=== PATIENT | male | born 1950 | race Caucasian/White ===

== ENCOUNTER 2016-07-18 06:24 | Emergency (ER) | payer OTHER ==
[~2016-07-18] VITALS: Ht 172.7 cm; Wt 131.8 kg
[~2016-07-18 06:24] MED LIST: CLON1TAB3 PO; FURO40TA3 PO
[2016-07-18 06:33] VITALS: TEMP 36.4; Ht 172.7 cm; Wt 131.8 kg
[2016-07-18] MEDS ORDERED: ACETAMINOPHEN 500 MG TAB PO STA (06:42)
[2016-07-18 06:45] VITALS: O2SAT 96
[2016-07-18] MEDS ORDERED: ALBUT/IPRATROP 3MG/0.5MG NEB 3 ML VIAL INH ONE (06:45)
--- NOTE | 2016-07-18 06:46 | EMERGENCY ROOM VISIT NOTE ---
History Report prepared by Jany: Raymon Zavala Under the Supervision of: Dr. Julián Alberts M.D. First contact with patient: 06:37 Chief Complaint: RESPIRATORY PROBLEMS Stated Complaint: TROUBLE BREATHING Nursing Triage Summary: Cough, chest congestion, SOB that started Friday. Pt taking Mucinex and albuterol neb treatments with no relief. History of Present Illness The patient is a 66 year old male who presents to the Emergency Room with complaints of persistent shortness of breath that started 3 days ago. He also says he has chest congestion and a cough. The patient notes that his chest feels tight. He denies any fevers. The patient has been taking Mucinex and used an albuterol nebulizer treatment twice, with no relief. He is diabetic. The patient is not sure whether he has used steroids in the past for respiratory problems. Source of History: patient Onset: 3 days ago Position: other (global - shortness of breath) Timing: other (persistent) Associated Symptoms: + cough, No fevers Note: Associated symptoms: Chest tightness and chest congestion. Review of Systems See HPI for pertinent positives & negatives. A total of 10 systems reviewed and were otherwise negative. Past Medical & Surgical Medical Problems: (1) Acute kidney injury (2) Acute on chronic diastolic heart failure (3) Atrial fibrillation (4) Benign hypertension (5) Chronic kidney disease stage 3 (6) Chronic obstructive lung disease (7) Diabetes mellitus (8) Hyperlipidemia (9) Sepsis (10) Staghorn calculus (11) Transitional cell carcinoma of bladder (12) urosepsis (13) UTI (urinary tract infection) Surgical Problems: (1) History of urostomy Family History FH: coronary artery disease Social History Smoking Status: Former Smoker Alcohol Use: none Drug Use: none Marital Status: Housing Status: lives with family Occupation Status: retired Current/Historical Medications Scheduled Allopurinol (Zyloprim), 100 MG PO DAILY Aspirin Enteric Coated (Ecotrin Or Generic), 81 MG PO DAILY Atorvastatin (Lipitor), 80 MG PO QPM Budesonide/Formoterol Fumarate (Symbicort 80/4.5 Inhaler), 1 PUFF INH BID Buspirone Hcl (Buspirone Hcl), 2 TAB PO BID Cholecalciferol (Vitamin D 1000 Unit), 2,000 INTER.UNIT PO DAILY Clopidogrel (Plavix), 75 MG PO DAILY Cyanocobalamin (B-12), 2,500 MCG PO DAILY Ferrous Sulfate (Kp Ferrous Sulfate), 1 TAB PO DAILY Furosemide (Lasix), 40 MG PO DAILY Furosemide (Lasix), 40 MG PO HS 4XWK Gabapentin (Neurontin), 300 MG PO TID Glipizide (Glucotrol), 2.5 MG PO DAILY Loratadine (Claritin), 10 MG PO DAILY Melatonin (Melatonin), 10 MG PO HS Metoprolol Tartrate (Lopressor) (Lopressor), 50 MG PO BID Ocuvite Preservision (Ocuvite Preservision), 1 TAB PO DAILY Oseltamivir Phosphate (Tamiflu), 75 MG PO BID Pantoprazole Sodium (Protonix), 40 MG PO DAILY Paroxetine (Paxil), 40 MG PO QPM Scheduled PRN Clonazepam (Klonopin), 0.5 MG PO DAILY PRN for Anxiety Nitroglycerin (Nitrostat), 0.3 MG UT UD PRN for Chest Pain Miscellaneous Medications Colchicine (Colchicine), 0.6 MG PO Spironolactone (Aldactone), 25 MG PO Trazodone Hcl (Trazodone), 100 MG PO Allergies Coded Allergies: Codeine (Verified Adverse Reaction, Mild, "trips me out", 07/18/16) CONFUSION Promethazine (Verified Adverse Reaction, Unknown, UNCONTROLLED MUSCLE MOVEMENTS, 07/18/16) Physical Exam Vital Signs Date Time Temp Pulse Resp B/P Pulse Ox O2 Delivery O2 Flow Rate FiO2 07/18/16 08:54 68 20 143/73 96 07/18/16 08:30 68 20 143/73 96 Room Air 07/18/16 07:25 64 16 95 Room Air 07/18/16 06:51 66 07/18/16 06:45 96 Room Air 07/18/16 06:33 36.4 71 20 154/98 92 Room Air 07/18/16 06:29 92 Room Air Physical Exam GENERAL: Patient is a healthy-appearing well-nourished HEAD: Normocephalic atraumatic EYES: Ocular movements intact pupils equal and react to light OROPHARYNX mucous membranes are moist no exudates present no erythema or edema present NECK: Supple no nuchal rigidity CHEST: Good equal expansion LUNGS: Bilateral expiratory wheezing CARDIAC: Normal S1 and S2 ABDOMEN: Soft nontender no guarding BACK: No CVA tenderness EXTREMITIES: No pain upon palpation normal muscle strength in all groups no clubbing cyanosis or edema NEURO: Patient is following commands is answering questions appropriately. Alert and oriented x3 Cranial Nerves 2-12 grossly intact Medical Decision & Procedures ER Provider Diagnostic Interpretation: X-ray results as stated below per interpretation by me and the radiologist: SINGLE VIEW CHEST CLINICAL HISTORY: Dyspnea. Atypical chest pain. FINDINGS: An AP, portable, upright chest radiograph is compared to study dated 02/15/2016. The examination is degraded by portable technique and apical lordotic positioning. A 2-lead cardiac pacemaker is unchanged in position and partially obscures the left apex. The heart is enlarged and there is atherosclerotic calcification of the thoracic aorta. The pulmonary vasculature is noncongested. Chronic interstitial thickening is unchanged. There is minimal bibasilar atelectasis. No airspace consolidation is seen typical for pneumonia and there is no pleural effusion. No pneumothorax is seen. The skeletal structures are osteopenic. The bony thorax is grossly intact. IMPRESSION: 1. Cardiomegaly and cardiac pacemaker. There is no radiographic evidence of congestive failure. 2. No airspace consolidation or pleural effusion is identified. Electronically signed by: Asaf Rose M.D. 07/18/2016 7:36 AM Dictated Date/Time: 07/18/2016 7:35 AM Laboratory Results 07/18/16 07:00 Red Blood Count 4.78, Mean Corpuscular Volume 88.9, Mean Corpuscular Hemoglobin 31.2, Mean Corpuscular Hemoglobin Concent 35.1, Mean Platelet Volume 11.7, Neutrophils (%) (Auto) 77.9, Lymphocytes (%) (Auto) 11.8, Monocytes (%) (Auto) 9.3, Eosinophils (%) (Auto) 0.6, Basophils (%) (Auto) 0.2, Neutrophils # (Auto) 6.68, Lymphocytes # (Auto) 1.01, Monocytes # (Auto) 0.80, Eosinophils # (Auto) 0.05, Basophils # (Auto) 0.02 07/18/16 07:00 Test 07/18/16 07:00 07/18/16 07:15 White Blood Count 8.58 K/uL (4.8-10.8) Red Blood Count 4.78 M/uL (4.7-6.1) Hemoglobin 14.9 g/dL (14.0-18.0) Hematocrit 42.5 % (42-52) Mean Corpuscular Volume 88.9 fL (80-100) Mean Corpuscular Hemoglobin 31.2 pg (25-34) Mean Corpuscular Hemoglobin Concent 35.1 g/dl (32-36) Platelet Count 152 K/uL (130-400) Mean Platelet Volume 11.7 fL (7.4-10.4) Neutrophils (%) (Auto) 77.9 % Lymphocytes (%) (Auto) 11.8 % Monocytes (%) (Auto) 9.3 % Eosinophils (%) (Auto) 0.6 % Basophils (%) (Auto) 0.2 % Neutrophils # (Auto) 6.68 K/uL (1.4-6.5) Lymphocytes # (Auto) 1.01 K/uL (1.2-3.4) Monocytes # (Auto) 0.80 K/uL (0.11-0.59) Eosinophils # (Auto) 0.05 K/uL (0-0.5) Basophils # (Auto) 0.02 K/uL (0-0.2) RDW Standard Deviation 45.6 fL (36.4-46.3) RDW Coefficient of Variation 14.1 % (11.5-14.5) Immature Granulocyte % (Auto) 0.2 % Immature Granulocyte # (Auto) 0.02 K/uL (0.00-0.02) Anion Gap 9.0 mmol/L (3-11) Est Creatinine Clear Calc Drug Dose 49.3 ml/min Estimated GFR () 41.1 Estimated GFR (Non- 35.4 BUN/Creatinine Ratio 17.8 (10-20) Calcium Level 8.4 mg/dl (8.5-10.1) Total Bilirubin 0.5 mg/dl (0.2-1) Aspartate Amino Transf (AST/SGOT) 28 U/L (15-37) Alanine Aminotransferase (ALT/SGPT) 33 U/L (12-78) Alkaline Phosphatase 139 U/L (45-117) Total Creatine Kinase 129 U/L (39-308) Creatine Kinase MB 3.2 ng/ml (0.5-3.6) Creatine Kinase MB Ratio 2.5 (0-3.0) Troponin I < 0.015 ng/ml (0-0.045) Pro-B-Type Natriuretic Peptide 2062 pg/ml (0-900) Total Protein 8.1 gm/dl (6.4-8.2) Albumin 4.0 gm/dl (3.4-5.0) Globulin 4.1 gm/dl (2.5-4.0) Albumin/Globulin Ratio 1.0 (0.9-2) Chemistry Specimen Hemolysis Influenza Type A Antigen POS for Influ A (NEG) Influenza Type B Antigen Neg for Influ B (NEG) Labs reviewed by ED physician. Medications Administered Medications (Trade) Dose Ordered Sig/Major Route Start Time Stop Time Status Last Admin Dose Admin Albuterol/ Ipratropium (Duoneb) 12 ml ONE ONCE INH 07/18/16 06:45 07/18/16 06:46 DC 07/18/16 07:30 12 ML Acetaminophen (Tylenol Tab) 1,000 mg NOW STAT PO 07/18/16 06:42 07/18/16 06:44 DC 07/18/16 07:10 1,000 MG Methylprednisolone Sodium Succinate (Solu-Medrol IV) 60 mg NOW STAT IV 07/18/16 07:51 07/18/16 07:52 DC 07/18/16 08:02 60 MG Oseltamivir Phosphate (Tamiflu Cap) 75 mg NOW STAT PO 07/18/16 08:19 07/18/16 08:20 DC 07/18/16 08:19 75 MG Albuterol (Ventolin Hfa Inhaler) 2 puffs NOW STAT INH 07/18/16 08:51 07/18/16 08:52 DC 07/18/16 09:22 2 PUFFS ECG Indication: SOB/dyspnea Rate (beats per minute): 75 Rhythm: other (paced rhythm) Findings: no acute ischemic change, no ectopy ED Course 0639: Past medical records reviewed. The patient was evaluated in room B3B. A complete history and physical examination was performed. 0642: Ordered Tylenol Tab 1000 mg PO. 0645: Ordered Duoneb 12 ml INH. 0751: Ordered Solu-Medrol IV 60 mg IV. 0819: Ordered Tamiflu Cap 75 mg PO. 0848: I reevaluated the patient and he is resting comfortably. The patient verbally expressed understanding and agreement of the treatment plan. The patient will be discharged. 0851: Ordered Ventolin Hfa Inhaler 2 puffs INH. Medical Decision Differential diagnosis: Etiologies such as infections, reactive airway disease, pneumonia, pneumothorax , COPD, CHF, cardiac ischemia, pulmonary embolism, musculoskeletal, gastrointestinal, as well as others were entertained. This is a 66-year-old male who presents emergency department complaining of shortness of breath. I willpatient is not hypoxic on room air. He is wheezing on examination therefore he was given an hour-long breathing treatment. He is also started on Solu-Medrol. His sugar is somewhat elevated and I will hold off on putting the patient on prednisone. He is influenza positive. For this reason he was given Tamiflu. I will have the patient follow-up with his primary care physician. He was also given albuterol inhaler to use twice every 6 hours. Impression Primary Impression: Influenza A Scribe Attestation The scribe's documentation has been prepared under my direction and personally reviewed by me in its entirety. I confirm that the note above accurately reflects all work, treatment, procedures, and medical decision making performed by me. Departure Information Dispostion Home / Self-Care Prescriptions Oseltamivir Phosphate (Tamiflu) 75 Mg Cap 75 MG PO BID, #10 CAP Prov: Julián Alberts MD 07/18/16 Referrals Ammy Cabrera M.D. (PCP) Forms HOME CARE DOCUMENTATION FORM, IMPORTANT VISIT INFORMATION, WORK / SCHOOL INSTRUCTIONS Patient Instructions ED Flu, My [facility] Additional Instructions Use inhaler twice every 6 hours Use tylenol 1000 mg Tylenol every 6 hours You have been examined and treated today on an emergency basis only. This is not a substitute for, or an effort to provide, complete comprehensive medical care. It is impossible to recognize and treat all injuries or illnesses in a single emergency department visit. It is therefore important that you follow up closely with Dr Cabrera. Call as soon as possible for an appointment. Thank you for your time and consideration. I look forward to speaking with you again soon. Please don't hesitate to call us if you have any questions.
[2016-07-18 07:25] VITALS: PULSE 64; O2SAT 95
[2016-07-18 07:32] LABS: BASO % 0.2 %; BASO ABS # 0.02 K/uL (0-0.2); COMPLETE YES; EOS % 0.6 %; HEMATOCRIT 42.5 % (42-52); IG% 0.2 %; LYMPH % 11.8 %; LYMPH ABS # 1.01 K/uL (1.2-3.4); MEAN CELL VOLUME 88.9 fL (80-100); MEAN CORPUSCULAR HEMOGLOBIN 31.2 pg (25-34); MEAN CORPUSCULAR HGB CONC 35.1 g/dl (32-36); MEAN PLATELET VOLUME 11.7 fL (7.4-10.4); MONO % 9.3 %; NEUT % 77.9 %; PLATELET COUNT 152 K/uL (130-400); RED BLOOD COUNT 4.78 M/uL (4.7-6.1); WHITE BLOOD COUNT 8.58 K/uL (4.8-10.8)
--- NOTE | 2016-07-18 07:38 | DIAGNOSTIC IMAGING REPORT ---
SINGLE VIEW CHEST CLINICAL HISTORY: Dyspnea. Atypical chest pain. FINDINGS: An AP, portable, upright chest radiograph is compared to study dated 02/15/2016. The examination is degraded by portable technique and apical lordotic positioning. A 2-lead cardiac pacemaker is unchanged in position and partially obscures the left apex. The heart is enlarged and there is atherosclerotic calcification of the thoracic aorta. The pulmonary vasculature is noncongested. Chronic interstitial thickening is unchanged. There is minimal bibasilar atelectasis. No airspace consolidation is seen typical for pneumonia and there is no pleural effusion. No pneumothorax is seen. The skeletal structures are osteopenic. The bony thorax is grossly intact. IMPRESSION: 1. Cardiomegaly and cardiac pacemaker. There is no radiographic evidence of congestive failure. 2. No airspace consolidation or pleural effusion is identified. Electronically signed by: Asaf Rose M.D. 07/18/2016 7:36 AM Dictated Date/Time: 07/18/2016 7:35 AM
[2016-07-18] MEDS ORDERED: COLC0.6T54 PO (07:42)
[2016-07-18] MEDS ORDERED: FERR1TAB13 PO (07:42)
[2016-07-18 07:44] LABS: ALT/SGPT 33 U/L (12-78); AST/SGOT 28 U/L (15-37); BLOOD UREA NITROGEN 34 mg/dl (7-18); BUN/CREATININE RATIO 17.8 (10-20); CALCIUM 8.4 mg/dl (8.5-10.1); CARBON DIOXIDE 29 mmol/L (21-32); CHLORIDE 102 mmol/L (98-107); GLUCOSE 189 mg/dl (70-99); SODIUM 140 mmol/L (136-145)
[2016-07-18 07:49] LABS: ALKALINE PHOSPHATASE 139 U/L (45-117); CKMB/CK RATIO 2.5 (0-3.0)
[2016-07-18] MEDS ORDERED: METHYLPREDNISOLONE 125 MG VIAL IV STA (07:51)
[2016-07-18] MEDS ORDERED: OSELTAMIVIR PHOSPHATE 75 MG CAP PO STA (08:19)
[2016-07-18] MEDS ORDERED: ALBUTEROL HFA 8 GM INHALER INH STA (08:51)
[2016-07-18] MEDS ORDERED: NF406 PO (08:51)
[2016-07-18 08:54] VITALS: BP 143/73; PULSE 68; O2SAT 96
[2016-10-17] MEDS ORDERED: PRED10TA PO (11:06)
[2016-10-17] MEDS ORDERED: IPRASOL4 INH (11:06)
[2016-10-17] MEDS ORDERED: CLON1TAB3 PO (11:10)
[2017-01-23] MEDS ORDERED: SYMIN/8045 INH (05:47)
[2017-01-23] MEDS ORDERED: SPIR25TA PO (07:42)
[2017-01-23] MEDS ORDERED: TRAZ100T29 PO (07:42)
[2017-01-23] MEDS ORDERED: PXL/40 PO (10:36)
[2017-01-23] MEDS ORDERED: FRS/40 PO (13:45)
[2017-01-23] MEDS ORDERED: ASPI81TA21 PO (14:21)
[2017-01-23] MEDS ORDERED: MELA1CAP9 PO (14:53)
[2017-01-23] MEDS ORDERED: GLIP5TAB11 PO (15:50)
[2017-01-23] MEDS ORDERED: CYAN1TAB17 PO (15:50)
[2017-01-23] MEDS ORDERED: ALLO100T PO (16:30)
[2017-01-23] MEDS ORDERED: PANT40TA PO (16:30)
[2017-01-23] MEDS ORDERED: CHOL100027 PO (16:30)
[2017-01-23] MEDS ORDERED: BUSP-8 PO (17:01)
[2017-01-23] MEDS ORDERED: MULT-190 PO (17:01)
[2017-01-23] MEDS ORDERED: CLOP1TAB15 PO (17:51)
[2017-01-23] MEDS ORDERED: GABA-113 PO (17:51)
== END 2016-07-18 08:59 | disposition home or self-care (01) ==
LOC: C.EDB 06:25
DX: J09.X2 Influenza due to identified novel influenza A virus with other respiratory manifestations (principal); I48.91 Unspecified atrial fibrillation; I12.9 Hypertensive chronic kidney disease with stage 1 through stage 4 chronic kidney disease, or unspecified chronic kidney disease; N18.3 Chronic kidney disease, stage 3 (moderate); E11.9 Type 2 diabetes mellitus without complications; E78.5 Hyperlipidemia, unspecified; J44.9 Chronic obstructive pulmonary disease, unspecified; I50.32 Chronic diastolic (congestive) heart failure; Z85.51 Personal history of malignant neoplasm of bladder; Z87.891 Personal history of nicotine dependence; Z79.82 Long term (current) use of aspirin; Z79.899 Other long term (current) drug therapy; Z88.5 Allergy status to narcotic agent; Z88.8 Allergy status to other drugs, medicaments and biological substances; Z82.49 Family history of ischemic heart disease and other diseases of the circulatory system

== ENCOUNTER 2016-10-16 09:54 | Inpatient (IN) | payer OTHER ==
[2016-10-16] VITALS (7 sets, daily range): BP systolic 119–152; BP diastolic 72–76; PULSE 60–68; TEMP 36.4–36.7; O2SAT 93–96; BMI 43.3
[~2016-10-16] VITALS: Ht 172.7 cm; Wt 129.0 kg
[~2016-10-16 09:54] MED LIST changes: +COLC0.6T54 PO; +FERR1TAB13 PO; +NF406 PO
[2016-10-16] MEDS ORDERED: ALBUT/IPRATROP 3MG/0.5MG NEB 3 ML VIAL INH STA (10:29)
[2016-10-16] MEDS ORDERED: CEFTRIAXONE SOD INJ 1 GM ADDVIAL IV STA (10:29)
[2016-10-16] MEDS ORDERED: PSEU60TA80 PO (10:38)
--- NOTE | 2016-10-16 10:54 | DIAGNOSTIC IMAGING REPORT ---
CHEST ONE VIEW PORTABLE HISTORY: EVALUATE RESPIRATORY DISTRESS.DYSPNEA COMPARISON: Chest 07/18/2016. FINDINGS: The lungs are clear. Cardiac silhouette remains mildly enlarged. No pleural effusions. No pneumothorax. Left-sided dual 0 pacemaker. IMPRESSION: No significant change compared to the prior study. No acute process. Stable mild cardiomegaly. Electronically signed by: James Wilson M.D. 10/16/2016 10:53 AM Dictated Date/Time: 10/16/2016 10:51 AM
[2016-10-16 11:25] LABS: BASO % 0.2 %; BASO ABS # 0.01 K/uL (0-0.2); COMPLETE YES; EOS % 2.4 %; HEMATOCRIT 40.9 % (42-52); IG% 0.4 %; LYMPH % 18.3 %; LYMPH ABS # 1.01 K/uL (1.2-3.4); MEAN CELL VOLUME 94.5 fL (80-100); MEAN CORPUSCULAR HEMOGLOBIN 31.9 pg (25-34); MEAN CORPUSCULAR HGB CONC 33.7 g/dl (32-36); MEAN PLATELET VOLUME 12.1 fL (7.4-10.4); NEUT % 68.7 %; PLATELET COUNT 143 K/uL (130-400); RED BLOOD COUNT 4.33 M/uL (4.7-6.1); WHITE BLOOD COUNT 5.52 K/uL (4.8-10.8)
[2016-10-16 11:53] LABS: ALB/GLOB RATIO 0.9 (0.9-2); ALKALINE PHOSPHATASE 113 U/L (45-117); ALT/SGPT 29 U/L (12-78); BLOOD UREA NITROGEN 33 mg/dl (7-18); BUN/CREATININE RATIO 18.2 (10-20); CALCIUM 8.7 mg/dl (8.5-10.1); CARBON DIOXIDE 27 mmol/L (21-32); CHLORIDE 107 mmol/L (98-107); GLUCOSE 186 mg/dl (70-99)
[2016-10-16 11:59] LABS: POTASSIUM 4.5 mmol/L (3.5-5.1); SODIUM 142 mmol/L (136-145)
[2016-10-16 12:05] LABS: AST/SGOT 31 U/L (15-37)
[2016-10-16] MEDS ORDERED: METHYLPREDNISOLONE 125 MG VIAL IV STA (12:16)
[2016-10-16] MEDS ORDERED: POLYETHYLENE (MIRALAX) 17 GM PACK PO PRN (13:45)
[2016-10-16] MEDS ORDERED: ALUMINUM/MAGNESIUM/SIMETH (MAALOX MAX) 30 ML UDC PO PRN (13:45)
[2016-10-16] MEDS ORDERED: ONDANSETRON INJ 2 MG/ML 2 ML VIAL IV PRN (13:45)
[2016-10-16] MEDS ORDERED: PNEUMOCOCCAL POLYSACCHARIDES 25 MCG/0.5 ML VIAL/SYR IM. ONE (13:45)
[2016-10-16] MEDS ORDERED: ACETAMINOPHEN 325 MG TAB PO PRN (13:45)
[2016-10-16] MEDS ORDERED: ALBUT/IPRATROP 3MG/0.5MG NEB 3 ML VIAL INH PRN (14:00)
[2016-10-16] MEDS ORDERED: CLONAZEPAM 0.5 MG TAB PO PRN (14:45)
[2016-10-16] MEDS: ALBUT/IPRATROP 3MG/0.5MG NEB 3 ML VIAL INH SCH ×2 (15:25→19:19)
--- NOTE | 2016-10-16 15:38 | HISTORY & PHYSICAL EXAMINATION ---
DATE OF ADMISSION: 10/16/2016 ADMITTING DIAGNOSIS: Acute exacerbation of chronic obstructive pulmonary disease. HISTORY OF PRESENT ILLNESS: Mr. Pierce is a 66-year-old male who suffers from COPD has known coronary disease. The patient has had one week preceded illness of upper respiratory symptoms, sore throat, and a cough. The patient said last night he had worse congestion, worse coughing when is unable to lay flat due to shortness of breath. The patient tried using his home CPAP, but was unable to use it. The patient was attempted use Mucinex and Sudafed at home without much help. The patient has also had changes in his bowel habits of late having some loose stools; however, his has been changing his diet and I will see putting him on Nutrisystem. The patient is typically not on oxygen at home. The patient's also recently was ill. In the Emergency Department, he was found to be tachypneic with a respiratory rate as high as 29. He was found to be hypoxic with 89 and 88, listed as his oximetry. He is recommended for admission of acute exacerbation of COPD. The patient has had no fevers at home and no change in sputum color, quantity or consistency, in fact he has had no sputum production, according to the patient, although it is opposite to the ER note. PAST MEDICAL HISTORY: Significant for coronary artery disease with a coronary stent. He also has had a history of recurrent pericarditis status post pericardial window. He has got a history of chronic diastolic heart failure, atrial fibrillation with a controlled ventricular rate on chronic anticoagulation and a pacemaker. He has history of hypertension, COPD, diabetes on oral medications, dyslipidemia, previous sepsis, previous transitional cell carcinoma status post bladder resection and ileal conduit, history of staghorn calculus, history of gout. MEDICATIONS: On presentation, allopurinol 100 a day, aspirin 81 a day, Plavix 75 a day, atorvastatin 80 a day, Symbicort 80/4.5 b.i.d., BuSpar 2 tablets t.i.d., vitamin D 1000 a day; Lasix 40 every day and 40 additional on Friday, Friday, Friday, and Friday; gabapentin 300 t.i.d., glipizide 2.5 a day, loratadine 10 a day as needed, melatonin 10 mg at bedtime, metoprolol 50 b.i.d., Protonix 40 a day, Paxil 40 a day and clonazepam 0.5 as needed for anxiety. SOCIAL HISTORY: The patient quit smoking but does have an [id number]-wmot smoking. He has not smoked for 15 years. He does not drink alcohol. He is accompanied by his . FAMILY HISTORY: Positive for known coronary artery disease and diabetes. REVIEW OF SYSTEMS: Ten systems were reviewed and are negative unless listed above and most notably is a stool habit changes, this is soft 2 loose brown stools, usually not more than 1 or 2 a day. He has had no urinary changes. PHYSICAL EXAMINATION: GENERAL: he is a pleasant gentleman. He is morbidly obese. VITAL SIGNS: He febrile with a temperature of 36.5, respiration rate as mentioned is ranging from 15-29, heart rate is in the 50s-60s, BP 136/74 and O2 sat is 88-89 on room air 90s augmentation on 2 liters. HEENT: PERRL, EOMI. Oropharynx is clear. He has got an upper dental plate. He has no evidence of thrush. His oropharynx is slightly dry. NECK: Without lymphadenopathy or JVD. His trachea is midline. HEART: Regular to bradycardic without murmurs. LUNGS: Have decreased breath sounds at the bases, some minor rhonchi that clear with coughing, otherwise good air movement. ABDOMEN: Obese, normoactive bowel sounds and soft. He has got ileal conduit in his right lower quadrant, which appears to be in good condition draining clear adi urine. EXTREMITIES: With trace edema bilaterally, otherwise no cyanosis or clubbing. NEUROLOGIC: He is awake, alert and appropriate. Cranial nerves II-XII are intact. Equal symmetrical strength and sensation. LABORATORY DATA: White count is 5.5, H\T\H 13 and 40, platelet count 143. BUN and creatinine of 33 and 1.8, this is his baseline chronic kidney disease stage III, glucose slightly elevated at 186. His troponin is negative at 0.015. He had influenza which was negative x2. He had a chest x-ray which is a poor-penetrated film, no evidence of infiltrates, pacemaker is present. His EKG showing a ventricularly paced rhythm in the 60s. ASSESSMENT: A 66-year-old male here with acute exacerbation of chronic obstructive pulmonary disease. PLAN: Although, the patient has had a preceding infectious type prodrome, he has not had any fevers, changes in sputum production or white blood cell count, will hold off on antibiotics at this time. We will begin just with DuoNebs q.i.d. and Solu-Medrol 40 q. 12 hours. We will p.r.n. DuoNebs available and will consider for formoterol if the patient does not improve. Given his history of chronic diastolic heart failure, he does not appear to be an acute flare at this time; however, if he does not improve, may consider performing an echocardiogram. We will maintain his Lasix and his metoprolol as written. Metoprolol is also rate controlling for his atrial fibrillation. He will maintain his aspirin and his Plavix. There is no discussion of full anticoagulation for this patient and the patient says [facility]. If this becomes an issue, we will consider getting records. Regarding his diabetes, he will be on a diabetic diet. Continue his glipizide and on sliding scale insulin. Regarding his history of gout. We will maintain on allopurinol. Deep vein thrombosis prevention will be heparin. Anxiety and depression. Will continue his BuSpar and Paxil, and continue clonazepam p.r.n. This patient is a full code. [facility]
[2016-10-16 15:53] LABS: HEMATOCRIT 40.1 % (42-52); MEAN CELL VOLUME 94.6 fL (80-100); MEAN CORPUSCULAR HEMOGLOBIN 31.8 pg (25-34); MEAN CORPUSCULAR HGB CONC 33.7 g/dl (32-36); MEAN PLATELET VOLUME 11.9 fL (7.4-10.4); PLATELET COUNT 137 K/uL (130-400); RED BLOOD COUNT 4.24 M/uL (4.7-6.1); WHITE BLOOD COUNT 6.45 K/uL (4.8-10.8)
[2016-10-16 16:00] LABS: PROTHROMBIN TIME (PATIENT) 10.8 SECONDS (9.0-12.0)
--- NOTE | 2016-10-16 16:14 | Medical Student: [facility] ---
Med Student History & Physical Date & Time of Service: October 16, 2016 at 15:43 Chief Complaint: Cold - Referred By [facility] Primary Care Physician: Ammy Cabrera M.D. History of Present Illness Source: patient, spouse, hospital records This is a 66 yo male with a history of COPD and multiple other medical problems , who presents with increased shortness of breath of one day's duration. This shortness of breath began last night before bed, following a week of cold-like symptoms. He reports that he had so much difficulty breathing when he went to lie down (despite using his CPAP) that he had to sleep on the couch sitting upright. When his shortness of breath had not resolved by this morning, [facility]. He reports that these symptoms were exacerbated by lying down and improved by sitting up. He does not report chest pain. Albuterol inhaler did not appear to improve his symptoms. Accompanying symptoms include rhinorrhea, increased cough with scant phlegm, and chills. The only medication he has taken for these symptoms is guaifenesin with pseudoephedrine. Past Medical/Surgical History PMH: COPD, CHF, recurrent pericardial effusions, bladder CA s/p cystectomy and urostomy placement, prostate CA, gout, DM2, HTN, stage 3 CKD, recurrent renal staghorn calculi Family History Father: heart disease Mother: heart disease Sibling(s): pertinent history of Social History Smoking Status: Former Smoker (80 pack-year history. quit in 2000) Drug Use: none Marital Status: Housing status: lives with family Occupational Status: retired Immunizations History of Influenza Vaccine: N/A Influenza Vaccine Date: Apr 02, 2010 History of Tetanus Vaccine?: Yes Tetanus Immunization Date: Jun 02, 2001 History of Pneumococcal: Unknown Pneumococcal Date: Mar 29, 2012 History of Hepatitis B Vaccine: Unknown Allergies Coded Allergies: Codeine (Verified Adverse Reaction, Mild, "trips me out", 07/18/16) CONFUSION Promethazine (Verified Adverse Reaction, Unknown, UNCONTROLLED MUSCLE MOVEMENTS, 07/18/16) Medications Allopurinol (Zyloprim), 100 MG PO DAILY Aspirin Enteric Coated (Ecotrin Or Generic), 81 MG PO DAILY Atorvastatin (Lipitor), 80 MG PO QPM Budesonide/Formoterol Fumarate (Symbicort 80/4.5 Inhaler), 1 PUFF INH BID Buspirone Hcl (Buspirone Hcl), 2 TAB PO BID Cholecalciferol (Vitamin D 1000 Unit), 2,000 INTER.UNIT PO DAILY Clonazepam (Klonopin), 0.5 MG PO DAILY PRN for Anxiety Clopidogrel (Plavix), 75 MG PO DAILY Cyanocobalamin (B-12), 2,500 MCG PO DAILY Ferrous Sulfate (Kp Ferrous Sulfate), 1 TAB PO DAILY Furosemide (Lasix), 40 MG PO DAILY Furosemide (Lasix), 40 MG PO HS 4XWK Gabapentin (Neurontin), 300 MG PO TID Glipizide (Glucotrol), 2.5 MG PO DAILY Loratadine (Claritin), 10 MG PO DAILY Melatonin (Melatonin), 10 MG PO HS Metoprolol Tartrate (Lopressor) (Lopressor), 50 MG PO BID Nitroglycerin (Nitrostat), 0.3 MG UT UD PRN for Chest Pain Ocuvite Preservision (Ocuvite Preservision), 1 TAB PO DAILY Pantoprazole Sodium (Protonix), 40 MG PO DAILY Paroxetine (Paxil), 40 MG PO QPM Pseudoephedrine-Guaifenesin (Mucinex D), 1 TAB PO BID Spironolactone (Aldactone), 25 MG PO Trazodone Hcl (Trazodone), 100 MG PO Review of Systems Constitutional: + chills, No fever, No sweats, No weight loss Eyes: + worsening of vision (some blurry vision in the morning while driving) ENT: No hearing loss, No unusual epistaxis Respiratory: + cough, + shortness of breath, + sputum, No wheezing Cardiovascular: + orthopnea, No chest pain Abdomen: + diarrhea (occasional loose stools), No nausea, No pain, No vomiting Musculoskeletal: + joint pain Neurologic: + numbness/tingling (peripheral neuropathy in feet), No weakness Hematologic / Lymphatic: No abnormal bleeding/bruising Integumentary: No new/changing skin lesions, No rash Physical Exam Vital Signs (24 Hours) Date Time Temp Pulse Resp B/P Pulse Ox O2 Delivery O2 Flow Rate FiO2 10/16/16 15:41 36.5 60 18 150/76 95 Nasal Cannula 2.0 10/16/16 15:26 61 16 93 Nasal Cannula 2.0 10/16/16 14:51 36.4 66 16 152/74 96 Nasal Cannula 2.0 10/16/16 14:28 64 22 136/74 93 10/16/16 13:57 95 Room Air 10/16/16 13:43 59 21 95 10/16/16 13:31 138/88 10/16/16 13:17 61 10/16/16 13:13 63 15 94 10/16/16 13:08 60 24 94 10/16/16 13:01 147/84 10/16/16 12:38 62 29 94 10/16/16 12:31 136/88 10/16/16 12:01 139/75 10/16/16 11:38 63 16 88 10/16/16 11:31 139/86 10/16/16 11:08 60 18 96 10/16/16 11:03 134/69 10/16/16 11:01 2 Nasal Cannula 10/16/16 10:54 60 18 89 10/16/16 10:44 126/56 10/16/16 10:26 60 10/16/16 10:13 152/97 10/16/16 10:13 93 Room Air 10/16/16 09:59 36.5 87 22 156/91 93 Room Air General Appearance: no apparent distress, + obese Head: normocephalic, atraumatic Eyes: PERRL, EOMI, sclerae normal ENT: hearing grossly normal, TMs normal, pharynx normal Neck: supple, no adenopathy, thyroid normal, no JVD Respiratory/Chest: chest non-tender, lungs clear, normal breath sounds Cardiovascular: regular rate, rhythm, no edema, no gallop, no murmur, normal peripheral pulses Abdomen/GI: normal bowel sounds, non tender, soft, + pertinent finding ( urostomy bag in right lower quadrant draining clear, straw-colored fluid) Extremities/Musculoskelatal: normal inspection, no calf tenderness, + pedal edema (trace bilateral pitting edema of lower extremities) Neurologic/Psych: alert, oriented x 3 Skin: normal color, no rash Diagnostics Laboratory Results Results Past 24 Hours Test 10/16/16 10:45 10/16/16 10:55 10/16/16 15:18 Range/Units Influenza Type A Antigen Neg for Influ A NEG Influenza Type B Antigen Neg for Influ B NEG White Blood Count 5.52 4.8-10.8 K/uL Red Blood Count 4.33 4.7-6.1 M/uL Hemoglobin 13.8 14.0-18.0 g/dL Hematocrit 40.9 42-52 % Mean Corpuscular Volume 94.5 80-100 fL Mean Corpuscular Hemoglobin 31.9 25-34 pg Mean Corpuscular Hemoglobin Concent 33.7 32-36 g/dl Platelet Count 143 130-400 K/uL Mean Platelet Volume 12.1 7.4-10.4 fL Neutrophils (%) (Auto) 68.7 % Lymphocytes (%) (Auto) 18.3 % Monocytes (%) (Auto) 10.0 % Eosinophils (%) (Auto) 2.4 % Basophils (%) (Auto) 0.2 % Neutrophils # (Auto) 3.80 1.4-6.5 K/uL Lymphocytes # (Auto) 1.01 1.2-3.4 K/uL Monocytes # (Auto) 0.55 0.11-0.59 K/uL Eosinophils # (Auto) 0.13 0-0.5 K/uL Basophils # (Auto) 0.01 0-0.2 K/uL RDW Standard Deviation 50.5 36.4-46.3 fL RDW Coefficient of Variation 14.8 11.5-14.5 % Immature Granulocyte % (Auto) 0.4 % Immature Granulocyte # (Auto) 0.02 0.00-0.02 K/uL Sodium Level 142 136-145 mmol/L Potassium Level 4.5 3.5-5.1 mmol/L Chloride Level 107 98-107 mmol/L Carbon Dioxide Level 27 21-32 mmol/L Anion Gap 8.0 3-11 mmol/L Blood Urea Nitrogen 33 7-18 mg/dl Creatinine 1.80 0.60-1.40 mg/dl Est Creatinine Clear Calc Drug Dose 51.5 ml/min Estimated GFR () 43.8 Estimated GFR (Non- 37.8 BUN/Creatinine Ratio 18.2 10-20 Random Glucose 186 70-99 mg/dl Calcium Level 8.7 8.5-10.1 mg/dl Total Bilirubin 0.6 0.2-1 mg/dl Aspartate Amino Transf (AST/SGOT) 31 15-37 U/L Alanine Aminotransferase (ALT/SGPT) 29 12-78 U/L Alkaline Phosphatase 113 45-117 U/L Troponin I < 0.015 0-0.045 ng/ml Total Protein 7.2 6.4-8.2 gm/dl Albumin 3.5 3.4-5.0 gm/dl Globulin 3.7 2.5-4.0 gm/dl Albumin/Globulin Ratio 0.9 0.9-2 Microbiology Results 10/16/16 Blood Culture, Received Pending 10/16/16 Blood Culture, Received Pending CXR normal EKG ventricularly paced ekg. no other abnormalities No change from prior EKG Impression Assessment and Plan This is a 66 yo male with an extensive past medical history who presents with acute shortness of breath, likely secondary to COPD exacerbation. 1. Acute COPD exacerbation: -Given solu-medrol 60 mg IV in emergency room -Solu-medrol 40 mg IV q12h tomorrow -O2 prn to remain above 90% saturation -Albuterol/Ipratropium nebulizer treatments q6h qidr plus q2hr prn -will hold off on abx for now -hold formoterol unless clinical improvement is not seen tomorrow. -hold budesonide 2. Coronary artery disease s/p bare metal stent in 2012: -Continue ASA 81 mg, atorvastatin 80 mg, clopidogrel 75 mg po daily 3. Congestive heart failure: -Continue furosemide 40 mg po qam and 40 mg po evenings MWFSa -Continue spironolactone 25 mg po daily 4. Urostomy: -Continue home care regimen for urostomy 5. Depression/Anxiety: -Continue paxil 10 mg po qpm and buspirone 20 mg po bid -Clonazepam 0.5 mg po bid prn for anxiety -Continue trazodone 100 mg po qhs 6. Gout: -Continue allopurinol 100 mg po daily 7. Diabetes Mellitus: -Continue glipizide 2.5 mg po qdb -Sliding scale insulin -Continue gabapentin 300 mg tid for neuropathy 8. GI prophylaxis: -Pantoprazole 40 mg po daily 9. DVT prophylaxis: -Heparin 5000 u subq q12h 10. Disposition: -Admit to med/surg -Diabetes diet Level of Care Med/Surg Advanced Directives Existing Living Will: Yes Existing Power of Dermatologist: Yes Resuscitation Status FULL RESUSCITATION DVT Prophylaxis unfractionated heparin SQ Note Total Time: Critical Care 30 - 74 minutes
[2016-10-16] MEDS: INSULIN ASPART 100 UNITS/ML 3 ML PEN SC SCH ×2 (18:03→20:40)
--- NOTE | 2016-10-16 18:44 | EMERGENCY ROOM VISIT NOTE ---
History Report prepared by Jany: Kristyn Pineda Under the Supervision of: Dr. Asaf López M.D. First contact with patient: 10:25 Chief Complaint: CONGESTION Stated Complaint: COLD - REFERRED BY [facility] Nursing Triage Summary: having worsening cough,congestion - unable to sleep with cpap last night. had to sleep in recliner. recently diagnosed with bronchitis. significant past medical history for CAD with pacer, COPD History of Present Illness The patient is a 66 year old male who presents to the Emergency Room with complaints of worsening congestion starting 1 week ago. [facility]. He has had a cough and congestion for the past week, but it worsened last night. He was unable to lay in bed because of the shortness of breath that occurred when he tried to lay flat. He tried using CPap , but was still unable to sleep. He has been taking Mucinex to no significant relief. He has been coughing a lot, bringing up some sputum at times. His noticed that his voice is hoarse. He denies any fever, vomiting. He notes that he has been having diarrhea for several months. His recently had bronchitis. He has a history of lung disease and has an inhaler and nebulizer at home. He is not on oxygen at home. He is not on any antibiotics or steroids. He is on Plavix. He had his flu shot this year. He has been eating and drinking well. He has a history of diabetes. Source of History: patient Onset: 1 week ago Position: other (global) Quality: other (congestion) Timing: worsening Associated Symptoms: + cough, + diarrhea, No fevers, No vomiting Note: Pt reports hoarse voice. Review of Systems See HPI for pertinent positives & negatives. A total of 10 systems reviewed and were otherwise negative. 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 (13) urosepsis (14) UTI (urinary tract infection) Surgical Problems: (1) History of urostomy Family History FH: coronary artery disease Social History Smoking Status: Former Smoker Alcohol Use: none Drug Use: none Marital Status: Housing Status: lives with family Occupation Status: retired Current/Historical Medications Scheduled Allopurinol (Zyloprim), 100 MG PO DAILY Aspirin Enteric Coated (Ecotrin Or Generic), 81 MG PO DAILY Atorvastatin (Lipitor), 80 MG PO QPM Budesonide/Formoterol Fumarate (Symbicort 80/4.5 Inhaler), 1 PUFF INH BID Buspirone Hcl (Buspirone Hcl), 2 TAB PO BID Cholecalciferol (Vitamin D 1000 Unit), 2,000 INTER.UNIT PO DAILY Clopidogrel (Plavix), 75 MG PO DAILY Cyanocobalamin (B-12), 2,500 MCG PO DAILY Ferrous Sulfate (Kp Ferrous Sulfate), 1 TAB PO DAILY Furosemide (Lasix), 40 MG PO DAILY Furosemide (Lasix), 40 MG PO HS 4XWK Gabapentin (Neurontin), 300 MG PO TID Glipizide (Glucotrol), 2.5 MG PO DAILY Loratadine (Claritin), 10 MG PO DAILY Melatonin (Melatonin), 10 MG PO HS Metoprolol Tartrate (Lopressor) (Lopressor), 50 MG PO BID Ocuvite Preservision (Ocuvite Preservision), 1 TAB PO DAILY Pantoprazole Sodium (Protonix), 40 MG PO DAILY Paroxetine (Paxil), 40 MG PO QPM Pseudoephedrine-Guaifenesin (Mucinex D), 1 TAB PO BID Scheduled PRN Clonazepam (Klonopin), 0.5 MG PO DAILY PRN for Anxiety Nitroglycerin (Nitrostat), 0.3 MG UT UD PRN for Chest Pain Miscellaneous Medications Spironolactone (Aldactone), 25 MG PO Trazodone Hcl (Trazodone), 100 MG PO Allergies Coded Allergies: Codeine (Verified Adverse Reaction, Mild, "trips me out", 07/18/16) CONFUSION Promethazine (Verified Adverse Reaction, Unknown, UNCONTROLLED MUSCLE MOVEMENTS, 07/18/16) Physical Exam Vital Signs Date Time Temp Pulse Resp B/P Pulse Ox O2 Delivery O2 Flow Rate FiO2 10/16/16 13:43 59 21 95 10/16/16 13:31 138/88 5/17/17 13:17 61 10/16/16 13:13 63 15 94 10/16/16 13:08 60 24 94 10/16/16 13:01 147/84 10/16/16 12:38 62 29 94 10/16/16 12:31 136/88 10/16/16 12:01 139/75 10/16/16 11:38 63 16 88 10/16/16 11:31 139/86 10/16/16 11:08 60 18 96 10/16/16 11:03 134/69 10/16/16 11:01 2 Nasal Cannula 10/16/16 10:54 60 18 89 10/16/16 10:44 126/56 10/16/16 10:26 60 10/16/16 10:13 152/97 10/16/16 10:13 93 Room Air 10/16/16 09:59 36.5 87 22 156/91 93 Room Air Physical Exam GENERAL: Patient is in no acute distress. HEENT: No acute trauma, normocephalic atraumatic, mucous membranes moist, no nasal congestion, no scleral icterus. NECK: No stridor, no adenopathy, no meningismus, trachea is midline. LUNGS: Decreased breath sounds, breath sounds equal bilaterally, no wheezing, no rhonchi, dry cough noted. HEART: Without murmurs gallops or rubs, regular rate and rhythm. ABDOMEN: Soft, nontender, bowel sounds positive, no hernias, no peritonitis. EXTREMITIES: No cyanosis or edema, full range of motion of all the joints without pain or difficulty, no signs for acute trauma. NEUROLOGIC: Oriented x 3, no acute motor or sensory deficits, no focal weakness. SKIN: No rash, no jaundice, no diaphoresis. Medical Decision & Procedures ER Provider Diagnostic Interpretation: X-ray results as stated below per interpretation by me and the radiologist: CHEST ONE VIEW PORTABLE HISTORY: EVALUATE RESPIRATORY DISTRESS.DYSPNEA COMPARISON: Chest 07/18/2016. FINDINGS: The lungs are clear. Cardiac silhouette remains mildly enlarged. No pleural effusions. No pneumothorax. Left-sided dual 0 pacemaker. IMPRESSION: No significant change compared to the prior study. No acute process. Stable mild cardiomegaly. Electronically signed by: James Wilson M.D. 10/16/2016 10:53 AM Dictated Date/Time: 10/16/2016 10:51 AM Laboratory Results 10/16/16 10:55 Test 10/16/16 10:45 10/16/16 10:55 Influenza Type A Antigen Neg for Influ A (NEG) Influenza Type B Antigen Neg for Influ B (NEG) Immature Granulocyte % (Auto) 0.4 % White Blood Count 5.52 K/uL (4.8-10.8) Red Blood Count 4.33 M/uL (4.7-6.1) Hemoglobin 13.8 g/dL (14.0-18.0) Hematocrit 40.9 % (42-52) Mean Corpuscular Volume 94.5 fL (80-100) Mean Corpuscular Hemoglobin 31.9 pg (25-34) Mean Corpuscular Hemoglobin Concent 33.7 g/dl (32-36) Platelet Count 143 K/uL (130-400) Mean Platelet Volume 12.1 fL (7.4-10.4) Neutrophils (%) (Auto) 68.7 % Lymphocytes (%) (Auto) 18.3 % Monocytes (%) (Auto) 10.0 % Eosinophils (%) (Auto) 2.4 % Basophils (%) (Auto) 0.2 % Neutrophils # (Auto) 3.80 K/uL (1.4-6.5) Lymphocytes # (Auto) 1.01 K/uL (1.2-3.4) Monocytes # (Auto) 0.55 K/uL (0.11-0.59) Eosinophils # (Auto) 0.13 K/uL (0-0.5) Basophils # (Auto) 0.01 K/uL (0-0.2) Immature Granulocyte # (Auto) 0.02 K/uL (0.00-0.02) Anion Gap 8.0 mmol/L (3-11) Est Creatinine Clear Calc Drug Dose 51.5 ml/min Estimated GFR () 43.8 Estimated GFR (Non- 37.8 BUN/Creatinine Ratio 18.2 (10-20) Calcium Level 8.7 mg/dl (8.5-10.1) Total Bilirubin 0.6 mg/dl (0.2-1) Aspartate Amino Transf (AST/SGOT) 31 U/L (15-37) Alanine Aminotransferase (ALT/SGPT) 29 U/L (12-78) Alkaline Phosphatase 113 U/L (45-117) Troponin I < 0.015 ng/ml (0-0.045) Total Protein 7.2 gm/dl (6.4-8.2) Albumin 3.5 gm/dl (3.4-5.0) Globulin 3.7 gm/dl (2.5-4.0) Albumin/Globulin Ratio 0.9 (0.9-2) Laboratory results reviewed by me. Medications Administered Medications (Trade) Dose Ordered Sig/Major Route Start Time Stop Time Status Last Admin Dose Admin Albuterol/ Ipratropium (Duoneb) 3 ml NOW STAT INH 10/16/16 10:29 10/16/16 10:33 DC 10/16/16 11:00 3 ML Ceftriaxone Sodium (Rocephin Inj) 1 gm NOW STAT IV 10/16/16 10:29 10/16/16 10:33 DC 10/16/16 11:00 1 GM Methylprednisolone Sodium Succinate (Solu-Medrol IV) 60 mg NOW STAT IV 10/16/16 12:16 10/16/16 12:17 DC 10/16/16 13:14 60 MG ECG Indication: SOB/dyspnea Rate (beats per minute): 67 Rhythm: other (ventricular pace maker) Findings: other (no dysrhythmia, no obvious ischemia) ED Course 1028: The patient was evaluated in room C1. A complete history and physical exam was performed. 1029: Rocephin Inj 1 gm IV, Duoneb 3 ml INH. 1216: Solu-Medrol 60 mg IV. 1206: Upon reexamination the patient is resting comfortably. I discussed results and treatment plan with the patient. He verbalizes agreement and understanding. The patient will be evaluated for further management. 1220: I discussed the patient's case with Dr. oBnd, [facility] [place] - construction inspector. The patient will be evaluated for further management. Medical Decision Differential diagnosis: pneumonia, bronchitis, exacerbation of COPD, CHF, cardiac ischemia, influenza, anemia, electrolyte imbalance. There is no leukocytosis or concerning anemia. No significant electrolyte abnormality, kidney failure or hepatitis. EKG shows a functioning ventricular pacemaker. Cardiac enzyme testing times one is not consistent with acute cardiac injury. Chest x-ray does not show pneumonia or CHF, there is no pneumothorax. Influenza testing is negative. Blood cultures are pending. The patient received a DuoNeb, IV Solu-Medrol and IV ceftriaxone. He was hypoxic here in the emergency room and required O2 supplementation. With his history of COPD, with the hypoxia, with the shortness of breath, the patient was felt in need of admission/observation. I suspect he has an acute bronchitis with an exacerbation of COPD. I talked with him. I did speak with the case making machine operator. The on-call hospitalist was consulted. Consults Time Called: 1210 Consulting Physician: FORD Ayon - construction inspector Returned Call: 1220 I discussed the patient's case with him. The patient will be evaluated for further management. Impression Primary Impression: Hypoxia Additional Impressions: SOB (shortness of breath) Acute bronchitis COPD exacerbation Scribe Attestation The scribe's documentation has been prepared under my direction and personally reviewed by me in its entirety. I confirm that the note above accurately reflects all work, treatment, procedures, and medical decision making performed by me. Departure Information Dispostion Being Evaluated By Hospitalist Referrals Ammy Cabrera M.D. (PCP) Patient Instructions My [facility] Problem Qualifiers
[2016-10-16] MEDS: HEPARIN SOD 5000 UNIT/0.5 ML CARP SQ SCH (20:41)
[2016-10-16] MEDS: METHYLPREDNISOLONE IV 40 MG in SYRINGE 0 ML IV SCH (20:42)
[2016-10-16] MEDS: GABAPENTIN 300 MG CAP PO SCH (20:45)
[2016-10-16] MEDS: METOPROLOL TARTRATE 50 MG TAB PO SCH (20:45)
[2016-10-16] MEDS ORDERED: TRAZODONE HCL 100 MG TAB PO SCH (21:00)
[2016-10-17 07:00] VITALS: BP 176/85; PULSE 63; TEMP 36.6; O2SAT 97
[2016-10-17 07:35] LABS: BUN/CREATININE RATIO 19.8 (10-20); CALCIUM 8.5 mg/dl (8.5-10.1); CREATININE 2.2 mg/dl (0.60-1.40); POTASSIUM 4.8 mmol/L (3.5-5.1)
--- NOTE | 2016-10-17 07:40 | Progress Note ---
Subjective Date of Service: October 17, 2016. Problem List Medical Problems: (1) Acute bronchitis Status: Acute (2) COPD exacerbation Status: Acute (3) Dehydration Status: Acute (4) Fever Status: Acute (5) Hypoxia Status: Acute (6) Influenza A Status: Acute (7) Knee effusion, left Status: Acute (8) Renal insufficiency Status: Acute (9) SOB (shortness of breath) Status: Acute (10) Vomiting Status: Acute Objective Vital Signs Date Time Temp Pulse Resp B/P Pulse Ox O2 Delivery O2 Flow Rate FiO2 10/17/16 07:00 36.6 63 20 176/85 97 Nasal Cannula 2.0 10/17/16 00:30 Nasal Cannula 2.0 10/16/16 23:40 36.7 68 20 119/72 93 Nasal Cannula 2.0 10/16/16 19:20 63 16 94 Nasal Cannula 2.0 10/16/16 16:00 95 Nasal Cannula 2.0 10/16/16 15:41 36.5 60 18 150/76 95 Nasal Cannula 2.0 10/16/16 15:26 61 16 93 Nasal Cannula 2.0 10/16/16 14:51 36.4 66 16 152/74 96 Nasal Cannula 2.0 10/16/16 14:28 64 22 136/74 93 10/16/16 13:57 95 Room Air 10/16/16 13:43 59 21 95 10/16/16 13:31 138/88 10/16/16 13:17 61 10/16/16 13:13 63 15 94 10/16/16 13:08 60 24 94 10/16/16 13:01 147/84 10/16/16 12:38 62 29 94 10/16/16 12:31 136/88 10/16/16 12:01 139/75 10/16/16 11:38 63 16 88 10/16/16 11:31 139/86 10/16/16 11:08 60 18 96 10/16/16 11:03 134/69 10/16/16 11:01 2 Nasal Cannula 10/16/16 10:54 60 18 89 10/16/16 10:44 126/56 10/16/16 10:26 60 10/16/16 10:13 152/97 10/16/16 10:13 93 Room Air 10/16/16 09:59 36.5 87 22 156/91 93 Room Air Laboratory Results Last 24 Hours Test 10/16/16 10:45 10/16/16 10:55 10/16/16 15:35 10/16/16 15:53 Influenza Type A Antigen Neg for Influ A Influenza Type B Antigen Neg for Influ B White Blood Count 5.52 K/uL 6.45 K/uL Red Blood Count 4.33 M/uL 4.24 M/uL Hemoglobin 13.8 g/dL 13.5 g/dL Hematocrit 40.9 % 40.1 % Mean Corpuscular Volume 94.5 fL 94.6 fL Mean Corpuscular Hemoglobin 31.9 pg 31.8 pg Mean Corpuscular Hemoglobin Concent 33.7 g/dl 33.7 g/dl Platelet Count 143 K/uL 137 K/uL Mean Platelet Volume 12.1 fL 11.9 fL Neutrophils (%) (Auto) 68.7 % Lymphocytes (%) (Auto) 18.3 % Monocytes (%) (Auto) 10.0 % Eosinophils (%) (Auto) 2.4 % Basophils (%) (Auto) 0.2 % Neutrophils # (Auto) 3.80 K/uL Lymphocytes # (Auto) 1.01 K/uL Monocytes # (Auto) 0.55 K/uL Eosinophils # (Auto) 0.13 K/uL Basophils # (Auto) 0.01 K/uL RDW Standard Deviation 50.5 fL 50.2 fL RDW Coefficient of Variation 14.8 % 14.7 % Immature Granulocyte % (Auto) 0.4 % Immature Granulocyte # (Auto) 0.02 K/uL Sodium Level 142 mmol/L Potassium Level 4.5 mmol/L Chloride Level 107 mmol/L Carbon Dioxide Level 27 mmol/L Anion Gap 8.0 mmol/L Blood Urea Nitrogen 33 mg/dl Creatinine 1.80 mg/dl Est Creatinine Clear Calc Drug Dose 51.5 ml/min Estimated GFR () 43.8 Estimated GFR (Non- 37.8 BUN/Creatinine Ratio 18.2 Random Glucose 186 mg/dl Calcium Level 8.7 mg/dl Total Bilirubin 0.6 mg/dl Aspartate Amino Transf (AST/SGOT) 31 U/L Alanine Aminotransferase (ALT/SGPT) 29 U/L Alkaline Phosphatase 113 U/L Troponin I < 0.015 ng/ml Total Protein 7.2 gm/dl Albumin 3.5 gm/dl Globulin 3.7 gm/dl Albumin/Globulin Ratio 0.9 Prothrombin Time 10.8 SECONDS Prothromb Time International Ratio 1.0 Bedside Glucose 169 mg/dl Test 10/16/16 16:45 10/16/16 20:02 10/16/16 23:57 10/17/16 06:45 Bedside Glucose 183 mg/dl 279 mg/dl 224 mg/dl Sodium Level 138 mmol/L Potassium Level 4.8 mmol/L Chloride Level 103 mmol/L Carbon Dioxide Level 26 mmol/L Anion Gap 9.0 mmol/L Blood Urea Nitrogen 44 mg/dl Creatinine 2.20 mg/dl Est Creatinine Clear Calc Drug Dose 42.1 ml/min Estimated GFR () 34.4 Estimated GFR (Non- 29.7 BUN/Creatinine Ratio 19.8 Random Glucose 269 mg/dl Calcium Level 8.5 mg/dl Assessment and Plan 66-year-old male here with acute exacerbation of chronic obstructive pulmonary disease. copd exacerbation, DuoNebs q.i.d. and Solu-Medrol 40 q. 12 hours. We will p.r.n. DuoNebs chronic diastolic heart failure, Lasix and metoprolol, Metoprolol is also rate controlling for his atrial fibrillation. aspirin and his Plavix. There is no discussion of full anticoagulation for this patient and the patient says his [facility] manage that. diabetes,glipizide and on sliding scale insulin. gout. allopurinol. Deep vein thrombosis prevention will be heparin. Anxiety and depression. BuSpar and Paxil, and continue clonazepam p.r.n. This patient is a full code.
[2016-10-17] MEDS ORDERED: HydrALAZINE HCL 20 MG/ML VIAL IV PRN (07:45)
[2016-10-17 07:50] VITALS: PULSE 65; O2SAT 98
[2016-10-17] MEDS: ALBUT/IPRATROP 3MG/0.5MG NEB 3 ML VIAL INH SCH ×2 (07:50→11:23)
[2016-10-17] MEDS ORDERED: CLOPIDOGREL BISULFATE 75 MG TAB PO SCH (08:00)
[2016-10-17] MEDS ORDERED: SPIRONOLACTONE 25 MG TAB PO SCH (08:00)
[2016-10-17] MEDS ORDERED: PANTOprazole SOD 40 MG TAB PO SCH (08:00)
[2016-10-17] MEDS ORDERED: ALLOPURINOL 100 MG TAB PO SCH (08:00)
[2016-10-17] MEDS ORDERED: FUROSEMIDE 40 MG TAB PO SCH (08:00)
[2016-10-17] MEDS ORDERED: CHOLECALCIFEROL 1000 INTER.UNIT TAB PO SCH (08:00)
[2016-10-17] MEDS ORDERED: ASPIRIN 81 MG ECTAB PO SCH (08:00)
[2016-10-17] MEDS: METOPROLOL TARTRATE 50 MG TAB PO SCH (08:10)
[2016-10-17] MEDS: GABAPENTIN 300 MG CAP PO SCH (08:10)
[2016-10-17] MEDS: METHYLPREDNISOLONE IV 40 MG in SYRINGE 0 ML IV SCH (08:17)
[2016-10-17] MEDS: HEPARIN SOD 5000 UNIT/0.5 ML CARP SQ SCH (08:21)
[2016-10-17] MEDS: INSULIN ASPART 100 UNITS/ML 3 ML PEN SC SCH (08:21)
[2016-10-17 08:30] VITALS: BP 149/65
[2016-10-17 09:16] LABS: ESTIMATED AVERAGE GLUCOSE 186 mg/dl; HA1C FLAG Normal (Normal)
[2016-10-17 10:00] VITALS: Ht 172.7 cm; Wt 129.0 kg
[2016-10-17] MEDS ORDERED: IPRASOL4 INH (11:06)
[2016-10-17] MEDS ORDERED: PRED10TA PO (11:06)
--- NOTE | 2016-10-17 11:07 | Discharge Instructions ---
Discharge Instructions Date of Service October 17, 2016. Admission Reason for Admission: Cold - Referred By [facility] Discharge Discharge Diagnosis / Problem: copd exacerbation Discharge Goals Goal(s): Diagnostic testing, Therapeutic intervention Activity Recommendations Activity Limitations: resume your previous activity . Instructions / Follow-Up Instructions / Follow-Up if your morning glucose is more than 200 please take double your usual glipizide dose( 5) if over 300 on two consecutive days call your doctor Current Hospital Diet Patient's current hospital diet: Diabetes Type 2 Diet Discharge Diet Recommended Diet: Diabetes Type 2 Diet Pending Studies Studies pending at discharge: yes List of pending studies: blood cultures Laboratory Results Hemoglobin A1c Test 10/17/16 06:45 Range/Units Estimated Average Glucose 186 mg/dl Hemoglobin A1c 8.1 H 4.5-5.6 % Medical Emergencies . Who to Call and When: Medical Emergencies: If at any time you feel your situation is an emergency, please call 911 immediately. . Non-Emergent Contact Non-Emergency issues call your: Primary Care Provider Call Non-Emergent contact if: temperature is above 101, your pain is unusual for you . . "Provider Documentation" section prepared by Gamaliel Zarco. . VTE Core Measure Inpt VTE Proph given/why not?: Unfractionated heparin SQ
[2016-10-17] MEDS ORDERED: CLON1TAB3 PO (11:10)
[2016-10-17 11:20] VITALS: BP 149/65; PULSE 65; TEMP 36.6; O2SAT 98
[2016-10-17 11:39] VITALS: O2SAT 95
--- NOTE | 2016-10-17 14:02 | Discharge Summary ---
Discharge Summary Date of Service October 17, 2016. Discharge Summary Admission Date: October 16, 2016 at 13:52 Discharge Date: October 17, 2016 Discharge Disposition: Home Principal Diagnosis: copd exacerbation Immunizations: Have You Had Influenza Vaccine: N/A Influenza Vaccine Date: Apr 02, 2010 History of Tetanus Vaccine?: Yes Tetanus Immunization Date: Jun 02, 2001 History of Pneumococcal: Unknown Pneumococcal Date: Mar 29, 2012 History of Hepatitis B Vaccine: Unknown Medication Reconciliation New Medications: Prednisone Tab (Prednisone) 10 Mg Tab 10 MG PO UD, #42 TAB 4 a day x 4 days then 3 a day x 4 days then 2 a day x 4 days then 1 daily Ipratropium-Albuterol (Duoneb) 3 Ml Nebu 3 ML INH QIDR, #120 DOSE Continued Medications: Allopurinol (Zyloprim) 100 Mg Tab 100 MG PO DAILY Aspirin Enteric Coated (Ecotrin Or Generic) 81 Mg Tab 81 MG PO DAILY Atorvastatin (Lipitor) 80 Mg Tab 80 MG PO QPM, TAB Budesonide/Formoterol Fumarate (Symbicort 80/4.5 Inhaler) 120 Puffs/ Aero 1 PUFF INH BID Buspirone Hcl (Buspirone Hcl) 10 Mg Tab 2 TAB PO BID for 30 Days, #120 TAB 2 Refills Cholecalciferol (Vitamin D 1000 Unit) 1,000 Unit Cap 2000 INTER.UNIT PO DAILY Clonazepam (Klonopin) 1 Mg Tab 0.5 MG PO DAILY PRN for Anxiety, #30 (This prescription has been renewed) Clopidogrel (Plavix) 75 Mg Tab 75 MG PO DAILY Cyanocobalamin (B-12) 2,500 Mcg Tab 2500 MCG PO DAILY Ferrous Sulfate (Kp Ferrous Sulfate) 325 Mg Tab 1 TAB PO DAILY for 30 Days, #30 TAB 3 Refills Furosemide (Lasix) 40 Mg Tab 40 MG PO DAILY Furosemide (Lasix) 40 Mg Tab 40 MG PO HS 4XWK, TAB TAKE ADDITIONAL DOSE AT BEDTIME EVERY FRIDAY,FRIDAY,FRIDAY AND FRIDAY. Gabapentin (Neurontin) 300 Mg Cap 300 MG PO TID, 0 Refills Glipizide (Glucotrol) 5 Mg Tab 2.5 MG PO DAILY Loratadine (Claritin) 10 Mg Tab 10 MG PO DAILY Melatonin (Melatonin) 10 Mg Cap 10 MG PO HS Metoprolol Tartrate (Lopressor) (Lopressor) 50 Mg Tab 50 MG PO BID, TAB Nitroglycerin (Nitrostat) 0.3 Mg Tab 0.3 MG UT UD PRN for Chest Pain PLACE ONE TABLET UNDER THE TONGUE EVERY 5 MINUTES FOR UP TO 3 DOSES OVER 15 MINUTES IF NEEDED FOR CHEST PAIN. Ocuvite Preservision (Ocuvite Preservision) 1 Tab Tab 1 TAB PO DAILY, TAB Pantoprazole Sodium (Protonix) 40 Mg Tab 40 MG PO DAILY Paroxetine (Paxil) 40 Mg Tab 40 MG PO QPM Pseudoephedrine-Guaifenesin (Mucinex D) 1 Tab Tab 1 TAB PO BID for 10 Days, #20 TAB Spironolactone (Aldactone) 25 Mg Tab 25 MG PO, TAB Trazodone Hcl (Trazodone) 100 Mg Tab 100 MG PO, TAB Discharge Exam Review of Systems: Constitutional: No chills, No fever Respiratory: No cough, No sputum Cardiovascular: No chest pain, No edema Abdomen: No nausea, No pain Genitourinary - Male: No dysuria, No hematuria Physical Exam: General Appearance: WD/WN, + mild distress Neck: supple, no JVD Respiratory/Chest: chest non-tender, lungs clear, normal breath sounds Cardiovascular: regular rate, rhythm, no murmur Abdomen / GI: normal bowel sounds, non tender, soft Extremities: no pedal edema, normal range of motion Hospital Course 66-year-old male here with acute exacerbation of chronic obstructive pulmonary disease. copd exacerbation, DuoNebs q.i.d. and prednisone taper chronic diastolic heart failure, Lasix and metoprolol, Metoprolol is also rate controlling for his atrial fibrillation. aspirin and his Plavix. There is no discussion of full anticoagulation for this patient and the patient says his [place] doctors manage that, [facility] diabetes,glipizide and if steroids make his glucose elevated he will double the dose and if this does not help he should call his pcp gout. allopurinol. Anxiety and depression. BuSpar and Paxil, and continue clonazepam p.r.n. This patient is a full code. Total Time Spent: Greater than 30 minutes This includes examination of the patient, discharge planning, medication reconciliation, and communication with other providers. Discharge Instructions Please refer to the electronic Patient Visit Report (Discharge Instructions) for additional information.
[2016-10-17] MEDS ORDERED: PAROXETINE 20 MG TAB PO SCH (21:00)
[2016-10-17] MEDS ORDERED: ATORVASTATIN 40 MG TAB PO SCH (21:00)
[2016-10-18] MEDS ORDERED: FUROSEMIDE 40 MG TAB PO SCH (09:00)
[2017-01-23] MEDS ORDERED: SYMIN/8045 INH (05:47)
[2017-01-23] MEDS ORDERED: TRAZ100T29 PO (07:42)
[2017-01-23] MEDS ORDERED: SPIR25TA PO (07:42)
[2017-01-23] MEDS ORDERED: PXL/40 PO (10:36)
[2017-01-23] MEDS ORDERED: FRS/40 PO (13:45)
[2017-01-23] MEDS ORDERED: ASPI81TA21 PO (14:21)
[2017-01-23] MEDS ORDERED: MELA1CAP9 PO (14:53)
[2017-01-23] MEDS ORDERED: CYAN1TAB17 PO (15:50)
[2017-01-23] MEDS ORDERED: GLIP5TAB11 PO (15:50)
[2017-01-23] MEDS ORDERED: CHOL100027 PO (16:30)
[2017-01-23] MEDS ORDERED: ALLO100T PO (16:30)
[2017-01-23] MEDS ORDERED: PANT40TA PO (16:30)
[2017-01-23] MEDS ORDERED: MULT-190 PO (17:01)
[2017-01-23] MEDS ORDERED: BUSP-8 PO (17:01)
[2017-01-23] MEDS ORDERED: GABA-113 PO (17:51)
[2017-01-23] MEDS ORDERED: CLOP1TAB15 PO (17:51)
== END 2016-10-17 11:47 | disposition home or self-care (01) | DRG 191 ==
LOC: ENRESERVTM → ENRESERVDT → C.EDB 09:57 → C.4E 13:52
PROVIDERS: ADMIT Internal Medicine; ATTEND Internal Medicine
DX: J44.1 Chronic obstructive pulmonary disease with (acute) exacerbation (principal); I50.32 Chronic diastolic (congestive) heart failure; Z68.41 Body mass index [BMI] 40.0-44.9, adult; I25.10 Atherosclerotic heart disease of native coronary artery without angina pectoris; I48.91 Unspecified atrial fibrillation; E11.9 Type 2 diabetes mellitus without complications; E78.5 Hyperlipidemia, unspecified; E66.01 Morbid (severe) obesity due to excess calories; F41.9 Anxiety disorder, unspecified; F32.9 Major depressive disorder, single episode, unspecified; M10.9 Gout, unspecified; Z79.84 Long term (current) use of oral hypoglycemic drugs; Z95.0 Presence of cardiac pacemaker; Z95.5 Presence of coronary angioplasty implant and graft; Z79.82 Long term (current) use of aspirin; Z79.02 Long term (current) use of antithrombotics/antiplatelets; Z87.891 Personal history of nicotine dependence; Z82.49 Family history of ischemic heart disease and other diseases of the circulatory system; Z83.3 Family history of diabetes mellitus; Z87.442 Personal history of urinary calculi; Z85.51 Personal history of malignant neoplasm of bladder; Z90.6 Acquired absence of other parts of urinary tract

== ENCOUNTER 2016-12-05 08:48 | Emergency (ER) | payer OTHER ==
[~2016-12-05] VITALS: Ht 172.7 cm; Wt 129.4 kg
[~2016-12-05 08:48] MED LIST changes: -COLC0.6T54 PO; +IPRASOL4 INH; -NF406 PO; +PRED10TA PO; +PSEU60TA80 PO
[2016-12-05 08:55] VITALS: TEMP 36.5
[2016-12-05] MEDS ORDERED: METHYLPREDNISOLONE 125 MG VIAL IV STA (09:06)
[2016-12-05] MEDS ORDERED: ALBUT/IPRATROP 3MG/0.5MG NEB 3 ML VIAL INH ONE (09:15)
[2016-12-05] MEDS ORDERED: SODIUM CHLORIDE 0.65% NA SOLN 45 ML (OCEAN) ONE (09:15)
[2016-12-05] MEDS ORDERED: AMOXICILLIN/CLAVULANATE TAB 875 MG TAB PO ONE (09:15)
--- NOTE | 2016-12-05 09:25 | EMERGENCY ROOM VISIT NOTE ---
History Report prepared by Raysaibmichael: Susana Wooten Under the Supervision of: Dr. Julián Alberts M.D. First contact with patient: 09:02 Chief Complaint: CONGESTION Stated Complaint: STUFFY HEAD, WHEEZING Nursing Triage Summary: Pt c/o nasal congestion x 3 days and couldn't breathe through his nose last night. [facility]. "I was wheezing too" Hx COPD History of Present Illness The patient is a 66 year old male who presents to the Emergency Room with complaints of persistent shortness of breath starting 3 days ago. The patient also complains of sinus congestion. Last night, he could not breathe through his nose. He also started having wheezing and a productive cough. He reports a headache but denies it as the worst headache of his life. He has a history of COPD. He denies any history of sinus infections. He denies any fevers, chills, or any other complaints. Source of History: patient Onset: 3 days ago Position: other (global) Quality: other (shortness of breath) Timing: other (persistent) Associated Symptoms: + headache, + cough, No fevers, No chills Review of Systems See HPI for pertinent positives & negatives. A total of 10 systems reviewed and were otherwise negative. 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 (13) urosepsis (14) UTI (urinary tract infection) Surgical Problems: (1) History of urostomy Family History FH: coronary artery disease Social History Smoking Status: Former Smoker Alcohol Use: none Drug Use: none Marital Status: Housing Status: lives with family Occupation Status: retired Current/Historical Medications Scheduled Allopurinol (Zyloprim), 100 MG PO DAILY Amoxicillin & Pot Clavulanate (Augmentin 875-125 mg), 1 TAB PO BID Aspirin Enteric Coated (Ecotrin Or Generic), 81 MG PO DAILY Atorvastatin (Lipitor), 80 MG PO QPM Budesonide/Formoterol Fumarate (Symbicort 80/4.5 Inhaler), 1 PUFF INH BID Buspirone Hcl (Buspirone Hcl), 2 TAB PO BID Cholecalciferol (Vitamin D 1000 Unit), 2,000 INTER.UNIT PO DAILY Clopidogrel (Plavix), 75 MG PO DAILY Cyanocobalamin (B-12), 2,500 MCG PO DAILY Ferrous Sulfate (Kp Ferrous Sulfate), 1 TAB PO DAILY Furosemide (Lasix), 40 MG PO DAILY Furosemide (Lasix), 40 MG PO HS 4XWK Gabapentin (Neurontin), 300 MG PO TID Glipizide (Glucotrol), 2.5 MG PO DAILY Ipratropium-Albuterol (Duoneb), 3 ML INH QIDR Loratadine (Claritin), 10 MG PO DAILY Melatonin (Melatonin), 10 MG PO HS Metoprolol Tartrate (Lopressor) (Lopressor), 50 MG PO BID Ocuvite Preservision (Ocuvite Preservision), 1 TAB PO DAILY Pantoprazole Sodium (Protonix), 40 MG PO DAILY Paroxetine (Paxil), 40 MG PO QPM Prednisone (Prednisone Tab), 0 PO DAILY Prednisone Tab (Prednisone), 10 MG PO UD Pseudoephedrine-Guaifenesin (Mucinex D), 1 TAB PO BID Scheduled PRN Clonazepam (Klonopin), 0.5 MG PO DAILY PRN for Anxiety Nitroglycerin (Nitrostat), 0.3 MG UT UD PRN for Chest Pain Miscellaneous Medications Spironolactone (Aldactone), 25 MG PO Trazodone Hcl (Trazodone), 100 MG PO Allergies Coded Allergies: Codeine (Verified Adverse Reaction, Mild, "trips me out", 12/05/16) CONFUSION Promethazine (Verified Adverse Reaction, Unknown, UNCONTROLLED MUSCLE MOVEMENTS, 12/05/16) Physical Exam Vital Signs Date Time Temp Pulse Resp B/P (MAP) Pulse Ox O2 Delivery O2 Flow Rate FiO2 12/05/16 10:36 62 22 146/70 99 12/05/16 09:53 60 27 98 12/05/16 09:48 60 17 98 12/05/16 09:43 62 21 99 12/05/16 09:38 60 22 99 12/05/16 09:33 62 25 99 12/05/16 09:30 61 12/05/16 09:28 99 Mask 6.0 12/05/16 09:27 98 Mask 6.0 12/05/16 09:26 86 18 97 Room Air 12/05/16 08:58 94 Room Air 12/05/16 08:55 36.5 82 22 148/77 94 Room Air Physical Exam GENERAL: Patient is a healthy-appearing well-nourished [] HEAD: Normocephalic atraumatic EYES: Ocular movements intact pupils equal and react to light OROPHARYNX mucous membranes are moist no exudates present no erythema or edema present NECK: Supple no nuchal rigidity. No evidence of meningitis or encephalitis on exam CHEST: Good equal expansion LUNGS: Bilateral wheezing present CARDIAC: Normal S1 and S2 ABDOMEN: Soft nontender no guarding BACK: No CVA tenderness EXTREMITIES: No pain upon palpation normal muscle strength in all groups no clubbing cyanosis or edema NEURO: Patient is following commands and answering questions appropriately. Alert and oriented x3 Cranial Nerves 2-12 grossly intact Medical Decision & Procedures ER Provider Diagnostic Interpretation: X-ray results as stated below per interpretation by me and the radiologist: CHEST ONE VIEW PORTABLE HISTORY:66 yearsMalePt c/o SOB COMPARISON: Chest radiograph 10/16/2016. TECHNIQUE: Portable upright AP view of the chest. FINDINGS: There is unchanged mild cardiomegaly. Left sided dual lead pacer appears unchanged. There is atherosclerosis of the aorta. There is no pneumothorax, pleural effusion, focal airspace consolidation or overt pulmonary edema. The bones appear to be grossly intact. IMPRESSION: Mild cardiomegaly without overt pulmonary edema. The above report was generated using voice recognition software. It may contain grammatical, syntax or spelling errors. Electronically signed by: Theo Noel 12/05/2016 9:30 AM Dictated Date/Time: 12/05/2016 9:29 AM Laboratory Results 12/05/16 09:15 Red Blood Count 4.18, Mean Corpuscular Volume 93.5, Mean Corpuscular Hemoglobin 32.5, Mean Corpuscular Hemoglobin Concent 34.8, Mean Platelet Volume 12.6, Neutrophils (%) (Auto) 77.3, Lymphocytes (%) (Auto) 11.6, Monocytes (%) (Auto) 9.5, Eosinophils (%) (Auto) 1.2, Basophils (%) (Auto) 0.3, Neutrophils # (Auto) 5.87, Lymphocytes # (Auto) 0.88, Monocytes # (Auto) 0.72, Eosinophils # (Auto) 0.09, Basophils # (Auto) 0.02 12/05/16 09:15 Test 12/05/16 09:15 White Blood Count 7.59 K/uL (4.8-10.8) Red Blood Count 4.18 M/uL (4.7-6.1) Hemoglobin 13.6 g/dL (14.0-18.0) Hematocrit 39.1 % (42-52) Mean Corpuscular Volume 93.5 fL (80-100) Mean Corpuscular Hemoglobin 32.5 pg (25-34) Mean Corpuscular Hemoglobin Concent 34.8 g/dl (32-36) Platelet Count 140 K/uL (130-400) Mean Platelet Volume 12.6 fL (7.4-10.4) Neutrophils (%) (Auto) 77.3 % Lymphocytes (%) (Auto) 11.6 % Monocytes (%) (Auto) 9.5 % Eosinophils (%) (Auto) 1.2 % Basophils (%) (Auto) 0.3 % Neutrophils # (Auto) 5.87 K/uL (1.4-6.5) Lymphocytes # (Auto) 0.88 K/uL (1.2-3.4) Monocytes # (Auto) 0.72 K/uL (0.11-0.59) Eosinophils # (Auto) 0.09 K/uL (0-0.5) Basophils # (Auto) 0.02 K/uL (0-0.2) RDW Standard Deviation 49.8 fL (36.4-46.3) RDW Coefficient of Variation 14.6 % (11.5-14.5) Immature Granulocyte % (Auto) 0.1 % Immature Granulocyte # (Auto) 0.01 K/uL (0.00-0.02) Anion Gap 7.0 mmol/L (3-11) Est Creatinine Clear Calc Drug Dose 48.8 ml/min Estimated GFR () 41.1 Estimated GFR (Non- 35.4 BUN/Creatinine Ratio 11.6 (10-20) Calcium Level 8.5 mg/dl (8.5-10.1) Total Bilirubin 0.7 mg/dl (0.2-1) Aspartate Amino Transf (AST/SGOT) 16 U/L (15-37) Alanine Aminotransferase (ALT/SGPT) 21 U/L (12-78) Alkaline Phosphatase 116 U/L (45-117) Total Protein 7.2 gm/dl (6.4-8.2) Albumin 3.6 gm/dl (3.4-5.0) Globulin 3.6 gm/dl (2.5-4.0) Albumin/Globulin Ratio 1.0 (0.9-2) Labs reviewed by ED physician. Medications Administered Medications (Trade) Dose Ordered Sig/Major Route Start Time Stop Time Status Last Admin Dose Admin Albuterol/ Ipratropium (Duoneb) 12 ml ONE ONCE INH 12/05/16 09:15 12/05/16 09:16 DC 12/05/16 09:26 12 ML Methylprednisolone Sodium Succinate (Solu-Medrol IV) 60 mg NOW STAT IV 12/05/16 09:06 12/05/16 09:09 DC 12/05/16 09:26 60 MG Amoxicillin/ Clavulanate Potassium (Augmentin Tab) 875 mg ONE ONCE PO 12/05/16 09:15 12/05/16 09:16 DC 12/05/16 09:21 875 MG Sodium Chloride ([place]ison Nasal [place]) 2 sprays NOW ONCE NA 12/05/16 09:15 12/05/16 09:16 DC 12/05/16 09:22 2 SPRAYS ECG Indication: SOB/dyspnea Rate (beats per minute): 62 Rhythm: other (Paced rhythm) Findings: no acute ischemic change, no ectopy ED Course 901: Past medical records reviewed. The patient was evaluated in room B12B. A complete history and physical examination was performed. 0906: Solu-Medrol IV 60 mg IV 0915: Sodium Chloride 2 sprays NA, Augmentin Tab 875 mg PO, DuoNeb 12 ml INH 1000: Upon reexamination the patient is feeling better. I discussed results and treatment plan with the patient. He verbalizes agreement and understanding. The patient is ready for discharge. Medical Decision Medication Reconciliation: I attest that I have personally reviewed the patient' s current medication list Blood Pressure Screening: Patient was found to have an elevated blood pressure and was referred to their primary care doctor for recheck and further treatment Differential diagnosis: Etiologies such as infections, reactive airway disease, pneumonia, pneumothorax , COPD, CHF, cardiac ischemia, pulmonary embolism, musculoskeletal, gastrointestinal, as well as others were entertained. This is a 66-year-old male who presents emergency department complaining of sinus congestion. He also feels that he is wheezing however he is not hypoxic on room air. For this reason the patient was given an hour-long breathing treatment. I will start the patient on Augmentin for presumed sinus infection. The patient has no evidence of meningitis encephalitis on examination however I stressed the need to return to the emergency department the patient develops severe headache as well as severe neck pain. His chest x-ray does not show any acute process. Patient was in agreement with the treatment plan. Impression Primary Impression: Sinusitis Scribe Attestation The scribe's documentation has been prepared under my direction and personally reviewed by me in its entirety. I confirm that the note above accurately reflects all work, treatment, procedures, and medical decision making performed by me. Departure Information Dispostion Home / Self-Care Prescriptions Prednisone (Prednisone Tab) 20 Mg Tab 0 PO DAILY, #7 TAB 2 TABS DAILY FOR 2 DAYS, THEN 1 TAB DAILY FOR 2 DAYS, THEN 1/2 TAB DAILY FOR 2 DAYS. Prov: Julián Alberts MD 12/05/16 Amoxicillin & Pot Clavulanate (Augmentin 875-125 mg) 1 Tab Tab 1 TAB PO BID for 10 Days, #20 TAB Prov: Julián Alberts MD 12/05/16 Referrals Ammy Cabrera M.D. (PCP) Forms HOME CARE DOCUMENTATION FORM, IMPORTANT VISIT INFORMATION Patient Instructions ED Sinusitis Abx Tx, Hypertension Dc, My [facility], Sinusitis Acute, Sinusitis Causes, Sinusitis Prevent, Sinusitis Self Care Additional Instructions You were found to have an elevated blood pressure today (>120 sytolic or >90 diastolic). Per medicare guidelines, you need to follow up with this blood pressure screening with your Primary Care Physician (PCP). For a new PCP call [phone]. Return if you develop severe headache and neck pain You have been examined and treated today on an emergency basis only. This is not a substitute for, or an effort to provide, complete comprehensive medical care. It is impossible to recognize and treat all injuries or illnesses in a single emergency department visit. It is therefore important that you follow up closely with Dr Cabrera. Call as soon as possible for an appointment. Thank you for your time and consideration. I look forward to speaking with you again soon. Please don't hesitate to call us if you have any questions. Problem Qualifiers Primary Impression: Sinusitis Sinusitis location: frontal Chronicity: acute Recurrence: not specified as recurrent Qualified Codes: J01.10 - Acute frontal sinusitis, unspecified
[2016-12-05 09:26] VITALS: PULSE 86; O2SAT 97
[2016-12-05 09:28] VITALS: O2SAT 99
[2016-12-05 09:29] VITALS: Ht 172.7 cm; Wt 129.4 kg
[2016-12-05 09:30] LABS: BASO % 0.3 %; BASO ABS # 0.02 K/uL (0-0.2); COMPLETE YES; EOS % 1.2 %; HEMATOCRIT 39.1 % (42-52); IG% 0.1 %; LYMPH % 11.6 %; LYMPH ABS # 0.88 K/uL (1.2-3.4); MEAN CELL VOLUME 93.5 fL (80-100); MEAN CORPUSCULAR HEMOGLOBIN 32.5 pg (25-34); MEAN CORPUSCULAR HGB CONC 34.8 g/dl (32-36); MEAN PLATELET VOLUME 12.6 fL (7.4-10.4); MONO % 9.5 %; NEUT % 77.3 %; PLATELET COUNT 140 K/uL (130-400); RED BLOOD COUNT 4.18 M/uL (4.7-6.1); WHITE BLOOD COUNT 7.59 K/uL (4.8-10.8)
--- NOTE | 2016-12-05 09:32 | DIAGNOSTIC IMAGING REPORT ---
CHEST ONE VIEW PORTABLE HISTORY:66 yearsMalePt c/o SOB COMPARISON: Chest radiograph 10/16/2016. TECHNIQUE: Portable upright AP view of the chest. FINDINGS: There is unchanged mild cardiomegaly. Left sided dual lead pacer appears unchanged. There is atherosclerosis of the aorta. There is no pneumothorax, pleural effusion, focal airspace consolidation or overt pulmonary edema. The bones appear to be grossly intact. IMPRESSION: Mild cardiomegaly without overt pulmonary edema. The above report was generated using voice recognition software. It may contain grammatical, syntax or spelling errors. Electronically signed by: Theo Noel 12/05/2016 9:30 AM Dictated Date/Time: 12/05/2016 9:29 AM
[2016-12-05 09:52] LABS: BUN/CREATININE RATIO 11.6 (10-20); CALCIUM 8.5 mg/dl (8.5-10.1); CREATININE 1.9 mg/dl (0.60-1.40)
[2016-12-05] MEDS ORDERED: PRED20TA2 PO (10:11)
[2016-12-05] MEDS ORDERED: AMOX875T PO (10:11)
[2016-12-05 10:36] VITALS: BP 146/70; PULSE 62; O2SAT 99
[2017-01-23] MEDS ORDERED: SYMIN/8045 INH (05:47)
[2017-01-23] MEDS ORDERED: SPIR25TA PO (07:42)
[2017-01-23] MEDS ORDERED: TRAZ100T29 PO (07:42)
[2017-01-23] MEDS ORDERED: PXL/40 PO (10:36)
[2017-01-23] MEDS ORDERED: FRS/40 PO (13:45)
[2017-01-23] MEDS ORDERED: ASPI81TA21 PO (14:21)
[2017-01-23] MEDS ORDERED: MELA1CAP9 PO (14:53)
[2017-01-23] MEDS ORDERED: CYAN1TAB17 PO (15:50)
[2017-01-23] MEDS ORDERED: GLIP5TAB11 PO (15:50)
[2017-01-23] MEDS ORDERED: PANT40TA PO (16:30)
[2017-01-23] MEDS ORDERED: ALLO100T PO (16:30)
[2017-01-23] MEDS ORDERED: CHOL100027 PO (16:30)
[2017-01-23] MEDS ORDERED: BUSP-8 PO (17:01)
[2017-01-23] MEDS ORDERED: MULT-190 PO (17:01)
[2017-01-23] MEDS ORDERED: GABA-113 PO (17:51)
[2017-01-23] MEDS ORDERED: CLOP1TAB15 PO (17:51)
== END 2016-12-05 10:37 | disposition home or self-care (01) ==
LOC: C.EDB 08:50
DX: J32.9 Chronic sinusitis, unspecified (principal); J44.9 Chronic obstructive pulmonary disease, unspecified; I48.91 Unspecified atrial fibrillation; I12.9 Hypertensive chronic kidney disease with stage 1 through stage 4 chronic kidney disease, or unspecified chronic kidney disease; N18.3 Chronic kidney disease, stage 3 (moderate); E11.9 Type 2 diabetes mellitus without complications; E78.5 Hyperlipidemia, unspecified; I50.32 Chronic diastolic (congestive) heart failure; Z85.51 Personal history of malignant neoplasm of bladder; Z87.440 Personal history of urinary (tract) infections; Z87.442 Personal history of urinary calculi; Z98.890 Other specified postprocedural states; Z79.82 Long term (current) use of aspirin; Z79.899 Other long term (current) drug therapy; Z87.891 Personal history of nicotine dependence; Z88.5 Allergy status to narcotic agent; Z88.8 Allergy status to other drugs, medicaments and biological substances

== ENCOUNTER → 2016-12-10 | Outpatient (CLI) | payer OTHER ==
[~2016-12-10] MED LIST changes: +ALLO100T PO; +AMOX875T PO; +ASPI81TA21 PO; +ATOR-26 PO; +BUSP-8 PO; +CHOL100027 PO; +CLOP1TAB15 PO; +CLR10 PO; +CYAN1TAB17 PO; +FRS/40 PO; +GABA-113 PO; +GLIP5TAB11 PO; +MAGN400C2 PO; +MELA1CAP9 PO; +METO50TA16 PO; +MULT-190 PO; +NTRSL3 UT; +PANT40TA PO; +PRED20TA2 PO; +PXL/40 PO; +SPIR25TA PO; +SYMIN/8045 INH; +TRAZ100T29 PO
--- NOTE | 2016-12-11 07:33 | SPLIT NIGHT TECHNICIAN REPORT ---
[facility] Split Night Polysomnogram - Canine Enforcement Officer Report Study date: 12/10/2016 Referring Physician: Ammy Cabrera M.D. Name: ARIELLA SAMPSON Canine Enforcement Officer: HAYLEY Llamas. Date of : 1950 Height: 66 years, Height 5' 8" Sex: Male Weight: 264 lbs Age: 66 BMI: Medications: 40.14 Allopurinol, Aspirin, Atorvastatin, Budesonide/Formoter, Buspirone, Clopdogrel, Furosemide, Glipizide, Loratadine, Metoprolol Tartrate, Pantoprazole, Paroxetine, Spironolactone, Trazodone Patient History 66 yr. old male here for a possible split night sleep study. Patient is currently on Auto PAP and his AHI if elevated. Patients [place] Sleepiness Scale Score is 12/24. Parameters Monitored NPSG: E1-M2, E2-M1, Fp1-M2, Fp2-M1, F3-M2, F4-M2, F4-M1, C3-M2, C4-M2, C4-M1, O1-M2, O2-M2, O2-M1, T3-M2, T4-M1, P3-M2, P4-M1, CHIN1, CHIN2, HR, EKG, Legs, PFLOW, SNOR, FLOW, CFLOW, Tidal Volume, THOR, ABDO, SpO2, PLTH, CPRESS, ETCO2 Wave, ETCO2, pH SLEEP SUMMARY DATA DIAGNOSTIC TREATMENT Lights Out: 8:03:41 PM 10:41:41 PM Lights On: 10:36:41 PM 5:27:11 AM Total Recording Time (TRT): 153.0 min. 406.5 min. Total Sleep Time (TST): 127.5 min. 372.0 min. NREM Time: 127.5 min. 274.0 min. REM Time: 0.0 min. 98.0 min. Sleep Period Time (SPT): 133.5 min. 405.5 min. Sleep Efficiency (SE): 83 % 92 % Sleep Latency: 19.5 min. 0.0 min. Arousal Index: 4.2 3.1 PAP Treatment Levels: 4, 6, 8, 9, 10, 11, 16/11, 17/11, 17/12, 18/12, 19/12, 20/12, 21/13 * Optimal Pressure(s) SLEEP STAGING DATA DIAGNOSTIC TREATMENT Duration (min) TST % Duration (min) TST % Stage Wake: 25.5 min. -- 33.5 min. -- WASO: 6.0 min. -- 33.5 min. -- NREM: 127.5 min. 100 % 274.0 min. 74 % Stage N1: 7.5 min. 6 % 19.0 min. 5 % Stage N2: 33.5 min. 26 % 138.0 min. 37 % Stage N3: 86.5 min. 68 % 117.0 min. 31 % REM: 0.0 min. 0 % 98.0 min. 26 % POSITIONAL DATA Event Count Index Event Count Index Supine: N/A N/A 201 63.7 Supine NREM: N/A N/A 170 72.8 Supine REM: N/A N/A 31 38 Non-Supine: 34 16.0 56 18.4 Non-Supine NREM: 34 16.0 52 23.3 Non-Supine REM: N/A N/A 4 4.9 AROUSAL SUMMARY DATA: Event Count Index Event Count Index Apnea Arousals: 0 2.8 2 7.9 Hypopnea Arousals: 4 1.9 5 0.8 Snore Arousals: 1 0.5 2 0.3 PLM Arousals: 3 1.4 3 0.5 Non-Specific Arousals: 0 0.0 4 0.6 Total Arousals: 9 4.2 19 3.1 MYOCLONUS (PLM) Event Count Index Event Count Index PLM: 173 81.4 133 21.5 PLM AROUSAL: 3 1.4 3 0.5 PLM W/O AROUSAL 173 81.4 130 21.0 PLM W/RESP EVENT 2 0.0 3 0.0 MYOCLONUS (PLM) Event Count Index Event Count Index LM: 0 10.4 62 10.0 LM AROUSAL: 0 0.0 7 1.1 LM W/O AROUSAL LM W/RESP EVENT LM NON SPECIFIC 186 87.5 175 28.2 HEART RATE DATA DIAGNOSTIC TREATMENT Sleep (bpm): 61 61 REM (bpm): N/A 90 NREM (bpm): 89 91 Tachycardia Count: 0 0 Tachycardia Duration: 0.00 0 Bradycardia Count: 0 0 Bradycardia Duration: 0.00 0 DIAGNOSTIC PORTION TREATMENT PORTION RESPIRATORY DATA Event Count Index Event Count Index AHI: -- 16.0 -- 41.5 RDI: -- 16.0 -- 41 Obstructive Apnea: 1 0.5 0 0.0 Central Apnea: 5 2.4 49 7.9 Mixed Apnea: 0 0.0 0 0.0 Hypopnea: 28 13.2 208 33.5 RERA: 0 0.0 0 0.0 Total Apneas: 6 2.8 49 7.9 RESPIRATORY DATA REM NREM SLEEP REM NREM SLEEP Supine Position: Obstructive Apneas: N/A N/A N/A 0 0 0 Central Apneas: N/A N/A N/A 0 43 43 Mixed Apneas: N/A N/A N/A 0 0 0 Hypopneas: N/A N/A N/A 31 127 158 RERA N/A N/A N/A 0 0 0 Total Supine Events: N/A N/A N/A 31 170 201 Supine AHI: N/A N/A N/A 38 72.8 63.7 Supine RDI: N/A N/A N/A 37.8 72.8 63.7 REM NREM SLEEP REM NREM SLEEP Non-Supine Position: Obstructive Apneas: N/A 1 1 0 0 0 Central Apneas: N/A 5 5 0 6 6 Mixed Apneas: N/A 0 0 0 0 0 Hypopneas: N/A 28 28 4 46 50 RERA N/A 0 0 0 0 0 Total Supine Events: N/A 34 34 4 52 56 Supine AHI: N/A 16.0 16.0 4.9 23.3 18.4 Supine RDI: N/A 16.0 16.0 4.9 23.3 18.4 OXYGEN DESTAURATION DATA: Event Count Index Event Count Index REM Desaturations: N/A N/A 47 28.8 NREM Desaturations: 44 20.7 237 51.9 SNORE DATA DIAGNOSTIC TREATMENT Snore Time: 10.7 10:41:41 PM Snore TST%: 3 2 Snore Arousal Count: 1 2 Snore Arousal Index: 0.5 0.3 Desaturation Event Summary: Minimum %SpO2 Event Count Mean/Min/Max Duration(sec.) Desaturation Index % Time In Bed > 90 360 22.9 / 6.5 / 57.0 83.6 46.3 86 - 90 105 20.3 / 8.5 / 60.0 21.7 52.0 81 - 85 0 N/A 0.0 1.6 76 - 80 0 N/A 0.0 0.1 71 - 75 0 N/A 0.0 0.0 66 - 70 0 N/A 0.0 0.0 61 - 65 0 N/A 0.0 0.0 56 - 60 0 N/A 0.0 0.0 51 - 55 0 N/A 0.0 0.0 < 50 0 N/A 0.0 0.0 OXYGEN SATURATION DATA DIAGNOSTIC TREATMENT SpO2 Mean Sleep: 89 % 91 % SpO2 Mean REM: N/A % 90 % SpO2 Mean NREM: 89 % 91 % SpO2 Minimum Sleep: 84 % 75 % SpO2 Minimum REM: N/A % 83 % SpO2 Minimum NREM: 84 % 75 % Time Below 90% (TST): 82.7 102.0 Time Below 88% (TST): 14.3 34.1 Total REM NREM Awake <50% 0.0 min. 0.0 min. 0.0 min. 0.0 min. 51 - 60% 0.0 min. 0.0 min. 0.0 min. 0.0 min. 61 - 70% 0.0 min. 0.0 min. 0.0 min. 0.0 min. 71 - 80% 0.5 min. 0.0 min. 0.5 min. 0.0 min. 81 - 90% 299.0 min. 57.4 min. 214.7 min. 26.9 min. 91 - 100% 258.3 min. 40.6 min. 186.3 min. 31.4 min. Average 90 90 90 91 Minimum SpO2 75 83 75 80 Desaturation Event Index 40.0 28.8 42.0 46.8 # Desat. Events below 89% 327 42 249 36 Time(%) with Saturation below 89% 20.6 3.1 15.4 2.1 Time(min.) with Saturation below 89% 115.1 17.5 86.1 11.6 Recording Canine Enforcement Officer Comments: Mr. Sampson slept in the right and supine positions with the head of bed elevated. Cardiac arrhythmia noted. No PLMs noted. No bruxism noted. Snoring was noted and scored as a 2 on a scale of 0 through 5. (0=no snoring, 5=snoring loud enough to be heard through a closed door or down the ray way) At 10: 41 pm Mr. Sampson met specific Split-Night criteria during the diagnostic portion of this study. CPAP was initiated at +4 CMH2O room air and up-titrated to a level of +11 CMH2O Cflex , at this pressure patient was having constant centrals and hypopneas and he was switched to Bi-PAP. PAP initiated at an IPAP of +16 CMH2O and an EPAP of +11 CMH2O up-titrated to an a level of: IPAP +21 CMH2O, EPAP 13 CMH20 BiFlex 2 with a rate 012 BPM. Patient brought his own nasal pillows, but was switched to a nasal mask ( Large Eson 2) and the leak improved, he stated he could not tolerate a full face mask due to claustrophobia Mr. Sampson did not wake to use the restroom during the night. Mr. Sampson stated, "(Example) I did not sleep as well as I do when I am in my own bed. The final report will be interpreted and signed by a sleep physician. The completed physician report will then be placed in the patient medical record. Therapy Event: Therapy (cm H20) 0 4 6 8 9 10 11 Total Time at Pressure (min.) 153.0 5.9 10.7 67.4 64.2 53.1 40.6 TST at Pressure (min.) 127.5 5.9 10.7 65.9 62.7 49.1 23.6 # Periods 1 1 1 1 1 1 1 Sleep Onset (min.) 19.5 0.0 0.0 0.0 0.0 0.0 0.0 REM Onset (min.) N/A N/A N/A 18.3 N/A 17.7 N/A Sleep Efficiency % 83 100 100 97 97 92 58 Wakefulness (%) 16.7 0.0 0.0 2.2 2.3 7.5 41.9 Wakefulness (min.) 25.5 0.0 0.0 1.5 1.5 4.0 17.0 NREM 1 (%) 4.9 8.4 0.0 3.0 1.6 5.4 13.9 NREM 1 (min.) 7.5 0.5 0.0 2.0 1.0 2.9 5.6 NREM 2 (%) 21.9 91.6 47.1 42.3 9.3 2.8 38.1 NREM 2 (min.) 33.5 5.4 5.1 28.5 6.0 1.5 15.4 NREM 3 (%) 56.5 0.0 52.9 15.4 86.8 28.7 6.2 NREM 3 (min.) 86.5 0.0 5.7 10.4 55.7 15.2 2.5 REM (%) 0.0 0.0 0.0 37.1 0.0 55.6 0.0 REM (min.) 0.0 0.0 0.0 25.0 0.0 29.5 0.0 # Arousals 9 0 0 4 1 3 2 Arousal Index 4.2 0.0 0.0 3.6 1.0 3.7 5.1 # Snore 600 16 19 27 4 2 12 Snore Index 282.4 161.6 106.1 24.6 3.8 2.4 30.6 AHI 16.0 90.9 89.4 30.1 23.0 8.6 71.3 AHI Supine N/A 90.9 89.4 72.5 N/A 25.4 71.3 AHI Non-Supine 16.0 N/A N/A 17.7 23.0 5.7 N/A NREM AHI 16.0 90.9 89.4 45.5 23.0 6.1 71.3 REM AHI N/A N/A N/A 4.8 N/A 10.2 N/A RDI 16.0 90.9 89.4 30.1 23.0 8.6 71.3 # Obstructive 1 0 0 0 0 0 0 # Central Ap 5 0 1 3 5 0 15 # Mixed 0 0 0 0 0 0 0 # Hypopneas 28 9 15 30 19 7 13 RERAS 0 0 0 0 0 0 0 Total Respiratory Events 34 9 16 33 24 7 28 Time Below SpO2 89.00% (min.) 41.9 2.8 4.2 7.5 2.2 4.6 4.1 Mean NREM SpO2 (%) 89 88 89 90 91 91 91 Mean REM SpO2 (%) N/A N/A N/A 91 N/A 90 N/A Mean Sleep SpO2 (%) 89 88 89 90 91 90 91 Min NREM SpO2 (%) 84 82 83 82 86 83 80 Min REM SpO2 (%) N/A N/A N/A 88 N/A 83 N/A Position Supine (min.) 0.0 5.9 10.7 14.9 0.0 7.1 23.6 Position Non-supine (min.) 127.5 0.0 0.0 51.0 62.7 42.0 0.0 LM Index Sleep 91.8 10.1 39.1 24.6 98.5 26.9 22.9 LM Index NREM 91.8 10.1 39.1 32.3 98.5 27.6 22.9 LM Index REM N/A N/A N/A 12.0 N/A 26.4 N/A Mean Heart Rate (bpm) 61 61 60 61 61 62 62 Min Heart Rate (bpm) 60 60 60 59 58 59 59 Therapy (cm H20) 16 17/11 17/12 18/12 19/12 /12 /13 Total Time at Pressure (min.) 15.3 26.9 29.7 31.3 11.8 14.8 33.7 TST at Pressure (min.) 15.3 22.9 29.2 30.3 10.8 13.3 32.2 # Periods 1 1 1 1 1 1 1 Sleep Onset (min.) 0.0 0.0 0.0 0.0 0.0 0.0 0.0 REM Onset (min.) N/A N/A 23.4 0.0 0.0 0.0 N/A Sleep Efficiency % 100 85 98 96 91 89 95 Wakefulness (%) 0.0 14.9 1.7 3.2 8.4 10.1 4.5 Wakefulness (min.) 0.0 4.0 0.5 1.0 1.0 1.5 1.5 NREM 1 (%) 0.0 3.7 0.0 6.4 8.4 13.5 3.0 NREM 1 (min.) 0.0 1.0 0.0 2.0 1.0 2.0 1.0 NREM 2 (%) 49.3 54.4 77.0 0.0 46.4 45.9 55.5 NREM 2 (min.) 7.6 14.6 22.9 0.0 5.5 6.8 18.7 NREM 3 (%) 50.7 27.0 0.0 0.0 0.0 0.0 37.1 NREM 3 (min.) 7.8 7.2 0.0 0.0 0.0 0.0 12.5 REM (%) 0.0 0.0 21.4 90.4 36.7 30.5 0.0 REM (min.) 0.0 0.0 6.4 28.3 4.3 4.5 0.0 # Arousals 0 0 0 4 1 2 2 Arousal Index 0.0 0.0 0.0 7.9 5.5 9.0 3.7 # Snore 3 17 10 5 3 5 42 Snore Index 11.8 44.6 20.5 9.9 16.6 22.5 78.3 AHI 74.5 78.7 75.9 27.7 44.3 63.1 33.5 AHI Supine 74.5 78.7 75.9 27.7 44.3 63.1 57.7 AHI Non-Supine N/A N/A N/A N/A N/A N/A 28.9 NREM AHI 74.5 78.7 76.0 30.0 36.9 75.0 33.5 REM AHI N/A N/A 75.5 27.6 55.3 39.9 N/A RDI 74.5 78.7 75.9 27.7 44.3 63.1 33.5 # Obstructive 0 0 0 0 0 0 0 # Central Ap 6 18 0 0 0 1 0 # Mixed 0 0 0 0 0 0 0 # Hypopneas 13 12 37 14 8 13 18 RERAS 0 0 0 0 0 0 0 Total Respiratory Events 19 30 37 14 8 14 18 Time Below SpO2 89.00% (min.) 3.9 6.4 7.7 9.3 1.3 3.1 4.6 Mean NREM SpO2 (%) 91 91 91 91 91 91 91 Mean REM SpO2 (%) N/A N/A 90 91 90 N/A Mean Sleep SpO2 (%) 91 91 90 90 91 91 91 Min NREM SpO2 (%) 83 82 86 88 86 78 75 Min REM SpO2 (%) N/A N/A 85 85 87 86 N/A Position Supine (min.) 15.3 22.9 29.2 30.3 10.8 13.3 5.2 Position Non-supine (min.) 0.0 0.0 0.0 0.0 0.0 0.0 27.0 LM Index Sleep 0.0 2.6 4.1 25.8 22.1 9.0 7.5 LM Index NREM 0.0 2.6 5.2 30.0 9.2 6.8 7.5 LM Index REM N/A N/A 0.0 25.5 41.5 13.3 N/A Mean Heart Rate (bpm) 60 60 60 61 60 62 61 Min Heart Rate (bpm) 59 57 59 58 59 59 59
--- NOTE | 2016-12-16 11:30 | Sleep Study ---
Sleep Study Report Date of Service: December 10, 2016 Sleep Study Report Clinical data: Patient is a 66-year-old male with sleep apnea currently on auto CPAP 6-20 centimeters water pressure. His AHI continues to be elevated and he is symptomatic. He is referred for a split night sleep study. Sleep architecture: For the diagnostic portion of the study, total sleep time was 127.5 minutes, all non REM sleep. Sleep latency was 19.5 minutes. Sleep efficiency was 83 percent. Arousal index was 4.2. Sleep consisted of stage N1 6 percent, stage N2 26 percent, and stage N3 68 percent. During the treatment portion of the study, total sleep time was 372 minutes divided between 274 minutes of non-REM sleep and 98 minutes of REM sleep. Sleep latency was immediate. Sleep efficiency was 92 percent. Arousal index was 3.1. Sleep insisted of stage N1 5 percent, stage N2 37 percent, stage N3 31 percent, and REM 26 percent. Arousal data: Prior to treatment, 9 arousals were recorded for an index of 4.2 per hour. During treatment, 19 arousals recorded for an index of 3.1 per hour PLM data: Prior to treatment, 186 limb movements during sleep were noted for an index of 87.5 per hour. During treatment, 175 limb movements during sleep were noted for an index of 28.2 per hour. EKG: Heart rates ranged from 61 to 91 beats per minute. There appeared to be evidence of atrial fibrillation seen throughout the night. Respiratory data: Prior to treatment, moderate sleep apnea was documented. The AHI was 16. There was 1 central and 5 obstructive apneic episodes. There were 28 hypopneas. During treatment, the AHI was 41.5. There were 49 central apneic episodes and 208 hypopneas recorded. Oximetry data: Nocturnal hypoxemia seen. Oxygen byron was 75 percent during treatment in non-REM sleep. Mean saturation with treatment was 91 percent. Treatment summary: The patient slept in the right and supine positions. Mild snoring was noted, rated 2 on a scale of 1 through 5. At 10:41 p.m., the patient met split night criteria. He was started on CPAP and titrated up to 11 centimeters water pressure. However, he continued to have persistent central apneic episodes. At that point, he was switched to BiPAP and was eventually titrated up to a final pressure setting of BiPAP 21/13 with a backup rate of 12 breaths per minute and a Bi-Flex level of 2. Initially, he was started with nasal pillows but then switched to a nasal mask. No optimal treatment pressure level could be obtained during this titration study. He did appear to have complex sleep apnea with development of central apneic episodes with increasing CPAP pressure. Impression: 66-year-old male with complex sleep apnea. The patient developed significant treatment onset central apneic episodes with positive airway pressure. No optimal CPAP or BiPAP pressure setting could be obtained. Evidence of atrial fibrillation was also seen during the study. Recommendation: Patient may benefit from sleep medicine consultation. Use of ASV may be of benefit if his ejection fraction is above 45 percent. Clinical correlation is needed. Copies To 1: Ammy Cabrera M.D.
== END | disposition home or self-care (01) ==
LOC: C.NEUR 20:00
PROVIDERS: ATTEND Family Medicine Adult Medicine
DX: G47.30 Sleep apnea, unspecified (principal)

== ENCOUNTER 2016-12-26 15:53 | Emergency (ER) | payer OTHER ==
[~2016-12-26] VITALS: Ht 172.7 cm; Wt 126.6 kg
[~2016-12-26 15:53] MED LIST changes: -ALLO100T PO; -AMOX875T PO; -ASPI81TA21 PO; -ATOR-26 PO; -BUSP-8 PO; -CHOL100027 PO; -CLOP1TAB15 PO; -CLR10 PO; -CYAN1TAB17 PO; -FRS/40 PO; -GABA-113 PO; -GLIP5TAB11 PO; -MAGN400C2 PO; -MELA1CAP9 PO; -METO50TA16 PO; -MULT-190 PO; -NTRSL3 UT; -PANT40TA PO; -PXL/40 PO; -SPIR25TA PO; -SYMIN/8045 INH; -TRAZ100T29 PO
[2016-12-26 15:55] VITALS: TEMP 36.6; Ht 172.7 cm; Wt 126.6 kg
--- NOTE | 2016-12-26 16:51 | EMERGENCY ROOM VISIT NOTE ---
History Report prepared by Jany: Kayce Rincon Under the Supervision of: Dr. Sourav Moffett M.D. First contact with patient: 16:02 Chief Complaint: LEG PAIN,LEG INJURY Stated Complaint: LEG SHARP PAIN History of Present Illness The patient is a 66 year old male who presents to the Emergency Room with complaints of worsening left lower leg and left foot pains since last night. The patient states that he has been having some issues with his left lower extremity for the past few months but his symptoms have been very mild. Last night he started experiencing severe, sharp pains that he rates as a 10/10 in severity. His pain is on the lateral aspect of the left foot, up his ankle, and into the lower leg. He states that even his skin feels sore to the touch. He took 300mg of gabapentin before bed and that helped to alleviate his pain. He was able to sleep throughout the night. He states that his pain returned this morning. He has taken two doses of 300 mg of gabapentin today without any relief of his symptoms. The patient has been taking gabapentin for some time for neuropathy in his feet. He was taking 300mg three times daily but in July/ August he was having issues with dizziness. He saw his PCP and she lowered his dosage to 300mg once daily. The patient states that his dizziness has not improved, but his neuropathy did improve. He has not seen his PCP for these symptoms today. [facility] and advised him to come to the ED for further evaluation. The patient denies fevers , chills, cough, congestion, back pain, nausea, vomiting, melena, and hematochezia. He has had multiple episodes of loose, watery diarrhea today, which the patient states is not unusual for him. He has been eating and drinking normally. The patient has a history of gout and DM. His BSG was 178 [employer] [employer]. He also had an infection in the left foot two months ago that has resolved. Source of History: patient, spouse/significant other Onset: last night Position: leg (left), foot (left) Symptom Intensity: 10/10 Quality: sharp Timing: worsening Modifying Factors (Relieving): other (gabapentin) Associated Symptoms: + diarrhea, No fevers, No chills, No cough, No nausea, No vomiting, No back pain, No melena, No hematochezia Review of Systems See HPI for pertinent positives and negatives. A total of ten systems were reviewed and were otherwise negative. 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 (13) urosepsis (14) UTI (urinary tract infection) Surgical Problems: (1) History of urostomy Family History FH: coronary artery disease Social History Smoking Status: Former Smoker Alcohol Use: none Drug Use: none Marital Status: Housing Status: lives with family Occupation Status: retired Current/Historical Medications Scheduled Allopurinol (Zyloprim), 100 MG PO DAILY Aspirin Enteric Coated (Ecotrin Or Generic), 81 MG PO DAILY Atorvastatin (Lipitor), 80 MG PO QPM Budesonide/Formoterol Fumarate (Symbicort 80/4.5 Inhaler), 1 PUFF INH BID Buspirone Hcl (Buspirone Hcl), 2 TAB PO BID Cholecalciferol (Vitamin D 1000 Unit), 2,000 INTER.UNIT PO DAILY Clopidogrel (Plavix), 75 MG PO DAILY Cyanocobalamin (B-12), 2,500 MCG PO DAILY Furosemide (Lasix), 40 MG PO DAILY Furosemide (Lasix), 40 MG PO HS 4XWK Gabapentin (Neurontin), 300 MG PO TID Glipizide (Glucotrol), 2.5 MG PO DAILY Ipratropium-Albuterol (Duoneb), 3 ML INH QIDR Loratadine (Claritin), 10 MG PO DAILY Magnesium Oxide (Magnesium Oxide), 1 CAP PO BID Melatonin (Melatonin), 10 MG PO HS Metoprolol Tartrate (Lopressor) (Lopressor), 50 MG PO BID Ocuvite Preservision (Ocuvite Preservision), 1 TAB PO DAILY Pantoprazole Sodium (Protonix), 40 MG PO DAILY Paroxetine (Paxil), 40 MG PO QPM Spironolactone (Aldactone), 25 MG PO DAILY Trazodone Hcl (Trazodone), 100 MG PO HS Scheduled PRN Clonazepam (Klonopin), 0.5 MG PO DAILY PRN for Anxiety Nitroglycerin (Nitrostat), 0.3 MG UT UD PRN for Chest Pain Allergies Coded Allergies: Codeine (Verified Adverse Reaction, Mild, "trips me out", 12/05/16) CONFUSION Promethazine (Verified Adverse Reaction, Unknown, UNCONTROLLED MUSCLE MOVEMENTS, 12/05/16) Physical Exam Vital Signs Date Time Temp Pulse Resp B/P (MAP) Pulse Ox O2 Delivery O2 Flow Rate FiO2 12/26/16 18:01 61 18 145/77 94 Room Air 12/26/16 15:55 36.6 82 20 146/75 95 Room Air Physical Exam GENERAL: Awake, alert, well-appearing, obese male in no distress HENT: Normocephalic, atraumatic. Oropharynx unremarkable. Mucous membranes are dry. EYES: Normal conjunctiva. Sclera non-icteric. NECK: Supple. No nuchal rigidity. FROM. No JVD. RESPIRATORY: Clear to auscultation. CARDIAC: Regular rate, normal rhythm. Extremities warm and well perfused. Pulses equal. ABDOMEN: Soft, non-distended. No tenderness to palpation. No rebound or guarding. No masses. RECTAL: Deferred. MUSCULOSKELETAL: Chest examination reveals no tenderness. The back is symmetrical on inspection without obvious abnormality. There is no CVA tenderness to palpation. No joint edema. LOWER EXTREMITIES: Calves are equal size bilaterally. No edema. No discoloration. Reports slight pain upon light touch to the skin on the lateral aspect of the left foot and left lower leg, otherwise ROM intact, motor/sensory intact, no swelling or erythema. NEURO: Normal sensorium. No sensory or motor deficits noted. SKIN: No rash or jaundice noted. Medical Decision & Procedures Laboratory Results 12/26/16 16:53 Red Blood Count 4.20, Mean Corpuscular Volume 94.3, Mean Corpuscular Hemoglobin 32.1, Mean Corpuscular Hemoglobin Concent 34.1, Mean Platelet Volume 11.6, Neutrophils (%) (Auto) 62.2, Lymphocytes (%) (Auto) 25.6, Monocytes (%) (Auto) 9.5, Eosinophils (%) (Auto) 2.2, Basophils (%) (Auto) 0.3, Neutrophils # (Auto) 3.88, Lymphocytes # (Auto) 1.60, Monocytes # (Auto) 0.59, Eosinophils # (Auto) 0.14, Basophils # (Auto) 0.02 12/26/16 16:53 Test 12/26/16 16:53 White Blood Count 6.24 K/uL (4.8-10.8) Red Blood Count 4.20 M/uL (4.7-6.1) Hemoglobin 13.5 g/dL (14.0-18.0) Hematocrit 39.6 % (42-52) Mean Corpuscular Volume 94.3 fL (80-100) Mean Corpuscular Hemoglobin 32.1 pg (25-34) Mean Corpuscular Hemoglobin Concent 34.1 g/dl (32-36) Platelet Count 156 K/uL (130-400) Mean Platelet Volume 11.6 fL (7.4-10.4) Neutrophils (%) (Auto) 62.2 % Lymphocytes (%) (Auto) 25.6 % Monocytes (%) (Auto) 9.5 % Eosinophils (%) (Auto) 2.2 % Basophils (%) (Auto) 0.3 % Neutrophils # (Auto) 3.88 K/uL (1.4-6.5) Lymphocytes # (Auto) 1.60 K/uL (1.2-3.4) Monocytes # (Auto) 0.59 K/uL (0.11-0.59) Eosinophils # (Auto) 0.14 K/uL (0-0.5) Basophils # (Auto) 0.02 K/uL (0-0.2) RDW Standard Deviation 49.9 fL (36.4-46.3) RDW Coefficient of Variation 14.7 % (11.5-14.5) Immature Granulocyte % (Auto) 0.2 % Immature Granulocyte # (Auto) 0.01 K/uL (0.00-0.02) Anion Gap 8.0 mmol/L (3-11) Est Creatinine Clear Calc Drug Dose 50.9 ml/min Estimated GFR () 43.8 Estimated GFR (Non- 37.8 BUN/Creatinine Ratio 15.6 (10-20) Calcium Level 8.6 mg/dl (8.5-10.1) Phosphorus Level 2.7 mg/dl (2.5-4.9) Magnesium Level 1.5 mg/dl (1.8-2.4) Laboratory results reviewed by me. Medications Administered Medications (Trade) Dose Ordered Sig/Major Route Start Time Stop Time Status Last Admin Dose Admin Magnesium Oxide (Mag-Ox Tab) 800 mg NOW STAT PO 12/26/16 17:36 12/26/16 17:41 DC 12/26/16 18:00 800 MG ED Course 1602: The patient was evaluated in room C6. A complete history and physical exam was performed. 1736: Magnesium Oxide 800 mg PO 1751: I reassessed the patient at this time. He is feeling better and resting comfortably. I discussed the results and treatment plan with the patient and his . I answered all pertaining questions that they had. They expressed understanding and verbalized agreement. The patient will be discharged home. He will increase his gabapentin to 300mg three times daily until he can follow up with his PCP at the [facility]. Medical Decision I reviewed the patient's past medical history, medications, and the nursing notes as described above. Differential diagnoses includes likely neuropathy vs less likely gout, less likely lumbar radiculopathy. Patient is a 58-year-old gentleman with complicated past medical history including CHF, ems-dtivjyk-skpwayalh diabetes, CKD, gout but seems to department with complaint of left-sided foot and lower leg burning for the past 3 days that is worse from the same symptoms which he has chronically and has been treated with gabapentin. Arrival the patient is well-appearing and in no acute distress afebrile with stable vital signs. On exam his motor sensory intact. Although reports burning pain with light touch to lateral aspect of left foot and left lower leg. No erythema or warmth to suggest infection. No swelling making gout unlikely. Labs showing a mildly decreased magnesium which was repleted. Patient will continue supplementation outpatient. Then for PCP follow-up and patient will return to his prior dose of gabapentin that is 3 times a day and we'll reassess with his PCP. Patient agreeable and was discharged per [facility]. Medication Reconcilliation Current Medication List: was personally reviewed by me Blood Pressure Screening Patient's blood pressure: Elevated blood pressure Blood pressure disposition: Referred to PCP Impression Primary Impression: Neuropathic pain Scribe Attestation The scribe's documentation has been prepared under my direction and personally reviewed by me in its entirety. I confirm that the note above accurately reflects all work, treatment, procedures, and medical decision making performed by me. Departure Information Dispostion Home / Self-Care Prescriptions Magnesium Oxide (MAGNESIUM OXIDE) 400 Mg Cap 1 CAP PO BID for 5 Days, #10 CAP 0 Refills Prov: Sourav Moffett M.D. 12/26/16 Referrals Ammy Cabrera M.D. (PCP) Forms HOME CARE DOCUMENTATION FORM, IMPORTANT VISIT INFORMATION Patient Instructions My [facility], Neuropathy Peripheral Additional Instructions Please follow up with your primary care physician in the next 1-3 days. Your magnesium level was slightly low. Otherwise, your exam did not show signs of an emergent condition. Take magnesium supplements as directed. And recheck her level with her doctor. Increase your gabapentin to her prior dose of 3 times daily. Return to the emergency department for worsening symptoms as described in the accompanying instructions.
[2016-12-26 17:07] LABS: BASO % 0.3 %; BASO ABS # 0.02 K/uL (0-0.2); COMPLETE YES; EOS % 2.2 %; HEMATOCRIT 39.6 % (42-52); IG% 0.2 %; LYMPH % 25.6 %; MEAN CELL VOLUME 94.3 fL (80-100); MEAN CORPUSCULAR HEMOGLOBIN 32.1 pg (25-34); MEAN CORPUSCULAR HGB CONC 34.1 g/dl (32-36); MEAN PLATELET VOLUME 11.6 fL (7.4-10.4); MONO % 9.5 %; NEUT % 62.2 %; PLATELET COUNT 156 K/uL (130-400); WHITE BLOOD COUNT 6.24 K/uL (4.8-10.8)
[2016-12-26 17:33] LABS: BUN/CREATININE RATIO 15.6 (10-20); CALCIUM 8.6 mg/dl (8.5-10.1); CREATININE 1.8 mg/dl (0.60-1.40); MAGNESIUM 1.5 mg/dl (1.8-2.4); PHOSPHORUS 2.7 mg/dl (2.5-4.9); POTASSIUM 4.3 mmol/L (3.5-5.1)
[2016-12-26] MEDS ORDERED: MAGNESIUM OXIDE 400 MG TAB PO STA (17:36)
[2016-12-26 18:01] VITALS: BP 145/77; PULSE 61; O2SAT 94
[2016-12-26] MEDS ORDERED: MAGN400C2 PO (18:01)
[2017-01-23] MEDS ORDERED: SYMIN/8045 INH (05:47)
[2017-01-23] MEDS ORDERED: SPIR25TA PO (07:42)
[2017-01-23] MEDS ORDERED: TRAZ100T29 PO (07:42)
[2017-01-23] MEDS ORDERED: PXL/40 PO (10:36)
[2017-01-23] MEDS ORDERED: FRS/40 PO (13:45)
[2017-01-23] MEDS ORDERED: ASPI81TA21 PO (14:21)
[2017-01-23] MEDS ORDERED: MELA1CAP9 PO (14:53)
[2017-01-23] MEDS ORDERED: GLIP5TAB11 PO (15:50)
[2017-01-23] MEDS ORDERED: CYAN1TAB17 PO (15:50)
[2017-01-23] MEDS ORDERED: PANT40TA PO (16:30)
[2017-01-23] MEDS ORDERED: ALLO100T PO (16:30)
[2017-01-23] MEDS ORDERED: CHOL100027 PO (16:30)
[2017-01-23] MEDS ORDERED: BUSP-8 PO (17:01)
[2017-01-23] MEDS ORDERED: MULT-190 PO (17:01)
[2017-01-23] MEDS ORDERED: GABA-113 PO (17:51)
[2017-01-23] MEDS ORDERED: CLOP1TAB15 PO (17:51)
== END 2016-12-26 18:15 | disposition home or self-care (01) ==
LOC: C.EDB 15:54 → C.EDC 18:15
DX: G62.9 Polyneuropathy, unspecified (principal); I48.91 Unspecified atrial fibrillation; I12.9 Hypertensive chronic kidney disease with stage 1 through stage 4 chronic kidney disease, or unspecified chronic kidney disease; N18.3 Chronic kidney disease, stage 3 (moderate); E11.9 Type 2 diabetes mellitus without complications; E78.5 Hyperlipidemia, unspecified; J44.9 Chronic obstructive pulmonary disease, unspecified; I50.33 Acute on chronic diastolic (congestive) heart failure; Z85.51 Personal history of malignant neoplasm of bladder; Z87.440 Personal history of urinary (tract) infections; Z98.890 Other specified postprocedural states; Z87.891 Personal history of nicotine dependence; Z79.82 Long term (current) use of aspirin; Z79.899 Other long term (current) drug therapy; Z88.5 Allergy status to narcotic agent; Z88.8 Allergy status to other drugs, medicaments and biological substances; Z82.49 Family history of ischemic heart disease and other diseases of the circulatory system

== ENCOUNTER 2017-01-23 18:11 | Emergency (ER) | payer OTHER ==
[~2017-01-23] VITALS: Ht 172.7 cm; Wt 130.6 kg
[~2017-01-23 18:11] MED LIST changes: +ALLO100T PO; +ASPI81TA21 PO; +BUSP-8 PO; +CHOL100027 PO; +CLOP1TAB15 PO; +CYAN1TAB17 PO; -FERR1TAB13 PO; +FRS/40 PO; +GABA-113 PO; +GLIP5TAB11 PO; +MAGN400C2 PO; +MELA1CAP9 PO; +MULT-190 PO; +PANT40TA PO; -PRED10TA PO; -PRED20TA2 PO; -PSEU60TA80 PO; +PXL/40 PO; +SPIR25TA PO; +SYMIN/8045 INH; +TRAZ100T29 PO
[2017-01-23 18:19] VITALS: TEMP 36.9; O2SAT 99; Ht 172.7 cm; Wt 130.6 kg
[2017-01-23] MEDS ORDERED: IPRASOL4 INH (18:44)
[2017-01-23] MEDS ORDERED: CLON1TAB3 PO (18:44)
--- NOTE | 2017-01-23 19:49 | DIAGNOSTIC IMAGING REPORT ---
CHEST ONE VIEW PORTABLE CLINICAL HISTORY: 66 years-old Male presenting with EVALUATE ALTERED MENTAL STATUS/WEAKNESS. TECHNIQUE: Portable upright AP view of the chest was obtained. COMPARISON: 01/23/2017. FINDINGS: Pacemaker with leads to the right atrium and right ventricular apex. Cardiac silhouette enlarged. Lungs and pleural spaces clear. Osseous structures normal. Upper abdomen normal. IMPRESSION: 1. No acute cardiopulmonary disease. 2. Cardiomegaly. Electronically signed by: Avila Graham M.D. 01/23/2017 7:48 PM Dictated Date/Time: 01/23/2017 7:44 PM
[2017-01-23 20:09] LABS: BASO % 0.6 %; BASO ABS # 0.04 K/uL (0-0.2); COMPLETE YES; EOS % 1.8 %; HEMATOCRIT 38.3 % (42-52); IG% 0.3 %; LYMPH % 18.7 %; LYMPH ABS # 1.25 K/uL (1.2-3.4); MEAN CELL VOLUME 92.3 fL (80-100); MEAN CORPUSCULAR HEMOGLOBIN 32.3 pg (25-34); MEAN PLATELET VOLUME 11.9 fL (7.4-10.4); MONO % 8.2 %; NEUT % 70.4 %; PLATELET COUNT 163 K/uL (130-400); RED BLOOD COUNT 4.15 M/uL (4.7-6.1); WHITE BLOOD COUNT 6.67 K/uL (4.8-10.8)
[2017-01-23 20:18] LABS: PARTIAL THROMBOPLASTIN RATIO 1.1; PROTHROMBIN TIME (PATIENT) 10.7 SECONDS (9.0-12.0)
[2017-01-23 20:27] LABS: BLOOD UREA NITROGEN 25 mg/dl (7-18); BUN/CREATININE RATIO 15.4 (10-20); CALCIUM 8.8 mg/dl (8.5-10.1); CARBON DIOXIDE 27 mmol/L (21-32); CHLORIDE 105 mmol/L (98-107); GLUCOSE 111 mg/dl (70-99); POTASSIUM 4.2 mmol/L (3.5-5.1); SODIUM 138 mmol/L (136-145)
[2017-01-23 20:32] LABS: CKMB/CK RATIO 2.1 (0-3.0)
--- NOTE | 2017-01-23 20:50 | EMERGENCY ROOM VISIT NOTE ---
History Report prepared by Jany: Kristyn Pineda Under the Supervision of: Dr. Julián Bryant D.O. First contact with patient: 18:50 Chief Complaint: HYPERTENSION Stated Complaint: HYPERTENSION/DIZZY History of Present Illness The patient is a 66 year old male who presents to the Emergency Room with complaints of persistent high blood pressure starting earlier today. The patient was not feeling well when he woke up this morning. He went out to the [facility] and continued to feel unwell. He had his blood pressure checked at the first aid tent and found that it was high around 180/110. They took his pressure several times and it continued to be high so he presents to the ED by EMS. On the way, they found that his he had a low grade fever around 99.1. He has been having dizzy spell when getting up. He has a slight headache. He denies any chest pain, SOB, nausea, or vomiting. He has been eating and drinking well. He has a history of CHF and is on Lasix. He has a pericardial window due to fluid buildup. He has had a urostomy since 2000 after having bladder cancer. Patient has had UTI in the past and currently denies any symptoms of UTI. Source of History: patient, spouse/significant other Onset: earlier today Position: other (global) Symptom Intensity: 180/110 Quality: other (high blood pressure) Timing: other (persistent) Associated Symptoms: + headache, No chest pain, No SOB, No nausea, No vomiting Note: Pt reports dizzy spells. Review of Systems See HPI for pertinent positives & negatives. A total of 10 systems reviewed and were otherwise negative. 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 (13) urosepsis (14) UTI (urinary tract infection) Surgical Problems: (1) History of urostomy Family History FH: coronary artery disease Social History Smoking Status: Former Smoker Alcohol Use: none Drug Use: none Marital Status: Housing Status: lives with family Occupation Status: retired Current/Historical Medications Scheduled Allopurinol (Zyloprim), 100 MG PO DAILY Aspirin Enteric Coated (Ecotrin Or Generic), 81 MG PO DAILY Atorvastatin (Lipitor), 80 MG PO QPM Budesonide/Formoterol Fumarate (Symbicort 80/4.5 Inhaler), 1 PUFF INH BID Buspirone Hcl (Buspirone Hcl), 20 MG PO BID Cholecalciferol (Vitamin D 1000 Unit), 2,000 INTER.UNIT PO DAILY Clopidogrel (Plavix), 75 MG PO DAILY Cyanocobalamin (B-12), 2,500 MCG PO DAILY Furosemide (Lasix), 40 MG PO DAILY Gabapentin (Neurontin), 300 MG PO TID Glipizide (Glucotrol), 2.5 MG PO DAILY Loratadine (Claritin), 10 MG PO DAILY Melatonin (Melatonin), 10 MG PO HS Metoprolol Tartrate (Lopressor) (Lopressor), 50 MG PO BID Ocuvite Preservision (Ocuvite Preservision), 1 TAB PO DAILY Pantoprazole Sodium (Protonix), 40 MG PO DAILY Paroxetine (Paxil), 40 MG PO QPM Spironolactone (Aldactone), 25 MG PO DAILY Trazodone Hcl (Trazodone), 100 MG PO HS Scheduled PRN Clonazepam (Klonopin), 0.5 MG PO DAILY PRN for Anxiety Ipratropium-Albuterol (Duoneb), 1 TREATMENT INH QID PRN for SOB/Wheezing Nitroglycerin (Nitrostat), 0.3 MG UT UD PRN for Chest Pain Allergies Coded Allergies: Codeine (Verified Adverse Reaction, Mild, "trips me out", 12/05/16) CONFUSION Promethazine (Verified Adverse Reaction, Unknown, UNCONTROLLED MUSCLE MOVEMENTS, 12/05/16) Physical Exam Vital Signs Date Time Temp Pulse Resp B/P (MAP) Pulse Ox O2 Delivery O2 Flow Rate FiO2 01/23/17 20:31 161/85 01/23/17 20:26 60 16 92 01/23/17 20:11 60 14 95 01/23/17 20:00 169/88 01/23/17 19:56 60 20 01/23/17 19:41 64 16 94 01/23/17 19:35 73 18 95 Room Air 01/23/17 19:26 64 29 01/23/17 19:11 60 14 01/23/17 19:00 179/92 01/23/17 18:56 60 21 94 01/23/17 18:41 60 17 92 01/23/17 18:31 151/91 01/23/17 18:26 61 12 94 01/23/17 18:24 172/92 01/23/17 18:19 36.9 62 18 172/92 98 Room Air 01/23/17 18:19 99 Room Air 01/23/17 18:19 85 Physical Exam CONSTITUTIONAL/VITAL SIGNS: Reviewed / noted above. GENERAL: Non-toxic in appearance. INTEGUMENTARY: Warm, dry, and [place]. HEAD: Normocephalic. EYES: without scleral icterus or trauma. ENT/OROPHARYNX: clear and moist. LYMPHADENOPATHY/NECK: Is supple without lymphadenopathy or meningismus. RESPIRATORY: Lungs clear and equal. CARDIOVASCULAR: Regular rate and rhythm. GI/ABDOMEN: Soft and nontender. No organomegaly or pulsatile mass. No rebound or guarding. Normal bowel sounds. EXTREMITIES: Warm and well perfused. BACK: No CVA tenderness. NEUROLOGICAL: Intact without focal deficits. PSYCHIATRIC: normal affect. MUSCULOSKELETAL: Normally developed with good muscle tone. Medical Decision & Procedures ER Provider Diagnostic Interpretation: X ray results and stated below per my interpretation and radiology interpretation. CHEST ONE VIEW PORTABLE CLINICAL HISTORY: 66 years-old Male presenting with EVALUATE ALTERED MENTAL STATUS/WEAKNESS. TECHNIQUE: Portable upright AP view of the chest was obtained. COMPARISON: 01/23/2017. FINDINGS: Pacemaker with leads to the right atrium and right ventricular apex. Cardiac silhouette enlarged. Lungs and pleural spaces clear. Osseous structures normal. Upper abdomen normal. IMPRESSION: 1. No acute cardiopulmonary disease. 2. Cardiomegaly. Electronically signed by: Avila Graham M.D. 01/23/2017 7:48 PM Dictated Date/Time: 01/23/2017 7:44 PM Laboratory Results 01/23/17 19:44 Red Blood Count 4.15, Mean Corpuscular Volume 92.3, Mean Corpuscular Hemoglobin 32.3, Mean Corpuscular Hemoglobin Concent 35.0, Mean Platelet Volume 11.9, Neutrophils (%) (Auto) 70.4, Lymphocytes (%) (Auto) 18.7, Monocytes (%) (Auto) 8.2, Eosinophils (%) (Auto) 1.8, Basophils (%) (Auto) 0.6, Neutrophils # (Auto) 4.69, Lymphocytes # (Auto) 1.25, Monocytes # (Auto) 0.55, Eosinophils # (Auto) 0.12, Basophils # (Auto) 0.04 01/23/17 19:44 Test 01/23/17 18:31 01/23/17 19:44 Bedside Glucose 106 mg/dl (70-99) White Blood Count 6.67 K/uL (4.8-10.8) Red Blood Count 4.15 M/uL (4.7-6.1) Hemoglobin 13.4 g/dL (14.0-18.0) Hematocrit 38.3 % (42-52) Mean Corpuscular Volume 92.3 fL (80-100) Mean Corpuscular Hemoglobin 32.3 pg (25-34) Mean Corpuscular Hemoglobin Concent 35.0 g/dl (32-36) Platelet Count 163 K/uL (130-400) Mean Platelet Volume 11.9 fL (7.4-10.4) Neutrophils (%) (Auto) 70.4 % Lymphocytes (%) (Auto) 18.7 % Monocytes (%) (Auto) 8.2 % Eosinophils (%) (Auto) 1.8 % Basophils (%) (Auto) 0.6 % Neutrophils # (Auto) 4.69 K/uL (1.4-6.5) Lymphocytes # (Auto) 1.25 K/uL (1.2-3.4) Monocytes # (Auto) 0.55 K/uL (0.11-0.59) Eosinophils # (Auto) 0.12 K/uL (0-0.5) Basophils # (Auto) 0.04 K/uL (0-0.2) RDW Standard Deviation 47.9 fL (36.4-46.3) RDW Coefficient of Variation 14.1 % (11.5-14.5) Immature Granulocyte % (Auto) 0.3 % Immature Granulocyte # (Auto) 0.02 K/uL (0.00-0.02) Prothrombin Time 10.7 SECONDS (9.0-12.0) Prothromb Time International Ratio 1.0 (0.9-1.1) Activated Partial Thromboplast Time 28.5 SECONDS (21.0-31.0) Partial Thromboplastin Ratio 1.1 Anion Gap 6.0 mmol/L (3-11) Est Creatinine Clear Calc Drug Dose 58.3 ml/min Estimated GFR () 50.6 Estimated GFR (Non- 43.6 BUN/Creatinine Ratio 15.4 (10-20) Calcium Level 8.8 mg/dl (8.5-10.1) Total Creatine Kinase 91 U/L (39-308) Creatine Kinase MB 1.9 ng/ml (0.5-3.6) Creatine Kinase MB Ratio 2.1 (0-3.0) Troponin I < 0.015 ng/ml (0-0.045) Laboratory results as stated above per my review. ECG Indication: other (dizziness) Rate (beats per minute): 80 Rhythm: other (paced ventricular rhythm) Findings: no ectopy, other (no acute injury) ED Course 1850: Previous medical records were reviewed. The patient was evaluated in room A10. A complete history and physical examination was performed. 2052: On reevaluation, the patient is resting comfortably. I discussed the results and findings with the patient. He verbalized agreement of the treatment plan. He was discharged home. Medical Decision Differential includes acute coronary syndrome, myocardial infarction, CVA, TIA, anemia, infection, pneumonia, UTI, pyelonephritis, poor nutrition, dehydration, electrolyte disturbance,hypoglycemia. This is a 66-year-old male who presents to the ED with a chief complaint of not feeling well. The patient is unable to state more specifically how he feels. He states just stated that he did not feel the greatest this morning. He began feeling a little better in the afternoon and then this evening wasn't feeling so good. He checked his blood pressure and it seemed to be elevated. For this reason he came to the ED. [facility] He denies any chest pains, shortness of breath, headaches, focal weakness or fevers or recent illness. He does have a ureterostomy. He states that it doesn't seem as though is infected. He has had infections of this in the past. His vital signs here revealed some hypertension. He states that he he is somewhat hypertensive at baseline. A twelve-lead EKG reveals a paced ventricular rhythm. CBC is unremarkable, BUN is 25. Creatinine is 1.6. Troponin was negative. PRP was unremarkable. The patient was told results. He is felt to be stable for discharge. His exam was unremarkable. He return for any worsening or new concerns. Medication Reconcilliation Current Medication List: was personally reviewed by me Blood Pressure Screening Patient's blood pressure: Elevated blood pressure Blood pressure disposition: Referred to PCP Impression Primary Impression: Malaise Scribe Attestation The scribe's documentation has been prepared under my direction and personally reviewed by me in its entirety. I confirm that the note above accurately reflects all work, treatment, procedures, and medical decision making performed by me. Departure Information Dispostion Home / Self-Care Referrals Ammy Cabrera M.D. (PCP) Patient Instructions My [facility] Additional Instructions Follow-up with your doctor for further care and evaluation in 1-5 days. Return to the emergency department for worsening or new symptoms or any concerns. You have been examined and treated today on an emergency basis only. This is not a substitute for, or an effort to provide, complete comprehensive medical care. It is impossible to recognize and treat all injuries or illnesses in a single emergency department visit. It is therefore important that you follow up closely with your doctor. Call as soon as possible for an appointment.
[2017-01-23 20:51] VITALS: PULSE 60; O2SAT 93
[2017-01-23 20:56] VITALS: BP 156/85
[2017-01-23] MEDS ORDERED: ATOR-26 PO (21:56)
[2017-01-23] MEDS ORDERED: METO50TA16 PO (21:56)
[2017-01-23] MEDS ORDERED: CLR10 PO (23:55)
[2017-01-23] MEDS ORDERED: NTRSL3 UT (23:55)
== END 2017-01-23 21:10 | disposition home or self-care (01) ==
LOC: EDBD 18:11 → C.EDA 18:12
DX: R53.81 Other malaise (principal); J44.9 Chronic obstructive pulmonary disease, unspecified; I48.91 Unspecified atrial fibrillation; I50.33 Acute on chronic diastolic (congestive) heart failure; I12.9 Hypertensive chronic kidney disease with stage 1 through stage 4 chronic kidney disease, or unspecified chronic kidney disease; N18.3 Chronic kidney disease, stage 3 (moderate); E78.5 Hyperlipidemia, unspecified; E11.9 Type 2 diabetes mellitus without complications; Z85.51 Personal history of malignant neoplasm of bladder; Z87.440 Personal history of urinary (tract) infections; Z82.49 Family history of ischemic heart disease and other diseases of the circulatory system; Z87.891 Personal history of nicotine dependence; Z79.82 Long term (current) use of aspirin; Z79.02 Long term (current) use of antithrombotics/antiplatelets; Z79.899 Other long term (current) drug therapy

== ENCOUNTER 2017-05-07 09:33 | Emergency (ER) | payer OTHER ==
[~2017-05-07] VITALS: Ht 172.7 cm; Wt 128.3 kg
[~2017-05-07 09:33] MED LIST changes: +ATOR-26 PO; +CLR10 PO; -FURO40TA3 PO; -MAGN400C2 PO; +METO50TA16 PO; +NTRSL3 UT
[2017-05-07 09:36] VITALS: TEMP 36.3; Ht 172.7 cm; Wt 128.3 kg
[2017-05-07] MEDS ORDERED: ALBUT/IPRATROP 3MG/0.5MG NEB 3 ML VIAL INH ONE (10:15)
[2017-05-07 10:26] VITALS: O2SAT 94
[2017-05-07 10:30] LABS: BASO % 0.4 %; BASO ABS # 0.03 K/uL (0-0.2); COMPLETE YES; EOS % 1.6 %; HEMATOCRIT 40.9 % (42-52); IG% 0.3 %; LYMPH % 12.4 %; LYMPH ABS # 0.93 K/uL (1.2-3.4); MEAN CELL VOLUME 91.7 fL (80-100); MEAN CORPUSCULAR HEMOGLOBIN 32.3 pg (25-34); MEAN CORPUSCULAR HGB CONC 35.2 g/dl (32-36); MEAN PLATELET VOLUME 12.4 fL (7.4-10.4); MONO % 9.1 %; NEUT % 76.2 %; PLATELET COUNT 141 K/uL (130-400); RED BLOOD COUNT 4.46 M/uL (4.7-6.1); WHITE BLOOD COUNT 7.51 K/uL (4.8-10.8)
[2017-05-07] MEDS ORDERED: METHYLPREDNISOLONE 125 MG VIAL IV STA (10:40)
[2017-05-07] MEDS ORDERED: METHYLPREDNISOLONE 60 MG in SYRINGE 0 ML IV SCH (10:40)
--- NOTE | 2017-05-07 10:40 | DIAGNOSTIC IMAGING REPORT ---
CHEST ONE VIEW PORTABLE CLINICAL HISTORY: Shortness of breath, cough, wheeze. COMPARISON STUDY: A [id number] FINDINGS: The heart remains enlarged. There is a left subclavian dual-chamber central venous pacemaker. There is no failure. There is no focal pulmonary consolidation. There are no pleural effusions.[ IMPRESSION: Cardiomegaly. No acute findings. Electronically signed by: Rafa Durant M.D. 05/07/2017 10:38 AM Dictated Date/Time: 05/07/2017 10:38 AM
[2017-05-07 10:47] LABS: ALT/SGPT 28 U/L (12-78); BLOOD UREA NITROGEN 26 mg/dl (7-18); CALCIUM 8.6 mg/dl (8.5-10.1); CARBON DIOXIDE 33 mmol/L (21-32); CHLORIDE 100 mmol/L (98-107); CREATININE 1.62 mg/dl (0.60-1.40); GLUCOSE 211 mg/dl (70-99); POTASSIUM 4.1 mmol/L (3.5-5.1); SODIUM 137 mmol/L (136-145)
[2017-05-07] MEDS ORDERED: SODIUM CHLORIDE 0.9% 1000ML 1,000 ML IV STA (10:48)
[2017-05-07 10:49] VITALS: PULSE 66; O2SAT 96
[2017-05-07 10:51] LABS: ALB/GLOB RATIO 1.1 (0.9-2); ALKALINE PHOSPHATASE 117 U/L (45-117); AST/SGOT 18 U/L (15-37); CKMB/CK RATIO 1.9 (0-3.0)
[2017-05-07] MEDS ORDERED: MULT60CA PO (10:51)
[2017-05-07] MEDS ORDERED: PRED20TA2 PO (11:39)
[2017-05-07] MEDS ORDERED: AZITHROMYCIN 250 MG TAB PO STA (11:39)
--- NOTE | 2017-05-07 12:32 | EMERGENCY ROOM VISIT NOTE ---
History First contact with patient: 09:52 Chief Complaint: SHORTNESS OF BREATH Stated Complaint: SOB,COUGH Nursing Triage Summary: patient had radiofrequency denervation for the lower back on friday at [facility]. patient states on friday night patient c/o SOB and cough friday evening. denies fever. denies redness to injection site. patient unable to sleep during night due to cough. states breathing has gotten worse overnight. patient used neb treatment and inhaler this AM c/ no relief History of Present Illness The patient is a 66 year old male who presents to the Emergency Room with complaints of shortness of breath. The patient recently had a radiofrequency ablation done however also has a history of COPD as well as congestive heart failure. He took an inhaler at home without improvement in his symptoms. He denies any fevers or chills however recently had the flu. He has not taken anything other than the inhaler. Review of Systems See HPI for pertinent positives & negatives. A total of 10 systems reviewed and were otherwise negative. 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 (13) urosepsis (14) UTI (urinary tract infection) Surgical Problems: (1) History of urostomy Family History FH: coronary artery disease Social History Smoking Status: Former Smoker Alcohol Use: none Drug Use: none Marital Status: Housing Status: lives with family Occupation Status: retired Current/Historical Medications Scheduled Allopurinol (Zyloprim), 100 MG PO DAILY Aspirin Enteric Coated (Ecotrin Or Generic), 81 MG PO DAILY Atorvastatin (Lipitor), 80 MG PO QPM Budesonide/Formoterol Fumarate (Symbicort 80/4.5 Inhaler), 1 PUFF INH BID Buspirone Hcl (Buspirone Hcl), 20 MG PO BID Cholecalciferol (Vitamin D 1000 Unit), 2,000 INTER.UNIT PO DAILY Clopidogrel (Plavix), 75 MG PO DAILY Cyanocobalamin (B-12), 2,500 MCG PO DAILY Furosemide (Lasix), 40 MG PO BID Gabapentin (Neurontin), 300 MG PO TID Glipizide (Glucotrol), 2.5 MG PO DAILY Loratadine (Claritin), 10 MG PO DAILY Melatonin (Melatonin), 10 MG PO HS Metoprolol Tartrate (Lopressor) (Lopressor), 50 MG PO BID Multiple Vitamins W/ Minerals (Preservision Areds 2), 1 CAP PO DAILY Pantoprazole Sodium (Protonix), 40 MG PO DAILY Paroxetine (Paxil), 40 MG PO QPM Prednisone (Prednisone Tab), 0 PO DAILY Spironolactone (Aldactone), 25 MG PO DAILY Trazodone Hcl (Trazodone), 100 MG PO HS Scheduled PRN Clonazepam (Klonopin), 0.5 MG PO DAILY PRN for Anxiety Ipratropium-Albuterol (Duoneb), 1 TREATMENT INH QID PRN for SOB/Wheezing Nitroglycerin (Nitrostat), 0.3 MG UT UD PRN for Chest Pain Physical Exam Vital Signs Date Time Temp Pulse Resp B/P (MAP) Pulse Ox O2 Delivery O2 Flow Rate FiO2 05/07/17 11:53 80 20 173/87 96 Nasal Cannula 4.0 05/07/17 10:49 66 17 96 Nasal Cannula 3.0 05/07/17 10:26 96 Nasal Cannula 05/07/17 10:26 94 Room Air 05/07/17 10:17 60 05/07/17 09:42 94 Room Air 05/07/17 09:36 36.3 78 24 182/93 95 Room Air Physical Exam GENERAL: Patient is a healthy-appearing well-nourished 66 y/o male HEAD: Normocephalic atraumatic EYES: Ocular movements intact pupils equal and react to light OROPHARYNX mucous membranes are moist no exudates present no erythema or edema present NECK: Supple no nuchal rigidity CHEST: Good equal expansion LUNGS: Clear and equal to auscultation, B/l wheezing present CARDIAC: Normal S1 and S2 ABDOMEN: Soft nontender no guarding BACK: No CVA tenderness EXTREMITIES: No pain upon palpation normal muscle strength in all groups no clubbing cyanosis or edema NEURO: Patient is following commands is answering questions appropriately. Alert and oriented x3 Cranial Nerves 2-12 grossly intact Medical Decision & Procedures Laboratory Results 05/07/17 10:20 Red Blood Count 4.46, Mean Corpuscular Volume 91.7, Mean Corpuscular Hemoglobin 32.3, Mean Corpuscular Hemoglobin Concent 35.2, Mean Platelet Volume 12.4, Neutrophils (%) (Auto) 76.2, Lymphocytes (%) (Auto) 12.4, Monocytes (%) (Auto) 9.1, Eosinophils (%) (Auto) 1.6, Basophils (%) (Auto) 0.4, Neutrophils # (Auto) 5.73, Lymphocytes # (Auto) 0.93, Monocytes # (Auto) 0.68, Eosinophils # (Auto) 0.12, Basophils # (Auto) 0.03 05/07/17 10:20 Test 05/07/17 10:20 05/07/17 11:50 White Blood Count 7.51 K/uL (4.8-10.8) Red Blood Count 4.46 M/uL (4.7-6.1) Hemoglobin 14.4 g/dL (14.0-18.0) Hematocrit 40.9 % (42-52) Mean Corpuscular Volume 91.7 fL (80-100) Mean Corpuscular Hemoglobin 32.3 pg (25-34) Mean Corpuscular Hemoglobin Concent 35.2 g/dl (32-36) Platelet Count 141 K/uL (130-400) Mean Platelet Volume 12.4 fL (7.4-10.4) Neutrophils (%) (Auto) 76.2 % Lymphocytes (%) (Auto) 12.4 % Monocytes (%) (Auto) 9.1 % Eosinophils (%) (Auto) 1.6 % Basophils (%) (Auto) 0.4 % Neutrophils # (Auto) 5.73 K/uL (1.4-6.5) Lymphocytes # (Auto) 0.93 K/uL (1.2-3.4) Monocytes # (Auto) 0.68 K/uL (0.11-0.59) Eosinophils # (Auto) 0.12 K/uL (0-0.5) Basophils # (Auto) 0.03 K/uL (0-0.2) RDW Standard Deviation 47.8 fL (36.4-46.3) RDW Coefficient of Variation 14.3 % (11.5-14.5) Immature Granulocyte % (Auto) 0.3 % Immature Granulocyte # (Auto) 0.02 K/uL (0.00-0.02) Nucleated RBC Absolute Count (auto) 0.02 K/uL (0-0) Nucleated Red Blood Cells % 0.2 % Anion Gap 4.0 mmol/L (3-11) Est Creatinine Clear Calc Drug Dose 57.0 ml/min Estimated GFR () 49.8 Estimated GFR (Non- 43.0 BUN/Creatinine Ratio 16.0 (10-20) Calcium Level 8.6 mg/dl (8.5-10.1) Total Bilirubin 0.6 mg/dl (0.2-1) Aspartate Amino Transf (AST/SGOT) 18 U/L (15-37) Alanine Aminotransferase (ALT/SGPT) 28 U/L (12-78) Alkaline Phosphatase 117 U/L (45-117) Total Creatine Kinase 104 U/L (39-308) Creatine Kinase MB 2.0 ng/ml (0.5-3.6) Creatine Kinase MB Ratio 1.9 (0-3.0) Troponin I < 0.015 ng/ml (0-0.045) Total Protein 7.3 gm/dl (6.4-8.2) Albumin 3.9 gm/dl (3.4-5.0) Globulin 3.4 gm/dl (2.5-4.0) Albumin/Globulin Ratio 1.1 (0.9-2) Medications Administered Medications (Trade) Dose Ordered Sig/Major Route Start Time Stop Time Status Last Admin Dose Admin Albuterol/ Ipratropium (Duoneb) 12 ml ONE ONCE INH 05/07/17 10:15 05/07/17 10:16 DC 05/07/17 10:47 12 ML Sodium Chloride 1,000 ml @ 999 mls/hr Q1H1M STAT IV 05/07/17 10:48 05/07/17 11:48 DC 05/07/17 10:48 999 MLS/HR Azithromycin (Zithromax Tab) 500 mg NOW STAT PO 05/07/17 11:39 05/07/17 11:40 DC 05/07/17 11:51 500 MG Methylprednisolone Sodium Succinate 60 mg/Syringe 0.96 ml @ 1.5 mls/min TODAY@1040 IV 05/07/17 10:40 05/07/17 12:30 05/07/17 11:57 1.5 MLS/MIN ECG Indication: SOB/dyspnea Rate (beats per minute): 61 Rhythm: other Findings: no acute ischemic change, paced rhythm, no ectopy Medical Decision This is a 66-year-old male who presents emergency department complaining of shortness of breath. The patient is wheezing bilaterally on exam. Based on this finding the patient was given an hour-long breathing treatment and started on Solu-Medrol. Repeat examination revealed much improvement the patient's symptoms. By differential diagnosis includes bronchitis, PE, congestive heart failure, COPD exacerbation. Based on the wheezing I feel the patient is suffering from COPD. He has no evidence of congestive heart failure on x-ray. The patient will placed on azithromycin as well as prednisone for follow-up with his primary care physician. I stressed the need to return to the emergency department the patient begins running fevers or he becomes short of breath. Both patient and are in agreement with the treatment plan. Medication Reconcilliation Current Medication List: was personally reviewed by me Blood Pressure Screening Patient's blood pressure: Elevated blood pressure Impression Primary Impression: Chronic obstructive pulmonary disease Departure Information Dispostion Home / Self-Care Condition GOOD Prescriptions Prednisone (Prednisone Tab) 20 Mg Tab 0 PO DAILY, #7 TAB 2 TABS DAILY FOR 2 DAYS, THEN 1 TAB DAILY FOR 2 DAYS, THEN 1/2 TAB DAILY FOR 2 DAYS. Prov: Julián Alberts MD 05/07/17 Referrals No Doctor, Assigned (PCP) Forms HOME CARE DOCUMENTATION FORM, School Instructions, Work Instructions, IMPORTANT VISIT INFORMATION Patient Instructions COPD - [facility], [facility] Additional Instructions Use inhaler twice every 6 hours You have been examined and treated today on an emergency basis only. This is not a substitute for, or an effort to provide, complete comprehensive medical care. It is impossible to recognize and treat all injuries or illnesses in a single emergency department visit. It is therefore important that you follow up closely with your PCP. Call as soon as possible for an appointment. Thank you for your time and consideration. I look forward to speaking with you again soon. Please don't hesitate to call us if you have any questions. Problem Qualifiers Primary Impression: Chronic obstructive pulmonary disease COPD type: COPD with acute exacerbation Qualified Codes: J44.1 - Chronic obstructive pulmonary disease with (acute) exacerbation
[2017-05-07 12:43] VITALS: BP 176/97; PULSE 65; O2SAT 96
[2017-05-07 13:23] LABS: INFLUENZA A PCR Neg for Influ A (NEG); INFLUENZA B PCR Neg for Influ B (NEG)
== END 2017-05-07 13:00 | disposition home or self-care (01) ==
LOC: C.EDB 09:34
DX: J44.1 Chronic obstructive pulmonary disease with (acute) exacerbation (principal); I50.9 Heart failure, unspecified; I48.91 Unspecified atrial fibrillation; N18.3 Chronic kidney disease, stage 3 (moderate); E11.22 Type 2 diabetes mellitus with diabetic chronic kidney disease; E78.5 Hyperlipidemia, unspecified; R03.0 Elevated blood-pressure reading, without diagnosis of hypertension; Z87.891 Personal history of nicotine dependence

== ENCOUNTER 2017-07-23 15:45 | Inpatient (IN) | payer OTHER ==
[~2017-07-23] VITALS: Ht 172.7 cm; Wt 120.0 kg
[~2017-07-23 15:45] MED LIST changes: -MULT-190 PO; +MULT60CA PO; +PRED20TA2 PO
[2017-07-23] MEDS ORDERED: SODIUM CHLORIDE 0.9% 1000ML 1,000 ML IV STA (16:34)
[2017-07-23 16:46] LABS: BASO % 0.6 %; BASO ABS # 0.04 K/uL (0-0.2); EOS % 2.8 %; EOS ABS # 0.18 K/uL (0-0.5); HEMATOCRIT 42.2 % (42-52); HEMOGLOBIN 14.6 g/dL (14.0-18.0); IG# 0.02 K/uL (0.00-0.02); LYMPH % 24.2 %; LYMPH ABS # 1.56 K/uL (1.2-3.4); MEAN CELL VOLUME 92.1 fL (80-100); MEAN CORPUSCULAR HEMOGLOBIN 31.9 pg (25-34); MEAN CORPUSCULAR HGB CONC 34.6 g/dl (32-36); MONO % 8.4 %; MONO ABS # 0.54 K/uL (0.11-0.59); NEUT % 63.7 %; NEUT ABS # 4.11 K/uL (1.4-6.5); PLATELET COUNT 151 K/uL (130-400); RED CELL DISTRIBUTION WIDTH CV 14.8 % (11.5-14.5); RED CELL DISTRIBUTION WIDTH SD 49.9 fL (36.4-46.3); WHITE BLOOD COUNT 6.45 K/uL (4.8-10.8)
[2017-07-23 16:51] LABS: PTT PATIENT 26.1 SECONDS (21.0-31.0)
[2017-07-23 16:53] LABS: ALBUMIN 3.7 gm/dl (3.4-5.0); ALT/SGPT 38 U/L (12-78); BLOOD UREA NITROGEN 25 mg/dl (7-18); CALCIUM 8.4 mg/dl (8.5-10.1); CARBON DIOXIDE 28 mmol/L (21-32); CREATININE 1.75 mg/dl (0.60-1.40); GLUCOSE 220 mg/dl (70-99); LIPASE 372 U/L (73-393); POTASSIUM 3.8 mmol/L (3.5-5.1); SODIUM 138 mmol/L (136-145)
--- NOTE | 2017-07-23 16:55 | DIAGNOSTIC IMAGING REPORT ---
SINGLE VIEW CHEST CLINICAL HISTORY: Generalized weakness. FINDINGS: An AP, portable, upright chest radiograph is compared to study dated 05/07/2017. The examination is degraded by portable technique and patient rotation. A 2-lead cardiac pacemaker is unchanged in position and partially obscures the left apex. The heart is enlarged and there is atherosclerotic calcification of the thoracic aorta. The pulmonary vasculature is noncongested. Chronic interstitial thickening is unchanged. There is mild bibasilar atelectasis. No airspace consolidation is seen typical for pneumonia and there is no large pleural effusion. No pneumothorax is seen. The skeletal structures are osteopenic. The bony thorax is grossly intact. IMPRESSION: 1. Cardiomegaly and cardiac pacemaker. There is no radiographic evidence of congestive failure. 2. No airspace consolidation or pleural effusion is identified. Electronically signed by: Asaf Rose M.D. 07/23/2017 4:54 PM Dictated Date/Time: 07/23/2017 4:53 PM
[2017-07-23 17:04] LABS: ALKALINE PHOSPHATASE 106 U/L (45-117); AST/SGOT 26 U/L (15-37); TOTAL PROTEIN 7.2 gm/dl (6.4-8.2)
--- NOTE | 2017-07-23 17:27 | DIAGNOSTIC IMAGING REPORT ---
HEAD CT NONCONTRAST CT DOSE: 712.55 mGy.cm HISTORY: EVALUATE WEAKNESS TECHNIQUE: Multiaxial CT images of the head were performed without the use of intravenous contrast. Automated exposure control was utilized for this study. A dose lowering technique was utilized adhering to the principles of ALARA. Comparison: Head CT 01/08/2014. Findings: The paranasal sinuses and mastoid air cells are clear. The calvarium and skull base are intact. There is no mass, hematoma, midline shift, acute infarct. White matter hypodensity is nonspecific but suggestive of microvascular ischemic change. The ventricles and sulci demonstrate mild age-related involutional changes. Old left parietal lobe infarct. Impression: No acute intracranial abnormality. Atrophy and microvascular ischemic changes. Old left parietal lobe infarct. Electronically signed by: James Wilson M.D. 07/23/2017 5:26 PM Dictated Date/Time: 07/23/2017 5:24 PM
--- NOTE | 2017-07-23 17:36 | EMERGENCY ROOM VISIT NOTE ---
History Report prepared by Jany: Osiel Raymundo Under the Supervision of: Dr. Aditya Butcher M.D. First contact with patient: 16:01 Chief Complaint: NEURO SYMPTOMS Stated Complaint: DIZZY, WEAK, LOSS OF BALANCE- HX OF MINI STROKE Nursing Triage Summary: pt reports yesterday upon waking he had balance issues and sx went away after a couple hours . sx started again as soon as he woke at 0700. having slurred speech and gait now. pt in mehdi gave spouses date of and slurring speech. has hx of mini stroke. History of Present Illness The patient is a 67 year old white male with a past medical history of COPD, A- fib, TIA, HTN, HLD, previous bladder and prostate cancer, urostomy placement, sepsis and DM who presents to the ED with a cc of intermittent neurologic symptoms beginning yesterday. His symptoms include confusion, "slow" and slurred speech, gait difficulty (listing to one side) and generalized weakness ( specifically his legs). He states "it feels like my head was in outer space" upon waking up yesterday. He states that this lasted for three hours. His symptoms were then present upon waking today again at 7:00am (9.5 hours ago) and have been constant since. Positive resolved headache this morning. Negative numbness, dizziness. He denies focal weakness. The patient is on baby aspirin and Plavix. No recent falls or trauma. Eating and drinking normally. Urinating and defecating normally. No history of seizures. Took medications normally today. Per nursing staff, the patient had a near-syncopal event upon arrival to the ED. Source of History: patient, nursing staff Onset: Yesterday Position: other (global) Quality: other (neurologic symptoms) Timing: intermittent Associated Symptoms: + headache (resolved, this morning), + weakness ( generalized), No numbness Note: Negative: dizziness. Positive: slurred and "slow" speech, gait difficulty, and confusion. Review of Systems See HPI for pertinent positives and negatives. A total of ten systems were reviewed and were otherwise negative. Past Medical & Surgical Medical Problems: (1) Acute exacerbation of chronic obstructive pulmonary disease (COPD) (2) Acute kidney injury (3) Acute on chronic diastolic heart failure (4) Atrial fibrillation (5) Benign hypertension (6) Chronic kidney disease stage 3 (7) Chronic obstructive lung disease (8) Dehydration, mild (9) Diabetes mellitus (10) Hyperlipidemia (11) Sepsis (12) Sepsis due to urinary tract infection (13) Staghorn calculus (14) Transitional cell carcinoma of bladder (15) urosepsis (16) UTI (urinary tract infection) Surgical Problems: (1) History of urostomy Family History FH: coronary artery disease Social History Smoking Status: Never Smoker Alcohol Use: none Drug Use: none Marital Status: Housing Status: lives with family Occupation Status: retired Current/Historical Medications Scheduled Allopurinol (Zyloprim), 100 MG PO DAILY Aspirin Enteric Coated (Ecotrin Or Generic), 81 MG PO DAILY Atorvastatin (Lipitor), 80 MG PO QPM Budesonide/Formoterol Fumarate (Symbicort 80/4.5 Inhaler), 1 PUFF INH BID Buspirone Hcl (Buspirone Hcl), 20 MG PO BID Cholecalciferol (Vitamin D 1000 Unit), 2,000 INTER.UNIT PO DAILY Clopidogrel (Plavix), 75 MG PO DAILY Cyanocobalamin (B-12), 2,500 MCG PO DAILY Furosemide (Lasix), 40 MG PO BID Gabapentin (Neurontin), 300 MG PO TID Glipizide (Glucotrol), 5 MG PO DAILY Loratadine (Claritin), 10 MG PO DAILY Melatonin (Melatonin), 10 MG PO HS Metoprolol Tartrate (Lopressor) (Lopressor), 50 MG PO BID Multiple Vitamins W/ Minerals (Preservision Areds 2), 1 CAP PO DAILY Pantoprazole Sodium (Protonix), 40 MG PO DAILY Paroxetine (Paxil), 40 MG PO QPM Spironolactone (Aldactone), 25 MG PO DAILY Trazodone Hcl (Trazodone), 100 MG PO HS Scheduled PRN Clonazepam (Klonopin), 0.5 MG PO DAILY PRN for Anxiety Ipratropium-Albuterol (Duoneb), 1 TREATMENT INH QID PRN for SOB/Wheezing Nitroglycerin (Nitrostat), 0.3 MG UT UD PRN for Chest Pain Allergies Coded Allergies: Codeine (Verified Adverse Reaction, Mild, "trips me out", 07/23/17) CONFUSION Promethazine (Verified Adverse Reaction, Unknown, UNCONTROLLED MUSCLE MOVEMENTS, 2/21/18) Physical Exam Vital Signs Date Time Temp Pulse Resp B/P (MAP) Pulse Ox O2 Delivery O2 Flow Rate FiO2 07/23/17 20:31 161/108 07/23/17 20:30 60 17 93 Room Air 07/23/17 20:23 60 12 169/81 94 Room Air 07/23/17 19:04 94 Room Air 07/23/17 19:01 175/88 07/23/17 19:00 60 15 07/23/17 18:31 158/82 07/23/17 18:30 60 18 92 Room Air 07/23/17 18:01 147/64 07/23/17 18:00 61 22 93 07/23/17 17:30 60 15 159/81 93 Room Air 07/23/17 17:22 61 16 144/77 94 Room Air 07/23/17 16:54 61 18 159/72 95 Room Air 07/23/17 16:54 61 07/23/17 16:21 97 Room Air 07/23/17 15:56 36.7 62 18 149/85 96 Room Air Physical Exam GENERAL: Awake, alert, well-appearing, NAD HENT: Normocephalic, atraumatic. Dry mucous membranes EYES: Normal conjunctiva. Sclera non-icteric. NECK: Supple. No nuchal rigidity. FROM. RESPIRATORY: CTAB, no rhonchi, wheezing, crackles CARDIAC: RRR, no MRG, device in left chest ABDOMEN: Soft, NTND, BS+ MSK: Device in left chest. No chest wall TTP, no LE edema NEURO: ? difficulty w/ raising R eyebrow and cheek insufflation, 5/5 upper and lower extremity strength, no dysmetria, ?LUE drift, good finger to nose, no sensory deficits. SKIN: No rash or jaundice noted. Medical Decision & Procedures ER Provider Diagnostic Interpretation: Radiology results as stated below per my review and radiologist interpretation: SINGLE VIEW CHEST FINDINGS: An AP, portable, upright chest radiograph is compared to study dated 05/07/2017. The examination is degraded by portable technique and patient rotation. A 2-lead cardiac pacemaker is unchanged in position and partially obscures the left apex. The heart is enlarged and there is atherosclerotic calcification of the thoracic aorta. The pulmonary vasculature is noncongested. Chronic interstitial thickening is unchanged. There is mild bibasilar atelectasis. No airspace consolidation is seen typical for pneumonia and there is no large pleural effusion. No pneumothorax is seen. The skeletal structures are osteopenic. The bony thorax is grossly intact. IMPRESSION: 1. Cardiomegaly and cardiac pacemaker. There is no radiographic evidence of congestive failure. 2. No airspace consolidation or pleural effusion is identified. Electronically signed by: Asaf Rose M.D. 07/23/2017 4:[address] NONCONTRAST Findings: The paranasal sinuses and mastoid air cells are clear. The calvarium and skull base are intact. There is no mass, hematoma, midline shift, acute infarct. White matter hypodensity is nonspecific but suggestive of microvascular ischemic change. The ventricles and sulci demonstrate mild age-related involutional changes. Old left parietal lobe infarct. Impression: No acute intracranial abnormality. Atrophy and microvascular ischemic changes. Old left parietal lobe infarct. Electronically signed by: James Wilson M.D. 07/23/2017 5:26 PM Laboratory Results 07/23/17 16:10 Red Blood Count 4.58, Mean Corpuscular Volume 92.1, Mean Corpuscular Hemoglobin 31.9, Mean Corpuscular Hemoglobin Concent 34.6, Mean Platelet Volume 12.0, Neutrophils (%) (Auto) 63.7, Lymphocytes (%) (Auto) 24.2, Monocytes (%) (Auto) 8.4, Eosinophils (%) (Auto) 2.8, Basophils (%) (Auto) 0.6, Neutrophils # (Auto) 4.11, Lymphocytes # (Auto) 1.56, Monocytes # (Auto) 0.54, Eosinophils # (Auto) 0.18, Basophils # (Auto) 0.04 07/23/17 16:10 Test 07/23/17 16:10 07/23/17 19:03 White Blood Count 6.45 K/uL (4.8-10.8) Red Blood Count 4.58 M/uL (4.7-6.1) Hemoglobin 14.6 g/dL (14.0-18.0) Hematocrit 42.2 % (42-52) Mean Corpuscular Volume 92.1 fL (80-100) Mean Corpuscular Hemoglobin 31.9 pg (25-34) Mean Corpuscular Hemoglobin Concent 34.6 g/dl (32-36) Platelet Count 151 K/uL (130-400) Mean Platelet Volume 12.0 fL (7.4-10.4) Neutrophils (%) (Auto) 63.7 % Lymphocytes (%) (Auto) 24.2 % Monocytes (%) (Auto) 8.4 % Eosinophils (%) (Auto) 2.8 % Basophils (%) (Auto) 0.6 % Neutrophils # (Auto) 4.11 K/uL (1.4-6.5) Lymphocytes # (Auto) 1.56 K/uL (1.2-3.4) Monocytes # (Auto) 0.54 K/uL (0.11-0.59) Eosinophils # (Auto) 0.18 K/uL (0-0.5) Basophils # (Auto) 0.04 K/uL (0-0.2) RDW Standard Deviation 49.9 fL (36.4-46.3) RDW Coefficient of Variation 14.8 % (11.5-14.5) Immature Granulocyte % (Auto) 0.3 % Immature Granulocyte # (Auto) 0.02 K/uL (0.00-0.02) Prothrombin Time 10.3 SECONDS (9.0-12.0) Prothromb Time International Ratio 1.0 (0.9-1.1) Activated Partial Thromboplast Time 26.1 SECONDS (21.0-31.0) Partial Thromboplastin Ratio 1.0 Anion Gap 7.0 mmol/L (3-11) Est Creatinine Clear Calc Drug Dose 50.2 ml/min Estimated GFR () 45.0 Estimated GFR (Non- 38.9 BUN/Creatinine Ratio 14.1 (10-20) Calcium Level 8.4 mg/dl (8.5-10.1) Magnesium Level 1.7 mg/dl (1.8-2.4) Total Bilirubin 0.7 mg/dl (0.2-1) Direct Bilirubin 0.2 mg/dl (0-0.2) Aspartate Amino Transf (AST/SGOT) 26 U/L (15-37) Alanine Aminotransferase (ALT/SGPT) 38 U/L (12-78) Alkaline Phosphatase 106 U/L (45-117) Troponin I < 0.015 ng/ml (0-0.045) Pro-B-Type Natriuretic Peptide 1715 pg/ml (0-900) Total Protein 7.2 gm/dl (6.4-8.2) Albumin 3.7 gm/dl (3.4-5.0) Lipase 372 U/L (73-393) Thyroid Stimulating Hormone (TSH) 3.980 uIu/ml (0.300-4.500) Hepatitis C Antibody Screen NEG (NEG) Urine Color YELLOW Urine Appearance CLOUDY (CLEAR) Urine pH 5.5 (4.5-7.5) Urine Specific Reading 1.015 (1.000-1.030) Urine Protein TRACE (NEG) Urine Glucose (UA) NEG (NEG) Urine Ketones NEG (NEG) Urine Occult Blood TRACE (NEG) Urine Nitrite POS (NEG) Urine Bilirubin NEG (NEG) Urine Urobilinogen NEG (NEG) Urine Leukocyte Esterase MODERATE (NEG) Urine RBC 0-4 /hpf (0-4) Urine WBC >30 /hpf (0-5) Urine Epithelial Cells 10-20 /lpf (0-5) Urine Bacteria 2+ (NEG) Urine Hyaline Casts 5-10 /lpf (0-5) Date/Time Source Procedure Growth Status 07/23/17 19:03 Urine , Clean Catch Urine Culture - Final GREATER THAN THREE TYPES OF ORGANISMS... Complete Laboratory results reviewed by me Medications Administered Medications (Trade) Dose Ordered Sig/Major Route Start Time Stop Time Status Last Admin Dose Admin Sodium Chloride 1,000 ml @ 999 mls/hr Q1H1M STAT IV 07/23/17 16:34 07/23/17 17:34 DC 07/23/17 16:54 999 MLS/HR Aspirin (Aspirin Chew) 243 mg NOW STAT PO 07/23/17 18:09 07/23/17 18:11 DC 07/23/17 19:00 243 MG Magnesium Oxide (Mag-Ox Tab) 800 mg ONE STAT PO 07/23/17 18:09 07/23/17 18:11 DC 07/23/17 19:00 800 MG Potassium Chloride (Klor-Con M10) 40 meq STK-MED ONCE .ROUTE 07/23/17 18:51 07/23/17 18:52 DC 07/23/17 18:54 40 MEQ Ceftriaxone Sodium (Rocephin Inj) 1 gm NOW STAT IV 07/23/17 19:50 07/23/17 19:51 DC 07/23/17 20:22 1 GM ECG Per My Interpretation Indication: weakness Rate (beats per minute): 79 Rhythm: other (V-paced) Findings: LBBB, Q waves (inferior, anterior), T-wave inversion (anterior, inferior), other (Wide QRS.) Comparison ECG Date: 05/07/2017 Change: no significant change ED Course 1616: The patient was evaluated in room B8. A complete history and physical exam was performed. 1930: Upon reexamination, the patient was resting comfortably. I discussed the test results and treatment plan with him. The patient will be evaluated for further management. Medical Decision The patient is a 67 year old white male with a past medical history of COPD, A- fib, TIA, HTN, HLD, previous bladder and prostate cancer, urostomy placement, sepsis and DM who presents to the ED with a cc of intermittent neurologic symptoms beginning yesterday. Differential diagnosis: Etiologies such as metabolic, infection, hypo/hyperglycemia, electrolyte abnormalities, cardiac sources, intracerebral event, toxicologic, neurologic, as well as others were entertained. Patient was seen and evaluated at the bedside. Patient has had a fairly complicated medical history. On exam the patient otherwise has questionable neurologic findings. Patient did have some reported slurred speech. On exam the patient has questionable difficulty with raising his right eyebrow and insufflation of the cheeks. Patient has no weakness of the bilateral upper and lower extremities. Questionable left upper extremity drift. Patient apparently has had some difficulty with ambulation and does feel as though he drifts to one side but cannot tell me which side when he walks. Patient is a prior history of TIA and does take aspirin and Plavix. Patient did have blood work, CT brain, EKG, chest x-ray completed. Patient's EKG is unchanged from prior. CT of the brain did show an old left parietal infarct and chronic microvascular changes. Patient's blood work that showed some mild hypocalcemia and hypomagnesemia which was repleted. Patient was given a full dose aspirin. I discussed the patient with the on-call physician given the concern for strokelike symptoms. UA+ for infection, placed on rocephin. This may also be related to patient's symptoms given his age. Medication Reconcilliation Current Medication List: was personally reviewed by me Blood Pressure Screening Patient's blood pressure: Elevated blood pressure Blood pressure disposition: Referred to PCP Consults Time Called: [id number] Consulting Physician: Dr. Alberto Hannah [facility] [place] Returned Call: [id number] Discussed the patient's case. The patient will be evaluated for further treatment and disposition. Impression Primary Impression: Stroke-like symptom Additional Impressions: Hypocalcemia Hypomagnesemia UTI (urinary tract infection) Scribe Attestation The scribe's documentation has been prepared under my direction and personally reviewed by me in its entirety. I confirm that the note above accurately reflects all work, treatment, procedures, and medical decision making performed by me. Departure Information Dispostion Being Evaluated By Hospitalist Referrals No Doctor, Assigned (PCP) Patient Instructions My [facility] Stroke History Time Last Known Well 0700 Stroke t-PA Criteria Reviewed Does NOT meet criteria for t-PA Reason t-PA Not Given Treatment not indicated (outside time window) Problem Qualifiers Additional Impressions: UTI (urinary tract infection) Urinary tract infection type: acute cystitis Hematuria presence: without hematuria Qualified Codes: N30.00 - Acute cystitis without hematuria
[2017-07-23] MEDS ORDERED: MAGNESIUM OXIDE 400 MG TAB PO STA (18:09)
[2017-07-23] MEDS ORDERED: ASPIRIN 324 MG CHEW PO STA (18:09)
[2017-07-23] MEDS ORDERED: POTASSIUM CHLORIDE 20 MEQ TABCR PO STA (18:09)
[2017-07-23] MEDS ORDERED: POTASSIUM CHLORIDE 10 MEQ TABCR ONE (18:51)
[2017-07-23] MEDS ORDERED: CEFTRIAXONE SOD INJ 1 GM ADDVIAL IV STA (19:50)
--- NOTE | 2017-07-23 20:38 | History and Physical ---
History & Physical Date & Time of Service: Jul 23, 2017 at 20:38 Chief Complaint: Dizzy, Weak, Loss Of Balance- Hx Of Mini Stroke Primary Care Physician: Sean Titus D.O. History of Present Illness Source: patient The patient is a 67-year-old male who presents to the emergency department with main complaint of generalized weakness that initially began upon waking up in the morning yesterday, improved somewhat as the day went on, but did not EYES: Pupils round equal and react to light, extraocular movements full, no injection.. When he woke again this morning symptoms were present and worse, and he presents to emergency department for assessment. He has noticed increased ostomy output. He reports that as he was walking, he had to hold on something for fear of falling. He has had no previous occurrence of these symptoms. Past Medical/Surgical History Medical Problems: (1) Acute kidney injury Status: Resolved (2) Acute on chronic diastolic heart failure Status: Chronic (3) Atrial fibrillation Status: Chronic (4) Benign hypertension Status: Chronic (5) Chronic kidney disease stage 3 Status: Chronic (6) Chronic obstructive lung disease Status: Chronic (7) Diabetes mellitus Status: Chronic (8) Hyperlipidemia Status: Chronic (9) Sepsis Status: Resolved (10) Staghorn calculus Status: Chronic (11) Transitional cell carcinoma of bladder Status: Resolved (12) UTI (urinary tract infection) Status: Resolved Surgical Problems: (1) History of urostomy Status: Resolved Family History FH: coronary artery disease Social History Smoking Status: Never Smoker Smokeless Tobacco Use: No Alcohol Use: none (chrissy chrissy chrissy) Drug Use: none Marital Status: Housing status: lives with family Occupational Status: retired Immunizations History of Influenza Vaccine: N/A Influenza Vaccine Date: Apr 02, 2010 History of Tetanus Vaccine?: Yes Tetanus Immunization Date: Jun 02, 2001 History of Pneumococcal: Unknown Pneumococcal Date: Mar 29, 2012 History of Hepatitis B Vaccine: Unknown Multi-Drug Resistant Organisms History of MDRO: No Allergies Coded Allergies: Codeine (Verified Adverse Reaction, Mild, "trips me out", 07/23/17) CONFUSION Promethazine (Verified Adverse Reaction, Unknown, UNCONTROLLED MUSCLE MOVEMENTS, 07/23/17) Home Medications Scheduled Allopurinol (Zyloprim), 100 MG PO DAILY Aspirin Enteric Coated (Ecotrin Or Generic), 81 MG PO DAILY Atorvastatin (Lipitor), 80 MG PO QPM Budesonide/Formoterol Fumarate (Symbicort 80/4.5 Inhaler), 1 PUFF INH BID Buspirone Hcl (Buspirone Hcl), 20 MG PO BID Cholecalciferol (Vitamin D 1000 Unit), 2,000 INTER.UNIT PO DAILY Clopidogrel (Plavix), 75 MG PO DAILY Cyanocobalamin (B-12), 2,500 MCG PO DAILY Furosemide (Lasix), 40 MG PO BID Gabapentin (Neurontin), 300 MG PO TID Glipizide (Glucotrol), 5 MG PO DAILY Loratadine (Claritin), 10 MG PO DAILY Melatonin (Melatonin), 10 MG PO HS Metoprolol Tartrate (Lopressor) (Lopressor), 50 MG PO BID Multiple Vitamins W/ Minerals (Preservision Areds 2), 1 CAP PO DAILY Pantoprazole Sodium (Protonix), 40 MG PO DAILY Paroxetine (Paxil), 40 MG PO QPM Spironolactone (Aldactone), 25 MG PO DAILY Trazodone Hcl (Trazodone), 100 MG PO HS Scheduled PRN Clonazepam (Klonopin), 0.5 MG PO DAILY PRN for Anxiety Ipratropium-Albuterol (Duoneb), 1 TREATMENT INH QID PRN for SOB/Wheezing Nitroglycerin (Nitrostat), 0.3 MG UT UD PRN for Chest Pain Review of Systems The patient denies chest pain, palpitations, shortness of breath, dyspnea on exertion, cough, lower extremity swelling, sore throat, fevers, chills, sweats, nausea, vomiting, constipation, abdominal pain, pelvic pain, blood in urine or stool, dysuria, urinary frequency or urgency, memory loss, loss of consciousness, rash, abnormal bruising or bleeding, focal weakness, numbness or tingling in arms or legs, generalized arthralgias or myalgias, back or neck pain, or night sweats. The review of systems is otherwise negative other than for that already noted above, and at least 10 systems have been reviewed. Physical Exam Vital Signs Date Time Temp Pulse Resp B/P (MAP) Pulse Ox O2 Delivery O2 Flow Rate FiO2 07/23/17 20:23 60 12 169/81 94 Room Air 07/23/17 19:04 94 Room Air 07/23/17 19:01 175/88 07/23/17 19:00 60 15 07/23/17 18:31 158/82 07/23/17 18:30 60 18 92 Room Air 07/23/17 18:01 147/64 07/23/17 18:00 61 22 93 07/23/17 17:30 60 15 159/81 93 Room Air 07/23/17 17:22 61 16 144/77 94 Room Air 07/23/17 16:54 61 18 159/72 95 Room Air 07/23/17 16:54 61 07/23/17 16:21 97 Room Air 07/23/17 15:56 36.7 62 18 149/85 96 Room Air The patient is awake, alert and oriented 3, well developed and well nourished, normocephalic and atraumatic, lying in bed and in no acute distress. HEENT--PERRL, EOMI, mucous membranes and oropharynx dry, face is mildly flushed. Neck--supple. No JVD. No bruits. Thyroid normal, trachea midline, no adenopathy. Heart--normal S1 and S2. No murmurs, rubs or gallops. Lungs--clear bilaterally, no respiratory distress, no accessory muscle use. Abdomen--normal bowel sounds and soft. Nontender. Nondistended, no hernias or masses, no organomegaly. Extremities--no cyanosis or clubbing. No edema. There are good distal pulses b/ l. Dermatologic--fascial flush as above, skin looks mildly dry in general. Neurologic--cranial nerves II through XII grossly intact. Rheumatologic--normal range of motion. Psychiatric--normal affect. Diagnostics Laboratory Results Results Past 24 Hours Test 07/23/17 16:10 07/23/17 19:03 Range/Units White Blood Count 6.45 4.8-10.8 K/uL Red Blood Count 4.58 4.7-6.1 M/uL Hemoglobin 14.6 14.0-18.0 g/dL Hematocrit 42.2 42-52 % Mean Corpuscular Volume 92.1 80-100 fL Mean Corpuscular Hemoglobin 31.9 25-34 pg Mean Corpuscular Hemoglobin Concent 34.6 32-36 g/dl Platelet Count 151 130-400 K/uL Mean Platelet Volume 12.0 7.4-10.4 fL Neutrophils (%) (Auto) 63.7 % Lymphocytes (%) (Auto) 24.2 % Monocytes (%) (Auto) 8.4 % Eosinophils (%) (Auto) 2.8 % Basophils (%) (Auto) 0.6 % Neutrophils # (Auto) 4.11 1.4-6.5 K/uL Lymphocytes # (Auto) 1.56 1.2-3.4 K/uL Monocytes # (Auto) 0.54 0.11-0.59 K/uL Eosinophils # (Auto) 0.18 0-0.5 K/uL Basophils # (Auto) 0.04 0-0.2 K/uL RDW Standard Deviation 49.9 36.4-46.3 fL RDW Coefficient of Variation 14.8 11.5-14.5 % Immature Granulocyte % (Auto) 0.3 % Immature Granulocyte # (Auto) 0.02 0.00-0.02 K/uL Prothrombin Time 10.3 9.0-12.0 SECONDS Prothromb Time International Ratio 1.0 0.9-1.1 Activated Partial Thromboplast Time 26.1 21.0-31.0 SECONDS Partial Thromboplastin Ratio 1.0 Sodium Level 138 136-145 mmol/L Potassium Level 3.8 3.5-5.1 mmol/L Chloride Level 103 98-107 mmol/L Carbon Dioxide Level 28 21-32 mmol/L Anion Gap 7.0 3-11 mmol/L Blood Urea Nitrogen 25 7-18 mg/dl Creatinine 1.75 0.60-1.40 mg/dl Est Creatinine Clear Calc Drug Dose 50.2 ml/min Estimated GFR () 45.0 Estimated GFR (Non- 38.9 BUN/Creatinine Ratio 14.1 10-20 Random Glucose 220 70-99 mg/dl Calcium Level 8.4 8.5-10.1 mg/dl Magnesium Level 1.7 1.8-2.4 mg/dl Total Bilirubin 0.7 0.2-1 mg/dl Direct Bilirubin 0.2 0-0.2 mg/dl Aspartate Amino Transf (AST/SGOT) 26 15-37 U/L Alanine Aminotransferase (ALT/SGPT) 38 12-78 U/L Alkaline Phosphatase 106 45-117 U/L Troponin I < 0.015 0-0.045 ng/ml Pro-B-Type Natriuretic Peptide 1715 0-900 pg/ml Total Protein 7.2 6.4-8.2 gm/dl Albumin 3.7 3.4-5.0 gm/dl Lipase 372 73-393 U/L Thyroid Stimulating Hormone (TSH) 3.980 0.300-4.500 uIu/ml Urine Color YELLOW Urine Appearance CLOUDY CLEAR Urine pH 5.5 4.5-7.5 Urine Specific [place] 1.015 1.000-1.030 Urine Protein TRACE NEG Urine Glucose (UA) NEG NEG Urine Ketones NEG NEG Urine Occult Blood TRACE NEG Urine Nitrite POS NEG Urine Bilirubin NEG NEG Urine Urobilinogen NEG NEG Urine Leukocyte Esterase MODERATE NEG Urine RBC 0-4 0-4 /hpf Urine WBC >30 0-5 /hpf Urine Epithelial Cells 10-20 0-5 /lpf Urine Bacteria 2+ NEG Urine Hyaline Casts 5-10 0-5 /lpf Microbiology Results 07/23/17 Urine Culture, Received Pending Diagnostic Radiology Patient Name: ARIELLA SAMPSON Unit Number: [id number] Dictated: 07/23/171723 Transcribed: 07/23/171723 [facility] Printed Date/Time: [~ rep prt dt]/[~ rep prt tm] [~ rep ct labl] - [~ rep ct ivnm] [facility] [place] [address] Dictated: 07/23/171723 Transcribed: 07/23/171723 [facility] Printed Date/Time: [~ rep prt dt]/[~ rep prt tm] [~ rep ct labl] - [~ rep ct ivnm] [~ rep ct add3]] HEAD CT NONCONTRAST CT DOSE: 712.55 mGy.cm HISTORY: EVALUATE WEAKNESS TECHNIQUE: Multiaxial CT images of the head were performed without the use of intravenous contrast. Automated exposure control was utilized for this study. A dose lowering technique was utilized adhering to the principles of ALARA. Comparison: Head CT 01/08/2014. Findings: The paranasal sinuses and mastoid air cells are clear. The calvarium and skull base are intact. There is no mass, hematoma, midline shift, acute infarct. White matter hypodensity is nonspecific but suggestive of microvascular ischemic change. The ventricles and sulci demonstrate mild age-related involutional changes. Old left parietal lobe infarct. Impression: No acute intracranial abnormality. Atrophy and microvascular ischemic changes. Old left parietal lobe infarct. Electronically signed by: James Wilson M.D. 07/23/2017 5:26 PM Dictated Date/Time: 07/23/2017 5:24 PM The status of this report is Signed. Draft = Not yet reviewed or approved by Radiologist. Signed = Reviewed and approved by Radiologist. <AttendingPhy></AttendingPhy> <FamilyPhy>Sean Titus D.O.</FamilyPhy> < PrimaryPhy>Sean Titus D.O.</PrimaryPhy> <UnitNumber>[id number]</UnitNumber > <VisitNumber>[id number]</VisitNumber> <PatientName>ARIELLA SAMPSON</PatientName > <DateOfBirth>1950</DateOfBirth> <Location>[facility]</Location> <ServiceDate> 07/23/17</ServiceDate> <MNE>ESINDI</MNE> <OrderingPhy>Aditya Butcher M.D.</ OrderingPhy> <OrderingPhyMNE>f rep ord dr beyer</OrderingPhyMNE> <DictatingPhyMNE> f rep dict dr beyer</DictatingPhyMNE> <CCListMNE>f rep ct mne</CCListMNE> < AdmittingPhyMNE>f pt admit dr beyer</AdmittingPhyMNE> <AttendingPhyMNE>f pt attend dr beyer</AttendingPhyMNE> <ConsultingPhyMNE>f pt consult dr beyer</ConsultingPhyMNE> <FamilyPhyMNE>f pt fam dr beyer</FamilyPhyMNE> <OtherPhyMNE>f pt other dr beyer</OtherPhyMNE> < PrimaryPhyMNE>f pt prim care dr beyer</PrimaryPhyMNE> <ReferringPhyMNE>f pt referring dr beyer</ReferringPhyMNE> Patient Name: ADRIÁNARIELLA J Unit Number: [id number] Dictated: 07/23/17 1653 Transcribed: 07/23/171652 [facility] Printed Date/Time: [~ rep prt dt]/[~ rep prt tm] [~ rep ct labl] - [~ rep ct ivnm] [facility] Radiology Department [place], [place] [id number] Dictated: 07/23/171652 Transcribed: 07/23/171652 [facility] Printed Date/Time: [~ rep prt dt]/[~ rep prt tm] [~ rep ct labl] - [~ rep ct ivnm] SINGLE VIEW CHEST CLINICAL HISTORY: Generalized weakness. FINDINGS: An AP, portable, upright chest radiograph is compared to study dated 05/07/2017. The examination is degraded by portable technique and patient rotation. A 2-lead cardiac pacemaker is unchanged in position and partially obscures the left apex. The heart is enlarged and there is atherosclerotic calcification of the thoracic aorta. The pulmonary vasculature is noncongested. Chronic interstitial thickening is unchanged. There is mild bibasilar atelectasis. No airspace consolidation is seen typical for pneumonia and there is no large pleural effusion. No pneumothorax is seen. The skeletal structures are osteopenic. The bony thorax is grossly intact. IMPRESSION: 1. Cardiomegaly and cardiac pacemaker. There is no radiographic evidence of congestive failure. 2. No airspace consolidation or pleural effusion is identified. Electronically signed by: Asaf Rose M.D. 07/23/2017 4:54 PM Dictated Date/Time: 07/23/2017 4:53 PM The status of this report is Signed. Draft = Not yet reviewed or approved by Radiologist. Signed = Reviewed and approved by Radiologist. <AttendingPhy></AttendingPhy> <FamilyPhy>Sean Titus D.O.</FamilyPhy> < PrimaryPhy>Sean Titus D.O.</PrimaryPhy> <UnitNumber>[id number]</UnitNumber > <VisitNumber>[id number]</VisitNumber> <PatientName>ADRIÁNARIELLA Danis</PatientName > <DateOfBirth>1950</DateOfBirth> <Location>[facility]</Location> <ServiceDate> 07/23/17</ServiceDate> <MNE>ESINDI</MNE> <OrderingPhy>Aditya Butcher M.D.</ OrderingPhy> <OrderingPhyMNE>f rep ord dr beyer</OrderingPhyMNE> <DictatingPhyMNE> f rep dict dr beyer</DictatingPhyMNE> <CCListMNE>f rep ct rone</CCListMNE> < AdmittingPhyMNE>f pt admit dr beyer</AdmittingPhyMNE> <AttendingPhyMNE>f pt attend dr beyer</AttendingPhyMNE> <ConsultingPhyMNE>f pt consult dr beyer</ConsultingPhyMNE> <FamilyPhyMNE>f pt fam dr beyer</FamilyPhyMNE> <OtherPhyMNE>f pt other dr beyer</OtherPhyMNE> < PrimaryPhyMNE>f pt prim care dr beyer</PrimaryPhyMNE> <ReferringPhyMNE>f pt referring dr beyer</ReferringPhyMNE> EKG EKG shows ventricular paced rhythm at 79 bpm, there are no acute ST-T changes. Impression Assessment and Plan The patient is a 67-year-old male past medical history including COPD, atrial fibrillation, TIA, hypertension, hyperlipidemia, bladder cancer, prostate cancer , urostomy placement, diabetes mellitus and sepsis, who presents to the emergency department with intermittent symptoms of ambulatory dysfunction, loss of balance, generalized weakness and fatigue. Sepsis secondary to UTI/bladder cancer/prostate cancer/urostomy placement-- Admit to medical floor. Placed on ceftriaxone 1 g IV daily. He did receive 1 L of normal saline in the ED along with 80 mEq of potassium chloride and magnesium 800 mg 1. Follow urine culture and sensitivity Hypertension/chronic kidney disease stage III/atrial fibrillation/chronic diastolic heart failure-- Continue aspirin 81 mg daily, Plavix 75 mg daily, and metoprolol tartrate 50 mg p.o. twice daily. Hold furosemide 40 mg p.o. twice daily and spinal lactone 25 mg daily. Repeat CBC with differential, BMP and magnesium level in the a.m. Diabetes mellitus-- Hold glipizide [address] on Accu-Cheks before meals and at bedtime with NovoLog coverage scale Check a hemoglobin A1c. Anxiety with depression-- Continue buspirone 20 mg p.o. twice daily, fluoxetine 40 mg in the evening and trazodone 100 mg p.o. at bedtime. COPD-- Continue Symbicort 80/4.5, 1 puff twice daily and duo nebs 4 times daily as needed. Hyperlipidemia-- Continue atorvastatin 80 mg p.o. in the evening Gout-- Continue allopurinol 100 mg p.o. daily. Vitamin B12 deficiency-- Continue cyanocobalamin 2500 mcg p.o. daily. GERD-- Continue pantoprazole 40 mg p.o. daily. Seasonal allergy-- Continue loratadine 10 mg p.o. daily Level of Care Med/Surg Advanced Directives Existing Advance Directive: No Existing Living Will: No Existing Power of Sand Mixer Machine: No Resuscitation Status FULL RESUSCITATION VTE Prophylaxis VTE Risk Assessment Done? Y/N: Yes Risk Level: Moderate Given or contraindicated: Unfractionated heparin SQ, SCD's Social Service Consult None Apply
[2017-07-23] MEDS ORDERED: POLYETHYLENE (MIRALAX) 17 GM PACK PO PRN (20:45)
[2017-07-23] MEDS ORDERED: ALBUT/IPRATROP 3MG/0.5MG NEB 3 ML VIAL INH PRN (20:45)
[2017-07-23] MEDS ORDERED: MAGNESIUM HYDROXIDE SUSP 30 ML UDC PO PRN (20:45)
[2017-07-23] MEDS ORDERED: ALUMINUM/MAGNESIUM/SIMETH (MAALOX MAX) 30 ML UDC PO PRN (20:45)
[2017-07-23] MEDS ORDERED: CLONAZEPAM 1 MG TAB PO PRN (20:45)
[2017-07-23] MEDS ORDERED: BUDESONIDE/FORMOTEROL FUMARATE 80/4.5 60 PUFFS/INHALER INH SCH (21:00)
[2017-07-23 22:55] VITALS: BP 174/88; PULSE 64; TEMP 36.7; O2SAT 95; BMI 40.2
[2017-07-23] MEDS: ATORVASTATIN 40 MG TAB PO SCH (23:00)
[2017-07-23] MEDS: METOPROLOL TARTRATE 50 MG TAB PO SCH (23:00)
[2017-07-23] MEDS: TRAZODONE HCL 100 MG TAB PO SCH (23:00)
[2017-07-23] MEDS: HEPARIN SOD 5000 UNIT/0.5 ML CARP SQ SCH (23:00)
[2017-07-23] MEDS ORDERED: CLONAZEPAM 0.5 MG TAB PO PRN (23:15)
[2017-07-24] VITALS (11 sets, daily range): BP systolic 156–205; BP diastolic 76–98; PULSE 60–68; TEMP 36.4–36.6; O2SAT 91–98; Ht 172.7 cm; Wt 120.0 kg
[2017-07-24] MEDS ORDERED: ONDANSETRON 8MG OD TAB PO PRN (05:00)
[2017-07-24 08:19] LABS: HEMOGLOBIN A1C 8.8 % (4.5-5.6)
[2017-07-24] MEDS: CYANOCOBALAMIN 500 MCG TAB (VIT B-12) PO SCH (09:16)
[2017-07-24] MEDS: ALLOPURINOL 100 MG TAB PO SCH (09:16)
[2017-07-24] MEDS: PANTOprazole SOD 40 MG TAB PO SCH (09:17)
[2017-07-24] MEDS: CHOLECALCIFEROL 1000 INTER.UNIT TAB PO SCH (09:19)
[2017-07-24] MEDS: LORATADINE 10 MG TAB PO SCH (09:20)
[2017-07-24] MEDS: GABAPENTIN 300 MG CAP PO SCH ×3 (09:20→19:24)
[2017-07-24] MEDS: METOPROLOL TARTRATE 50 MG TAB PO SCH ×2 (09:20→19:35)
[2017-07-24] MEDS: CLOPIDOGREL BISULFATE 75 MG TAB PO SCH (09:21)
[2017-07-24] MEDS: CEROVITE ADV FORMULA TAB PO SCH (09:21)
[2017-07-24] MEDS: BUDESONIDE/FORMOTEROL FUMARATE 80/4.5 60 PUFFS/INHALER INH SCH ×2 (09:22→19:20)
[2017-07-24] MEDS: ASPIRIN 81 MG ECTAB PO SCH (09:52)
[2017-07-24] MEDS: HEPARIN SOD 5000 UNIT/0.5 ML CARP SQ SCH ×2 (13:35→22:18)
[2017-07-24] MEDS ORDERED: GLUCAGON FOR INJ 1 MG VIAL SQ PRN (14:00)
[2017-07-24] MEDS ORDERED: GLUCOSE 10 TABS/TUBE PO PRN (14:00)
[2017-07-24] MEDS ORDERED: GLUCOSE 40% GEL 15 GM TUBE PO PRN (14:00)
[2017-07-24] MEDS ORDERED: DEXTROSE 50% 50 ML SYR IV PRN (14:00)
--- NOTE | 2017-07-24 15:12 | Hospitalist Progress Note ---
Hospitalist Progress Note Date of Service Jul 24, 2017. (Laura Marquez .JULIUS) Subjective Pt evaluation today including: conversation w/ patient, conversation w/ family , physical exam, chart review, lab review, review of inpatient medication list Mr. Pierce is unsure if his weakness is any better today but otherwise he has no complaints. He is eating and drinking well. He has felt dizzy when standing occasionally ROS Constitutional: no chills, aches, sweats or fever Respiratory: no sob,cough, sputum, or wheezing Cardiac: no chest pain, palpitations, edema, orthopnea GI: no abdominal pain, nausea, vomiting, diarrhea or constipation : no dysuria or hesitancy Extremities: no joint pain or weakness Skin: no rash All other systems reviewed and negative (Laura Marquez CRNP) Medications Medications Administered Medications (Trade) Dose Ordered Sig/Major Route Start Time Stop Time Status Last Admin Dose Admin Sodium Chloride 1,000 ml @ 999 mls/hr Q1H1M STAT IV 07/23/17 16:34 07/23/17 17:34 DC 07/23/17 16:54 999 MLS/HR Aspirin (Aspirin Chew) 243 mg NOW STAT PO 07/23/17 18:09 07/23/17 18:11 DC 07/23/17 19:00 243 MG Magnesium Oxide (Mag-Ox Tab) 800 mg ONE STAT PO 07/23/17 18:09 07/23/17 18:11 DC 07/23/17 19:00 800 MG Potassium Chloride (Klor-Con M10) 40 meq STK-MED ONCE .ROUTE 07/23/17 18:51 07/23/17 18:52 DC 07/23/17 18:54 40 MEQ Ceftriaxone Sodium (Rocephin Inj) 1 gm NOW STAT IV 07/23/17 19:50 07/23/17 19:51 DC 07/23/17 20:22 1 GM Heparin Sodium (Porcine) (Heparin Sq 5000 Unit/0.5ml) 5,000 unit Q12H SQ 07/23/17 23:00 08/22/17 22:59 07/24/17 13:35 5,000 UNIT Allopurinol (Zyloprim Tab) 100 mg DAILY PO 07/24/17 08:00 08/23/17 08:59 07/24/17 09:16 100 MG Aspirin (Ecotrin Tab) 81 mg DAILY PO 07/24/17 08:00 08/23/17 08:59 07/24/17 09:52 81 MG Cholecalciferol (Vitamin D Tab) 2,000 inter.unit DAILY PO 07/24/17 08:00 08/23/17 08:59 07/24/17 09:19 2,000 INTER.UNIT Clopidogrel Bisulfate (plAVix TAB) 75 mg DAILY PO 07/24/17 08:00 08/23/17 08:59 07/24/17 09:21 75 MG Gabapentin (Neurontin Cap) 300 mg TID PO 07/24/17 08:00 08/23/17 08:59 07/24/17 13:35 300 MG Loratadine (Claritin Tab) 10 mg DAILY PO 07/24/17 08:00 08/23/17 08:59 07/24/17 09:20 10 MG Metoprolol Tartrate (Lopressor Tab) 50 mg BID PO 07/23/17 23:00 08/22/17 22:59 07/24/17 09:20 50 MG Pantoprazole Sodium (Protonix Tab) 40 mg DAILY PO 07/24/17 08:00 08/23/17 08:59 07/24/17 09:17 40 MG Buspirone HCl (Buspar Tab) 20 mg BID PO 07/23/17 23:00 08/22/17 22:59 07/24/17 09:19 20 MG Cyanocobalamin (Vitamin B-12 Tab) 2,500 mcg QAM PO 07/24/17 08:00 08/23/17 08:59 07/24/17 09:16 2,500 MCG Multivitamins/ Minerals (Multivitamin W/ Minerals Tab) 1 tab QAM PO 07/24/17 08:00 08/23/17 08:59 07/24/17 09:21 1 TAB Budesonide/ Formoterol Fumarate (Symbicort 80/ 4.5 Inh) 1 puffs BID INH 07/24/17 08:00 08/22/17 20:59 07/24/17 09:22 1 PUFFS (Laura Marquez CRNP) Objective Vital Signs Date Time Temp Pulse Resp B/P (MAP) Pulse Ox O2 Delivery O2 Flow Rate FiO2 2/22/18 08:15 Room Air 07/24/17 08:01 36.6 63 19 159/88 (111) 98 Nasal Cannula 2.0 07/24/17 00:22 156/76 (102) 07/23/17 22:55 36.7 64 24 174/88 95 Room Air 07/23/17 22:39 61 25 130/72 93 07/23/17 22:31 130/72 07/23/17 22:30 61 25 93 Room Air 07/23/17 22:01 158/86 07/23/17 22:00 63 17 93 Room Air 07/23/17 21:32 170/88 07/23/17 21:30 61 17 92 Room Air 07/23/17 21:12 76 07/23/17 21:01 158/92 07/23/17 21:00 64 17 91 Room Air 07/23/17 20:31 161/108 07/23/17 20:30 60 17 93 Room Air 07/23/17 20:23 60 12 169/81 94 Room Air 07/23/17 19:04 94 Room Air 07/23/17 19:01 175/88 07/23/17 19:00 60 15 07/23/17 18:31 158/82 07/23/17 18:30 60 18 92 Room Air 07/23/17 18:01 147/64 07/23/17 18:00 61 22 93 07/23/17 17:30 60 15 159/81 93 Room Air 07/23/17 17:22 61 16 144/77 94 Room Air 07/23/17 16:54 61 18 159/72 95 Room Air 07/23/17 16:54 61 07/23/17 16:21 97 Room Air 07/23/17 15:56 36.7 62 18 149/85 96 Room Air (Laura Marquez, JULIUS) Physical Exam Notes: General: no distress Eyes: normal inspection, PERLL Respiratory: chest non tender, clear to auscultation, normal breath sounds, no respiratory distress, no accessory muscle use Cardiac: regular rate and rhythm, no rub or gallop, no murmur, no edema, no jvd GI/: active bowel sounds, no abd pain or tenderness, soft, non distended Extremities: normal range of motion, normal strength, non tender Neuro/Psych: alert and oriented x 3, normal mood and affect Skin: normal color, dry (Laura Marquez ., AQUACULTURE WORKER) Laboratory Results Last 24 Hours Test 07/23/17 16:10 07/23/17 19:03 07/24/17 06:43 White Blood Count 6.45 K/uL Red Blood Count 4.58 M/uL Hemoglobin 14.6 g/dL Hematocrit 42.2 % Mean Corpuscular Volume 92.1 fL Mean Corpuscular Hemoglobin 31.9 pg Mean Corpuscular Hemoglobin Concent 34.6 g/dl Platelet Count 151 K/uL Mean Platelet Volume 12.0 fL Neutrophils (%) (Auto) 63.7 % Lymphocytes (%) (Auto) 24.2 % Monocytes (%) (Auto) 8.4 % Eosinophils (%) (Auto) 2.8 % Basophils (%) (Auto) 0.6 % Neutrophils # (Auto) 4.11 K/uL Lymphocytes # (Auto) 1.56 K/uL Monocytes # (Auto) 0.54 K/uL Eosinophils # (Auto) 0.18 K/uL Basophils # (Auto) 0.04 K/uL RDW Standard Deviation 49.9 fL RDW Coefficient of Variation 14.8 % Immature Granulocyte % (Auto) 0.3 % Immature Granulocyte # (Auto) 0.02 K/uL Prothrombin Time 10.3 SECONDS Prothromb Time International Ratio 1.0 Activated Partial Thromboplast Time 26.1 SECONDS Partial Thromboplastin Ratio 1.0 Sodium Level 138 mmol/L Potassium Level 3.8 mmol/L Chloride Level 103 mmol/L Carbon Dioxide Level 28 mmol/L Anion Gap 7.0 mmol/L Blood Urea Nitrogen 25 mg/dl Creatinine 1.75 mg/dl Est Creatinine Clear Calc Drug Dose 50.2 ml/min Estimated GFR () 45.0 Estimated GFR (Non- 38.9 BUN/Creatinine Ratio 14.1 Random Glucose 220 mg/dl Calcium Level 8.4 mg/dl Magnesium Level 1.7 mg/dl Total Bilirubin 0.7 mg/dl Direct Bilirubin 0.2 mg/dl Aspartate Amino Transf (AST/SGOT) 26 U/L Alanine Aminotransferase (ALT/SGPT) 38 U/L Alkaline Phosphatase 106 U/L Troponin I < 0.015 ng/ml Pro-B-Type Natriuretic Peptide 1715 pg/ml Total Protein 7.2 gm/dl Albumin 3.7 gm/dl Lipase 372 U/L Thyroid Stimulating Hormone (TSH) 3.980 uIu/ml Hepatitis C Antibody Screen NEG Urine Color YELLOW Urine Appearance CLOUDY Urine pH 5.5 Urine Specific [place] 1.015 Urine Protein TRACE Urine Glucose (UA) NEG Urine Ketones NEG Urine Occult Blood TRACE Urine Nitrite POS Urine Bilirubin NEG Urine Urobilinogen NEG Urine Leukocyte Esterase MODERATE Urine RBC 0-4 /hpf Urine WBC >30 /hpf Urine Epithelial Cells 10-20 /lpf Urine Bacteria 2+ Urine Hyaline Casts 5-10 /lpf Estimated Average Glucose 206 mg/dl Hemoglobin A1c 8.8 % (Laura Marquez, JULIUS) Assessment and Plan The patient is a 67-year-old male past medical history including COPD, atrial fibrillation, TIA, hypertension, hyperlipidemia, bladder cancer, prostate cancer , urostomy placement, diabetes mellitus and sepsis, who presents to the emergency department with intermittent symptoms of ambulatory dysfunction, loss of balance, generalized weakness and fatigue. Sepsis secondary to UTI/bladder cancer/prostate cancer/urostomy placement - sepsis ruled out, patient is not febrile, does not have an elevated WBC count , VSS, no lactic acid was drawn on admission - Placed on ceftriaxone 1 g IV daily - can continue for now - Urine culture contaminated - recollect Weakness - PT/OT evals - Orthostatics Hypertension/chronic kidney disease stage III/atrial fibrillation/chronic diastolic heart failure/hx TIA-- - Continue aspirin 81 mg daily, Plavix 75 mg daily, and metoprolol tartrate 50 mg p.o. twice daily, statin. - restart lasix, spironolactone tomorrow if kidney function back at baseline Diabetes mellitus-- - Hold glipizide 5 mg daily. - BSGs ac & hs, ss - A1c 8.8 Anxiety with depression-- Continue buspirone 20 mg p.o. twice daily, fluoxetine 40 mg in the evening and trazodone 100 mg p.o. at bedtime. COPD-- Continue Symbicort 80/4.5, 1 puff twice daily and duo nebs 4 times daily as needed. Hyperlipidemia-- Continue atorvastatin 80 mg p.o. in the evening Gout-- Continue allopurinol 100 mg p.o. daily. Vitamin B12 deficiency-- Continue cyanocobalamin 2500 mcg p.o. daily. GERD-- Continue pantoprazole 40 mg p.o. daily. Seasonal allergy-- Continue loratadine 10 mg p.o. daily (Laura Marquez ., JULIUS) MANAGER CARGO Physician Supervision Note: I interviewed and examined the patient. Discussed with Laura Marquez MANAGER CARGO and agree with findings and plan as documented in the note. Any exceptions or clarifications are listed here: None this pt is doing much better participating in PT/OT, he has a urostomy and will have chronically abnormal Ua vitals are stable lungs are clear PT may have been dehydrated from a viral illness , will hydrate and re evaluate with PT/Ot in the am diabetes and copd are stable Documented By: Gamaliel Zarco (Gamaliel Zarco M.D.)
[2017-07-24] MEDS: HydrALAZINE HCL 20 MG/ML VIAL IV. PRN (16:56)
[2017-07-24] MEDS: INSULIN ASPART 100 UNITS/ML 3 ML PEN SC SCH ×2 (18:01→21:03)
[2017-07-24] MEDS: CEFTRIAXONE SOD INJ 1 GM in DEXTROSE 5% ADD-VANTAGE 50ML 50 ML IV SCH (19:18)
[2017-07-24] MEDS: PAROXETINE 20 MG TAB PO SCH (21:03)
[2017-07-24] MEDS: ATORVASTATIN 40 MG TAB PO SCH (21:04)
[2017-07-24] MEDS: TRAZODONE HCL 100 MG TAB PO SCH (21:04)
[2017-07-24] MEDS: ACETAMINOPHEN 325 MG TAB PO PRN (22:29)
[2017-07-25] VITALS (12 sets, daily range): BP systolic 144–194; BP diastolic 75–109; PULSE 60–99; TEMP 36.3–36.7; O2SAT 96–100
[2017-07-25 07:28] LABS: BASO % 0.8 %; BASO ABS # 0.05 K/uL (0-0.2); EOS % 2.8 %; EOS ABS # 0.17 K/uL (0-0.5); HEMATOCRIT 41.2 % (42-52); HEMOGLOBIN 14.3 g/dL (14.0-18.0); IG# 0.02 K/uL (0.00-0.02); LYMPH % 18.9 %; LYMPH ABS # 1.15 K/uL (1.2-3.4); MEAN CELL VOLUME 92.2 fL (80-100); MEAN CORPUSCULAR HGB CONC 34.7 g/dl (32-36); MEAN PLATELET VOLUME 11.7 fL (7.4-10.4); MONO % 8.7 %; MONO ABS # 0.53 K/uL (0.11-0.59); NEUT % 68.5 %; NEUT ABS # 4.17 K/uL (1.4-6.5); PLATELET COUNT 139 K/uL (130-400); RED CELL DISTRIBUTION WIDTH CV 14.8 % (11.5-14.5); RED CELL DISTRIBUTION WIDTH SD 49.5 fL (36.4-46.3); WHITE BLOOD COUNT 6.09 K/uL (4.8-10.8)
[2017-07-25] MEDS: ACETAMINOPHEN 325 MG TAB PO PRN ×2 (07:35→15:55)
[2017-07-25 07:56] LABS: CALCIUM 9.3 mg/dl (8.5-10.1); CREATININE 1.48 mg/dl (0.60-1.40); POTASSIUM 4.1 mmol/L (3.5-5.1)
[2017-07-25] MEDS: METOPROLOL TARTRATE 50 MG TAB PO SCH ×2 (08:03→19:56)
[2017-07-25] MEDS: PANTOprazole SOD 40 MG TAB PO SCH (08:03)
[2017-07-25] MEDS: ALLOPURINOL 100 MG TAB PO SCH (08:03)
[2017-07-25] MEDS: GABAPENTIN 300 MG CAP PO SCH ×3 (08:04→19:57)
[2017-07-25] MEDS: CHOLECALCIFEROL 1000 INTER.UNIT TAB PO SCH (08:04)
[2017-07-25] MEDS: ASPIRIN 81 MG ECTAB PO SCH (08:04)
[2017-07-25] MEDS: CEROVITE ADV FORMULA TAB PO SCH (08:05)
[2017-07-25] MEDS: CLOPIDOGREL BISULFATE 75 MG TAB PO SCH (08:06)
[2017-07-25] MEDS: CYANOCOBALAMIN 500 MCG TAB (VIT B-12) PO SCH (08:07)
[2017-07-25] MEDS: LORATADINE 10 MG TAB PO SCH (08:07)
[2017-07-25] MEDS: BUDESONIDE/FORMOTEROL FUMARATE 80/4.5 60 PUFFS/INHALER INH SCH ×2 (08:08→19:54)
[2017-07-25] MEDS: HydrALAZINE HCL 20 MG/ML VIAL IV. PRN ×2 (08:10→16:04)
[2017-07-25] MEDS ORDERED: FUROSEMIDE 40 MG TAB PO SCH (09:00)
[2017-07-25] MEDS: INSULIN ASPART 100 UNITS/ML 3 ML PEN SC SCH ×4 (09:56→21:48)
--- NOTE | 2017-07-25 12:08 | DIAGNOSTIC IMAGING REPORT ---
CHEST ONE VIEW PORTABLE CLINICAL HISTORY: hypoxia dyspnea COMPARISON STUDY: 07/23/2017 FINDINGS: Lungs remain clear. Mild stable cardiomegaly. Pulmonary vasculature is slightly prominent although improved from the prior exam. IMPRESSION: Improved prominence of the pulmonary vasculature. Mild stable cardiomegaly. The above report was generated using voice recognition software. It may contain grammatical, syntax or spelling errors. Electronically signed by: Armen Fierro M.D. 07/25/2017 12:07 PM Dictated Date/Time: 07/25/2017 12:06 PM
[2017-07-25] MEDS: HEPARIN SOD 5000 UNIT/0.5 ML CARP SQ SCH ×2 (12:25→21:50)
--- NOTE | 2017-07-25 14:25 | Hospitalist Progress Note ---
Hospitalist Progress Note Date of Service Jul 25, 2017. (Laura Marquez ., JULIUS) Subjective Pt evaluation today including: conversation w/ patient, physical exam, chart review, lab review, review of inpatient medication list Mr. Pierce is complaining of frontal headache today and transient slurred speech. He is also short of breath and requiring 2L NC. ROS Constitutional: no chills, aches, sweats or fever Respiratory: no cough, sputum, or wheezing Cardiac: no chest pain, palpitations, edema, orthopnea or lightheadedness GI: no abdominal pain, nausea, vomiting, diarrhea or constipation : no dysuria or hesitancy Extremities: no joint pain or weakness Skin: no rash All other systems reviewed and negative (Laura Marquez CRNP) Medications Medications Administered Medications (Trade) Dose Ordered Sig/Major Route Start Time Stop Time Status Last Admin Dose Admin Sodium Chloride 1,000 ml @ 999 mls/hr Q1H1M STAT IV 07/23/17 16:34 07/23/17 17:34 DC 07/23/17 16:54 999 MLS/HR Aspirin (Aspirin Chew) 243 mg NOW STAT PO 07/23/17 18:09 07/23/17 18:11 DC 07/23/17 19:00 243 MG Magnesium Oxide (Mag-Ox Tab) 800 mg ONE STAT PO 07/23/17 18:09 07/23/17 18:11 DC 07/23/17 19:00 800 MG Potassium Chloride (Klor-Con M10) 40 meq STK-MED ONCE .ROUTE 07/23/17 18:51 07/23/17 18:52 DC 07/23/17 18:54 40 MEQ Ceftriaxone Sodium (Rocephin Inj) 1 gm NOW STAT IV 07/23/17 19:50 07/23/17 19:51 DC 07/23/17 20:22 1 GM Acetaminophen (Tylenol Tab) 650 mg Q4H PRN PO 07/23/17 20:45 08/22/17 20:44 07/25/17 07:35 650 MG Heparin Sodium (Porcine) (Heparin Sq 5000 Unit/0.5ml) 5,000 unit Q12H SQ 07/23/17 23:00 08/22/17 22:59 07/25/17 12:25 5,000 UNIT Allopurinol (Zyloprim Tab) 100 mg DAILY PO 07/24/17 08:00 08/23/17 08:59 07/25/17 08:03 100 MG Aspirin (Ecotrin Tab) 81 mg DAILY PO 07/24/17 08:00 08/23/17 08:59 07/25/17 08:04 81 MG Atorvastatin Calcium (Lipitor Tab) 80 mg QPM PO 07/23/17 23:00 08/22/17 22:59 07/24/17 21:04 80 MG Cholecalciferol (Vitamin D Tab) 2,000 inter.unit DAILY PO 07/24/17 08:00 08/23/17 08:59 07/25/17 08:04 2,000 INTER.UNIT Clopidogrel Bisulfate (plAVix TAB) 75 mg DAILY PO 07/24/17 08:00 08/23/17 08:59 07/25/17 08:06 75 MG Gabapentin (Neurontin Cap) 300 mg TID PO 07/24/17 08:00 08/23/17 08:59 07/25/17 08:04 300 MG Loratadine (Claritin Tab) 10 mg DAILY PO 07/24/17 08:00 08/23/17 08:59 07/25/17 08:07 10 MG Metoprolol Tartrate (Lopressor Tab) 50 mg BID PO 07/23/17 23:00 08/22/17 22:59 07/25/17 08:03 50 MG Pantoprazole Sodium (Protonix Tab) 40 mg DAILY PO 07/24/17 08:00 08/23/17 08:59 07/25/17 08:03 40 MG Paroxetine HCl (pAXil TAB) 40 mg QPM PO 07/24/17 21:00 08/23/17 20:59 07/24/17 21:03 40 MG Trazodone HCl (Desyrel Tab) 100 mg HS PO 07/23/17 23:00 08/22/17 22:59 07/24/17 21:04 100 MG Buspirone HCl (Buspar Tab) 20 mg BID PO 07/23/17 23:00 08/22/17 22:59 07/25/17 08:05 20 MG Cyanocobalamin (Vitamin B-12 Tab) 2,500 mcg QAM PO 07/24/17 08:00 08/23/17 08:59 07/25/17 08:07 2,500 MCG Multivitamins/ Minerals (Multivitamin W/ Minerals Tab) 1 tab QAM PO 07/24/17 08:00 08/23/17 08:59 07/25/17 08:05 1 TAB Ceftriaxone Sodium 1 gm/ Dextrose 50 ml @ 100 mls/hr Q24H IV 07/24/17 20:00 08/03/17 19:59 07/24/17 19:18 100 MLS/HR Budesonide/ Formoterol Fumarate (Symbicort 80/ 4.5 Inh) 1 puffs BID INH 07/24/17 08:00 08/22/17 20:59 07/25/17 08:08 1 PUFFS Insulin Aspart (novoLOG ASPART) SLIDING SCALE If C... ACHS SC 07/24/17 16:30 08/23/17 16:29 07/25/17 13:47 1 UNITS Hydralazine HCl (HydrALAZINE INJ) 10 mg Q4H PRN IV. 07/24/17 16:45 08/23/17 16:44 07/25/17 08:10 10 MG (Laura Marquez CRNP) Objective Vital Signs Date Time Temp Pulse Resp B/P (MAP) Pulse Ox O2 Delivery O2 Flow Rate FiO2 07/25/17 07:43 36.3 62 18 186/95 (125) 99 Nasal Cannula 2.0 07/25/17 00:11 36.7 60 20 161/77 (105) 96 Nasal Cannula 2.0 07/25/17 00:00 Room Air 07/24/17 22:16 65 171/77 (108) 07/24/17 19:35 64 07/24/17 18:05 60 203/82 (122) 07/24/17 18:04 60 205/79 (121) 07/24/17 18:02 60 197/79 (118) 07/24/17 16:57 181/92 (121) 07/24/17 16:35 65 196/98 (130) 07/24/17 16:05 36.4 68 18 184/93 (123) 91 Room Air 07/24/17 16:00 98 Room Air (Laura Marquez CRNP) Physical Exam Notes: General: no distress Eyes: normal inspection, PERLL Respiratory: chest non tender, clear to auscultation, normal breath sounds, no respiratory distress, no accessory muscle use Cardiac: regular rate and rhythm, no rub or gallop, no murmur, no edema, no jvd GI/: active bowel sounds, no abd pain or tenderness, soft, non distended Extremities: normal range of motion, normal strength, non tender Neuro/Psych: alert and oriented x 3, normal mood and affect Skin: normal color, dry (Laura Marquez, JULIUS) Laboratory Results Last 24 Hours Test 07/24/17 15:55 07/24/17 20:10 07/25/17 07:00 07/25/17 07:42 Bedside Glucose 159 mg/dl 178 mg/dl 167 mg/dl White Blood Count 6.09 K/uL Red Blood Count 4.47 M/uL Hemoglobin 14.3 g/dL Hematocrit 41.2 % Mean Corpuscular Volume 92.2 fL Mean Corpuscular Hemoglobin 32.0 pg Mean Corpuscular Hemoglobin Concent 34.7 g/dl Platelet Count 139 K/uL Mean Platelet Volume 11.7 fL Neutrophils (%) (Auto) 68.5 % Lymphocytes (%) (Auto) 18.9 % Monocytes (%) (Auto) 8.7 % Eosinophils (%) (Auto) 2.8 % Basophils (%) (Auto) 0.8 % Neutrophils # (Auto) 4.17 K/uL Lymphocytes # (Auto) 1.15 K/uL Monocytes # (Auto) 0.53 K/uL Eosinophils # (Auto) 0.17 K/uL Basophils # (Auto) 0.05 K/uL RDW Standard Deviation 49.5 fL RDW Coefficient of Variation 14.8 % Immature Granulocyte % (Auto) 0.3 % Immature Granulocyte # (Auto) 0.02 K/uL Sodium Level 137 mmol/L Potassium Level 4.1 mmol/L Chloride Level 102 mmol/L Carbon Dioxide Level 28 mmol/L Anion Gap 7.0 mmol/L Blood Urea Nitrogen 21 mg/dl Creatinine 1.48 mg/dl Est Creatinine Clear Calc Drug Dose 59.3 ml/min Estimated GFR () 55.2 Estimated GFR (Non- 47.6 BUN/Creatinine Ratio 14.3 Random Glucose 172 mg/dl Calcium Level 9.3 mg/dl Magnesium Level 2.0 mg/dl Chemistry Specimen Hemolysis Test 07/25/17 11:42 Bedside Glucose 162 mg/dl (Laura Marquez CRNP) Assessment and Plan The patient is a 67-year-old male past medical history including COPD, atrial fibrillation, TIA, hypertension, hyperlipidemia, bladder cancer, prostate cancer , urostomy placement, diabetes mellitus and sepsis, who presents to the emergency department with intermittent symptoms of ambulatory dysfunction, loss of balance, generalized weakness and fatigue. Sepsis secondary to UTI/bladder cancer/prostate cancer/urostomy placement - sepsis ruled out, patient is not febrile, does not have an elevated WBC count , VSS, no lactic acid was drawn on admission - Placed on ceftriaxone 1 g IV daily - can continue for now - Urine culture contaminated - recollect Weakness/ Orthostasis - PT/OT evals - Orthostatics positive with a 30 point drop - will start midodrine and continue to hold lasix Hypertension/chronic kidney disease stage III/atrial fibrillation/chronic diastolic heart failure/hx TIA-- - Continue aspirin 81 mg daily, Plavix 75 mg daily, and metoprolol tartrate 50 mg p.o. twice daily, statin. - continue to hold lasix, spironolactone for kidney function/orthostasis Diabetes mellitus-- - continue to hold home glipizide 5 mg daily. - BSGs ac & hs, ss - bsgs stable - A1c 8.8 - reflex to family educator Anxiety with depression-- Continue buspirone 20 mg p.o. twice daily, fluoxetine 40 mg in the evening and trazodone 100 mg p.o. at bedtime. COPD-- Continue Symbicort 80/4.5, 1 puff twice daily and duo nebs 4 times daily as needed. SOB today and requiring 2L NC - CXR did not show acute process Headache/slurred speech - stat head ct pending - patient did not have symptoms at the time of my exam and ultrasound tech II-XII were all intact Hyperlipidemia-- Continue atorvastatin 80 mg p.o. in the evening Gout-- Continue allopurinol 100 mg p.o. daily. Vitamin B12 deficiency-- Continue cyanocobalamin 2500 mcg p.o. daily. GERD-- Continue pantoprazole 40 mg p.o. daily. Seasonal allergy-- Continue loratadine 10 mg p.o. daily (Laura Marquez CRNP) [employer] Physician Supervision Note: I interviewed and examined the patient. Discussed with Laura Marquez [employer] and agree with findings and plan as documented in the note. Any exceptions or clarifications are listed here: None Patient is getting better today but he still has persistent Orthostatic hypotension low oxygen saturation levels and occasional intermittent neurological challenges with speaking because of the speaking issue the patient had an acute CT of his head which showed no acute stroke his symptoms resolved continuous bullae over the next few hours and he had no focal other neurological losses Vital signs show persistent orthostasis oxygen sats remain above 90 Heart is distant regular lungs have prolonged expiratory phase consistent with likely chronic lung disease or COPD This patient presented with dehydration and has some orthostatic hypotension likely from diabetic neuropathy and autonomic dysfunction will attempt you submitted drain and avoiding Florinef as he does have some trouble with fluid retention has had a pericardial effusion in the past will continue to follow his vital signs are progressing through physical therapy Documented By: Gamaliel Zarco (Gamaliel Zarco M.D.)
--- NOTE | 2017-07-25 15:44 | DIAGNOSTIC IMAGING REPORT ---
CT OF THE HEAD WITHOUT CONTRAST CLINICAL HISTORY: Headache. Slurred speech. COMPARISON STUDY: Head CT July 23, 2017. CT DOSE: 1421.31 mGycm TECHNIQUE: Helical axial images of the head were obtained without IV contrast. Automated exposure control was utilized for the study. A dose lowering technique was utilized adhering to the principles of ALARA. FINDINGS: No acute intracranial hemorrhage, midline shift or mass effect is present. Encephalomalacia within the left frontoparietal region represents an old infarct. The basilar cisterns are patent. There are no extra axial collections. White matter hypodensity suggests small vessel disease. There are no findings to suggest acute dural sinus thrombosis or acute territorial infarct. There are no significant calvarial abnormalities. Visualized portions of the sinuses and mastoid air cells are clear. IMPRESSION: 1. No acute intracranial findings. 2. 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 Electronically signed by: Moisés Givens M.D. 07/25/2017 3:43 PM Dictated Date/Time: 07/25/2017 3:36 PM
[2017-07-25] MEDS: CEFTRIAXONE SOD INJ 1 GM in DEXTROSE 5% ADD-VANTAGE 50ML 50 ML IV SCH (19:55)
[2017-07-25] MEDS: ATORVASTATIN 40 MG TAB PO SCH (19:56)
[2017-07-25] MEDS: PAROXETINE 20 MG TAB PO SCH (19:57)
[2017-07-25] MEDS: TRAZODONE HCL 100 MG TAB PO SCH (21:51)
[2017-07-26 06:32] LABS: BASO % 0.4 %; BASO ABS # 0.02 K/uL (0-0.2); EOS ABS # 0.16 K/uL (0-0.5); HEMATOCRIT 37.2 % (42-52); IG# 0.01 K/uL (0.00-0.02); LYMPH % 16.8 %; LYMPH ABS # 0.89 K/uL (1.2-3.4); MEAN CELL VOLUME 91.6 fL (80-100); MEAN CORPUSCULAR HGB CONC 34.9 g/dl (32-36); MEAN PLATELET VOLUME 10.9 fL (7.4-10.4); MONO % 10.9 %; MONO ABS # 0.58 K/uL (0.11-0.59); NEUT % 68.7 %; NEUT ABS # 3.64 K/uL (1.4-6.5); PLATELET COUNT 130 K/uL (130-400); RED CELL DISTRIBUTION WIDTH CV 14.6 % (11.5-14.5); RED CELL DISTRIBUTION WIDTH SD 48.7 fL (36.4-46.3)
[2017-07-26 07:06] LABS: CALCIUM 8.9 mg/dl (8.5-10.1); CREATININE 1.52 mg/dl (0.60-1.40); POTASSIUM 4.1 mmol/L (3.5-5.1)
[2017-07-26 07:18] VITALS: BP 179/99; PULSE 68; TEMP 36.8; O2SAT 97
[2017-07-26] MEDS: METOPROLOL TARTRATE 50 MG TAB PO SCH (07:43)
[2017-07-26] MEDS: ASPIRIN 81 MG ECTAB PO SCH (07:44)
[2017-07-26] MEDS: ALLOPURINOL 100 MG TAB PO SCH (07:44)
[2017-07-26] MEDS: CYANOCOBALAMIN 500 MCG TAB (VIT B-12) PO SCH (07:44)
[2017-07-26] MEDS: CLOPIDOGREL BISULFATE 75 MG TAB PO SCH (07:45)
[2017-07-26] MEDS: CHOLECALCIFEROL 1000 INTER.UNIT TAB PO SCH (07:45)
[2017-07-26] MEDS: CEROVITE ADV FORMULA TAB PO SCH (07:46)
[2017-07-26] MEDS: LORATADINE 10 MG TAB PO SCH (07:46)
[2017-07-26] MEDS: GABAPENTIN 300 MG CAP PO SCH ×2 (07:46→14:09)
[2017-07-26] MEDS: PANTOprazole SOD 40 MG TAB PO SCH (07:46)
[2017-07-26] MEDS: BUDESONIDE/FORMOTEROL FUMARATE 80/4.5 60 PUFFS/INHALER INH SCH (07:47)
[2017-07-26 08:00] VITALS: O2SAT 97
[2017-07-26] MEDS ORDERED: LISINOPRIL 5 MG TAB PO SCH (08:30)
[2017-07-26 09:10] VITALS: BP 135/78; PULSE 60
[2017-07-26] MEDS: INSULIN ASPART 100 UNITS/ML 3 ML PEN SC SCH ×2 (09:17→12:30)
[2017-07-26] MEDS: HEPARIN SOD 5000 UNIT/0.5 ML CARP SQ SCH (12:29)
[2017-07-26] MEDS ORDERED: LSN5 PO (12:57)
--- NOTE | 2017-07-26 12:58 | Discharge Instructions ---
Discharge Instructions Date of Service Jul 26, 2017. Admission Reason for Admission: Dehydration,Mild Discharge Discharge Diagnosis / Problem: orthostatic hypotension, dehydration and urinary tract infection Discharge Goals Goal(s): Diagnostic testing, Therapeutic intervention Activity Recommendations Activity Limitations: as noted below Lifting Limitations: gradually increase as tolerated . Instructions / Follow-Up Instructions / Follow-Up Call your Primary Care doctor if any of the following symptoms or problems start or get worse: * Shortness of breath or difficulty breathing * Wake up at night short of breath * Chest pain * Cough * Swelling of your hands, feet, or legs * More fatigued or tired with your normal activity * Palpitations - sudden fast heart beats WEIGHT * Weigh yourself every morning after using the bathroom. * Use the same scale. * Wear the same amount of clothing. * Write your weight down on a chart. * Call your Primary Care doctor if you gain more than 2-3 pounds in 1-2 days. MEDICATIONS * Use this discharge instruction sheet for medication instructions. * Take your medications at the time your doctor ordered. * Do not skip a dose of your medicines. * If you miss a dose of medicine, take it as soon as possible, but DO NOT DOUBLE A DOSE. * Read your medicine information when you get home. * Know all of the side effects of your medicine. If in doubt, ask your pharmacist * Call your Primary Care doctor's office if you have any side effects. * Be sure all of your doctors know what medicine and herbs you take (including cold, flu, and herbal medicine). Take the following with you to your follow-up doctor appointments: * Weight Chart * Medication List * List of questions Do not drink excessive alcohol, beer or wine. Current Hospital Diet Patient's current hospital diet: Diabetes Type 2 Diet Discharge Diet Recommended Diet: Regular Diet Pending Studies Studies pending at discharge: no Laboratory Results Hemoglobin A1c Test 07/24/17 06:43 Range/Units Estimated Average Glucose 206 mg/dl Hemoglobin A1c 8.8 H 4.5-5.6 % Medical Emergencies . Who to Call and When: Call 911 or go to the Emergency Room if: * If at any time you feel your situation is an emergency * You have tightness or pain in your chest that does not go away with rest or Nitroglycerin * You are very short of breath even with rest . Non-Emergent Contact Non-Emergency issues call your: Primary Care Provider Call Non-Emergent contact if: temperature is above 101, your pain is unusual for you . . "Provider Documentation" section prepared by Gamaliel Zarco. . VTE Core Measure Inpt VTE Proph given/why not?: Unfractionated heparin SQ, SCD's
[2017-07-26] MEDS ORDERED: CEFU250T15 PO (14:32)
[2017-07-26 15:19] VITALS: BP 135/78; PULSE 60; TEMP 36.8; O2SAT 97
[2017-07-26 15:37] VITALS: BP 176/87; PULSE 65; TEMP 36.6; O2SAT 95
--- NOTE | 2017-07-26 17:23 | Discharge Summary ---
Discharge Summary Date of Service Jul 26, 2017. Discharge Summary Admission Date: Jul 23, 2017 at 20:38 Discharge Date: Jul 26, 2017 Discharge Disposition: Home Principal Diagnosis: dehydration and uti poa Immunizations: Have You Had Influenza Vaccine: N/A Influenza Vaccine Date: Apr 02, 2010 History of Tetanus Vaccine?: Yes Tetanus Immunization Date: Jun 02, 2001 History of Pneumococcal: Unknown Pneumococcal Date: Mar 29, 2012 History of Hepatitis B Vaccine: Unknown Medication Reconciliation New Medications: Cefuroxime Axetil (Ceftin) 250 Mg Tab 250 MG PO BID, #8 TAB Lisinopril (Lisinopril) 5 Mg Tab 5 MG PO QAM, #30 TAB 7 Refills Continued Medications: Allopurinol (Zyloprim) 100 Mg Tab 100 MG PO DAILY Aspirin Enteric Coated (Ecotrin Or Generic) 81 Mg Tab 81 MG PO DAILY Atorvastatin (Lipitor) 80 Mg Tab 80 MG PO QPM, TAB Budesonide/Formoterol Fumarate (Symbicort 80/4.5 Inhaler) 120 Puffs/ Aero 1 PUFF INH BID Buspirone Hcl (Buspirone Hcl) 10 Mg Tab 20 MG PO BID, TAB Cholecalciferol (Vitamin D 1000 Unit) 1,000 Unit Cap 2000 INTER.UNIT PO DAILY Clonazepam (Klonopin) 1 Mg Tab 0.5 MG PO DAILY PRN for Anxiety, TAB Clopidogrel (Plavix) 75 Mg Tab 75 MG PO DAILY Cyanocobalamin (B-12) 2,500 Mcg Tab 2500 MCG PO DAILY Furosemide (Lasix) 40 Mg Tab 40 MG PO BID Gabapentin (Neurontin) 300 Mg Cap 300 MG PO TID Glipizide (Glucotrol) 5 Mg Tab 5 MG PO DAILY Ipratropium-Albuterol (Duoneb) 3 Ml Nebu 1 TREATMENT INH QID PRN for SOB/Wheezing, INHA Loratadine (Claritin) 10 Mg Tab 10 MG PO DAILY Melatonin (Melatonin) 10 Mg Cap 10 MG PO HS Metoprolol Tartrate (Lopressor) (Lopressor) 50 Mg Tab 50 MG PO BID, TAB Multiple Vitamins W/ Minerals (Preservision Areds 2) 1 Cap Cap 1 CAP PO DAILY Nitroglycerin (Nitrostat) 0.3 Mg Tab 0.3 MG UT UD PRN for Chest Pain PLACE ONE TABLET UNDER THE TONGUE EVERY 5 MINUTES FOR UP TO 3 DOSES OVER 15 MINUTES IF NEEDED FOR CHEST PAIN. Pantoprazole Sodium (Protonix) 40 Mg Tab 40 MG PO DAILY Paroxetine (Paxil) 40 Mg Tab 40 MG PO QPM Trazodone Hcl (Trazodone) 100 Mg Tab 100 MG PO HS, TAB Discontinued Medications: Spironolactone (Aldactone) 25 Mg Tab 25 MG PO DAILY, TAB Discharge Exam Review of Systems: Constitutional: + weakness, No fever, No chills Respiratory: No cough, No shortness of breath Cardiovascular: No chest pain, No edema Physical Exam: General Appearance: WD/WN, no apparent distress Respiratory/Chest: chest non-tender, lungs clear Cardiovascular: regular rate, rhythm, no murmur Abdomen / GI: normal bowel sounds, non tender, soft Hospital Course The patient is a 67-year-old male past medical history including COPD, atrial fibrillation, TIA, hypertension, hyperlipidemia, bladder cancer, prostate cancer , urostomy placement, diabetes mellitus and sepsis, who presents to the emergency department with intermittent symptoms of ambulatory dysfunction, loss of balance, generalized weakness and fatigue. UTI poa /bladder cancer/prostate cancer/urostomy placement - sepsis ruled out, patient is not febrile, does not have an elevated WBC count , VSS, no lactic acid was drawn on admission - Placed on ceftriaxone 1 g IV daily - will have typical abnormal ua, will complete additional antibiotic course at home Weakness/ Orthostasis - PT/OT evals suggest pt has regained stable gaint have resumed lasix but held spironolactone Hypertension/chronic kidney disease stage III/atrial fibrillation/chronic diastolic heart failure/hx TIA-- - Continue aspirin 81 mg daily, Plavix 75 mg daily, and metoprolol tartrate 50 mg p.o. twice daily, statin. - lasix, but hold spironolactone until pt has follow up appointment Diabetes mellitus--resume home glipizide 5 mg daily. - A1c 8.8 Anxiety with depression-- buspirone 20 mg p.o. twice daily, fluoxetine 40 mg in the evening and trazodone 100 mg p.o. at bedtime. COPD--stable not in exacerbation, Symbicort 80/4.5, 1 puff twice daily and duo nebs 4 times daily as needed. 2 step prior to leaving states pt does not need oxygen Headache/slurred speech resolved negative head CT Hyperlipidemia-- atorvastatin 80 mg p.o. in the evening Gout-- allopurinol 100 mg p.o. daily. Vitamin B12 deficiency-- cyanocobalamin 2500 mcg p.o. daily. GERD--pantoprazole 40 mg p.o. daily. Seasonal allergy-- loratadine 10 mg p.o. daily Total Time Spent: Greater than 30 minutes This includes examination of the patient, discharge planning, medication reconciliation, and communication with other providers. Discharge Instructions Please refer to the electronic Patient Visit Report (Discharge Instructions) for additional information.
== END 2017-07-26 16:20 | disposition home or self-care (01) | DRG 690 ==
LOC: C.EDB 15:48 → C.MS4W 20:38 → ENRESERV 22:01
PROVIDERS: ADMIT Hospitalist; ATTEND Internal Medicine
DX: N39.0 Urinary tract infection, site not specified (principal); I13.0 Hypertensive heart and chronic kidney disease with heart failure and stage 1 through stage 4 chronic kidney disease, or unspecified chronic kidney disease; I50.32 Chronic diastolic (congestive) heart failure; I95.1 Orthostatic hypotension; E86.0 Dehydration; R47.81 Slurred speech; N18.3 Chronic kidney disease, stage 3 (moderate); E11.22 Type 2 diabetes mellitus with diabetic chronic kidney disease; E11.40 Type 2 diabetes mellitus with diabetic neuropathy, unspecified; E78.5 Hyperlipidemia, unspecified; I48.91 Unspecified atrial fibrillation; J44.9 Chronic obstructive pulmonary disease, unspecified; F32.9 Major depressive disorder, single episode, unspecified; F41.9 Anxiety disorder, unspecified; R51 Headache; M10.9 Gout, unspecified; E53.8 Deficiency of other specified B group vitamins; Z79.02 Long term (current) use of antithrombotics/antiplatelets; Z79.82 Long term (current) use of aspirin; Z79.899 Other long term (current) drug therapy; Z88.5 Allergy status to narcotic agent; Z88.8 Allergy status to other drugs, medicaments and biological substances

== ENCOUNTER 2018-01-01 11:15 | Inpatient (IN) | payer OTHER ==
[~2018-01-01] VITALS: Ht 172.7 cm; Wt 124.9 kg
[~2018-01-01 11:15] MED LIST changes: +ASPI-319 PO; -ASPI81TA21 PO; +CLON1TAB10 PO; -CLON1TAB3 PO; +IPRA-64 INH; -IPRASOL4 INH; +LISI-730 PO; -PRED20TA2 PO; -SPIR25TA PO
[2018-01-01] MEDS ORDERED: GLIP10TA9 PO (12:27)
[2018-01-01] MEDS ORDERED: LISI-461 PO (12:27)
[2018-01-01] MEDS ORDERED: LISI-725 PO (12:27)
[2018-01-01] MEDS ORDERED: ACET-1256 PO (12:27)
[2018-01-01] MEDS ORDERED: LACTCAP3 PO (12:27)
[2018-01-01] MEDS ORDERED: ALLO300T2 PO (12:27)
[2018-01-01] MEDS ORDERED: CYCL10TA6 PO (12:27)
[2018-01-01] MEDS ORDERED: SODIUM CHLORIDE 0.9% 500ML 500 ML IV STA (12:38)
[2018-01-01] MEDS ORDERED: PARO1TAB9 PO (12:38)
[2018-01-01 12:39] LABS: HEMATOCRIT 44.1 % (42-52); HEMOGLOBIN 14.8 g/dL (14.0-18.0); MEAN CELL VOLUME 91.3 fL (80-100); MEAN CORPUSCULAR HEMOGLOBIN 30.6 pg (25-34); MEAN CORPUSCULAR HGB CONC 33.6 g/dl (32-36); RED CELL DISTRIBUTION WIDTH CV 14.7 % (11.5-14.5); WHITE BLOOD COUNT 5.59 K/uL (4.8-10.8)
[2018-01-01 12:45] LABS: ALBUMIN 4.4 gm/dl (3.4-5.0); CALCIUM 9.5 mg/dl (8.5-10.1); CREATININE 3.71 mg/dl (0.60-1.40); POTASSIUM 6.7 mmol/L (3.5-5.1); TOTAL PROTEIN 8.2 gm/dl (6.4-8.2)
[2018-01-01] MEDS ORDERED: DEXTROSE 50% 50 ML SYR IV STA ×2 (12:53→17:44)
[2018-01-01] MEDS ORDERED: ALBUTEROL 0.5% NEB SOLN 2.5 MG/0.5 ML VIAL INH STA (12:53)
[2018-01-01] MEDS ORDERED: CALCIUM GLUCONATE 10% 10 ML VIAL IV STA (12:53)
[2018-01-01] MEDS ORDERED: NovoLIN-R INSULIN PER UNIT CHARGE IV STA (12:53)
[2018-01-01 12:59] LABS: BASO % 0.7 %; BASO ABS # 0.04 K/uL (0-0.2); EOS % 2.1 %; EOS ABS # 0.12 K/uL (0-0.5); IG# 0.01 K/uL (0.00-0.02); LYMPH % 17.9 %; MONO % 7.5 %; MONO ABS # 0.42 K/uL (0.11-0.59); NEUT % 71.6 %; PLATELET COUNT 128 K/uL (130-400)
[2018-01-01 13:27] LABS: PHOSPHORUS 4.8 mg/dl (2.5-4.9)
[2018-01-01 13:45] VITALS: O2SAT 94; BMI 41.9
--- NOTE | 2018-01-01 14:02 | History and Physical ---
History & Physical Date & Time of Service: Jan 01, 2018 at 14:01 Chief Complaint: EVAL Primary Care Physician: Ashwin Gottlieb M.D. History of Present Illness Source: patient, family This patient is a 67-year-old male with a history of COPD, paroxysmal atrial fibrillation not on anticoagulation due to history of bleeding, chronic diastolic CHF, DM 2, permanent pacemaker, CAD status post stents, CKD stage III , TIA/CVA, HTN, dyslipidemia, bladder cancer status post cystectomy and urostomy , prostate cancer status post prostatectomy, peripheral neuropathy, nephrolithiasis, here with persistent dizziness, weakness with almost daily falls for several weeks. He has also had multiple episodes of diarrhea daily for several weeks. He was seen for altered mental status and confusion and found to have a UTI in early November and was treated with antibiotics. His took him back to the hospital in [place] several days later when he persisted with his confusion. A repeat CT of the head at that time did confirm a new stroke. He was also having left-sided weakness at that time. He was discharged from there to [facility] where he was then discharged to home on December 11. Ever since discharge, his mental status has been okay except for some occasional confusion, but he has been falling almost daily. He has no focal deficits, but will be walking around and then his knees will give out. He had a fall yesterday with some bruises on the back and buttocks but no head trauma. In the ER, he was found to have a creatinine of 3.71, with a potassium elevated at 6.7. He had no changes on his ECG. He was given IV calcium gluconate, insulin and D50, and a nebulizer treatment. He was also given a liter of IV fluids. Other labs were fairly unremarkable. The patient is say that he has not had any labs drawn since he was in the hospital 1 month ago for his stroke. He will be admitted for acute kidney injury possibly secondary to dehydration from diarrhea. Past Medical/Surgical History PMH: Chronic diastolic heart failure PAF not on anticoagulation due to previous issues with hematuria HTN CAD with history of stents placed in 2011 History of pericardial effusion from 2011 with pericardial window placed CKD stage III COPD DM 2, on long-term insulin Hyperlipidemia Peripheral neuropathy History of bladder cancer status post cystectomy and urostomy formation History of prostate cancer status post prostatectomy Nephrolithiasis Surgical Problems: History of urostomy Revision of urostomy Prostatectomy Cystectomy Cholecystectomy Permanent pacemaker placement Pericardial window-2011 Lumbar discectomy-2006 Family History FH: coronary artery disease Social History Smoking Status: Former Smoker (Smoked 35 pack years and quit in 2000) Alcohol Use: none Drug Use: none Marital Status: Housing status: lives with family (Lives with and his daughter and son-in- law's house) Occupational Status: retired (Formerly in the in [place] and exposed to agent orange) Immunizations History of Influenza Vaccine: N/A Influenza Vaccine Date: Apr 02, 2010 History of Tetanus Vaccine?: Yes Tetanus Immunization Date: Jun 02, 2001 History of Pneumococcal: Unknown Pneumococcal Date: Mar 29, 2012 History of Hepatitis B Vaccine: Unknown Allergies Coded Allergies: Codeine (Verified Adverse Reaction, Mild, "trips me out", 01/01/18) CONFUSION Promethazine (Verified Adverse Reaction, Unknown, UNCONTROLLED MUSCLE MOVEMENTS, 01/01/18) Home Medications Scheduled Acetaminophen (Tylenol), 1,000 MG PO UD Allopurinol (Zyloprim), 300 MG PO QAM Aspirin Enteric Coated (Ecotrin Or Generic), 81 MG PO DAILY Atorvastatin (Lipitor), 80 MG PO QPM Budesonide/Formoterol Fumarate (Symbicort 80/4.5 Inhaler), 1 PUFF INH BID Buspirone Hcl (Buspirone Hcl), 20 MG PO BID Cholecalciferol (Vitamin D 1000 Unit), 1,000 INTER.UNIT PO QAM Clopidogrel (Plavix), 75 MG PO DAILY Cyanocobalamin (B-12), 2,500 MCG PO DAILY Furosemide (Lasix), 40 MG PO BID Gabapentin (Neurontin), 300 MG PO TID Glipizide (Glucotrol), 5 MG PO DAILY Glipizide (Glucotrol), 10 MG PO QAM Lactobacillus (Acidophilus), 350 MG PO DAILY Lisinopril (Zestril), 10 MG PO QAM Lisinopril (Zestril), 20 MG PO QAM Loratadine (Claritin), 10 MG PO DAILY Melatonin (Melatonin), 10 MG PO HS Metoprolol Tartrate (Lopressor) (Lopressor), 75 MG PO BID Multiple Vitamins W/ Minerals (Preservision Areds 2), 1 CAP PO DAILY Pantoprazole Sodium (Protonix), 40 MG PO DAILY Paroxetine Cont Rel (Paxil Cr), 25 MG PO HS Trazodone Hcl (Trazodone), 150 MG PO HS Scheduled PRN Clonazepam (Klonopin), 0.5 MG PO DAILY PRN for Anxiety Cyclobenzaprine Hcl (Flexeril), 10 MG PO BID PRN for Muscle Spasms Ipratropium-Albuterol (Duoneb), 1 TREATMENT INH QID PRN for SOB/Wheezing Nitroglycerin (Nitrostat), 0.3 MG UT UD PRN for Chest Pain Review of Systems Constitutional: No fever, No chills Eyes: No problem reported ENT: No problem reported Respiratory: No cough, No shortness of breath Cardiovascular: No chest pain, No edema Abdomen: + diarrhea, No pain, No nausea, No vomiting, No constipation, No GI bleeding Musculoskeletal: No problem reported Genitourinary - Male: No urinary retention (Has been making a normal amount of urine in his urostomy bag), No problem reported Neurologic: + problem reported (Some residual left-sided weakness since his stroke 1 month ago) Psychiatric: No problem reported Endocrine: No problem reported Hematologic / Lymphatic: No problem reported Integumentary: No problem reported Allergic / Immunologic: No problem reported Physical Exam Vital Signs Date Time Temp Pulse Resp B/P (MAP) Pulse Ox O2 Delivery O2 Flow Rate FiO2 01/01/18 13:45 94 Room Air 01/01/18 13:32 132/90 01/01/18 13:27 61 18 98 01/01/18 13:02 145/76 01/01/18 12:57 61 18 97 01/01/18 12:32 146/82 01/01/18 12:27 74 01/01/18 12:13 60 01/01/18 12:00 60 114/72 94 Room Air 01/01/18 11:31 68 137/74 97 Room Air 01/01/18 11:22 92 143/81 01/01/18 11:18 36.7 80 16 118/81 97 Room Air 01/01/18 11:18 82 139/85 118/81 General Appearance: WD/WN, no apparent distress, + obese Head: normocephalic, atraumatic Eyes: normal inspection, PERRL, EOMI, sclerae normal ENT: hearing grossly normal, pharynx normal (Edentulous) Neck: supple, no adenopathy, thyroid normal, no JVD, trachea midline Respiratory/Chest: lungs clear, normal breath sounds, no respiratory distress, no accessory muscle use Cardiovascular: regular rate, rhythm, no edema, no gallop, no JVD, no murmur, normal peripheral pulses Abdomen/GI: normal bowel sounds, non tender, soft, + pertinent finding (Large midline surgical scar noted; right lower quadrant with urostomy bag in place draining clear yellow urine) Back: normal inspection Extremities/Musculoskelatal: normal inspection, no calf tenderness, normal capillary refill, no pedal edema Neurologic/Psych: blue line hanger II-XII nml as tested, no motor/sensory deficits, alert, normal mood/affect, oriented x 3 Skin: warm/dry, no rash, + pertinent finding (Multiple small areas of ecchymosis on back and buttocks) Lymphatic: no adenopathy Diagnostics Laboratory Results Results Past 24 Hours Test 01/01/18 11:40 Range/Units White Blood Count 5.59 4.8-10.8 K/uL Red Blood Count 4.83 4.7-6.1 M/uL Hemoglobin 14.8 14.0-18.0 g/dL Hematocrit 44.1 42-52 % Mean Corpuscular Volume 91.3 80-100 fL Mean Corpuscular Hemoglobin 30.6 25-34 pg Mean Corpuscular Hemoglobin Concent 33.6 32-36 g/dl Platelet Count 128 130-400 K/uL Mean Platelet Volume 13.0 7.4-10.4 fL Neutrophils (%) (Auto) 71.6 % Lymphocytes (%) (Auto) 17.9 % Monocytes (%) (Auto) 7.5 % Eosinophils (%) (Auto) 2.1 % Basophils (%) (Auto) 0.7 % Neutrophils # (Auto) 4.00 1.4-6.5 K/uL Lymphocytes # (Auto) 1.00 1.2-3.4 K/uL Monocytes # (Auto) 0.42 0.11-0.59 K/uL Eosinophils # (Auto) 0.12 0-0.5 K/uL Basophils # (Auto) 0.04 0-0.2 K/uL RDW Standard Deviation 49.0 36.4-46.3 fL RDW Coefficient of Variation 14.7 11.5-14.5 % Immature Granulocyte % (Auto) 0.2 % Immature Granulocyte # (Auto) 0.01 0.00-0.02 K/uL Platelet Estimate DECREASED Red Blood Cell Morphology Unremarkable Sodium Level 134 136-145 mmol/L Potassium Level 6.7 3.5-5.1 mmol/L Chloride Level 104 98-107 mmol/L Carbon Dioxide Level 25 21-32 mmol/L Anion Gap 5.0 3-11 mmol/L Blood Urea Nitrogen 99 7-18 mg/dl Creatinine 3.71 0.60-1.40 mg/dl Est Creatinine Clear Calc Drug Dose 24.2 ml/min Estimated GFR () 18.2 Estimated GFR (Non- 15.7 BUN/Creatinine Ratio 26.7 10-20 Random Glucose 98 70-99 mg/dl Calcium Level 9.5 8.5-10.1 mg/dl Phosphorus Level 4.8 2.5-4.9 mg/dl Magnesium Level 2.1 1.8-2.4 mg/dl Total Bilirubin 0.6 0.2-1 mg/dl Aspartate Amino Transf (AST/SGOT) 30 15-37 U/L Alanine Aminotransferase (ALT/SGPT) 30 12-78 U/L Alkaline Phosphatase 113 45-117 U/L Troponin I < 0.015 0-0.045 ng/ml Total Protein 8.2 6.4-8.2 gm/dl Albumin 4.4 3.4-5.0 gm/dl Globulin 3.8 2.5-4.0 gm/dl Albumin/Globulin Ratio 1.2 0.9-2 Thyroid Stimulating Hormone (TSH) 2.080 0.300-4.500 uIu/ml Microbiology Results 01/01/18 C.difficile Toxin B Gene (PCR), Caitlin Batch Pending Diagnostic Radiology I personally reviewed the chest x-ray image and agree with the following report: CHEST 2 VIEWS ROUTINE CLINICAL HISTORY: Weakness. Trauma. Hypertension. COMPARISON STUDY: July 25, 2017 FINDINGS: The heart is enlarged. There is a left subclavian dual-chamber central venous pacemaker. There is no failure. There is no focal pulmonary consolidation. There are no pleural effusions.[ IMPRESSION: No active disease in the chest. CT HEAD WITHOUT CONTRAST (CT) CLINICAL HISTORY: Dizziness. Possible stroke. COMPARISON STUDY: Thyroid 19/08/2017 TECHNIQUE: Axial CT of the brain is performed from the vertex to the skull base. IV contrast was not administered for this examination. A dose lowering technique was utilized adhering to the principles of ALARA. CT DOSE: 614.27 mGy.cm FINDINGS: No intra or extra-axial mass lesions are visualized. There is no CT evidence of acute cortical infarction. There is no evidence of midline shift. There is no acute hemorrhage. No calvarial fractures are visualized. There are patchy white matter hypodensities likely on a small vessel basis. There is an old left parietal lobe infarct. There is no evidence of pathologic ventricular dilatation. There is no evidence of acute sinusitis IMPRESSION: 1. No acute intracranial findings 2. Old left parietal lobe infarct EKG ECG with ventricular paced rhythm, rate 78, no change from previous Impression Assessment and Plan This patient is a 67-year-old male with a history of COPD, paroxysmal atrial fibrillation not on anticoagulation due to history of bleeding, chronic diastolic CHF, DM 2, permanent pacemaker, CAD status post stents, CKD stage III , TIA/CVA, HTN, dyslipidemia, bladder cancer status post cystectomy and urostomy , prostate cancer status post prostatectomy, peripheral neuropathy, nephrolithiasis, here with persistent dizziness, weakness with almost daily falls for several weeks. He has also had multiple episodes of diarrhea daily for several weeks after recent hospitalization for UTI and acute CVA. In the ER , he was found to have a creatinine of 3.71, with a potassium elevated at 6.7. He had no changes on his ECG. He was given IV calcium gluconate, insulin and D50, and a nebulizer treatment. He was also given a liter of IV fluids. Other labs were fairly unremarkable. CANDACE in the setting of CKD stage III/hyperkalemia-likely secondary to dehydration from GI losses. BUN is quite elevated. Repeat BMP later this afternoon still with hyperkalemia with a K +6.3 Has urostomy bag in place and is making plenty of clear urine UA is positive for nitrate, but no WBCs-unclear of the significance of this -Admit to telemetry -Nephrology consultation-discussed the case over the phone -Give 1 amp bicarb now -Continue normal saline at 100 ML's per hour -Give 10 units of regular insulin +1 amp D50 now -Give albuterol nebulizer now -Check ECG again although difficult to interpret given ventricular paced rhythm -Check BMP again at 1999 this evening and if potassium hanging out around 6.0, should be okay until the morning, if continues to rise, on-call nighttime doctor should urgently call the environmental engineering assistant to discuss if needs urgent dialysis -Follow urine culture and treat accordingly but will hold off on antibiotics for now given no WBCs in the urine -Check renal ultrasound to rule out obstruction given history of nephrolithiasis Diarrhea-came on after taking antibiotics for UTI about 3 weeks ago -C. difficile is pending at this time -Treat for C. difficile if appropriate -IV fluid hydration as above Dizziness/weakness/recurrent falls-all likely secondary to history of recent stroke plus renal failure and dehydration as above. Could also be from excessive gabapentin as this is dosed renally and he is in acute kidney failure -Hydrating as above -Treating renal failure -PT/OT consultation -Reducing dose of gabapentin as below CAD/HTN/chronic diastolic CHF/pacemaker status/dyslipidemia-all stable at this time. Troponin negative 1 and blood pressures are acceptable. ECG with ventricular paced rhythm. He does not have any chest pain. He is dehydrated and not volume overloaded -We will continue aspirin, Plavix -Continue atorvastatin 80 mg once daily -Continue metoprolol tartrate 75 mg p.o. twice daily -He follows routinely with the dressed poultry grader in [place] at the [facility] Paroxysmal atrial fibrillation-no longer on anticoagulation due to recurrent issues with hematuria -Continue metoprolol -Pacemaker in place Depression/anxiety-stable -Continue fluoxetine, trazodone Peripheral neuropathy-stable -Continue gabapentin but renally dose to 200 mg p.o. 3 times daily Prophylaxis-SCDs, SQ heparin Disposition-admit to telemetry Full code Advanced Directives Existing Living Will: Yes Existing Power of Automotive Designer: Yes Resuscitation Status VTE Prophylaxis Will order VTE Prophylaxis: Yes Additional Copies To Ashwin Gottlieb M.D.
[2018-01-01] MEDS ORDERED: GLUCOSE 10 TABS/TUBE PO PRN (14:15)
[2018-01-01] MEDS ORDERED: DEXTROSE 50% 50 ML SYR IV PRN (14:15)
[2018-01-01] MEDS ORDERED: GLUCAGON FOR INJ 1 MG VIAL SQ PRN (14:15)
[2018-01-01] MEDS ORDERED: ACETAMINOPHEN 325 MG TAB PO PRN (14:15)
[2018-01-01] MEDS ORDERED: CARBOHYDRATES FOR HYPOGLYCEMIA PO PRN (14:15)
[2018-01-01] MEDS ORDERED: GLUCOSE 40% GEL 15 GM TUBE PO PRN (14:15)
--- NOTE | 2018-01-01 14:20 | DIAGNOSTIC IMAGING REPORT ---
CT HEAD WITHOUT CONTRAST (CT) CLINICAL HISTORY: Dizziness. Possible stroke. COMPARISON STUDY: Thyroid 19/08/2017 TECHNIQUE: Axial CT of the brain is performed from the vertex to the skull base. IV contrast was not administered for this examination. A dose lowering technique was utilized adhering to the principles of ALARA. CT DOSE: 614.27 mGy.cm FINDINGS: No intra or extra-axial mass lesions are visualized. There is no CT evidence of acute cortical infarction. There is no evidence of midline shift. There is no acute hemorrhage. No calvarial fractures are visualized. There are patchy white matter hypodensities likely on a small vessel basis. There is an old left parietal lobe infarct. There is no evidence of pathologic ventricular dilatation. There is no evidence of acute sinusitis IMPRESSION: 1. No acute intracranial findings 2. Old left parietal lobe infarct Electronically signed by: Rafa Durant M.D. 01/01/2018 2:18 PM Dictated Date/Time: 01/01/2018 2:16 PM
[2018-01-01] MEDS ORDERED: CLONAZEPAM 0.5 MG TAB PO PRN (15:00)
[2018-01-01] MEDS ORDERED: ALBUT/IPRATROP 3MG/0.5MG NEB 3 ML VIAL INH PRN (15:00)
--- NOTE | 2018-01-01 16:11 | DIAGNOSTIC IMAGING REPORT ---
CHEST 2 VIEWS ROUTINE CLINICAL HISTORY: Weakness. Trauma. Hypertension. COMPARISON STUDY: July 25, 2017 FINDINGS: The heart is enlarged. There is a left subclavian dual-chamber central venous pacemaker. There is no failure. There is no focal pulmonary consolidation. There are no pleural effusions.[ IMPRESSION: No active disease in the chest. Electronically signed by: Rafa Durant M.D. 01/01/2018 4:10 PM Dictated Date/Time: 01/01/2018 4:09 PM
[2018-01-01] MEDS ORDERED: NITROGLYCERIN 0.4 MG SL PER TAB CHARGE SL PRN (16:30)
[2018-01-01 17:00] VITALS: O2SAT 93
--- NOTE | 2018-01-01 17:00 | EMERGENCY ROOM VISIT NOTE ---
History Report prepared by Jany: Nicole Monge Under the Supervision of: Dr. Gamaliel Mata M.D. First contact with patient: 12:21 Chief Complaint: DIZZY Stated Complaint: EVAL Nursing Triage Summary: PT arrived BLS via [facility]. Hx diabetes, pacemaker, cardiac stent; stroke November 2017 in [place], sent to [facility] for rehab, discharged to home December 11 2017. Since then he has been dizzy and had falls almost daily. has been evaluated by mobile home set up person, not by doctor, since returning home. Family reports home BP was 90/42. EMS reported BP 130's/80's. Pt reported to be unsteady on feet, "weak in the knees". Uses a walker on regular basis. Denies chest pain, blurred vision, weakness on just one side, loss of consciousness. Pt states he has been weak and sleeping more than usual. History of Present Illness The patient is a 67 year old male who presents to the Emergency Room with complaints of persistent generalized weakness and dizziness that started 1 month ago. The patient was going on vacation on November 30 to [place], [place] when he started to become weak, confused, fatigue, and was slurring his speech. His states he went to the ED in [place] on November 30 and was diagnosed with UTI and fatigue and treated with antibiotics. He was discharged home and then started to experience similar symptoms of fatigue and weakness. He then went back to the ED on December 03 and was diagnosed with a stroke. The patient was then sent to [facility] and was discharged home on December 11. Since he was seen in the ED in [place], he has been confused, dizzy, and has weakness in his bilateral legs. The patient fell today and injured his shoulder and back. He states he did not hit his head. His blood pressure has been low when he exerts himself. The patient's weakness also worsens with exertion. He has had intermittent diarrhea and has been unable to make it to the bathroom since his symptoms first started on November 30. He states he is unsure if he was ever checked for C-Diff. The patient denies fevers, chest pain, shortness of breath, headache, or abdominal pain. The patient has had a cystectomy and a prostatectomy due to a history of bladder and prostate cancer. The patient takes Plavix and Aspirin regularly. He states his tetanus shot is up to date. The medical records from the hospital in [place], [place] show he was admitted for left sided weakness, aphasia, and slurring of speech. He had a CT scan of the head which showed an old infarct but nothing acute. He was treated for a UTI with Rocephin. His ABG showed CO2 retention. Carotid Doppler showed moderate disease and his echo was unremarkable. A repeat CT of the head was obtained and did not show any evidence of an acute stroke. They concluded that it could have been stroke vs UTI and COPD. Source of History: patient Onset: 1 month ago Position: other (generalized) Timing: other (persistent) Modifying Factors (Worsening): exertion Associated Symptoms: + diarrhea, No fevers, No headache, No chest pain, No SOB, No abdominal pain Review of Systems See HPI for pertinent positives & negatives. A total of 10 systems reviewed and were otherwise negative. 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 (16) urosepsis (17) UTI (urinary tract infection) Surgical Problems: (1) History of urostomy Family History FH: coronary artery disease Social History Smoking Status: Former Smoker Alcohol Use: none Drug Use: none Marital Status: Housing Status: lives with family Occupation Status: retired Current/Historical Medications Scheduled Acetaminophen (Tylenol), 1,000 MG PO UD Allopurinol (Zyloprim), 300 MG PO QAM Aspirin Enteric Coated (Ecotrin Or Generic), 81 MG PO DAILY Atorvastatin (Lipitor), 80 MG PO QPM Budesonide/Formoterol Fumarate (Symbicort 80/4.5 Inhaler), 1 PUFF INH BID Buspirone Hcl (Buspirone Hcl), 20 MG PO BID Cholecalciferol (Vitamin D 1000 Unit), 1,000 INTER.UNIT PO QAM Clopidogrel (Plavix), 75 MG PO DAILY Cyanocobalamin (B-12), 2,500 MCG PO DAILY Furosemide (Lasix), 40 MG PO BID Gabapentin (Neurontin), 300 MG PO TID Glipizide (Glucotrol), 5 MG PO DAILY Glipizide (Glucotrol), 10 MG PO QAM Lactobacillus (Acidophilus), 350 MG PO DAILY Lisinopril (Zestril), 10 MG PO QAM Lisinopril (Zestril), 20 MG PO QAM Loratadine (Claritin), 10 MG PO DAILY Melatonin (Melatonin), 10 MG PO HS Metoprolol Tartrate (Lopressor) (Lopressor), 75 MG PO BID Multiple Vitamins W/ Minerals (Preservision Areds 2), 1 CAP PO DAILY Pantoprazole Sodium (Protonix), 40 MG PO DAILY Paroxetine Cont Rel (Paxil Cr), 25 MG PO HS Trazodone Hcl (Trazodone), 150 MG PO HS Scheduled PRN Clonazepam (Klonopin), 0.5 MG PO DAILY PRN for Anxiety Cyclobenzaprine Hcl (Flexeril), 10 MG PO BID PRN for Muscle Spasms Ipratropium-Albuterol (Duoneb), 1 TREATMENT INH QID PRN for SOB/Wheezing Nitroglycerin (Nitrostat), 0.3 MG UT UD PRN for Chest Pain Allergies Coded Allergies: Codeine (Verified Adverse Reaction, Mild, "trips me out", 01/01/18) CONFUSION Promethazine (Verified Adverse Reaction, Unknown, UNCONTROLLED MUSCLE MOVEMENTS, 01/01/18) Physical Exam Vital Signs Date Time Temp Pulse Resp B/P (MAP) Pulse Ox O2 Delivery O2 Flow Rate FiO2 01/01/18 16:30 64 16 101/64 98 Nasal Cannula 2.0 01/01/18 15:31 111/77 01/01/18 15:28 60 17 98 Nasal Cannula 2.0 01/01/18 15:01 149/75 99 Nasal Cannula 2.0 01/01/18 14:58 169/83 01/01/18 14:57 70 21 01/01/18 14:02 134/64 01/01/18 13:57 61 16 94 01/01/18 13:45 94 Room Air 01/01/18 13:32 132/90 01/01/18 13:27 61 18 98 01/01/18 13:02 145/76 01/01/18 12:57 61 18 97 01/01/18 12:32 146/82 01/01/18 12:27 74 01/01/18 12:13 60 01/01/18 12:00 60 114/72 94 Room Air 01/01/18 11:31 68 137/74 97 Room Air 01/01/18 11:22 92 143/81 01/01/18 11:18 36.7 80 16 118/81 97 Room Air 01/01/18 11:18 82 139/85 118/81 Physical Exam Constitutional: Vital signs reviewed. Eyes: Pupils are equal round reactive to light. Conjunctiva are noninjected. ENT: Pharynx is clear without erythema or exudate. Mucous membranes are moist. Neck supple without meningeal signs. Respiratory: Clear to auscultation bilaterally. Breath sounds are equal bilaterally. Cardiovascular: Regular rate and rhythm. No rubs or gallops. GI: Soft, nondistended and nontender. Bowel sounds are present.Urostomy with clear yellow urine in collection bag. Musculoskeletal: No peripheral edema. No lower extremity tenderness. No hip tenderness. Superficial laceration to left upper arm. Integumentary: No cyanosis. Neurological: The patient is awake and alert. Cranial nerves II-XII are intact. Motor is 5 out of 5 all extremities. Sensation is intact to light touch all extremities. Normal speech. No pronator drift. Psychiatric: Normal affect. Medical Decision & Procedures ER Provider Diagnostic Interpretation: Radiology results as stated below per my review and the radiologist's interpretation: CT HEAD WITHOUT CONTRAST (CT) CLINICAL HISTORY: Dizziness. Possible stroke. COMPARISON STUDY: Thyroid 19/08/2017 TECHNIQUE: Axial CT of the brain is performed from the vertex to the skull base. IV contrast was not administered for this examination. A dose lowering technique was utilized adhering to the principles of ALARA. CT DOSE: 614.27 mGy.cm FINDINGS: No intra or extra-axial mass lesions are visualized. There is no CT evidence of acute cortical infarction. There is no evidence of midline shift. There is no acute hemorrhage. No calvarial fractures are visualized. There are patchy white matter hypodensities likely on a small vessel basis. There is an old left parietal lobe infarct. There is no evidence of pathologic ventricular dilatation. There is no evidence of acute sinusitis IMPRESSION: 1. No acute intracranial findings 2. Old left parietal lobe infarct Electronically signed by: Rafa Durant M.D. 01/01/2018 2:18 PM Dictated Date/Time: 01/01/2018 2:16 PM CHEST 2 VIEWS ROUTINE CLINICAL HISTORY: Weakness. Trauma. Hypertension. COMPARISON STUDY: July 25, 2017 FINDINGS: The heart is enlarged. There is a left subclavian dual-chamber central venous pacemaker. There is no failure. There is no focal pulmonary consolidation. There are no pleural effusions.[ IMPRESSION: No active disease in the chest. Electronically signed by: Rafa Durant M.D. 01/01/2018 4:10 PM Dictated Date/Time: 01/01/2018 4:09 PM Laboratory Results 01/01/18 11:40 Red Blood Count 4.83, Mean Corpuscular Volume 91.3, Mean Corpuscular Hemoglobin 30.6, Mean Corpuscular Hemoglobin Concent 33.6, Mean Platelet Volume 13.0, Neutrophils (%) (Auto) 71.6, Lymphocytes (%) (Auto) 17.9, Monocytes (%) (Auto) 7.5, Eosinophils (%) (Auto) 2.1, Basophils (%) (Auto) 0.7, Neutrophils # (Auto) 4.00, Lymphocytes # (Auto) 1.00, Monocytes # (Auto) 0.42, Eosinophils # (Auto) 0.12, Basophils # (Auto) 0.04 Test 01/01/18 11:40 01/01/18 14:00 01/01/18 15:12 01/01/18 16:19 White Blood Count 5.59 K/uL (4.8-10.8) Red Blood Count 4.83 M/uL (4.7-6.1) Hemoglobin 14.8 g/dL (14.0-18.0) Hematocrit 44.1 % (42-52) Mean Corpuscular Volume 91.3 fL (80-100) Mean Corpuscular Hemoglobin 30.6 pg (25-34) Mean Corpuscular Hemoglobin Concent 33.6 g/dl (32-36) Platelet Count 128 K/uL (130-400) Mean Platelet Volume 13.0 fL (7.4-10.4) Neutrophils (%) (Auto) 71.6 % Lymphocytes (%) (Auto) 17.9 % Monocytes (%) (Auto) 7.5 % Eosinophils (%) (Auto) 2.1 % Basophils (%) (Auto) 0.7 % Neutrophils # (Auto) 4.00 K/uL (1.4-6.5) Lymphocytes # (Auto) 1.00 K/uL (1.2-3.4) Monocytes # (Auto) 0.42 K/uL (0.11-0.59) Eosinophils # (Auto) 0.12 K/uL (0-0.5) Basophils # (Auto) 0.04 K/uL (0-0.2) RDW Standard Deviation 49.0 fL (36.4-46.3) RDW Coefficient of Variation 14.7 % (11.5-14.5) Immature Granulocyte % (Auto) 0.2 % Immature Granulocyte # (Auto) 0.01 K/uL (0.00-0.02) Platelet Estimate DECREASED Red Blood Cell Morphology Unremarkable Est Creatinine Clear Calc Drug Dose 24.2 ml/min Phosphorus Level 4.8 mg/dl (2.5-4.9) Magnesium Level 2.1 mg/dl (1.8-2.4) Total Bilirubin 0.6 mg/dl (0.2-1) Aspartate Amino Transf (AST/SGOT) 30 U/L (15-37) Alanine Aminotransferase (ALT/SGPT) 30 U/L (12-78) Alkaline Phosphatase 113 U/L (45-117) Troponin I < 0.015 ng/ml (0-0.045) Total Protein 8.2 gm/dl (6.4-8.2) Albumin 4.4 gm/dl (3.4-5.0) Globulin 3.8 gm/dl (2.5-4.0) Albumin/Globulin Ratio 1.2 (0.9-2) Thyroid Stimulating Hormone (TSH) 2.080 uIu/ml (0.300-4.500) Urine Color YELLOW Urine Appearance CLEAR (CLEAR) Urine pH 5.0 (4.5-7.5) Urine Specific Trinity 1.016 (1.000-1.030) Urine Protein NEG (NEG) Urine Glucose (UA) NEG (NEG) Urine Ketones NEG (NEG) Urine Occult Blood NEG (NEG) Urine Nitrite POS (NEG) Urine Bilirubin NEG (NEG) Urine Urobilinogen NEG (NEG) Urine Leukocyte Esterase NEG (NEG) Urine WBC (Auto) 1-5 /hpf (0-5) Urine RBC (Auto) 0-4 /hpf (0-4) Urine Hyaline Casts (Auto) 1-5 /lpf (0-5) Urine Epithelial Cells (Auto) 5-10 /lpf (0-5) Urine Bacteria (Auto) 1+ (NEG) Bedside Glucose 144 mg/dl (70-99) Laboratory results as reviewed by me. Medications Administered Medications (Trade) Dose Ordered Sig/Major Route Start Time Stop Time Status Last Admin Dose Admin Sodium Chloride 500 ml @ 999 mls/hr Q31M STAT IV 01/01/18 12:38 01/01/18 13:08 DC 01/01/18 13:38 999 MLS/HR Dextrose (Dextrose 50% 50ML Syringe) 50 ml NOW STAT IV 01/01/18 12:53 01/01/18 12:56 DC 01/01/18 13:41 50 ML Insulin Human Regular (novoLIN-R U-100 PER UNIT) 10 units NOW STAT IV 01/01/18 12:53 01/01/18 12:56 DC 01/01/18 13:42 10 UNITS Albuterol Sulfate (Ventolin 0.5% 2.5MG/0.5ML Neb) 2.5 mg NOW STAT INH 01/01/18 12:53 01/01/18 12:56 DC 01/01/18 13:40 2.5 MG Calcium Gluconate (Calcium Gluconate 10%) 1,000 mg NOW STAT IV 01/01/18 12:53 01/01/18 12:56 DC 01/01/18 13:40 1,000 MG Dextrose (Dextrose 50% 50ML Syringe) 25-50ML 25ML FOR ... UD PRN IV 01/01/18 14:15 01/31/18 14:14 01/01/18 15:07 25 ML ECG Per My Interpretation Indication: weakness Rate (beats per minute): 78 Rhythm: other (ventricular paced) Findings: no ectopy, other (QRS 186) ED Course 1221: The patient was evaluated in room B12B. A complete history and physical exam was performed. 1238: Ordered Sodium Chloride 500 ml @ 999 mls/hr IV. 1253: Ordered Calcium Gluconate 1000 mg IV, Albuterol Sulfate 2.5 mg INH, Insulin Human Regular 10 units IV, Dextrose 50 ml IV. 1258: I talked about test results with the patient. He states he has not eaten today and the nurse will get him food as well as medication for hyperkalemia. I paged the [facility] Hospitalist at this time. 1300: I spoke with Asaf Hollins PA-C, [facility] Hospitalist. He agrees to evaluate the patient for further management. 1430: I checked on the patient. The hospitalist is evaluating the patient. I spoke with the nurse who will repeat blood sugar and make sure he eats. 1502: The nurse informed me the patient became acutely weak, dropped his sandwich, and started shaking his arms although he was awake the entire time. I evaluated the patient and he seemed to be shivering and was cold to touch. His temperature was 36.7 and his blood sugar was 119. He was given half amp of D50 and warm blankets and his symptoms resolved. 1512: I checked on the patient and he is asymptomatic. Repeat blood sugar was 144. 1520: I informed Dr. Reynolds about the patient's episode. Medical Decision This is a 67-year-old male presents with generalized weakness, diarrhea and falls. Differential diagnosis includes dehydration, acute kidney injury, C. difficile colitis, foodborne illness, UTI, sepsis, CVA. I did perform a limited focused review of portions of the patient's old chart on the electronic medical record. The patient was admitted in July for dehydration and UTI. He has a history of prostate cancer and bladder cancer. I did evaluate the patient as noted above. IV access was established. The patient was placed on a continuous cardiac cath lab technologist. I did order and personally review the patient's 12-lead EKG and chest x-ray as described above. I did order and review the patient's blood work as noted in the electronic medical record. The patient has acute kidney injury with a potassium of 6.7. I did treat the patient with IV calcium gluconate. He was also given IV insulin and dextrose. The patient was given an albuterol nebulizer as well. I did order a CT of the head. I did review the images myself as well as the radiology report as described above. There is no evidence of acute intracranial abnormality. I did order C. difficile testing given his recent antibiotic use but the patient gave us a formed stool sample and so testing was not performed by the lab. I did discuss the test results with the patient and his family. I did discuss the case with the hospitalist and briefcase sewer. While in the ED waiting for a bed assignment and eating a sandwich the patient developed an episode where he became very weak and started shaking. The patient remained awake and alert and was able to answer questions. He was very cold to touch and I did repeat his temperature which was 36.7. I suspect his core temperature was lower. He was given warm blankets. He was also given a half amp of D50 IV. His bedside blood sugar was 119. After a few minutes the patient returned back to normal. He stopped shivering. I did inform the hospitalist of the episode. Medication Reconcilliation Current Medication List: was personally reviewed by me Blood Pressure Screening Patient's blood pressure: Normal blood pressure Consults Time Called: 1255 Consulting Physician: Asaf Hollins PA-C, [facility] Hospitalist Returned Call: 1300 I spoke with Asaf Hollins PA-C, [facility] Hospitalist. He agrees to evaluate the patient for further management. Impression Primary Impression: Acute renal failure Additional Impressions: Diarrhea Generalized weakness Hyperkalemia Critical Care I have personally spent 32 minutes of critical care time in the direct management of this patient. This includes bedside care, interpretation of diagnostic studies, and testing, discussion with consultants, patient, and family members, and other required patient management activities. This 32 minutes is in excess of all separately billable procedures. Scribe Attestation The scribe's documentation has been prepared under my direct and personally reviewed by me in its entirety. I confirm that the note above accurately reflects all work, treatment, procedures, and medical decision making performed by me. Departure Information Dispostion Being Evaluated By Hospitalist Referrals Sean Titus D.O. (PCP) Patient Instructions My [facility] Problem Qualifiers Primary Impression: Acute renal failure Acute renal failure type: unspecified Qualified Codes: N17.9 - Acute kidney failure, unspecified Additional Impressions: Diarrhea Diarrhea type: unspecified type Qualified Codes: R19.7 - Diarrhea, unspecified
[2018-01-01 17:01] LABS: CALCIUM 9.2 mg/dl (8.5-10.1); CREATININE 3.51 mg/dl (0.60-1.40); POTASSIUM 6.3 mmol/L (3.5-5.1)
[2018-01-01] MEDS ORDERED: SODIUM POLYST. SULF SUSP 15G/60ML PO STA (17:15)
[2018-01-01 17:18] VITALS: BP 115/73; PULSE 63; TEMP 36.4; O2SAT 94
[2018-01-01] MEDS: SODIUM CHLORIDE 0.9% 1000ML 1,000 ML IV SCH (17:25)
[2018-01-01] MEDS ORDERED: INSULIN HUMAN REGULAR IV STA (17:44)
[2018-01-01] MEDS ORDERED: ALBUTEROL 0.083% NEBU SOLN 3 ML VIAL INH STA (17:44)
[2018-01-01] MEDS ORDERED: SODIUM BICARB 8.4% INJ 50 MEQ/50 ML SYR IV STA (17:46)
[2018-01-01] MEDS ORDERED: INSULIN HUMAN REGULAR PER UNIT 10 UNITS in SYRINGE 9.9 ML IV ONE (18:00)
[2018-01-01] MEDS: INSULIN ASPART 100 UNITS/ML 3 ML PEN SC SCH ×2 (18:16→21:00)
[2018-01-01 18:21] VITALS: PULSE 64; O2SAT 93
[2018-01-01 18:53] LABS: PTT PATIENT 27.7 SECONDS (21.0-31.0)
[2018-01-01 20:43] LABS: CALCIUM 9.2 mg/dl (8.5-10.1); CREATININE 3.49 mg/dl (0.60-1.40); POTASSIUM 5.4 mmol/L (3.5-5.1)
[2018-01-01] MEDS ORDERED: GABAPENTIN 300 MG CAP PO SCH (21:00)
[2018-01-01] MEDS: GABAPENTIN 100 MG CAP PO SCH (21:10)
[2018-01-01] MEDS: ATORVASTATIN 40 MG TAB PO SCH (21:11)
[2018-01-01] MEDS: PAROXETINE 12.5 MG TABCR PO SCH (21:11)
[2018-01-01] MEDS: METOPROLOL TARTRATE 25 MG TAB PO SCH (21:12)
[2018-01-01] MEDS: TRAZODONE HCL 100 MG TAB PO SCH (21:13)
[2018-01-01] MEDS: BUDESONIDE/FORMOTEROL FUMARATE 80/4.5 60 PUFFS/INHALER INH SCH (21:16)
[2018-01-01] MEDS: HEPARIN SOD 5000 UNIT/0.5 ML CARP SQ SCH (21:16)
--- NOTE | 2018-01-01 22:22 | DIAGNOSTIC IMAGING REPORT ---
ULTRASOUND KIDNEYS AND BLADDER CLINICAL HISTORY: Renal failure. COMPARISON STUDY: Abdominal CT dated 01/07/2013. TECHNIQUE: Real-time, grayscale, and color flow sonography of the kidneys and bladder is performed. Images are reviewed in the transverse and longitudinal planes. FINDINGS: Kidneys: The kidneys are atrophic, slightly asymmetric on the left. The right kidney measures 9.9 x 6.4 x 7.1 cm and the left kidney measures 8.8 x 5.4 x 5.6 cm. Foci of cortical scarring are present in both kidneys. There is no hydronephrosis. No shadowing renal calculi are identified. There is no sonographic evidence of contour deforming renal mass lesion. No perinephric fluid is identified. Bladder: The bladder is surgically absent. IMPRESSION: 1. The kidneys are atrophic and without hydronephrosis. 2. The bladder is surgically absent. Electronically signed by: Asaf Rose M.D. 01/01/2018 10:21 PM Dictated Date/Time: 01/01/2018 10:19 PM
[2018-01-01 23:12] VITALS: BP 114/72; PULSE 61; TEMP 36.5; O2SAT 93
[2018-01-01] MEDS ORDERED: NURSING VERBAL MED ORDER ONE (23:45)
[2018-01-02] VITALS (9 sets, daily range): BP systolic 115–165; BP diastolic 58–83; PULSE 55–64; TEMP 36.4–36.7; O2SAT 92–96; Ht 172.7 cm; Wt 124.9 kg
[2018-01-02] MEDS: SODIUM CHLORIDE 0.9% 1000ML 1,000 ML IV SCH ×3 (05:39→15:42)
[2018-01-02 06:43] LABS: CALCIUM 8.2 mg/dl (8.5-10.1); CREATININE 3.08 mg/dl (0.60-1.40); PHOSPHORUS 3.4 mg/dl (2.5-4.9); POTASSIUM 5.9 mmol/L (3.5-5.1)
[2018-01-02 07:04] LABS: HEMOGLOBIN A1C 8.3 % (4.5-5.6)
[2018-01-02] MEDS ORDERED: SODIUM POLYST. SULF SUSP 15G/60ML PO STA (07:24)
[2018-01-02] MEDS ORDERED: MAGNESIUM SULFATE 1GM / D5W 100 ML IV ONE (07:30)
[2018-01-02] MEDS: BUDESONIDE/FORMOTEROL FUMARATE 80/4.5 60 PUFFS/INHALER INH SCH ×2 (07:51→19:53)
[2018-01-02] MEDS: CYANOCOBALAMIN 2,500 MCG SUBL TAB PO SCH (07:52)
[2018-01-02] MEDS: ALLOPURINOL 300 MG TAB PO SCH (07:52)
[2018-01-02] MEDS: METOPROLOL TARTRATE 25 MG TAB PO SCH ×2 (07:52→19:59)
[2018-01-02] MEDS: LORATADINE 10 MG TAB PO SCH (07:53)
[2018-01-02] MEDS: ASPIRIN 81 MG ECTAB PO SCH (07:54)
[2018-01-02] MEDS: PANTOprazole SOD 40 MG TAB PO SCH (07:54)
[2018-01-02] MEDS: CHOLECALCIFEROL 1000 INTER.UNIT TAB PO SCH (07:55)
[2018-01-02] MEDS: CLOPIDOGREL BISULFATE 75 MG TAB PO SCH (07:55)
[2018-01-02] MEDS: GABAPENTIN 100 MG CAP PO SCH ×3 (07:55→19:51)
[2018-01-02] MEDS: HEPARIN SOD 5000 UNIT/0.5 ML CARP SQ SCH ×2 (08:02→19:58)
[2018-01-02] MEDS: INSULIN ASPART 100 UNITS/ML 3 ML PEN SC SCH ×4 (09:35→21:00)
[2018-01-02] MEDS ORDERED: FUROSEMIDE INJ 20 MG in SYRINGE 0 ML IV ONE (11:45)
--- NOTE | 2018-01-02 11:56 | Nephrology Consultation ---
Nephrology Consultation Date & Providers Date of Consultation: Jan 02, 2018. Primary Care Provider: Ashwin Gottlieb M.D. Referring Provider: Reason for Consultation CANDACE / CKD History of Present Illness Mr. Pierce is a 67 year old white male who is seen at the request of Dr. Reynolds for evaluation of nonoliguric CANDACE / CKD. Patient receives most of his medical care through the [facility]. Medical records in the [facility] EMR were reviewed today and are summarized as follows: Mr. Pierce has CKD w/ baseline creatinine 1.8. He has a h/o prostate CA and bladder CA. In 2000 he underwent prostatectomy, cystectomy, urethrectomy and appendectomy. He now has a RLQ ileal conduit. His medical history is also significant for obesity, hyperlipidemia, ASCVD, HTN , AODM, COPD, MJ, gout, recurrent urinary tract infections and staghorn calculus of the L kidney. Over the last two weeks Mr. Pierce has suffered from diarrhea. He has had frequent falls. He was recently hospitalized in [place] and diagnosed with a small CVA resulting in L sided weakness. Due to his persistent diarrhea and weakness he was brought to [facility] where he has been admitted for management of dehydration, CANDACE and hyperkalemia. Past Medical/Surgical History Medical: # CKD w/ baseline cr 1.8 # s/p prostatectomy/cystectomy/appendectomy due to CA - RLQ ileal conduit # Obesity # AODM # HTN # MJ - intolerant to CPAP therapy # Chronic low back pain # ASCVD # Pericardial effusion s/p window # COPD # Gout # Recurrent UTI # PTSD # Agent orange exposure while in [place] # CVA w/ left sided weakness Surgical: # Cystectomy # Prostatectomy # Urethrectomy # Appendectomy # Cholecystectomy # Cardiac stent # Pericardial window # R cataract extraction Allergies Coded Allergies: Codeine (Verified Adverse Reaction, Mild, "trips me out", 01/01/18) CONFUSION Promethazine (Verified Adverse Reaction, Unknown, UNCONTROLLED MUSCLE MOVEMENTS, 01/01/18) Inpatient Medications Current Inpatient Medications Medications (Trade) Dose Ordered Sig/Major Route Start Time Stop Time Status Last Admin Dose Admin Sodium Chloride 1,000 ml @ 100 mls/hr Q10H IV 01/01/18 14:02 01/31/18 14:01 01/02/18 05:39 100 MLS/HR Acetaminophen (Tylenol Tab) 650 mg Q4H PRN PO 01/01/18 14:15 01/31/18 14:14 Insulin Aspart (novoLOG ASPART) SLIDING SCALE If C... ACHS SC 01/01/18 16:00 01/31/18 15:59 01/02/18 09:35 1 UNITS Glucose (Glucose 40% Gel) 15-30 GRAMS 15 GRAMS... UD PRN PO 01/01/18 14:15 01/31/18 14:14 Glucose (Glucose Chew Tab) 4-8 Tablets 4 Tabl... UD PRN PO 01/01/18 14:15 01/31/18 14:14 Dextrose (Dextrose 50% 50ML Syringe) 25-50ML 25ML FOR ... UD PRN IV 01/01/18 14:15 01/31/18 14:14 01/01/18 15:07 25 ML Glucagon (Glucagon Inj) 1 mg UD PRN SQ 01/01/18 14:15 01/31/18 14:14 Carbohydrates (Carbohydrates For Hypoglycemia) 15-30 GRAMS 15 grams if BSG 54-69... UD PRN PO 01/01/18 14:15 01/31/18 14:14 Allopurinol (Zyloprim Tab) 300 mg QAM PO 01/02/18 09:00 02/01/18 08:59 01/02/18 07:52 300 MG Aspirin (Ecotrin Tab) 81 mg DAILY PO 01/02/18 09:00 02/01/18 08:59 01/02/18 07:54 81 MG Atorvastatin Calcium (Lipitor Tab) 80 mg QPM PO 01/01/18 21:00 01/31/18 20:59 01/01/18 21:11 80 MG Budesonide/ Formoterol Fumarate (Symbicort 80/ 4.5 Inh) 2 puffs BID INH 01/01/18 21:00 01/31/18 20:59 01/02/18 07:51 2 PUFFS Cholecalciferol (Vitamin D Tab) 1,000 inter.unit QAM PO 01/02/18 09:00 02/01/18 08:59 01/02/18 07:55 1,000 INTER.UNIT Clonazepam (Klonopin Tab) 0.5 mg DAILY PRN PO 01/01/18 15:00 9/1/18 14:59 01/01/18 23:33 0.5 MG Clopidogrel Bisulfate (plAVix TAB) 75 mg DAILY PO 01/02/18 09:00 02/01/18 08:59 01/02/18 07:55 75 MG Cyclobenzaprine HCl (Flexeril Tab) 10 mg BID PRN PO 01/01/18 15:00 01/31/18 14:59 Albuterol/ Ipratropium (Duoneb) 3 ml QID PRN INH 01/01/18 15:00 01/31/18 14:59 Loratadine (Claritin Tab) 10 mg DAILY PO 01/02/18 09:00 02/01/18 08:59 01/02/18 07:53 10 MG Metoprolol Tartrate (Lopressor Tab) 75 mg BID PO 01/01/18 21:00 01/31/18 20:59 01/02/18 07:52 75 MG Nitroglycerin (Nitrostat Tab) 0.4 mg UD PRN SL 01/01/18 16:30 01/31/18 16:29 Pantoprazole Sodium (Protonix Tab) 40 mg DAILY PO 01/02/18 09:00 02/01/18 08:59 01/02/18 07:54 40 MG Paroxetine HCl (pAXil CONTROLLED REL TAB) 25 mg HS PO 01/01/18 21:00 01/31/18 20:59 01/01/18 21:11 25 MG Trazodone HCl (Desyrel Tab) 150 mg HS PO 01/01/18 21:00 01/31/18 20:59 01/01/18 21:13 150 MG Cyanocobalamin (Vitamin B-12 Tab) 2,500 mcg DAILY PO 01/02/18 09:00 02/01/18 08:59 01/02/18 07:52 2,500 MCG Buspirone HCl (Buspar Tab) 20 mg BID PO 01/01/18 21:00 01/31/18 20:59 01/02/18 07:55 20 MG Gabapentin (Neurontin Cap) 200 mg TID PO 01/01/18 21:00 01/31/18 20:59 01/02/18 07:55 200 MG Heparin Sodium (Porcine) (Heparin Sq 5000 Unit/0.5ml) 5,000 unit Q12H SQ 01/01/18 21:00 01/31/18 18:14 01/02/18 08:02 5,000 UNIT Family History FH: coronary artery disease Negative for CKD / ESRD Social History Smoking Status: Former Smoker (Smoked 35 pack years and quit in 2000) Alcohol Use: none Drug Use: none Marital Status: Housing Status: lives with family (Lives with and his daughter and son-in- law's house) Occupation: retired (Formerly in the in [place] and exposed to agent orange) . Resides in [place], [place]. Retired. 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 No recent alcohol use. Review of Systems Constitutional: No fever Respiratory: No cough Cardiovascular: No chest pain Abdomen: + diarrhea, No pain Genitourinary - Male: No hematuria, No dysuria, No urinary frequency Integumentary: No rash A complete review of systems was performed. Pertinent positives are noted above. All other systems are negative. Physical Exam Date Time Temp Pulse Resp B/P (MAP) Pulse Ox O2 Delivery O2 Flow Rate FiO2 01/02/18 11:24 36.7 55 20 132/76 (94) 96 01/02/18 07:50 94 Room Air 01/02/18 07:50 64 116/58 (77) 01/02/18 07:38 36.6 64 20 134/75 (94) 94 Room Air 01/02/18 04:08 36.5 62 19 115/72 (86) 94 CPAP 01/02/18 00:00 Room Air CPAP 01/01/18 23:12 36.5 61 20 114/72 (86) 93 CPAP 01/01/18 18:21 64 18 93 Room Air 01/01/18 17:18 36.4 63 20 115/73 (87) 94 Room Air 01/01/18 17:00 93 Room Air 01/01/18 16:45 62 17 126/69 99 01/01/18 16:30 64 16 101/64 98 Nasal Cannula 2.0 01/01/18 15:31 111/77 01/01/18 15:28 60 17 98 Nasal Cannula 2.0 01/01/18 15:01 149/75 99 Nasal Cannula 2.0 01/01/18 14:58 169/83 01/01/18 14:57 70 21 01/01/18 14:02 134/64 01/01/18 13:57 61 16 94 01/01/18 13:45 94 Room Air 01/01/18 13:32 132/90 01/01/18 13:27 61 18 98 01/01/18 13:02 145/76 01/01/18 12:57 61 18 97 01/01/18 12:32 146/82 01/01/18 12:27 74 01/01/18 12:13 60 01/01/18 12:00 60 114/72 94 Room Air General Appearance: no apparent distress Head: normocephalic, atraumatic Eyes: PERRL, EOMI ENT: + pertinent finding (dry mucous membranes) Neck: no adenopathy, no JVD Respiratory/Chest: lungs clear, no respiratory distress Cardiovascular: regular rate, rhythm Abdomen/GI: normal bowel sounds, non tender, soft Genitourinary - Male: + pertinent finding (lee catheter in place draining clear yellow urine) Extremities/Musculoskelatal: no calf tenderness, no pedal edema Neurologic/Psych: alert Skin: warm/dry Laboratory Results Last 24 Hours Test 01/01/18 11:40 01/01/18 14:00 01/01/18 14:37 01/01/18 14:59 White Blood Count 5.59 K/uL Red Blood Count 4.83 M/uL Hemoglobin 14.8 g/dL Hematocrit 44.1 % Mean Corpuscular Volume 91.3 fL Mean Corpuscular Hemoglobin 30.6 pg Mean Corpuscular Hemoglobin Concent 33.6 g/dl Platelet Count 128 K/uL Mean Platelet Volume 13.0 fL Neutrophils (%) (Auto) 71.6 % Lymphocytes (%) (Auto) 17.9 % Monocytes (%) (Auto) 7.5 % Eosinophils (%) (Auto) 2.1 % Basophils (%) (Auto) 0.7 % Neutrophils # (Auto) 4.00 K/uL Lymphocytes # (Auto) 1.00 K/uL Monocytes # (Auto) 0.42 K/uL Eosinophils # (Auto) 0.12 K/uL Basophils # (Auto) 0.04 K/uL RDW Standard Deviation 49.0 fL RDW Coefficient of Variation 14.7 % Immature Granulocyte % (Auto) 0.2 % Immature Granulocyte # (Auto) 0.01 K/uL Platelet Estimate DECREASED Red Blood Cell Morphology Unremarkable Prothrombin Time 10.3 SECONDS Prothromb Time International Ratio 1.0 Activated Partial Thromboplast Time 27.7 SECONDS Partial Thromboplastin Ratio 1.1 Sodium Level 134 mmol/L Potassium Level 6.7 mmol/L Chloride Level 104 mmol/L Carbon Dioxide Level 25 mmol/L Anion Gap 5.0 mmol/L Blood Urea Nitrogen 99 mg/dl Creatinine 3.71 mg/dl Est Creatinine Clear Calc Drug Dose 24.2 ml/min Estimated GFR () 18.2 Estimated GFR (Non- 15.7 BUN/Creatinine Ratio 26.7 Random Glucose 98 mg/dl Calcium Level 9.5 mg/dl Phosphorus Level 4.8 mg/dl Magnesium Level 2.1 mg/dl Total Bilirubin 0.6 mg/dl Aspartate Amino Transf (AST/SGOT) 30 U/L Alanine Aminotransferase (ALT/SGPT) 30 U/L Alkaline Phosphatase 113 U/L Troponin I < 0.015 ng/ml Total Protein 8.2 gm/dl Albumin 4.4 gm/dl Globulin 3.8 gm/dl Albumin/Globulin Ratio 1.2 Thyroid Stimulating Hormone (TSH) 2.080 uIu/ml Urine Color YELLOW Urine Appearance CLEAR Urine pH 5.0 Urine Specific [place] 1.016 Urine Protein NEG Urine Glucose (UA) NEG Urine Ketones NEG Urine Occult Blood NEG Urine Nitrite POS Urine Bilirubin NEG Urine Urobilinogen NEG Urine Leukocyte Esterase NEG Urine WBC (Auto) 1-5 /hpf Urine RBC (Auto) 0-4 /hpf Urine Hyaline Casts (Auto) 1-5 /lpf Urine Epithelial Cells (Auto) 5-10 /lpf Urine Bacteria (Auto) 1+ Bedside Glucose 149 mg/dl 118 mg/dl Test 01/01/18 15:12 01/01/18 16:19 01/01/18 17:15 01/01/18 19:56 Bedside Glucose 144 mg/dl 154 mg/dl Sodium Level 136 mmol/L 138 mmol/L Potassium Level 6.3 mmol/L 5.4 mmol/L Chloride Level 107 mmol/L 106 mmol/L Carbon Dioxide Level 24 mmol/L 27 mmol/L Anion Gap 5.0 mmol/L 5.0 mmol/L Blood Urea Nitrogen 100 mg/dl 96 mg/dl Creatinine 3.51 mg/dl 3.49 mg/dl Est Creatinine Clear Calc Drug Dose 25.6 ml/min 25.7 ml/min Estimated GFR () 19.4 19.6 Estimated GFR (Non- 16.8 16.9 BUN/Creatinine Ratio 28.6 27.4 Random Glucose 143 mg/dl 120 mg/dl Calcium Level 9.2 mg/dl 9.2 mg/dl Test 01/01/18 20:38 01/02/18 02:04 01/02/18 05:41 01/02/18 07:35 Bedside Glucose 112 mg/dl 110 mg/dl 101 mg/dl Sodium Level 137 mmol/L Potassium Level 5.9 mmol/L Chloride Level 108 mmol/L Carbon Dioxide Level 23 mmol/L Anion Gap 6.0 mmol/L Blood Urea Nitrogen 92 mg/dl Creatinine 3.08 mg/dl Est Creatinine Clear Calc Drug Dose 29.1 ml/min Estimated GFR () 22.7 Estimated GFR (Non- 19.6 BUN/Creatinine Ratio 29.7 Random Glucose 88 mg/dl Estimated Average Glucose 192 mg/dl Hemoglobin A1c 8.3 % Calcium Level 8.2 mg/dl Phosphorus Level 3.4 mg/dl Magnesium Level 1.7 mg/dl Impression (1) CANDACE (acute kidney injury) (2) Chronic kidney disease stage 3 (3) Diarrhea (4) Dehydration (5) Hyperkalemia (6) Generalized weakness Recommendations ACUTE KIDNEY INJURY: -- Urine sediment is benign. Renal US shows 9 cm kidneys w/ cortical atrophy but no obstruction. Clinically suspect CANDACE related to intravascular volume contraction -- Patient appears clinically volume contracted. Increase IVF to 0.9 NS at 125 cc/min -- Monitor serial PRP HYPERKALEMIA: -- Will increase IVF to promote diuresis. Patient is nonoliguric. Will provide one dose IV Furosemide. Avoid Kayexelate due to presenting symptom of diarrhea -- Low potassium diet ID: -- Urinalysis was not c/w infection. Culture is pending -- C. Difficile toxin assay was negative. Await result of stool culture testing
--- NOTE | 2018-01-02 13:29 | Hospitalist Progress Note ---
Hospitalist Progress Note Date of Service Jan 02, 2018. Subjective Pt evaluation today including: conversation w/ patient, conversation w/ family Pt feeling better, feels stronger overall. Denies CP or SOB. Still with loose stools but improving from previous. Making urine. All Other Systems: Reviewed and Negative Objective Vital Signs Date Time Temp Pulse Resp B/P (MAP) Pulse Ox O2 Delivery O2 Flow Rate FiO2 01/02/18 13:06 63 145/71 (95) 01/02/18 11:24 36.7 55 20 132/76 (94) 96 01/02/18 07:50 94 Room Air 01/02/18 07:50 64 116/58 (77) 01/02/18 07:38 36.6 64 20 134/75 (94) 94 Room Air 01/02/18 04:08 36.5 62 19 115/72 (86) 94 CPAP 01/02/18 00:00 Room Air CPAP 01/01/18 23:12 36.5 61 20 114/72 (86) 93 CPAP 01/01/18 18:21 64 18 93 Room Air 01/01/18 17:18 36.4 63 20 115/73 (87) 94 Room Air 01/01/18 17:00 93 Room Air 01/01/18 16:45 62 17 126/69 99 01/01/18 16:30 64 16 101/64 98 Nasal Cannula 2.0 01/01/18 15:31 111/77 01/01/18 15:28 60 17 98 Nasal Cannula 2.0 01/01/18 15:01 149/75 99 Nasal Cannula 2.0 01/01/18 14:58 169/83 01/01/18 14:57 70 21 01/01/18 14:02 134/64 01/01/18 13:57 61 16 94 01/01/18 13:45 94 Room Air 01/01/18 13:32 132/90 01/01/18 13:27 61 18 98 Physical Exam General Appearance: WD/WN, no apparent distress, + obese Eyes: normal inspection, sclerae normal ENT: hearing grossly normal, + pertinent finding (Right submandibular swelling , no erythema) Neck: trachea midline Respiratory/Chest: lungs clear, normal breath sounds, no respiratory distress, no accessory muscle use Cardiovascular: regular rate, rhythm, no edema, no murmur Abdomen: normal bowel sounds, non tender, soft Extremities: normal inspection, no pedal edema, no calf tenderness Neurologic/Psychiatric: alert, normal mood/affect, oriented x 3 Skin: normal color, warm/dry, no rash Laboratory Results Last 24 Hours Test 01/01/18 14:00 01/01/18 14:37 01/01/18 14:59 01/01/18 15:12 Urine Color YELLOW Urine Appearance CLEAR Urine pH 5.0 Urine Specific [place] 1.016 Urine Protein NEG Urine Glucose (UA) NEG Urine Ketones NEG Urine Occult Blood NEG Urine Nitrite POS Urine Bilirubin NEG Urine Urobilinogen NEG Urine Leukocyte Esterase NEG Urine WBC (Auto) 1-5 /hpf Urine RBC (Auto) 0-4 /hpf Urine Hyaline Casts (Auto) 1-5 /lpf Urine Epithelial Cells (Auto) 5-10 /lpf Urine Bacteria (Auto) 1+ Bedside Glucose 149 mg/dl 118 mg/dl 144 mg/dl Test 01/01/18 16:19 01/01/18 17:15 01/01/18 19:56 01/01/18 20:38 Sodium Level 136 mmol/L 138 mmol/L Potassium Level 6.3 mmol/L 5.4 mmol/L Chloride Level 107 mmol/L 106 mmol/L Carbon Dioxide Level 24 mmol/L 27 mmol/L Anion Gap 5.0 mmol/L 5.0 mmol/L Blood Urea Nitrogen 100 mg/dl 96 mg/dl Creatinine 3.51 mg/dl 3.49 mg/dl Est Creatinine Clear Calc Drug Dose 25.6 ml/min 25.7 ml/min Estimated GFR () 19.4 19.6 Estimated GFR (Non- 16.8 16.9 BUN/Creatinine Ratio 28.6 27.4 Random Glucose 143 mg/dl 120 mg/dl Calcium Level 9.2 mg/dl 9.2 mg/dl Bedside Glucose 154 mg/dl 112 mg/dl Test 01/02/18 02:04 01/02/18 05:41 01/02/18 07:35 01/02/18 11:40 Bedside Glucose 110 mg/dl 101 mg/dl 138 mg/dl Sodium Level 137 mmol/L Potassium Level 5.9 mmol/L Chloride Level 108 mmol/L Carbon Dioxide Level 23 mmol/L Anion Gap 6.0 mmol/L Blood Urea Nitrogen 92 mg/dl Creatinine 3.08 mg/dl Est Creatinine Clear Calc Drug Dose 29.1 ml/min Estimated GFR () 22.7 Estimated GFR (Non- 19.6 BUN/Creatinine Ratio 29.7 Random Glucose 88 mg/dl Estimated Average Glucose 192 mg/dl Hemoglobin A1c 8.3 % Calcium Level 8.2 mg/dl Phosphorus Level 3.4 mg/dl Magnesium Level 1.7 mg/dl Assessment and Plan This patient is a 67-year-old male with a history of COPD, paroxysmal atrial fibrillation not on anticoagulation due to history of bleeding, chronic diastolic CHF, DM 2, permanent pacemaker, CAD status post stents, CKD stage III , TIA/CVA, HTN, dyslipidemia, bladder cancer status post cystectomy and urostomy , prostate cancer status post prostatectomy, peripheral neuropathy, nephrolithiasis, here with persistent dizziness, weakness with almost daily falls for several weeks. He has also had multiple episodes of diarrhea daily for several weeks after recent hospitalization for UTI and acute CVA. In the ER , he was found to have a creatinine of 3.71, with a potassium elevated at 6.7. He had no changes on his ECG. He was given IV calcium gluconate, insulin and D50, and a nebulizer treatment. He was also given a liter of IV fluids. Other labs were fairly unremarkable. CANDACE in the setting of CKD stage III/hyperkalemia-likely secondary to dehydration from GI losses. BUN is quite elevated on admission. Hyperkalemia has been persistent, but is finally improving today after HCO3 administration, 2 rounds of insulin/D50 and albuterol Has urostomy bag in place and is making plenty of clear urine UA is positive for nitrate, but no WBCs-unclear of the significance of this, but not likely to have an ongoing UTI Renal US without obstruction Product Owner improved today to 3.08 from 3.71 on admission BPs and volume status acceptable -continue telemetry -Nephrology [id number] a dose of IV lasix 20mg x 1 today -increased normal saline to 125 ML's per hour as per Nephro today -Check BMP again this afternoon -Follow urine culture but will hold off on antibiotics for now given no WBCs in the urine Diarrhea-came on after taking antibiotics for UTI about 3 weeks ago -C. difficile is negative -IV fluid hydration as above -add on cholestyramine, probiotic -f/u stool cx Dizziness/weakness/recurrent falls-all likely secondary to history of recent stroke plus renal failure and dehydration as above. Could also be from excessive gabapentin as this is dosed renally and he is in acute kidney failure -Hydrating as above -Treating renal failure -PT/OT consultation -Reducing dose of gabapentin as below CAD/HTN/chronic diastolic CHF/pacemaker status/dyslipidemia-all stable at this time. Troponin negative 1 and blood pressures are acceptable. ECG with ventricular paced rhythm. He does not have any chest pain. He is dehydrated and not volume overloaded -We will continue aspirin, Plavix -Continue atorvastatin 80 mg once daily -Continue metoprolol tartrate 75 mg p.o. twice daily -He follows routinely with the arch cushion skiving machine operator in [place] [facility] the [place] Paroxysmal atrial fibrillation-no longer on anticoagulation due to recurrent issues with hematuria -Continue metoprolol -Pacemaker in place Depression/anxiety-stable -Continue fluoxetine, trazodone Peripheral neuropathy-stable -Continue gabapentin but renally dose to 200 mg p.o. bid Thrombocytopenia-mild in the 120s on admisison -follow CBC -check B12 level in AM DMII, not on senior living insulin, not well controlled. HgbA1C here is 8.1%, but with controlled lgucoses here -continue accuchecks, SSI -holding home glipizide Prophylaxis-SCDs, SQ heparin Disposition-continue telemetry given ongoing electrolyte issues Full code
[2018-01-02 15:40] LABS: CALCIUM 8.4 mg/dl (8.5-10.1); CREATININE 3.09 mg/dl (0.60-1.40); POTASSIUM 5.4 mmol/L (3.5-5.1)
[2018-01-02] MEDS: ATORVASTATIN 40 MG TAB PO SCH (19:48)
[2018-01-02] MEDS: TRAZODONE HCL 100 MG TAB PO SCH (19:50)
[2018-01-02] MEDS: PAROXETINE 12.5 MG TABCR PO SCH (19:52)
[2018-01-03] VITALS (8 sets, daily range): BP systolic 129–180; BP diastolic 70–91; PULSE 59–69; TEMP 36.4–36.8; O2SAT 92–95
[2018-01-03] MEDS ORDERED: NURSING VERBAL MED ORDER ONE (06:15)
[2018-01-03 06:49] LABS: CALCIUM 8.3 mg/dl (8.5-10.1); CREATININE 2.4 mg/dl (0.60-1.40); POTASSIUM 5.2 mmol/L (3.5-5.1)
[2018-01-03] MEDS: BUDESONIDE/FORMOTEROL FUMARATE 80/4.5 60 PUFFS/INHALER INH SCH ×2 (08:12→20:58)
[2018-01-03] MEDS: ALLOPURINOL 300 MG TAB PO SCH (08:12)
[2018-01-03] MEDS: CHOLECALCIFEROL 1000 INTER.UNIT TAB PO SCH (08:13)
[2018-01-03] MEDS: GABAPENTIN 100 MG CAP PO SCH ×2 (08:13→20:59)
[2018-01-03] MEDS: CLOPIDOGREL BISULFATE 75 MG TAB PO SCH (08:13)
[2018-01-03] MEDS: SACCHAROMYCES BOUL (FLORASTOR) 250 MG CAP PO SCH (08:14)
[2018-01-03] MEDS: PANTOprazole SOD 40 MG TAB PO SCH (08:14)
[2018-01-03] MEDS: METOPROLOL TARTRATE 25 MG TAB PO SCH ×2 (08:14→21:01)
[2018-01-03] MEDS: LORATADINE 10 MG TAB PO SCH (08:14)
[2018-01-03] MEDS: CYCLOBENZAPRINE HCL 10 MG TAB PO PRN (08:15)
[2018-01-03] MEDS: ASPIRIN 81 MG ECTAB PO SCH (08:15)
[2018-01-03] MEDS: CYANOCOBALAMIN 2,500 MCG SUBL TAB PO SCH (08:15)
[2018-01-03] MEDS: INSULIN ASPART 100 UNITS/ML 3 ML PEN SC SCH ×4 (08:17→20:57)
[2018-01-03] MEDS: SODIUM CHLORIDE 0.9% 1000ML 1,000 ML IV SCH ×3 (08:23→23:35)
[2018-01-03] MEDS: HEPARIN SOD 5000 UNIT/0.5 ML CARP SQ SCH ×2 (09:05→21:05)
[2018-01-03] MEDS: CHOLESTYRAMINE LIGHT 4 GM PKT PO SCH ×2 (10:16→22:17)
--- NOTE | 2018-01-03 11:27 | Nephrology Progress Note ---
Nephrology Progress Note Date of Service Jan 03, 2018. Chief Complaint CANDACE / CKD Subjective Mr. Pierce was seen & examined in his hospital room this morning. He complains of persistent diarrhea and weakness. He denies fever or flank pain. Review of Systems Constitutional: No fever Cardiovascular: No chest pain Respiratory: No dyspnea at rest Abdomen: + diarrhea, No pain, No vomiting Extremities: No leg edema A complete review of systems was performed. Pertinent positives are noted above. All other systems are negative. Vital Signs Last 8 Hrs Date Time Temp Pulse Resp B/P (MAP) Pulse Ox O2 Delivery O2 Flow Rate FiO2 01/03/18 09:35 36.8 60 16 143/71 (95) 92 Room Air 01/03/18 08:00 95 Room Air CPAP 01/03/18 07:24 36.4 63 20 180/90 (120) 95 01/03/18 03:58 36.7 60 20 148/91 (110) 92 CPAP Last Recorded Weight Weight (Kilograms): 122.100 Physical Exam General Appearance: no apparent distress Head: atraumatic Eyes: PERRL, EOMI Neck: no adenopathy Respiratory/Chest: lungs clear, no respiratory distress Cardiovascular: regular rate, rhythm Abdomen/GI: normal bowel sounds, non tender, soft Extremities/Musculoskelatal: no calf tenderness, no pedal edema Neurologic/Psych: alert, oriented x 3 Family History FH: coronary artery disease Negative for CKD / ESRD Social History Smoking Status: Former smoker Alcohol Use: none Drug Use: none Marital Status: Housing Status: lives with family (Lives with and his daughter and son-in- law's house) Occupation: retired (Formerly in the in [place] and exposed to agent orange) . Resides in [place], [place]. Retired. 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 No recent alcohol use. Laboratory Results Past 24 Hours 01/02/18 15:12 01/03/18 05:59 Test 01/02/18 11:40 01/02/18 15:12 01/02/18 16:22 01/02/18 21:03 Bedside Glucose 138 mg/dl (70-99) 101 mg/dl (70-99) 112 mg/dl (70-99) Anion Gap 3.0 mmol/L (3-11) Est Creatinine Clear Calc Drug Dose 28.8 ml/min Estimated GFR () 22.7 Estimated GFR (Non- 19.5 BUN/Creatinine Ratio 28.1 (10-20) Calcium Level 8.4 mg/dl (8.5-10.1) Test 01/03/18 05:59 01/03/18 07:33 Anion Gap 6.0 mmol/L (3-11) Est Creatinine Clear Calc Drug Dose 37.0 ml/min Estimated GFR () 30.7 Estimated GFR (Non- 26.5 BUN/Creatinine Ratio 31.6 (10-20) Calcium Level 8.3 mg/dl (8.5-10.1) Vitamin B12 Level 800 pg/mL (211-911) Bedside Glucose 103 mg/dl (70-99) Allergies Coded Allergies: Codeine (Verified Adverse Reaction, Mild, "trips me out", 01/01/18) CONFUSION Promethazine (Verified Adverse Reaction, Unknown, UNCONTROLLED MUSCLE MOVEMENTS, 01/01/18) Medications Current Inpatient Medications Medications (Trade) Dose Ordered Sig/Major Route Start Time Stop Time Status Last Admin Dose Admin Sodium Chloride 1,000 ml @ 125 mls/hr Q8H IV 01/01/18 14:02 01/31/18 14:01 01/03/18 08:23 125 MLS/HR Acetaminophen (Tylenol Tab) 650 mg Q4H PRN PO 01/01/18 14:15 01/31/18 14:14 Insulin Aspart (novoLOG ASPART) SLIDING SCALE If C... ACHS SC 01/01/18 16:00 01/31/18 15:59 01/02/18 13:02 2 UNITS Glucose (Glucose 40% Gel) 15-30 GRAMS 15 GRAMS... UD PRN PO 01/01/18 14:15 01/31/18 14:14 Glucose (Glucose Chew Tab) 4-8 Tablets 4 Tabl... UD PRN PO 01/01/18 14:15 01/31/18 14:14 Dextrose (Dextrose 50% 50ML Syringe) 25-50ML 25ML FOR ... UD PRN IV 01/01/18 14:15 01/31/18 14:14 01/01/18 15:07 25 ML Glucagon (Glucagon Inj) 1 mg UD PRN SQ 01/01/18 14:15 01/31/18 14:14 Carbohydrates (Carbohydrates For Hypoglycemia) 15-30 GRAMS 15 grams if BSG 54-69... UD PRN PO 01/01/18 14:15 01/31/18 14:14 Allopurinol (Zyloprim Tab) 300 mg QAM PO 01/02/18 09:00 02/01/18 08:59 01/03/18 08:12 300 MG Aspirin (Ecotrin Tab) 81 mg DAILY PO 01/02/18 09:00 02/01/18 08:59 01/03/18 08:15 81 MG Atorvastatin Calcium (Lipitor Tab) 80 mg QPM PO 01/01/18 21:00 01/31/18 20:59 01/02/18 19:48 80 MG Budesonide/ Formoterol Fumarate (Symbicort 80/ 4.5 Inh) 2 puffs BID INH 01/01/18 21:00 01/31/18 20:59 01/03/18 08:12 2 PUFFS Cholecalciferol (Vitamin D Tab) 1,000 inter.unit QAM PO 01/02/18 09:00 02/01/18 08:59 01/03/18 08:13 1,000 INTER.UNIT Clonazepam (Klonopin Tab) 0.5 mg DAILY PRN PO 01/01/18 15:00 01/31/18 14:59 01/01/18 23:33 0.5 MG Clopidogrel Bisulfate (plAVix TAB) 75 mg DAILY PO 01/02/18 09:00 02/01/18 08:59 01/03/18 08:13 75 MG Cyclobenzaprine HCl (Flexeril Tab) 10 mg BID PRN PO 01/01/18 15:00 01/31/18 14:59 01/03/18 08:15 10 MG Albuterol/ Ipratropium (Duoneb) 3 ml QID PRN INH 01/01/18 15:00 01/31/18 14:59 Loratadine (Claritin Tab) 10 mg DAILY PO 01/02/18 09:00 02/01/18 08:59 01/03/18 08:14 10 MG Metoprolol Tartrate (Lopressor Tab) 75 mg BID PO 01/01/18 21:00 01/31/18 20:59 01/03/18 08:14 75 MG Nitroglycerin (Nitrostat Tab) 0.4 mg UD PRN SL 01/01/18 16:30 01/31/18 16:29 Pantoprazole Sodium (Protonix Tab) 40 mg DAILY PO 01/02/18 09:00 02/01/18 08:59 01/03/18 08:14 40 MG Paroxetine HCl (pAXil CONTROLLED REL TAB) 25 mg HS PO 01/01/18 21:00 01/31/18 20:59 01/02/18 19:52 25 MG Trazodone HCl (Desyrel Tab) 150 mg HS PO 01/01/18 21:00 01/31/18 20:59 01/02/18 19:50 150 MG Cyanocobalamin (Vitamin B-12 Tab) 2,500 mcg DAILY PO 01/02/18 09:00 02/01/18 08:59 01/03/18 08:15 2,500 MCG Buspirone HCl (Buspar Tab) 20 mg BID PO 01/01/18 21:00 01/31/18 20:59 01/03/18 08:13 20 MG Heparin Sodium (Porcine) (Heparin Sq 5000 Unit/0.5ml) 5,000 unit Q12H SQ 01/01/18 21:00 01/31/18 18:14 01/03/18 09:05 5,000 UNIT Cholestyramine Resin (Questran Powder Light) 4 gm BID@10,22 PO 01/03/18 10:00 02/02/18 09:59 01/03/18 10:16 4 GM Saccharomyces Boulardii (Florastor Cap) 250 mg DAILY PO 01/03/18 09:00 02/02/18 08:59 01/03/18 08:14 250 MG Gabapentin (Neurontin Cap) 200 mg BID PO 01/03/18 09:00 01/31/18 20:59 01/03/18 08:13 200 MG Impression (1) CANDACE (acute kidney injury) (2) Chronic kidney disease stage 3 (3) Diarrhea (4) Dehydration (5) Hyperkalemia (6) Generalized weakness Recommendations ACUTE KIDNEY INJURY: -- Urine sediment is benign. Renal US shows 9 cm kidneys w/ cortical atrophy but no obstruction. Clinically suspect CANDACE related to intravascular volume contraction -- Patient appears clinically volume contracted. Continue IVF 0.9 NS at 125 cc/ min -- Monitor serial PRP HYPERKALEMIA: -- Improved. Continue hydration to promote diuresis. Patient is nonoliguric. Will provide one dose IV Furosemide. -- Low potassium diet ID: -- Urinalysis was not c/w infection. There is no pyuria. Urine culture w/ G+ and G- bacteria due to collection for ileal conduit -- C. Difficile toxin assay was negative. Await result of stool culture testing
[2018-01-03] MEDS ORDERED: FUROSEMIDE INJ 20 MG in SYRINGE 0 ML IV ONE (11:30)
--- NOTE | 2018-01-03 20:24 | Progress Note ---
Subjective Date of Service: Jan 03, 2018. 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 I reviewed his records ( brought these herself) and he was admitted to a hospital in [place], [place] for about 5-6 days records suggest he had altered MS, slurred speech, left-sided weakness, UTI and had acute kidney injury it appears his creatinine improved to 1.6 prior to discharge echo did not show evidence of thrombus no significant ICA stenosis b/l CT head with OLD left parietal lobe stroke but no new stroke or ICH records suggest a neurologist saw him and questioned a diagnosis of parkinson's disease a trial of sinemet was ordered per the notes he was d/c and upon return to [place] he went to [facility] took him off the sinemet reports ongoing diarrhea - watery, liquid in nature also reports confusion is improving lastly, reports he has NOT tolerated coumadin in the past due to significant bleeding via his urostomy Problem List Medical Problems: (1) Acute bronchitis Status: Acute (2) Acute renal failure Status: Acute (3) Chronic obstructive pulmonary disease Status: Acute (4) COPD exacerbation Status: Acute (5) Dehydration Status: Acute (6) Diarrhea Status: Acute (7) Fever Status: Acute (8) Generalized weakness Status: Acute (9) Hyperkalemia Status: Acute (10) Hypocalcemia Status: Acute (11) Hypomagnesemia Status: Acute (12) Hypoxia Status: Acute (13) Influenza A Status: Acute (14) Knee effusion, left Status: Acute (15) Malaise Status: Acute (16) Neuropathic pain Status: Acute (17) Renal insufficiency Status: Acute (18) Sinusitis Status: Acute (19) SOB (shortness of breath) Status: Acute (20) Stroke-like symptom Status: Acute (21) Vomiting Status: Acute Review of Systems Constitutional: No fever, No chills Respiratory: No cough, No shortness of breath Cardiac: No chest pain Abdomen: No pain, No nausea, No vomiting Objective Vital Signs Date Time Temp Pulse Resp B/P (MAP) Pulse Ox O2 Delivery O2 Flow Rate FiO2 01/03/18 16:00 Room Air 01/03/18 14:46 36.6 59 20 160/82 (108) 95 01/03/18 11:25 36.4 66 16 147/76 (99) 95 Room Air 01/03/18 09:35 36.8 60 16 143/71 (95) 92 Room Air 01/03/18 08:00 95 Room Air CPAP 01/03/18 07:24 36.4 63 20 180/90 (120) 95 01/03/18 03:58 36.7 60 20 148/91 (110) 92 CPAP 01/02/18 23:36 36.4 61 20 131/71 (91) 92 CPAP 01/02/18 23:29 Room Air 01/02/18 20:00 36.6 60 18 165/83 (110) 96 Room Air 01/02/18 20:00 Room Air CPAP Physical Exam General Appearance: no apparent distress, + obese ENT: pharynx normal Neck: no JVD Respiratory/Chest: lungs clear, no respiratory distress, no accessory muscle use Cardiovascular: regular rate, rhythm, no gallop, no murmur Abdomen: normal bowel sounds, non tender, soft, no organomegaly, + pertinent finding (urostomy on abdominal wall - clear urine present) Extremities: no pedal edema Neurologic/Psychiatric: no motor/sensory deficits (strength nearly 5/5 b/l upper & lower exts), alert, oriented x 3, + pertinent finding (unable to perform serial months backwards) Laboratory Results Last 24 Hours Test 01/02/18 21:03 01/03/18 05:59 01/03/18 07:33 01/03/18 11:23 Bedside Glucose 112 mg/dl 103 mg/dl 118 mg/dl Sodium Level 140 mmol/L Potassium Level 5.2 mmol/L Chloride Level 111 mmol/L Carbon Dioxide Level 23 mmol/L Anion Gap 6.0 mmol/L Blood Urea Nitrogen 76 mg/dl Creatinine 2.40 mg/dl Est Creatinine Clear Calc Drug Dose 37.0 ml/min Estimated GFR () 30.7 Estimated GFR (Non- 26.5 BUN/Creatinine Ratio 31.6 Random Glucose 101 mg/dl Calcium Level 8.3 mg/dl Vitamin B12 Level 800 pg/mL Test 01/03/18 16:05 Bedside Glucose 115 mg/dl Assessment and Plan 67-year-old male with a history of COPD, paroxysmal atrial fibrillation not on anticoagulation due to history of bleeding, chronic diastolic CHF, DM 2, permanent pacemaker, CAD status post stents, CKD stage III, TIA/CVA, HTN, dyslipidemia, bladder cancer status post cystectomy and urostomy, prostate cancer status post prostatectomy, peripheral neuropathy: 1. acute kidney injury - slowly improving with supportive care, IVF, etc. Nephrology continues to follow; efforts appreciated. Suspect pre-renal etiology as cause. According to records his baseline creatinine is about 1.5-1.6. BMP in am. 2. CKD stage 3 - baseline creatinine about 1.5-1.6. Daily BMP. 3. hyperkalemia - 2nd to #1 - nearly resolved. 4. chronic diarrhea - c. diff negative. Stool cx pending. Due to exposure to lakes, etc in [place] send O & P and giardia. Cont questran powder. 5. metabolic encephalopathy - resolving. Suspect this was due to significant prerenal azotemia. Cannot rule out infectious causes. Cannot rule out new PARTNERSHIP DEVELOPMENT MANAGER insult (ie - stroke) but exam not consistent with such. 6. dizziness - suspect due to orthostasis as he was orthostatic at presentation - likely from significant volume depletion. B12 wnl. Nothing on CT head to account for dizziness. Echo in [place] in November 2017 without valvular heart disease. Gabapentin could have contributed. 7. chronic diastolic CHF - compensated. 8. CAD - no evidence of ischemic event. 9. urostomy status - due to prior h/o bladder cancer - urostomy functioning well. Although urine cx is growing 2 pathogens he is not symptomatic (no fever, eating well, etc). Would not Rx w/ abx at this time. He will always have bacteria in his urostomy bag. 10. HTN - continue beta bertin; once renal function is improved resume lisinopril. 11. pacemaker status - noted. Unfortunately his device is NOT MRI-compatible. 12. paroxysmal atrial fibrillation - no longer on anticoagulation due to recurrent issues with hematuria. This is unfortunate due to known strokes. 13. Depression/anxiety - continue fluoxetine, trazodone. 14. Peripheral neuropathy - gabapentin BID. Neuropathy could be contributing to falls and dizziness/disequilibrium. 15. thrombocytopenia - b12 wnl; check folic acid level tomorrow; tsh wnl. 16. T2DM - holding oral agents; controlled w/ novolog meals/bedtime; consider lantus if sugars rise. 17. DVT proph - heparin SC. 18. cerebrovascular disease - prior stroke(s) - cont asa, plavix for secondary prophylaxis. extensively updated at bedside today PT, OT evals Continued [facility] stay due to: ambulation difficulties, multiple IV medications needed Discharge planning: uncertain
[2018-01-03] MEDS: ATORVASTATIN 40 MG TAB PO SCH (20:59)
[2018-01-03] MEDS: PAROXETINE 12.5 MG TABCR PO SCH (21:00)
[2018-01-03] MEDS: TRAZODONE HCL 100 MG TAB PO SCH (21:02)
[2018-01-04 04:00] VITALS: BP 134/86; PULSE 61; TEMP 37.1; O2SAT 95
[2018-01-04 06:07] LABS: HEMATOCRIT 36.8 % (42-52); HEMOGLOBIN 12.2 g/dL (14.0-18.0); MEAN CELL VOLUME 91.1 fL (80-100); MEAN CORPUSCULAR HEMOGLOBIN 30.2 pg (25-34); MEAN CORPUSCULAR HGB CONC 33.2 g/dl (32-36); MEAN PLATELET VOLUME 12.5 fL (7.4-10.4); PLATELET COUNT 106 K/uL (130-400); RED CELL DISTRIBUTION WIDTH CV 14.7 % (11.5-14.5); RED CELL DISTRIBUTION WIDTH SD 49.3 fL (36.4-46.3); WHITE BLOOD COUNT 4.07 K/uL (4.8-10.8)
[2018-01-04 06:21] LABS: CALCIUM 8.2 mg/dl (8.5-10.1); CREATININE 1.99 mg/dl (0.60-1.40); POTASSIUM 4.7 mmol/L (3.5-5.1)
[2018-01-04 07:11] LABS: BASO % 0.5 %; BASO ABS # 0.02 K/uL (0-0.2); EOS % 3.4 %; EOS ABS # 0.14 K/uL (0-0.5); LYMPH % 21.6 %; LYMPH ABS # 0.88 K/uL (1.2-3.4); MONO % 7.1 %; MONO ABS # 0.29 K/uL (0.11-0.59); NEUT % 67.4 %; NEUT ABS # 2.74 K/uL (1.4-6.5)
[2018-01-04 07:28] VITALS: BP 171/90; PULSE 61; TEMP 36.7; O2SAT 96
[2018-01-04 08:00] VITALS: O2SAT 96
[2018-01-04] MEDS: GABAPENTIN 100 MG CAP PO SCH ×2 (08:20→21:07)
[2018-01-04] MEDS: BUDESONIDE/FORMOTEROL FUMARATE 80/4.5 60 PUFFS/INHALER INH SCH ×2 (08:20→21:03)
[2018-01-04] MEDS: CYCLOBENZAPRINE HCL 10 MG TAB PO PRN (08:20)
[2018-01-04] MEDS: SACCHAROMYCES BOUL (FLORASTOR) 250 MG CAP PO SCH (08:20)
[2018-01-04] MEDS: ASPIRIN 81 MG ECTAB PO SCH (08:20)
[2018-01-04] MEDS: CYANOCOBALAMIN 2,500 MCG SUBL TAB PO SCH (08:20)
[2018-01-04] MEDS: ALLOPURINOL 300 MG TAB PO SCH (08:20)
[2018-01-04] MEDS: SODIUM CHLORIDE 0.9% 1000ML 1,000 ML IV SCH (08:20)
[2018-01-04] MEDS: CLOPIDOGREL BISULFATE 75 MG TAB PO SCH (08:21)
[2018-01-04] MEDS: CHOLECALCIFEROL 1000 INTER.UNIT TAB PO SCH (08:21)
[2018-01-04] MEDS: LORATADINE 10 MG TAB PO SCH (08:21)
[2018-01-04] MEDS: PANTOprazole SOD 40 MG TAB PO SCH (08:21)
[2018-01-04] MEDS: METOPROLOL TARTRATE 25 MG TAB PO SCH ×2 (08:21→21:07)
[2018-01-04] MEDS: INSULIN ASPART 100 UNITS/ML 3 ML PEN SC SCH ×4 (08:28→21:00)
[2018-01-04] MEDS: HEPARIN SOD 5000 UNIT/0.5 ML CARP SQ SCH ×2 (08:29→21:11)
[2018-01-04] MEDS ORDERED: NIFEdipine 30 MG CR TAB PO SCH (09:00)
[2018-01-04] MEDS: CHOLESTYRAMINE LIGHT 4 GM PKT PO SCH ×2 (09:48→22:14)
--- NOTE | 2018-01-04 11:13 | Nephrology Progress Note ---
Nephrology Progress Note Date of Service Jan 04, 2018. Chief Complaint CANDACE / CKD Subjective Mr. Pierce was seen & examined in his hospital room this morning. He reports that his diarrhea has resolved. He is tolerating IVF without dyspnea or swelling. He questions whether he should be transferred to [facility] Friday since his condition is improving and he hopes to return home soon. Review of Systems Constitutional: No fever Cardiovascular: No chest pain Respiratory: No dyspnea at rest Abdomen: No pain, No vomiting Extremities: No leg edema A complete review of systems was performed. Pertinent positives are noted above. All other systems are negative. Vital Signs Last 8 Hrs Date Time Temp Pulse Resp B/P (MAP) Pulse Ox O2 Delivery O2 Flow Rate FiO2 01/04/18 08:00 96 Room Air CPAP 01/04/18 07:28 36.7 61 20 171/90 (117) 96 01/04/18 04:00 37.1 61 20 134/86 (102) 95 CPAP Last Recorded Weight Weight (Kilograms): 122.900 Physical Exam General Appearance: no apparent distress Head: normocephalic, atraumatic Eyes: PERRL, EOMI Neck: no adenopathy Respiratory/Chest: lungs clear, normal breath sounds Cardiovascular: regular rate, rhythm Abdomen/GI: normal bowel sounds, non tender, soft Extremities/Musculoskelatal: no calf tenderness, no pedal edema Neurologic/Psych: alert, oriented x 3 Family History FH: coronary artery disease Negative for CKD / ESRD Social History Smoking Status: Former smoker Alcohol Use: none Drug Use: none Marital Status: Housing Status: lives with family (Lives with and his daughter and son-in- law's house) Occupation: retired (Formerly in the in [place] and exposed to agent orange) . Resides in [place], [place]. 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 No recent alcohol use. Laboratory Results Past 24 Hours 01/04/18 05:17 Red Blood Count 4.04, Mean Corpuscular Volume 91.1, Mean Corpuscular Hemoglobin 30.2, Mean Corpuscular Hemoglobin Concent 33.2, Mean Platelet Volume 12.5, Neutrophils (%) (Auto) 67.4, Lymphocytes (%) (Auto) 21.6, Monocytes (%) (Auto) 7.1, Eosinophils (%) (Auto) 3.4, Basophils (%) (Auto) 0.5, Neutrophils # (Auto) 2.74, Lymphocytes # (Auto) 0.88, Monocytes # (Auto) 0.29, Eosinophils # (Auto) 0.14, Basophils # (Auto) 0.02 01/04/18 05:17 Test 01/03/18 11:23 01/03/18 16:05 01/03/18 20:40 01/04/18 05:17 Bedside Glucose 118 mg/dl (70-99) 115 mg/dl (70-99) 139 mg/dl (70-99) White Blood Count 4.07 K/uL (4.8-10.8) Red Blood Count 4.04 M/uL (4.7-6.1) Hemoglobin 12.2 g/dL (14.0-18.0) Hematocrit 36.8 % (42-52) Mean Corpuscular Volume 91.1 fL (80-100) Mean Corpuscular Hemoglobin 30.2 pg (25-34) Mean Corpuscular Hemoglobin Concent 33.2 g/dl (32-36) Platelet Count 106 K/uL (130-400) Mean Platelet Volume 12.5 fL (7.4-10.4) Neutrophils (%) (Auto) 67.4 % Lymphocytes (%) (Auto) 21.6 % Monocytes (%) (Auto) 7.1 % Eosinophils (%) (Auto) 3.4 % Basophils (%) (Auto) 0.5 % Neutrophils # (Auto) 2.74 K/uL (1.4-6.5) Lymphocytes # (Auto) 0.88 K/uL (1.2-3.4) Monocytes # (Auto) 0.29 K/uL (0.11-0.59) Eosinophils # (Auto) 0.14 K/uL (0-0.5) Basophils # (Auto) 0.02 K/uL (0-0.2) RDW Standard Deviation 49.3 fL (36.4-46.3) RDW Coefficient of Variation 14.7 % (11.5-14.5) Immature Granulocyte % (Auto) 0.0 % Immature Granulocyte # (Auto) 0.00 K/uL (0.00-0.02) Platelet Estimate DECREASED Echinocytes 1+ Anion Gap 5.0 mmol/L (3-11) Est Creatinine Clear Calc Drug Dose 44.5 ml/min Estimated GFR () 38.6 Estimated GFR (Non- 33.3 BUN/Creatinine Ratio 26.1 (10-20) Calcium Level 8.2 mg/dl (8.5-10.1) Folate 7.51 ng/mL (>5.38) Test 01/04/18 07:40 Bedside Glucose 196 mg/dl (70-99) Allergies Coded Allergies: Codeine (Verified Adverse Reaction, Mild, "trips me out", 01/01/18) CONFUSION Promethazine (Verified Adverse Reaction, Unknown, UNCONTROLLED MUSCLE MOVEMENTS, 01/01/18) Medications Current Inpatient Medications Medications (Trade) Dose Ordered Sig/Major Route Start Time Stop Time Status Last Admin Dose Admin Sodium Chloride 1,000 ml @ 75 mls/hr [id number] IV 01/01/18 14:02 01/31/18 14:01 01/04/18 08:20 75 MLS/HR Acetaminophen (Tylenol Tab) 650 mg Q4H PRN PO 01/01/18 14:15 01/31/18 14:14 Insulin Aspart (novoLOG ASPART) SLIDING SCALE If C... ACHS SC 01/01/18 16:00 01/31/18 15:59 01/04/18 08:28 4 UNITS Glucose (Glucose 40% Gel) 15-30 GRAMS 15 GRAMS... UD PRN PO 01/01/18 14:15 01/31/18 14:14 Glucose (Glucose Chew Tab) 4-8 Tablets 4 Tabl... UD PRN PO 01/01/18 14:15 01/31/18 14:14 Dextrose (Dextrose 50% 50ML Syringe) 25-50ML 25ML FOR ... UD PRN IV 01/01/18 14:15 01/31/18 14:14 01/01/18 15:07 25 ML Glucagon (Glucagon Inj) 1 mg UD PRN SQ 01/01/18 14:15 01/31/18 14:14 Carbohydrates (Carbohydrates For Hypoglycemia) 15-30 GRAMS 15 grams if BSG 54-69... UD PRN PO 01/01/18 14:15 01/31/18 14:14 Allopurinol (Zyloprim Tab) 300 mg QAM PO 01/02/18 09:00 02/01/18 08:59 01/04/18 08:20 300 MG Aspirin (Ecotrin Tab) 81 mg DAILY PO 01/02/18 09:00 02/01/18 08:59 01/04/18 08:20 81 MG Atorvastatin Calcium (Lipitor Tab) 80 mg QPM PO 01/01/18 21:00 01/31/18 20:59 01/03/18 20:59 80 MG Budesonide/ Formoterol Fumarate (Symbicort 80/ 4.5 Inh) 2 puffs BID INH 01/01/18 21:00 01/31/18 20:59 01/04/18 08:20 2 PUFFS Cholecalciferol (Vitamin D Tab) 1,000 inter.unit QAM PO 01/02/18 09:00 02/01/18 08:59 01/04/18 08:21 1,000 INTER.UNIT Clonazepam (Klonopin Tab) 0.5 mg DAILY PRN PO 01/01/18 15:00 01/31/18 14:59 01/01/18 23:33 0.5 MG Clopidogrel Bisulfate (plAVix TAB) 75 mg DAILY PO 01/02/18 09:00 02/01/18 08:59 01/04/18 08:21 75 MG Cyclobenzaprine HCl (Flexeril Tab) 10 mg BID PRN PO 01/01/18 15:00 01/31/18 14:59 01/04/18 08:20 10 MG Albuterol/ Ipratropium (Duoneb) 3 ml QID PRN INH 01/01/18 15:00 01/31/18 14:59 Loratadine (Claritin Tab) 10 mg DAILY PO 01/02/18 09:00 02/01/18 08:59 01/04/18 08:21 10 MG Metoprolol Tartrate (Lopressor Tab) 75 mg BID PO 01/01/18 21:00 01/31/18 20:59 01/04/18 08:21 75 MG Nitroglycerin (Nitrostat Tab) 0.4 mg UD PRN SL 01/01/18 16:30 01/31/18 16:29 Pantoprazole Sodium (Protonix Tab) 40 mg DAILY PO 01/02/18 09:00 02/01/18 08:59 01/04/18 08:21 40 MG Paroxetine HCl (pAXil CONTROLLED REL TAB) 25 mg HS PO 01/01/18 21:00 01/31/18 20:59 01/03/18 21:00 25 MG Trazodone HCl (Desyrel Tab) 150 mg HS PO 01/01/18 21:00 01/31/18 20:59 01/03/18 21:02 150 MG Cyanocobalamin (Vitamin B-12 Tab) 2,500 mcg DAILY PO 01/02/18 09:00 02/01/18 08:59 01/04/18 08:20 2,500 MCG Buspirone HCl (Buspar Tab) 20 mg BID PO 01/01/18 21:00 01/31/18 20:59 01/04/18 08:21 20 MG Heparin Sodium (Porcine) (Heparin Sq 5000 Unit/0.5ml) 5,000 unit Q12H SQ 01/01/18 21:00 01/31/18 18:14 01/04/18 08:29 5,000 UNIT Cholestyramine Resin (Questran Powder Light) 4 gm BID@10,22 PO 01/03/18 10:00 02/02/18 09:59 01/04/18 09:48 4 GM Saccharomyces Boulardii (Florastor Cap) 250 mg DAILY PO 01/03/18 09:00 02/02/18 08:59 01/04/18 08:20 250 MG Gabapentin (Neurontin Cap) 200 mg BID PO 01/03/18 09:00 01/31/18 20:59 01/04/18 08:20 200 MG Nifedipine (Procardia Xl Tab) 30 mg QAM PO 01/04/18 09:00 02/03/18 08:59 01/04/18 10:12 30 MG Impression (1) CANDACE (acute kidney injury) (2) Chronic kidney disease stage 3 (3) Diarrhea (4) Dehydration (5) Hyperkalemia (6) Generalized weakness Recommendations ACUTE KIDNEY INJURY: -- Urine sediment is benign. Renal US shows 9 cm kidneys w/ cortical atrophy but no obstruction. Clinically suspect CANDACE related to intravascular volume contraction -- Kidney function is nearing baseline. Electrolyte balance is acceptable. Continue gentle hydration. Will heplock IV in am -- Monitor serial PRP HYPERKALEMIA: -- Resolved. Continue low potassium diet ID: -- Urinalysis was not c/w infection. There is no pyuria. Urine culture w/ G+ and G- bacteria due to collection for ileal conduit -- Stool studies of C. Difficile & Shiga toxin are negative
[2018-01-04 11:15] VITALS: BP 161/78; PULSE 62; TEMP 36.6; O2SAT 94
[2018-01-04 14:56] VITALS: BP 162/84; PULSE 64; TEMP 36.2; O2SAT 95
[2018-01-04] MEDS ORDERED: NURSING DECISION MEDICATION ORDER PRN (16:45)
[2018-01-04] MEDS ORDERED: SODIUM CHLORIDE 0.65% NA SOLN 45 ML (OCEAN) PRN (17:00)
[2018-01-04] MEDS ORDERED: NURSING VERBAL MED ORDER ONE (17:45)
[2018-01-04 20:00] VITALS: BP 152/72; PULSE 63; TEMP 36.6; O2SAT 95
--- NOTE | 2018-01-04 20:53 | Progress Note ---
Subjective Date of Service: Jan 04, 2018. Subjective Pt evaluation today including: conversation w/ patient, conversation w/ family (, daughter - at bedside), physical exam, chart review, lab review, review of inpatient medication list Pain: none reported PO Intake: eating 100% meals Voiding: lee catheter in place (urostomy) pt "feels good" with no complaints today family pleased with his progress and report his mental status is near baseline they confirm he has had memory loss for 6-12 months or more they do want him to return to [facility] if he needs rehab no stool since yesterday no abd pain tele stable overnight Problem List Medical Problems: (1) Acute bronchitis Status: Acute (2) Acute renal failure Status: Acute (3) Chronic obstructive pulmonary disease Status: Acute (4) COPD exacerbation Status: Acute (5) Dehydration Status: Acute (6) Diarrhea Status: Acute (7) Fever Status: Acute (8) Generalized weakness Status: Acute (9) Hyperkalemia Status: Acute (10) Hypocalcemia Status: Acute (11) Hypomagnesemia Status: Acute (12) Hypoxia Status: Acute (13) Influenza A Status: Acute (14) Knee effusion, left Status: Acute (15) Malaise Status: Acute (16) Neuropathic pain Status: Acute (17) Renal insufficiency Status: Acute (18) Sinusitis Status: Acute (19) SOB (shortness of breath) Status: Acute (20) Stroke-like symptom Status: Acute (21) Vomiting Status: Acute Review of Systems Constitutional: No fever, No chills ENT: + nasal symptoms (congestion) Respiratory: No cough, No shortness of breath, No dyspnea on exertion Cardiac: No chest pain Abdomen: No pain, No nausea, No vomiting, No diarrhea Objective Vital Signs Date Time Temp Pulse Resp B/P (MAP) Pulse Ox O2 Delivery O2 Flow Rate FiO2 01/04/18 20:00 36.6 63 20 152/72 (98) 95 Room Air 01/04/18 16:00 Room Air 01/04/18 14:56 36.2 64 20 162/84 (110) 95 01/04/18 11:15 36.6 62 20 161/78 (105) 94 Room Air 01/04/18 08:00 96 Room Air CPAP 01/04/18 07:28 36.7 61 20 171/90 (117) 96 01/04/18 04:00 37.1 61 20 134/86 (102) 95 CPAP 01/04/18 00:00 CPAP 01/03/18 23:24 36.6 62 20 149/81 (103) 94 CPAP Physical Exam General Appearance: no apparent distress, + obese ENT: pharynx normal, + nasal congestion Neck: no JVD Respiratory/Chest: lungs clear, no respiratory distress, no accessory muscle use Cardiovascular: regular rate, rhythm, no gallop, no murmur Abdomen: normal bowel sounds, non tender, soft, no organomegaly Extremities: no pedal edema Neurologic/Psychiatric: alert, oriented x 3 Laboratory Results Last 24 Hours Test 01/04/18 05:17 01/04/18 07:40 01/04/18 11:30 01/04/18 16:17 White Blood Count 4.07 K/uL Red Blood Count 4.04 M/uL Hemoglobin 12.2 g/dL Hematocrit 36.8 % Mean Corpuscular Volume 91.1 fL Mean Corpuscular Hemoglobin 30.2 pg Mean Corpuscular Hemoglobin Concent 33.2 g/dl Platelet Count 106 K/uL Mean Platelet Volume 12.5 fL Neutrophils (%) (Auto) 67.4 % Lymphocytes (%) (Auto) 21.6 % Monocytes (%) (Auto) 7.1 % Eosinophils (%) (Auto) 3.4 % Basophils (%) (Auto) 0.5 % Neutrophils # (Auto) 2.74 K/uL Lymphocytes # (Auto) 0.88 K/uL Monocytes # (Auto) 0.29 K/uL Eosinophils # (Auto) 0.14 K/uL Basophils # (Auto) 0.02 K/uL RDW Standard Deviation 49.3 fL RDW Coefficient of Variation 14.7 % Immature Granulocyte % (Auto) 0.0 % Immature Granulocyte # (Auto) 0.00 K/uL Platelet Estimate DECREASED Echinocytes 1+ Sodium Level 142 mmol/L Potassium Level 4.7 mmol/L Chloride Level 115 mmol/L Carbon Dioxide Level 22 mmol/L Anion Gap 5.0 mmol/L Blood Urea Nitrogen 52 mg/dl Creatinine 1.99 mg/dl Est Creatinine Clear Calc Drug Dose 44.5 ml/min Estimated GFR () 38.6 Estimated GFR (Non- 33.3 BUN/Creatinine Ratio 26.1 Random Glucose 105 mg/dl Calcium Level 8.2 mg/dl Folate 7.51 ng/mL Bedside Glucose 196 mg/dl 149 mg/dl 111 mg/dl Assessment and Plan 67-year-old male with a history of COPD, paroxysmal atrial fibrillation not on anticoagulation due to history of bleeding, chronic diastolic CHF, DM 2, permanent pacemaker, CAD status post stents, CKD stage III, TIA/CVA, HTN, dyslipidemia, bladder cancer status post cystectomy and urostomy, prostate cancer status post prostatectomy, peripheral neuropathy: 1. acute kidney injury - nearly resolved. Can likely d/c fluids tonight. Suspect pre-renal etiology as cause of admission CANDACE. According to records his baseline creatinine is about 1.5-1.6. BMP in am. 2. CKD stage 3 - baseline creatinine about 1.5-1.6. Daily BMP. 3. hyperkalemia - 2nd to #1 - resolved. 4. chronic diarrhea - c. diff negative. Stool cx pending but thus far negative. Due to exposure to lakes, etc in [place] send O & P and giardia. Cont questran powder. Overall improved/resolving. 5. metabolic encephalopathy - resolving/nearly back to baseline. Suspect this was due to significant prerenal azotemia. Cannot rule out infectious causes. Cannot rule out new [employer] insult (ie - stroke) but exam not consistent with such and CT head at admission w/ old stroke only. 6. dizziness - suspect due to orthostasis as he was orthostatic at presentation - likely from significant volume depletion. Resolved. B12 wnl. Nothing on CT head to account for dizziness. Echo in [place] in November 2017 without valvular heart disease. Gabapentin could have contributed. 7. chronic diastolic CHF - compensated. Stop IVF. 8. CAD - no evidence of ischemic event. 9. urostomy status - due to prior h/o bladder cancer --- urostomy functioning well. Although urine cx is grew enterobacter and enterococcus he is not symptomatic ( no fever, eating well, etc) for UTI. Would not Rx w/ abx at this time. He will always have bacteria in his urostomy bag. 10. HTN - uncontrolled. continue beta bertin; add nifedipine xr 30mg daily. 11. pacemaker status - noted. Unfortunately his device is NOT MRI-compatible. 12. paroxysmal atrial fibrillation - no longer on anticoagulation due to recurrent issues with hematuria. This is unfortunate due to known strokes. 13. Depression/anxiety - continue fluoxetine, trazodone. 14. Peripheral neuropathy - gabapentin BID. Neuropathy could be contributing to falls and dizziness/disequilibrium. 15. pancytopenia / thrombocytopenia - b12, tsh, folic acid levels all wnl. etiology?? if counts continue to drop consider tick-borne disease testing as he was camping in the last month or so. 16. T2DM - holding oral agents; controlled w/ novolog meals/bedtime. 17. DVT proph - heparin SC. 18. cerebrovascular disease - prior stroke(s) - cont asa, plavix for secondary prophylaxis. not candidate for anticoagulation and daughter extensively updated at bedside again today PT, OT evals pending but he very well may need rehab once again family [facility] Continued [facility] stay due to: ambulation difficulties, multiple IV medications needed Discharge planning: uncertain
[2018-01-04] MEDS: TRAZODONE HCL 100 MG TAB PO SCH (21:06)
[2018-01-04] MEDS: ATORVASTATIN 40 MG TAB PO SCH (21:06)
[2018-01-04] MEDS: PAROXETINE 12.5 MG TABCR PO SCH (21:07)
[2018-01-05] VITALS (9 sets, daily range): BP systolic 121–175; BP diastolic 55–90; PULSE 60–74; TEMP 36.4–37.2; O2SAT 92–96
[2018-01-05 06:25] LABS: HEMATOCRIT 37.5 % (42-52); HEMOGLOBIN 12.1 g/dL (14.0-18.0); MEAN CELL VOLUME 91.9 fL (80-100); MEAN CORPUSCULAR HEMOGLOBIN 29.7 pg (25-34); MEAN CORPUSCULAR HGB CONC 32.3 g/dl (32-36); MEAN PLATELET VOLUME 12.3 fL (7.4-10.4); PLATELET COUNT 103 K/uL (130-400); RED CELL DISTRIBUTION WIDTH CV 14.6 % (11.5-14.5); RED CELL DISTRIBUTION WIDTH SD 48.7 fL (36.4-46.3); WHITE BLOOD COUNT 5.18 K/uL (4.8-10.8)
[2018-01-05 06:45] LABS: BASO % 0.4 %; BASO ABS # 0.02 K/uL (0-0.2); EOS % 2.9 %; EOS ABS # 0.15 K/uL (0-0.5); IG# 0.01 K/uL (0.00-0.02); LYMPH % 18.3 %; LYMPH ABS # 0.95 K/uL (1.2-3.4); MONO % 8.1 %; MONO ABS # 0.42 K/uL (0.11-0.59); NEUT % 70.1 %; NEUT ABS # 3.63 K/uL (1.4-6.5)
[2018-01-05 06:47] LABS: CALCIUM 8.3 mg/dl (8.5-10.1); CREATININE 1.86 mg/dl (0.60-1.40); POTASSIUM 4.6 mmol/L (3.5-5.1)
[2018-01-05] MEDS: BUDESONIDE/FORMOTEROL FUMARATE 80/4.5 60 PUFFS/INHALER INH SCH ×2 (07:52→21:26)
[2018-01-05] MEDS: PANTOprazole SOD 40 MG TAB PO SCH (07:53)
[2018-01-05] MEDS: METOPROLOL TARTRATE 25 MG TAB PO SCH ×2 (07:53→21:29)
[2018-01-05] MEDS: ALLOPURINOL 300 MG TAB PO SCH (07:53)
[2018-01-05] MEDS: CHOLECALCIFEROL 1000 INTER.UNIT TAB PO SCH (07:55)
[2018-01-05] MEDS: CLOPIDOGREL BISULFATE 75 MG TAB PO SCH (07:55)
[2018-01-05] MEDS: ASPIRIN 81 MG ECTAB PO SCH (07:55)
[2018-01-05] MEDS: LORATADINE 10 MG TAB PO SCH (07:55)
[2018-01-05] MEDS: CYANOCOBALAMIN 2,500 MCG SUBL TAB PO SCH (07:55)
[2018-01-05] MEDS: SACCHAROMYCES BOUL (FLORASTOR) 250 MG CAP PO SCH (07:56)
[2018-01-05] MEDS: GABAPENTIN 100 MG CAP PO SCH ×2 (07:56→21:30)
[2018-01-05] MEDS: NIFEdipine 30 MG CR TAB PO SCH (08:52)
[2018-01-05] MEDS: HEPARIN SOD 5000 UNIT/0.5 ML CARP SQ SCH ×2 (08:58→21:35)
[2018-01-05] MEDS: INSULIN ASPART 100 UNITS/ML 3 ML PEN SC SCH ×4 (08:58→21:00)
[2018-01-05] MEDS: CHOLESTYRAMINE LIGHT 4 GM PKT PO SCH ×2 (09:25→21:22)
--- NOTE | 2018-01-05 10:12 | Nephrology Progress Note ---
Nephrology Progress Note Date of Service Jan 05, 2018. Chief Complaint CANDACE / CKD Subjective Mr. Pierce was seen & examined in his hospital room this morning. He reports that his diarrhea has resolved and his strength has improved. He is anxious to participate in physical therapy Review of Systems Constitutional: No fever Cardiovascular: No chest pain Respiratory: No dyspnea at rest Abdomen: No pain, No vomiting Extremities: No leg edema A complete review of systems was performed. Pertinent positives are noted above. All other systems are negative. Vital Signs Last 8 Hrs Date Time Temp Pulse Resp B/P (MAP) Pulse Ox O2 Delivery O2 Flow Rate FiO2 01/05/18 07:51 66 122/72 (89) 01/05/18 07:25 36.8 60 18 164/77 (106) 94 Room Air 01/05/18 04:42 37.2 62 18 171/84 (113) 92 CPAP Last Recorded Weight Weight (Kilograms): 124.500 Physical Exam General Appearance: no apparent distress Head: normocephalic, atraumatic Eyes: PERRL, EOMI Neck: no adenopathy Respiratory/Chest: lungs clear, no respiratory distress Cardiovascular: regular rate, rhythm Abdomen/GI: normal bowel sounds, non tender, soft Extremities/Musculoskelatal: no calf tenderness, no pedal edema Neurologic/Psych: alert, oriented x 3 Family History FH: coronary artery disease Negative for CKD / ESRD Social History Smoking Status: Former smoker Alcohol Use: none Drug Use: none Marital Status: Housing Status: lives with family (Lives with and his daughter and son-in- law's house) Occupation: retired (Formerly in the in [place] and exposed to agent orange) . Resides in [place], [place]. Retired. 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 No recent alcohol use. Laboratory Results Past 24 Hours 01/05/18 05:51 Red Blood Count 4.08, Mean Corpuscular Volume 91.9, Mean Corpuscular Hemoglobin 29.7, Mean Corpuscular Hemoglobin Concent 32.3, Mean Platelet Volume 12.3, Neutrophils (%) (Auto) 70.1, Lymphocytes (%) (Auto) 18.3, Monocytes (%) (Auto) 8.1, Eosinophils (%) (Auto) 2.9, Basophils (%) (Auto) 0.4, Neutrophils # (Auto) 3.63, Lymphocytes # (Auto) 0.95, Monocytes # (Auto) 0.42, Eosinophils # (Auto) 0.15, Basophils # (Auto) 0.02 01/05/18 05:51 Test 01/04/18 11:30 01/04/18 16:17 01/04/18 20:56 01/05/18 05:51 Bedside Glucose 149 mg/dl (70-99) 111 mg/dl (70-99) 135 mg/dl (70-99) White Blood Count 5.18 K/uL (4.8-10.8) Red Blood Count 4.08 M/uL (4.7-6.1) Hemoglobin 12.1 g/dL (14.0-18.0) Hematocrit 37.5 % (42-52) Mean Corpuscular Volume 91.9 fL (80-100) Mean Corpuscular Hemoglobin 29.7 pg (25-34) Mean Corpuscular Hemoglobin Concent 32.3 g/dl (32-36) Platelet Count 103 K/uL (130-400) Mean Platelet Volume 12.3 fL (7.4-10.4) Neutrophils (%) (Auto) 70.1 % Lymphocytes (%) (Auto) 18.3 % Monocytes (%) (Auto) 8.1 % Eosinophils (%) (Auto) 2.9 % Basophils (%) (Auto) 0.4 % Neutrophils # (Auto) 3.63 K/uL (1.4-6.5) Lymphocytes # (Auto) 0.95 K/uL (1.2-3.4) Monocytes # (Auto) 0.42 K/uL (0.11-0.59) Eosinophils # (Auto) 0.15 K/uL (0-0.5) Basophils # (Auto) 0.02 K/uL (0-0.2) RDW Standard Deviation 48.7 fL (36.4-46.3) RDW Coefficient of Variation 14.6 % (11.5-14.5) Immature Granulocyte % (Auto) 0.2 % Immature Granulocyte # (Auto) 0.01 K/uL (0.00-0.02) Anion Gap 5.0 mmol/L (3-11) Est Creatinine Clear Calc Drug Dose 47.8 ml/min Estimated GFR () 41.8 Estimated GFR (Non- 36.1 BUN/Creatinine Ratio 19.7 (10-20) Calcium Level 8.3 mg/dl (8.5-10.1) Test 01/05/18 07:44 01/05/18 07:47 Bedside Glucose 113 mg/dl (70-99) Allergies Coded Allergies: Codeine (Verified Adverse Reaction, Mild, "trips me out", 01/01/18) CONFUSION Promethazine (Verified Adverse Reaction, Unknown, UNCONTROLLED MUSCLE MOVEMENTS, 01/01/18) Medications Current Inpatient Medications Medications (Trade) Dose Ordered Sig/Major Route Start Time Stop Time Status Last Admin Dose Admin Acetaminophen (Tylenol Tab) 650 mg Q4H PRN PO 01/01/18 14:15 01/31/18 14:14 01/04/18 15:47 650 MG Insulin Aspart (novoLOG ASPART) SLIDING SCALE If C... ACHS SC 01/01/18 16:00 01/31/18 15:59 01/05/18 08:58 1 UNITS Glucose (Glucose 40% Gel) 15-30 GRAMS 15 GRAMS... UD PRN PO 01/01/18 14:15 01/31/18 14:14 Glucose (Glucose Chew Tab) 4-8 Tablets 4 Tabl... UD PRN PO 01/01/18 14:15 01/31/18 14:14 Dextrose (Dextrose 50% 50ML Syringe) 25-50ML 25ML FOR ... UD PRN IV 01/01/18 14:15 01/31/18 14:14 01/01/18 15:07 25 ML Glucagon (Glucagon Inj) 1 mg UD PRN SQ 01/01/18 14:15 01/31/18 14:14 Carbohydrates (Carbohydrates For Hypoglycemia) 15-30 GRAMS 15 grams if BSG 54-69... UD PRN PO 01/01/18 14:15 01/31/18 14:14 Allopurinol (Zyloprim Tab) 300 mg QAM PO 01/02/18 09:00 02/01/18 08:59 01/05/18 07:53 300 MG Aspirin (Ecotrin Tab) 81 mg DAILY PO 01/02/18 09:00 02/01/18 08:59 01/05/18 07:55 81 MG Atorvastatin Calcium (Lipitor Tab) 80 mg QPM PO 01/01/18 21:00 01/31/18 20:59 01/04/18 21:06 80 MG Budesonide/ Formoterol Fumarate (Symbicort 80/ 4.5 Inh) 2 puffs BID INH 01/01/18 21:00 01/31/18 20:59 01/05/18 07:52 2 PUFFS Cholecalciferol (Vitamin D Tab) 1,000 inter.unit QAM PO 01/02/18 09:00 02/01/18 08:59 01/05/18 07:55 1,000 INTER.UNIT Clonazepam (Klonopin Tab) 0.5 mg DAILY PRN PO 01/01/18 15:00 01/31/18 14:59 01/01/18 23:33 0.5 MG Clopidogrel Bisulfate (plAVix TAB) 75 mg DAILY PO 01/02/18 09:00 02/01/18 08:59 01/05/18 07:55 75 MG Cyclobenzaprine HCl (Flexeril Tab) 10 mg BID PRN PO 01/01/18 15:00 01/31/18 14:59 01/04/18 08:20 10 MG Albuterol/ Ipratropium (Duoneb) 3 ml QID PRN INH 01/01/18 15:00 01/31/18 14:59 Loratadine (Claritin Tab) 10 mg DAILY PO 01/02/18 09:00 02/01/18 08:59 01/05/18 07:55 10 MG Metoprolol Tartrate (Lopressor Tab) 75 mg BID PO 01/01/18 21:00 01/31/18 20:59 01/05/18 07:53 75 MG Nitroglycerin (Nitrostat Tab) 0.4 mg UD PRN SL 01/01/18 16:30 01/31/18 16:29 Pantoprazole Sodium (Protonix Tab) 40 mg DAILY PO 01/02/18 09:00 02/01/18 08:59 01/05/18 07:53 40 MG Paroxetine HCl (pAXil CONTROLLED REL TAB) 25 mg HS PO 01/01/18 21:00 01/31/18 20:59 01/04/18 21:07 25 MG Trazodone HCl (Desyrel Tab) 150 mg HS PO 01/01/18 21:00 01/31/18 20:59 01/04/18 21:06 150 MG Cyanocobalamin (Vitamin B-12 Tab) 2,500 mcg DAILY PO 01/02/18 09:00 02/01/18 08:59 01/05/18 07:55 2,500 MCG Buspirone HCl (Buspar Tab) 20 mg BID PO 01/01/18 21:00 01/31/18 20:59 01/05/18 07:53 20 MG Heparin Sodium (Porcine) (Heparin Sq 5000 Unit/0.5ml) 5,000 unit Q12H SQ 01/01/18 21:00 01/31/18 18:14 01/05/18 08:58 5,000 UNIT Cholestyramine Resin (Questran Powder Light) 4 gm BID@10, PO 01/03/18 10:00 02/02/18 09:59 01/05/18 09:25 4 GM Saccharomyces Boulardii (Florastor Cap) 250 mg DAILY PO 01/03/18 09:00 02/02/18 08:59 01/05/18 07:56 250 MG Gabapentin (Neurontin Cap) 200 mg BID PO 01/03/18 09:00 01/31/18 20:59 01/05/18 07:56 200 MG Sodium Chloride (Pine Nasal [place]) 1 sprays PRN PRN NA 01/04/18 17:00 02/03/18 16:59 Nifedipine (Procardia Xl Tab) 60 mg QAM PO 01/05/18 09:00 02/03/18 08:59 Impression (1) CANDACE (acute kidney injury) (2) Chronic kidney disease stage 3 (3) Diarrhea (4) Dehydration (5) Hyperkalemia (6) Generalized weakness Recommendations ACUTE KIDNEY INJURY: -- Resolved. Creatinine is back to baseline value of 1.8. Volume status and electrolyte balance are acceptable. Patient is nonoliguric -- Recommend encouraging oral hydration and monitor serial PRP HYPERKALEMIA: -- Resolved. Continue low potassium diet ID: -- Urinalysis was not c/w infection. There is no pyuria. Urine culture w/ G+ and G- bacteria due to collection for ileal conduit -- Stool studies of C. Difficile & Shiga toxin are negative No further Nephrology evaluation indicated at this time. Will sign off. Please call if further assistance is needed.
--- NOTE | 2018-01-05 18:57 | Progress Note ---
Subjective Date of Service: Jan 05, 2018. Subjective Pt evaluation today including: conversation w/ patient, conversation w/ family ( at bedside), physical exam, chart review, lab review Pain: none PO Intake: eating 100% meals Voiding: lee catheter in place (urostomy) tele stable - paced rhythm only feels good no complaints pleased with how he is doing they would like to go to [facility] for rehab he feels weak in his legs Problem List Medical Problems: (1) Acute bronchitis Status: Acute (2) Acute renal failure Status: Acute (3) Chronic obstructive pulmonary disease Status: Acute (4) COPD exacerbation Status: Acute (5) Dehydration Status: Acute (6) Diarrhea Status: Acute (7) Fever Status: Acute (8) Generalized weakness Status: Acute (9) Hyperkalemia Status: Acute (10) Hypocalcemia Status: Acute (11) Hypomagnesemia Status: Acute (12) Hypoxia Status: Acute (13) Influenza A Status: Acute (14) Knee effusion, left Status: Acute (15) Malaise Status: Acute (16) Neuropathic pain Status: Acute (17) Renal insufficiency Status: Acute (18) Sinusitis Status: Acute (19) SOB (shortness of breath) Status: Acute (20) Stroke-like symptom Status: Acute (21) Vomiting Status: Acute Review of Systems Constitutional: No fever, No chills, No fatigue Respiratory: No cough, No shortness of breath Cardiac: No chest pain Abdomen: No pain, No nausea, No vomiting, No diarrhea Musculoskeletal: No joint pain Objective Vital Signs Date Time Temp Pulse Resp B/P (MAP) Pulse Ox O2 Delivery O2 Flow Rate FiO2 01/05/18 16:15 95 Room Air 01/05/18 15:27 36.5 60 20 154/80 (104) 95 Room Air 01/05/18 11:31 36.4 64 18 158/80 (106) 96 Room Air 01/05/18 08:00 Room Air 01/05/18 07:51 66 122/72 (89) 01/05/18 07:25 36.8 60 18 164/77 (106) 94 Room Air 01/05/18 04:42 37.2 62 18 171/84 (113) 92 CPAP 01/05/18 00:17 37.1 62 16 175/90 (118) 93 CPAP 01/05/18 00:00 CPAP 01/04/18 20:00 36.6 63 20 152/72 (98) 95 Room Air Physical Exam General Appearance: no apparent distress, + obese ENT: pharynx normal Neck: no JVD Respiratory/Chest: lungs clear, no respiratory distress, no accessory muscle use Cardiovascular: regular rate, rhythm, no gallop, no murmur Abdomen: normal bowel sounds, non tender, soft, no organomegaly, + pertinent finding (urostomy in place; bag with clear yellow urine) Extremities: no pedal edema Neurologic/Psychiatric: no motor/sensory deficits (strenth 5/5 all muscle groups of LEs), alert, oriented x 3 Skin: no rash Laboratory Results Last 24 Hours Test 01/04/18 20:56 01/05/18 05:51 01/05/18 07:44 01/05/18 07:47 Bedside Glucose 135 mg/dl 113 mg/dl White Blood Count 5.18 K/uL Red Blood Count 4.08 M/uL Hemoglobin 12.1 g/dL Hematocrit 37.5 % Mean Corpuscular Volume 91.9 fL Mean Corpuscular Hemoglobin 29.7 pg Mean Corpuscular Hemoglobin Concent 32.3 g/dl Platelet Count 103 K/uL Mean Platelet Volume 12.3 fL Neutrophils (%) (Auto) 70.1 % Lymphocytes (%) (Auto) 18.3 % Monocytes (%) (Auto) 8.1 % Eosinophils (%) (Auto) 2.9 % Basophils (%) (Auto) 0.4 % Neutrophils # (Auto) 3.63 K/uL Lymphocytes # (Auto) 0.95 K/uL Monocytes # (Auto) 0.42 K/uL Eosinophils # (Auto) 0.15 K/uL Basophils # (Auto) 0.02 K/uL RDW Standard Deviation 48.7 fL RDW Coefficient of Variation 14.6 % Immature Granulocyte % (Auto) 0.2 % Immature Granulocyte # (Auto) 0.01 K/uL Sodium Level 142 mmol/L Potassium Level 4.6 mmol/L Chloride Level 114 mmol/L Carbon Dioxide Level 23 mmol/L Anion Gap 5.0 mmol/L Blood Urea Nitrogen 37 mg/dl Creatinine 1.86 mg/dl Est Creatinine Clear Calc Drug Dose 47.8 ml/min Estimated GFR () 41.8 Estimated GFR (Non- 36.1 BUN/Creatinine Ratio 19.7 Random Glucose 106 mg/dl Calcium Level 8.3 mg/dl Test 01/05/18 11:43 01/05/18 16:06 Bedside Glucose 145 mg/dl 110 mg/dl Assessment and Plan 67-year-old male with a history of COPD, paroxysmal atrial fibrillation not on anticoagulation due to history of bleeding, chronic diastolic CHF, DM 2, permanent pacemaker, CAD status post stents, CKD stage III, TIA/CVA, HTN, dyslipidemia, bladder cancer status post cystectomy and urostomy, prostate cancer status post prostatectomy, peripheral neuropathy: 1. acute kidney injury - nearly resolved. Cr 1.8 today; baseline about 1.5/ 1.6. BMP in am. Suspect pre-renal etiology as cause of admission CANDACE. 2. CKD stage 3 - baseline creatinine about 1.5-1.6. Daily BMP. 3. hyperkalemia - 2nd to #1 - resolved. 4. chronic diarrhea - resolved. c. diff negative. Stool cx thus far negative. Due to exposure to lakes, etc in [place] sent O & P and giardia. Cont questran powder. 5. metabolic encephalopathy - resolved/nearly back to baseline. Suspect this was due to significant prerenal azotemia. Cannot rule out infectious causes. Cannot rule out new [employer] insult (ie - stroke) but exam not consistent with such and CT head at admission w/ old stroke only. cannot obtain MRI due to pacemaker status. Check thiamine level in am to be complete. B12, TSH otherwise wnl. 6. dizziness - suspect due to orthostasis as he was orthostatic at presentation - likely from significant volume depletion. Resolved. B12 wnl. Nothing on CT head to account for dizziness. Echo in [place] in November 2017 without valvular heart disease. Gabapentin could have contributed. 7. chronic diastolic CHF - compensated. 8. CAD - no evidence of ischemic event. 9. urostomy status - due to prior h/o bladder cancer. Urostomy functioning well. Although urine cx grew enterobacter and enterococcus he is not symptomatic (no fever, eating well, etc) for UTI. Would not Rx w/ abx at this time. 10. HTN - uncontrolled. continue beta bertin; increase nifedipine xr to 60mg daily. 11. pacemaker status - noted. Unfortunately his device is NOT MRI-compatible. 12. paroxysmal atrial fibrillation - no longer on anticoagulation due to recurrent issues with hematuria. This is unfortunate due to known strokes. 13. Depression/anxiety - continue fluoxetine, trazodone. 14. Peripheral neuropathy - gabapentin BID. Neuropathy could be contributing to falls and dizziness/disequilibrium. 15. pancytopenia / thrombocytopenia - b12, tsh, folic acid levels all wnl. etiology?? Modestly improved today. CBC in am for stability. 16. T2DM - holding oral agents; controlled w/ novolog meals/bedtime. 17. DVT proph - heparin SC. 18. cerebrovascular disease - prior stroke(s) - cont asa, plavix for secondary prophylaxis. not candidate for anticoagulation he would be well-served by establishing care with neurology due to mild cognitive impairment/chronic memory issues per family, stroke, etc. updated at bedside again today awaiting [facility] - hopefully tomorrow Continued [facility] stay due to: ambulation difficulties, multiple IV medications needed Discharge planning: rehab hospital
[2018-01-05] MEDS: PAROXETINE 12.5 MG TABCR PO SCH (21:27)
[2018-01-05] MEDS: ATORVASTATIN 40 MG TAB PO SCH (21:28)
[2018-01-05] MEDS: TRAZODONE HCL 100 MG TAB PO SCH (21:29)
[2018-01-06 00:12] VITALS: BP 162/71; PULSE 61; TEMP 36.8; O2SAT 92
[2018-01-06] MEDS: TRIMETHOPRIM/POLYMYXIN B OP SCH ×4 (06:20→16:52)
[2018-01-06 07:14] LABS: HEMATOCRIT 35.8 % (42-52); MEAN CELL VOLUME 91.1 fL (80-100); MEAN CORPUSCULAR HEMOGLOBIN 30.5 pg (25-34); MEAN CORPUSCULAR HGB CONC 33.5 g/dl (32-36); RED CELL DISTRIBUTION WIDTH CV 14.4 % (11.5-14.5); RED CELL DISTRIBUTION WIDTH SD 47.9 fL (36.4-46.3); WHITE BLOOD COUNT 4.72 K/uL (4.8-10.8)
[2018-01-06 07:45] LABS: CALCIUM 8.4 mg/dl (8.5-10.1); CREATININE 1.83 mg/dl (0.60-1.40); POTASSIUM 4.4 mmol/L (3.5-5.1)
[2018-01-06 07:58] VITALS: BP 163/77; PULSE 60; TEMP 36.7; O2SAT 94
[2018-01-06 08:03] LABS: BASO % 0.2 %; BASO ABS # 0.01 K/uL (0-0.2); EOS % 2.5 %; EOS ABS # 0.12 K/uL (0-0.5); IG# 0.01 K/uL (0.00-0.02); LYMPH % 19.9 %; LYMPH ABS # 0.94 K/uL (1.2-3.4); MEAN PLATELET VOLUME 11.9 fL (7.4-10.4); MONO % 9.3 %; MONO ABS # 0.44 K/uL (0.11-0.59); NEUT % 67.9 %; PLATELET COUNT 99 K/uL (130-400)
[2018-01-06] MEDS: LORATADINE 10 MG TAB PO SCH (08:50)
[2018-01-06] MEDS: METOPROLOL TARTRATE 25 MG TAB PO SCH (08:50)
[2018-01-06] MEDS: SACCHAROMYCES BOUL (FLORASTOR) 250 MG CAP PO SCH (08:50)
[2018-01-06] MEDS: ASPIRIN 81 MG ECTAB PO SCH (08:50)
[2018-01-06] MEDS: BUDESONIDE/FORMOTEROL FUMARATE 80/4.5 60 PUFFS/INHALER INH SCH (08:50)
[2018-01-06] MEDS: CYANOCOBALAMIN 2,500 MCG SUBL TAB PO SCH (08:51)
[2018-01-06] MEDS: PANTOprazole SOD 40 MG TAB PO SCH (08:51)
[2018-01-06] MEDS: CHOLECALCIFEROL 1000 INTER.UNIT TAB PO SCH (08:51)
[2018-01-06] MEDS: NIFEdipine 30 MG CR TAB PO SCH (08:51)
[2018-01-06] MEDS: CLOPIDOGREL BISULFATE 75 MG TAB PO SCH (08:51)
[2018-01-06] MEDS: ALLOPURINOL 300 MG TAB PO SCH (08:51)
[2018-01-06] MEDS: GABAPENTIN 100 MG CAP PO SCH (08:51)
[2018-01-06] MEDS: INSULIN ASPART 100 UNITS/ML 3 ML PEN SC SCH ×2 (08:53→12:54)
[2018-01-06] MEDS: HEPARIN SOD 5000 UNIT/0.5 ML CARP SQ SCH (08:53)
[2018-01-06] MEDS: CHOLESTYRAMINE LIGHT 4 GM PKT PO SCH (10:49)
[2018-01-06 12:15] VITALS: BP 175/80; PULSE 60; TEMP 36.8; O2SAT 92
[2018-01-06 15:14] VITALS: BP 158/60; PULSE 63; TEMP 37; O2SAT 91
[2018-01-06] MEDS ORDERED: GABA-113 PO (16:08)
[2018-01-06] MEDS ORDERED: POLYSOL21 OPL (16:08)
[2018-01-06] MEDS ORDERED: NIFE60TA66 PO (16:08)
[2018-01-06] MEDS ORDERED: COLE1TAB5 PO (16:15)
--- NOTE | 2018-01-06 16:25 | Discharge Instructions ---
Discharge Instructions Date of Service Jan 06, 2018. Admission Reason for Admission: significant dehydration, acute kidney failure Discharge Discharge Diagnosis / Problem: dehydration, confusion, acute kidney injury - all resolved Discharge Goals Goal(s): Learn about illness, Diagnostic testing, Therapeutic intervention Activity Recommendations Activity Limitations: resume your previous activity (as tolerated; please use your walker at all times) . Instructions / Follow-Up Instructions / Follow-Up You were admitted to [facility] due to diarrhea, dehydration, acute kidney injury, high potassium, and mild confusion. Your dehydration, high potassium level, acute kidney injury, and confusion all resolved. Your creatinine on day of discharge (blood test for your kidney function) was 1.8. The creatinine was 3.7 when you arrived at [facility]. You had no evidence of pneumonia or urinary tract infection. We sent several studies on your stool including c. diff testing, stool culture, giardia testing, etc. Thus far all infectious causes of your diarrhea have been ruled out. There are several stool studies still pending; we will let you know if anything is positive. In light of your weight loss this summer and the recent diarrhea I would advise that you obtain a GI referral in [place] for testing including EGD (upper endoscopy) and colonoscopy. I would do this EDDIE. At this time the following are recommended - 1. high blood pressure - * STOP your lisinopril * in its place please take nifedipine xr 60mg once a day; new prescription sent to [facility] 2. diarrhea - * please take colestipol 1gm by mouth once a day * this medication helps firm up your diarrhea; new prescription sent to [facility] 3. I have sent several additional blood tests in light of your weight loss including cortisol level, PSA prostate test, sed rate, etc. I will let you know if any of these tests are abnormal and need attention. 4. Diabetes - since you have lost weight recently you do not need as much medication for your diabetes. You previously were taking 15mg of glipizide daily. PLEASE LOWER THIS TO 5MG ONCE A DAY IN THE AM WITH YOUR BREAKFAST. THE DOSE MAY NEED ADDITIONAL ADJUSTMENT IF YOUR SUGARS ARE RUNNING LOW. 5. Due to your heart and kidney issues please CHECK YOUR WEIGHT EVERY MORNING on a standing scale. If you gain more than 2-3 pounds in 1-2 days this could be a sign you are taking on fluid weight. If you see weight gains please let the ID clinic know right away. Follow-up - see the ID clinic within 1 week - see separate section. Use your walker at all times at home please. Return to [facility] if - * you have fever over 100.5 degrees * you have worsening shortness of breath, chest pain * you have severe diarrhea * any concern of dehydration * any other concerns Current Hospital Diet Patient's current hospital diet: Diabetes Type 2 Diet, Low Potassium Diet (2g K) Discharge Diet Recommended Diet: AHA Diet (Heart Healthy), Diabetes Type 2 Diet Fluid Restriction: 1800 ml (7 cups) Procedures Procedures Performed: CAT scan of the brain showing an OLD stroke but no new stroke or bleeding. Kidney ultrasound. Pending Studies Studies pending at discharge: yes List of pending studies: Cortisol level, sed rate, "SPEP", PSA prostate test, thiamine level. Laboratory Results Hemoglobin A1c Test 01/02/18 05:41 Range/Units Estimated Average Glucose 192 mg/dl Hemoglobin A1c 8.3 H 4.5-5.6 % Medical Emergencies . Who to Call and When: Medical Emergencies: If at any time you feel your situation is an emergency, please call 911 immediately. . Non-Emergent Contact Non-Emergency issues call your: Primary Care Provider Call Non-Emergent contact if: temperature is above 100.5, you have any medication questions . . "Provider Documentation" section prepared by Tray Aparicio. .
[2018-01-06 16:28] VITALS: BP 158/60; PULSE 63; TEMP 37; O2SAT 91
[2018-01-07] MEDS ORDERED: PARO1TAB9 PO (21:16)
--- NOTE | 2018-01-07 22:01 | Discharge Summary ---
Discharge Summary Date of Service Jan 06, 2018. Discharge Summary Admission Date: Jan 01, 2018 at 14:15 Discharge Date: Jan 06, 2018 Discharge Disposition: Home with services Principal Diagnosis: acute renal failure - resolved Problems/Secondary Diagnoses: Other hospital problems addressed: 1. hyperkalemia - resolved 2. diarrhea - improved, infectious causes thus far ruled out 3. recent weight loss - etiology uncertain - follow-up advised 4. pancytopenia - etiology uncertain - follow-up advised 5. metabolic encephalopathy - resolved 6. left eye conjunctivitis Chronic medical conditions: 1. Chronic diastolic heart failure 2, PAF not on anticoagulation due to previous issues with hematuria 3, HTN 4. CAD with history of stents placed in 2011 5. History of pericardial effusion - 2011 - s/p pericardial window 6. CKD stage III 7. COPD 8. T2DM 9. Hyperlipidemia 10. Peripheral neuropathy 11. History of bladder cancer status post cystectomy and urostomy formation 12. History of prostate cancer status post prostatectomy 13. h/o nephrolithiasis 14. pacemaker status 15. cerebrovascular disease - old left parietal stroke seen on CT head 16. depression/anxiety 17. question of underlying mild cognitive impairment/early dementia - outpatient neurology referral recommended Immunizations: Have You Had Influenza Vaccine: N/A Influenza Vaccine Date: Apr 02, 2010 History of Tetanus Vaccine?: Yes Tetanus Immunization Date: Jun 02, 2001 History of Pneumococcal: Unknown Pneumococcal Date: Mar 29, 2012 History of Hepatitis B Vaccine: Unknown Procedures: 1. head CT - IMPRESSION: 1. No acute intracranial findings. 2. Old left parietal lobe infarct. 2. renal u/s - no evidence of obstruction/hydronephrosis. The bladder is surgically absent. 3. cxr - no infiltrates. Consultations: nephrology - Vitor Carter MD PT, OT Medication Reconciliation New Medications: Colestipol Hcl (Colestipol Hcl) 1 Gm Tab 1 GM PO DAILY for 30 Days, #30 TABS 1 Refill Nifedipine (Nifedipine Er) 60 Mg Tab 1 TAB PO DAILY for 30 Days, #30 TAB 3 Refills for high blood pressure Polymyxin B-Trimethoprim (Trimethoprim Sulfate/Poly 11774-8.1 Unit/ml-%) 1 Trini Trini 1 DROPS OPL QID for 7 Days, #1 BTL 0 Refills Changed Medications: Gabapentin (Neurontin) 300 Mg Cap 300 MG PO BID, #60 CAP 0 Refills (Changed from: TID; Refills: ) please note lower dose frequency Paroxetine Cont Rel (Paxil Cr) 25 Mg Tabcr 50 MG PO HS, #60 TABS 2 Refills (Changed from: 25 MG; Refills: ) Continued Medications: Acetaminophen (Tylenol) 500 Mg Tab 1000 MG PO UD Allopurinol (Zyloprim) 300 Mg Tab 300 MG PO QAM Aspirin Enteric Coated (Ecotrin Or Generic) 81 Mg Tab 81 MG PO DAILY Atorvastatin (Lipitor) 80 Mg Tab 80 MG PO QPM, TAB Budesonide/Formoterol Fumarate (Symbicort 80/4.5 Inhaler) 120 Puffs/ Aero 1 PUFF INH BID Buspirone Hcl (Buspirone Hcl) 10 Mg Tab 20 MG PO BID Cholecalciferol (Vitamin D 1000 Unit) 1,000 Unit Cap 1000 INTER.UNIT PO QAM Clonazepam (Klonopin) 1 Mg Tab 0.5 MG PO DAILY PRN for Anxiety Clopidogrel (Plavix) 75 Mg Tab 75 MG PO DAILY Cyanocobalamin (B-12) 2,500 Mcg Tab 2500 MCG PO DAILY Cyclobenzaprine Hcl (Flexeril) 10 Mg Tab 10 MG PO BID PRN for Muscle Spasms Furosemide (Lasix) 40 Mg Tab 40 MG PO BID Glipizide (Glucotrol) 5 Mg Tab 5 MG PO DAILY Ipratropium-Albuterol (Duoneb) 3 Ml Nebu 1 TREATMENT INH QID PRN for SOB/Wheezing Lactobacillus (Acidophilus) 1 Cap Cap 350 MG PO DAILY Loratadine (Claritin) 10 Mg Tab 10 MG PO DAILY Melatonin (Melatonin) 10 Mg Cap 10 MG PO HS Metoprolol Tartrate (Lopressor) (Lopressor) 50 Mg Tab 75 MG PO BID Multiple Vitamins W/ Minerals (Preservision Areds 2) 1 Cap Cap 1 CAP PO DAILY Nitroglycerin (Nitrostat) 0.3 Mg Tab 0.3 MG UT UD PRN for Chest Pain PLACE ONE TABLET UNDER THE TONGUE EVERY 5 MINUTES FOR UP TO 3 DOSES OVER 15 MINUTES IF NEEDED FOR CHEST PAIN. Pantoprazole Sodium (Protonix) 40 Mg Tab 40 MG PO DAILY Trazodone Hcl (Trazodone) 100 Mg Tab 150 MG PO HS Discontinued Medications: Glipizide (Glucotrol) 10 Mg Tab 10 MG PO QAM Lisinopril (Zestril) 10 Mg Tab 10 MG PO QAM Lisinopril (Zestril) 20 Mg Tab 20 MG PO QAM Discharge Exam Physical Exam: General Appearance: no apparent distress Eyes: + pertinent finding (minimal drainage, left eye; minimal conjunctival injection, left eye) ENT: pharynx normal Neck: no JVD Respiratory/Chest: lungs clear, no respiratory distress, no accessory muscle use Cardiovascular: regular rate, rhythm, no gallop, no murmur, normal peripheral pulses Abdomen / GI: normal bowel sounds, non tender, soft, no organomegaly, + pertinent finding (urostomy, right side of abdomen, with clear yellow urine) Extremities: no pedal edema Neurologic/Psychiatric: no motor/sensory deficits (strength 5/5 x 4 extremities; no weakness ), alert, + pertinent finding (minimal amount of baseline confusion) Skin: no rash Hospital Course HISTORY OF PRESENT ILLNESS: This patient is a 67-year-old male with a history of COPD, paroxysmal atrial fibrillation not on anticoagulation due to history of bleeding, chronic diastolic CHF, DM 2, permanent pacemaker, CAD status post stents, CKD stage III , TIA/CVA, HTN, dyslipidemia, bladder cancer status post cystectomy and urostomy , prostate cancer status post prostatectomy, peripheral neuropathy, nephrolithiasis, here with persistent dizziness, weakness with almost daily falls for several weeks. He has also had multiple episodes of diarrhea daily for several weeks. He was seen for altered mental status and confusion and found to have a UTI in early November and was treated with antibiotics. His took him back to the hospital in [place] several days later when he persisted with his confusion. A repeat CT of the head at that time did confirm a new stroke. He was also having left-sided weakness at that time. He was discharged from there to [facility] [place] [facility] where he was then discharged to home on December 11. Ever since discharge, his mental status has been okay except for some occasional confusion, but he has been falling almost daily. He has no focal deficits, but will be walking around and then his knees will give out. He had a fall yesterday with some bruises on the back and buttocks but no head trauma. In the ER, he was found to have a creatinine of 3.71, with a potassium elevated at 6.7. He had no changes on his ECG. He was given IV calcium gluconate, insulin and D50, and a nebulizer treatment. He was also given a liter of IV fluids. Other labs were fairly unremarkable. The patient is say that he has not had any labs drawn since he was in the hospital 1 month ago for his stroke. He will be admitted for acute kidney injury possibly secondary to dehydration from diarrhea. HOSPITAL COURSE: 1. acute kidney injury (CANDACE) - presenting creatinine was 3.7. With fluids and supportive care his creatinine improved to 1.8. His creatinine remained at 1.8 for 48 hours prior to discharge. Based on records his previous baseline creatinine was about 1.6. The patient's CANDACE was thought to be due to prerenal etiology (volume depletion from diarrhea, etc). 2. chronic diarrhea - infectious work-up including c. diff toxin and stool culture were both negative. O & P and giardia were sent and were pending at time of discharge. He was started on bile acid sequestrant and was given a prescription for colestipol at discharge. The patient and his reported that he had lost a significant amount of weight starting earlier this summer. I recommended he obtain an outpatient GI referral for consideration of colonoscopy (and possibly EGD) to exclude underlying pathology that could be causing these symptoms. 3. metabolic encephalopathy - this resolved with treatment of his significant acute kidney injury. His BUN was 100 which likely caused some or all of his confusion. I could rule out a new PULP COOKER insult (ie - stroke) but exam was not consistent with such and CT head at admission only showed an old stroke. MRI brain could not be obtained due to pacemaker status. B12 and TSH were normal. Thiamine level was sent prior to discharge. The patient's family reported baseline memory troubles starting 6-12 months and thus he might have mild cognitive impairment/mild dementia. I recommended follow-up with [facility] for additional testing. 4. dizziness - suspect this was due to orthostasis as he was considerably orthostatic at presentation. His dizziness resolved with IV hydration. There was nothing on CT head to account for his dizziness. Echocardiogram in [place] in November 2017 did not show valvular heart disease. Gabapentin could have contributed to his dizziness but this was less likely. 5. urostomy status - a urine culture grew enterobacter and enterococcus. However, he was not symptomatic for UTI (no fever, eating well, no leukocytosis , etc). His confusion resolved without treating for any UTI. Suspect this was asymptomatic bacteruria in the setting of his urostomy. 6. HTN - in light of his acute kidney injury his lisinopril was STOPPED and in its place nifedipine xr was substituted. This was titrated to 60mg once daily while here. BPs were acceptable at time of discharge. 7. weight loss - the patient began losing weight earlier this year. This coincided with the development of his diarrhea. Sed rate was normal, PSA was undetectable, stool studies were negative, TSH was normal. Due to #8 below an SPEP was sent. Tick-borne disease (ehrlichia, anaplasmosis) titers were sent as well. I advised referral to GI as an outpatient for consideration of EGD/colonoscopy. 8. pancytopenia / thrombocytopenia - b12, tsh, folic acid levels were all normal. Etiology was uncertain. SPEP and anaplasmosis/ehrlichia titers were sent prior to discharge. He will need repeat CBC with diff at time of hospital follow-up. If he continues with pancytopenia would recommend referral to hematology/ oncology to rule out a neoplastic process. 9. T2DM - due to the patient's weight loss I recommended he LOWER his glipizide dose. He needed very little, if any, diabetic medication/insulin while hospitalized. 10. cerebrovascular disease - patient with prior stroke(s) - he will continue aspirin and plavix for secondary stroke prophylaxis. He is not a candidate for anticoagulation due to prior bleeding. I recommended that he establish care with neurology due to mild cognitive impairment/chronic memory issues per family, prior strokes, etc. The patient and his family had requested referral back to [facility] [place] [facility] for acute inpatient rehab. He was scheduled to transfer there on the day of discharge. Several hours prior to discharge the patient changed his mind and wished to be discharged home with home health services. We encouraged him to go to rehab but he refused. He was counseled that he was at high risk of readmission to the hospital. The [facility] [place] [facility] claim service representative did give the patient the option of being admitted to [facility] [place] [facility] from home if he did poorly at his house. 01/06/18 06:40 Red Blood Count 3.93, Mean Corpuscular Volume 91.1, Mean Corpuscular Hemoglobin 30.5, Mean Corpuscular Hemoglobin Concent 33.5, Mean Platelet Volume 11.9, Neutrophils (%) (Auto) 67.9, Lymphocytes (%) (Auto) 19.9, Monocytes (%) (Auto) 9.3, Eosinophils (%) (Auto) 2.5, Basophils (%) (Auto) 0.2, Neutrophils # (Auto) 3.20, Lymphocytes # (Auto) 0.94, Monocytes # (Auto) 0.44, Eosinophils # (Auto) 0.12, Basophils # (Auto) 0.01 01/06/18 06:40 Test 01/01/18 11:40 01/01/18 14:00 01/02/18 05:41 01/03/18 05:59 Red Blood Cell Morphology Unremarkable Prothrombin Time 10.3 SECONDS (9.0-12.0) Prothromb Time International Ratio 1.0 (0.9-1.1) Activated Partial Thromboplast Time 27.7 SECONDS (21.0-31.0) Partial Thromboplastin Ratio 1.1 Total Bilirubin 0.6 mg/dl (0.2-1) Aspartate Amino Transf (AST/SGOT) 30 U/L (15-37) Alanine Aminotransferase (ALT/SGPT) 30 U/L (12-78) Alkaline Phosphatase 113 U/L (45-117) Troponin I < 0.015 ng/ml (0-0.045) Total Protein 8.2 gm/dl (6.4-8.2) Albumin 4.4 gm/dl (3.4-5.0) Globulin 3.8 gm/dl (2.5-4.0) Albumin/Globulin Ratio 1.2 (0.9-2) Thyroid Stimulating Hormone (TSH) 2.080 uIu/ml (0.300-4.500) Urine Color YELLOW Urine Appearance CLEAR (CLEAR) Urine pH 5.0 (4.5-7.5) Urine Specific [place] 1.016 (1.000-1.030) Urine Protein NEG (NEG) Urine Glucose (UA) NEG (NEG) Urine Ketones NEG (NEG) Urine Occult Blood NEG (NEG) Urine Nitrite POS (NEG) Urine Bilirubin NEG (NEG) Urine Urobilinogen NEG (NEG) Urine Leukocyte Esterase NEG (NEG) Urine WBC (Auto) 1-5 /hpf (0-5) Urine RBC (Auto) 0-4 /hpf (0-4) Urine Hyaline Casts (Auto) 1-5 /lpf (0-5) Urine Epithelial Cells (Auto) 5-10 /lpf (0-5) Urine Bacteria (Auto) 1+ (NEG) Estimated Average Glucose 192 mg/dl Hemoglobin A1c 8.3 % (4.5-5.6) Phosphorus Level 3.4 mg/dl (2.5-4.9) Magnesium Level 1.7 mg/dl (1.8-2.4) Vitamin B12 Level 800 pg/mL (211-911) Test 01/04/18 05:17 01/05/18 07:47 01/06/18 06:40 01/06/18 16:22 Echinocytes 1+ Folate 7.51 ng/mL (>5.38) White Blood Count 4.72 K/uL (4.8-10.8) Red Blood Count 3.93 M/uL (4.7-6.1) Hemoglobin 12.0 g/dL (14.0-18.0) Hematocrit 35.8 % (42-52) Mean Corpuscular Volume 91.1 fL (80-100) Mean Corpuscular Hemoglobin 30.5 pg (25-34) Mean Corpuscular Hemoglobin Concent 33.5 g/dl (32-36) Platelet Count 99 K/uL (130-400) Mean Platelet Volume 11.9 fL (7.4-10.4) Neutrophils (%) (Auto) 67.9 % Lymphocytes (%) (Auto) 19.9 % Monocytes (%) (Auto) 9.3 % Eosinophils (%) (Auto) 2.5 % Basophils (%) (Auto) 0.2 % Neutrophils # (Auto) 3.20 K/uL (1.4-6.5) Lymphocytes # (Auto) 0.94 K/uL (1.2-3.4) Monocytes # (Auto) 0.44 K/uL (0.11-0.59) Eosinophils # (Auto) 0.12 K/uL (0-0.5) Basophils # (Auto) 0.01 K/uL (0-0.2) RDW Standard Deviation 47.9 fL (36.4-46.3) RDW Coefficient of Variation 14.4 % (11.5-14.5) Immature Granulocyte % (Auto) 0.2 % Immature Granulocyte # (Auto) 0.01 K/uL (0.00-0.02) Platelet Estimate DECREASED Anion Gap 7.0 mmol/L (3-11) Est Creatinine Clear Calc Drug Dose 49.0 ml/min Estimated GFR () 42.7 Estimated GFR (Non- 36.8 BUN/Creatinine Ratio 15.4 (10-20) Calcium Level 8.4 mg/dl (8.5-10.1) Erythrocyte Sedimentation Rate 13 mm/hr (0-14) Prostate Specific Antigen < 0.010 ng/ml (0.000-4.000) Random Cortisol 9.73 mcg/dl Test 01/06/18 16:32 Bedside Glucose 119 mg/dl (70-99) Date/Time Source Procedure Growth Status 01/02/18 01:00 Stool Shiga Toxin Test - Final No E. Coli shiga toxin 1 or shiga tox... Complete 01/02/18 01:00 Stool Stool Culture - Final NO SALMONELLA ISOLATED,... Complete 01/01/18 14:00 Urine,Catheterized Urine Culture - Final Enterobacter Amnigenus 1 Enterococcus Faecalis Complete Total Time Spent: Greater than 30 minutes This includes examination of the patient, discharge planning, medication reconciliation, and communication with other providers. Discharge Instructions Please refer to the electronic Patient Visit Report (Discharge Instructions) for additional information. Follow-Up Dr. Gottlieb on FridayJanuary 14 at 8:30 am CBC and BMP are recommended at time of hospital follow-up appointment Additional Copies To Ashwin Gottlieb M.D.; [facility]
== END 2018-01-06 17:11 | disposition home health service (06) | DRG 682 ==
LOC: EDBD 11:15 → C.EDB 11:17 → C.MED 14:15 → ENRESERV 14:28
PROVIDERS: ADMIT Family Medicine; ATTEND Internal Medicine
DX: N17.9 Acute kidney failure, unspecified (principal); G93.41 Metabolic encephalopathy; I13.0 Hypertensive heart and chronic kidney disease with heart failure and stage 1 through stage 4 chronic kidney disease, or unspecified chronic kidney disease; I50.32 Chronic diastolic (congestive) heart failure; E11.22 Type 2 diabetes mellitus with diabetic chronic kidney disease; N18.3 Chronic kidney disease, stage 3 (moderate); I48.0 Paroxysmal atrial fibrillation; E78.5 Hyperlipidemia, unspecified; E11.40 Type 2 diabetes mellitus with diabetic neuropathy, unspecified; J44.9 Chronic obstructive pulmonary disease, unspecified; E87.5 Hyperkalemia; R19.7 Diarrhea, unspecified; T36.95XA Adverse effect of unspecified systemic antibiotic, initial encounter; R29.6 Repeated falls; E86.0 Dehydration; F32.9 Major depressive disorder, single episode, unspecified; F41.9 Anxiety disorder, unspecified; G47.33 Obstructive sleep apnea (adult) (pediatric); R42 Dizziness and giddiness; Z79.02 Long term (current) use of antithrombotics/antiplatelets; Z79.82 Long term (current) use of aspirin; Z79.84 Long term (current) use of oral hypoglycemic drugs; Z79.899 Other long term (current) drug therapy; Z86.73 Personal history of transient ischemic attack (TIA), and cerebral infarction without residual deficits; Z87.891 Personal history of nicotine dependence; Z91.81 History of falling; Z93.6 Other artificial openings of urinary tract status; Z95.0 Presence of cardiac pacemaker; Z88.5 Allergy status to narcotic agent

== ENCOUNTER 2018-08-06 13:28 | Inpatient (IN) ==
[2018-08-06] MEDS ORDERED: SODIUM CHLORIDE 0.9% 1000ML 500 ML IV ONE (14:23)
[2018-08-06] MEDS ORDERED: ALBUT/IPRATROP 3MG/0.5MG NEB 3 ML VIAL NEB STA ×3 (14:23→17:07)
[2018-08-06] MEDS ORDERED: methylPREDNISolone 125 MG/2 ML VIAL IV STA (14:23)
[2018-08-06 15:01] LABS: Basophils # (auto) 0.02 K/uL (0-0.2); Basophils % (auto) 0.2 %; Eosinophils # (auto) 0.11 K/uL (0-0.5); Eosinophils % (auto) 1.2 %; Hematocrit (blood only) 39.9 % (42-52); Hemoglobin 13.4 g/dL (14.0-18.0); Immature Granulocytes # (auto) 0.01 K/uL (0.00-0.02); Immature Granulocytes % (auto) 0.1 %; Lymphocytes # (auto) 1.01 K/uL (1.2-3.4); Lymphocytes % (auto) 11.3 %; Mean Corpuscular Hgb Conc 33.6 g/dL (32-36); Mean Corpuscular Volume 90.7 fL (80-100); Mean Platelet Volume 11.5 fL (7.4-10.4); Monocytes # (auto) 0.82 K/uL (0.11-0.59); Monocytes % (auto) 9.2 %; Neutrophils # (auto) 6.94 K/uL (1.4-6.5); Platelet Count 151 K/uL (130-400); RDW Standard Deviation 49.2 fL (36.4-46.3); White Blood Count 8.91 K/uL (4.8-10.8)
[2018-08-06 15:05] LABS: Base Excess VBG 6.1 mEq/L; Oxygen Saturation VBG 78.3 %; pH VBG 7.41 (7.36-7.41)
[2018-08-06 15:13] LABS: INR 1.1 (0.9-1.1); Partial Thromboplastin Ratio 0.9; Partial Thromboplastin Time 25.2 Seconds (21.0-31.0); Prothrombin Time 10.8 Seconds (9.0-12.0)
[2018-08-06 15:33] LABS: Appearance Urine Cloudy (Clear); Bacteria Urine Automated 4+ (Negative); Bilirubin Urine Negative (Negative); Blood Urine Negative (Negative); Color Urine Dark Yellow; Glucose Urine UA Negative (Negative); Ketones Urine Negative (Negative); Leukocyte Esterase Urine 1+ (Negative); Nitrite Urine Positive (Negative); Protein Urine 2+ (Negative); RBC Urine Automated >30 /hpf (0-4); Specific Gravity Urine 1.015 (1.000-1.030); Urobilinogen Urine Negative (Negative); WBC Urine Automated >30 /hpf (0-5); pH Urine 5.5 (4.5-7.5)
--- NOTE | 2018-08-06 15:38 | CT Scan Report ---
CT head/brain wo con CLINICAL HISTORY: 68 years-old Male presenting with ams, history of stroke, vision issues. TECHNIQUE: Multidetector CT imaging of the head was performed without the use of intravenous contrast . IV contrast: None. One or more dose lowering techniques were used consistent with the principles of ALARA (as low as reasonably achievable), including automatic exposure control, mA or kV adjustment t o individual patient size, and/or use of iterative reconstruction. COMPARISON: 01/01/2018. CT DOSE (mGy.cm): The estimated cumulative dose is 537.48 mGy.cm. FINDINGS: Captain Waiter topogram: The patient is edentulous. Proportional ventricular and sulcal prominence, likely age-related parenchymal volume loss. No hemorr polo. Periventricular and subcortical white matter hypoattenuation, nonspecific but likely indicative of chronic small vessel ischemic change. Old left parietal lobe cortical infarct. No acute territori al infarct. No mass effect or midline shift. No extra-axial fluid collection. Paranasal sinuses and m astoid air cells clear. Calvarium intact. IMPRESSION: 1. No significant change compared to the prior study. No acute intracranial abnormality. Electronically signed by: Avila Graham M.D. 08/06/2018 3:37 PM
--- NOTE | 2018-08-06 15:47 | XRay Report ---
XR chest 2V routine HISTORY: 68 years-old Male cough sob acute cough with shortness of breath COMPARISON: Chest radiograph 05/15/2018 TECHNIQUE: Portable AP and lateral views of the chest FINDINGS: Cardiac silhouette is mildly enlarged, unchanged. Stable positioning of the dual lead left subclavian pacer. Mild pulmonary vascular congestion without pneumothorax, pleural effusion, lobar airspace con solidation or overt pulmonary edema. Cholecystectomy clips are noted. Degenerative changes are seen a bout the shoulders and spine. IMPRESSION: Cardiomegaly with mild pulmonary vascular congestion. The above report was generated using voice recognition software. It may contain grammatical, syntax o r spelling errors. Electronically signed by: Theo Noel M.D. 08/06/2018 3:46 PM
[2018-08-06 15:49] LABS: Influenza A virus by PCR Neg for Influ A (Neg); Influenza B virus by PCR Neg for Influ B (Neg)
[2018-08-06 16:05] LABS: Alanine Aminotransferase 23 U/L (12-78); Albumin Level 3.3 gm/dl (3.4-5.0); Aspartate Aminotransferase 19 U/L (15-37); BUN Creatinine Ratio 15.7 (10-20); Bilirubin Direct 0.2 mg/dl (0-0.2); Blood Urea Nitrogen 26 mg/dl (7-18); Calcium 8.1 mg/dl (8.5-10.1); Carbon Dioxide 31 mmol/L (21-32); Chloride 103 mmol/L (98-107); Creatinine Clr Calc Pharmacy 55.5 ml/min; Est GFR (Non-African American) 41.4; Glucose 121 mg/dl (70-99); Magnesium 1.8 mg/dl (1.8-2.4); Potassium 3.3 mmol/L (3.5-5.1); Sodium 141 mmol/L (136-145)
[2018-08-06 16:10] LABS: Alkaline Phosphatase 142 U/L (45-117); Bilirubin,Total 0.7 mg/dl (0.2-1); NT Pro B Type Natriuretic Pept 5005 pg/ml (0-900); Troponin I < 0.015 ng/ml (0-0.045)
[2018-08-06] MEDS ORDERED: FUROSEMIDE 40 MG/4 ML VIAL IV STA (17:07)
--- NOTE | 2018-08-06 18:32 | History & Physical Report ---
Date of Service August 06, 2018 Assessment & Plan (1) Shortness of breath: 68 y/o M Hx CAD, diastolic CHF, COPD, DM II, HTN, HLD, urostomy due to bladder CA and recurrent UTIs, CKD III, MJ, gout, history of CVA. Last admitted 01/2018 with CHF exacerbation and CANDACE. Presents with progressive SOB x 2-3 days and possible 5 pund weight gain as well. Denies a productive cough or a fever,. His states that she had given him additional Lasix over the past 2 days to no avail. He is requiring 3L 02 on arrival to the ER. CXR is consistent with volume overload. Labs are unremarkable excepting a + UA which may be chronic. 1) Dyspnea/hypoxia - likely mutifactorial but mainly owing to CHFexacerbation at present - CHF - provided with additional diuresis and NTG paste, daily weight, I/O - COPD - duonebs, Solumedrol, 02 protocol 2) CAD - no evidence of ACS - cont ASA, Plavix, B bertin, statin. 3) DM II - placed on SS 4) Hx CVA - Cont ASA, Plavix, statin 5) HTN, HLD - Metoprolol, Hydralazine, Atorvastatin 6) Anxiety/depression - cont Klonopin, Buspar 7) Gout - cont Allopurinol 8) CKD - renal function is at baseline 9) Ua is + which appears to be chronic - we will wait for culture results to provide Abx Full code - Heparin prophylaxis Total time for this admit including review of labs, meds, imaging, records - discussion with pt, and ER attending - 45 min Present on Admission?: Yes History of Present Illness Chief Complaint: Shortness of breath Primary Care Provider: Ashwin Gottlieb 68 y/o M Hx CAD, diastolic CHF, COPD, DM II, HTN, HLD, urostomy due to bladder CA and recurrent UTIs, CKD III, MJ, gout, history of CVA. Last admitted 01/2018 with CHF exacerbation and CANDACE. Presents with progressive SOB x 2-3 days and possible 5 pund weight gain as well. Denies a productive cough or a fever,. His states that she had given him additional Lasix over the past 2 days to no avail. He is requiring 3L 02 on arrival to the ER. CXR is consistent with volume overload. Labs are unremarkable excepting a + UA which may be chronic. PMH: 1) COPD - home 02 with exertion and PRN 2) PAF 3) Pacer 4) Chronic diastolic CHF 5) DM II 6) CAD - stent 2011 7) Depression/anxiety/PTSD 8) HTN 9) HLD 10) CKD III - baseline creat 1.8 11) MJ - CPAP 12) Macular degeneration 13) CVA - mild L residual wekaness 14) Gout 15) Bladder CA - urostomy - chronic UTIs Surgical: 1) Cholecystectomy 2) Bladder resection - urostomy 3) Prostatectomy 4) Lumbar laminectomy Social: Does not drink or smoke presently Family: Noncontributory Allergies Allergy/AdvReac Type Severity Reaction Status Date / Time codeine AdvReac Mild "trips me Verified 08/06/18 14:15 out" promethazine AdvReac Unknown UNCONTROLLED Verified 08/06/18 14:15 MUSCLE MOVEMENTS Home Medications Home Medications Medication Instructions Recorded Confirmed Type Symbicort 1 puff INHALATION BID 02/05/18 08/06/18 History allopurinol 300 mg PO QAM 02/05/18 08/06/18 History aspirin [Aspir-81] 81 mg PO QAM 02/05/18 08/06/18 History atorvastatin 80 mg PO QPM 02/05/18 08/06/18 History buspirone 20 mg PO BID 02/05/18 08/06/18 History clopidogrel [Plavix] 75 mg PO QAM 02/05/18 08/06/18 History furosemide 40 mg PO BID 02/05/18 08/06/18 History glipizide 5 mg PO QAM 02/05/18 08/06/18 History ipratropium-albuterol 3 ml INHALATION QID PRN 02/05/18 08/06/18 History loratadine [Claritin] 10 mg PO QAM 02/05/18 08/06/18 History melatonin 10 mg PO HS 02/05/18 08/06/18 History nitroglycerin 0.3 mg SUBLINGUAL DIRECTED PRN 02/05/18 08/06/18 History pantoprazole 40 mg PO QAM 02/05/18 08/06/18 History PreserVision AREDS-2 1 tab PO DAILY 02/16/18 08/06/18 History acetaminophen [Tylenol Extra 1,000 mg PO DIRECTED PRN 02/16/18 08/06/18 History Strength] cholecalciferol (vitamin D3) 1,000 unit PO DAILY 02/16/18 08/06/18 History [Vitamin D3] clonazepam [Klonopin] 0.5 mg PO DAILY PRN 02/16/18 08/06/18 History cyanocobalamin (vitamin B-12) 2,500 mcg PO DAILY 02/16/18 08/06/18 History [Vitamin B-12] paroxetine HCl [Paxil CR] 25 mg PO HS 02/16/18 08/06/18 History trazodone 150 mg PO HS 02/16/18 08/06/18 History metoprolol tartrate 100 mg PO BID #60 tab 02/19/18 08/06/18 Rx hydralazine 25 mg PO TID 05/15/18 08/06/18 History gabapentin 400 mg PO BID 08/06/18 08/06/18 History Past Med/Surg History Medical History Depression with anxiety stable-continue Paxil and trazodone Diabetes mellitus with hyperglycemia, without long-term current use of insulin increase insulin sliding scale and added Lantus 10 units daily -check [id number] Acute respiratory failure with hypoxia MJ on CPAP Cardiac pacemaker in situ Paroxysmal atrial fibrillation HTN (hypertension), benign Thiamine deficiency Acute exacerbation of chronic obstructive pulmonary disease (COPD) Congestive heart failure (Acute) Acute kidney injury Acute on chronic diastolic (congestive) heart failure Anxiety Atrial fibrillation Cancer BLADDER PROSTATE Chronic back pain Chronic kidney disease STAGE ? Chronic obstructive pulmonary disease Constipation Coronary arteriosclerosis Depression Diabetes mellitus, type 2 GERD (gastroesophageal reflux disease) Gout Gout continue allopurinol for prophylaxis Hiatal hernia History of CVA (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 Hyperlipidemia Hypertension Hypomagnesemia Macular degeneration Osteoarthritis Pacemaker 2011 IMPLANTED FOR A-FIB Peripheral edema Peripheral neuropathy Post traumatic stress disorder Sleep apnea CPAP Stroke CT SCAN NOVEMBER 2017 SHOWED EVIDENCE OF AN OLD STROKE ? EXACT DATE NOVEMBER 2017 SLURRED SPEECH/LEFT FOOT WEAKNESS CURRENTLY STILL HAS WEAKNESS IN LEFT SIDE/REHAB AFTER HOSPITALIZATION AWAITING TO HEAR BACK FOR GI OFFICE IF SURGEON OK WITH PT REMAINING ON BLOOD THINNER. Transient ischemic attack (TIA) Surgical History History of biopsy of bladder History of cardiac cath STENT PLACED 2011 History of cataract surgery RT/LEFT History of cholecystectomy History of heart artery stent History of laminectomy LUMBAR History of prostatectomy History of tooth extraction History of urostomy Pericardial disease PERICARDIAL WINDOW/MICROSCOPIC ([facility]) 2014 Presence of urostomy BLADDER REMOVED D/T CANCER STOMA REVISED Social History Preferred Language: Ukrainian Beliefs That Will Affect Care: None marital status: Current Living Situation: Spouse Current Living Situation Comment: With current occupational status: retired Feels Safe at Home: Yes Smoking Status: Former smoker Hx Alcohol Use: No Hx Substance Use: No Review of Systems Gen: Denies fevers, night sweats, rigors, fatigue, malaise, weight loss/gain ENT: Denies congestion, throat pain, hearing loss Eyes: Denies acute visual changes CV: Denies CP, palpitations Pulmonary: reports progressive dyspnea, pronounced with exertion and lying flat GI: Denies N/V, diarrhea, constipation Neuro: Denies acute or unilateral weakness, acute gait impairment, headache or acute visual changes Musculoskeletal: Denies joint pain, inflammation Endocrine: Denies polydipsia, polyuria Skin: Denies acute rashes or ulcers Physical Exam Vital Signs (Past 24 Hours): Last Vital Signs Temp 36.6 C 08/06/18 13:40 Pulse 60 08/06/18 17:07 Resp 24 08/06/18 13:40 BP 163/88 H 08/06/18 13:40 Pulse Ox 93 08/06/18 17:07 Physical Exam: General: Obese, eldelry male, AAO x 3, no distress ENT: No erythema or exudates, no thrush Eyes: LEIGH, EOMI Head and neck: Normocephalic, atraumatic, cannot assess JVD due to habitus Chest/heart: Nontender, S1,2, R, no murmurs, faint heart sounds Lungs: Poor BL air movement, prolonged expiratory phase. Reduced air at bases without clear crackles or wheezing. Abdomen: Nontender, distended, BS+ - there is a urostomy bag without induration - urine is translucent Neuro: AAO x 3, speech is clear, no unilateral weakness or loss of sensation, coordination intact Musculoskeletal: No joint inflammation, muscle tenderness, FROM Skin: No acute rashes or ulcers Extremities: No clubbing, +edema
[2018-08-06] MEDS ORDERED: NITROGLYCERIN SL 0.4 MG/TAB TAB SL PRN (19:46)
[2018-08-06] MEDS ORDERED: POLYETHYLENE (MIRALAX) 17 GM PACK PO PRN (19:46)
[2018-08-06] MEDS ORDERED: MoRPHine SULFATE 2 MG/ML CARP IV PRN (19:46)
[2018-08-06] MEDS ORDERED: ALUMINUM/MAGNESIUM SUSP 30 ML UDC PO PRN (19:46)
[2018-08-06] MEDS ORDERED: ONDANSETRON INJ 2 MG/ML 2 ML VIAL IV PRN (19:46)
[2018-08-06] MEDS ORDERED: MAGNESIUM HYDROXIDE SUSP 30 ML UDC PO PRN (19:46)
[2018-08-06] MEDS ORDERED: ACETAMINOPHEN 325 MG TAB PO PRN (19:46)
[2018-08-06] MEDS ORDERED: clonazePAM 0.5 MG TAB PO PRN (19:46)
[2018-08-06] MEDS ORDERED: NITROGLYCERIN 2% OINTMENT 30GM TUBE EXT ONE (20:00)
[2018-08-06] MEDS ORDERED: GLUCOSE 10 TABS/TUBE PO PRN (20:00)
[2018-08-06] MEDS ORDERED: DEXTROSE 50% 50 ML SYRINGE IV PRN (20:00)
[2018-08-06] MEDS ORDERED: GLUCAGON FOR INJ 1 MG VIAL IM PRN (20:00)
[2018-08-06] MEDS ORDERED: CARBOHYDRATES FOR HYPOGLYCEMIA PO PRN (20:00)
[2018-08-06] MEDS ORDERED: GLUCOSE 40% GEL 15 GM TUBE PO PRN (20:00)
[2018-08-06] MEDS: ALBUT/IPRATROP 3MG/0.5MG NEB 3 ML VIAL NEB SCH (20:07)
[2018-08-06] MEDS: METOPROLOL TARTRATE 100 MG TAB PO SCH (20:56)
[2018-08-06] MEDS: INSULIN ASPART 100 UNITS/ML 3 ML PEN SC SCH (20:57)
[2018-08-06] MEDS: HEPARIN SOD 5,000 UNIT/0.5 ML VIAL SQ SCH (20:57)
[2018-08-06] MEDS ORDERED: TRAZODONE HCL 100 MG TAB PO SCH (21:00)
[2018-08-06] MEDS ORDERED: PARoxetine HCl CONTROLLED REL 12.5 MG TABCR PO SCH (21:00)
[2018-08-06] MEDS ORDERED: GABAPENTIN 400 MG CAP PO SCH (21:00)
[2018-08-06] MEDS ORDERED: ATORVASTATIN 40 MG TAB PO SCH (21:00)
--- NOTE | 2018-08-06 21:08 | Emergency Department Note ---
Entered by Tyler Lopez acting as a scribe for History of Present Illness General Chief complaint: Referred by Doctor Stated complaint: WHEEZING,COUGH, POSSIBLE PNEUMONIA Time Seen by Provider: 08/06/18 14:05 Source: patient Mode of arrival: ambulatory History of Present Illness Provider complaint: Respiratory Issues Onset (ago): hour(s) 8 Location: chest Maximum Pain Intensity: 5 Current Pain Intensity: 5 Quality: + other (chest pain ) Associated symptoms: + chest pain; no nausea/vomiting Patient is a 68 year old male who presents himself to ER with complains of respiratory issues which started this morning. He was referred to the ER from the [place]. He states being confused more than usual and that he has been using his oxygen pump more. Patient also stated that he is having chest pain, and coughs with no blood. He denies being in ICU in the past for these same issues. Patient notes he does have medical history of COPD and diabetes. Patient also rates her pain at a 5 on the pain intensity scale. He denies nausea, vomiting and diarrhea. Home Medications Home Medications Medication Instructions Recorded Confirmed Type Symbicort 1 puff INHALATION BID 02/05/18 08/06/18 History allopurinol 300 mg PO QAM 02/05/18 08/06/18 History aspirin [Aspir-81] 81 mg PO QAM 02/05/18 08/06/18 History atorvastatin 80 mg PO QPM 02/05/18 08/06/18 History buspirone 20 mg PO BID 02/05/18 08/06/18 History clopidogrel [Plavix] 75 mg PO QAM 02/05/18 08/06/18 History furosemide 40 mg PO BID 02/05/18 08/06/18 History glipizide 5 mg PO QAM 02/05/18 08/06/18 History ipratropium-albuterol 3 ml INHALATION QID PRN 02/05/18 08/06/18 History loratadine [Claritin] 10 mg PO QAM 02/05/18 08/06/18 History melatonin 10 mg PO HS 02/05/18 08/06/18 History nitroglycerin 0.3 mg SUBLINGUAL DIRECTED PRN 02/05/18 08/06/18 History pantoprazole 40 mg PO QAM 02/05/18 08/06/18 History PreserVision AREDS-2 1 tab PO DAILY 02/16/18 08/06/18 History acetaminophen [Tylenol Extra 1,000 mg PO DIRECTED PRN 02/16/18 08/06/18 Hist ory Strength] cholecalciferol (vitamin D3) 1,000 unit PO DAILY 02/16/18 08/06/18 History [Vitamin D3] clonazepam [Klonopin] 0.5 mg PO DAILY PRN 02/16/18 08/06/18 History cyanocobalamin (vitamin B-12) 2,500 mcg PO DAILY 02/16/18 08/06/18 History [Vitamin B-12] paroxetine HCl [Paxil CR] 25 mg PO HS 02/16/18 08/06/18 History trazodone 150 mg PO HS 02/16/18 08/06/18 History metoprolol tartrate 100 mg PO BID #60 tab 02/19/18 08/06/18 Rx hydralazine 25 mg PO TID 05/15/18 08/06/18 History gabapentin 400 mg PO BID 08/06/18 08/06/18 History Allergies Allergy/AdvReac Type Severity Reaction Status Date / Time codeine AdvReac Mild "trips me Verified 08/06/18 14:15 out" promethazine AdvReac Unknown UNCONTROLLED Verified 08/06/18 14:15 MUSCLE MOVEMENTS Past Med/Surg History Medical History Depression with anxiety stable-continue Paxil and trazodone Diabetes mellitus with hyperglycemia, without long-term current use of insulin increase insulin sliding scale and added Lantus 10 units daily -check [id number] Acute respiratory failure with hypoxia MJ on CPAP Cardiac pacemaker in situ Paroxysmal atrial fibrillation HTN (hypertension), benign Thiamine deficiency Acute exacerbation of chronic obstructive pulmonary disease (COPD) Congestive heart failure (Acute) Acute kidney injury Acute on chronic diastolic (congestive) heart failure Anxiety Atrial fibrillation Cancer BLADDER PROSTATE Chronic back pain Chronic kidney disease STAGE ? Chronic obstructive pulmonary disease Constipation Coronary arteriosclerosis Depression Diabetes mellitus, type 2 GERD (gastroesophageal reflux disease) Gout Gout continue allopurinol for prophylaxis Hiatal hernia History of CVA (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 Hyperlipidemia Hypertension Hypomagnesemia Macular degeneration Osteoarthritis Pacemaker 2011 IMPLANTED FOR A-FIB Peripheral edema Peripheral neuropathy Post traumatic stress disorder Sleep apnea CPAP Stroke CT SCAN NOVEMBER 2017 SHOWED EVIDENCE OF AN OLD STROKE ? EXACT DATE NOVEMBER 2017 SLURRED SPEECH/LEFT FOOT WEAKNESS CURRENTLY STILL HAS WEAKNESS IN LEFT SIDE/REHAB AFTER HOSPITALIZATION AWAITING TO HEAR BACK FOR GI OFFICE IF SURGEON OK WITH PT REMAINING ON BLOOD THINNER. Transient ischemic attack (TIA) Surgical History History of biopsy of bladder History of cardiac cath STENT PLACED 2012 History of cataract surgery RT/LEFT History of cholecystectomy History of heart artery stent History of laminectomy LUMBAR History of prostatectomy History of tooth extraction History of urostomy Pericardial disease PERICARDIAL WINDOW/MICROSCOPIC ([facility]) 2014 Presence of urostomy BLADDER REMOVED D/T CANCER STOMA REVISED Family History Other Family history non-contributory Social History Preferred Language: Tanzanian Communication Ability: Effective Defense Travel Administrator Required: No Beliefs That Will Affect Care: None marital status: Current Living Situation: Spouse and Family Current Living Situation Comment: pt and his live with their dtr current occupational status: retired Other Information That Helps Us Care for You: No Feels Safe at Home: Yes Safety Concerns: Feels Safe At This Time Smoking Status: Former smoker Hx Alcohol Use: No Hx Substance Use: No Review of Systems See HPI for pertinent positives & negatives. and A total of 10 systems reviewed and were otherwise negative Physical Exam Vital Signs Vital Signs - 24 hr 08/06/18 13:40 08/06/18 14:49 08/06/18 17:07 Temperature 36.6 C Temperature Source Oral Sepsis Recent Fever Within 48 Hours No Sepsis New/Unexplained Change in Mental Status No Sepsis Action Taken by Nursing No Action Required Pulse Rate 89 Pulse Rate [Finger] 60 Respiratory Rate 24 Respiratory Effort / Characteristics Respiratory Depth Respiratory Pattern Blood Pressure 163/88 H Blood Pressure [Left Arm] Blood Pressure Mean 113 Blood Pressure Mean [Left Arm] Blood Pressure Position Sitting Pulse Oximetry 91 93 93 Oxygen Delivery Method Nasal Cannula Room Air Nasal Cannula Oxygen Flow Rate 2 3 08/06/18 19:26 08/06/18 19:28 08/06/18 20:15 Temperature Temperature Source Sepsis Recent Fever Within 48 Hours Sepsis New/Unexplained Change in Mental Status Sepsis Action Taken by Nursing Pulse Rate Pulse Rate [Finger] 67 66 Respiratory Rate 20 17 Respiratory Effort / Characteristics Non-Labored Short of Breath SOB on Exertion Non-Labored Spontaneous Respiratory Depth Normal Respiratory Pattern Regular Blood Pressure Blood Pressure [Left Arm] 159/81 H Blood Pressure Mean Blood Pressure Mean [Left Arm] 107 Blood Pressure Position Pulse Oximetry 94 94 Oxygen Delivery Method Nasal Cannula Nasal Cannula Nasal Cannula Oxygen Flow Rate 3 2 2 GENERAL: He is oriented to person, place, and time. He appears well-developed and well-nourished. He does not appear distressed. Orientated to person place but not to time HENT: Exam performed. - Head: Normocephalic and atraumatic. - Right Ear: External ear normal. No mastoid tenderness. - Left Ear: External ear normal. No mastoid tenderness. - Mouth/Throat: Dry mucous membranes. No trismus in the jaw. No dental abscesses or uvula swelling. No oropharyngeal exudate or tonsillar abscesses. EYES: Conjunctivae and EOM are normal. Pupils are equal, round, and reactive to light. Right eye exhibits no discharge. Left eye exhibits no discharge. No scleral icterus. NECK: Normal range of motion. Neck supple. No JVD present. No spinous process tenderness present. No carotid bruit present. No rigidity. No tracheal deviation and normal range of motion present. No Brudzinski's sign and no Kernig's sign noted. CV: Normal rate, regular rhythm, normal heart sounds and intact distal pulses. There is no peripheral edema. Palpable radial pulses bue. 1+ pitting edema bilaterally PULM/CHEST: Effort normal and breath sounds normal. No respiratory distress. No stridor. He has expiratory wheezes. - Chest Wall: He exhibits no tenderness. ABD: The abdomen is soft. Bowel sounds are normal. He has no distension. No mass is present. There is no tenderness. There is no rebound, no guarding, no Bush's sign and no tenderness at McBurney's point. Rovsig negative. Obese. Urostomy bag in place filled with yellow fluid. MUSC/SKEL: Normal range of motion. There is no peripheral edema, tenderness or deformity. LYMPH: No cervical adenopathy. NEURO: He is alert and oriented to person, place, and time. He has normal strength. No cranial nerve deficit or sensory deficit. Coordination and gait normal. GCS eye subscore is 4. GCS verbal subscore is 5. GCS motor subscore is 6. Cerebellar tests wnl. Orientated to person place but not to time. SKIN: Skin is warm and dry. He is not diaphoretic. PSYCH: He has a normal mood and affect. Behavior is normal. Judgment and thought content normal. Course 1406: Past medical records reviewed. The patient was evaluated in room D3, and a complete history and physical examination were performed. 151-I reassessed the patient and noticed patient continued to have expiratory wheezing. I repeated duo neb treatments 1821: Vital signs stable. Patient continues to have wheezing expiratory status post serial DuoNeb treatments. CT of the head within normal limits. Chest x- ray showed cardiomegaly with mild pulmonary vascular congestion. Labs show a creatinine of 1.65. Potassium 3.3. Venous blood gas shows a PCO2 of 52, pH of 7.41. Troponin negative. ProBNP 5005. It is thought that the patient's symptoms are due to a combination of CHF and COPD. at bedside states the patient recently gained 4 pounds, she then gave him an extra dose of Lasix and is weight normalized. The patient states he feels more swollen than normal. Given the patient's continued wheezing, his strong history of pulmonary problems including CHF and COPD, the patient will be admitted to the hospital for continued respiratory support. I talked to Dr. Bond, [facility] who agrees to evaluate the patient for admission. Administered Medications Albuterol (Duoneb) 3 ml NEB QIDR BONIFACIO Stop: 09/05/18 19:59 Last Admin: 08/06/18 20:07 Dose: 3 ml Documented by: [id number] Atorvastatin Calcium (Lipitor) 80 mg PO QPM BONIFACIO Stop: 09/05/18 20:59 Last Admin: 08/06/18 20:55 Dose: 80 mg Documented by: [id number] Buspirone HCl (Buspar) 20 mg PO BID BONIFACIO Stop: 09/05/18 20:59 Last Admin: 08/06/18 20:54 Dose: 20 mg Documented by: [id number] Gabapentin (Neurontin) 400 mg PO BID BONIFACIO Stop: 08/06/18 23:59 Last Admin: 08/06/18 20:55 Dose: 400 mg Documented by: [id number] Heparin Sodium (Porcine) (Heparin Sodium (Porcine)) 5,000 units SQ Q8 BONIFACIO Stop: 09/05/18 21:59 Last Admin: 08/06/18 20:57 Dose: 5,000 units Documented by: [id number] Cosigned by: [id number] Hydralazine HCl (Apresoline) 25 mg PO TID BONIFACIO Stop: 09/05/18 20:59 Last Admin: 08/06/18 20:54 Dose: 25 mg Documented by: [id number] Insulin Aspart (Novolog Flexpen) 0 units SC ACHS BONIFACIO Stop: 09/05/18 20:59 Last Admin: 08/06/18 20:57 Dose: 3 units Documented by: [id number] Cosigned by: [id number] Metoprolol Tartrate (Lopressor) 100 mg PO BID BONIFACIO Stop: 09/05/18 20:59 Last Admin: 08/06/18 20:56 Dose: 100 mg Documented by: [id number] Paroxetine HCl (Paxil Controlled Rel) 25 mg PO HS [facility] Stop: 09/05/18 20:59 Last Admin: 08/06/18 20:56 Dose: 25 mg Documented by: [id number] Trazodone HCl (Desyrel) 150 mg PO [facility] Stop: 09/05/18 20:59 Last Admin: 08/06/18 20:54 Dose: 150 mg Documented by: [id number] Discontinued Medications Albuterol (Duoneb) 3 ml NEB NOW STA Stop: 08/06/18 14:24 Last Admin: 08/06/18 14:55 Dose: 3 ml Documented by: [id number] Albuterol (Duoneb) 3 ml NEB NOW STA Stop: 08/06/18 15:18 Last Admin: 08/06/18 16:00 Dose: 3 ml Documented by: [id number] Albuterol (Duoneb) 3 ml NEB NOW STA Stop: 08/06/18 17:08 Last Admin: 08/06/18 17:11 Dose: 3 ml Documented by: [id number] Furosemide (Lasix) 40 mg IV NOW STA Stop: 08/06/18 17:08 Last Admin: 08/06/18 17:11 Dose: 40 mg Documented by: [id number] Sodium Chloride (Nss 1000ml) 500 mls @ 999 mls/hr IV .Q31M ONE Stop: 08/06/18 14:53 Last Infusion: 08/06/18 15:29 Dose: 0 mls/hr Documented by: [id number] Admin: 08/06/18 14:56 Dose: 999 mls/hr Documented by: [id number] Methylprednisolone (Solumedrol) 125 mg IV NOW STA Stop: 08/06/18 14:24 Last Admin: 08/06/18 14:55 Dose: 125 mg Documented by: [id number] Nitroglycerin (Nitro-Bid 2%) 1 inch EXT ONE ONE Stop: 08/06/18 20:01 Last Admin: 08/06/18 20:58 Dose: 1 inch Documented by: [id number] Medical Decision Making Medical Records Attestation: I reviewed the patient's medical records. Home Medications Current Medication List: was personally reviewed by me Laboratory Data Attestation: I reviewed the patient's lab results. Result diagrams: 08/06/18 14:48 08/06/18 14:48 Lab Results 08/06/18 08/06/18 08/06/18 Range/Units 14:45 14:45 14:48 WBC 8.91 (4.8-10.8) K/uL RBC 4.40 L (4.7-6.1) M/uL Hgb 13.4 L (14.0-18.0) g/dL Hct 39.9 L (42-52) % MCV 90.7 (80-100) fL MCH 30.5 (25-34) pg MCHC 33.6 (32-36) g/dL RDW Std Deviation 49.2 H (36.4-46.3) fL RDW Coeff of Dacia 15.0 H (11.5-14.5) % Plt Count 151 (130-400) K/uL MPV 11.5 H (7.4-10.4) fL Immature Gran % (Auto) 0.1 % Neut % (Auto) 78.0 % Lymph % (Auto) 11.3 % Brown % (Auto) 9.2 % Eos % (Auto) 1.2 % Baso % (Auto) 0.2 % Immature Gran # (Auto) 0.01 (0.00-0.02) K/uL Neut # (Auto) 6.94 H (1.4-6.5) K/uL Lymph # (Auto) 1.01 L (1.2-3.4) K/uL Brown # (Auto) 0.82 H (0.11-0.59) K/uL Eos # (Auto) 0.11 (0-0.5) K/uL Baso # (Auto) 0.02 (0-0.2) K/uL PT (9.0-12.0) Seconds INR (0.9-1.1) APTT (21.0-31.0) Seconds PTT Ratio VBG pH 7.41 (7.36-7.41) VBG pCO2 52 H (38-50) mmHg VBG pO2 44 mmHg VBG HCO3 32 mmol/L VBG O2 Saturation 78.3 % VBG Base Excess 6.1 mEq/L Barometric Pressure 737.3 mm/Hg Sodium (136-145) mmol/L Potassium (3.5-5.1) mmol/L Chloride (98-107) mmol/L Carbon Dioxide (21-32) mmol/L Anion Gap (3-11) BUN (7-18) mg/dl Creatinine (0.6-1.4) mg/dl Est Cr Clr Drug Dosing ml/min Est GFR ( Amer) Est GFR (Non-Af Amer) BUN/Creatinine Ratio (10-20) Glucose (70-99) mg/dl POC Glucose (70-99) Lactate 1.1 (0.4-2.0) mmol/L Calcium (8.5-10.1) mg/dl Magnesium (1.8-2.4) mg/dl Total Bilirubin (0.2-1) mg/dl Direct Bilirubin (0-0.2) mg/dl AST (15-37) U/L ALT (12-78) U/L Alkaline Phosphatase (45-117) U/L Troponin I (0-0.045) ng/ml NT-Pro-B Natriuret Pep (0-900) pg/ml Total Protein (6.4-8.2) gm/dl Albumin (3.4-5.0) gm/dl Lipase (73-393) U/L Urine Color Urine Appearance (Clear) Urine pH (4.5-7.5) Ur Specific [place] (1.000-1.030) Urine Protein (Negative) Urine Glucose (UA) (Negative) Urine Ketones (Negative) Urine Blood (Negative) Urine Nitrite (Negative) Urine Bilirubin (Negative) Urine Urobilinogen (Negative) Ur Leukocyte Esterase (Negative) Urine WBC (Auto) (0-5) /hpf Urine RBC (Auto) (0-4) /hpf U Hyaline Cast (Auto) (0-5) /lpf U Epithel Cells (Auto) (0-5) /lpf Urine Bacteria (Auto) (Negative) Urine Crystals Hepatitis C Ab Screen (Neg) Influenza Type A (PCR) (Neg) Influenza Type B (PCR) (Neg) 08/06/18 08/06/18 08/06/18 Range/Units 14:48 14:48 14:53 WBC (4.8-10.8) K/uL RBC (4.7-6.1) M/uL Hgb (14.0-18.0) g/dL Hct (42-52) % MCV (80-100) fL MCH (25-34) pg MCHC (32-36) g/dL RDW Std Deviation (36.4-46.3) fL RDW Coeff of Dacia (11.5-14.5) % Plt Count (130-400) K/uL MPV (7.4-10.4) fL Immature Gran % (Auto) % Neut % (Auto) % Lymph % (Auto) % Brown % (Auto) % Eos % (Auto) % Baso % (Auto) % Immature Gran # (Auto) (0.00-0.02) K/uL Neut # (Auto) (1.4-6.5) K/uL Lymph # (Auto) (1.2-3.4) K/uL Brown # (Auto) (0.11-0.59) K/uL Eos # (Auto) (0-0.5) K/uL Baso # (Auto) (0-0.2) K/uL PT 10.8 (9.0-12.0) Seconds INR 1.1 (0.9-1.1) APTT 25.2 (21.0-31.0) Seconds PTT Ratio 0.9 VBG pH (7.36-7.41) VBG pCO2 (38-50) mmHg VBG pO2 mmHg VBG HCO3 mmol/L VBG O2 Saturation % VBG Base Excess mEq/L Barometric Pressure mm/Hg Sodium 141 (136-145) mmol/L Potassium 3.3 L (3.5-5.1) mmol/L Chloride 103 (98-107) mmol/L Carbon Dioxide 31 (21-32) mmol/L Anion Gap 7.0 (3-11) BUN 26 H (7-18) mg/dl Creatinine 1.65 H (0.6-1.4) mg/dl Est Cr Clr Drug Dosing 55.5 ml/min Est GFR ( Amer) 48.0 Est GFR (Non-Af Amer) 41.4 BUN/Creatinine Ratio 15.7 (10-20) Glucose 121 H (70-99) mg/dl POC Glucose (70-99) Lactate (0.4-2.0) mmol/L Calcium 8.1 L (8.5-10.1) mg/dl Magnesium 1.8 (1.8-2.4) mg/dl Total Bilirubin 0.7 (0.2-1) mg/dl Direct Bilirubin 0.2 (0-0.2) mg/dl AST 19 (15-37) U/L ALT 23 (12-78) U/L Alkaline Phosphatase 142 H (45-117) U/L Troponin I < 0.015 (0-0.045) ng/ml NT-Pro-B Natriuret Pep 5005 H (0-900) pg/ml Total Protein 7.0 (6.4-8.2) gm/dl Albumin 3.3 L (3.4-5.0) gm/dl Lipase 186 (73-393) U/L Urine Color Urine Appearance (Clear) Urine pH (4.5-7.5) Ur Specific [place] (1.000-1.030) Urine Protein (Negative) Urine Glucose (UA) (Negative) Urine Ketones (Negative) Urine Blood (Negative) Urine Nitrite (Negative) Urine Bilirubin (Negative) Urine Urobilinogen (Negative) Ur Leukocyte Esterase (Negative) Urine WBC (Auto) (0-5) /hpf Urine RBC (Auto) (0-4) /hpf U Hyaline Cast (Auto) (0-5) /lpf U Epithel Cells (Auto) (0-5) /lpf Urine Bacteria (Auto) (Negative) Urine Crystals Hepatitis C Ab Screen Neg (Neg) Influenza Type A (PCR) (Neg) Influenza Type B (PCR) (Neg) 08/06/18 08/06/18 08/06/18 Range/Units 14:55 15:00 20:33 WBC (4.8-10.8) K/uL RBC (4.7-6.1) M/uL Hgb (14.0-18.0) g/dL Hct (42-52) % MCV (80-100) fL MCH (25-34) pg MCHC (32-36) g/dL RDW Std Deviation (36.4-46.3) fL RDW Coeff of Dacia (11.5-14.5) % Plt Count (130-400) K/uL MPV (7.4-10.4) fL Immature Gran % (Auto) % Neut % (Auto) % Lymph % (Auto) % Brown % (Auto) % Eos % (Auto) % Baso % (Auto) % Immature Gran # (Auto) (0.00-0.02) K/uL Neut # (Auto) (1.4-6.5) K/uL Lymph # (Auto) (1.2-3.4) K/uL Brown # (Auto) (0.11-0.59) K/uL Eos # (Auto) (0-0.5) K/uL Baso # (Auto) (0-0.2) K/uL PT (9.0-12.0) Seconds INR (0.9-1.1) APTT (21.0-31.0) Seconds PTT Ratio VBG pH (7.36-7.41) VBG pCO2 (38-50) mmHg VBG pO2 mmHg VBG HCO3 mmol/L VBG O2 Saturation % VBG Base Excess mEq/L Barometric Pressure mm/Hg Sodium (136-145) mmol/L Potassium (3.5-5.1) mmol/L Chloride (98-107) mmol/L Carbon Dioxide (21-32) mmol/L Anion Gap (3-11) BUN (7-18) mg/dl Creatinine (0.6-1.4) mg/dl Est Cr Clr Drug Dosing ml/min Est GFR ( Amer) Est GFR (Non-Af Amer) BUN/Creatinine Ratio (10-20) Glucose (70-99) mg/dl POC Glucose 269 H (70-99) Lactate (0.4-2.0) mmol/L Calcium (8.5-10.1) mg/dl Magnesium (1.8-2.4) mg/dl Total Bilirubin (0.2-1) mg/dl Direct Bilirubin (0-0.2) mg/dl AST (15-37) U/L ALT (12-78) U/L Alkaline Phosphatase (45-117) U/L Troponin I (0-0.045) ng/ml NT-Pro-B Natriuret Pep (0-900) pg/ml Total Protein (6.4-8.2) gm/dl Albumin (3.4-5.0) gm/dl Lipase (73-393) U/L Urine Color Dark Yellow Urine Appearance Cloudy H (Clear) Urine pH 5.5 (4.5-7.5) Ur Specific [place] 1.015 (1.000-1.030) Urine Protein 2+ H (Negative) Urine Glucose (UA) Negative (Negative) Urine Ketones Negative (Negative) Urine Blood Negative (Negative) Urine Nitrite Positive H (Negative) Urine Bilirubin Negative (Negative) Urine Urobilinogen Negative (Negative) Ur Leukocyte Esterase 1+ H (Negative) Urine WBC (Auto) >30 H (0-5) /hpf Urine RBC (Auto) >30 H (0-4) /hpf U Hyaline Cast (Auto) 10-30 H (0-5) /lpf U Epithel Cells (Auto) 5-10 H (0-5) /lpf Urine Bacteria (Auto) 4+ H (Negative) Urine Crystals Not Reportable Hepatitis C Ab Screen (Neg) Influenza Type A (PCR) Neg for Influ A (Neg) Influenza Type B (PCR) Neg for Influ B (Neg) Imaging Data Attestation: I personally reviewed and interpreted this imaging study as follows: Radiologist's Impression: Radiology results as stated below per my review and the radiologist's interpretation: CT head/brain wo con CLINICAL HISTORY: 68 years-old Male presenting with ams, history of stroke, vision issues. TECHNIQUE: Multidetector CT imaging of the head was performed without the use of intravenous contrast. IV contrast: None. One or more dose lowering techniques were used consistent with the principles of ALARA (as low as reasonably achievable), including automatic exposure control, mA or kV adjustment to individual patient size, and/or use of iterative reconstruction. COMPARISON: 01/01/2018. CT DOSE (mGy.cm): The estimated cumulative dose is 537.48 mGy.cm. FINDINGS: Counseling Case Manager topogram: The patient is edentulous. Proportional ventricular and sulcal prominence, likely age-related parenchymal volume loss. No hemorrhage. Periventricular and subcortical white matter hypoattenuation, nonspecific but likely indicative of chronic small vessel ischemic change. Old left parietal lobe cortical infarct. No acute territorial infarct. No mass effect or midline shift. No extra-axial fluid collection. Paranasal sinuses and mastoid air cells clear. Calvarium intact. IMPRESSION: 1. No significant change compared to the prior study. No acute intracranial abnormality. Electronically signed by: Avila Graham M.D. 08/06/2018 3:37 PM XR chest 2V routine HISTORY: 68 years-old Male cough sob acute cough with shortness of breath COMPARISON: Chest radiograph 05/15/2018 TECHNIQUE: Portable AP and lateral views of the chest FINDINGS: Cardiac silhouette is mildly enlarged, unchanged. Stable positioning of the dual lead left subclavian pacer. Mild pulmonary vascular congestion without pneumothorax, pleural effusion, lobar airspace consolidation or overt pulmonary edema. Cholecystectomy clips are noted. Degenerative changes are seen about the shoulders and spine. IMPRESSION: Cardiomegaly with mild pulmonary vascular congestion. The above report was generated using voice recognition software. It may contain grammatical, syntax or spelling errors. Electronically signed by: Theo Noel M.D. 08/06/2018 3:46 PM ECG Data Indication: chest pain Rate (beats per minute): 63 Rhythm: other (paced rhythm ) Findings: + other (qtc 507, qrs 180, Sgarbossa negative) Comparison ECG Date: from (May 2018) Change: no significant change Blood Pressure Blood Pressure Findings: Elevated blood pressure Blood Pressure Disposition: Referred to patients primary care provider [facility] Narrative Vital signs stable. Patient continues to have wheezing expiratory status post serial DuoNeb treatments. CT of the head within normal limits. Chest x-ray showed cardiomegaly with mild pulmonary vascular congestion. Labs show a creatinine of 1.65. Potassium 3.3. Venous blood gas shows a PCO2 of 52, pH of 7.41. Troponin negative. ProBNP 5005. It is thought that the patient's symptoms are due to a combination of CHF and COPD. at bedside states the patient recently gained 4 pounds, she then gave him an extra dose of Lasix and is weight normalized. The patient states he feels more swollen than normal. Given the patient's continued wheezing, his strong history of pulmonary problems including CHF and COPD, the patient will be admitted to the hospital for continued respiratory support. I talked to Dr. Bond [facility] who agrees to evaluate the patient for admission. Impression & Plan CHF (congestive heart failure), COPD (chronic obstructive pulmonary disease) Discharge Plan Visit Data *Final* Discharge Date/Time: 08/06/18 19:40 Chief Complaint: Referred by Doctor Stated Complaint: WHEEZING,COUGH, POSSIBLE PNEUMONIA ED Provider: Eder Fletcher Discharge Problem: CHF (congestive heart failure), COPD (chronic obstructive pulmonary disease) Patient Disposition: Admitted As Inpatient Discharge Problem: CHF (congestive heart failure) Qualifiers: Heart failure type: unspecified Heart failure chronicity: unspecified Qualified Code(s): I50.9 - Heart failure, unspecified COPD (chronic obstructive pulmonary disease) Qualifiers: COPD type: unspecified COPD Qualified Code(s): J44.9 - Chronic obstructive pulmonary disease, unspecified The scribe's documentation has been prepared under my direction and personally reviewed by me in its entirety. I confirm that the note above accurately refle cts all work, treatment, procedures, and medical decision making performed by me.
[2018-08-06] MEDS: FUROSEMIDE 80 MG in SYRINGE 0 ML IV SCH (21:53)
[2018-08-06] MEDS: methylPREDNISolone 40 MG in SYRINGE 0 ML IV SCH (21:53)
[2018-08-07] MEDS: methylPREDNISolone 40 MG in SYRINGE 0 ML IV SCH (05:07)
[2018-08-07] MEDS: HEPARIN SOD 5,000 UNIT/0.5 ML VIAL SQ SCH ×2 (05:07→13:32)
[2018-08-07 06:52] LABS: Hematocrit (blood only) 40.2 % (42-52); Hemoglobin 13.4 g/dL (14.0-18.0); Immature Granulocytes # (auto) 0.01 K/uL (0.00-0.02); Immature Granulocytes % (auto) 0.1 %; Lymphocytes # (auto) 0.44 K/uL (1.2-3.4); Lymphocytes % (auto) 6.1 %; Mean Corpuscular Hgb Conc 33.3 g/dL (32-36); Mean Corpuscular Volume 89.9 fL (80-100); Mean Platelet Volume 12.1 fL (7.4-10.4); Monocytes % (auto) 1.4 %; Neutrophils # (auto) 6.65 K/uL (1.4-6.5); Neutrophils % (auto) 92.4 %; Platelet Count 152 K/uL (130-400); RDW Coefficient of Variation 14.8 % (11.5-14.5); RDW Standard Deviation 48.4 fL (36.4-46.3); Red Blood Count 4.47 M/uL (4.7-6.1)
[2018-08-07] MEDS: ALBUT/IPRATROP 3MG/0.5MG NEB 3 ML VIAL NEB SCH (07:25)
[2018-08-07 07:29] LABS: BUN Creatinine Ratio 16.7 (10-20); Calcium 8.4 mg/dl (8.5-10.1); Creatinine Clr Calc Pharmacy 44.5 ml/min; Est GFR (African American) 37.8; Est GFR (Non-African American) 32.6; Magnesium 1.9 mg/dl (1.8-2.4); Potassium 3.7 mmol/L (3.5-5.1)
[2018-08-07] MEDS: FUROSEMIDE 80 MG in SYRINGE 0 ML IV SCH (08:03)
[2018-08-07] MEDS: METOPROLOL TARTRATE 100 MG TAB PO SCH (08:05)
[2018-08-07] MEDS: INSULIN ASPART 100 UNITS/ML 3 ML PEN SC SCH ×2 (08:07→12:40)
[2018-08-07] MEDS ORDERED: ALBUT/IPRATROP 3MG/0.5MG NEB 3 ML VIAL NEB PRN (08:51)
[2018-08-07] MEDS ORDERED: CYANOCOBALAMIN (VITAMIN B-12) 2,500 MCG TAB.SUBL SL SCH (09:00)
[2018-08-07] MEDS ORDERED: CLOPIDOGREL BISULFATE 75 MG TAB PO SCH (09:00)
[2018-08-07] MEDS ORDERED: ASPIRIN 81 MG ECTAB PO SCH (09:00)
[2018-08-07] MEDS ORDERED: GABAPENTIN 100 MG CAP PO SCH (09:00)
[2018-08-07] MEDS ORDERED: GABAPENTIN 400 MG CAP PO SCH (09:00)
[2018-08-07] MEDS ORDERED: ALLOPURINOL 300 MG TAB PO SCH (09:00)
[2018-08-07] MEDS ORDERED: PANTOprazole 40 MG TAB PO SCH (09:00)
[2018-08-07] MEDS ORDERED: LORATADINE 10 MG TAB PO SCH (09:00)
[2018-08-07] MEDS ORDERED: ISOSORBIDE MONO EXTENDED REL 30 MG TABCR PO SCH (09:30)
[2018-08-07] MEDS ORDERED: BUDESONIDE/FORMOTEROL FUMARATE 160/4.5 60 PUFFS/INHALER INH SCH (09:30)
[2018-08-07] MEDS ORDERED: INSULIN GLARGINE SOLOSTAR 100 UNITS/ML 3 ML PEN SC SCH (09:30)
[2018-08-07 10:36] LABS: Estimated Average Glucose 200 mg/dl; Hemoglobin A1C 8.6 % (4.5-5.6)
--- NOTE | 2018-08-07 12:06 | Medical Student Progress Note ---
Date of Service August 07, 2018 Rick Pierce is a 68 y/o male with a h/o CAD, diastolic CHF, COPD, DM II, HTN, HLD, CKD III, MJ, gout, CVA and bladder cancer in hospital day 2 presenting with 1 week h/o shortness of breath, chest tightness, cough, and 5 lb weight gain. No acute events over night. He reports that he continues to feel tightness on both sides of his chest, and is coughing up yellow sputum. He notes some improvement with breathing. He denies any fevers or chills. In the morning he was given Imdur for chest pain which has lead to mild lightheadedness. Assessment & Plan (1) Shortness of breath: Rick Pierce is a 68 y/o male with a h/o CAD, diastolic CHF, COPD, DM II, HTN, HLD, CKD III, MJ, gout, CVA and bladder cancer in hospital day 2 presenting with acute onset SOB, chest tightness, mildly productive cough, 5 lb increase in weight, and hand swelling without fevers or chills most consistent with CHF exacerbation. 1)Dyspnea/hypoxia/CHF exacerbation -Increase diuresis to 80 mg in morning and 40 mg at night -Continue to monitor weights I/O -NTG paste 2) COPD -Continue NC 2L/min -Continue duonebs and solumedrol 3) CAD -cont ASA, Plavix, B bertin, statin. 3) DM II -placed on SS 4) Hx CVA - Cont ASA, Plavix, statin 5) HTN, HLD - Metoprolol, Hydralazine, Atorvastatin 6) Anxiety/depression - cont Klonopin, Buspar 7) Gout - cont Allopurinol 8) CKD - renal function is at baseline 9) Ua is + which appears to be chronic - we will wait for culture results to provide Abx Full code - Heparin prophylaxis Total time for this admit including review of labs, meds, imaging, records - discussion with pt, and ER attending - 45 min Subjective Review of Systems All systems reviewed & are unremarkable except as noted in HPI & below Constitutional: + weakness and + weight gain; no fever, no chills, no sweats, no malaise and no weight loss Ear, Nose, Mouth, Throat: + dizziness and + hoarseness; no sore throat, no dysphagia and no pain with swallowing Respiratory: as per Subjective / HPI Cardiovascular: as per Subjective / HPI Gastrointestinal: no abdominal pain and no nausea Musculoskeletal: + back pain Neurologic: + unsteadiness Physical Exam Vital Signs (Past 24 Hours): Last Vital Signs Temp 36.4 C L 08/07/18 07:13 Pulse 60 08/07/18 07:25 Resp 20 08/07/18 07:25 BP 193/84 H 08/07/18 07:13 Pulse Ox 92 08/07/18 07:25 Constitutional: WD/WN, vitals as above + obese and cooperative ENMT: Mouth: + lip abnormality (Dry lips) Respiratory: + cough and symmetric chest movement Productive cough induced with inspiration and expiration Cardiovascular: Rate/Rhythm: + abnormal rate Vessels: no JVD Extremities: + vascular access device; no calf tenderness and no edema Irregularly irregular. No murmurs, gallops or rubs Psychiatric: A+Ox3, euthymic affect
[2018-08-07] MEDS ORDERED: FUROSEMIDE 40 MG/4 ML VIAL IV STA (14:54)
[2018-08-07] MEDS ORDERED: FUROSEMIDE 40 MG in SYRINGE 0 ML IV ONE (15:15)
--- NOTE | 2018-08-07 16:48 | Med Student Discharge Summary ---
Date of Service August 07, 2018 Date of Admission/Transfer: August 06 2018 Date of Discharge/Transfer: August 07, 2018 Admitting Diagnosis: CHF exacerbation Discharge Diagnosis: CHF exaceration Secondary Diagnoses: CAD, diastolic CHF, COPD, DM II, HTN, HLD, bladder CA, UTIs, CKD III, MJ, gout, CVA Procedures: Chest X-ray, Head CT (08/06/2018) Consultations: None History of Present Illness (optional): Rick Pierce is a 68 y/o male with a h/o CAD, diastolic CHF, COPD, DM II, HTN, HLD, CKD III, MJ, gout, CVA and bladder who presented with with 1 week h/o shortness of breath, chest tightness, cough, and 5 lb weight gain. Hospital Course: Rick Pierce is a 68 y/o male with a h/o CAD, diastolic CHF, COPD, DM II, HTN, HLD, CKD III, MJ, gout, CVA and bladder cancer in hospital day who presented with acute onset SOB, chest tightness, mildly productive cough, had 5 lb increase in weight, and hand swelling without fevers or chills most consistent with a CHF exacerbation. He was placed on 2L of O2, 40 mg IV Lasix, and given isosorbide. On day 2 he reported improved breathing. He still complained some mild shortness of breath, chest tightness, and mild cough. After conversation with patient about diet, it became apparent that he was taking in more sodium than usual which was likely the triggering factor of his exacerbation. He was given significant counseling about the importance of diet and restricted salt intake to avoid further episodes. Furthermore, because he is a [facility] patient, his insurance would not cover another hospital day at [facility] so option was given to either send him home closely monitored or send to the [facility]. He and his chose that he would be monitored at home. He was advised to continue home O2 of 2L and make sure O2 sat is above 90% with pulse oximetry. If he is trying to maintain O2 sat at 90 with 4L he should contact hospital to get readmitted. His Lasix was increased from 40 mg to 80 mg in the morning and he should continue taking 40 mg in the evening. He should continue to make dietary changes. He was additionally switched from Symbicort to Spireva for his COPD. Condition: Stable. Going home with O2. Disposition: Discharged to home with help from and granddaughter. Medications: Refer below Instructions: Refer below Follow up: Follow up with PCP and cardiology. Check BMPs on Friday to ensure that additional Lasix is not creating too much dehydration Admission HPI Per Admitting Provider PMH: 1) COPD - home 02 with exertion and PRN 2) PAF 3) Pacer 4) Chronic diastolic CHF 5) DM II 6) CAD - stent 2011 7) Depression/anxiety/PTSD 8) HTN 9) HLD 10) CKD III - baseline creat 1.8 11) MJ - CPAP 12) Macular degeneration 13) CVA - mild L residual wekaness 14) Gout 15) Bladder CA - urostomy - chronic UTIs Surgical: 1) Cholecystectomy 2) Bladder resection - urostomy 3) Prostatectomy 4) Lumbar laminectomy Social: Does not drink or smoke presently Family: Noncontributory Discharge Data Consultations 08/06/18 17:14 ED Decision to Admit Stat Hospital Course (1) Shortness of breath: Rick Pierce is a 68 y/o male with a h/o CAD, diastolic CHF, COPD, DM II, HTN, HLD, CKD III, MJ, gout, CVA and bladder cancer in hospital day 2 presenting with acute onset SOB, chest tightness, mildly productive cough, 5 lb weight gain, and hand swelling without fevers or chills. Ddx includes COPD vs. CHF exacerbation but his weight gain and history of increased sodium intake is most consistent with CHF exacerbation. 1)Dyspnea/hypoxia/CHF exacerbation -Increase diuresis from 40 mg in morning and 40 mg at night 80 mg in morning and 40 mg at night -Continue to monitor weights I/O -NTG paste 2) COPD -Continue NC 2L/min -Continue duonebs and solumedrol 3) CAD -cont ASA, Plavix, B bertin, statin. 3) DM II -placed on SS 4) Hx CVA - Cont ASA, Plavix, statin 5) HTN, HLD - Metoprolol, Hydralazine, Atorvastatin 6) Anxiety/depression - cont Klonopin, Buspar 7) Gout - cont Allopurinol 8) CKD - renal function is at baseline 9) Ua is + which appears to be chronic - we will wait for culture results to provide Abx Full code - Heparin prophylaxis Total time for this admit including review of labs, meds, imaging, records - discussion with pt, and ER attending - 45 min Discharge Plan Discharge Items Patient Disposition: Home - Self-Care Reason For Visit: CHF EXACERBATION Discharge Diagnosis: CHF exacerbation (fluid backed up into lungs) Discharge Goals: Diagnostic testing, Improve disease control and Therapeutic intervention Activity: Resume your previous activity Non-emergency contact: Primary Care Provider and Supervisor Special Effects Call non-emergency contact if: you have any medication questions Follow-up/Referrals: Ashwin Gottlieb M.D. [Primary Care Provider] - (you are to follow up with your primary care physician on fridayAugust 10 for lab work. The office will call you for an appointment time. If you do not hear from the office on friday, please contact the office) Diet: Low Sodium (2gm) Addtl Provider Instructions: acute exacerbation of CHF (fluid backed up into the lungs due to a stiffer heart muscle) -based on your echo from january, it looks like your heart muscle is a little stiff -- this makes it harder for you to move a large fluid load, and when your body accumulates fluid, it will back up from your heart into your lungs - causing the shortness of breath that you currently felt -taking the fluid off is fairly straightforward --> more lasix (furosemide) -- we'll have you take 80mg of furosemide in the morning and then 40mg in the afternoon through friday; at that point we'll want you to follow up with your PCP or your semiconductor engineer (whoever can fit you in first) and have labwork (BMP) to be sure that the extra lasix isn't drying you out too much -between here and "back to good as new," you're going to need extra oxygen - fortunately not a lot - but use oxygen to keep your pulse ox above 90% (ideally above 92%) -- as you get better, you'll see that the need for the oxygen starts to go down; you'll most likely need more oxygen with exertion than you do at rest. if you can't keep your numbers above 90% on 4 liters of oxygen, that is a reasonable trigger to say that things aren't going well and you should come back to the hospital for further treatment -since fluid settles to the lowest point, when you lay down, fluid will settle more in your lungs - until you're back to "good as new" definitely sleep at a higher angle so that you don't wake up feeling short of breath --so to summarize for the next few days: take 80mg furosemide in the AM, 40mg in the afternoon use oxygen to keep your pulse ox 90% or higher; if you need more than 4 liters to stay above 90%, get seen right away follow up in the office (PCP or cardiology - our case management team is working on it) to ensure you're getting better and to check labs (BMP) to make sure you're not getting too dry -as we discussed above, taking the fluid off is fairly easy, but keeping it off is the critical part of this ----> in general, when your kidneys see an amount of sodium, they have to hold on to a "matching" amount of water -- so when you take in a lot of sodium, you'll end up holding onto a lot of water (and flooding your lungs) -as a rule, staying less than 2000mg of sodium in a day, and less than 400-500mg of sodium in a meal, should keep you out of trouble. for reference, the [employer] burrito had about 800mg of sodium in it alone! get used to reading labels to see how much sodium is in what you're eating, and then keep track of adding up the numbers to stay at less than 2000mg in any given day, and to stay under 500mg at any given meal (this is easy to do if you eat "real" foods (things that essentially look like they would look if you pulled them out of the ground or out of a field, but very tough to do when you're eating anything processed or prepackaged where the sodium acts as a flavoring agent and preservative) "housekeeping" with your COPD, most people do better when they're on a class of inhalers called "anticholinergics" -- these work to reduce inflammation in your lungs by reducing how much mucous you make; while there are multiple medicines in this class, we'll usually start people on spiriva (tiotropium) because it's generic and only once a day (as opposed to the others that are brand name and/or 2-4 times a day) -it is an inhaler that you'll take every day whether you feel good, bad, or in between. you won't really feel it work when you take it - but over time it will work to help you breathe better and easier (statistically this class of inhalers gets people over flare ups faster, and makes it less likely that they'll land in the hospital when they have a flare up) --also when people have a stiff heart muscle (as you do) they'll often do better with medicines that reduce how hard the heart has to push forward - particularly medicines called "CIERRA inhibitors" or "CIERRA receptor blockers" -- usually these are really well tolerated. because of your baseline of slightly impaired kidney function, we'd want this followed closely, and because we need to be more aggressive with the lasix right now, it is a class of medicines that probably shouldn't be started until early next week at the soonest -- but definitely something that should be carefully tried if it hasn't been before. they would start it at a low dose, then check labs again (BMP) a few days to a week later to ensure your kidney numbers haven't changed -- if they haven't, then it would be well worth your while to continue as those medicines can do a solid job of taking strain off your heart as well as protecting kidneys. Prescriptions: New Spiriva with HandiHaler 18 mcg capsule, w/inhalation device 1 cap INH DAILY Qty: 30 RF: 0 Continued furosemide 40 mg Tablet 40 mg PO BID RF: 0 atorvastatin 80 mg Tablet 80 mg PO QPM RF: 0 ipratropium-albuterol 0.5 mg-3 mg(2.5 mg base)/3 mL Solution For Nebulization 3 ml INHALATION QID PRN (Reason: Shortness Of Breath) RF: 0 nitroglycerin 0.3 mg Tablet, Sublingual 0.3 mg Sublingual DIRECTED PRN (Reason: Chest Pain) RF: 0 clopidogrel [Plavix] 75 mg Tablet 75 mg PO QAM RF: 0 aspirin [Aspir-81] 81 mg Tablet,Delayed Release (Dr/Ec) 81 mg PO QAM RF: 0 pantoprazole 40 mg Tablet,Delayed Release (Dr/Ec) 40 mg PO QAM RF: 0 buspirone 10 mg Tablet 20 mg PO BID RF: 0 allopurinol 300 mg Tablet 300 mg PO QAM RF: 0 loratadine [Claritin] 10 mg Tablet 10 mg PO QAM RF: 0 glipizide 5 mg Tablet 5 mg PO QAM RF: 0 Symbicort 80-4.5 mcg/actuation Hfa Aerosol Inhaler 1 puff INHALATION BID RF: 0 melatonin 10 mg Tablet 10 mg PO HS RF: 0 clonazepam [Klonopin] 1 mg Tablet 0.5 mg PO DAILY PRN (Reason: anxiety) RF: 0 cyanocobalamin (vitamin B-12) [Vitamin B-12] 1,000 mcg Tablet 2,500 mcg PO DAILY RF: 0 acetaminophen [Tylenol Extra Strength] 500 mg Tablet 1,000 mg PO DIRECTED PRN (Reason: Pain) RF: 0 trazodone 100 mg Tablet 150 mg PO HS RF: 0 paroxetine HCl [Paxil CR] 25 mg Tablet Extended Release 24 Hr 25 mg PO HS RF: 0 cholecalciferol (vitamin D3) [Vitamin D3] 1,000 unit Tablet 1,000 unit PO DAILY RF: 0 PreserVision AREDS-2 [id number] Capsule 1 tab PO DAILY RF: 0 metoprolol tartrate 100 mg tablet 100 mg PO BID Qty: 60 RF: 0 hydralazine 25 mg tablet 25 mg PO TID RF: 0 gabapentin 400 mg Capsule 400 mg PO BID RF: 0 Stand-Alone Forms: [facility] Discharge Orders: Discharge Order (Routine); Ordered 08/07/18 Ordered By: Florin Forman Admission Data Admit Date/Time: 08/06/18 18:52 Attending Provider: Florin Forman Admit Provider: Orestes Bond Primary Care Provider: Ashwin Gottlieb Service: Telemetry Other Interventions: Discharge Summary Assessment (RN) Last Done: 08/07/18 16:30 DC Date/Time DO NOT enter until pt leaves facility: 08/07/18 17:39
--- NOTE | 2018-08-07 17:17 | Discharge Summary ---
Date of Service August 07, 2018 Admission HPI Per Admitting Provider PMH: 1) COPD - home 02 with exertion and PRN 2) PAF 3) Pacer 4) Chronic diastolic CHF 5) DM II 6) CAD - stent 2011 7) Depression/anxiety/PTSD 8) HTN 9) HLD 10) CKD III - baseline creat 1.8 11) MJ - CPAP 12) Macular degeneration 13) CVA - mild L residual wekaness 14) Gout 15) Bladder CA - urostomy - chronic UTIs Surgical: 1) Cholecystectomy 2) Bladder resection - urostomy 3) Prostatectomy 4) Lumbar laminectomy Social: Does not drink or smoke presently Family: Noncontributory Principal Diagnosis Acute on chronic diastolic CHF Discharge Data Allergies Allergy/AdvReac Type Severity Reaction Status Date / Time codeine AdvReac Mild "trips me Verified 08/06/18 14:15 out" promethazine AdvReac Unknown UNCONTROLLED Verified 08/06/18 14:15 MUSCLE MOVEMENTS Consultations 08/06/18 17:14 ED Decision to Admit Stat Ordered Studies 08/06/18 14:25 CT head/brain wo con Stat CT head/brain wo con CLINICAL HISTORY: 68 years-old Male presenting with ams, history of stroke, vision issues. TECHNIQUE: Multidetector CT imaging of the head was performed without the use of intravenous contrast. IV contrast: None. One or more dose lowering techniques were used consistent with the principles of ALARA (as low as reasonably achievable), including automatic exposure control, mA or kV adjustment to individual patient size, and/or use of iterative reconstruction. COMPARISON: 01/01/2018. CT DOSE (mGy.cm): The estimated cumulative dose is 537.48 mGy.cm. FINDINGS: [employer] topogram: The patient is edentulous. Proportional ventricular and sulcal prominence, likely age-related parenchymal volume loss. No hemorrhage. Periventricular and subcortical white matter hypoattenuation, nonspecific but likely indicative of chronic small vessel ischemic change. Old left parietal lobe cortical infarct. No acute territorial infarct. No mass effect or midline shift. No extra-axial fluid collection. Paranasal sinuses and mastoid air cells clear. Calvarium intact. IMPRESSION: 1. No significant change compared to the prior study. No acute intracranial abnormality. Electronically signed by: Avila Graham M.D. 08/06/2018 3:37 PM XR chest 2V routine HISTORY: 68 years-old Male cough sob acute cough with shortness of breath COMPARISON: Chest radiograph 05/15/2018 TECHNIQUE: Portable AP and lateral views of the chest FINDINGS: Cardiac silhouette is mildly enlarged, unchanged. Stable positioning of the dual lead left subclavian pacer. Mild pulmonary vascular congestion without pneumo thorax, pleural effusion, lobar airspace consolidation or overt pulmonary edema. Cholecystectomy clips are noted. Degenerative changes are seen about the shoulders and spine. IMPRESSION: Cardiomegaly with mild pulmonary vascular congestion. Lab Results 08/06/18 08/06/18 08/06/18 Range/Units 14:45 14:45 14:48 WBC 8.91 (4.8-10.8) K/uL RBC 4.40 L (4.7-6.1) M/uL Hgb 13.4 L (14.0-18.0) g/dL Hct 39.9 L (42-52) % MCV 90.7 (80-100) fL MCH 30.5 (25-34) pg MCHC 33.6 (32-36) g/dL RDW Std Deviation 49.2 H (36.4-46.3) fL RDW Coeff of Dacia 15.0 H (11.5-14.5) % Plt Count 151 (130-400) K/uL MPV 11.5 H (7.4-10.4) fL Immature Gran % (Auto) 0.1 % Neut % (Auto) 78.0 % Lymph % (Auto) 11.3 % Dickinson % (Auto) 9.2 % Eos % (Auto) 1.2 % Baso % (Auto) 0.2 % Immature Gran # (Auto) 0.01 (0.00-0.02) K/uL Neut # (Auto) 6.94 H (1.4-6.5) K/uL Lymph # (Auto) 1.01 L (1.2-3.4) K/uL Dickinson # (Auto) 0.82 H (0.11-0.59) K/uL Eos # (Auto) 0.11 (0-0.5) K/uL Baso # (Auto) 0.02 (0-0.2) K/uL PT (9.0-12.0) Seconds INR (0.9-1.1) APTT (21.0-31.0) Seconds PTT Ratio VBG pH 7.41 (7.36-7.41) VBG pCO2 52 H (38-50) mmHg VBG pO2 44 mmHg VBG HCO3 32 mmol/L VBG O2 Saturation 78.3 % VBG Base Excess 6.1 mEq/L Barometric Pressure 737.3 mm/Hg Sodium (136-145) mmol/L Potassium (3.5-5.1) mmol/L Chloride (98-107) mmol/L Carbon Dioxide (21-32) mmol/L Anion Gap (3-11) BUN (7-18) mg/dl Creatinine (0.6-1.4) mg/dl Est Cr Clr Drug Dosing ml/min Est GFR ( Amer) Est GFR (Non-Af Amer) BUN/Creatinine Ratio (10-20) Glucose (70-99) mg/dl POC Glucose (70-99) Estimat Average Glucose mg/dl Hemoglobin A1c (4.5-5.6) % Lactate 1.1 (0.4-2.0) mmol/L Calcium (8.5-10.1) mg/dl Magnesium (1.8-2.4) mg/dl Total Bilirubin (0.2-1) mg/dl Direct Bilirubin (0-0.2) mg/dl AST (15-37) U/L ALT (12-78) U/L Alkaline Phosphatase (45-117) U/L Troponin I (0-0.045) ng/ml NT-Pro-B Natriuret Pep (0-900) pg/ml Total Protein (6.4-8.2) gm/dl Albumin (3.4-5.0) gm/dl Lipase (73-393) U/L Urine Color Urine Appearance (Clear) Urine pH (4.5-7.5) Ur Specific Roper (1.000-1.030) Urine Protein (Negative) Urine Glucose (UA) (Negative) Urine Ketones (Negative) Urine Blood (Negative) Urine Nitrite (Negative) Urine Bilirubin (Negative) Urine Urobilinogen (Negative) Ur Leukocyte Esterase (Negative) Urine WBC (Auto) (0-5) /hpf Urine RBC (Auto) (0-4) /hpf U Hyaline Cast (Auto) (0-5) /lpf U Epithel Cells (Auto) (0-5) /lpf Urine Bacteria (Auto) (Negative) Urine Crystals Hepatitis C Ab Screen (Neg) Influenza Type A (PCR) (Neg) Influenza Type B (PCR) (Neg) 08/06/18 08/06/18 08/06/18 Range/Units 14:48 14:48 14:53 WBC (4.8-10.8) K/uL RBC (4.7-6.1) M/uL Hgb (14.0-18.0) g/dL Hct (42-52) % MCV (80-100) fL MCH (25-34) pg MCHC (32-36) g/dL RDW Std Deviation (36.4-46.3) fL RDW Coeff of Dacia (11.5-14.5) % Plt Count (130-400) K/uL MPV (7.4-10.4) fL Immature Gran % (Auto) % Neut % (Auto) % Lymph % (Auto) % Dickinson % (Auto) % Eos % (Auto) % Baso % (Auto) % Immature Gran # (Auto) (0.00-0.02) K/uL Neut # (Auto) (1.4-6.5) K/uL Lymph # (Auto) (1.2-3.4) K/uL Dickinson # (Auto) (0.11-0.59) K/uL Eos # (Auto) (0-0.5) K/uL Baso # (Auto) (0-0.2) K/uL PT 10.8 (9.0-12.0) Seconds INR 1.1 (0.9-1.1) APTT 25.2 (21.0-31.0) Seconds PTT Ratio 0.9 VBG pH (7.36-7.41) VBG pCO2 (38-50) mmHg VBG pO2 mmHg VBG HCO3 mmol/L VBG O2 Saturation % VBG Base Excess mEq/L Barometric Pressure mm/Hg Sodium 141 (136-145) mmol/L Potassium 3.3 L (3.5-5.1) mmol/L Chloride 103 (98-107) mmol/L Carbon Dioxide 31 (21-32) mmol/L Anion Gap 7.0 (3-11) BUN 26 H (7-18) mg/dl Creatinine 1.65 H (0.6-1.4) mg/dl Est Cr Clr Drug Dosing 55.5 ml/min Est GFR ( Amer) 48.0 Est GFR (Non-Af Amer) 41.4 BUN/Creatinine Ratio 15.7 (10-20) Glucose 121 H (70-99) mg/dl POC Glucose (70-99) Estimat Average Glucose mg/dl Hemoglobin A1c (4.5-5.6) % Lactate (0.4-2.0) mmol/L Calcium 8.1 L (8.5-10.1) mg/dl Magnesium 1.8 (1.8-2.4) mg/dl Total Bilirubin 0.7 (0.2-1) mg/dl Direct Bilirubin 0.2 (0-0.2) mg/dl AST 19 (15-37) U/L ALT 23 (12-78) U/L Alkaline Phosphatase 142 H (45-117) U/L Troponin I < 0.015 (0-0.045) ng/ml NT-Pro-B Natriuret Pep 5005 H (0-900) pg/ml Total Protein 7.0 (6.4-8.2) gm/dl Albumin 3.3 L (3.4-5.0) gm/dl Lipase 186 (73-393) U/L Urine Color Urine Appearance (Clear) Urine pH (4.5-7.5) Ur Specific Roper (1.000-1.030) Urine Protein (Negative) Urine Glucose (UA) (Negative) Urine Ketones (Negative) Urine Blood (Negative) Urine Nitrite (Negative) Urine Bilirubin (Negative) Urine Urobilinogen (Negative) Ur Leukocyte Esterase (Negative) Urine WBC (Auto) (0-5) /hpf Urine RBC (Auto) (0-4) /hpf U Hyaline Cast (Auto) (0-5) /lpf U Epithel Cells (Auto) (0-5) /lpf Urine Bacteria (Auto) (Negative) Urine Crystals Hepatitis C Ab Screen Neg (Neg) Influenza Type A (PCR) (Neg) Influenza Type B (PCR) (Neg) 08/06/18 08/06/18 08/06/18 Range/Units 14:55 15:00 20:33 WBC (4.8-10.8) K/uL RBC (4.7-6.1) M/uL Hgb (14.0-18.0) g/dL Hct (42-52) % MCV (80-100) fL MCH (25-34) pg MCHC (32-36) g/dL RDW Std Deviation (36.4-46.3) fL RDW Coeff of Dacia (11.5-14.5) % Plt Count (130-400) K/uL MPV (7.4-10.4) fL Immature Gran % (Auto) % Neut % (Auto) % Lymph % (Auto) % Dickinson % (Auto) % Eos % (Auto) % Baso % (Auto) % Immature Gran # (Auto) (0.00-0.02) K/uL Neut # (Auto) (1.4-6.5) K/uL Lymph # (Auto) (1.2-3.4) K/uL Dickinson # (Auto) (0.11-0.59) K/uL Eos # (Auto) (0-0.5) K/uL Baso # (Auto) (0-0.2) K/uL PT (9.0-12.0) Seconds INR (0.9-1.1) APTT (21.0-31.0) Seconds PTT Ratio VBG pH (7.36-7.41) VBG pCO2 (38-50) mmHg VBG pO2 mmHg VBG HCO3 mmol/L VBG O2 Saturation % VBG Base Excess mEq/L Barometric Pressure mm/Hg Sodium (136-145) mmol/L Potassium (3.5-5.1) mmol/L Chloride (98-107) mmol/L Carbon Dioxide (21-32) mmol/L Anion Gap (3-11) BUN (7-18) mg/dl Creatinine (0.6-1.4) mg/dl Est Cr Clr Drug Dosing ml/min Est GFR ( Amer) Est GFR (Non-Af Amer) BUN/Creatinine Ratio (10-20) Glucose (70-99) mg/dl POC Glucose 269 H (70-99) Estimat Average Glucose mg/dl Hemoglobin A1c (4.5-5.6) % Lactate (0.4-2.0) mmol/L Calcium (8.5-10.1) mg/dl Magnesium (1.8-2.4) mg/dl Total Bilirubin (0.2-1) mg/dl Direct Bilirubin (0-0.2) mg/dl AST (15-37) U/L ALT (12-78) U/L Alkaline Phosphatase (45-117) U/L Troponin I (0-0.045) ng/ml NT-Pro-B Natriuret Pep (0-900) pg/ml Total Protein (6.4-8.2) gm/dl Albumin (3.4-5.0) gm/dl Lipase (73-393) U/L Urine Color Dark Yellow Urine Appearance Cloudy H (Clear) Urine pH 5.5 (4.5-7.5) Ur Specific Roper 1.015 (1.000-1.030) Urine Protein 2+ H (Negative) Urine Glucose (UA) Negative (Negative) Urine Ketones Negative (Negative) Urine Blood Negative (Negative) Urine Nitrite Positive H (Negative) Urine Bilirubin Negative (Negative) Urine Urobilinogen Negative (Negative) Ur Leukocyte Esterase 1+ H (Negative) Urine WBC (Auto) >30 H (0-5) /hpf Urine RBC (Auto) >30 H (0-4) /hpf U Hyaline Cast (Auto) 10-30 H (0-5) /lpf U Epithel Cells (Auto) 5-10 H (0-5) /lpf Urine Bacteria (Auto) 4+ H (Negative) Urine Crystals Not Reportable Hepatitis C Ab Screen (Neg) Influenza Type A (PCR) Neg for Influ A (Neg) Influenza Type B (PCR) Neg for Influ B (Neg) 08/06/18 08/07/18 08/07/18 Range/Units 20:46 05:07 06:07 WBC 7.20 (4.8-10.8) K/uL RBC 4.47 L (4.7-6.1) M/uL Hgb 13.4 L (14.0-18.0) g/dL Hct 40.2 L (42-52) % MCV 89.9 (80-100) fL MCH 30.0 (25-34) pg MCHC 33.3 (32-36) g/dL RDW Std Deviation 48.4 H (36.4-46.3) fL RDW Coeff of Dacia 14.8 H (11.5-14.5) % Plt Count 152 (130-400) K/uL MPV 12.1 H (7.4-10.4) fL Immature Gran % (Auto) 0.1 % Neut % (Auto) 92.4 % Lymph % (Auto) 6.1 % Dickinson % (Auto) 1.4 % Eos % (Auto) 0.0 % Baso % (Auto) 0.0 % Immature Gran # (Auto) 0.01 (0.00-0.02) K/uL Neut # (Auto) 6.65 H (1.4-6.5) K/uL Lymph # (Auto) 0.44 L (1.2-3.4) K/uL Dickinson # (Auto) 0.10 L (0.11-0.59) K/uL Eos # (Auto) 0.00 (0-0.5) K/uL Baso # (Auto) 0.00 (0-0.2) K/uL PT (9.0-12.0) Seconds INR (0.9-1.1) APTT (21.0-31.0) Seconds PTT Ratio VBG pH (7.36-7.41) VBG pCO2 (38-50) mmHg VBG pO2 mmHg VBG HCO3 mmol/L VBG O2 Saturation % VBG Base Excess mEq/L Barometric Pressure mm/Hg Sodium (136-145) mmol/L Potassium (3.5-5.1) mmol/L Chloride (98-107) mmol/L Carbon Dioxide (21-32) mmol/L Anion Gap (3-11) BUN (7-18) mg/dl Creatinine (0.6-1.4) mg/dl Est Cr Clr Drug Dosing ml/min Est GFR ( Amer) Est GFR (Non-Af Amer) BUN/Creatinine Ratio (10-20) Glucose (70-99) mg/dl POC Glucose (70-99) Estimat Average Glucose 200 mg/dl Hemoglobin A1c 8.6 H (4.5-5.6) % Lactate (0.4-2.0) mmol/L Calcium (8.5-10.1) mg/dl Magnesium (1.8-2.4) mg/dl Total Bilirubin (0.2-1) mg/dl Direct Bilirubin (0-0.2) mg/dl AST (15-37) U/L ALT (12-78) U/L Alkaline Phosphatase (45-117) U/L Troponin I < 0.015 (0-0.045) ng/ml NT-Pro-B Natriuret Pep (0-900) pg/ml Total Protein (6.4-8.2) gm/dl Albumin (3.4-5.0) gm/dl Lipase (73-393) U/L Urine Color Urine Appearance (Clear) Urine pH (4.5-7.5) Ur Specific Roper (1.000-1.030) Urine Protein (Negative) Urine Glucose (UA) (Negative) Urine Ketones (Negative) Urine Blood (Negative) Urine Nitrite (Negative) Urine Bilirubin (Negative) Urine Urobilinogen (Negative) Ur Leukocyte Esterase (Negative) Urine WBC (Auto) (0-5) /hpf Urine RBC (Auto) (0-4) /hpf U Hyaline Cast (Auto) (0-5) /lpf U Epithel Cells (Auto) (0-5) /lpf Urine Bacteria (Auto) (Negative) Urine Crystals Hepatitis C Ab Screen (Neg) Influenza Type A (PCR) (Neg) Influenza Type B (PCR) (Neg) 08/07/18 08/07/18 08/07/18 Range/Units 06:07 07:33 11:46 WBC (4.8-10.8) K/uL RBC (4.7-6.1) M/uL Hgb (14.0-18.0) g/dL Hct (42-52) % MCV (80-100) fL MCH (25-34) pg MCHC (32-36) g/dL RDW Std Deviation (36.4-46.3) fL RDW Coeff of Dacia (11.5-14.5) % Plt Count (130-400) K/uL MPV (7.4-10.4) fL Immature Gran % (Auto) % Neut % (Auto) % Lymph % (Auto) % Dickinson % (Auto) % Eos % (Auto) % Baso % (Auto) % Immature Gran # (Auto) (0.00-0.02) K/uL Neut # (Auto) (1.4-6.5) K/uL Lymph # (Auto) (1.2-3.4) K/uL Dickinson # (Auto) (0.11-0.59) K/uL Eos # (Auto) (0-0.5) K/uL Baso # (Auto) (0-0.2) K/uL PT (9.0-12.0) Seconds INR (0.9-1.1) APTT (21.0-31.0) Seconds PTT Ratio VBG pH (7.36-7.41) VBG pCO2 (38-50) mmHg VBG pO2 mmHg VBG HCO3 mmol/L VBG O2 Saturation % VBG Base Excess mEq/L Barometric Pressure mm/Hg Sodium 138 (136-145) mmol/L Potassium 3.7 (3.5-5.1) mmol/L Chloride 100 (98-107) mmol/L Carbon Dioxide 29 (21-32) mmol/L Anion Gap 9.0 (3-11) BUN 34 H (7-18) mg/dl Creatinine 2.01 H D (0.6-1.4) mg/dl Est Cr Clr Drug Dosing 44.5 ml/min Est GFR ( Amer) 37.8 Est GFR (Non-Af Amer) 32.6 BUN/Creatinine Ratio 16.7 (10-20) Glucose 247 H (70-99) mg/dl POC Glucose 231 H 292 H (70-99) Estimat Average Glucose mg/dl Hemoglobin A1c (4.5-5.6) % Lactate (0.4-2.0) mmol/L Calcium 8.4 L (8.5-10.1) mg/dl Magnesium 1.9 (1.8-2.4) mg/dl Total Bilirubin (0.2-1) mg/dl Direct Bilirubin (0-0.2) mg/dl AST (15-37) U/L ALT (12-78) U/L Alkaline Phosphatase (45-117) U/L Troponin I (0-0.045) ng/ml NT-Pro-B Natriuret Pep (0-900) pg/ml Total Protein (6.4-8.2) gm/dl Albumin (3.4-5.0) gm/dl Lipase (73-393) U/L Urine Color Urine Appearance (Clear) Urine pH (4.5-7.5) Ur Specific Roper (1.000-1.030) Urine Protein (Negative) Urine Glucose (UA) (Negative) Urine Ketones (Negative) Urine Blood (Negative) Urine Nitrite (Negative) Urine Bilirubin (Negative) Urine Urobilinogen (Negative) Ur Leukocyte Esterase (Negative) Urine WBC (Auto) (0-5) /hpf Urine RBC (Auto) (0-4) /hpf U Hyaline Cast (Auto) (0-5) /lpf U Epithel Cells (Auto) (0-5) /lpf Urine Bacteria (Auto) (Negative) Urine Crystals Hepatitis C Ab Screen (Neg) Influenza Type A (PCR) (Neg) Influenza Type B (PCR) (Neg) 08/07/18 Range/Units 16:05 WBC (4.8-10.8) K/uL RBC (4.7-6.1) M/uL Hgb (14.0-18.0) g/dL Hct (42-52) % MCV (80-100) fL MCH (25-34) pg MCHC (32-36) g/dL RDW Std Deviation (36.4-46.3) fL RDW Coeff of Dacia (11.5-14.5) % Plt Count (130-400) K/uL MPV (7.4-10.4) fL Immature Gran % (Auto) % Neut % (Auto) % Lymph % (Auto) % Dickinson % (Auto) % Eos % (Auto) % Baso % (Auto) % Immature Gran # (Auto) (0.00-0.02) K/uL Neut # (Auto) (1.4-6.5) K/uL Lymph # (Auto) (1.2-3.4) K/uL Dickinson # (Auto) (0.11-0.59) K/uL Eos # (Auto) (0-0.5) K/uL Baso # (Auto) (0-0.2) K/uL PT (9.0-12.0) Seconds INR (0.9-1.1) APTT (21.0-31.0) Seconds PTT Ratio VBG pH (7.36-7.41) VBG pCO2 (38-50) mmHg VBG pO2 mmHg VBG HCO3 mmol/L VBG O2 Saturation % VBG Base Excess mEq/L Barometric Pressure mm/Hg Sodium (136-145) mmol/L Potassium (3.5-5.1) mmol/L Chloride (98-107) mmol/L Carbon Dioxide (21-32) mmol/L Anion Gap (3-11) BUN (7-18) mg/dl Creatinine (0.6-1.4) mg/dl Est Cr Clr Drug Dosing ml/min Est GFR ( Amer) Est GFR (Non-Af Amer) BUN/Creatinine Ratio (10-20) Glucose (70-99) mg/dl POC Glucose 199 H (70-99) Estimat Average Glucose mg/dl Hemoglobin A1c (4.5-5.6) % Lactate (0.4-2.0) mmol/L Calcium (8.5-10.1) mg/dl Magnesium (1.8-2.4) mg/dl Total Bilirubin (0.2-1) mg/dl Direct Bilirubin (0-0.2) mg/dl AST (15-37) U/L ALT (12-78) U/L Alkaline Phosphatase (45-117) U/L Troponin I (0-0.045) ng/ml NT-Pro-B Natriuret Pep (0-900) pg/ml Total Protein (6.4-8.2) gm/dl Albumin (3.4-5.0) gm/dl Lipase (73-393) U/L Urine Color Urine Appearance (Clear) Urine pH (4.5-7.5) Ur Specific Roper (1.000-1.030) Urine Protein (Negative) Urine Glucose (UA) (Negative) Urine Ketones (Negative) Urine Blood (Negative) Urine Nitrite (Negative) Urine Bilirubin (Negative) Urine Urobilinogen (Negative) Ur Leukocyte Esterase (Negative) Urine WBC (Auto) (0-5) /hpf Urine RBC (Auto) (0-4) /hpf U Hyaline Cast (Auto) (0-5) /lpf U Epithel Cells (Auto) (0-5) /lpf Urine Bacteria (Auto) (Negative) Urine Crystals Hepatitis C Ab Screen (Neg) Influenza Type A (PCR) (Neg) Influenza Type B (PCR) (Neg) Hospital Course (1) Shortness of breath: 68 y/o M Hx CAD, diastolic CHF, COPD, DM II, HTN, HLD, urostomy due to bladder CA and recurrent UTIs, CKD III, MJ, gout, history of CVA. Last admitted 01/2018 with CHF exacerbation and CANDACE. Presents with progressive SOB x 2-3 days and possible 5 pund weight gain as well. Denies a productive cough or a fever,. His states that she had given him additional Lasix over the past 2 days to no avail. He is requiring 3L 02 on arrival to the ER. CXR is consistent with volume overload. Labs are unremarkable excepting a + UA which may be chronic. 1) Dyspnea/hypoxia - likely mutifactorial but mainly owing to CHF exacerbation at present - CHF -after discussion with the patient, he had gone back to a bad habit of eating [employer]s breakfast [employer] [place], which on quick review of has about 800 mg of sodium in it, this combined with his regular sodium intake likely precipitated his CHF exacerbation. He improved enough with diuresis that he was stable for home. He does have chronic oxygen both with portability and home unit, and right now is only on about 2 L, suggesting that he is probably not that far from his baseline, although he notes that he does not wear the oxygen all the time at home. At a careful and deliberate discussion in detail with patient and his on options of staying in the hospital, home with ongoing treatment and close follow-up, or transfer to the [place] for insurance coverage purposes. After discussing all options and noting what home would be entailing, patient and felt most comfortable taking him home. -He is improving -Continue escalated diuresis with Lasix 80 mg in the morning/40 mg in the afternoon for the next 2 days then resume his home dosing of 40 mg twice daily -Oxygen to keep pulse ox greater than 90% (he has a pulse ox) with the instruction that if he needs more than 4 L he should be seen right away -Follow-up with PCP or cardiology on Friday, basic metabolic panel to be drawn at the visit to ensure his creatinine is stable with the diuresis -Consider initiation of an CIERRA or ARB once he is more euvolemic, with close f ollow-up of his creatinine thereafter. If he fails being able to tolerate either of these, or if they have been tried before and he was not able to tolerate them, then give consideration to long-acting nitrate for an CIERRA like benefit given that he is already on hydralazine - COPD -seems to be more or less at baseline, added Spiriva for anticholinergic. No clear need for escalated steroids or antibiotics at this time 2) CAD - no evidence of ACS -safe for home on his home meds 3) DM II -his A1c was 8.6%, reflecting poor baseline control, close outpatient management of this. 4) Hx CVA - Cont ASA, Plavix, statin 5) HTN, HLD - Metoprolol, Hydralazine, Atorvastatin 6) Anxiety/depression - cont Klonopin, Buspar 7) Gout - cont Allopurinol 8) CKD - renal function is at baseline, basic metabolic panel Friday 9) Ua is + -no symptoms, outpatient follow-up Full code - Heparin prophylaxis Stable for discharge to home Total Time Total Time Spent Total Time Spent (In Minutes): Greater than 30 Discharge Plan Discharge Items Patient Disposition: Home - Self-Care Reason For Visit: CHF EXACERBATION Discharge Diagnosis: CHF exacerbation (fluid backed up into lungs) Discharge Goals: Diagnostic testing, Improve disease control and Therapeutic intervention Activity: Resume your previous activity Non-emergency contact: Primary Care Provider and Drill Press Operator Helper Call non-emergency contact if: you have any medication questions Follow-up/Referrals: Ashwin Gottlieb M.D. [Primary Care Provider] - (you are to follow up with your primary care physician on fridayAugust 10 for lab work. The office will call you for an appointment time. If you do not hear from the office on friday alva gibson, please contact the office) Diet: Low Sodium (2gm) Addtl Provider Instructions: acute exacerbation of CHF (fluid backed up into the lungs due to a stiffer heart muscle) -based on your echo from january, it looks like your heart muscle is a little stiff -- this makes it harder for you to move a large fluid load, and when your body accumulates fluid, it will back up from your heart into your lungs - causing the shortness of breath that you currently felt -taking the fluid off is fairly straightforward --> more lasix (furosemide) -- we'll have you take 80mg of furosemide in the morning and then 40mg in the afternoon through friday; at that point we'll want you to follow up with your PCP or your history instructor (whoever can fit you in first) and have labwork (BMP) to be sure that the extra lasix isn't drying you out too much -between here and "back to good as new," you're going to need extra oxygen - fortunately not a lot - but use oxygen to keep your pulse ox above 90% (ideally above 92%) -- as you get better, you'll see that the need for the oxygen starts to go down; you'll most likely need more oxygen with exertion than you do at rest. if you can't keep your numbers above 90% on 4 liters of oxygen, that is a reasonable trigger to say that things aren't going well and you should come back to the hospital for further treatment -since fluid settles to the lowest point, when you lay down, fluid will settle more in your lungs - until you're back to "good as new" definitely sleep at a higher angle so that you don't wake up feeling short of breath --so to summarize for the next few days: take 80mg furosemide in the AM, 40mg in the afternoon use oxygen to keep your pulse ox 90% or higher; if you need more than 4 liters to stay above 90%, get seen right away follow up in the office (PCP or cardiology - our case management team is working on it) to ensure you're getting better and to check labs (BMP) to make sure you're not getting too dry -as we discussed above, taking the fluid off is fairly easy, but keeping it off is the critical part of this ----> in general, when your kidneys see an amount of sodium, they have to hold on to a "matching" amount of water -- so when you take in a lot of sodium, you'll end up holding onto a lot of water (and flooding your lungs) -as a rule, staying less than 2000mg of sodium in a day, and less than 400-500mg of sodium in a meal, should keep you out of trouble. for reference, the [employer] burrito had about 800mg of sodium in it alone! get used to reading labels to see how much sodium is in what you're eating, and then keep track of adding up the numbers to stay at less than 2000mg in any given day, and to stay under 500mg at any given meal (this is easy to do if you eat "real" foods (things that essentially look like they would look if you pulled them out of the ground or out of a field, but very tough to do when you're eating anything processed or prepackaged where the sodium acts as a flavoring agent and preservative) "housekeeping" with your COPD, most people do better when they're on a class of inhalers called "anticholinergics" -- these work to reduce inflammation in your lungs by reducing how much mucous you make; while there are multiple medicines in this class, we'll usually start people on spiriva (tiotropium) because it's generic and only once a day (as opposed to the others that are brand name and/or 2-4 times a day) -it is an inhaler that you'll take every day whether you feel good, bad, or in between. you won't really feel it work when you take it - but over time it will work to help you breathe better and easier (statistically this class of inhalers gets people over flare ups faster, and makes it less likely that they'll land in the hospital when they have a flare up) --also when people have a stiff heart muscle (as you do) they'll often do better with medicines that reduce how hard the heart has to push forward - particularly medicines called "CIERRA inhibitors" or "CIERRA receptor blockers" -- usually these are really well tolerated. because of your baseline of slightly impaired kidney function, we'd want this followed closely, and because we need to be more aggressive with the lasix right now, it is a class of medicines that probably shouldn't be started until early next week at the soonest -- but definitely something that should be carefully tried if it hasn't been before. they would start it at a low dose, then check labs again (BMP) a few days to a week later to ensure your kidney numbers haven't changed -- if they haven't, then it would be well worth your while to continue as those medicines can do a solid job of taking strain off your heart as well as protecting kidneys. Prescriptions: New Spiriva with HandiHaler 18 mcg capsule, w/inhalation device 1 cap INH DAILY Qty: 30 RF: 0 Continued furosemide 40 mg Tablet 40 mg PO BID RF: 0 atorvastatin 80 mg Tablet 80 mg PO QPM RF: 0 ipratropium-albuterol 0.5 mg-3 mg(2.5 mg base)/3 mL Solution For Nebulization 3 ml INHALATION QID PRN (Reason: Shortness Of Breath) RF: 0 nitroglycerin 0.3 mg Tablet, Sublingual 0.3 mg Sublingual DIRECTED PRN (Reason: Chest Pain) RF: 0 clopidogrel [Plavix] 75 mg Tablet 75 mg PO QAM RF: 0 aspirin [Aspir-81] 81 mg Tablet,Delayed Release (Dr/Ec) 81 mg PO QAM RF: 0 pantoprazole 40 mg Tablet,Delayed Release (Dr/Ec) 40 mg PO QAM RF: 0 buspirone 10 mg Tablet 20 mg PO BID RF: 0 allopurinol 300 mg Tablet 300 mg PO QAM RF: 0 loratadine [Claritin] 10 mg Tablet 10 mg PO QAM RF: 0 glipizide 5 mg Tablet 5 mg PO QAM RF: 0 Symbicort 80-4.5 mcg/actuation Hfa Aerosol Inhaler 1 puff INHALATION BID RF: 0 melatonin 10 mg Tablet 10 mg PO HS RF: 0 clonazepam [Klonopin] 1 mg Tablet 0.5 mg PO DAILY PRN (Reason: anxiety) RF: 0 cyanocobalamin (vitamin B-12) [Vitamin B-12] 1,000 mcg Tablet 2,500 mcg PO DAILY RF: 0 acetaminophen [Tylenol Extra Strength] 500 mg Tablet 1,000 mg PO DIRECTED PRN (Reason: Pain) RF: 0 trazodone 100 mg Tablet 150 mg PO HS RF: 0 paroxetine HCl [Paxil CR] 25 mg Tablet Extended Release 24 Hr 25 mg PO HS RF: 0 cholecalciferol (vitamin D3) [Vitamin D3] 1,000 unit Tablet 1,000 unit PO DAILY RF: 0 PreserVision AREDS-2 [id number] Capsule 1 tab PO DAILY RF: 0 metoprolol tartrate 100 mg tablet 100 mg PO BID Qty: 60 RF: 0 hydralazine 25 mg tablet 25 mg PO TID RF: 0 gabapentin 400 mg Capsule 400 mg PO BID RF: 0 Stand-Alone Forms: [facility] Discharge Orders: Discharge Order (Routine); Ordered 08/07/18 Ordered By: Florin Forman Admission Data Admit Date/Time: 08/06/18 18:52 Attending Provider: Florin Forman Admit Provider: Orestes Bond Primary Care Provider: Ashwin Gottlieb Other Providers: Orestes Bond Service: Telemetry Other Interventions: Discharge Summary Assessment (RN) Last Done: 08/07/18 16:30
[2018-08-08] MEDS ORDERED: TIOTROPIUM BROMIDE 5 PUFF/90 MCG INH INH SCH (09:00)
== END 2018-08-07 17:39 | disposition home or self-care (01) | DRG 291 ==
LOC: ED 13:28 → SUATTDRO 18:52 → 2S 18:52

== ENCOUNTER 2019-01-03 23:33 | Inpatient (IN) ==
[2019-01-04 00:34] LABS: Basophils # (auto) 0.02 K/uL (0-0.2); Basophils % (auto) 0.3 %; Eosinophils # (auto) 0.15 K/uL (0-0.5); Eosinophils % (auto) 2.6 %; Hematocrit (blood only) 30.1 % (42-52); Hemoglobin 10.1 g/dL (14.0-18.0); Immature Granulocytes # (auto) 0.02 K/uL (0.00-0.02); Immature Granulocytes % (auto) 0.3 %; Lymphocytes # (auto) 0.52 K/uL (1.2-3.4); Mean Corpuscular Hgb Conc 33.6 g/dL (32-36); Mean Corpuscular Volume 93.8 fL (80-100); Mean Platelet Volume 11.6 fL (7.4-10.4); Monocytes # (auto) 0.46 K/uL (0.11-0.59); Monocytes % (auto) 7.9 %; Neutrophils # (auto) 4.62 K/uL (1.4-6.5); Neutrophils % (auto) 79.9 %; Platelet Count 140 K/uL (130-400); RDW Coefficient of Variation 15.3 % (11.5-14.5); Red Blood Count 3.21 M/uL (4.7-6.1); White Blood Count 5.79 K/uL (4.8-10.8)
[2019-01-04 00:55] LABS: Alanine Aminotransferase 35 U/L (12-78); Albumin Level 3.3 gm/dl (3.4-5.0); Aspartate Aminotransferase 21 U/L (15-37); BUN Creatinine Ratio 18.7 (10-20); Blood Urea Nitrogen 36 mg/dl (7-18); Calcium 8.3 mg/dl (8.5-10.1); Carbon Dioxide 28 mmol/L (21-32); Chloride 106 mmol/L (98-107); Est GFR (Non-African American) 34.5; Glucose 224 mg/dl (70-99); Potassium 4.1 mmol/L (3.5-5.1); Sodium 141 mmol/L (136-145)
[2019-01-04 01:00] LABS: Appearance Urine Clear (Clear); Bacteria Urine Automated 1+ (Negative); Bilirubin Urine Negative (Negative); Blood Urine Negative (Negative); Color Urine Yellow; Epithelial Cell Urine Auto 0-5 /lpf (0-5); Glucose Urine UA Negative (Negative); Ketones Urine Negative (Negative); Leukocyte Esterase Urine 2+ (Negative); Nitrite Urine Positive (Negative); Protein Urine Trace (Negative); RBC Urine Automated 0-4 /hpf (0-4); Specific Gravity Urine 1.016 (1.000-1.030); Urobilinogen Urine Negative (Negative); WBC Urine Automated >30 /hpf (0-5)
[2019-01-04 01:00] LABS: Albumin Globulin Ratio 0.9 (0.9-2); Alkaline Phosphatase 140 U/L (45-117); Bilirubin,Total 1.2 mg/dl (0.2-1); Globulin 3.5 gm/dl (2.5-4.0); NT Pro B Type Natriuretic Pept 7202 pg/ml (0-900); Total Protein 6.8 gm/dl (6.4-8.2); Troponin I < 0.015 ng/ml (0-0.045)
[2019-01-04] MEDS ORDERED: FUROSEMIDE 40 MG/4 ML VIAL IV STA (01:16)
[2019-01-04] MEDS ORDERED: ALBUT/IPRATROP 3MG/0.5MG NEB 3 ML VIAL NEB STA (01:16)
--- NOTE | 2019-01-04 02:26 | Emergency Department Note ---
Entered by Daija Love acting as a scribe for History of Present Illness General Chief complaint: Respiratory Problems Stated complaint: TROUBLE BREATHING,SWELLING IN LEGS Time Seen by Provider: 01/04/19 00:02 Source: patient Mode of arrival: ambulatory Limitations: no limitations History of Present Illness Provider complaint: Shortness of breath Onset (ago): day(s) 3 Location: chest Pain Consistency: + other (worsening) Maximum Pain Intensity: 5 Quality: + other (shortness of breath) Associated symptoms: + fever/chills (positive chills, negative fever) and + other (Additional symptoms: upper and lower extremity edema. Denies: diarrhea); no nausea/vomiting The patient is a 68 year old male with a history of COPD, atrial fibrillation, pacemaker, Diabetes, hypertension, hyperlipidemia CKD, CAD, CHF, CVA, PTSD, resolved bladder and prostate cancer, GERD, cardiac catheterization, and heart artery stent who presents to the Emergency Room with complaints of worsening shortness of breath starting 3 days ago ago. He states he breathing is worse with movement/exertion. No worsening cough. The patient reports that he was referred to [facility] in [place] after evaluation at an Urgent Care a week ago. He states that he was subsequently diagnosed with a TIA and kept in the hospital for 4 days. At this time, his medication regimen was reportedly significantly changed secondary to his high blood pressure, and he was instructed to stop taking his Lasix, Gabapentin, and Lisinopril. Per , the patient is now on Eliquis instead of Heparin. She recalls that nicking his lip while shaving almost required the patient to receive a blood transfusion. The patient notes that he was doing well at the time of discharge but started experiencing worsening symptoms the following day, including upper and lower extremity edema, chills, and shortness of breath. Per , he is normally on 2L O2 but has had to increase to 3-4 lpm over the past few days. She reports that she administered the patient a dose of 40 mg Lasix 2 nights ago in efforts to reduce his extremity edema. She states that the patient's urostomy bag was full yesterday morning. She notes that she has given him 2 more doses of Lasix today without improvement of his edema. The patient otherwise denies any vomiting, diarrhea, and fevers, and his adds that his blood pressure has been normal since discharge. Per , the patient usually receives treatment at the [facility] in [place], but they came here tonight because it was closer and he was having a h eard time breathing. Home Medications Home Medications Medication Instructions Recorded Confirmed Type Symbicort 1 puff INHALATION BID 02/05/18 01/04/19 History allopurinol 300 mg PO QAM 02/05/18 01/04/19 History aspirin [Aspir-81] 81 mg PO QAM 02/05/18 01/04/19 History atorvastatin 80 mg PO QPM 02/05/18 01/04/19 History buspirone 20 mg PO BID 02/05/18 01/04/19 History furosemide 80 mg PO QAM 02/05/18 01/04/19 History glipizide 10 mg PO QAM 02/05/18 01/04/19 History ipratropium-albuterol 3 ml INHALATION QID PRN 02/05/18 01/04/19 History loratadine [Claritin] 10 mg PO QAM 02/05/18 01/04/19 History melatonin 10 mg PO HS 02/05/18 01/04/19 History nitroglycerin 0.3 mg SUBLINGUAL DIRECTED PRN 02/05/18 01/04/19 History pantoprazole 40 mg PO QAM 02/05/18 01/04/19 History PreserVision AREDS-2 1 tab PO QAM 02/16/18 01/04/19 History acetaminophen [Tylenol Extra 1,000 mg PO DIRECTED PRN 02/16/18 01/04/19 History Strength] cholecalciferol (vitamin D3) 1,000 unit PO QAM 02/16/18 01/04/19 History [Vitamin D3] clonazepam [Klonopin] 0.5 mg PO DAILY PRN 02/16/18 01/04/19 History cyanocobalamin (vitamin B-12) 2,500 mcg PO QAM 02/16/18 01/04/19 History [Vitamin B-12] paroxetine HCl [Paxil CR] 50 mg PO HS 02/16/18 01/04/19 History trazodone 150 mg PO HS 02/16/18 01/04/19 History metoprolol tartrate 100 mg PO BID #60 tab 02/19/18 01/04/19 Rx hydralazine 25 mg PO TID 05/15/18 01/04/19 History potassium chloride 10 meq PO QAM 09/28/18 01/04/19 History tiotropium bromide [Spiriva with 1 cap INH QAM 09/28/18 01/04/19 History HandiHaler] thiamine HCl (vitamin B1) 100 mg 100 mg PO .TAKE 1 TABLET DAILY 12/22/18 01/04/19 History tablet tab Lactobacillus acidophilus 1,000 mmu cells PO DAILY 01/04/19 01/04/19 History amlodipine 10 mg PO DAILY 01/04/19 01/04/19 History apixaban [Eliquis] 5 mg PO BID 01/04/19 01/04/19 History furosemide [Lasix] 40 mg PO HS 01/04/19 01/04/19 History Allergies Allergy/AdvReac Type Severity Reaction Status Date / Time codeine AdvReac Mild "trips me Verified 01/04/19 00:06 out" promethazine AdvReac Unknown UNCONTROLLED Verified 01/04/19 00:06 MUSCLE MOVEMENTS Past Med/Surg History Medical History Type 2 diabetes mellitus without complication Recurrent UTI Paroxysmal atrial fibrillation Morbid obesity Essential hypertension CKD (chronic kidney disease), stage III CAD (coronary artery disease), [place] coronary artery Acute on chronic renal insufficiency Chronic obstructive pulmonary disease (Chronic) Sleep apnea (Chronic) CPAP Congestive heart failure (Resolved) Hyperlipidemia (Chronic) Hypertension (Chronic) Atrial fibrillation (Chronic) Pacemaker (Chronic) 2011 IMPLANTED FOR A-FIB Stroke (Resolved) CT SCAN NOVEMBER 2017 SHOWED EVIDENCE OF AN OLD STROKE ? EXACT DATE NOVEMBER 2017 SLURRED SPEECH/LEFT FOOT WEAKNESS CURRENTLY STILL HAS WEAKNESS IN LEFT SIDE/REHAB AFTER HOSPITALIZATION AWAITING TO HEAR BACK FOR GI OFFICE IF SURGEON OK WITH PT REMAINING ON BLOOD THINNER. Transient ischemic attack (TIA) (Resolved) Anxiety (Chronic) Depression (Chronic) Post traumatic stress disorder (Chronic) Macular degeneration (Chronic) Cancer (Resolved) BLADDER PROSTATE GERD (gastroesophageal reflux disease) (Chronic) Hiatal hernia (Chronic) Chronic kidney disease (Chronic) STAGE ? Osteoarthritis (Chronic) Gout (Chronic) Chronic back pain (Chronic) Peripheral neuropathy (Chronic) Diabetes mellitus, type 2 (Chronic) Coronary arteriosclerosis (Chronic) Depression with anxiety (Chronic) stable-continue Paxil and trazodone Thiamine deficiency (Chronic) Acute exacerbation of chronic obstructive pulmonary disease (COPD) (Resolved) Acute respiratory failure with hypoxia (Resolved) Cardiac pacemaker in situ (Resolved) Diabetes mellitus with hyperglycemia, without long-term current use of insulin (Resolved) increase insulin sliding scale and added Lantus 10 units daily -check HgbA1C HTN (hypertension), benign (Resolved) MJ on CPAP (Resolved) Paroxysmal atrial fibrillation (Resolved) Acute kidney injury Acute on chronic diastolic (congestive) heart failure Constipation Gout continue allopurinol for prophylaxis History of CVA (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 Hypomagnesemia Peripheral edema Surgical History History of cardiac cath (Resolved) STENT PLACED 2012 History of heart artery stent (Resolved) History of cataract surgery (Resolved) RT/LEFT History of tooth extraction (Resolved) History of cholecystectomy (Resolved) History of prostatectomy (Resolved) History of biopsy of bladder (Resolved) Presence of urostomy (Chronic) BLADDER REMOVED D/T CANCER STOMA REVISED History of laminectomy (Resolved) LUMBAR Pericardial disease (Resolved) PERICARDIAL WINDOW/MICROSCOPIC ([facility]) 2014 History of urostomy Family History Other Family history non-contributory Social History Preferred Language: Romanian Communication Ability: Effective Systems Integration Manager Required: No Beliefs That Will Affect Care: None marital status: Current Living Situation: Spouse and Family Current Living Situation Comment: pt and his live with their dtr current occupational status: retired Feels Safe at Home: Yes Smoking Status: Former smoker Second Hand Exposure: No ; Hx Alcohol Use: No Hx Substance Use: No Review of Systems See HPI for pertinent positives & negatives. and A total of 10 systems reviewed and were otherwise negative Physical Exam Vital Signs Vital Signs - 24 hr 01/03/19 23:39 01/03/19 23:56 01/03/19 23:59 Temperature 37.0 C Temperature Source Oral Sepsis Recent Fever Within 48 Hours No Sepsis Action Taken by Nursing No Action Required Pulse Rate 64 Pulse Rate [Apical] Respiratory Rate 22 Respiratory Effort / Characteristics Non-Labored Spontaneous Respiratory Depth Normal Respiratory Pattern Regular Blood Pressure 156/69 H Blood Pressure [Right Arm] Blood Pressure Mean 98 Blood Pressure Mean [Right Arm] Blood Pressure Position Sitting Pulse Oximetry 93 95 95 Oxygen Delivery Method Nasal Cannula Nasal Cannula Nasal Cannula Oxygen Flow Rate 3 3 3 01/04/19 00:02 01/04/19 00:12 01/04/19 01:26 Temperature Temperature Source Sepsis Recent Fever Within 48 Hours Sepsis Action Taken by Nursing Pulse Rate Pulse Rate [Apical] 60 60 70 Respiratory Rate 16 13 20 Respiratory Effort / Characteristics Respiratory Depth Respiratory Pattern Blood Pressure Blood Pressure [Right Arm] 98/64 L 161/73 H 163/95 H Blood Pressure Mean Blood Pressure Mean [Right Arm] 75 102 117 Blood Pressure Position Pulse Oximetry 95 95 97 Oxygen Delivery Method Nasal Cannula Nasal Cannula Nasal Cannula Oxygen Flow Rate 3 3 3 01/04/19 01:32 01/04/19 02:27 01/04/19 03:30 Temperature Temperature Source Sepsis Recent Fever Within 48 Hours Sepsis Action Taken by Nursing Pulse Rate Pulse Rate [Apical] 64 69 68 Respiratory Rate 17 18 17 Respiratory Effort / Characteristics Non-Labored Respiratory Depth Respiratory Pattern Blood Pressure Blood Pressure [Right Arm] 183/93 H 154/83 H Blood Pressure Mean Blood Pressure Mean [Right Arm] 123 106 Blood Pressure Position Pulse Oximetry 97 96 96 Oxygen Delivery Method Nasal Cannula Nasal Cannula Nasal Cannula Oxygen Flow Rate 3 3 3 GENERAL: alert, obese, no distress, non-toxic EYE EXAM: normal conjunctiva, PERRL and EOM's grossly intact OROPHARYNX: no exudate, no erythema, lips, buccal mucosa, and tongue normal and mucous membranes are moist NECK: supple, no nuchal rigidity, no adenopathy, non-tender LUNGS: Normal chest wall mechanics, bibasilar rales, oxygen in place via nasal cannula at 4L/min. HEART: no murmurs, S1 normal and S2 normal, pacemaker palpated in left anterior superior chest wall with well-healed incision. ABDOMEN: abdomen soft, non-tender, normo-active bowel sounds, no masses, no rebound or guarding. BACK: Back is symmetrical on inspection and there is no deformity, no midline tenderness, no CVA tenderness. SKIN: no rashes and no bruising UPPER EXTREMITIES: upper extremities are grossly normal. FROM, nml pulses b/l. LOWER EXTREMITIES: Bilateral 3+ lower extremity edema, normal distal pulses. Nml pulses b/l. NEURO EXAM: Normal sensorium, cranial nerves II-XII grossly intact, normal speech, no gross weakness of arms, no gross weakness of legs. Gross sensation intact. Course 0003: The patient was evaluated in room B2, and a complete history and physical examination were performed. 0025: Case mgmt updated that this is a [facility] and that we need to try and obtain records from [facility]. 0117: I discussed with case management the patient's case he likely needs admission. The patient is a [facility] patient who was recently admitted at [facility]. 0144: I checked on the patient and he is stable. 0205: Per case management, [facility] has no available beds for transfer. 2016: I reevaluated the patient and updated him on his results. 0306: On reevaluation, the patient is resting. I discussed the results and findings with him. He verbalized agreement of the treatment plan. [facility] The patient will be evaluated for further management and care. Consultations Consultation #1: [facility] The patient will be evaluated for further management and care. Time: 03:06 Administered Medications Discontinued Medications Albuterol (Duoneb) 3 ml NEB NOW STA Stop: 01/04/19 01:17 Last Admin: 01/04/19 01:30 Dose: 3 ml Documented by: [id number] Furosemide (Lasix) 40 mg IV NOW STA Stop: 01/04/19 01:17 Last Admin: 01/04/19 01:21 Dose: 40 mg Documented by: [id number] Medical Decision Making Differential Diagnosis Differential diagnosis: Etiologies such as infections, reactive airway disease, pneumonia, pneumothorax, COPD, CHF, cardiac ischemia, pulmonary embolism, musculoskeletal, gastrointes tinal, as well as others were entertained. Medical Records Attestation: I reviewed the patient's medical records. Home Medications Current Medication List: was personally reviewed by me Laboratory Data Attestation: I reviewed the patient's lab results. Result diagrams: 01/04/19 00:25 01/04/19 00:25 Lab Results 01/04/19 01/04/19 01/04/19 Range/Units 00:25 00:25 00:51 WBC 5.79 (4.8-10.8) K/uL RBC 3.21 L (4.7-6.1) M/uL Hgb 10.1 L (14.0-18.0) g/dL Hct 30.1 L (42-52) % MCV 93.8 (80-100) fL MCH 31.5 (25-34) pg MCHC 33.6 (32-36) g/dL RDW Std Deviation 52.0 H (36.4-46.3) fL RDW Coeff of Dacia 15.3 H (11.5-14.5) % Plt Count 140 (130-400) K/uL MPV 11.6 H (7.4-10.4) fL Immature Gran % (Auto) 0.3 % Neut % (Auto) 79.9 % Lymph % (Auto) 9.0 % Bea[place]gard % (Auto) 7.9 % Eos % (Auto) 2.6 % Baso % (Auto) 0.3 % Immature Gran # (Auto) 0.02 (0.00-0.02) K/uL Neut # (Auto) 4.62 (1.4-6.5) K/uL Lymph # (Auto) 0.52 L (1.2-3.4) K/uL Bea[place]gard # (Auto) 0.46 (0.11-0.59) K/uL Eos # (Auto) 0.15 (0-0.5) K/uL Baso # (Auto) 0.02 (0-0.2) K/uL Sodium 141 (136-145) mmol/L Potassium 4.1 (3.5-5.1) mmol/L Chloride 106 (98-107) mmol/L Carbon Dioxide 28 (21-32) mmol/L Anion Gap 7.0 (3-11) BUN 36 H (7-18) mg/dl Creatinine 1.92 H (0.6-1.4) mg/dl Est Cr Clr Drug Dosing Not Reportable Est GFR ( Amer) 40.0 Est GFR (Non-Af Amer) 34.5 BUN/Creatinine Ratio 18.7 (10-20) Glucose 224 H (70-99) mg/dl Calcium 8.3 L (8.5-10.1) mg/dl Magnesium 2.0 (1.8-2.4) mg/dl Total Bilirubin 1.2 H (0.2-1) mg/dl AST 21 (15-37) U/L ALT 35 (12-78) U/L Alkaline Phosphatase 140 H (45-117) U/L Troponin I < 0.015 (0-0.045) ng/ml NT-Pro-B Natriuret Pep 7202 H (0-900) pg/ml Total Protein 6.8 (6.4-8.2) gm/dl Albumin 3.3 L (3.4-5.0) gm/dl Globulin 3.5 (2.5-4.0) gm/dl Albumin/Globulin Ratio 0.9 (0.9-2) Lipase 254 (73-393) U/L Urine Color Yellow Urine Appearance Clear (Clear) Urine pH 5.0 (4.5-7.5) Ur Specific [place] 1.016 (1.000-1.030) Urine Protein Trace H (Negative) Urine Glucose (UA) Negative (Negative) Urine Ketones Negative (Negative) Urine Blood Negative (Negative) Urine Nitrite Positive A (Negative) Urine Bilirubin Negative (Negative) Urine Urobilinogen Negative (Negative) Ur Leukocyte Esterase 2+ H (Negative) Urine WBC (Auto) >30 H (0-5) /hpf Urine RBC (Auto) 0-4 (0-4) /hpf U Hyaline Cast (Auto) 1-5 (0-5) /lpf U Epithel Cells (Auto) 0-5 (0-5) /lpf Urine Bacteria (Auto) 1+ H (Negative) Imaging Data Attestation: I personally reviewed and interpreted this imaging study as follows: My Impression: Radiology results as stated below per my review and interpretation: XR CHEST 1V Findings: Pacemaker noted. Cardiomegaly, increased interstitial markings bilaterally, no pleural effusions, no mediastinum. No other significant changes compared to prior. ECG Data Attestation: I personally reviewed and interpreted this ECG as follows: Indication: SOB/dyspnea Rate (beats per minute): 76 Rhythm: other (paced rhythm) Findings: + other (prolonged intervals consistent with pacing) and + left axis deviation; no acute ischemic change Blood Pressure Blood Pressure Findings: Elevated blood pressure Blood Pressure Disposition: further management by hospitalist HAZEL Sawant Patient here ill-appearing with a complicated medical history. Patient complaining of increased shortness of breath and lower extremity edema that he feels is more likely related to fluid then his history of COPD. Patient had recently been instructed to stop taking his Lasix when he was discharged from [facility]. Patient's became concerned that he was filling up with fluid again and restarted herself yesterday. Patient still with increasing lower extremity edema, increased dyspnea particularly with exertion, and requiring more of his home oxygen which he increased from 2 to 4 L/min. No change with nebulizer treatments at home or here. Patient's chest x-ray revealed acute pulmonary edema. Patient was given an additional dose of IV Lasix in the emergency room. Patient did not require BiPAP. Given [facility], case management was involved early on to help make necessary referrals and arrangements. [facility] did not have any available beds and so our hospitalist team here was contacted for additional inpatient management. No evidence of ACS, however patient has significant cardiac history. Patient is anticoagulated due to his chronic A. fib. Patient with some hypertension here, however long-standing history of hypertension. states this is improved compared to recent admission and recent medication changes were made regarding his blood pressure medications. Patient and family aware of all results and plan and were in agreement. Impression & Plan Dyspnea, COPD (chronic obstructive pulmonary disease), Chronic kidney disease, Acute pulmonary edema, Lower extremity edema, Anemia Discharge Plan Visit Data *Final* Discharge Date/Time: 01/04/19 03:48 Chief Complaint: Respiratory Problems Stated Complaint: TROUBLE BREATHING,SWELLING IN LEGS ED Provider: Rosa Rosa Discharge Problem: Dyspnea, COPD (chronic obstructive pulmonary disease), Chronic kidney disease, Acute pulmonary edema, Lower extremity edema, Anemia Patient Disposition: Admitted As Inpatient Discharge Instructions Interventions: ED Discharge Assessment Last Done: 01/04/19 03:48 Discharge Problem: Dyspnea Qualifiers: Dyspnea type: unspecified Qualified Code(s): R06.00 - Dyspnea, unspecified COPD (chronic obstructive pulmonary disease) Qualifiers: COPD type: unspecified COPD Qualified Code(s): J44.9 - Chronic obstructive pulmonary disease, unspecified Chronic kidney disease Qualifiers: Chronic kidney disease stage: unspecified stage Qualified Code(s): N18.9 - Chronic kidney disease, unspecified Anemia Qualifiers: Anemia type: unspecified type Qualified Code(s): D64.9 - Anemia, unspecified The scribe's documentation has been prepared under my direction and personally reviewed by me in its entirety. I confirm that the note above accurately reflects all work, treatment, procedures, and medical decision making performed by me.
--- NOTE | 2019-01-04 02:43 | History & Physical Report ---
Date of Service January 04, 2019 Assessment & Plan (1) Dyspnea: 68 y/o M Hx CAD, diastolic CHF, COPD - 2L 02, PAF, DM II, HTN, HLD, urostomy due to bladder CA - recurrent UTIs, CKD III, MJ, gout, history of CVA. Presents with progressive SOB. He has a chronic productive cough, denies CP or fevers. The pt had recently been admitted to [facility] due to a TIA. At the time of admission, his renal function was impaired compared to baseline. He states that his Lasix was held and that he was told to stop Lasix on discharge. This seems unusual as he is normally on a high dose of 120mg daily. The pt's states that since discharge, he has developed progressive dyspnea and worsening LE edema. Initial CXR is consistent with vascular congestion. Labs are unremarkable. He does have a +UA, however, this looks to be chronic. 1) Dyspnea - this is most likely due to volume overload due to holding Lasix. COPD may be contributing to a lesser extent. There is no current evidence of respiratory infection. We will provide IV Lasix at 40mg QID, monitor I & O and daily weights. He will be placed on scheduled duonebs. If he fails to improve in the short term, more aggressive treatment for COPD may be merited. 2) COPD - no evidence of acute exacerbation - cont prescribed inhaler and duonebs asa cesar 3) CAD - no evidence of ACS - cont ASA, B bertin, statin. 4) AF - cont Eliquis, metoprolol 5) DM II - placed on SS 6) Hx CVA - Cont ASA, statin 7) HTN - cont Hydralazine, metoprolol, Norvasc 8) HLD - cont Atorvastatin 10) Gout - cont Allopurinol 11) CKD - renal function has improved slightly from baseline 9) UA is + which appears to be chronic - we will wait for culture results to provide Abx Full code - Eliquis prophylaxis Total time for this admit including review of labs, meds, imaging, records - discussion with pt, and ER attending - 52 min 6) Anxiety/depression - cont Klonopin, Buspar Present on Admission?: Yes History of Present Illness Primary Care Provider: NO PCP 68 y/o M Hx CAD, diastolic CHF, COPD - 2L 02, PAF, DM II, HTN, HLD, urostomy due to bladder CA - recurrent UTIs, CKD III, MJ, gout, history of CVA. Presents with progressive SOB. He has a chronic productive cough, denies CP or fevers. The pt had recently been admitted to [facility] due to a TIA. At the time of admission, his renal function was impaired compared to baseline. He states that his Lasix was held and that he was told to stop Lasix on discharge. This seems unusual as he is normally on a high dose of 120mg daily. The pt's states that since discharge, he has developed progressive dyspnea and worsening LE edema. Initial CXR is consistent with vascular congestion. Labs are unremarkable. He does have a +UA, however, this looks to be chronic. PMH: 1) COPD - home 02 with exertion and PRN 2) PAF - Eliquis 3) Pacer 4) Chronic diastolic CHF 5) DM II 6) CAD - stent 2011 7) Depression/anxiety/PTSD 8) HTN 9) HLD 10) CKD III - baseline creat 2.0 11) MJ - uses 02 HS as he has not tolerated CPAP 12) Macular degeneration 13) CVA - mild L residual weakness 14) Gout 15) Bladder CA - urostomy - chronic UTIs 16) Morbidly obese Surgical: 1) Cholecystectomy 2) Bladder resection - urostomy 3) Prostatectomy 4) Lumbar laminectomy Social: Does not drink or smoke presently Family: Noncontributory Allergies Allergy/AdvReac Type Severity Reaction Status Date / Time codeine AdvReac Mild "trips me Verified 01/04/19 00:06 out" promethazine AdvReac Unknown UNCONTROLLED Verified 01/04/19 00:06 MUSCLE MOVEMENTS Home Medications Home Medications Medication Instructions Recorded Confirmed Type Symbicort 1 puff INHALATION BID 02/05/18 01/04/19 History allopurinol 300 mg PO QAM 02/05/18 01/04/19 History aspirin [Aspir-81] 81 mg PO QAM 02/05/18 01/04/19 History atorvastatin 80 mg PO QPM 02/05/18 01/04/19 History buspirone 20 mg PO BID 02/05/18 01/04/19 History furosemide 80 mg PO QAM 02/05/18 01/04/19 History glipizide 10 mg PO QAM 02/05/18 01/04/19 History ipratropium-albuterol 3 ml INHALATION QID PRN 02/05/18 01/04/19 History loratadine [Claritin] 10 mg PO QAM 02/05/18 01/04/19 History melatonin 10 mg PO HS 02/05/18 01/04/19 History nitroglycerin 0.3 mg SUBLINGUAL DIRECTED PRN 02/05/18 01/04/19 History pantoprazole 40 mg PO QAM 02/05/18 01/04/19 History PreserVision AREDS-2 1 tab PO QAM 02/16/18 01/04/19 History acetaminophen [Tylenol Extra 1,000 mg PO DIRECTED PRN 02/16/18 01/04/19 History Strength] cholecalciferol (vitamin D3) 1,000 unit PO QAM 02/16/18 01/04/19 History [Vitamin D3] clonazepam [Klonopin] 0.5 mg PO DAILY PRN 02/16/18 01/04/19 History cyanocobalamin (vitamin B-12) 2,500 mcg PO QAM 02/16/18 01/04/19 History [Vitamin B-12] paroxetine HCl [Paxil CR] 50 mg PO HS 02/16/18 01/04/19 History trazodone 150 mg PO HS 02/16/18 01/04/19 History metoprolol tartrate 100 mg PO BID #60 tab 02/19/18 01/04/19 Rx hydralazine 25 mg PO TID 05/15/18 01/04/19 History potassium chloride 10 meq PO QAM 09/28/18 01/04/19 History tiotropium bromide [Spiriva with 1 cap INH QAM 09/28/18 01/04/19 History HandiHaler] thiamine HCl (vitamin B1) 100 mg 100 mg PO .TAKE 1 TABLET DAILY 12/22/18 01/04/19 History tablet tab Lactobacillus acidophilus 1,000 mmu cells PO DAILY 01/04/19 01/04/19 History amlodipine 10 mg PO DAILY 01/04/19 01/04/19 History apixaban [Eliquis] 5 mg PO BID 01/04/19 01/04/19 History furosemide [Lasix] 40 mg PO HS 01/04/19 01/04/19 History Past Med/Surg History Medical History Type 2 diabetes mellitus without complication Recurrent UTI Paroxysmal atrial fibrillation Morbid obesity Essential hypertension CKD (chronic kidney disease), stage III CAD (coronary artery disease), [place] coronary artery Acute on chronic renal insufficiency Chronic obstructive pulmonary disease (Chronic) Sleep apnea (Chronic) CPAP Congestive heart failure (Resolved) Hyperlipidemia (Chronic) Hypertension (Chronic) Atrial fibrillation (Chronic) Pacemaker (Chronic) 2011 IMPLANTED FOR A-FIB Stroke (Resolved) CT SCAN NOVEMBER 2017 SHOWED EVIDENCE OF AN OLD STROKE ? EXACT DATE NOVEMBER 2017 SLURRED SPEECH/LEFT FOOT WEAKNESS CURRENTLY STILL HAS WEAKNESS IN LEFT SIDE/REHAB AFTER HOSPITALIZATION AWAITING TO HEAR BACK FOR GI OFFICE IF SURGEON OK WITH PT REMAINING ON BLOOD THINNER. Transient ischemic attack (TIA) (Resolved) Anxiety (Chronic) Depression (Chronic) Post traumatic stress disorder (Chronic) Macular degeneration (Chronic) Cancer (Resolved) BLADDER PROSTATE GERD (gastroesophageal reflux disease) (Chronic) Hiatal hernia (Chronic) Chronic kidney disease (Chronic) STAGE ? Osteoarthritis (Chronic) Gout (Chronic) Chronic back pain (Chronic) Peripheral neuropathy (Chronic) Diabetes mellitus, type 2 (Chronic) Coronary arteriosclerosis (Chronic) Depression with anxiety (Chronic) stable-continue Paxil and trazodone Thiamine deficiency (Chronic) Acute exacerbation of chronic obstructive pulmonary disease (COPD) (Resolved) Acute respiratory failure with hypoxia (Resolved) Cardiac pacemaker in situ (Resolved) Diabetes mellitus with hyperglycemia, without long-term current use of insulin (Resolved) increase insulin sliding scale and added Lantus 10 units daily -check HgbA1C HTN (hypertension), benign (Resolved) MJ on CPAP (Resolved) Paroxysmal atrial fibrillation (Resolved) Acute kidney injury Acute on chronic diastolic (congestive) heart failure Constipation Gout continue allopurinol for prophylaxis History of CVA (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 Hypomagnesemia Peripheral edema Surgical History History of cardiac cath (Resolved) STENT PLACED 2011 History of heart artery stent (Resolved) History of cataract surgery (Resolved) RT/LEFT History of tooth extraction (Resolved) History of cholecystectomy (Resolved) History of prostatectomy (Resolved) History of biopsy of bladder (Resolved) Presence of urostomy (Chronic) BLADDER REMOVED D/T CANCER STOMA REVISED History of laminectomy (Resolved) LUMBAR Pericardial disease (Resolved) PERICARDIAL WINDOW/MICROSCOPIC ([facility]) 2014 History of urostomy Family History Other Family history non-contributory Social History Preferred Language: Guyanese Communication Ability: Effective Ambulance Paramedic Required: No Beliefs That Will Affect Care: None marital status: Current Living Situation: Spouse and Family Current Living Situation Comment: pt and his live with their dtr current occupational status: retired Feels Safe at Home: Yes Smoking Status: Former smoker Second Hand Exposure: No ; Hx Alcohol Use: No Hx Substance Use: No Review of Systems Review of Systems: Gen: Denies fevers, night sweats, rigors, fatigue, malaise, weight loss/gain ENT: Denies congestion, throat pain, hearing loss Eyes: Denies acute visual changes CV: Denies CP, palpitations Pulmonary: Progressive SOB and chronic cough GI: Denies N/V, diarrhea, constipation Neuro: Denies acute or unilateral weakness, acute gait impairment, headache or acute visual changes Musculoskeletal: Denies joint pain, inflammation Endocrine: Denies polydipsia, polyuria Skin: Denies acute rashes or ulcers Physical Exam Physical Exam: General: Ill-appearing, elderly male, AAO x 3, no distress ENT: No erythema or exudates, no thrush Eyes: LEIGH, EOMI Head and neck: Normocephalic, atraumatic - cannot assess JVD due to habitus. Chest/heart: Nontender, S1,2, iRR, no murmurs Lungs: Poor air movement and cannot discern air entry at the bases - the exam is limited Abdomen: Nontender, nondistended, BS+ Neuro: AAO x 3, speech is clear, no unilateral weakness or loss of sensation, coordination intact Musculoskeletal: No joint inflammation, muscle tenderness Skin: No acute rashes or ulcers Extremities: No clubbing, cyanosis, 3+ edema Results & Data Vital Signs (Past 12 Hours) Vital Signs Temp Pulse Pulse Resp BP BP Pulse Ox 01/04/19 02:27 69 18 183/93 H 96 01/04/19 01:32 64 17 97 01/04/19 01:26 70 20 163/95 H 97 01/04/19 00:12 60 13 161/73 H 95 01/04/19 00:02 60 16 98/64 L 95 01/03/19 23:59 95 01/03/19 23:56 95 01/03/19 23:39 98.6 F 64 22 156/69 H 93 PG Care Time/CCT Total # of Minutes Spent Total Time Spent with Patient: Total time spent is greater than 50% in coordination of care (as documented) at patient's floor/unit and/or counseling patient: (1) Dyspnea Dyspnea type: unspecified Qualified Code(s): R06.00 - Dyspnea, unspecified
[2019-01-04] MEDS ORDERED: MoRPHine SULFATE 2 MG/ML CARP IV PRN (04:22)
[2019-01-04] MEDS ORDERED: ACETAMINOPHEN 325 MG TAB PO PRN (04:22)
[2019-01-04] MEDS ORDERED: POLYETHYLENE (MIRALAX) 17 GM PACK PO PRN (04:22)
[2019-01-04] MEDS ORDERED: ONDANSETRON INJ 2 MG/ML 2 ML VIAL IV PRN (04:22)
[2019-01-04] MEDS ORDERED: NITROGLYCERIN SL 0.4 MG/TAB TAB SL PRN (04:22)
[2019-01-04] MEDS ORDERED: ALBUT/IPRATROP 3MG/0.5MG NEB 3 ML VIAL INH PRN (04:22)
[2019-01-04] MEDS ORDERED: ALUMINUM/MAGNESIUM SUSP 30 ML UDC PO PRN (04:22)
[2019-01-04] MEDS ORDERED: MAGNESIUM HYDROXIDE SUSP 30 ML UDC PO PRN (04:22)
[2019-01-04] MEDS ORDERED: clonazePAM 1 MG TAB PO PRN (04:22)
[2019-01-04] MEDS ORDERED: NITROGLYCERIN 2% OINTMENT 30GM TUBE EXT ONE (04:22)
[2019-01-04] MEDS ORDERED: GLUCOSE 40% GEL 15 GM TUBE PO PRN (04:45)
[2019-01-04] MEDS ORDERED: GLUCAGON FOR INJ 1 MG VIAL IM PRN (04:45)
[2019-01-04] MEDS ORDERED: GLUCOSE 10 TABS/TUBE PO PRN (04:45)
[2019-01-04] MEDS ORDERED: DEXTROSE 50% 50 ML SYRINGE IV PRN (04:45)
[2019-01-04] MEDS ORDERED: CARBOHYDRATES FOR HYPOGLYCEMIA PO PRN (04:45)
--- NOTE | 2019-01-04 06:46 | XRay Report ---
XR chest 1V portable CLINICAL HISTORY: Shortness of breath. COMPARISON STUDY: Chest radiograph August 06, 2018. FINDINGS: Dual lead left subclavian pacemaker is in place. Moderate cardiomegaly is noted. Interstiti al thickening suggests mild pulmonary edema. There may be a trace right pleural effusion. There is no pneumothorax. There are mild bibasilar opacities. IMPRESSION: 1. Mild interstitial pulmonary edema. 2. Trace right pleural effusion and mild bibasilar opacities. Electronically signed by: Moisés Givens M.D. 01/04/2019 6:45 AM
[2019-01-04] MEDS: ALBUT/IPRATROP 3MG/0.5MG NEB 3 ML VIAL NEB SCH ×3 (07:30→18:57)
[2019-01-04] MEDS: FUROSEMIDE 40 MG in SYRINGE 0 ML IV SCH ×3 (08:07→21:19)
[2019-01-04] MEDS: THIAMINE HCL 100 MG TAB PO SCH (08:08)
[2019-01-04] MEDS: ALLOPURINOL 300 MG TAB PO SCH (08:08)
[2019-01-04] MEDS: BUDESONIDE/FORMOTEROL FUMARATE 80/4.5 60 PUFFS/INHALER INH SCH ×2 (08:09→21:21)
[2019-01-04] MEDS: CYANOCOBALAMIN 500 MCG TABLET (VITAMIN B-12) PO SCH (08:09)
[2019-01-04] MEDS: AMLODIPINE BESYLATE 5 MG TAB PO SCH (08:09)
[2019-01-04] MEDS: APIXABAN 5 MG TABLET PO SCH ×2 (08:10→21:21)
[2019-01-04] MEDS: ASPIRIN 81 MG ECTAB PO SCH (08:10)
[2019-01-04] MEDS: LORATADINE 10 MG TAB PO SCH (08:10)
[2019-01-04] MEDS: PANTOprazole 40 MG TAB PO SCH (08:10)
[2019-01-04] MEDS: METOPROLOL TARTRATE 100 MG TAB PO SCH ×2 (08:10→21:19)
[2019-01-04] MEDS: TIOTROPIUM BROMIDE 5 PUFF/90 MCG INH INH SCH (08:11)
[2019-01-04] MEDS: INSULIN ASPART 100 UNITS/ML 3 ML PEN SC SCH ×4 (08:12→21:24)
--- NOTE | 2019-01-04 12:58 | Hospitalist Progress Note ---
Date of Service January 04, 2019 Assessment & Plan (1) Dyspnea: This is most likely due to volume overload due to holding Lasix for the five days preceding admission. COPD may be contributing to a lesser extent. He does have mild bibasilar opacities in on CXR but this may be more due to volume overload than pneumonia. No leukocytosis, no fever. He does have a productive cough. Given his improvement with diuresis, will hold off on abx for now. Continue duonebs (2) Congestive heart failure: acute on chronic diastolic CHF diuresing well, will decrease furosemide to 40 mg TID from QID, home dose furosemide is 140 mg daily last echo 01/2018 with EF 50-55% (3) COPD (chronic obstructive pulmonary disease): continue home inhalers, duonebs (4) Chronic kidney disease: Creat 1.92 which appears to be around baseline. (5) Type 2 diabetes mellitus without complication: bsgs ac & hs, ss (6) CAD (coronary artery disease), [place] coronary artery: no evidence of ACS - cont ASA, B bertin, statin (7) Sleep apnea: may use own cpap (8) Paroxysmal atrial fibrillation: Continue Eliquis and metoprolol (9) Hypertension: continue Hydralazine, metoprolol, Norvasc (10) Hyperlipidemia: continue atorvastatin (11) Gout: continue allopurinol (12) Anxiety: and depression - continue clonazepam and buspirone Supervising Physician Co-Signing Physician Notes I supervised Laura Marquez NP on this patient's care. I discussed the plan of care with her with the plan being as written in her note except for any following changes/exceptions: None. Subjective Mr. Pierce feels that his breathing has improved. He reports cough productive of alarcon sputum. Denies aches or chills Review of Systems Review of Systems: All systems reviewed & are unremarkable except as noted in HPI & below Physical Exam Physical Exam: General: no distress Eyes: normal inspection, PERLL Respiratory: chest non tender, clear to auscultation, normal breath sounds, no respiratory distress, no accessory muscle use Cardiac: regular rate and rhythm, no rub or gallop, no murmur, no edema, no jvd GI/: active bowel sounds, no abd pain or tenderness, soft, non distended Extremities: normal range of motion, normal strength, non tender Neuro/Psych: alert and oriented x 3, normal mood and affect Skin: normal color, dry Results & Data Vital Signs (Past 12 Hours) Vital Signs Temp Pulse Pulse Resp BP BP Pulse Ox 01/04/19 11:16 36.4 C L 61 19 149/79 H 97 01/04/19 08:56 62 01/04/19 07:32 61 18 94 01/04/19 07:19 36.5 C 68 19 172/88 H 93 01/04/19 04:26 36.7 C 61 24 181/78 H 95 01/04/19 03:30 68 17 154/83 H 96 01/04/19 02:27 69 18 183/93 H 96 01/04/19 01:32 64 17 97 01/04/19 01:26 70 20 163/95 H 97 PG Care Time/CCT Total # of Minutes Spent Total Time Spent with Patient: Total time spent is greater than 50% in coordination of care (as documented) at patient's floor/unit and/or counseling patient: (1) Congestive heart failure Heart failure chronicity: acute Heart failure type: systolic Qualified Code(s): I50.21 - Acute systolic (congestive) heart failure (2) Dyspnea Dyspnea type: unspecified Qualified Code(s): R06.00 - Dyspnea, unspecified (3) Chronic kidney disease Chronic kidney disease stage: unspecified stage Qualified Code(s): N18.9 - Chronic kidney disease, unspecified (4) COPD (chronic obstructive pulmonary disease) COPD type: unspecified COPD Qualified Code(s): J44.9 - Chronic obstructive pulmonary disease, unspecified
[2019-01-04] MEDS ORDERED: ATORVASTATIN 40 MG TAB PO SCH (21:00)
[2019-01-04] MEDS ORDERED: TRAZODONE HCL 100 MG TAB PO SCH (21:00)
[2019-01-04] MEDS ORDERED: PARoxetine HCl CONTROLLED REL 12.5 MG TABCR PO SCH (21:00)
[2019-01-05] MEDS: ALBUT/IPRATROP 3MG/0.5MG NEB 3 ML VIAL NEB SCH ×3 (01:46→13:19)
[2019-01-05] MEDS: INSULIN ASPART 100 UNITS/ML 3 ML PEN SC SCH ×2 (07:48→11:38)
[2019-01-05 08:14] LABS: Hematocrit (blood only) 33.1 % (42-52); Hemoglobin 11.2 g/dL (14.0-18.0); Mean Corpuscular Hgb Conc 33.8 g/dL (32-36); Mean Corpuscular Volume 95.1 fL (80-100); Mean Platelet Volume 11.3 fL (7.4-10.4); Platelet Count 178 K/uL (130-400); RDW Coefficient of Variation 15.3 % (11.5-14.5); RDW Standard Deviation 52.7 fL (36.4-46.3); Red Blood Count 3.48 M/uL (4.7-6.1); White Blood Count 6.09 K/uL (4.8-10.8)
[2019-01-05 08:46] LABS: BUN Creatinine Ratio 17.6 (10-20); Calcium 9.6 mg/dl (8.5-10.1); Creatinine Clr Calc Pharmacy 50.4 ml/min; Est GFR (African American) 44.4; Est GFR (Non-African American) 38.3; Potassium 3.9 mmol/L (3.5-5.1)
[2019-01-05] MEDS: TIOTROPIUM BROMIDE 5 PUFF/90 MCG INH INH SCH (08:58)
[2019-01-05] MEDS: BUDESONIDE/FORMOTEROL FUMARATE 80/4.5 60 PUFFS/INHALER INH SCH (08:59)
[2019-01-05] MEDS: FUROSEMIDE 40 MG in SYRINGE 0 ML IV SCH (09:00)
[2019-01-05] MEDS: METOPROLOL TARTRATE 100 MG TAB PO SCH (09:01)
[2019-01-05] MEDS: ASPIRIN 81 MG ECTAB PO SCH (09:02)
[2019-01-05] MEDS: THIAMINE HCL 100 MG TAB PO SCH (09:02)
[2019-01-05] MEDS: APIXABAN 5 MG TABLET PO SCH (09:02)
[2019-01-05] MEDS: CYANOCOBALAMIN 500 MCG TABLET (VITAMIN B-12) PO SCH (09:04)
[2019-01-05] MEDS: ALLOPURINOL 300 MG TAB PO SCH (09:04)
[2019-01-05] MEDS: AMLODIPINE BESYLATE 5 MG TAB PO SCH (09:05)
[2019-01-05] MEDS: LORATADINE 10 MG TAB PO SCH (09:06)
[2019-01-05] MEDS: PANTOprazole 40 MG TAB PO SCH (09:06)
[2019-01-05] MEDS ORDERED: SOD PHOSPHATE/SOD BIPHOSPHATE ENEMA 132 ML BTL PR STA (09:40)
--- NOTE | 2019-01-05 12:17 | Discharge Summary ---
Date of Service January 05, 2019 Admission HPI Per Admitting Provider 68 y/o M Hx CAD, diastolic CHF, COPD - 2L 02, PAF, DM II, HTN, HLD, urostomy due to bladder CA - recurrent UTIs, CKD III, MJ, gout, history of CVA. Presents with progressive SOB. He has a chronic productive cough, denies CP or fevers. The pt had recently been admitted to [place] due to a TIA. At the time of admission, his renal function was impaired compared to baseline. He states that his Lasix was held and that he was told to stop Lasix on discharge. This seems unusual as he is normally on a high dose of 120mg daily. The pt's states that since discharge, he has developed progressive dyspnea and worsening LE edema. Initial CXR is consistent with vascular congestion. Labs are unremarkable. He does have a +UA, however, this looks to be chronic. PMH: 1) COPD - home 02 with exertion and PRN 2) PAF - Eliquis 3) Pacer 4) Chronic diastolic CHF 5) DM II 6) CAD - stent 2011 7) Depression/anxiety/PTSD 8) HTN 9) HLD 10) CKD III - baseline creat 2.0 11) MJ - uses 02 HS as he has not tolerated CPAP 12) Macular degeneration 13) CVA - mild L residual weakness 14) Gout 15) Bladder CA - urostomy - chronic UTIs 16) Morbidly obese Surgical: 1) Cholecystectomy 2) Bladder resection - urostomy 3) Prostatectomy 4) Lumbar laminectomy Social: Does not drink or smoke presently Family: Noncontributory Principal Diagnosis CHF exacerbation Discharge Exam Constitutional WD/WN, vitals as above Respiratory normal respiratory effort, lungs clear to auscultation Cardiovascular RRR, no murmur, no edema Gastrointestinal (Abdomen) Inspection/Auscultation: + abdomen distended and normal bowel sounds Percussion/Palpation: abdomen nontender Musculoskeletal no cyanosis or clubbing, extremities motor strength 5/5 Skin no rashes, warm and dry Neurologic moves all extremities and awake Psychiatric A+Ox3, euthymic affect Discharge Data Allergies Allergy/AdvReac Type Severity Reaction Status Date / Time codeine AdvReac Mild "trips me Verified 01/04/19 00:06 out" promethazine AdvReac Unknown UNCONTROLLED Verified 01/04/19 00:06 MUSCLE MOVEMENTS Consultations 01/04/19 03:44 ED Decision to Admit Stat Hospital Course (1) Dyspnea: This is most likely due to volume overload due to holding Lasix for the five days preceding admission. COPD may be contributing to a lesser extent. He does have mild bibasilar opacities in on CXR but this may be more due to volume overload than pneumonia. No leukocytosis, no fever. He does have a mild produ ctive cough. Given his improvement with diuresis, will hold off on abx for now. Continue duonebs (2) Congestive heart failure: acute on chronic diastolic CHF diuresing well, will decrease furosemide to 40 mg TID from QID, home dose furosemide is 140 mg daily last echo 01/2018 with EF 50-55% Down over 4L this admission (3) COPD (chronic obstructive pulmonary disease): continue home inhalers, duonebs (4) Chronic kidney disease: Creat 1.75 which appears to be around baseline. (5) Type 2 diabetes mellitus without complication: bsgs ac & hs, ss (6) CAD (coronary artery disease), [place] coronary artery: no evidence of ACS - cont ASA, B bertin, statin (7) Sleep apnea: may use own cpap (8) Paroxysmal atrial fibrillation: Continue Eliquis and metoprolol (9) Hypertension: continue Hydralazine, metoprolol, Norvasc (10) Hyperlipidemia: continue atorvastatin (11) Gout: continue allopurinol (12) Anxiety: and depression - continue clonazepam and buspirone Total Time Total Time Spent Total Time Spent (In Minutes): greater than 30 minutes Discharge Plan Discharge Items Patient Disposition: Transfer Acute Care Hospital Reason For Visit: TROUBLE BREATHING,SWELLING IN LEGS Discharge Diagnosis: CHF exacerbation Discharge Goals: Decrease discomfort Activity: Resume your previous activity Lifting: Gradually increase as tolerated Non-emergency contact: Primary Care Provider Call non-emergency contact if: you have any medication questions Follow-up/Referrals: PCP,NO [Primary Care Provider] - Diet: Carb Consistent or DM2 and Heart Healthy Addtl Provider Instructions: Mr. Pierce's home furosemide was listed below. Today he has received 40 mg IV and has been receiving 40 mg TID with good diuresis and improving kidney function. Prescriptions: Continued thiamine HCl (vitamin B1) 100 mg tablet 100 mg PO .TAKE 1 TABLET DAILY RF: 0 furosemide 40 mg Tablet 80 mg PO QAM RF: 0 atorvastatin 80 mg Tablet 80 mg PO QPM RF: 0 ipratropium-albuterol 0.5 mg-3 mg(2.5 mg base)/3 mL Solution For Nebulization 3 ml INHALATION QID PRN (Reason: Shortness Of Breath) RF: 0 nitroglycerin 0.3 mg Tablet, Sublingual 0.3 mg Sublingual DIRECTED PRN (Reason: Chest Pain) RF: 0 aspirin [Aspir-81] 81 mg Tablet,Delayed Release (Dr/Ec) 81 mg PO QAM RF: 0 pantoprazole 40 mg Tablet,Delayed Release (Dr/Ec) 40 mg PO QAM RF: 0 buspirone 10 mg Tablet 20 mg PO BID RF: 0 allopurinol 300 mg Tablet 300 mg PO QAM RF: 0 loratadine [Claritin] 10 mg Tablet 10 mg PO QAM RF: 0 glipizide 5 mg Tablet 10 mg PO QAM RF: 0 Symbicort 80-4.5 mcg/actuation Hfa Aerosol Inhaler 1 puff INHALATION BID RF: 0 melatonin 10 mg Tablet 10 mg PO HS RF: 0 clonazepam [Klonopin] 1 mg Tablet 0.5 mg PO DAILY PRN (Reason: anxiety) RF: 0 cyanocobalamin (vitamin B-12) [Vitamin B-12] 1,000 mcg Tablet 2,500 mcg PO QAM RF: 0 acetaminophen [Tylenol Extra Strength] 500 mg Tablet 1,000 mg PO DIRECTED PRN (Reason: Pain) RF: 0 trazodone 100 mg Tablet 150 mg PO HS RF: 0 paroxetine HCl [Paxil CR] 25 mg Tablet Extended Release 24 Hr 50 mg PO HS RF: 0 cholecalciferol (vitamin D3) [Vitamin D3] 1,000 unit Tablet 1,000 unit PO QAM RF: 0 PreserVision AREDS-2 [id number] Capsule 1 tab PO QAM RF: 0 metoprolol tartrate 100 mg tablet 100 mg PO BID Qty: 60 RF: 0 hydralazine 25 mg tablet 25 mg PO TID RF: 0 Eliquis 5 mg Tablet 5 mg PO BID RF: 0 furosemide [Lasix] 40 mg Tablet 40 mg PO HS RF: 0 Lactobacillus acidophilus 1 billion cell Tablet 1,000 mmu cells PO DAILY RF: 0 amlodipine 10 mg Tablet 10 mg PO DAILY RF: 0 potassium chloride 10 mEq Tablet Extended Release 10 meq PO QAM RF: 0 Spiriva with HandiHaler 18 mcg capsule, w/inhalation device 1 cap INH QAM RF: 0 Stand-Alone Forms: [facility] Discharge Orders: Discharge Order (Routine); Ordered 01/05/19 Ordered By: Laura Maruqez Admission Data Admit Date/Time: 01/04/19 03:00 Attending Provider: Lemuel Rizo Admit Provider: Orestes Bond Primary Care Provider: PCP,SALLY Other Providers: Orestes Bond Service: Telemetry Other Interventions: Discharge Summary Assessment (RN) Last Done: 01/05/19 12:38 DC Date/Time DO NOT enter until pt leaves facility: 01/05/19 13:31 Supervising Physician Co-Signing Physician Notes I supervised Laura Marquez NP on this patient's care. I discussed the plan of care with her with the plan being as written in her note except for any following changes/exceptions: None.
== END 2019-01-05 13:31 | DRG 291 ==
LOC: ED 23:33 → 2S 01-04 03:00 → SUATTDRO 01-04 03:00 → 2S 01-04 03:48

== ENCOUNTER 2019-01-20 15:18 | Observation (INO) ==
--- NOTE | 2019-01-20 16:08 | XRay Report ---
XR chest 1V portable CLINICAL HISTORY: Chest Pain dyspnea COMPARISON STUDY: 01/04/2019 FINDINGS: Moderate cardiomegaly. Permanent bipolar cardiac pacemaker. Lungs are clear. Diminished pul monary vasculature compared to the prior study. IMPRESSION: Cardiomegaly. Otherwise negative study. The above report was generated using voice recognition software. It may contain grammatical, syntax or spelling errors. Electronically signed by: Armen Fierro M.D. 01/20/2019 4:07 PM
[2019-01-20 16:30] LABS: Basophils # (auto) 0.03 K/uL (0-0.2); Basophils % (auto) 0.4 %; Eosinophils # (auto) 0.17 K/uL (0-0.5); Eosinophils % (auto) 2.4 %; Hematocrit (blood only) 30.7 % (42-52); Hemoglobin 10.2 g/dL (14.0-18.0); Immature Granulocytes # (auto) 0.02 K/uL (0.00-0.02); Immature Granulocytes % (auto) 0.3 %; Lymphocytes # (auto) 0.84 K/uL (1.2-3.4); Mean Corpuscular Hemoglobin 32.1 pg (25-34); Mean Corpuscular Hgb Conc 33.2 g/dL (32-36); Mean Corpuscular Volume 96.5 fL (80-100); Mean Platelet Volume 11.6 fL (7.4-10.4); Monocytes # (auto) 0.56 K/uL (0.11-0.59); Neutrophils # (auto) 5.36 K/uL (1.4-6.5); Neutrophils % (auto) 76.9 %; Platelet Count 174 K/uL (130-400); RDW Coefficient of Variation 16.6 % (11.5-14.5); RDW Standard Deviation 57.3 fL (36.4-46.3); Red Blood Count 3.18 M/uL (4.7-6.1); White Blood Count 6.98 K/uL (4.8-10.8)
[2019-01-20 16:43] LABS: INR 1.1 (0.9-1.1); Partial Thromboplastin Ratio 1.1; Partial Thromboplastin Time 30.5 Seconds (21.0-31.0); Prothrombin Time 11.5 Seconds (9.0-12.0)
[2019-01-20 16:49] LABS: Alanine Aminotransferase 25 U/L (12-78); Albumin Level 3.5 gm/dl (3.4-5.0); Aspartate Aminotransferase 19 U/L (15-37); Blood Urea Nitrogen 51 mg/dl (7-18); Calcium 8.2 mg/dl (8.5-10.1); Carbon Dioxide 31 mmol/L (21-32); Chloride 106 mmol/L (98-107); Est GFR (African American) 28.6; Est GFR (Non-African American) 24.7; Glucose 214 mg/dl (70-99); Lipase 205 U/L (73-393); Sodium 142 mmol/L (136-145)
--- NOTE | 2019-01-20 16:50 | Emergency Department Note ---
Entered by Rizwana Lu acting as a scribe for History of Present Illness General Chief complaint: Chest Pain Time Seen by Provider: 01/20/19 15:32 Source: patient and family () History of Present Illness Onset (ago): hour(s) (2.5) Location: chest Radiation: non-radiation Pain Consistency: + now resolved and + other (episode ) Quality: + other (tightness ) Relieved By: + medication (Nitro) Associated symptoms: + other (positive leg swelling; positive bilateral leg and hand weakness; positive constipation) Treatments prior to arrival: other (Nitro) The patient is a 68 year old male who presents to the Emergency Room with complaints of a now resolved episode of chest pain that began at about 1300, about 2.5 hours prior to arrival. The patient states that this episode lasted for about 30 minutes. [place] and describes this pain as tightness. The patient denies radiation of his pain. Per the patient's , the patient's symptoms were relieved after taking Nitro. Per the patient's , the patient's legs look more swollen than at baseline despite him getting extra Lasix during this time. The patient reports being constipated. The patient reports bilateral leg and hand weakness since he was discharged from the hospital earlier this month. The patient's states that the patient is on 3L of oxygen at baseline. The patient's states that the patient recently had a TIA and has previously had a stroke. Per the patient's , the patient is on Eliquis. The patient's denies any recent falls or trauma. Home Medications Home Medications Medication Instructions Recorded Confirmed Type Symbicort 1 puff INHALATION BID 02/05/18 01/20/19 History allopurinol 300 mg PO QAM 02/05/18 01/20/19 History aspirin [Aspir-81] 81 mg PO QAM 02/05/18 01/20/19 History atorvastatin 80 mg PO QPM 02/05/18 01/20/19 History buspirone 20 mg PO BID 02/05/18 01/20/19 History furosemide 80 mg PO QAM 02/05/18 01/20/19 History glipizide 10 mg PO QAM 02/05/18 01/20/19 History ipratropium-albuterol 3 ml INHALATION QID PRN 02/05/18 01/20/19 History loratadine [Claritin] 10 mg PO QAM 02/05/18 01/20/19 History melatonin 10 mg PO HS 02/05/18 01/20/19 History nitroglycerin 0.3 mg SUBLINGUAL DIRECTED PRN 02/05/18 01/20/19 History pantoprazole 40 mg PO QAM 02/05/18 01/20/19 History PreserVision AREDS-2 1 tab PO QAM 02/16/18 01/20/19 History acetaminophen [Tylenol Extra 1,000 mg PO DIRECTED PRN 02/16/18 01/20/19 History Strength] cholecalciferol (vitamin D3) 1,000 unit PO QAM 02/16/18 01/20/19 History [Vitamin D3] clonazepam [Klonopin] 0.5 mg PO DAILY PRN 02/16/18 01/20/19 History cyanocobalamin (vitamin B-12) 2,500 mcg PO QAM 02/16/18 01/20/19 History [Vitamin B-12] paroxetine HCl [Paxil CR] 50 mg PO HS 02/16/18 01/20/19 History trazodone 150 mg PO HS 02/16/18 01/20/19 History metoprolol tartrate 100 mg PO BID #60 tab 02/19/18 01/20/19 Rx hydralazine 25 mg PO TID 05/15/18 01/20/19 History Spiriva with HandiHaler 1 cap INH QA 09/28/18 01/20/19 History potassium chloride 10 meq PO QA 09/28/18 01/20/19 History thiamine HCl (vitamin B1) 100 mg 100 mg PO .TAKE 1 TABLET DAILY 12/22/18 01/20/19 History tablet tab Eliquis 5 mg PO BID 01/04/19 01/20/19 History amlodipine 10 mg PO DAILY 01/04/19 01/20/19 History furosemide [Lasix] 40 mg PO HS 01/04/19 01/20/19 History Allergies Allergy/AdvReac Type Severity Reaction Status Date / Time codeine AdvReac Mild "trips me Verified 01/20/19 16:50 out" promethazine AdvReac Unknown UNCONTROLLED Verified 01/20/19 16:50 MUSCLE MOVEMENTS Past Med/Surg History Medical History Type 2 diabetes mellitus without complication Recurrent UTI Paroxysmal atrial fibrillation Morbid obesity Essential hypertension CKD (chronic kidney disease), stage III CAD (coronary artery disease), [place] coronary artery Acute on chronic renal insufficiency Chronic obstructive pulmonary disease (Chronic) Sleep apnea (Chronic) CPAP Congestive heart failure (Resolved) Hyperlipidemia (Chronic) Hypertension (Chronic) Atrial fibrillation (Chronic) Pacemaker (Chronic) 2011 IMPLANTED FOR A-FIB Stroke (Resolved) CT SCAN NOVEMBER 2017 SHOWED EVIDENCE OF AN OLD STROKE ? EXACT DATE NOVEMBER 2017 SLURRED SPEECH/LEFT FOOT WEAKNESS CURRENTLY STILL HAS WEAKNESS IN LEFT SIDE/REHAB AFTER HOSPITALIZATION AWAITING TO HEAR BACK FOR GI OFFICE IF SURGEON OK WITH PT REMAINING ON BLOOD THINNER. Transient ischemic attack (TIA) (Resolved) Anxiety (Chronic) Depression (Chronic) Post traumatic stress disorder (Chronic) Macular degeneration (Chronic) Cancer (Resolved) BLADDER PROSTATE GERD (gastroesophageal reflux disease) (Chronic) Hiatal hernia (Chronic) Chronic kidney disease (Chronic) STAGE ? Osteoarthritis (Chronic) Gout (Chronic) Chronic back pain (Chronic) Peripheral neuropathy (Chronic) Diabetes mellitus, type 2 (Chronic) Coronary arteriosclerosis (Chronic) Depression with anxiety (Chronic) stable-continue Paxil and trazodone Thiamine deficiency (Chronic) Acute exacerbation of chronic obstructive pulmonary disease (COPD) (Resolved) Acute respiratory failure with hypoxia (Resolved) Cardiac pacemaker in situ (Resolved) Diabetes mellitus with hyperglycemia, without long-term current use of insulin (Resolved) increase insulin sliding scale and added Lantus 10 units daily -check HgbA1C HTN (hypertension), benign (Resolved) MJ on CPAP (Resolved) Paroxysmal atrial fibrillation (Resolved) Acute kidney injury Acute on chronic diastolic (congestive) heart failure Constipation Gout continue allopurinol for prophylaxis History of CVA (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 Hypomagnesemia Peripheral edema Surgical History History of cardiac cath (Resolved) STENT PLACED 2011 History of heart artery stent (Resolved) History of cataract surgery (Resolved) RT/LEFT History of tooth extraction (Resolved) History of cholecystectomy (Resolved) History of prostatectomy (Resolved) History of biopsy of bladder (Resolved) Presence of urostomy (Chronic) BLADDER REMOVED D/T CANCER STOMA REVISED History of laminectomy (Resolved) LUMBAR Pericardial disease (Resolved) PERICARDIAL WINDOW/MICROSCOPIC ([facility] 2014 History of urostomy Family History Other Family history non-contributory Social History Preferred Language: Amharic Communication Ability: Effective Booker Required: No Beliefs That Will Affect Care: None marital status: Current Living Situation: Spouse Current Living Situation Comment: pt and his live with their dtr current occupational status: retired Other Information That Helps Us Care for You: No Feels Safe at Home: Yes Safety Concerns: Feels Safe At This Time Smoking Status: Never smoker Second Hand Exposure: No ; Hx Alcohol Use: No Hx Substance Use: No Review of Systems See HPI for pertinent positives & negatives. and A total of 10 systems reviewed and were otherwise negative Physical Exam Vital Signs Vital Signs - 24 hr 01/20/19 15:30 01/20/19 15:32 01/20/19 15:33 Temperature 36.5 C Temperature Source Oral Sepsis Recent Fever Within 48 Hours No Sepsis Action Taken by Nursing No Action Required Pulse Rate 62 67 63 Pulse Rate [Finger] Pulse Rate from SpO2 Sensor 62 60 Respiratory Rate 15 26 H 20 Respiratory Depth Shallow Respiratory Pattern Tachypnea Blood Pressure 134/63 134/64 Blood Pressure [Right Arm] Blood Pressure Mean 86 87 Blood Pressure Mean [Right Arm] Pulse Oximetry 96 97 94 Oxygen Delivery Method Nasal Cannula Nasal Cannula Nasal Cannula Oxygen Flow Rate 3 3 3 01/20/19 15:40 01/20/19 15:50 01/20/19 16:00 Temperature Temperature Source Sepsis Recent Fever Within 48 Hours Sepsis Action Taken by Nursing Pulse Rate 60 60 60 Pulse Rate [Finger] Pulse Rate from SpO2 Sensor 60 59 L 60 Respiratory Rate 18 19 18 Respiratory Depth Respiratory Pattern Blood Pressure 131/65 Blood Pressure [Right Arm] Blood Pressure Mean 87 Blood Pressure Mean [Right Arm] Pulse Oximetry 97 96 98 Oxygen Delivery Method Nasal Cannula Nasal Cannula Nasal Cannula Oxygen Flow Rate 3 3 3 01/20/19 16:10 01/20/19 16:20 01/20/19 16:30 Temperature Temperature Source Sepsis Recent Fever Within 48 Hours Sepsis Action Taken by Nursing Pulse Rate 64 68 60 Pulse Rate [Finger] Pulse Rate from SpO2 Sensor 63 58 L 60 Respiratory Rate 21 18 13 Respiratory Depth Respiratory Pattern Blood Pressure 146/67 H Blood Pressure [Right Arm] Blood Pressure Mean 93 Blood Pressure Mean [Right Arm] Pulse Oximetry 94 97 98 Oxygen Delivery Method Nasal Cannula Nasal Cannula Nasal Cannula Oxygen Flow Rate 3 3 3 01/20/19 16:36 01/20/19 16:40 01/20/19 16:50 Temperature Temperature Source Sepsis Recent Fever Within 48 Hours Sepsis Action Taken by Nursing Pulse Rate 66 60 Pulse Rate [Finger] 60 Pulse Rate from SpO2 Sensor 58 L 60 Respiratory Rate 14 14 17 Respiratory Depth Respiratory Pattern Blood Pressure Blood Pressure [Right Arm] 146/67 H Blood Pressure Mean Blood Pressure Mean [Right Arm] 93 Pulse Oximetry 98 98 99 Oxygen Delivery Method Nasal Cannula Nasal Cannula Nasal Cannula Oxygen Flow Rate 3 3 3 01/20/19 17:00 01/20/19 17:10 01/20/19 17:20 Temperature Temperature Source Sepsis Recent Fever Within 48 Hours Sepsis Action Taken by Nursing Pulse Rate 61 62 60 Pulse Rate [Finger] Pulse Rate from SpO2 Sensor 61 59 L 59 L Respiratory Rate 18 13 17 Respiratory Depth Respiratory Pattern Blood Pressure 140/61 Blood Pressure [Right Arm] Blood Pressure Mean 87 Blood Pressure Mean [Right Arm] Pulse Oximetry 99 97 98 Oxygen Delivery Method Nasal Cannula Nasal Cannula Nasal Cannula Oxygen Flow Rate 3 3 3 01/20/19 17:30 01/20/19 17:40 01/20/19 17:50 Temperature Temperature Source Sepsis Recent Fever Within 48 Hours Sepsis Action Taken by Nursing Pulse Rate 60 61 60 Pulse Rate [Finger] Pulse Rate from SpO2 Sensor 59 L 60 60 Respiratory Rate 15 15 16 Respiratory Depth Respiratory Pattern Blood Pressure 140/74 Blood Pressure [Right Arm] Blood Pressure Mean 96 Blood Pressure Mean [Right Arm] Pulse Oximetry 97 96 97 Oxygen Delivery Method Nasal Cannula Nasal Cannula Nasal Cannula Oxygen Flow Rate 3 3 3 01/20/19 17:57 01/20/19 18:00 01/20/19 18:10 Temperature Temperature Source Sepsis Recent Fever Within 48 Hours Sepsis Action Taken by Nursing Pulse Rate 60 71 Pulse Rate [Finger] 60 Pulse Rate from SpO2 Sensor 60 69 Respiratory Rate 20 21 27 H Respiratory Depth Respiratory Pattern Blood Pressure 139/71 Blood Pressure [Right Arm] 140/74 Blood Pressure Mean 93 Blood Pressure Mean [Right Arm] 96 Pulse Oximetry 96 97 93 Oxygen Delivery Method Nasal Cannula Nasal Cannula Nasal Cannula Oxygen Flow Rate 3 3 3 01/20/19 18:20 01/20/19 18:30 01/20/19 18:40 Temperature Temperature Source Sepsis Recent Fever Within 48 Hours Sepsis Action Taken by Nursing Pulse Rate 60 60 67 Pulse Rate [Finger] Pulse Rate from SpO2 Sensor 60 Respiratory Rate 16 19 18 Respiratory Depth Respiratory Pattern Blood Pressure 129/73 Blood Pressure [Right Arm] Blood Pressure Mean 91 Blood Pressure Mean [Right Arm] Pulse Oximetry 98 Oxygen Delivery Method Nasal Cannula Nasal Cannula Nasal Cannula Oxygen Flow Rate 3 3 3 General: Chronically-ill appearing older male wearing baseline nasal cannula oxygen in no acute distress. HEENT: Normal cephalic atraumatic. Pupils are equal round and reactive to light. Extraocular movements are intact. Oropharynx is pink with moist mucous membranes. No swelling of the mouth lips or tongue. Neck: Supple with a midline trachea. No meningeal signs or stiffness, no JVD or bruits. No Stridor. Chest: Pacemaker in left chest. Clear to auscultation bilaterally. No wheezes or rhonchi. No increased work of breathing. Heart: regular rate and rhythm. Abdomen: Soft nontender, nondistended without rebound guarding or rigidity. Extremities: 1+ lower extremity edema bilaterally. No cyanosis clubbing or edema. No calf tenderness or asymmetry Spine/Back. Non tender to palpation. No CVA tenderness Skin: Good turgor without rashes. Neurologic exam: Cranial nerves two through 12 are intact. Motor and sensation are intact and symmetrical throughout. Course 1534: Past medical records reviewed. The patient was evaluated in room B7. A complete history and physical exam was performed. 1706: Upon reevaluation, the patient is currently pain free. I suggested further evaluation in the hospital and talked to the case investigator. The patient states that he would [facility]. 1745: [facility] states that they are not an acute care facility and any patients with chest pain would be transferred. The patient will be kept here for further evaluation. 1754: [facility]. Consultations Consultation #1: I [facility] the [facility] for further evaluation. Time: 17:54 Administered Medications [facility] [place] Stop: 02/20/19 08:59 Last Admin: 01/21/19 08:03 Dose: 300 mg Documented by: [id number] Amlodipine Besylate (Norvasc) 10 mg PO DAILY [facility] Stop: 02/20/19 08:59 Last Admin: 01/21/19 08:02 Dose: 10 mg Documented by: [id number] Apixaban (Eliquis) 5 mg PO BID [facility] Stop: 02/19/19 20:59 Last Admin: 01/21/19 08:03 Dose: 5 mg Documented by: [id number] Admin: 01/20/19 20:52 Dose: 5 mg Documented by: [id number] Aspirin (Ecotrin Ectab) 81 mg PO QAM [facility] Stop: 02/20/19 08:59 Last Admin: 01/21/19 08:03 Dose: 81 mg Documented by: [id number] Atorvastatin Calcium (Lipitor) 80 mg PO QPM [facility] Stop: 02/19/19 20:59 Last Admin: 01/20/19 20:50 Dose: 80 mg Documented by: [id number] Budesonide/Formoterol Fumarate (Symbicort 80mcg/4.5mcg) 1 puffs INH BID [facility] Stop: 02/19/19 20:59 Last Admin: 01/21/19 08:04 Dose: 1 puffs Documented by: [id number] Admin: 01/20/19 20:53 Dose: 1 puffs Documented by: [id number] Buspirone HCl (Buspar) 20 mg PO BID [facility] Stop: 02/19/19 20:59 Last Admin: 01/21/19 08:03 Dose: 20 mg Documented by: [id number] Admin: 01/20/19 20:51 Dose: 20 mg Documented by: [id number] Cyanocobalamin (Vitamin B-12) 2,500 mcg SL QAM [facility] Stop: 02/20/19 08:59 Last Admin: 01/21/19 08:04 Dose: 2,500 mcg Documented by: [id number] Hydralazine HCl (Apresoline) 25 mg PO TID [facility] Stop: 02/19/19 20:59 Last Admin: 01/21/19 08:04 Dose: 25 mg Documented by: [id number] Admin: 01/20/19 20:52 Dose: 25 mg Documented by: [id number] Insulin Aspart (Novolog Flexpen) 0 units SC ACHS [facility] Stop: 02/19/19 20:59 Last Admin: 01/21/19 12:12 Dose: 3 units Documented by: [id number] Cosigned by: [id number] Admin: 01/21/19 08:02 Dose: 2 units Documented by: [id number] Cosigned by: [id number] Admin: 01/20/19 20:54 Dose: 3 units Documented by: [id number] Cosigned by: [id number] Loratadine (Claritin) 10 mg PO QAM [facility] Stop: 02/20/19 08:59 Last Admin: 01/21/19 08:03 Dose: 10 mg Documented by: [id number] Metoprolol Tartrate (Lopressor) 100 mg PO BID [facility] Stop: 02/19/19 20:59 Last Admin: 01/21/19 08:02 Dose: 100 mg Documented by: [id number] Admin: 01/20/19 20:51 Dose: 100 mg Documented by: [id number] Multivitamins/Minerals (Multivitamin W/ Minerals Tab) 1 tab PO DAILY [facility] Stop: 02/20/19 08:59 Last Admin: 01/21/19 08:03 Dose: 1 tab Documented by: [id number] Pantoprazole Sodium (Protonix) 40 mg PO QAM [facility] Stop: 02/20/19 08:59 Last Admin: 01/21/19 08:03 Dose: 40 mg Documented by: [id number] Paroxetine HCl (Paxil Controlled Rel) 50 mg PO HS [facility] Stop: 02/19/19 20:59 Last Admin: 01/20/19 20:53 Dose: 50 mg Documented by: [id number] Polyethylene Glycol (Miralax Powder Packet) 17 gm PO DAILY PRN PRN Reason: Constipation Stop: 02/19/19 19:47 Last Admin: 01/21/19 08:08 Dose: 17 gm Documented by: [id number] Potassium Chloride (Klor-Con M10) 10 meq PO QAM [facility] Stop: 02/20/19 08:59 Last Admin: 01/21/19 08:02 Dose: 10 meq Documented by: [id number] Thiamine HCl (Vitamin B-1) 100 mg PO DAILY [facility] Stop: 02/20/19 08:59 Last Admin: 01/21/19 08:02 Dose: 100 mg Documented by: [id number] Tiotropium Burns (Spiriva) 1 puffs INH QAM [facility] Stop: 02/20/19 08:59 Last Admin: 01/21/19 08:05 Dose: 1 puffs Documented by: [id number] Trazodone HCl (Desyrel) 150 mg PO HS [facility] Stop: 02/19/19 20:59 Last Admin: 01/20/19 20:51 Dose: 150 mg Documented by: [id number] Vitamin D (Vitamin D3) 1,000 units PO QAM [facility] Stop: 02/20/19 08:59 Last Admin: 01/21/19 08:03 Dose: 1,000 units Documented by: [id number] Medical Decision Making Differential Diagnosis Differential diagnoses include acute coronary syndrome, arrhythmia, CHF, COPD exacerbation, anemia, electrolyte or metabolic abnormality, and others were considered. Medical Records Attestation: I reviewed the patient's medical records. Home Medications Current Medication List: was personally reviewed by me Laboratory Data Attestation: I reviewed the patient's lab results. Result diagrams: 01/20/19 15:35 01/21/19 05:58 Lab Results 01/20/19 01/20/19 01/20/19 Range/Units 15:35 15:35 15:35 WBC 6.98 (4.8-10.8) K/uL RBC 3.18 L (4.7-6.1) M/uL Hgb 10.2 L (14.0-18.0) g/dL Hct 30.7 L (42-52) % MCV 96.5 (80-100) fL MCH 32.1 (25-34) pg MCHC 33.2 (32-36) g/dL RDW Std Deviation 57.3 H (36.4-46.3) fL RDW Coeff of [place]acia 16.6 H (11.5-14.5) % Plt Count 174 (130-400) K/uL MPV 11.6 H (7.4-10.4) fL Immature Gran % (Auto) 0.3 % Neut % (Auto) 76.9 % Lymph % (Auto) 12.0 % [place] % (Auto) 8.0 % Eos % (Auto) 2.4 % Baso % (Auto) 0.4 % Immature Gran # (Auto) 0.02 (0.00-0.02) K/uL Neut # (Auto) 5.36 (1.4-6.5) K/uL Lymph # (Auto) 0.84 L (1.2-3.4) K/uL [place] # (Auto) 0.56 (0.11-0.59) K/uL Eos # (Auto) 0.17 (0-0.5) K/uL Baso # (Auto) 0.03 (0-0.2) K/uL PT 11.5 (9.0-12.0) Seconds INR 1.1 (0.9-1.1) APTT 30.5 (21.0-31.0) Seconds PTT Ratio 1.1 Sodium 142 (136-145) mmol/L Potassium 4.0 (3.5-5.1) mmol/L Chloride 106 (98-107) mmol/L Carbon Dioxide 31 (21-32) mmol/L Anion Gap 5.0 (3-11) BUN 51 H (7-18) mg/dl Creatinine 2.53 H (0.6-1.4) mg/dl Est Cr Clr Drug Dosing 36.0 ml/min Est GFR ( Amer) 28.6 Est GFR (Non-Af Amer) 24.7 BUN/Creatinine Ratio 20.0 (10-20) Glucose 214 H (70-99) mg/dl Calcium 8.2 L (8.5-10.1) mg/dl Total Bilirubin 0.5 (0.2-1) mg/dl AST 19 (15-37) U/L ALT 25 (12-78) U/L Alkaline Phosphatase 127 H (45-117) U/L Troponin I < 0.015 (0-0.045) ng/ml NT-Pro-B Natriuret Pep 4376 H (0-900) pg/ml Total Protein 6.6 (6.4-8.2) gm/dl Albumin 3.5 (3.4-5.0) gm/dl Globulin 3.1 (2.5-4.0) gm/dl Albumin/Globulin Ratio 1.1 (0.9-2) Lipase 205 (73-393) U/L Imaging Data Radiologist's Impression: Radiology results as stated below per my review and the radiologist's interpretation: XR chest 1V portable CLINICAL HISTORY: Chest Pain dyspnea COMPARISON STUDY: 01/04/2019 FINDINGS: Moderate cardiomegaly. Permanent bipolar cardiac pacemaker. Lungs are clear. Diminished pulmonary vasculature compared to the prior study. IMPRESSION: Cardiomegaly. Otherwise negative study. The above report was generated using voice recognition software. It may contain grammatical, syntax or spelling errors. Electronically signed by: Armen Fierro M.D. 01/20/2019 4:07 PM ECG Data Attestation: I personally reviewed and interpreted this ECG as follows: Indication: chest pain Rate (beats per minute): 70 Rhythm: other (ventricularly paced) Findings: no PAC, no PVC, no acute ischemic change and no ectopy Comparison ECG Date: from (01/03/19) Change: no significant change Blood Pressure Blood Pressure Findings: Normal blood pressure MDM Narrative This patient comes in as described above. He was placed in room B7. He is here for treatment and evaluation of chest pain. He does have a history of CHF and COPD. He had chest pain earlier today he got nitroglycerin he is now feeling better. He does not typically get chest pain. He said no recent change in his medication. [place] He does have some peripheral edema which is not significantly worse than baseline. He is on baseline oxygen. IV access established EKG and multiple blood testing was obtained as well as chest x-ray. His EKG shows a paced rhythm but no definite ischemic changes. Chest x-ray shows cardiomegaly without overt CHF. He does have renal insufficiency with a creatinine of 2.5 which is worse than last time however it has been worse in the past. This may be related to hydration and diuretic use. Besides this he does not have any electrolyte or metabolic abnormality. His initial troponin is negative. Given his complex history and chest pain I do think he needs to be admitted/observed for further treatment and a cardiac evaluation. Impression & Plan Precordial chest pain, COPD (chronic obstructive pulmonary disease), Chronic kidney disease, Anticoagulant long-term use, Pacemaker Discharge Plan Visit Data *Final* Discharge Date/Time: 01/20/19 19:30 Chief Complaint: Chest Pain ED Provider: Sean Hernandez Discharge Problem: Precordial chest pain, COPD (chronic obstructive pulmonary disease), Chronic kidney disease, Anticoagulant long-term use, Pacemaker Patient Disposition: Admitted As Inpatient Discharge Instructions Interventions: ED Discharge Assessment Last Done: 01/20/19 19:30 The scribe's documentation has been prepared under my direction and personally reviewed by me in its entirety. I confirm that the note above accurately reflects all work, treatment, procedures, and medical decision making performed by me.
[2019-01-20 16:54] LABS: Albumin Globulin Ratio 1.1 (0.9-2); Alkaline Phosphatase 127 U/L (45-117); Bilirubin,Total 0.5 mg/dl (0.2-1); Globulin 3.1 gm/dl (2.5-4.0); NT Pro B Type Natriuretic Pept 4376 pg/ml (0-900); Total Protein 6.6 gm/dl (6.4-8.2); Troponin I < 0.015 ng/ml (0-0.045)
--- NOTE | 2019-01-20 18:46 | History & Physical Report ---
Date of Service January 20, 2019 Assessment & Plan (1) COPD (chronic obstructive pulmonary disease): Rick Pierce is a 68 year old man with a complicated past medical history detailed above and current CANDACE, chest congestion and edema Chest congestion Mild, intermittent cough, no shortness of breath no fever Does not appear to be pneumonia, no white count, no evidence on CXR, no fevers chills or other clinical signs. Possibly due to viral infection superimposed on COPD, no dyspnea, no increased O2 demand. Possibly secondary to fluid overload, does not appear to have any pulmonary edema on CXR, though he is edematous and 6 kg up from previous baseline weight 2 weeks ago. Continue to monitor CANDACE Patient with creatinine of 2.5 elevated from 1.7 on discharge 2 weeks ago On large lasix dose, likely pre renal will hold lasix and follow daily prp's No change in urine volume per patient. COPD Continue supplemental Oxygen and breathing treatments On home O2 requirement currently CHF BNP elevated at approximately 4500 but lower than any previous presentation 6 kg over previous discharge weight Eating some salty fair food Has been taking his lasix 120 mg daily No shortnes of breath no evidence of pulmonary edema on CXR at this time Will hold lasix for CANDACE for now but closely monitor Strict I's and O's limit sodium intake to 1500 mg CAD [facility]s with [facility] [place] for [facility]ology, he tells me no history of heart attacks but he does have history of stent placement Not sure when cath was or when last stress test was. No exertional symptoms at this time, no chest pain, no tropoinin elevations Will defer further CAD workup at this time. Atrial Fibrillation Paroxysmal, currently sinus rhythm. Supposedly had pacemaker placement for his atrial fibrillation per our records though that doesn't make sense. Can request records from [facility] if needed. Continue eliquis and metoprolol for anticoagulation and rate control Hypertension Will continue home medications Type II Diabetes Holding glipizide and palcing patient on sliding scale Gout Continuing allopurinol HIstory of CVA Continuing atorvastatin 80 mg and ASA 81 F/E/N: Heart healthy low sodiuim diet DVT PPx: On eliquis Disposition: PCU tele (2) Gout: (3) Dyspnea: (4) Chronic kidney disease: (5) Anemia: (6) Recurrent UTI: (7) Type 2 diabetes mellitus without complication: (8) Morbid obesity: (9) Essential hypertension: (10) CAD (coronary artery disease), [place] coronary artery: (11) Acute on chronic renal insufficiency: (12) Sleep apnea: (13) Atrial fibrillation: (14) Cancer: (15) Presence of urostomy: History of Present Illness Chief Complaint: Chest Congestion Primary Care Provider: Sean Titus Rick Pierce is a 68 year old man with an unfortunate past medical history significant for CHF (Last ejection fraction on record showing EF 50-55% a little less than one year ago), COPD (On 2-3L home Oxygen, no PFT's on file), Paroxysmal Atrial Fibrillation (On eliquis for anticoagulation and metoprolol for rate control; follows with [facility]), CAD (Status post stents though he denies to me any heart attacks in the past), Permanent Pacemaker placement (Follows with [facility] in [place] for Cardiology), Type II diabetes (On glipizide, does not use insulin), Bladder Cancer (With current urostomy and recurrent UTI's), HTN (On hydralazine, amlodipine, metoprolol and lasix 120 mg), HLD, history of multiple TIA's (On high dose atorvastatin), CKD III, MJ, and Gout. He presents today for feeling like he has congestion in his chest. He reports the sensation as phlegm in lungs that he can't cough up. He has a cough and it is mildly productive but does not satisfy his symptom. He does not endorse any chest pain, shortness of breath, exertional symptoms, Increasing O2 requirements, Lightheadedness, palpitations or any other concerning cardiopulmonary symptoms. He has noticed some swelling of his upper and lower extremities. [place] and he has been eating some fair food including a milkshake and a hoagie in last two days. He is taking his lasix as scheduled 120 mg total per day. He was recently admitted for a CHF exacerbation after being hospitalized in [place] for a TIA where he was told to hold his lasix indefinitely moving forward on discharge due to impaired GFR compared to baseline. He became progressively more short of breath and edematous and presented to [facility] on 01/04/19 for CHF exacerbation and was discharged on 01/05 back on 120 mg daily of lasix. On presentation to the emergency department he was found to have stable vital signs, no elevated white count or signs of infection clinically, an CANDACE with creatinine of 2.53 as compared to his discharge creatinine of 1.76 on previous admission. He was also found to have a BNP of 4376, much lower than any of his previous admissions in last year. Troponin negative, Chest X ray showing no evidence of pulmonary congestion, just cardiomegaly. Of note patient is 6 kg heavier than he was on discharge of previous admission on 01/05/19 Patient lives at home with his in [facility], but is currently staying in his camper at [facility] He is a former smoker with 28 pack year smoking history though he tells me he quit 40 glenroy years ago (14 years at 2 packs a day) No other illicit substance use. Allergies Allergy/AdvReac Type Severity Reaction Status Date / Time codeine AdvReac Mild "trips me Verified 01/20/19 16:50 out" promethazine AdvReac Unknown UNCONTROLLED Verified 01/20/19 16:50 MUSCLE MOVEMENTS Home Medications Home Medications Medication Instructions Recorded Confirmed Type Symbicort 1 puff INHALATION BID 02/05/18 01/20/19 History allopurinol 300 mg PO QAM 02/05/18 01/20/19 History aspirin [Aspir-81] 81 mg PO QAM 02/05/18 01/20/19 History atorvastatin 80 mg PO QPM 02/05/18 01/20/19 History buspirone 20 mg PO BID 02/05/18 01/20/19 History furosemide 80 mg PO QAM 02/05/18 01/20/19 History glipizide 10 mg PO QAM 02/05/18 01/20/19 History ipratropium-albuterol 3 ml INHALATION QID PRN 02/05/18 01/20/19 History loratadine [Claritin] 10 mg PO QAM 02/05/18 01/20/19 History melatonin 10 mg PO HS 02/05/18 01/20/19 History nitroglycerin 0.3 mg SUBLINGUAL DIRECTED PRN 02/05/18 01/20/19 History pantoprazole 40 mg PO QAM 02/05/18 01/20/19 History PreserVision AREDS-2 1 tab PO QAM 02/16/18 01/20/19 History acetaminophen [Tylenol Extra 1,000 mg PO DIRECTED PRN 02/16/18 01/20/19 History Strength] cholecalciferol (vitamin D3) 1,000 unit PO QAM 02/16/18 01/20/19 History [Vitamin D3] clonazepam [Klonopin] 0.5 mg PO DAILY PRN 02/16/18 01/20/19 History cyanocobalamin (vitamin B-12) 2,500 mcg PO QAM 02/16/18 01/20/19 History [Vitamin B-12] paroxetine HCl [Paxil CR] 50 mg PO HS 02/16/18 01/20/19 History trazodone 150 mg PO HS 02/16/18 01/20/19 History metoprolol tartrate 100 mg PO BID #60 tab 02/19/18 01/20/19 Rx hydralazine 25 mg PO TID 05/15/18 01/20/19 History Spiriva with HandiHaler 1 cap INH QAM 09/28/18 01/20/19 History potassium chloride 10 meq PO QAM 09/28/18 01/20/19 History thiamine HCl (vitamin B1) 100 mg 100 mg PO .TAKE 1 TABLET DAILY 12/22/18 01/20/19 History tablet tab Eliquis 5 mg PO BID 01/04/19 01/20/19 History amlodipine 10 mg PO DAILY 01/04/19 01/20/19 History furosemide [Lasix] 40 mg PO HS 01/04/19 01/20/19 History Past Med/Surg History Medical History Type 2 diabetes mellitus without complication Recurrent UTI Paroxysmal atrial fibrillation Morbid obesity Essential hypertension CKD (chronic kidney disease), stage III CAD (coronary artery disease), [place] coronary artery Acute on chronic renal insufficiency Chronic obstructive pulmonary disease (Chronic) Sleep apnea (Chronic) CPAP Congestive heart failure (Resolved) Hyperlipidemia (Chronic) Hypertension (Chronic) Atrial fibrillation (Chronic) Pacemaker (Chronic) 2011 IMPLANTED FOR A-FIB Stroke (Resolved) CT SCAN NOVEMBER 2017 SHOWED EVIDENCE OF AN OLD STROKE ? EXACT DATE NOVEMBER 2017 SLURRED SPEECH/LEFT FOOT WEAKNESS CURRENTLY STILL HAS WEAKNESS IN LEFT SIDE/REHAB AFTER HOSPITALIZATION AWAITING TO HEAR BACK FOR GI OFFICE IF SURGEON OK WITH PT REMAINING ON BLOOD THINNER. Transient ischemic attack (TIA) (Resolved) Anxiety (Chronic) Depression (Chronic) Post traumatic stress disorder (Chronic) Macular degeneration (Chronic) Cancer (Resolved) BLADDER PROSTATE GERD (gastroesophageal reflux disease) (Chronic) Hiatal hernia (Chronic) Chronic kidney disease (Chronic) STAGE ? Osteoarthritis (Chronic) Gout (Chronic) Chronic back pain (Chronic) Peripheral neuropathy (Chronic) Diabetes mellitus, type 2 (Chronic) Coronary arteriosclerosis (Chronic) Depression with anxiety (Chronic) stable-continue Paxil and trazodone Thiamine deficiency (Chronic) Acute exacerbation of chronic obstructive pulmonary disease (COPD) (Resolved) Acute respiratory failure with hypoxia (Resolved) Cardiac pacemaker in situ (Resolved) Diabetes mellitus with hyperglycemia, without long-term current use of insulin (Resolved) increase insulin sliding scale and added Lantus 10 units daily -check HgbA1C HTN (hypertension), benign (Resolved) MJ on CPAP (Resolved) Paroxysmal atrial fibrillation (Resolved) Acute kidney injury Acute on chronic diastolic (congestive) heart failure Constipation Gout continue allopurinol for prophylaxis History of CVA (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 Hypomagnesemia Peripheral edema Surgical History History of cardiac cath (Resolved) STENT PLACED 2011 History of heart artery stent (Resolved) History of cataract surgery (Resolved) RT/LEFT History of tooth extraction (Resolved) History of cholecystectomy (Resolved) History of prostatectomy (Resolved) History of biopsy of bladder (Resolved) Presence of urostomy (Chronic) BLADDER REMOVED D/T CANCER STOMA REVISED History of laminectomy (Resolved) LUMBAR Pericardial disease (Resolved) PERICARDIAL WINDOW/MICROSCOPIC ([facility]) 2014 History of urostomy Family History Other Family history non-contributory Social History Preferred Language: Thai Communication Ability: Effective Window Trimmer Required: No Beliefs That Will Affect Care: None marital status: Current Living Situation: Spouse Current Living Situation Comment: pt and his live with their dtr current occupational status: retired Other Information That Helps Us Care for You: No Feels Safe at Home: Yes Safety Concerns: Feels Safe At This Time Smoking Status: Never smoker Second Hand Exposure: No ; Hx Alcohol Use: No Hx Substance Use: No Review of Systems Constitutional: + weight gain; no fever, no sweats and no body aches Eyes: no problem reported Ear, Nose, Mouth, Throat: no problem reported Respiratory: + cough; no change in sputum, no dyspnea, no dyspnea on exertion and no wheezing Cardiovascular: no chest pain, no chest pain at rest, no radiating jaw, neck or arm pain, no dyspnea on exertion, no palpitations, no lightheadedness and no syncope Gastrointestinal: no abdominal pain, no nausea, no vomiting, no constipation and no diarrhea/loose stools Physical Exam Constitutional: + morbidly obese, + frail appearing, cooperative, comfortable and + edematous; no acute distress and no altered mental status Eyes: PERRL, conjunctivae normal, anicteric sclerae ENMT: external ear and nose normal, oropharynx normal Respiratory: normal respiratory effort Auscultation: + rhonchi; no crackles and no wheezes Cardiovascular: Rate/Rhythm: regular rate and regular rhythm Heart Sounds: normal S1 and normal S2; no click, no gallop, no murmur and no cardiac rub Extremities: + edema (Upper and Lower extremity) Gastrointestinal (Abdomen): normal bowel sounds, soft, nontender, no hepato splenomegaly Skin: ecchymosis on bilateral upper extermity, prominently over dorsum of left hand Neurologic: PERRL, EOMI, accommodation nl, no face palsy, no dysarthria (Some difficulty fully opening left uppper eyelid, patient tells me chronic) Genitourinary: Urostomy in place, draining well, no issues currently Results & Data Vital Signs (Past 12 Hours) Vital Signs Temp Pulse Pulse Resp BP BP Pulse Ox 01/20/19 17:57 60 20 140/74 96 01/20/19 17:30 60 15 140/74 97 01/20/19 17:20 60 17 98 01/20/19 17:10 62 13 97 01/20/19 17:00 61 18 140/61 99 01/20/19 16:50 60 17 99 01/20/19 16:40 66 14 98 01/20/19 16:36 60 14 146/67 H 98 01/20/19 16:30 60 13 146/67 H 98 01/20/19 16:20 68 18 97 01/20/19 16:10 64 21 94 01/20/19 16:00 60 18 131/65 98 01/20/19 15:50 60 19 96 01/20/19 15:40 60 18 97 01/20/19 15:33 63 20 94 01/20/19 15:32 36.5 C 67 26 H 134/64 97 01/20/19 15:30 62 15 134/63 96 Supervising Physician Co-Signing Physician Notes I supervised Oscar Daugherty on this patient's care. I examined the patient on 01/20/2019 independently of him. I discussed the plan of care with her with the plan being as written in her note except for any following changes/exceptions: None. 68yo M w/ hx of CAD and CHF, recently admitted, then [facility] the [facility]. This afternoon was at the [facility] and developed chest pressure, with a sensation of feeling like he had to cough, but couldn't get phlegm up. At present, he denies any chest pressure. Weight is stable from prior discharge; however, his Cr is up from prior. Will admit under obs for his CANDACE and monitor Cr. PG Care Time/CCT Total # of Minutes Spent Total Time Spent with Patient: Total time spent is greater than 50% in coordination of care (as documented) at patient's floor/unit and/or counseling patient: Resident Activity Tracking Resident Involvement: Resident Care Provided Care Provided: Adult Hospital Medicine (1) Anemia Anemia type: unspecified type Qualified Code(s): D64.9 - Anemia, unspecified (2) Dyspnea Dyspnea type: unspecified Qualified Code(s): R06.00 - Dyspnea, unspecified (3) Chronic kidney disease Chronic kidney disease stage: unspecified stage Qualified Code(s): N18.9 - Chronic kidney disease, unspecified (4) COPD (chronic obstructive pulmonary disease) COPD type: unspecified COPD Qualified Code(s): J44.9 - Chronic obstructive pulmonary disease, unspecified
[2019-01-20] MEDS ORDERED: GLUCOSE 10 TABS/TUBE PO PRN (19:48)
[2019-01-20] MEDS ORDERED: GLUCAGON FOR INJ 1 MG VIAL SQ PRN (19:48)
[2019-01-20] MEDS ORDERED: clonazePAM 0.5 MG TAB PO PRN (19:48)
[2019-01-20] MEDS ORDERED: NITROGLYCERIN SL 0.4 MG/TAB TAB SL PRN (19:48)
[2019-01-20] MEDS ORDERED: NITROGLYCERIN 0.3 MG/1 TAB 100 TAB BTL SL PRN (19:48)
[2019-01-20] MEDS ORDERED: GLUCOSE 40% GEL 15 GM TUBE PO PRN (19:48)
[2019-01-20] MEDS ORDERED: DC ALL PREVIOUSLY ORDERED DIABETES MEDS ONE (19:48)
[2019-01-20] MEDS ORDERED: CARBOHYDRATES FOR HYPOGLYCEMIA PO PRN (19:48)
[2019-01-20] MEDS ORDERED: POLYETHYLENE (MIRALAX) 17 GM PACK PO PRN (19:48)
[2019-01-20] MEDS ORDERED: DEXTROSE 50% 50 ML SYRINGE IV PRN (19:48)
[2019-01-20] MEDS ORDERED: ACETAMINOPHEN 325 MG TAB PO PRN (19:48)
[2019-01-20] MEDS ORDERED: ACETAMINOPHEN 500 MG TAB PO PRN (19:48)
[2019-01-20] MEDS ORDERED: ALBUT/IPRATROP 3MG/0.5MG NEB 3 ML VIAL INH PRN (19:48)
[2019-01-20] MEDS: METOPROLOL TARTRATE 100 MG TAB PO SCH (20:51)
[2019-01-20] MEDS: APIXABAN 5 MG TABLET PO SCH (20:52)
[2019-01-20] MEDS: BUDESONIDE/FORMOTEROL FUMARATE 80/4.5 60 PUFFS/INHALER INH SCH (20:53)
[2019-01-20] MEDS: INSULIN ASPART 100 UNITS/ML 3 ML PEN SC SCH (20:54)
[2019-01-20] MEDS ORDERED: ATORVASTATIN 40 MG TAB PO SCH (21:00)
[2019-01-20] MEDS ORDERED: PARoxetine HCl CONTROLLED REL 12.5 MG TABCR PO SCH (21:00)
[2019-01-20] MEDS ORDERED: TRAZODONE HCL 50 MG TAB PO SCH (21:00)
[2019-01-21 07:03] LABS: BUN Creatinine Ratio 20.3 (10-20); Calcium 7.8 mg/dl (8.5-10.1); Creatinine Clr Calc Pharmacy 36.1 ml/min; Est GFR (African American) 29.8; Est GFR (Non-African American) 25.7; Potassium 4.2 mmol/L (3.5-5.1)
--- NOTE | 2019-01-21 07:32 | XRay Report ---
XR chest 1V portable CLINICAL HISTORY: CHF COMPARISON STUDY: 01/20/2019 FINDINGS: The heart remains enlarged. There is a left subclavian dual-chamber central venous pacemake r present. There is no focal pulmonary consolidation. There are no pleural effusions. There is mild c entral vascular prominence without evidence of overt failure.[ IMPRESSION: Cardiomegaly. No evidence of focal pulmonary consolidation Electronically signed by: Rafa Durant M.D. 01/21/2019 7:31 AM
[2019-01-21] MEDS: METOPROLOL TARTRATE 100 MG TAB PO SCH (08:02)
[2019-01-21] MEDS: INSULIN ASPART 100 UNITS/ML 3 ML PEN SC SCH ×2 (08:02→12:12)
[2019-01-21] MEDS: APIXABAN 5 MG TABLET PO SCH (08:03)
[2019-01-21] MEDS: BUDESONIDE/FORMOTEROL FUMARATE 80/4.5 60 PUFFS/INHALER INH SCH (08:04)
[2019-01-21] MEDS ORDERED: TIOTROPIUM BROMIDE 5 PUFF/90 MCG INH INH SCH (09:00)
[2019-01-21] MEDS ORDERED: CYANOCOBALAMIN (VITAMIN B-12) 2,500 MCG TAB.SUBL SL SCH (09:00)
[2019-01-21] MEDS ORDERED: THIAMINE HCL 100 MG TAB PO SCH (09:00)
[2019-01-21] MEDS ORDERED: POTASSIUM CHLORIDE 10 MEQ TABCR PO SCH (09:00)
[2019-01-21] MEDS ORDERED: LORATADINE 10 MG TAB PO SCH (09:00)
[2019-01-21] MEDS ORDERED: ASPIRIN 81 MG ECTAB PO SCH (09:00)
[2019-01-21] MEDS ORDERED: PANTOprazole 40 MG TAB PO SCH (09:00)
[2019-01-21] MEDS ORDERED: CEROVITE ADV FORMULA TAB PO SCH (09:00)
[2019-01-21] MEDS ORDERED: CHOLECALCIFEROL 1,000 UNITS TAB PO SCH (09:00)
[2019-01-21] MEDS ORDERED: ALLOPURINOL 300 MG TAB PO SCH (09:00)
[2019-01-21] MEDS ORDERED: AMLODIPINE BESYLATE 5 MG TAB PO SCH (09:00)
--- NOTE | 2019-01-21 11:26 | Nephrology Consultation ---
Date of Consultation January 21, 2019 Assessment & Plan (1) CANDACE (acute kidney injury): [age]-year-old gentlemen with history of CHF with well preserved EF, requirement of high dose diuretics chronically, admitted to the hospital with volume overload and acute kidney injury. Has history of stage III CKD most likely secondary to cardiorenal syndrome, baseline creatinine quite variable from 1.8-2 with history of recurrent acute kidney injury. On admission creatinine was 2.5 which is id staying relatively stable, electrolyte acceptable. Volume status seems to have improve significantly and weight close to his baseline although he did not receive any diuretics since admission and has been having decent urine output. --would continue to hold diuretics for now as his volume status clearly improved and his weight is at his baseline --monitor renal function and electrolyte, considering underlying CKD and repeated history of acute kidney injury he definitely has risk for progressive worsening of renal function in future --limit salt in diet --once renal function stabilizes, he should be on CIERRA-inhibitor/ARB however will defer it to his primary buffer chrome, he should have a follow-up within few weeks after discharge Will follow Thank you for allowing me to participate in your patient's care. It was a pleasure to see Rick (2) CKD (chronic kidney disease), stage III: (3) CHF (congestive heart failure): (4) COPD (chronic obstructive pulmonary disease): (5) Essential hypertension: (6) Presence of urostomy: (7) Hypertension: History of Present Illness Reason for Consultation: Acute kidney injury with history of chronic kidney disease, management of volume status with history of CHF and need for chronic diuretic therapy. Attending Physician: Lemuel Rizo MD History of Present Illness Rick lugo is 5-year-old gentlemen with past medical history significant for stage III CKD with recurrent history of AK I, hypertension, diabetes, CHF, COPD and AFib admitted to the hospital with chest congestion and concern for volume overload. On admission he was found to have acute kidney injury. Nephrology consult was requested for management of acute kidney injury with history of CKD and volume management. Electronic medical records including labs and imaging are reviewed in detail during patient's visit. Rick has history of CHF with preserved EF, has been on Lasix 120 mg daily at home. Has frequent hospital admission for volume overload last admission was from 01/04/2019 to 01/05/2019. He was also recently admitted to all 2 now [facility] and on discharge his diuretics was discontinued and eventually he became volume overloaded then came to the hospital on 01/04. On discharge he was restarted back on Lasix which has been taking regularly at home. Over last to 3 days he has been at a camper at [facility] and has been eating fair food. Yesterday he presented to the hospital as he was having some shortness of breath and he noticed significant edema of upper and lower extremity as well as almost 10 lb weight gain. On admission he was 131.7 kg ( baseline weight seems to be around 124-125 kg). He did not receive any diuretics since admission however his weight dropped to 125 kg this morning and he reports having significant urine output would even without the diuretics. Lab showed acute kidney injury, creatinine 2.5 which stayed relatively stable on repeat lab this morning. Baseline creatinine has been quite variable around 1.8-2 with history of recurrent acute kidney injury. He seems to be volume sensitive and developed acute kidney injury repeatedly when he was admitted to the hospital with volume overload and received high dose diuretics. Prior urinalysis showed no significant proteinuria, hematuria. No renal ultrasound available. He follows with [facility] in [place]. Past medical history significant for CHF , EF 50-55% , COPD on 2L home O2, Paroxysmal A Fib, on eliquis, CAD s/p stents, Pacemaker placement, DM, Bladder Cancer s/p urostomy and recurrent UTI's, HTN ,HLD, h/o multiple TIA's (On high dose atorvastatin), CKD III, MJ, and Gout. Allergies Allergy/AdvReac Type Severity Reaction Status Date / Time codeine AdvReac Mild "trips me Verified 01/20/19 16:50 out" promethazine AdvReac Unknown UNCONTROLLED Verified 01/20/19 16:50 MUSCLE MOVEMENTS Home Medications Home Medications Medication Instructions Recorded Confirmed Type Symbicort 1 puff INHALATION BID 02/05/18 01/20/19 History allopurinol 300 mg PO QAM 02/05/18 01/20/19 History aspirin [Aspir-81] 81 mg PO QAM 02/05/18 01/20/19 History atorvastatin 80 mg PO QPM 02/05/18 01/20/19 History buspirone 20 mg PO BID 02/05/18 01/20/19 History furosemide 80 mg PO QAM 02/05/18 01/20/19 History glipizide 10 mg PO QAM 02/05/18 01/20/19 History ipratropium-albuterol 3 ml INHALATION QID PRN 02/05/18 01/20/19 History loratadine [Claritin] 10 mg PO QAM 02/05/18 01/20/19 History melatonin 10 mg PO HS 02/05/18 01/20/19 History nitroglycerin 0.3 mg SUBLINGUAL DIRECTED PRN 02/05/18 01/20/19 History pantoprazole 40 mg PO QAM 02/05/18 01/20/19 History PreserVision AREDS-2 1 tab PO QAM 02/16/18 01/20/19 History acetaminophen [Tylenol Extra 1,000 mg PO DIRECTED PRN 02/16/18 01/20/19 History Strength] cholecalciferol (vitamin D3) 1,000 unit PO QAM 02/16/18 01/20/19 History [Vitamin D3] clonazepam [Klonopin] 0.5 mg PO DAILY PRN 02/16/18 01/20/19 History cyanocobalamin (vitamin B-12) 2,500 mcg PO QAM 02/16/18 01/20/19 History [Vitamin B-12] paroxetine HCl [Paxil CR] 50 mg PO HS 02/16/18 01/20/19 History trazodone 150 mg PO 02/16/18 01/20/19 History metoprolol tartrate 100 mg PO BID #60 tab 02/19/18 01/20/19 Rx hydralazine 25 mg PO TID 05/15/18 01/20/19 History Spiriva with HandiHaler 1 cap [facility]H [facility] 09/28/18 01/20/19 History potassium chloride 10 meq PO QA 09/28/18 01/20/19 History thiamine HCl (vitamin B1) 100 mg 100 mg PO .TAKE 1 TABLET DAILY 12/22/18 01/20/19 History tablet tab Eliquis 5 mg PO BID 01/04/19 01/20/19 History amlodipine 10 mg PO DAILY 01/04/19 01/20/19 History furosemide [Lasix] 40 mg PO HS 01/04/19 01/20/19 History Patient History Medical History Type 2 diabetes mellitus without complication Recurrent UTI Paroxysmal atrial fibrillation Morbid obesity Essential hypertension CKD (chronic kidney disease), stage III CAD (coronary artery disease), [place] coronary artery Acute on chronic renal insufficiency Chronic obstructive pulmonary disease (Chronic) Sleep apnea (Chronic) CPAP Congestive heart failure (Resolved) Hyperlipidemia (Chronic) Hypertension (Chronic) Atrial fibrillation (Chronic) Pacemaker (Chronic) 2011 IMPLANTED FOR A-FIB Stroke (Resolved) CT SCAN NOVEMBER 2017 SHOWED EVIDENCE OF AN OLD STROKE ? EXACT DATE NOVEMBER 2017 SLURRED SPEECH/LEFT FOOT WEAKNESS CURRENTLY STILL HAS WEAKNESS IN LEFT SIDE/REHAB AFTER HOSPITALIZATION AWAITING TO HEAR BACK FOR GI OFFICE IF SURGEON OK WITH PT REMAINING ON BLOOD THINNER. Transient ischemic attack (TIA) (Resolved) Anxiety (Chronic) Depression (Chronic) Post traumatic stress disorder (Chronic) Macular degeneration (Chronic) Cancer (Resolved) BLADDER PROSTATE GERD (gastroesophageal reflux disease) (Chronic) Hiatal hernia (Chronic) Chronic kidney disease (Chronic) STAGE ? Osteoarthritis (Chronic) Gout (Chronic) Chronic back pain (Chronic) Peripheral neuropathy (Chronic) Diabetes mellitus, type 2 (Chronic) Coronary arteriosclerosis (Chronic) Depression with anxiety (Chronic) stable-continue Paxil and trazodone Thiamine deficiency (Chronic) Acute exacerbation of chronic obstructive pulmonary disease (COPD) (Resolved) Acute respiratory failure with hypoxia (Resolved) Cardiac pacemaker in situ (Resolved) Diabetes mellitus with hyperglycemia, without long-term current use of insulin (Resolved) increase insulin sliding scale and added Lantus 10 units daily -check HgbA1C HTN (hypertension), benign (Resolved) MJ on CPAP (Resolved) Paroxysmal atrial fibrillation (Resolved) Acute kidney injury Acute on chronic diastolic (congestive) heart failure Constipation Gout continue allopurinol for prophylaxis History of CVA (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 Hypomagnesemia Peripheral edema Surgical History History of cardiac cath (Resolved) STENT PLACED 2011 History of heart artery stent (Resolved) History of cataract surgery (Resolved) RT/LEFT History of tooth extraction (Resolved) History of cholecystectomy (Resolved) History of prostatectomy (Resolved) History of biopsy of bladder (Resolved) Presence of urostomy (Chronic) BLADDER REMOVED D/T CANCER STOMA REVISED History of laminectomy (Resolved) LUMBAR Pericardial disease (Resolved) PERICARDIAL WINDOW/MICROSCOPIC ([facility]) 2014 History of urostomy Family History Other Family history non-contributory Social History Preferred Language: Sudanese Communication 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: 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 HEENT: Atraumatic, normocephalic. NECK: Supple, no JVD, no carotid bruit appreciated. ENT: No sinus tenderness MOUTH and THROAT: Moist oral mucosa, RESPIRATORY: Normal breathing efforts, clear to auscultation bilaterally, no wheezes or rales. CARDIOVASCULAR: S1, S2 normal, rate rhythm regular. ABDOMEN: Soft, nontender, positive bowel sound. MUSCULOSKELETAL: No joint swelling, erythema or tenderness. Normal range of motion. SKIN: No skin rash EXTREMITY: b/l 1+ lower extremity edema NEURO: No gross focal neurological deficit, speech fluent. PSYCHIATRY: Normal mood and judgment Results & Data Vital Signs (Past 12 Hours) Vital Signs Temp Pulse Pulse Resp BP BP Pulse Ox 01/21/19 11:20 37.0 C 90 22 118/82 92 01/21/19 10:21 01/21/19 07:58 36.8 C 64 20 144/71 H 95 01/21/19 03:45 36.5 C 60 16 111/64 95 01/21/19 00:20 60 Pulse Ox Pulse Ox 01/21/19 11:20 01/21/19 10:21 96 94 01/21/19 07:58 01/21/19 03:45 01/21/19 00:20 PG Care Time/CCT Total # of Minutes Spent Total Time Spent with Patient: Total time spent is greater than 50% in coordination of care (as documented) at patient's floor/unit and/or counseling patient: (1) CHF (congestive heart failure) Heart failure chronicity: unspecified Heart failure type: unspecified Qualified Code(s): I50.9 - Heart failure, unspecified (2) COPD (chronic obstructive pulmonary disease) COPD type: unspecified COPD Qualified Code(s): J44.9 - Chronic obstructive pulmonary disease, unspecified
[2019-01-21] MEDS ORDERED: BISACODYL 10 MG SUPP PR ONE (13:56)
--- NOTE | 2019-01-21 14:22 | Discharge Summary ---
Date of Service January 21, 2019 Admission HPI Per Admitting Provider Rick Pierce is a 68 year old man with an unfortunate past medical history significant for CHF (Last ejection fraction on record showing EF 50-55% a little less than one year ago), COPD (On 2-3L home Oxygen, no PFT's on file), Paroxysmal Atrial Fibrillation (On eliquis for anticoagulation and metoprolol for rate control; follows with [place]), CAD (Status post stents though he denies to me any heart attacks in the past), Permanent Pacemaker placement (Follows with [place] in [place] for Cardiology), Type II diabetes (On glipizide, does not use insulin), Bladder Cancer (With current urostomy and recurrent UTI's), HTN (On hydralazine, amlodipine, metoprolol and lasix 120 mg), HLD, history of multiple TIA's (On high dose atorvastatin), CKD III, MJ, and Gout. He presents today for feeling like he has congestion in his chest. He reports the sensation as phlegm in lungs that he can't cough up. He has a cough and it is mildly productive but does not satisfy his symptom. He does not endorse any chest pain, shortness of breath, exertional symptoms, Increasing O2 requirements, Lightheadedness, palpitations or any other concerning cardiopulmonary symptoms. He has noticed some swelling of his upper and lower extremities. He tells me he has been at the [employer] staying in a camper and he has been eating some fair food including a milkshake and a hoagie in last two days. He is taking his lasix as scheduled 120 mg total per day. He was recently admitted for a CHF exacerbation after being hospitalized in [place] for a TIA where he was told to hold his lasix indefinitely moving forward on discharge due to impaired GFR compared to baseline. He became progressively more short of breath and edematous and presented to [facility] on 01/04/19 for CHF exacerbation and was discharged on 01/05 back on 120 mg daily of lasix. On presentation to the emergency department he was found to have stable vital signs, no elevated white count or signs of infection clinically, an CANDACE with creatinine of 2.53 as compared to his discharge creatinine of 1.76 on previous admission. He was also found to have a BNP of 4376, much lower than any of his previous admissions in last year. Troponin negative, Chest X ray showing no evidence of pulmonary congestion, just cardiomegaly. Of note patient is 6 kg heavier than he was on discharge of previous admission on 01/05/19 Patient lives at home with his in [facility], but is currently staying in his camper at [facility] He is a former smoker with 28 pack year smoking history though he tells me he quit 40 glenroy years ago (14 years at 2 packs a day) No other illicit substance use. Principal Diagnosis chest pain/pressure Discharge Exam Constitutional WD/WN, vitals as above Respiratory normal respiratory effort, lungs clear to auscultation Cardiovascular RRR, no murmur, no edema Gastrointestinal (Abdomen) Inspection/Auscultation: abdomen normal to inspection and normal bowel sounds; abdomen not distended Percussion/Palpation: abdomen soft; abdomen nontender Musculoskeletal no cyanosis or clubbing, extremities motor strength 5/5 Skin no rashes, warm and dry Neurologic moves all extremities and awake Psychiatric A+Ox3, euthymic affect Discharge Data Allergies Allergy/AdvReac Type Severity Reaction Status Date / Time codeine AdvReac Mild "trips me Verified 01/20/19 16:50 out" promethazine AdvReac Unknown UNCONTROLLED Verified 01/20/19 16:50 MUSCLE MOVEMENTS Consultations 01/20/19 19:48 Consult Case Management - Discharge Planning Routine 01/21/19 09:53 Consult Nephrology Routine Hospital Course (1) Chest pain: Mr. Pierce is somewhat unclear about his symptoms. He reports having central chest pressure that felt like he "needed to get some phlegm out" but that he was unable to bring anything up. At the beginning of our conversation he reported no chest pressure since admission but then later stated that he had been having it off and on since he got to the hospital. He is unable to associate any activity with this feeling. He is unable to tell me what made him feel he should come to the ED as his description is more that he felt he needed to cough deeply rather than a concern for chest pain. He denies any cough or recent illness or any sick contacts. Afebrile, no leukocytosis.He denies any radiation of pain. EKG was without acute changes today. Troponin was negative x2. CXR w/o acute changes or pulmonary edema x2. BNP is 4300 which is lower than it has been any previous admission. (2) Chronic kidney disease: Stage III With super imposed acute kidney injury. Creat was 2.5 on admission, 2.45 today - his creatinine appears to fluctuate between 1.6 to 2.2 in past admissions. Nephrology consulted with the following recommendations: -would continue to hold diuretics for now as his volume status clearly improved and his weight is at his baseline --monitor renal function and electrolyte, considering underlying CKD and repeated history of acute kidney injury he definitely has risk for progressive worsening of renal function in future --limit salt in diet --once renal function stabilizes, he should be on CIERRA-inhibitor/ARB however will defer it to his primary access rn, he should have a follow-up within few weeks after discharge (3) Congestive heart failure: takes 120 mg furosemide daily Previously had been taken off of Lasix after admission in [place] for TIA and then was admitted two weeks ago at [facility] for fluid overload/CHF exacerbation. As above, appears euvolemic, will hold lasix for kidney function. I discussed his case with Leslie Kim with the Heart Failure clinic. She will follow his labs and see him on Friday. He will hold his Lasix until Friday and then resume and have a prp on Friday (4) COPD (chronic obstructive pulmonary disease): does not appear to be in exacerbation, continue home regimen, on baseline O2 (5) Gout: continue allopurinol (6) Anemia: Chronic - hgb ranges 10 -12 Patient did have small amount of blood on his stool after recieving a suppostory for constipation x4 days - digital rectal exam revealed scant amount of bleeding, unable to appreciate any external hemorrhoids. Discussed when to call his pcp. He should follow up with his provider about constipation/ possible internal hemorrhoids (7) Type 2 diabetes mellitus without complication: held home glipizide inpatient and had ss - resume home regimen at discharge (8) Morbid obesity: (9) CAD (coronary artery disease), three [place] coronary artery: Has a history of stents, follows [place] for cardiology although in my discussion with the [place] it sounds like he has only done some telemedicine with a doctor once or twice but is not formally under cardiology's care Troponins trended and negative No acute changes on EKG (10) Atrial fibrillation: Atrial Fibrillation Paroxysmal, currently sinus rhythm. Continue eliquis and metoprolol for anticoagulation and rate control (11) HTN (hypertension): Continue home regimen, recommend adding CIERRA/ARB as above (12) History of stroke: continue atrovastatin, ASA Disp: PT recommends home, OT recommended rehab - discussed this with the patient and he does not wish to go to rehab and feels safe to go home. Total Time Total Time Spent Total Time Spent (In Minutes): greater than 30 minutes Discharge Plan Discharge Items Patient Disposition: Home - Self-Care Reason For Visit: CHEST CONGESTION,WEAKNESS Discharge Diagnosis: Chest pain Discharge Goals: Decrease discomfort Activity: Resume your previous activity Activity Comment: gradually as tolerated Non-emergency contact: Primary Care Provider Call non-emergency contact if: you have any medication questions and your symptoms worsen Follow-up/Referrals: Ammy Kim PA-C [[facility]] - 01/27/19 2:00 pm (Please, follow up at [facility] Cardiology Office / CHF Clinic with Leslie Kim PA-C on FridayJanuary 27 at 2:00 pm. *The office is located in [address] of [facility]. This is the big building next to this hospital (same place you see the kidney doctor). If you need to change this appointment, call the office at [phone].) Sean Titus [Primary Care Provider] - (Please, follow up with Dr. Ariela MORGAN. *A nurse from this office will call you with the appointment information. If you have any questions, call the office at [phone]. ) Diet: Low Sodium (2gm) Other Ambulatory Orders: Basic Metabolic Panel (Routine) Timeframe: 20190125 Location: Determined by Patient Ordered By: Laura Marquez Basic Metabolic Panel (Routine) Timeframe: 20190121 Location: Determined by Patient Ordered By: Laura Marquez Addtl Provider Instructions: Please hold your furosemide tomorrow and restart on Friday. You will need to have blood work done on Friday. The results will go to Ammy Kim at the [facility] Heart Failure clinic. She will get in touch with you with any changes that might be needed concerning your furosemide. Concerning blood streaking on your stool - this is likely due to some hemorrhoids made worse by constipation. However, if you notice more than a small amount of blood streaking when you have a bowel movement you need to notify your doctor. Please follow up about this at your next appointment. Make sure you eat foods with plenty of fiber. You could also try over the counter stool softeners. Prescriptions: Continued thiamine HCl (vitamin B1) 100 mg tablet 100 mg PO .TAKE 1 TABLET DAILY RF: 0 furosemide 40 mg Tablet 80 mg PO QAM RF: 0 atorvastatin 80 mg Tablet 80 mg PO QPM RF: 0 ipratropium-albuterol 0.5 mg-3 mg(2.5 mg base)/3 mL Solution For Nebulization 3 ml INHALATION QID PRN (Reason: Shortness Of Breath) RF: 0 nitroglycerin 0.3 mg Tablet, Sublingual 0.3 mg Sublingual DIRECTED PRN (Reason: Chest Pain) RF: 0 aspirin [Aspir-81] 81 mg Tablet,Delayed Release (Dr/Ec) 81 mg PO QAM RF: 0 pantoprazole 40 mg Tablet,Delayed Release (Dr/Ec) 40 mg PO QAM RF: 0 buspirone 10 mg Tablet 20 mg PO BID RF: 0 allopurinol 300 mg Tablet 300 mg PO QAM RF: 0 loratadine [Claritin] 10 mg Tablet 10 mg PO QAM RF: 0 glipizide 5 mg Tablet 10 mg PO QAM RF: 0 Symbicort 80-4.5 mcg/actuation Hfa Aerosol Inhaler 1 puff INHALATION BID RF: 0 melatonin 10 mg Tablet 10 mg PO HS RF: 0 clonazepam [Klonopin] 1 mg Tablet 0.5 mg PO DAILY PRN (Reason: anxiety) RF: 0 cyanocobalamin (vitamin B-12) [Vitamin B-12] 1,000 mcg Tablet 2,500 mcg PO QAM RF: 0 acetaminophen [Tylenol Extra Strength] 500 mg Tablet 1,000 mg PO DIRECTED PRN (Reason: Pain) RF: 0 trazodone 100 mg Tablet 150 mg PO HS RF: 0 paroxetine HCl [Paxil CR] 25 mg Tablet Extended Release 24 Hr 50 mg PO HS RF: 0 cholecalciferol (vitamin D3) [Vitamin D3] 1,000 unit Tablet 1,000 unit PO QAM RF: 0 PreserVision AREDS-2 [id number] Capsule 1 tab PO QAM RF: 0 metoprolol tartrate 100 mg tablet 100 mg PO BID Qty: 60 RF: 0 hydralazine 25 mg tablet 25 mg PO TID RF: 0 Eliquis 5 mg Tablet 5 mg PO BID RF: 0 furosemide [Lasix] 40 mg Tablet 40 mg PO HS RF: 0 amlodipine 10 mg Tablet 10 mg PO DAILY RF: 0 potassium chloride 10 mEq Tablet Extended Release 10 meq PO QAM RF: 0 Spiriva with HandiHaler 18 mcg capsule, w/inhalation device 1 cap INH QAM RF: 0 Stand-Alone Forms: Call Back Authorization, [facility] Discharge Orders: Discharge Order (Routine); Ordered 01/21/19 Ordered By: Laura Marquez Admission Data Admit Date/Time: 01/20/19 18:42 Attending Provider: Lemuel Rizo Admit Provider: Oscar Daugherty Primary Care Provider: Sean Titus Other Providers: Sarah Marion Service: Telemetry
== END 2019-01-21 17:36 | disposition home or self-care (01) ==
LOC: 2S 15:18 → ED 15:18 → 2S 19:30

== ENCOUNTER 2019-02-15 10:47 | Inpatient (IN) ==
[2019-02-15 12:05] LABS: Hematocrit (blood only) 30.6 % (42-52); Hemoglobin 9.9 g/dL (14.0-18.0); Immature Granulocytes # (auto) 0.03 K/uL (0.00-0.02); Immature Granulocytes % (auto) 0.3 %; Lymphocytes # (auto) 0.41 K/uL (1.2-3.4); Lymphocytes % (auto) 3.6 %; Mean Corpuscular Hemoglobin 31.8 pg (25-34); Mean Corpuscular Hgb Conc 32.4 g/dL (32-36); Mean Corpuscular Volume 98.4 fL (80-100); Mean Platelet Volume 11.2 fL (7.4-10.4); Monocytes # (auto) 0.16 K/uL (0.11-0.59); Monocytes % (auto) 1.4 %; Neutrophils # (auto) 10.86 K/uL (1.4-6.5); Neutrophils % (auto) 94.7 %; Platelet Count 164 K/uL (130-400); RDW Coefficient of Variation 16.3 % (11.5-14.5); RDW Standard Deviation 57.9 fL (36.4-46.3); Red Blood Count 3.11 M/uL (4.7-6.1); White Blood Count 11.46 K/uL (4.8-10.8)
[2019-02-15 12:08] LABS: Base Excess VBG -5.3 mEq/L; Oxygen Saturation VBG 82.2 %; pH VBG 7.27 (7.36-7.41)
[2019-02-15 12:15] LABS: INR 1.2 (0.9-1.1); Prothrombin Time 12.3 Seconds (9.0-12.0)
--- NOTE | 2019-02-15 12:16 | XRay Report ---
XR chest 1V portable CLINICAL HISTORY: weakness mental status change COMPARISON STUDY: 02/12/2019 FINDINGS: Stable heart and megaly. Prominent pulmonary vasculature. Prominence of pulmonary vasculatu re is slightly improved. Diaphragms are smooth. There is a permanent bipolar cardiac pacemaker. IMPRESSION: Slight improvement of the patient's congestive failure/pulmonary edema. The above report was generated using voice recognition software. It may contain grammatical, syntax or spelling errors. Electronically signed by: Armen Fierro M.D. 02/15/2019 12:14 PM
[2019-02-15 12:34] LABS: Alanine Aminotransferase 22 U/L (12-78); Albumin Globulin Ratio 1.1 (0.9-2); Albumin Level 3.8 gm/dl (3.4-5.0); Alkaline Phosphatase 112 U/L (45-117); Aspartate Aminotransferase 13 U/L (15-37); BUN Creatinine Ratio 22.6 (10-20); Bilirubin,Total 0.4 mg/dl (0.2-1); Blood Urea Nitrogen 108 mg/dl (7-18); Calcium 8.9 mg/dl (8.5-10.1); Carbon Dioxide 24 mmol/L (21-32); Chloride 102 mmol/L (98-107); Creatinine Clr Calc Pharmacy 19.3 ml/min; Est GFR (African American) 13.3; Est GFR (Non-African American) 11.5; Globulin 3.4 gm/dl (2.5-4.0); Glucose 218 mg/dl (70-99); Magnesium 2.2 mg/dl (1.8-2.4); NT Pro B Type Natriuretic Pept 9413 pg/ml (0-900); Sodium 134 mmol/L (136-145); Total Protein 7.2 gm/dl (6.4-8.2); Troponin I < 0.015 ng/ml (0-0.045)
[2019-02-15] MEDS ORDERED: CALCIUM GLUCONATE 10% 1,000 MG in SODIUM CHLORIDE 0.9% 50 ML IV STA (12:37)
[2019-02-15] MEDS ORDERED: NovoLIN-R INSULIN PER UNIT CHARGE IV STA (12:37)
[2019-02-15] MEDS ORDERED: DEXTROSE 50% 50 ML SYRINGE IV STA (12:37)
[2019-02-15] MEDS ORDERED: ALBUT/IPRATROP 3MG/0.5MG NEB 3 ML VIAL NEB STA (12:37)
--- NOTE | 2019-02-15 15:41 | History & Physical Report ---
Date of Service February 15, 2019 Assessment & Plan (1) Acute renal failure: Admit telemetry Creatinine 4.77 on admission with hyperkalemia Hold furosemide, lisinopril Consult nephrology - patient had appt to see Dr. Luong outpatient today (2) Acute hyperkalemia: Given dextrose and insulin in ED Will give po Kayexalate x 1 recheck prp this afternoon follow on heart monitor hold po potassium (3) COPD (chronic obstructive pulmonary disease): with recent exacerbation Continue doxycycline/prednisone regimen started in ED 02/13 (4) Paroxysmal atrial fibrillation: Continue apixaban, metoprolol (5) Type 2 diabetes mellitus without complication: hold home glipizide glycemic pharmacist consult (6) Congestive heart failure: Chronic diastolic heart failure BNP over 9,000 CXR showing slight improvement of the patient's congestive failure/pulmonary edema but congestion persists Lower extremity edema Hold diuretics as above for now, consulted nephrology for assistance on fluid balance (7) Hyperlipidemia: continue statin (8) Hypertension: continue metoprolol, amlodipine, hold lisinopril (9) Thiamine deficiency: continue thiamine supplementation (10) Depression: continue paroxetine, trazodone (11) Morbid obesity: diet and exercise counseling (12) Coronary artery disease: continue atrovastatin, asa, isosorbide (13) DVT prophylaxis: Apixaban, SCDs History of Present Illness Mr. Pierce presents today for confusion and weakness. His provides history as Mr. Pierce is unable to talk much due to breathing on the Bipap. She reports confusion started 2 weeks ago. Last week he lost control of his bowels at one point which is unlike him. He has been weak and unable to stand with more frequent falls which his describes as more of a slow descent to the ground without any head injuries. He has needed to be fed and cannot hold his own utensils. His confusion has been waxing and waning. He has gained about 15 pounds [facility] No fevers, no viral symptoms. No blood in stool or urostomy. He did decrease his lasix to 40 mg bid from 60 and 40 last week but then became fluid overloaded and presented to the ED where he was discharged back on his previous dose. Past medical history significant for CHF (Last ejection fraction on record showing EF 50-55% a little less than one year ago), COPD (On 2-3L home Oxygen, no PFT's on file), Paroxysmal Atrial Fibrillation (On eliquis for anticoagulation and metoprolol for rate control; follows with [facility]), CAD (Status post stents though he denies to me any heart attacks in the past), Permanent Pacemaker placement ([facility] [place] [facility]), Type II diabetes (On glipizide, does not use insulin), Bladder Cancer (With current urostomy and recurrent UTI's), HTN (On hydralazine, amlodipine, metoprolol and lasix 120 mg), HLD, history of multiple TIA's (On high dose atorvastatin), CKD III, MJ, and Gout. Primary Care Provider: Sean Titus Allergies Allergy/AdvReac Type Severity Reaction Status Date / Time codeine AdvReac Mild "trips me Verified 02/12/19 23:47 out" promethazine AdvReac Unknown UNCONTROLLED Verified 02/12/19 23:47 MUSCLE MOVEMENTS Home Medications Home Medications Medication Instructions Recorded Confirmed Type allopurinol 300 mg PO QAM 02/05/18 02/15/19 History aspirin [Aspir-81] 81 mg PO QAM 02/05/18 02/15/19 History atorvastatin 80 mg PO 02/05/18 02/15/19 History buspirone 20 mg PO BID 02/05/18 02/15/19 History furosemide 40 mg PO [facility] 02/05/18 02/15/19 History loratadine [Claritin] 10 mg PO QAM 02/05/18 02/15/19 History melatonin 10 mg PO 02/05/18 02/15/19 History nitroglycerin 0.3 mg SUBLINGUAL DIRECTED PRN 02/05/18 02/15/19 History pantoprazole 40 mg PO QAM 02/05/18 02/15/19 History PreserVision AREDS-2 1 tab PO QAM 02/16/18 02/15/19 History cholecalciferol (vitamin D3) 2,000 unit PO QAM 02/16/18 02/15/19 History [Vitamin D3] clonazepam [Klonopin] 0.5 mg PO DAILY PRN 02/16/18 02/15/19 History cyanocobalamin (vitamin B-12) 1,000 mcg PO QAM 02/16/18 02/15/19 History [Vitamin B-12] paroxetine HCl [Paxil CR] 45 mg PO HS 02/16/18 02/15/19 History trazodone 150 mg PO HS 02/16/18 02/15/19 History metoprolol tartrate 100 mg PO BID #60 tab 02/19/18 02/15/19 Rx hydralazine 25 mg PO TID 05/15/18 02/15/19 History potassium chloride 10 meq PO QAM 09/28/18 02/15/19 History thiamine HCl (vitamin B1) 100 mg 100 mg PO QAM tab 12/22/18 02/15/19 History tablet amlodipine 10 mg PO QAM 01/04/19 02/15/19 History albuterol sulfate 2 puff INHALATION Q4H PRN 02/12/19 02/15/19 History apixaban 5 mg PO BID 02/12/19 02/15/19 History budesonide-formoterol 2 puff INHALATION BID 02/12/19 02/15/19 History fluticasone propionate 1 spray INTRANASAL DAILY PRN 02/12/19 02/15/19 History gabapentin 600 mg PO BID 02/12/19 02/15/19 History hydrophilic cream 1 applic TOPICAL DAILY PRN 02/12/19 02/15/19 History isosorbide mononitrate 30 mg PO QAM 02/12/19 02/15/19 History lisinopril 2.5 mg PO QAM 02/12/19 02/15/19 History docusate sodium 100 mg PO DAILY PRN 02/13/19 02/15/19 History doxycycline hyclate 100 mg PO BID 5 Days #10 tab 02/13/19 02/15/19 Rx tiotropium bromide 1 cap INHALATION QAM 02/13/19 02/15/19 History glipizide 10 mg PO QAM 02/15/19 02/15/19 History prednisone 60 mg PO QAM 02/15/19 02/15/19 History Past Med/Surg History Medical History Type 2 diabetes mellitus without complication Recurrent UTI Paroxysmal atrial fibrillation Morbid obesity Essential hypertension CKD (chronic kidney disease), stage III CAD (coronary artery disease), [place] coronary artery Acute on chronic renal insufficiency Chronic obstructive pulmonary disease (Chronic) Sleep apnea (Chronic) CPAP Congestive heart failure (Resolved) Hyperlipidemia (Chronic) Hypertension (Chronic) Atrial fibrillation (Chronic) Pacemaker (Chronic) 2011 IMPLANTED FOR A-FIB Stroke (Resolved) CT SCAN NOVEMBER 2017 SHOWED EVIDENCE OF AN OLD STROKE ? EXACT DATE NOVEMBER 2017 SLURRED SPEECH/LEFT FOOT WEAKNESS CURRENTLY STILL HAS WEAKNESS IN LEFT SIDE/REHAB AFTER HOSPITALIZATION AWAITING TO HEAR BACK FOR GI OFFICE IF SURGEON OK WITH PT REMAINING ON BLOOD THINNER. Transient ischemic attack (TIA) (Resolved) Anxiety (Chronic) Depression (Chronic) Post traumatic stress disorder (Chronic) Macular degeneration (Chronic) Cancer (Resolved) BLADDER PROSTATE GERD (gastroesophageal reflux disease) (Chronic) Hiatal hernia (Chronic) Chronic kidney disease (Chronic) STAGE ? Osteoarthritis (Chronic) Gout (Chronic) Chronic back pain (Chronic) Peripheral neuropathy (Chronic) Diabetes mellitus, type 2 (Chronic) Coronary arteriosclerosis (Chronic) Depression with anxiety (Chronic) stable-continue Paxil and trazodone Thiamine deficiency (Chronic) Acute exacerbation of chronic obstructive pulmonary disease (COPD) (Resolved) Acute respiratory failure with hypoxia (Resolved) Cardiac pacemaker in situ (Resolved) Diabetes mellitus with hyperglycemia, without long-term current use of insulin (Resolved) increase insulin sliding scale and added Lantus 10 units daily -check HgbA1C HTN (hypertension), benign (Resolved) MJ on CPAP (Resolved) Paroxysmal atrial fibrillation (Resolved) Acute kidney injury Acute on chronic diastolic (congestive) heart failure Constipation Gout continue allopurinol for prophylaxis History of CVA (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 Hypomagnesemia Peripheral edema Surgical History History of cardiac cath (Resolved) STENT PLACED 2011 History of heart artery stent (Resolved) History of cataract surgery (Resolved) RT/LEFT History of tooth extraction (Resolved) History of cholecystectomy (Resolved) History of prostatectomy (Resolved) History of biopsy of bladder (Resolved) Presence of urostomy (Chronic) BLADDER REMOVED D/T CANCER STOMA REVISED History of laminectomy (Resolved) LUMBAR Pericardial disease (Resolved) PERICARDIAL WINDOW/MICROSCOPIC ([facility]) 2014 History of urostomy Family History Other Family history non-contributory Social History Preferred Language: Polish Communication Ability: Effective Senior Php Developer Required: No Beliefs That Will Affect Care: None marital status: Current Living Situation: Spouse Current Living Situation Comment: pt and his live with their dtr current occupational status: retired Other Information That Helps Us Care for You: No Feels Safe at Home: Yes Safety Concerns: Feels Safe At This Time Smoking Status: Never smoker Do You Dip or Chew Tobacco: No ; Second Hand Exposure: No ; Tobacco Cessation Education Requested by Patient: No Hx Alcohol Use: No Hx Substance Use: No Review of Systems Review of Systems: All systems reviewed & are unremarkable except as noted in HPI & below Physical Exam Physical Exam: General: no distress Eyes: normal inspection, PERLL Respiratory: chest non tender, clear to auscultation, normal breath sounds, no respiratory distress, no accessory muscle use Cardiac: regular rate and rhythm, no rub or gallop, no murmur, no edema, no jvd GI/: active bowel sounds, no abd pain or tenderness, soft, non distended, clear yellow urine in urostomy bag Extremities: normal range of motion, normal strength, non tender Neuro:oriented x 2, moves all extremities Psych: alert, normal mood and affect Skin: normal color, dry Results & Data Vital Signs (Past 12 Hours) Vital Signs Temp Pulse Pulse Resp BP BP Pulse Ox 02/15/19 15:17 60 12 135/63 94 02/15/19 14:45 60 12 135/63 94 02/15/19 13:17 68 16 124/71 98 02/15/19 12:56 60 60 16 98 02/15/19 12:03 60 16 99 02/15/19 11:01 36.5 C 74 16 130/68 97 Code Status & VTE Plan Code Status full VTE Prophylaxis Plan VTE Prophylaxis will be ordered: Yes Supervising Physician Co-Signing Physician Notes I supervised Laura Marquez NP on this patient's care. I examined the patient today independently of her. I discussed the plan of care with her with the plan being as written in her note except for any following changes/exceptions: None. 68yo M w/ hx of CHF and CKD now with cardiorenal syndrome. Cr has been increasing along with swelling. Will have cardiology and nephrology see him. Will consider advanced heart failure techniques. PG Care Time/CCT Total # of Minutes Spent Total Time Spent with Patient: Total time spent is greater than 50% in coordina tion of care (as documented) at patient's floor/unit and/or counseling patient: (1) Acute renal failure Acute renal failure type: unspecified Qualified Code(s): N17.9 - Acute kidney failure, unspecified (2) Congestive heart failure Heart failure chronicity: acute Heart failure type: systolic Qualified Code(s): I50.21 - Acute systolic (congestive) heart failure (3) COPD (chronic obstructive pulmonary disease) COPD type: unspecified COPD Qualified Code(s): J44.9 - Chronic obstructive pulmonary disease, unspecified
[2019-02-15] MEDS ORDERED: POLYETHYLENE (MIRALAX) 17 GM PACK PO PRN (15:53)
[2019-02-15] MEDS ORDERED: EUCERIN CR 120 GM JAR TOP PRN (15:53)
[2019-02-15] MEDS ORDERED: FLUTICASONE PROPIONATE NA SPR 16 GM BTL NAE PRN (15:53)
[2019-02-15] MEDS ORDERED: DOCUSATE SODIUM 100 MG CAP PO PRN (15:53)
[2019-02-15] MEDS ORDERED: NITROGLYCERIN 0.3 MG/1 TAB 100 TAB BTL SL PRN (15:53)
[2019-02-15] MEDS ORDERED: ACETAMINOPHEN 325 MG TAB PO PRN (15:53)
[2019-02-15] MEDS ORDERED: PHARMACY GLYCEMIC MGMT CONSULT PRN (16:02)
--- NOTE | 2019-02-15 16:52 | Emergency Department Note ---
Entered by Keyla Mtz acting as a scribe for Aditya Butcher MD History of Present Illness General Chief complaint: Illness Time Seen by Provider: 02/15/19 11:42 Source: patient History of Present Illness Provider complaint: Shortness of breath Onset (ago): day(s) 3 Location: upper extremity and lower extremity Pain Consistency: + constant Exacerbated By: + none Associated symptoms: + confusion and + weakness The patient is a 68 year old white male w/ PMHx of CHF (Last ejection fraction on record showing EF 50-55% a little less than one year ago), COPD (On 2-3L home Oxygen, no PFT's on file), Paroxysmal Atrial Fibrillation (On eliquis for anticoagulation and metoprolol for rate control; [facility]), CAD (Status post stents though he denies to me any heart attacks in the past), Permanent Pacemaker placement (Follows with [facility] in [place] for [facility]iology), Type II diabetes (On glipizide, does not use insulin), Bladder Cancer (With current urostomy and recurrent UTI's), HTN (On hydralazine, amlodipine, metoprolol and lasix 120 mg), HLD, history of multiple TIA's (On high dose atorvastatin), CKD III, MJ, and Gout who presents to the ED w/ CC of constant illness that began 3 days ago. The patient states that he feels weak all over his body and has been experiencing confusion. The patient reports his symptoms are not exacerbated by anything specific. The patient mentioned that he has gained 15 pounds in the last couple of days. The patient states he saw his flyer repairer a week ago and was told to cut down on his Lasix because of his poor kidney function. The patient reports he is typically on 3L of oxygen at home but had to be bumped up to 4L on Friday due to severe shortness of breath. Additionally, the patient notes he has a BIPAP machine but does not use it because he can't tolerate the mask. Home Medications Home Medications Medication Instructions Recorded Confirmed Type allopurinol 300 mg PO QAM 02/05/18 02/15/19 History aspirin [Aspir-81] 81 mg PO QAM 02/05/18 02/15/19 History atorvastatin 80 mg PO HS 02/05/18 02/15/19 History buspirone 20 mg PO BID 02/05/18 02/15/19 History furosemide 40 mg PO AMHS 02/05/18 02/15/19 History loratadine [Claritin] 10 mg PO QAM 02/05/18 02/15/19 History melatonin 10 mg PO HS 02/05/18 02/15/19 History nitroglycerin 0.3 mg SUBLINGUAL DIRECTED PRN 02/05/18 02/15/19 History pantoprazole 40 mg PO QAM 02/05/18 02/15/19 History PreserVision AREDS-2 1 tab PO QAM 02/16/18 02/15/19 History cholecalciferol (vitamin D3) 2,000 unit PO QAM 02/16/18 02/15/19 History [Vitamin D3] clonazepam [Klonopin] 0.5 mg PO DAILY PRN 02/16/18 02/15/19 History cyanocobalamin (vitamin B-12) 1,000 mcg PO QAM 02/16/18 02/15/19 History [Vitamin B-12] paroxetine HCl [Paxil CR] 45 mg PO HS 02/16/18 02/15/19 History trazodone 150 mg PO HS 02/16/18 02/15/19 History metoprolol tartrate 100 mg PO BID #60 tab 02/19/18 02/15/19 Rx hydralazine 25 mg PO TID 05/15/18 02/15/19 History potassium chloride 10 meq PO QAM 09/28/18 02/15/19 History thiamine HCl (vitamin B1) 100 mg 100 mg PO QAM tab 12/22/18 02/15/19 History tablet amlodipine 10 mg PO QAM 01/04/19 02/15/19 History albuterol sulfate 2 puff INHALATION Q4H PRN 02/12/19 02/15/19 History apixaban 5 mg PO BID 02/12/19 02/15/19 History budesonide-formoterol 2 puff INHALATION BID 02/12/19 02/15/19 History fluticasone propionate 1 spray INTRANASAL DAILY PRN 02/12/19 02/15/19 History gabapentin 600 mg PO BID 02/12/19 02/15/19 History hydrophilic cream 1 applic TOPICAL DAILY PRN 02/12/19 02/15/19 History isosorbide mononitrate 30 mg PO QAM 02/12/19 02/15/19 History lisinopril 2.5 mg PO QAM 02/12/19 02/15/19 History docusate sodium 100 mg PO DAILY PRN 02/13/19 02/15/19 History doxycycline hyclate 100 mg PO BID 5 Days #10 tab 02/13/19 02/15/19 Rx tiotropium bromide 1 cap INHALATION QAM 02/13/19 02/15/19 History glipizide 10 mg PO QAM 02/15/19 02/15/19 History prednisone 60 mg PO QAM 02/15/19 02/15/19 History Allergies Allergy/AdvReac Type Severity Reaction Status Date / Time codeine AdvReac Mild "trips me Verified 02/12/19 23:47 out" promethazine AdvReac Unknown UNCONTROLLED Verified 02/12/19 23:47 MUSCLE MOVEMENTS Past Med/Surg History Medical History Type 2 diabetes mellitus without complication Recurrent UTI Paroxysmal atrial fibrillation Morbid obesity Essential hypertension CKD (chronic kidney disease), stage III CAD (coronary artery disease), [place] coronary artery Acute on chronic renal insufficiency Chronic obstructive pulmonary disease (Chronic) Sleep apnea (Chronic) CPAP Congestive heart failure (Resolved) Hyperlipidemia (Chronic) Hypertension (Chronic) Atrial fibrillation (Chronic) Pacemaker (Chronic) 2011 IMPLANTED FOR A-FIB Stroke (Resolved) CT SCAN NOVEMBER 2017 SHOWED EVIDENCE OF AN OLD STROKE ? EXACT DATE NOVEMBER 2017 SLURRED SPEECH/LEFT FOOT WEAKNESS CURRENTLY STILL HAS WEAKNESS IN LEFT SIDE/REHAB AFTER HOSPITALIZATION AWAITING TO HEAR BACK FOR GI OFFICE IF SURGEON OK WITH PT REMAINING ON BLOOD THINNER. Transient ischemic attack (TIA) (Resolved) Anxiety (Chronic) Depression (Chronic) Post traumatic stress disorder (Chronic) Macular degeneration (Chronic) Cancer (Resolved) BLADDER PROSTATE GERD (gastroesophageal reflux disease) (Chronic) Hiatal hernia (Chronic) Chronic kidney disease (Chronic) STAGE ? Osteoarthritis (Chronic) Gout (Chronic) Chronic back pain (Chronic) Peripheral neuropathy (Chronic) Diabetes mellitus, type 2 (Chronic) Coronary arteriosclerosis (Chronic) Depression with anxiety (Chronic) stable-continue Paxil and trazodone Thiamine deficiency (Chronic) Acute exacerbation of chronic obstructive pulmonary disease (COPD) (Resolved) Acute respiratory failure with hypoxia (Resolved) Cardiac pacemaker in situ (Resolved) Diabetes mellitus with hyperglycemia, without long-term current use of insulin (Resolved) increase insulin sliding scale and added Lantus 10 units daily -check HgbA1C HTN (hypertension), benign (Resolved) MJ on CPAP (Resolved) Paroxysmal atrial fibrillation (Resolved) Acute kidney injury Acute on chronic diastolic (congestive) heart failure Constipation Gout continue allopurinol for prophylaxis History of CVA (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 Hypomagnesemia Peripheral edema Surgical History History of cardiac cath (Resolved) STENT PLACED 2011 History of heart artery stent (Resolved) History of cataract surgery (Resolved) RT/LEFT History of tooth extraction (Resolved) History of cholecystectomy (Resolved) History of prostatectomy (Resolved) History of biopsy of bladder (Resolved) Presence of urostomy (Chronic) BLADDER REMOVED D/T CANCER STOMA REVISED History of laminectomy (Resolved) LUMBAR Pericardial disease (Resolved) PERICARDIAL WINDOW/[facility]CROSCOPIC ([facility] 2014 History of urostomy Family History Other Family history non-contributory Social History Preferred Language: Lithuanian Communication Ability: Effective 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 and A total of 10 systems reviewed and were otherwise negative Physical Exam Vital Signs Vital Signs - 24 hr 02/15/19 11:01 02/15/19 12:03 02/15/19 12:56 Temperature 36.5 C Temperature Source Oral Sepsis Recent Fever Within 48 Hours No Sepsis New/Unexplained Change in Mental Status No Sepsis Action Taken by Nursing No Action Required Pulse Rate 74 60 60 Pulse Rate [Finger] 60 Respiratory Rate 16 16 16 Respiratory Effort / Characteristics Non-Labored Spontaneous Non-Labored Spontaneous Respiratory Depth Normal Normal Respiratory Pattern Regular Regular Blood Pressure 130/68 Blood Pressure [Right Arm] Blood Pressure Mean 88 Blood Pressure Mean [Right Arm] Pulse Oximetry 97 99 98 Oxygen Delivery Method Nasal Cannula BiPAP Oxygen Flow Rate 3 Fraction of Inspired Oxygen 30 30 02/15/19 13:17 Temperature Temperature Source Sepsis Recent Fever Within 48 Hours Sepsis New/Unexplained Change in Mental Status Sepsis Action Taken by Nursing Pulse Rate Pulse Rate [Finger] 68 Respiratory Rate 16 Respiratory Effort / Characteristics Respiratory Depth Respiratory Pattern Blood Pressure Blood Pressure [Right Arm] 124/71 Blood Pressure Mean Blood Pressure Mean [Right Arm] 88 Pulse Oximetry 98 Oxygen Delivery Method Room Air Oxygen Flow Rate Fraction of Inspired Oxygen GENERAL: Well nourished, wearing glasses, occasionally sleeping. EYE EXAM: Normal conjunctiva. PERRL, no anisocoria and EOM's grossly intact w/o pain. OROPHARYNX: Moist mucous membranes. Grossly normal dentition. NECK: Supple, no nuchal rigidity, no adenopathy, non-tender. No signs of meningismus. LUNGS: Blunting bilateral basis with crackles. Normal chest wall mechanics. CHEST: Device in left chest. HEART: NSR, no MRG. ABDOMEN: Abdomen soft, non-tender, normo-active bowel sounds, no masses, no rebound or guarding. Urostomy in RLQ draining straw colored urine. BACK: No CVA TTP. SKIN: No rashes and no bruising. UPPER EXTREMITIES: Upper extremities are grossly normal. LOWER EXTREMITIES: 1-2+ lower extremity edema. Small bruise over medial aspect of right ankle. Non-tender. Compartment soft. Good range of motion in ankle. No calf pain. NEURO EXAM: A&O x3, cranial nerves II-XII grossly intact, normal speech, moves all 4 extremities on command w/o issue. Course 1146: Past medical records reviewed. The patient was evaluated in room A9A. A complete history and physical exam was performed. 1308: I spoke with Dr. R[facility] about the patient's case. He will accept the patient for further evaluation. Administered Medications Discontinued Medications Albuterol (Duoneb) 6 ml NEB NOW STA Stop: 02/15/19 12:38 Last Admin: 02/15/19 12:52 Dose: 6 ml Documented by: [id number] Dextrose (Dextrose 50%) 50 ml IV NOW STA Stop: 02/15/19 12:38 Last Admin: 02/15/19 13:12 Dose: 50 ml Documented by: [id number] Calcium Gluconate 1,000 mg/ (Sodium Chloride) 60 mls @ 240 mls/hr IV NOW STA Stop: 02/15/19 12:51 Last Infusion: 02/15/19 13:54 Dose: 0 mls/hr Documented by: [id number] Admin: 02/15/19 13:13 Dose: 240 mls/hr Documented by: [id number] Insulin Human Regular (Novolin R U-100 Per Unit) 10 units IV NOW STA Stop: 02/15/19 12:38 Last Admin: 02/15/19 13:13 Dose: 10 units Documented by: [id number] Cosigned by: [id number] Medical Decision Making Differential Diagnosis Differential diagnosis: Etiologies such as infections, reactive airway disease, COPD, pneumonia, pleural effusion, pulmonary edema, ARDS, pneumothorax, CHF, cardiac ischemia, cardiac tamponade, dysrhythmia, anemia, pulmonary embolism, musculoskeletal, gastrointestinal process, as well as others were entertained. Medical Records Attestation: I reviewed the patient's medical records. Home Medications Current Medication List: was personally reviewed by me Laboratory Data Attestation: I reviewed the patient's lab results. Result diagrams: 02/15/19 11:58 02/15/19 11:58 Lab Results 02/15/19 02/15/19 02/15/19 Range/Units 11:58 11:58 11:58 WBC 11.46 H (4.8-10.8) K/uL RBC 3.11 L (4.7-6.1) M/uL Hgb 9.9 L (14.0-18.0) g/dL Hct 30.6 L (42-52) % MCV 98.4 (80-100) fL MCH 31.8 (25-34) pg MCHC 32.4 (32-36) g/dL RDW Std Deviation 57.9 H (36.4-46.3) fL RDW Coeff of Dacia 16.3 H (11.5-14.5) % Plt Count 164 (130-400) K/uL MPV 11.2 H (7.4-10.4) fL Immature Gran % (Auto) 0.3 % Neut % (Auto) 94.7 % Lymph % (Auto) 3.6 % [place] % (Auto) 1.4 % Eos % (Auto) 0.0 % Baso % (Auto) 0.0 % Immature Gran # (Auto) 0.03 H (0.00-0.02) K/uL Neut # (Auto) 10.86 H (1.4-6.5) K/uL Lymph # (Auto) 0.41 L (1.2-3.4) K/uL [place] # (Auto) 0.16 (0.11-0.59) K/uL Eos # (Auto) 0.00 (0-0.5) K/uL Baso # (Auto) 0.00 (0-0.2) K/uL PT 12.3 H (9.0-12.0) Seconds INR 1.2 H (0.9-1.1) VBG pH (7.36-7.41) VBG pCO2 (38-50) mmHg VBG pO2 mmHg VBG HCO3 mmol/L VBG O2 Saturation % VBG Base Excess mEq/L Barometric Pressure mm/Hg Sodium 134 L (136-145) mmol/L Potassium 6.0 H (3.5-5.1) mmol/L Chloride 102 (98-107) mmol/L Carbon Dioxide 24 (21-32) mmol/L Anion Gap 8.0 (3-11) BUN 108 H (7-18) mg/dl Creatinine 4.77 H* (0.6-1.4) mg/dl Est Cr Clr Drug Dosing 19.3 ml/min Est GFR ( Amer) 13.3 Est GFR (Non-Af Amer) 11.5 BUN/Creatinine Ratio 22.6 H (10-20) Glucose 218 H (70-99) mg/dl Calcium 8.9 (8.5-10.1) mg/dl Magnesium 2.2 (1.8-2.4) mg/dl Total Bilirubin 0.4 (0.2-1) mg/dl AST 13 L (15-37) U/L ALT 22 (12-78) U/L Alkaline Phosphatase 112 (45-117) U/L Troponin I < 0.015 (0-0.045) ng/ml NT-Pro-B Natriuret Pep 9413 H (0-900) pg/ml Total Protein 7.2 (6.4-8.2) gm/dl Albumin 3.8 (3.4-5.0) gm/dl Globulin 3.4 (2.5-4.0) gm/dl Albumin/Globulin Ratio 1.1 (0.9-2) TSH 2.620 (0.300-4.500) uIu/ml 02/15/19 Range/Units 11:58 WBC (4.8-10.8) K/uL RBC (4.7-6.1) M/uL Hgb (14.0-18.0) g/dL Hct (42-52) % MCV (80-100) fL MCH (25-34) pg MCHC (32-36) g/dL RDW Std Deviation (36.4-46.3) fL RDW Coeff of Dacia (11.5-14.5) % Plt Count (130-400) K/uL MPV (7.4-10.4) fL Immature Gran % (Auto) % Neut % (Auto) % Lymph % (Auto) % [place] % (Auto) % Eos % (Auto) % Baso % (Auto) % Immature Gran # (Auto) (0.00-0.02) K/uL Neut # (Auto) (1.4-6.5) K/uL Lymph # (Auto) (1.2-3.4) K/uL [place] # (Auto) (0.11-0.59) K/uL Eos # (Auto) (0-0.5) K/uL Baso # (Auto) (0-0.2) K/uL PT (9.0-12.0) Seconds INR (0.9-1.1) VBG pH 7.27 L (7.36-7.41) VBG pCO2 47 (38-50) mmHg VBG pO2 53 mmHg VBG HCO3 21 mmol/L VBG O2 Saturation 82.2 % VBG Base Excess -5.3 mEq/L Barometric Pressure 733.8 mm/Hg Sodium (136-145) mmol/L Potassium (3.5-5.1) mmol/L Chloride (98-107) mmol/L Carbon Dioxide (21-32) mmol/L Anion Gap (3-11) BUN (7-18) mg/dl Creatinine (0.6-1.4) mg/dl Est Cr Clr Drug Dosing ml/min Est GFR ( Amer) Est GFR (Non-Af Amer) BUN/Creatinine Ratio (10-20) Glucose (70-99) mg/dl Calcium (8.5-10.1) mg/dl Magnesium (1.8-2.4) mg/dl Total Bilirubin (0.2-1) mg/dl AST (15-37) U/L ALT (12-78) U/L Alkaline Phosphatase (45-117) U/L Troponin I (0-0.045) ng/ml NT-Pro-B Natriuret Pep (0-900) pg/ml Total Protein (6.4-8.2) gm/dl Albumin (3.4-5.0) gm/dl Globulin (2.5-4.0) gm/dl Albumin/Globulin Ratio (0.9-2) TSH (0.300-4.500) uIu/ml Imaging Data Radiologist's Impression: Radiology results as stated below per my review and the radiologist's interpretation: XR chest 1V portable CLINICAL HISTORY: weakness mental status change COMPARISON STUDY: 02/12/2019 FINDINGS: Stable heart and megaly. Prominent pulmonary vasculature. Prominence of pulmonary vasculature is slightly improved. Diaphragms are smooth. There is a permanent bipolar cardiac pacemaker. IMPRESSION: Slight improvement of the patient's congestive failure/pulmonary edema. The above report was generated using voice recognition software. It may contain grammatical, syntax or spelling errors. Electronically signed by: Armen Fierro M.D. 02/15/2019 12:14 PM ECG Data Attestation: I personally reviewed and interpreted this ECG as follows: Indication: SOB/dyspnea Rate (beats per minute): 60 Rhythm: other (V paced rhythm ) Findings: + other (Wide QRS, ) and + LBBB (Wide) Comparison ECG Date: from (02/12/2019) Change: the following changes noted (PVC no longer present. Otherwise unchanged. ) Blood Pressure Blood Pressure Findings: Normal blood pressure Blood Pressure Disposition: further management by hospitalist HAZEL Sawant Patient was seen and evaluated the bedside. Patient has had some worsening shortness of breath as well as some associated confusion. The patient recently uptitrated his own oxygen at home. The patient was recently seen and evaluated started on prednisone as well as to continue on Lasix although his Lasix was recently decreased due to worsening kidney dysfunction. The patient did take his morning dose of Lasix. The patient does have acute renal failure and I believe the patient does have an element of CO2 narcosis so the patient was placed on BiPAP prior to receiving a VBG. The patient potassium was treated as it is elevated with insulin D50 calcium and albuterol treatments. I did speak the on-call hospitalist who agreed to further evaluate treat the patient. Patient was admitted to the medicine service. VBG shows mild decrease pH of 727 with an associated PCO2 of 47. Patient has tolerated the BiPAP well. Impression & Plan Acute hyperkalemia, Acute renal failure, CHF (congestive heart failure), COPD (chronic obstructive pulmonary disease) Critical Care Time Critical Care Time: Yes Total Critical Care Time: 82 I have personally spent 82 minutes of critical care time in the direct management of this patient. This includes bedside care, interpretation of diagnostic studies, and testing, discussion with consultants, patient, and family members, and other required patient management activities. This 82 minutes is in excess of all separately billable procedures. Discharge Plan Visit Data *Final* Discharge Date/Time: 02/15/19 15:17 Chief Complaint: Illness ED Provider: Aditya Butcher Discharge Problem: Acute hyperkalemia, Acute renal failure, CHF (congestive heart failure), COPD (chronic obstructive pulmonary disease) Patient Disposition: Admitted As Inpatient Discharge Instructions Interventions: ED Discharge Assessment Last Done: 02/15/19 15:17 Discharge Problem: Acute renal failure Qualifiers: Acute renal failure type: unspecified Qualified Code(s): N17.9 - Acute kidney failure, unspecified CHF (congestive heart failure) Qualifiers: Heart failure type: unspecified Heart failure chronicity: unspecified Qualified Code(s): I50.9 - Heart failure, unspecified COPD (chronic obstructive pulmonary disease) Qualifiers: COPD type: unspecified COPD Qualified Code(s): J44.9 - Chronic obstructive pulmonary disease, unspecified The scribe's documentation has been prepared under my direction and personally reviewed by me in its entirety. I confirm that the note above accurately reflects all work, treatment, procedures, and medical decision making performed by me.
[2019-02-15] MEDS ORDERED: GLUCOSE 10 TABS/TUBE PO PRN (17:15)
[2019-02-15] MEDS ORDERED: GLUCAGON FOR INJ 1 MG VIAL IM PRN (17:15)
[2019-02-15] MEDS ORDERED: DEXTROSE 50% 50 ML SYRINGE IV PRN (17:15)
[2019-02-15] MEDS ORDERED: GLUCOSE 40% GEL 15 GM TUBE PO PRN (17:15)
[2019-02-15] MEDS ORDERED: CARBOHYDRATES FOR HYPOGLYCEMIA PO PRN (17:15)
[2019-02-15] MEDS ORDERED: INSULIN GLARGINE SOLOSTAR 100 UNITS/ML 3 ML PEN SC SCH (17:30)
[2019-02-15] MEDS ORDERED: Nursing to Pharmacy Communication ONE (17:32)
[2019-02-15 18:41] LABS: BUN Creatinine Ratio 23.1 (10-20); Calcium 8.8 mg/dl (8.5-10.1); Creatinine Clr Calc Pharmacy 18.5 ml/min; Est GFR (African American) 12.7; Potassium 5.8 mmol/L (3.5-5.1)
[2019-02-15 19:11] LABS: Appearance Urine Clear (Clear); Bacteria Urine Automated 1+ (Negative); Bilirubin Urine Negative (Negative); Blood Urine Negative (Negative); Color Urine Yellow; Glucose Urine UA Negative (Negative); Ketones Urine Negative (Negative); Leukocyte Esterase Urine Trace (Negative); Nitrite Urine Positive (Negative); Protein Urine Negative (Negative); RBC Urine Automated 0-4 /hpf (0-4); Specific Gravity Urine 1.016 (1.000-1.030); Urobilinogen Urine Negative (Negative)
[2019-02-15] MEDS: INSULIN ASPART 100 UNITS/ML 3 ML PEN SC SCH ×2 (19:31→19:47)
[2019-02-15] MEDS ORDERED: SODIUM POLYSTYRENE SULFONATE 15G/60ML SUSP PO ONE (20:30)
[2019-02-15] MEDS: APIXABAN 5 MG TABLET PO SCH (21:20)
[2019-02-15] MEDS: clonazePAM 1 MG TAB PO PRN (21:20)
[2019-02-15] MEDS: PARoxetine HCl CONTROLLED REL 12.5 MG TABCR PO SCH (21:21)
[2019-02-15] MEDS: GABAPENTIN 600 MG TAB PO SCH (21:21)
[2019-02-15] MEDS: ATORVASTATIN 40 MG TAB PO SCH (21:22)
[2019-02-15] MEDS: DOXYCYCLINE HYCLATE 100 MG CAP PO SCH (21:23)
[2019-02-15] MEDS: BUDESONIDE/FORMOTEROL FUMARATE 160/4.5 60 PUFFS/INHALER INH SCH (21:23)
[2019-02-15] MEDS: METOPROLOL TARTRATE 100 MG TAB PO SCH (21:24)
[2019-02-15] MEDS: TRAZODONE HCL 50 MG TAB PO SCH (21:24)
[2019-02-16] MEDS: INSULIN ASPART 100 UNITS/ML 3 ML PEN SC SCH ×7 (00:11→21:18)
[2019-02-16 06:29] LABS: Hematocrit (blood only) 30.2 % (42-52); Hemoglobin 9.9 g/dL (14.0-18.0); Mean Corpuscular Hemoglobin 32.2 pg (25-34); Mean Corpuscular Hgb Conc 32.8 g/dL (32-36); Mean Corpuscular Volume 98.4 fL (80-100); Mean Platelet Volume 11.3 fL (7.4-10.4); Nucleated RBC # (auto) 0.06 K/uL (0-0); Nucleated RBC % (auto) 0.6 %; Platelet Count 161 K/uL (130-400); Red Blood Count 3.07 M/uL (4.7-6.1); White Blood Count 10.15 K/uL (4.8-10.8)
[2019-02-16 07:00] LABS: Estimated Average Glucose 143 mg/dl; Hemoglobin A1C 6.6 % (4.5-5.6)
[2019-02-16 07:19] LABS: BUN Creatinine Ratio 24.1 (10-20); Calcium 8.9 mg/dl (8.5-10.1); Creatinine Clr Calc Pharmacy 18.7 ml/min; Est GFR (African American) 12.9; Est GFR (Non-African American) 11.1; Potassium 5.6 mmol/L (3.5-5.1)
[2019-02-16] MEDS: LORATADINE 10 MG TAB PO SCH (07:50)
[2019-02-16] MEDS: GABAPENTIN 600 MG TAB PO SCH ×2 (07:51→21:14)
[2019-02-16] MEDS: allopurinoL 100 MG TAB PO SCH (07:51)
[2019-02-16] MEDS: THIAMINE HCL 100 MG TAB PO SCH (07:52)
[2019-02-16] MEDS: CEROVITE ADV FORMULA TAB PO SCH (07:52)
[2019-02-16] MEDS: DOXYCYCLINE HYCLATE 100 MG CAP PO SCH ×2 (07:52→21:16)
[2019-02-16] MEDS: ASPIRIN 81 MG ECTAB PO SCH (07:52)
[2019-02-16] MEDS: PANTOprazole 40 MG TAB PO SCH (07:52)
[2019-02-16] MEDS: CHOLECALCIFEROL 1,000 UNITS TAB PO SCH (07:53)
[2019-02-16] MEDS: predniSONE 20 MG TAB PO SCH (07:53)
[2019-02-16] MEDS: CYANOCOBALAMIN 500 MCG TABLET (VITAMIN B-12) PO SCH (07:53)
[2019-02-16] MEDS: BUDESONIDE/FORMOTEROL FUMARATE 160/4.5 60 PUFFS/INHALER INH SCH ×2 (07:53→21:14)
[2019-02-16] MEDS: TIOTROPIUM BROMIDE 5 PUFF/90 MCG INH INH SCH (07:54)
[2019-02-16] MEDS: APIXABAN 5 MG TABLET PO SCH ×2 (08:03→21:12)
[2019-02-16] MEDS: AMLODIPINE BESYLATE 5 MG TAB PO SCH (08:03)
[2019-02-16] MEDS: ISOSORBIDE MONO EXTENDED REL 30 MG TABCR PO SCH (08:03)
[2019-02-16] MEDS: METOPROLOL TARTRATE 100 MG TAB PO SCH ×2 (08:03→21:13)
[2019-02-16] MEDS ORDERED: allopurinoL 300 MG TAB PO SCH (09:00)
[2019-02-16] MEDS ORDERED: SODIUM POLYSTYRENE SULFONATE 15G/60ML SUSP PO STA (11:41)
--- NOTE | 2019-02-16 11:44 | Nephrology Consultation ---
Date of Consultation February 16, 2019 Assessment & Plan (1) Acute renal failure: -- Difficult physical exam due to body habitus. Clinically suspect CANDACE related to intravascular volume contraction associated w/ diuretic use -- Benign urine sediment -- Will order FeNa -- Will order renal US -- Hold Furosemide and Lisinopril -- Encourage oral hydration -- Monitor serial PRP (2) CKD (chronic kidney disease), stage III: -- Baseline creatinine ~ 1.8 (3) Acute hyperkalemia: -- Potassium is trending down. Will provide additional 15 g Kayexelate today -- Low potassium diet -- KCL supplement has been stopped (4) CHF (congestive heart failure): -- Recommend ordering echocardiogram History of Present Illness Reason for Consultation: CANDACE/CKD Attending Physician: Lemuel Rizo MD History of Present Illness Mr. Pierce is a 68 year old white male who is seen at the request of Dr. Rizo for evaluation of CANDACE/CKD. Medical records in the EMR were reviewed today and are summarized as follows: Mr. Pierce receives the majority of his medical care at the [facility]. His medical history is significant for recurrent CHF due to diastolic dysfunction, tachy-casey syndrome (Eliquis), pacemaker, multiple TIA, obesity, AODM, MJ, HTN, bladder CA s/p cystectomy w/ urostomy, prostate CA s/p prostatectomy, gout and stage III CKD. Patient's baseline creatinine has been 1.6 - 1.8. His Corrosion Prevention Metal Sprayer has been Dr. Luong. Mr. Pierce reports a 15 lb weight gain over the last 2 weeks. Initially his PCP increased his diuretic but then lowered to Lasix 40 mg po BID when he checked labs and found worsening kidney dysfunction. Mr. Pierce became progressively weaker and SOB. He was brought to the ED last evening for evaluation. Initial laboratory results revealed K 6.0, BUN 114 and creatinine 4.9. Patient was provided medical management for hyperkalemia. Lasix, Lisinopril and KCl have been held. Patient remains nonoliguric and is diuresing on his own. He was taken off BiPAP last night and is now breathing comfortably flat in bed on his regular maintenance O2 at 3L/min NC. Allergies Allergy/AdvReac Type Severity Reaction Status Date / Time codeine AdvReac Mild "trips me Verified 02/12/19 23:47 out" promethazine AdvReac Unknown UNCONTROLLED Verified 02/12/19 23:47 MUSCLE MOVEMENTS Home Medications Home Medications Medication Instructions Recorded Confirmed Type allopurinol 300 mg PO QAM 02/05/18 02/15/19 History aspirin [Aspir-81] 81 mg PO QAM 02/05/18 02/15/19 History atorvastatin 80 mg PO HS 02/05/18 02/15/19 History buspirone 20 mg PO BID 02/05/18 02/15/19 History furosemide 40 mg PO AMHS 02/05/18 02/15/19 History loratadine [Claritin] 10 mg PO QAM 02/05/18 02/15/19 History melatonin 10 mg PO HS 02/05/18 02/15/19 History nitroglycerin 0.3 mg SUBLINGUAL DIRECTED PRN 02/05/18 02/15/19 History pantoprazole 40 mg PO QAM 02/05/18 02/15/19 History PreserVision AREDS-2 1 tab PO QAM 02/16/18 02/15/19 History cholecalciferol (vitamin D3) 2,000 unit PO QAM 02/16/18 02/15/19 History [Vitamin D3] clonazepam [Klonopin] 0.5 mg PO DAILY PRN 02/16/18 02/15/19 History cyanocobalamin (vitamin B-12) 1,000 mcg PO QAM 02/16/18 02/15/19 History [Vitamin B-12] paroxetine HCl [Paxil CR] 45 mg PO HS 02/16/18 02/15/19 History trazodone 150 mg PO HS 02/16/18 02/15/19 History metoprolol tartrate 100 mg PO BID #60 tab 02/19/18 02/15/19 Rx hydralazine 25 mg PO TID 05/15/18 02/15/19 History potassium chloride 10 meq PO QAM 09/28/18 02/15/19 History thiamine HCl (vitamin B1) 100 mg 100 mg PO QAM tab 12/22/18 02/15/19 History tablet amlodipine 10 mg PO QAM 01/04/19 02/15/19 History albuterol sulfate 2 puff INHALATION Q4H PRN 02/12/19 02/15/19 History apixaban 5 mg PO BID 02/12/19 02/15/19 History budesonide-formoterol 2 puff INHALATION BID 02/12/19 02/15/19 History fluticasone propionate 1 spray INTRANASAL DAILY PRN 02/12/19 02/15/19 History gabapentin 600 mg PO BID 02/12/19 02/15/19 History hydrophilic cream 1 applic TOPICAL DAILY PRN 02/12/19 02/15/19 History isosorbide mononitrate 30 mg PO QAM 02/12/19 02/15/19 History lisinopril 2.5 mg PO QAM 02/12/19 02/15/19 History docusate sodium 100 mg PO DAILY PRN 02/13/19 02/15/19 History doxycycline hyclate 100 mg PO BID 5 Days #10 tab 02/13/19 02/15/19 Rx tiotropium bromide 1 cap INHALATION QAM 02/13/19 02/15/19 History glipizide 10 mg PO QAM 02/15/19 02/15/19 History prednisone 60 mg PO QAM 02/15/19 02/15/19 History Patient History Medical History Type 2 diabetes mellitus without complication Recurrent UTI Paroxysmal atrial fibrillation Morbid obesity Essential hypertension CKD (chronic kidney disease), stage III CAD (coronary artery disease), [place] coronary artery Acute on chronic renal insufficiency Chronic obstructive pulmonary disease (Chronic) Sleep apnea (Chronic) CPAP Congestive heart failure (Resolved) Hyperlipidemia (Chronic) Hypertension (Chronic) Atrial fibrillation (Chronic) Pacemaker (Chronic) 2011 IMPLANTED FOR A-FIB Stroke (Resolved) CT SCAN NOVEMBER 2017 SHOWED EVIDENCE OF AN OLD STROKE ? EXACT DATE NOVEMBER 2017 SLURRED SPEECH/LEFT FOOT WEAKNESS CURRENTLY STILL HAS WEAKNESS IN LEFT SIDE/REHAB AFTER HOSPITALIZATION AWAITING TO HEAR BACK FOR GI OFFICE IF SURGEON OK WITH PT REMAINING ON BLOOD THINNER. Transient ischemic attack (TIA) (Resolved) Anxiety (Chronic) Depression (Chronic) Post traumatic stress disorder (Chronic) Macular degeneration (Chronic) Cancer (Resolved) BLADDER PROSTATE GERD (gastroesophageal reflux disease) (Chronic) Hiatal hernia (Chronic) Chronic kidney disease (Chronic) STAGE ? Osteoarthritis (Chronic) Gout (Chronic) Chronic back pain (Chronic) Peripheral neuropathy (Chronic) Diabetes mellitus, type 2 (Chronic) Coronary arteriosclerosis (Chronic) Depression with anxiety (Chronic) stable-continue Paxil and trazodone Thiamine deficiency (Chronic) Acute exacerbation of chronic obstructive pulmonary disease (COPD) (Resolved) Acute respiratory failure with hypoxia (Resolved) Cardiac pacemaker in situ (Resolved) Diabetes mellitus with hyperglycemia, without long-term current use of insulin (Resolved) increase insulin sliding scale and added Lantus 10 units daily -check HgbA1C HTN (hypertension), benign (Resolved) MJ on CPAP (Resolved) Paroxysmal atrial fibrillation (Resolved) Acute kidney injury Acute on chronic diastolic (congestive) heart failure Constipation Gout continue allopurinol for prophylaxis History of CVA (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 Hypomagnesemia Peripheral edema Surgical History History of cardiac cath (Resolved) STENT PLACED 2011 History of heart artery stent (Resolved) History of cataract surgery (Resolved) RT/LEFT History of tooth extraction (Resolved) History of cholecystectomy (Resolved) History of prostatectomy (Resolved) History of biopsy of bladder (Resolved) Presence of urostomy (Chronic) BLADDER REMOVED D/T CANCER STOMA REVISED History of laminectomy (Resolved) LUMBAR Pericardial disease (Resolved) PERICARDIAL WINDOW/MICROSCOPIC ([facility]) 2014 History of urostomy Family History Other Family history non-contributory Social History Preferred Language: Cymro Communication Ability: Effective Nurse Gynecology Required: No Beliefs That Will Affect Care: None marital status: Current Living Situation: Spouse Current Living Situation Comment: pt and his live with their dtr current occupational status: retired Other Information That Helps Us Care for You: No Feels Safe at Home: Yes Safety Concerns: Feels Safe At This Time Smoking Status: Never smoker Do You Dip or Chew Tobacco: No ; Second Hand Exposure: No ; Tobacco Cessation Education Requested by Patient: No Hx Alcohol Use: No Hx Substance Use: No Review of Systems Constitutional: + weakness; no fever and no chills Eyes: no worsening vision and no problem reported Ear, Nose, Mouth, Throat: no problem reported Respiratory: + dyspnea Cardiovascular: + edema; no chest pain and no palpitations Gastrointestinal: + diarrhea/loose stools; no abdominal pain, no nausea and no vomiting Genitourinary: no dysuria, no urinary hesitancy and no hematuria Musculoskeletal: no back pain Integumentary: no rash Neurologic: + confusion Physical Exam Constitutional: + obese; not in distress Eyes: PERRL, conjunctivae normal, anicteric sclerae ENMT: external ear and nose normal, oropharynx normal Neck: trachea midline, no thyromegaly Respiratory: normal respiratory effort Auscultation: + crackles Cardiovascular: Rate/Rhythm: regular rate Extremities: + edema (2+ LE edema) Gastrointestinal (Abdomen): normal bowel sounds, soft, nontender, no hepatosplenomegaly Musculoskeletal: Extremities: no cyanosis Skin: no rashes, warm and dry Neurologic: awake; not confused Results & Data Vital Signs (Past 12 Hours) Vital Signs Temp Pulse Pulse Resp BP BP Pulse Ox 02/16/19 10:49 36.4 C L 60 18 110/64 94 02/16/19 07:23 36.5 C 62 17 126/72 96 02/16/19 04:00 36.4 C L 60 18 122/70 99 02/16/19 00:00 60 Laboratory Results Laboratory Tests 02/16/19 02/16/19 06:19 06:19 WBC 10.15 Hgb 9.9 L Hct 30.2 L Plt Count 161 Sodium 138 Potassium 5.6 H Chloride 106 Carbon Dioxide 22 BUN 118 H Creatinine 4.90 H* Glucose 124 H PG Care Time/CCT Total # of Minutes Spent Total Time Spent with Patient: Total time spent is greater than 50% in coordination of care (as documented) at patient's floor/unit and/or counseling patient: (1) Acute renal failure Acute renal failure type: unspecified Qualified Code(s): N17.9 - Acute kidney failure, unspecified (2) CHF (congestive heart failure) Heart failure chronicity: unspecified Heart failure type: unspecified Qualified Code(s): I50.9 - Heart failure, unspecified
[2019-02-16] MEDS ORDERED: INSULIN GLARGINE SOLOSTAR 100 UNITS/ML 3 ML PEN SC SCH (12:00)
--- NOTE | 2019-02-16 13:16 | Hospitalist Progress Note ---
Date of Service February 16, 2019 Assessment & Plan (1) Acute renal failure: Creatinine 4.77 on admission with hyperkalemia - creatinine trending up to 4.9 today Hold furosemide, lisinopril Consulted nephrology - they recommend FeNa and renal ultrasound and to encourage renal hydration (2) Acute hyperkalemia: Given dextrose and insulin in ED Kayexalate x 3 so far this admission with potassium trending down follo prp follow on heart monitor hold po potassium Low potassium diet (3) COPD (chronic obstructive pulmonary disease): with recent exacerbation Continue doxycycline/prednisone regimen started in ED 02/13 (4) Paroxysmal atrial fibrillation: Continue apixaban, metoprolol (5) Type 2 diabetes mellitus without complication: hold home glipizide glycemic pharmacist consult (6) Congestive heart failure: Chronic diastolic heart failure BNP over 9,000 CXR showing slight improvement of the patient's congestive failure/pulmonary edema but congestion persists Lower extremity edema Hold diuretics as above for now, consulted nephrology for assistance on fluid balance Echo pending (7) Hyperlipidemia: continue statin (8) Hypertension: continue metoprolol, amlodipine, hold lisinopril (9) Thiamine deficiency: continue thiamine supplementation (10) Depression: continue paroxetine, trazodone (11) Morbid obesity: diet and exercise counseling (12) Coronary artery disease: continue atorvastatin, asa, isosorbide (13) DVT prophylaxis: Apixaban, SCDs Subjective Mr. Pierce's respiratory status has improved today, he is off bipap. He is feeling hungry and is requesting a diet be put in for him. and friend are bedside and I spent time answering their questions. Review of Systems Review of Systems: All systems reviewed & are unremarkable except as noted in HPI & below Physical Exam Physical Exam: General: no distress Eyes: normal inspection, PERLL Respiratory: chest non tender, clear to auscultation, normal breath sounds, no respiratory distress, no accessory muscle use Cardiac: regular rate and rhythm, no rub or gallop, no murmur, no edema, no jvd GI/: active bowel sounds, no abd pain or tenderness, soft, non distended Extremities: normal range of motion, normal strength, non tender Neuro/Psych: alert and oriented x 3, normal mood and affect Skin: normal color, dry Results & Data Vital Signs (Past 12 Hours) Vital Signs Temp Pulse Resp BP BP Pulse Ox 02/16/19 10:49 36.4 C L 60 18 110/64 94 02/16/19 07:23 36.5 C 62 17 126/72 96 02/16/19 04:00 36.4 C L 60 18 122/70 99 PG Care Time/CCT Total # of Minutes Spent Total Time Spent with Patient: Total time spent is greater than 50% in coordination of care (as documented) at patient's floor/unit and/or counseling patient: (1) Acute renal failure Acute renal failure type: unspecified Qualified Code(s): N17.9 - Acute kidney failure, unspecified (2) COPD (chronic obstructive pulmonary disease) COPD type: unspecified COPD Qualified Code(s): J44.9 - Chronic obstructive pulmonary disease, unspecified (3) Congestive heart failure Heart failure chronicity: acute Heart failure type: systolic Qualified Code(s): I50.21 - Acute systolic (congestive) heart failure
--- NOTE | 2019-02-16 14:06 | Pharmacy Report ---
Glycemic Control Consultation - Date of Service February 16, 2019 - Scope Scope: Glycemic Pharmacist consulted by Amparo MADRID on 02/15/19 for glycemic control and to write orders per [facility] inpatient glycemic control protocol - Objective Weight: 133.6 kg Accuchecks BSG (last 24hrs): 02/15/19 02/15/19 02/15/19 16:10 17:56 19:30 Glucose 203 H POC Glucose 245 H 183 H 02/16/19 02/16/19 02/16/19 00:09 04:05 06:19 Glucose 124 H POC Glucose 159 H 144 H 02/16/19 02/16/19 07:42 11:44 Glucose POC Glucose 121 H 115 H Laboratory Data (last 24hrs): 02/15/19 02/16/19 17:56 06:19 Potassium 5.8 H 5.6 H Carbon Dioxide 22 22 Anion Gap 10.0 10.0 Creatinine 4.96 H* 4.90 H* Est Cr Clr Drug Dosing 18.5 18.7 HbA1c: Hemoglobin A1c 6.6 % (4.5-5.6) H 02/16/19 06:19 - Recent Pertinent Medications Outpatient Anti-diabetic Regimen: * Glipizide 10mg PO QAM The patient is currently receiving: * Basal insulin: Lantus 20 units S x 1 dose 02/15/19 PM * Correctional Insulin: Novolog Correction per scale ACHS Goal Range: Low 120 mg/dL - High 160 mg/dL Correction Factor: 25 mg/dL/unit * Prandial insulin: Per carb ratio of 1 unit per -- grams CHO consumed * Oral Agents: on hold for admission - Assessment & Plan Assessment & Plan: ASSESSMENT: * 68yo T2DM male with adequate degree of outpatient control per recent A1c * Pt is maintained on glipizide as an outpatient - will hold for admission secondary to ADA recs and ARF--> HAWKINS can lead to longstanding hypoglycemia with ARF. * Low stress/weight based SQ basal bolus insulin regimen initiated last evening for moderate hyperglycemia on admission. * Pt with minimal risk factors for insulin resistance other than prednisone (pt NPO, ARF, HAWKINS on board {last dose was 02/15/19}). * weight based NPH dose may be needed o cover steroid induced hyperglycemia secondary to once daily prednisone {NPH held today d/t NPO status} * Basal insulin may not be needed based on A1c * Will continue with bolus insulin --> increase frequency jasmina Q4hrs since no basal given today. PLAN FOR INPATIENT GLYCEMIC CONTROL: * Hold outpatient oral diabetes medications * Basal insulin * HOLD this morning secondary to NPO, ARF, etc. Pt received 20 units of Lantus 02/15/19 PM and therefore will still have basal insulin on board until this evening * Bolus insulin: weight based NovoLog scale * NovoLog per scale --> increase frequency/coverage to Q4hrs since basal held today * Goal Range: Low 110 mg/dL - High 140 mg/dL {more stringent target used for tight outpatient glycemic control} * Correction Factor: 25 mg/dL/unit * Nutritional / Prandial insulin per carb ratio of 1 unit per 8 grams CHO consumed * Please note that the plan above was derived based on current level of insulin resistance and hospital stress. These recommendations are appropriate for inpatient admission only. Plan of care upon discharge will need to be reassessed to avoid potential outpatient hypo/hyperglycemia. Thank you.
--- NOTE | 2019-02-16 20:48 | Ultrasound Report ---
US renal/blad retro comp HISTORY: Renal insufficiency CANDACE COMPARISON: None. FINDINGS: Right kidney: Maximum dimension 10 cm. Considerable cortical thinning. No evidence for hydronephrosis . Left kidney: Maximum dimension 10.7 cm. Considerable cortical thinning. No evidence for hydronephros is. Bladder: Prior cystectomy IMPRESSION: 1. Considerable cortical thinning of the kidneys bilaterally. 2. Mild generalized renal atrophy bilaterally. 3. No evidence for hydronephrosis. 4. Prior cystectomy The above report was generated using voice recognition software. It may contain grammatical, syntax or spelling errors. Electronically signed by: Armen Fierro M.D. 02/16/2019 8:47 PM
[2019-02-16] MEDS: TRAZODONE HCL 50 MG TAB PO SCH (21:12)
[2019-02-16] MEDS: ATORVASTATIN 40 MG TAB PO SCH (21:13)
[2019-02-16] MEDS: PARoxetine HCl CONTROLLED REL 12.5 MG TABCR PO SCH (21:16)
[2019-02-17] MEDS: INSULIN ASPART 100 UNITS/ML 3 ML PEN SC SCH ×6 (00:24→21:04)
[2019-02-17] MEDS: clonazePAM 1 MG TAB PO PRN ×2 (01:58→23:20)
[2019-02-17 06:36] LABS: Hematocrit (blood only) 30.6 % (42-52); Hemoglobin 9.9 g/dL (14.0-18.0); Mean Corpuscular Hemoglobin 31.4 pg (25-34); Mean Corpuscular Hgb Conc 32.4 g/dL (32-36); Mean Corpuscular Volume 97.1 fL (80-100); Mean Platelet Volume 11.7 fL (7.4-10.4); Nucleated RBC # (auto) 0.05 K/uL (0-0); Nucleated RBC % (auto) 0.4 %; Platelet Count 162 K/uL (130-400); RDW Coefficient of Variation 15.9 % (11.5-14.5); Red Blood Count 3.15 M/uL (4.7-6.1); White Blood Count 12.27 K/uL (4.8-10.8)
--- NOTE | 2019-02-17 07:20 | XRay Report ---
XR chest 1V portable CLINICAL HISTORY: CHF COMPARISON STUDY: 02/15/2019 FINDINGS: The heart remains enlarged. There is a left subclavian dual-chamber central venous pacemake r present. Mild vascular congestion is suspected. Interstitial markings may be accentuated due to the patient's large body habitus. There is no lobar consolidation. There are no large pleural effusions[ IMPRESSION: Cardiomegaly and suspected mild pulmonary vascular congestion. Electronically signed by: Rafa Durant M.D. 02/17/2019 7:18 AM
[2019-02-17 07:25] LABS: BUN Creatinine Ratio 24.4 (10-20); Calcium 8.2 mg/dl (8.5-10.1); Creatinine Clr Calc Pharmacy 17.2 ml/min; Est GFR (African American) 11.6; Potassium 5.4 mmol/L (3.5-5.1)
[2019-02-17] MEDS: TIOTROPIUM BROMIDE 5 PUFF/90 MCG INH INH SCH (08:01)
[2019-02-17] MEDS: BUDESONIDE/FORMOTEROL FUMARATE 160/4.5 60 PUFFS/INHALER INH SCH ×2 (08:02→21:03)
[2019-02-17] MEDS: GABAPENTIN 600 MG TAB PO SCH (08:03)
[2019-02-17] MEDS: allopurinoL 100 MG TAB PO SCH (08:03)
[2019-02-17] MEDS: AMLODIPINE BESYLATE 5 MG TAB PO SCH (08:03)
[2019-02-17] MEDS: DOXYCYCLINE HYCLATE 100 MG CAP PO SCH ×2 (08:04→21:03)
[2019-02-17] MEDS: THIAMINE HCL 100 MG TAB PO SCH (08:04)
[2019-02-17] MEDS: CHOLECALCIFEROL 1,000 UNITS TAB PO SCH (08:04)
[2019-02-17] MEDS: APIXABAN 5 MG TABLET PO SCH ×2 (08:04→21:01)
[2019-02-17] MEDS: CYANOCOBALAMIN 500 MCG TABLET (VITAMIN B-12) PO SCH (08:04)
[2019-02-17] MEDS: METOPROLOL TARTRATE 100 MG TAB PO SCH ×2 (08:05→21:03)
[2019-02-17] MEDS: predniSONE 20 MG TAB PO SCH (08:05)
[2019-02-17] MEDS: CEROVITE ADV FORMULA TAB PO SCH (08:05)
[2019-02-17] MEDS: PANTOprazole 40 MG TAB PO SCH (08:05)
[2019-02-17] MEDS: ASPIRIN 81 MG ECTAB PO SCH (08:05)
[2019-02-17] MEDS: ISOSORBIDE MONO EXTENDED REL 30 MG TABCR PO SCH (08:05)
[2019-02-17] MEDS ORDERED: INSULIN GLARGINE SOLOSTAR 100 UNITS/ML 3 ML PEN SC ONE (09:00)
--- NOTE | 2019-02-17 09:27 | Pharmacy Report ---
Pharmacy Glycemic Short Note 2 - Date of Service February 17, 2019 - Glycemic Short BSG Results (Last 24 hours): 02/16/19 02/16/19 02/16/19 11:44 16:24 20:16 Glucose POC Glucose 115 H 174 H 190 H 02/17/19 02/17/19 02/17/19 00:21 04:42 06:13 Glucose 140 H POC Glucose 179 H 148 H 02/17/19 07:16 Glucose POC Glucose 138 H ASSESSMENT: 02/17: * Patient received 16 units of insulin yesterday, no basal had been ordered as still on board from day prior (20 units 02/15 evening) * Fasting BSG this AM 140 mg/dL - Will continue with basal insulin as patient still receiving prednisone 60 mg daily, will decrease dose slightly to 15 units x 1 today due to concern for increasing Scr * BSGs yesterday trending up 115, 174, 190 mg/dL - patient starting to eat more - will tighten CR slightly today 02/16: * 68yo T2DM male with adequate degree of outpatient control per recent A1c * Pt is maintained on glipizide as an outpatient - will hold for admission secondary to ADA recs and ARF--> HAWKINS can lead to longstanding hypoglycemia with ARF. * Low stress/weight based SQ basal bolus insulin regimen initiated last evening for moderate hyperglycemia on admission. * Pt with minimal risk factors for insulin resistance other than prednisone (pt NPO, ARF, HAWKINS on board {last dose was 02/15/19}). * weight based NPH dose may be needed o cover steroid induced hyperglycemia secondary to once daily prednisone {NPH held today d/t NPO status} * Basal insulin may not be needed based on A1c * Will continue with bolus insulin --> increase frequency jasmina Q4hrs since no basal given today. PLAN FOR INPATIENT GLYCEMIC CONTROL: * Hold outpatient oral diabetes medications * Basal insulin * 15 units x 1 * Bolus insulin: tighten CR * NovoLog per scale ACHS * Goal Range: Low 110 mg/dL - High 140 mg/dL {more stringent target used for tight outpatient glycemic control} * Correction Factor: 25 mg/dL/unit * Nutritional / Prandial insulin per carb ratio of 1 unit per 7 grams CHO consumed * Please note that the plan above was derived based on current level of insulin resistance and hospital stress. These recommendations are appropriate for inpatient admission only. Plan of care upon discharge will need to be reassessed to avoid potential outpatient hypo/hyperglycemia.
--- NOTE | 2019-02-17 09:43 | Nephrology Progress Note ---
Date of Service February 17, 2019 Assessment & Plan (1) Acute renal failure: -- Difficult physical exam due to body habitus. Clinically suspect CANDACE related to intravascular volume contraction associated w/ diuretic use -- Benign urine sediment -- FeNa < 1%, CXR without overt edema, echocardiogram w/ normal IVC (not dilated to suggest volume overload) -- Renal US negative for obstruction -- Continue to hold Furosemide and Lisinopril -- Will provide gentle hydration -- Recheck PRP, CXR in am (2) CKD (chronic kidney disease), stage III: -- Baseline creatinine ~ 1.8 (3) Acute hyperkalemia: -- Potassium is improved -- KCL supplement has been stopped -- Continue low potassium diet (4) CHF (congestive heart failure): -- Echocardiogram 02/16/19: [id number] - 60% w/ normal IVC. No significant valvular abnormality (5) Altered mental status: -- Recommend ABG to check for CO2 retention -- Recommend stopping Gabapentin due to CANDACE -- Recommend reducing or holding all nonessential medications that may impair cognition: Ese Johns Paxil Subjective Mr. Pierce was seen and examined in his hospital room this morning. He was off BiPAP and lethargic but would awaken to voice. He had no medical concerns Review of Systems Review of Systems: Unobtainable due to cognitive status Physical Exam Constitutional: + obese and + lethargic; not in distress Eyes: PERRL, conjunctivae normal, anicteric sclerae ENMT: external ear and nose normal, oropharynx normal Neck: trachea midline, no thyromegaly Respiratory: normal respiratory effort Auscultation: + crackles (anteriorly) Cardiovascular: Rate/Rhythm: regular rate Extremities: + edema (2+ LE edema) Gastrointestinal (Abdomen): normal bowel sounds, soft, nontender, no hepatosplenomegaly Musculoskeletal: Extremities: no cyanosis Skin: no rashes, warm and dry Neurologic: awake; not confused Results & Data Vital Signs (Past 12 Hours) Vital Signs Temp Pulse Pulse Resp BP BP Pulse Ox 02/17/19 07:18 36.4 C L 62 20 103/59 L 98 02/17/19 03:33 36.7 C 60 20 123/60 94 02/17/19 00:00 61 02/16/19 23:21 36.5 C 64 22 109/56 L 91 PG Care Time/CCT Total # of Minutes Spent Total Time Spent with Patient: Total time spent is greater than 50% in coordination of care (as documented) at patient's floor/unit and/or counseling patient: (1) Acute renal failure Acute renal failure type: unspecified Qualified Code(s): N17.9 - Acute kidney failure, unspecified (2) CHF (congestive heart failure) Heart failure chronicity: unspecified Heart failure type: unspecified Qualified Code(s): I50.9 - Heart failure, unspecified
[2019-02-17] MEDS: SODIUM CHLORIDE 0.9% 1000ML 1,000 ML IV SCH ×2 (10:30→22:41)
--- NOTE | 2019-02-17 13:11 | Hospitalist Progress Note ---
Date of Service February 17, 2019 Assessment & Plan (1) Acute renal failure: Creatinine 4.77 on admission with hyperkalemia - creatinine trending up to 5.3 today Hold furosemide, lisinopril FeNa < 1% Renal US negative for obstruction Consulted nephrology - they recommend gentle hydration (2) Acute hyperkalemia: Given dextrose and insulin in ED Kayexalate x 3 so far this admission with potassium trending down follow prp follow on heart monitor hold po potassium Low potassium diet (3) COPD (chronic obstructive pulmonary disease): with recent exacerbation Continue doxycycline/prednisone regimen started in ED 02/13 (4) Paroxysmal atrial fibrillation: Continue apixaban, metoprolol (5) Type 2 diabetes mellitus without complication: hold home glipizide glycemic pharmacist consult (6) Congestive heart failure: Chronic diastolic heart failure BNP over 9,000 CXR showing slight improvement of the patient's congestive failure/pulmonary edema but congestion persists Lower extremity edema Hold diuretics as above for now, consulted nephrology for assistance on fluid balance Echo with EF 55% Consult cardiology Patient will need closer monitoring of his fluid balance upon discharge. Thus far there was some difficulty with coverage for heart failure clinic with the [place]. Will see if we can obtain referral after discharge for better monitoring. (7) Hyperlipidemia: continue statin (8) Hypertension: continue metoprolol, amlodipine, hold lisinopril (9) Thiamine deficiency: continue thiamine supplementation (10) Depression: continue paroxetine, trazodone (11) Morbid obesity: diet and exercise counseling (12) Coronary artery disease: continue atorvastatin, asa, isosorbide (13) DVT prophylaxis: Apixaban, SCDs Subjective Mr. Pierce was somewhat drowsy today, reported feeling confused. He denies any other discomforts. Review of Systems Review of Systems: All systems reviewed & are unremarkable except as noted in HPI & below Physical Exam Physical Exam: General: no distress Eyes: normal inspection, PERLL Respiratory: chest non tender, clear to auscultation, normal breath sounds, no respiratory distress, no accessory muscle use Cardiac: regular rate and rhythm, no rub or gallop, no murmur, no edema, no jvd GI/: active bowel sounds, no abd pain or tenderness, soft, non distended Extremities: normal range of motion, generalized weakness, non tender Neuro/Psych: alert and oriented x 2, normal mood and affect, CN II - XII intact Skin: normal color, dry Results & Data Vital Signs (Past 12 Hours) Vital Signs Temp Pulse Resp BP BP Pulse Ox 02/17/19 11:08 36.4 C L 64 18 116/62 96 02/17/19 07:18 36.4 C L 62 20 103/59 L 98 02/17/19 03:33 36.7 C 60 20 123/60 94 PG Care Time/CCT Total # of Minutes Spent Total Time Spent with Patient: Total time spent is greater than 50% in coordination of care (as documented) at patient's floor/unit and/or counseling patient: (1) Acute renal failure Acute renal failure type: unspecified Qualified Code(s): N17.9 - Acute kidney failure, unspecified (2) Congestive heart failure Heart failure chronicity: acute Heart failure type: systolic Qualified Code(s): I50.21 - Acute systolic (congestive) heart failure (3) COPD (chronic obstructive pulmonary disease) COPD type: unspecified COPD Qualified Code(s): J44.9 - Chronic obstructive pulmonary disease, unspecified
--- NOTE | 2019-02-17 15:28 | Cardiology Consultation ---
Date of Consultation February 17, 2019 Assessment & Plan (1) CHF exacerbation: CHF with preserved EF Echo (02/16): left ventricular systolic function normal, no regional wall motion abnormalities, mild concentric LVH, EF 55-60%, mild mitral regurgitation, mild tricuspid regurgitation, findings similar to ECHO on 02/16/2018. BNP >9000. Wt. up 6 kg from dry weight, likely volume overloaded. Intake 1058 output 900 balance 158. - continue strict I's and O's - in setting of stage III CKD with: cr. 4.77 (02/15), 4.9 (02/16), 5.3 (02/17) - defer initiation of diuretic per Dr. Carter (2) CAD (coronary artery disease), [place] coronary artery: Extensive family history, CAD MILLICENT placed in proximal RCA (2012) - no regional wall motion abnormalities noted on ECHO (02/16) - continue Atorvastatin 80 mg, ASA 81 mg, isosorbide 30 mg History of Present Illness Attending Physician: MD Lew Mr. Pierce is a 68 yo M w/ COPD, DM II, Urostomy , CAD, A fib., pacemaker (2011), HFpEF (EF 55% - 02/16/2019). Admitted for shortness of breath, confusion. Prior Lasix dose is 80 mg in the morning and 40 mg in the afternoon. Dry weight is 127 kg.,. Normal diet consists of: eggs and toast or yogurt for breakfast, lunch is usually a sandwich, dinner is usually out. Trying to keep sodium intake to less than 1500 mg.. PCP: Ariela GONZALES in [place] Cardiac surgeries: 2011 in [place]: dual chamber pacemaker 2012 in [facility]: MILLICENT placed 2013 pericardial window Family Hx.: Father [place] 62 Mother [place] 65 Brother [place] 49 Brother [place] 56 Brother alive has had an [place] Social Hx.: Tobacco: 80 ppy hx. quit in 2000 ETOH: none, previously a social drinker Rec. Drugs: none Allergies Allergy/AdvReac Type Severity Reaction Status Date / Time codeine AdvReac Mild "trips me Verified 02/12/19 23:47 out" promethazine AdvReac Unknown UNCONTROLLED Verified 02/12/19 23:47 MUSCLE MOVEMENTS Home Medications Home Medications Medication Instructions Recorded Confirmed Type allopurinol 300 mg PO QAM 02/05/18 02/15/19 History aspirin [Aspir-81] 81 mg PO QAM 02/05/18 02/15/19 History atorvastatin 80 mg PO HS 02/05/18 02/15/19 History buspirone 20 mg PO BID 02/05/18 02/15/19 History furosemide 40 mg PO AMHS 02/05/18 02/15/19 History loratadine [Claritin] 10 mg PO QAM 02/05/18 02/15/19 History melatonin 10 mg PO HS 02/05/18 02/15/19 History nitroglycerin 0.3 mg SUBLINGUAL DIRECTED PRN 02/05/18 02/15/19 History pantoprazole 40 mg PO QAM 02/05/18 02/15/19 History PreserVision AREDS-2 1 tab PO QAM 02/16/18 02/15/19 History cholecalciferol (vitamin D3) 2,000 unit PO QAM 02/16/18 02/15/19 History [Vitamin D3] clonazepam [Klonopin] 0.5 mg PO DAILY PRN 02/16/18 02/15/19 History cyanocobalamin (vitamin B-12) 1,000 mcg PO QAM 02/16/18 02/15/19 History [Vitamin B-12] paroxetine HCl [Paxil CR] 45 mg PO HS 02/16/18 02/15/19 History trazodone 150 mg PO HS 02/16/18 02/15/19 History metoprolol tartrate 100 mg PO BID #60 tab 02/19/18 02/15/19 Rx hydralazine 25 mg PO TID 05/15/18 02/15/19 History potassium chloride 10 meq PO QAM 09/28/18 02/15/19 History thiamine HCl (vitamin B1) 100 mg 100 mg PO QAM tab 12/22/18 02/15/19 History tablet amlodipine 10 mg PO QAM 01/04/19 02/15/19 History albuterol sulfate 2 puff INHALATION Q4H PRN 02/12/19 02/15/19 History apixaban 5 mg PO BID 02/12/19 02/15/19 History budesonide-formoterol 2 puff INHALATION BID 02/12/19 02/15/19 History fluticasone propionate 1 spray INTRANASAL DAILY PRN 02/12/19 02/15/19 History gabapentin 600 mg PO BID 02/12/19 02/15/19 History hydrophilic cream 1 applic TOPICAL DAILY PRN 02/12/19 02/15/19 History isosorbide mononitrate 30 mg PO QAM 02/12/19 02/15/19 History lisinopril 2.5 mg PO QAM 02/12/19 02/15/19 History docusate sodium 100 mg PO DAILY PRN 02/13/19 02/15/19 History tiotropium bromide 1 cap INHALATION QAM 02/13/19 02/15/19 History glipizide 10 mg PO QAM 02/15/19 02/15/19 History prednisone 60 mg PO QAM 02/15/19 02/15/19 History Patient History Medical History Type 2 diabetes mellitus without complication Recurrent UTI Paroxysmal atrial fibrillation Morbid obesity Essential hypertension CKD (chronic kidney disease), stage III CAD (coronary artery disease), [place] coronary artery Acute on chronic renal insufficiency Chronic obstructive pulmonary disease (Chronic) Sleep apnea (Chronic) CPAP Congestive heart failure (Resolved) Hyperlipidemia (Chronic) Hypertension (Chronic) Atrial fibrillation (Chronic) Pacemaker (Chronic) 2011 IMPLANTED FOR A-FIB Stroke (Resolved) CT SCAN NOVEMBER 2017 SHOWED EVIDENCE OF AN OLD STROKE ? EXACT DATE NOVEMBER 2017 SLURRED SPEECH/LEFT FOOT WEAKNESS CURRENTLY STILL HAS WEAKNESS IN LEFT SIDE/REHAB AFTER HOSPITALIZATION AWAITING TO HEAR BACK FOR GI OFFICE IF SURGEON OK WITH PT REMAINING ON BLOOD THINNER. Transient ischemic attack (TIA) (Resolved) Anxiety (Chronic) Depression (Chronic) Post traumatic stress disorder (Chronic) Macular degeneration (Chronic) Cancer (Resolved) BLADDER PROSTATE GERD (gastroesophageal reflux disease) (Chronic) Hiatal hernia (Chronic) Chronic kidney disease (Chronic) STAGE ? Osteoarthritis (Chronic) Gout (Chronic) Chronic back pain (Chronic) Peripheral neuropathy (Chronic) Diabetes mellitus, type 2 (Chronic) Coronary arteriosclerosis (Chronic) Depression with anxiety (Chronic) stable-continue Paxil and trazodone Thiamine deficiency (Chronic) Acute exacerbation of chronic obstructive pulmonary disease (COPD) (Resolved) Acute respiratory failure with hypoxia (Resolved) Cardiac pacemaker in situ (Resolved) Diabetes mellitus with hyperglycemia, without long-term current use of insulin (Resolved) increase insulin sliding scale and added Lantus 10 units daily -check HgbA1C HTN (hypertension), benign (Resolved) MJ on CPAP (Resolved) Paroxysmal atrial fibrillation (Resolved) Acute kidney injury Acute on chronic diastolic (congestive) heart failure Constipation Gout continue allopurinol for prophylaxis History of CVA (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 Hypomagnesemia Peripheral edema Surgical History History of cardiac cath (Resolved) STENT PLACED 2012 History of heart artery stent (Resolved) History of cataract surgery (Resolved) RT/LEFT History of tooth extraction (Resolved) History of cholecystectomy (Resolved) History of prostatectomy (Resolved) History of biopsy of bladder (Resolved) Presence of urostomy (Chronic) BLADDER REMOVED D/T CANCER STOMA REVISED History of laminectomy (Resolved) LUMBAR Pericardial disease (Resolved) PERICARDIAL WINDOW/[facility]CROSCOPIC ([facility]) 2014 History of urostomy Family History Other Family history non-contributory Social History Preferred Language: Yakut Communication Ability: Effective Election Supervisor Required: No Beliefs That Will Affect Care: None marital status: Current Living Situation: Spouse Current Living Situation Comment: pt and his live with their dtr current occupational status: retired Other Information That Helps Us Care for You: No Feels Safe at Home: Yes Safety Concerns: Feels Safe At This Time Smoking Status: Never smoker Do You Dip or Chew Tobacco: No ; Second Hand Exposure: No ; Tobacco Cessation Education Requested by Patient: No Hx Alcohol Use: No Hx Substance Use: No Review of Systems Constitutional: + chills and + fatigue; no fever Respiratory: + cough and + sputum production shortness of breath Cardiovascular: + edema (1+ pitting edema in lower extremity bilaterally); no palpitations Additional Comments: Some chest tightness not improved with nitro. Gastrointestinal: + constipation; no abdominal pain Physical Exam Constitutional: + obese Eyes: PERRL, conjunctivae normal, anicteric sclerae Respiratory: no cough - decreased breath sounds heard in all lobes - no focal findings - increased expiratory phase Cardiovascular: Rate/Rhythm: regular rate Heart Sounds: no gallop, no murmur and no cardiac rub Vessels: no JVD Extremities: normal capillary refill Gastrointestinal (Abdomen): normal bowel sounds, soft, nontender, no hepatosplenomegaly Skin: no rashes, warm and dry Psychiatric: Patient alert oriented to person and place, stated the date was 1997. Patient described people walking across the room and in the room who were not present Results & Data Vital Signs (Past 12 Hours) Vital Signs Temp Pulse Resp BP BP Pulse Ox 02/17/19 11:08 36.4 C L 64 18 116/62 96 02/17/19 07:18 36.4 C L 62 20 103/59 L 98 02/17/19 03:33 36.7 C 60 20 123/60 94 WBC: 12.27 H&H 9.9 & 30.6 Plt: 162 BNP: >9000 lytes: Na: 136, K: 5.4, Cl: 104, C02: 24, BUN: 130, Cr. 5.33 EKG: ventricularly paced at a rate of 60 Resident Activity Tracking Resident Involvement: Resident Care Provided Care Provided: Adult Hospital Medicine
--- NOTE | 2019-02-17 16:19 | Cardiology Consultation ---
Date of Consultation February 17, 2019 Assessment & Plan (1) Congestive heart failure: The patient appears to be volume overloaded by physical examination (pitting edema and rales). Furthermore, his weight is 14 lb over his typical dry weight as an outpatient. Unfortunately, his renal function continues to deteriorate. Diuretic management per Dr. Carter. (2) CAD (coronary artery disease), [place] coronary artery: The patient had a bare metal stent placed in the proximal RCA back in November 2012. He was noted have nonobstructive disease in the proximal LAD and proximal RCA. Continue medical management. (3) Atrial fibrillation: Suspect the patient's atrial fibrillation is permanent. Would suggest decreasing the dose of Eliquis down a 2.5 mg b.i.d. realizing his renal insufficiency. (4) Pacemaker: The patient has a dual-chamber Medtronic device which was placed back in 2011. He has yearly checks performed to the CT system, and follows with [facility] at home. History of Present Illness Attending Physician: Lemuel Rizo MD History of Present Illness Mr. Pierce is a 68-year-old male admitted on February 15 with acute renal failure and volume overload. This consultations was ordered to assist in his cardiac management. The patient is usual state of health until approximately 2 weeks prior to presentation. He began to complain weakness and suffered several falls. He was also demonstrating some confusion gained a total of 15 lb over that time frame. The patient carries a history of chronic diastolic CHF. He typically follows with the cardiology team from the [facility] system. The patient follows daily weights at home and notes a dry weight of approximately 280 lb. He typically administers furosemide 80 mg every morning and 40 mg every evening. Calculation of his current weight notes him to be 14 lb over his typical dry weight. The patient also carries a history of coronary artery disease. He had a bare metal stent placed in the proximal RCA at this institution in November 2012. Other disease included 20-30% proximal LAD, a 50% proximal RCA, and a culprit 95% mid RCA. Patient also carries a history of tachy/Octavio syndrome and had a Medtronic dual- chamber pacemaker placed in 2011. In 2013, patient had a pericardial window placed at the [facility]. Currently, patient is resting comfortably in bed without complaints. Past medical and surgical history 1. Coronary artery disease-see above 2. RCA BMS-November 2012 3. Chronic diastolic CHF 4. Hypertension 5. Hypercholesterolemia 6. Tachycardia/bradycardia syndrome 7. Dual-chamber pacemaker-2011 8. Pericardial window-2013 9. LVH 10. Diabetes mellitus 11. COPD 12. Chronic renal failure 13. History of CVA 14. GERD 15. Hiatal hernia 16. Prostate carcinoma 17. Bladder carcinoma 18. Prostatectomy 19. Cystectomy 20. Urostomy 21. Appendectomy 22. Obesity 23. Obstructive sleep apnea 24. Staggering calculus left kidney 25. Gout 26. PTSD 27. Lumbar laminectomy Social history and lives with his Retired from [employer] Quit tobacco 2000, 80 pack year history No alcohol Family history Father at 62 from an [place] Mother at 65 from 9 by Brother at 49 from an [place] Brother at 56 from an [place] Review of systems A 10 point review of systems was negative except for that described above. Allergies Allergy/AdvReac Type Severity Reaction Status Date / Time codeine AdvReac Mild "trips me Verified 02/12/19 23:47 out" promethazine AdvReac Unknown UNCONTROLLED Verified 02/12/19 23:47 MUSCLE MOVEMENTS Home Medications Home Medications Medication Instructions Recorded Confirmed Type allopurinol 300 mg PO QAM 02/05/18 02/15/19 History aspirin [Aspir-81] 81 mg PO QAM 02/05/18 02/15/19 History atorvastatin 80 mg PO HS 02/05/18 02/15/19 History buspirone 20 mg PO BID 02/05/18 02/15/19 History furosemide 40 mg PO [facility] 02/05/18 02/15/19 History loratadine [Claritin] 10 mg PO QAM 02/05/18 02/15/19 History melatonin 10 mg PO 02/05/18 02/15/19 History nitroglycerin 0.3 mg SUBLINGUAL DIRECTED PRN 02/05/18 02/15/19 History pantoprazole 40 mg PO QAM 02/05/18 02/15/19 History PreserVision AREDS-2 1 tab PO QAM 02/16/18 02/15/19 History cholecalciferol (vitamin D3) 2,000 unit PO QAM 02/16/18 02/15/19 History [Vitamin D3] clonazepam [Klonopin] 0.5 mg PO DAILY PRN 02/16/18 02/15/19 History cyanocobalamin (vitamin B-12) 1,000 mcg PO QAM 02/16/18 02/15/19 History [Vitamin B-12] paroxetine HCl [Paxil CR] 45 mg PO HS 02/16/18 02/15/19 History trazodone 150 mg PO HS 02/16/18 02/15/19 History metoprolol tartrate 100 mg PO BID #60 tab 02/19/18 02/15/19 Rx hydralazine 25 mg PO TID 05/15/18 02/15/19 History potassium chloride 10 meq PO QAM 09/28/18 02/15/19 History thiamine HCl (vitamin B1) 100 mg 100 mg PO QAM tab 12/22/18 02/15/19 History tablet amlodipine 10 mg PO QAM 01/04/19 02/15/19 History albuterol sulfate 2 puff INHALATION Q4H PRN 02/12/19 02/15/19 History apixaban 5 mg PO BID 02/12/19 02/15/19 History budesonide-formoterol 2 puff INHALATION BID 02/12/19 02/15/19 History fluticasone propionate 1 spray INTRANASAL DAILY PRN 02/12/19 02/15/19 History gabapentin 600 mg PO BID 02/12/19 02/15/19 History hydrophilic cream 1 applic TOPICAL DAILY PRN 02/12/19 02/15/19 History isosorbide mononitrate 30 mg PO QAM 02/12/19 02/15/19 History lisinopril 2.5 mg PO QAM 02/12/19 02/15/19 History docusate sodium 100 mg PO DAILY PRN 02/13/19 02/15/19 History tiotropium bromide 1 cap INHALATION QAM 02/13/19 02/15/19 History glipizide 10 mg PO QAM 02/15/19 02/15/19 History prednisone 60 mg PO QAM 02/15/19 02/15/19 History Patient History Medical History Type 2 diabetes mellitus without complication Recurrent UTI Paroxysmal atrial fibrillation Morbid obesity Essential hypertension CKD (chronic kidney disease), stage III CAD (coronary artery disease), [place] coronary artery Acute on chronic renal insufficiency Chronic obstructive pulmonary disease (Chronic) Sleep apnea (Chronic) CPAP Congestive heart failure (Resolved) Hyperlipidemia (Chronic) Hypertension (Chronic) Atrial fibrillation (Chronic) Pacemaker (Chronic) 2011 IMPLANTED FOR A-FIB Stroke (Resolved) CT SCAN NOVEMBER 2017 SHOWED EVIDENCE OF AN OLD STROKE ? EXACT DATE NOVEMBER 2017 SLURRED SPEECH/LEFT FOOT WEAKNESS CURRENTLY STILL HAS WEAKNESS IN LEFT SIDE/REHAB AFTER HOSPITALIZATION AWAITING TO HEAR BACK FOR GI OFFICE IF SURGEON OK WITH PT REMAINING ON BLOOD THINNER. Transient ischemic attack (TIA) (Resolved) Anxiety (Chronic) Depression (Chronic) Post traumatic stress disorder (Chronic) Macular degeneration (Chronic) Cancer (Resolved) BLADDER PROSTATE GERD (gastroesophageal reflux disease) (Chronic) Hiatal hernia (Chronic) Chronic kidney disease (Chronic) STAGE ? Osteoarthritis (Chronic) Gout (Chronic) Chronic back pain (Chronic) Peripheral neuropathy (Chronic) Diabetes mellitus, type 2 (Chronic) Coronary arteriosclerosis (Chronic) Depression with anxiety (Chronic) stable-continue Paxil and trazodone Thiamine deficiency (Chronic) Acute exacerbation of chronic obstructive pulmonary disease (COPD) (Resolved) Acute respiratory failure with hypoxia (Resolved) Cardiac pacemaker in situ (Resolved) Diabetes mellitus with hyperglycemia, without long-term current use of insulin (Resolved) increase insulin sliding scale and added Lantus 10 units daily -check HgbA1C HTN (hypertension), benign (Resolved) MJ on CPAP (Resolved) Paroxysmal atrial fibrillation (Resolved) Acute kidney injury Acute on chronic diastolic (congestive) heart failure Constipation Gout continue allopurinol for prophylaxis History of CVA (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 Hypomagnesemia Peripheral edema Surgical History History of cardiac cath (Resolved) STENT PLACED 2011 History of heart artery stent (Resolved) History of cataract surgery (Resolved) RT/LEFT History of tooth extraction (Resolved) History of cholecystectomy (Resolved) History of prostatectomy (Resolved) History of biopsy of bladder (Resolved) Presence of urostomy (Chronic) BLADDER REMOVED D/T CANCER STOMA REVISED History of laminectomy (Resolved) LUMBAR Pericardial disease (Resolved) PERICARD[facility] WINDOW[facility] 2014 History of urostomy Family History Other Family history non-contributory Social History Preferred Language: Grenadian Communication Ability: Effective Undercollar Baster Required: No Beliefs That Will Affect Care: None marital status: Current Living Situation: Spouse Current Living Situation Comment: pt and his live with their dtr current occupational status: retired Other Information That Helps Us Care for You: No Feels Safe at Home: Yes Safety Concerns: Feels Safe At This Time Smoking Status: Never smoker Do You Dip or Chew Tobacco: No ; Second Hand Exposure: No ; Tobacco Cessation Education Requested by Patient: No Hx Alcohol Use: No Hx Substance Use: No Physical Exam Physical Exam: In general this is an obese white male lying at 43 in bed without complaints. HEENT exam is negative. Neck is supple with full carotid upstrokes. No obvious bruits. Jugular venous pressure is difficult to assess. Cardiovascular exam reveals a regular rhythm with distant heart sounds. No obvious murmurs. Lungs note bibasilar rales. Abdomen is obese without bruits. Chest reveals a palpable pacemaker in the left subclavicular region. Extremities reveal 1+ pitting edema to the knees bilaterally. Results & Data Vital Signs (Past 12 Hours) Vital Signs Temp Pulse Resp BP BP Pulse Ox 02/17/19 15:33 36.3 C L 60 18 106/65 98 02/17/19 11:08 36.4 C L 64 18 116/62 96 02/17/19 07:18 36.4 C L 62 20 103/59 L 98 Laboratory Results CBC notes a hemoglobin of 9.9, hematocrit 30.6, white count 12.27, platelet count [id number]. Electrolytes and a sodium of 136, potassium 5.4, chloride 104, bicarb 24, BUN 130, and creatinine 5.33. BNP is elevated at 9413. Diagnostic Findings EKG notes atrial fibrillation and ventricular pacing. Chest x-ray notes cardiomegaly and a pacemaker in the left subclavicular region. PG Care Time/CCT Total # of Minutes Spent Total Time Spent with Patient: Total time spent is greater than 50% in coordination of care (as documented) at patient's floor/unit and/or counseling patient: (1) Congestive heart failure Heart failure chronicity: acute Heart failure type: systolic Qualified Code(s): I50.21 - Acute systolic (congestive) heart failure
[2019-02-17 16:28] LABS: Base Excess ABG -5.4 mEq/L (-9-1.8); HCO3 ABG 21 mmol/L (19-24); Oxygen Saturation ABG 83.8 % (90-95); PCO2 ABG 45 mmHg (35-46); PO2 ABG 54 mm/Hg (80-95); pH ABG 7.29 (7.35-7.45)
[2019-02-17 16:29] LABS: Allen Test POS (Pos)
--- NOTE | 2019-02-17 16:38 | XRay Report ---
XR KUB/Abdomen 1 view CLINICAL HISTORY: distended abdomen, constipation COMPARISON STUDY: 02/17/2016 FINDINGS: Mild increase in colonic fecal load. No evidence for small bowel distention. Stable postope rative changes to the pelvic sidewall regions. IMPRESSION: Increased colonic fecal loading consistent with fecal stasis. The above report was generated using voice recognition software. It may contain grammatical, syntax or spelling errors. Electronically signed by: Armen Fierro M.D. 02/17/2019 4:36 PM
--- NOTE | 2019-02-17 16:40 | CT Scan Report ---
CT head/brain wo con CT DOSE: 884.08 mGy.cm HISTORY: Mental status change altered mental status TECHNIQUE: Multiaxial CT images of the head were performed without the use of intravenous contrast. A dose lowering technique was utilized adhering to the principles of ALARA. Comparison: 08/06/2018 Findings: The paranasal sinuses and mastoid air cells are clear. The calvarium and skull base are int act. The ventricles and sulci are within normal limits. There is no mass, hematoma, midline shift, or acute infarct. Old left parietal infarct is unchanged. Mild age-related chronic small vessel change and atrophy. Impression: 1. Old left parietal infarct. 2. Age-related change. 3. No acute intracranial abnormality. The above report was generated using voice recognition software. It may contain grammatical, syntax or spelling errors. Electronically signed by: Armen Fierro M.D. 02/17/2019 4:39 PM
[2019-02-17] MEDS ORDERED: SOD PHOSPHATE/SOD BIPHOSPHATE ENEMA 132 ML BTL PR ONE (17:11)
[2019-02-17] MEDS: PARoxetine HCl CONTROLLED REL 12.5 MG TABCR PO SCH (21:02)
[2019-02-17] MEDS: ATORVASTATIN 40 MG TAB PO SCH (21:02)
[2019-02-18 06:42] LABS: Hematocrit (blood only) 31.3 % (42-52); Hemoglobin 10.2 g/dL (14.0-18.0); Mean Corpuscular Hemoglobin 31.2 pg (25-34); Mean Corpuscular Hgb Conc 32.6 g/dL (32-36); Mean Corpuscular Volume 95.7 fL (80-100); Nucleated RBC # (auto) 0.03 K/uL (0-0); Nucleated RBC % (auto) 0.4 %; Platelet Count 146 K/uL (130-400); RDW Coefficient of Variation 15.6 % (11.5-14.5); Red Blood Count 3.27 M/uL (4.7-6.1); White Blood Count 7.46 K/uL (4.8-10.8)
[2019-02-18 07:19] LABS: BUN Creatinine Ratio 26.1 (10-20); Calcium 7.9 mg/dl (8.5-10.1); Est GFR (African American) 12.2; Est GFR (Non-African American) 10.5; Potassium 4.9 mmol/L (3.5-5.1)
--- NOTE | 2019-02-18 07:29 | XRay Report ---
XR chest 1V portable CLINICAL HISTORY: CHF dyspnea COMPARISON STUDY: 02/17/2019 FINDINGS: Persistent cardiomegaly. Mild increase in prominence of the pulmonary vasculature. No well- defined focal infiltrate. Unchanged position of the bipolar cardiac pacemaker. IMPRESSION: Developing congestive heart failure. Some progressive compared to the prior study. The above report was generated using voice recognition software. It may contain grammatical, syntax or spelling errors. Electronically signed by: Armen Fierro M.D. 02/18/2019 7:27 AM
[2019-02-18] MEDS: INSULIN ASPART 100 UNITS/ML 3 ML PEN SC SCH ×4 (07:47→20:57)
[2019-02-18] MEDS: ASPIRIN 81 MG ECTAB PO SCH (09:41)
[2019-02-18] MEDS: LORATADINE 10 MG TAB PO SCH (09:41)
[2019-02-18] MEDS: APIXABAN 5 MG TABLET PO SCH ×2 (09:42→20:58)
[2019-02-18] MEDS: AMLODIPINE BESYLATE 5 MG TAB PO SCH (09:44)
[2019-02-18] MEDS: CEROVITE ADV FORMULA TAB PO SCH (09:44)
[2019-02-18] MEDS: ISOSORBIDE MONO EXTENDED REL 30 MG TABCR PO SCH (09:44)
[2019-02-18] MEDS: METOPROLOL TARTRATE 100 MG TAB PO SCH ×2 (09:44→20:59)
[2019-02-18] MEDS: PANTOprazole 40 MG TAB PO SCH (09:45)
[2019-02-18] MEDS: TIOTROPIUM BROMIDE 5 PUFF/90 MCG INH INH SCH (09:46)
[2019-02-18] MEDS: BUDESONIDE/FORMOTEROL FUMARATE 160/4.5 60 PUFFS/INHALER INH SCH ×2 (09:47→21:00)
--- NOTE | 2019-02-18 09:47 | Cardiology Progress Note ---
Date of Service February 18, 2019 Assessment & Plan (1) CHF exacerbation: The patient continues to appear volume overloaded (extremity edema rales). He also continues to gain weight. Minor improvement in his creatinine today. Diuretic in fluid management per Dr. Carter. (2) CAD (coronary artery disease), [place] coronary artery: The patient had a bare metal stent placed in the proximal RCA in November 2012. He was noted have nonobstructive disease in the proximal LAD and proximal RCA. Continue medical management. (3) Atrial fibrillation: The patient's atrial fibrillation appears to be permanent. Eliquis dose was adjusted yesterday realizing his renal insufficiency. (4) Pacemaker: The patient has a dual-chamber Medtronic pacemaker which was placed back in 2011. He follows with the [employer] system at home, a yearly checks at the [facility]. Subjective The patient is resting comfortably med without complaints of chest pain or dyspnea. He is anxious for hospital discharge. Physical Exam Physical Exam: In general this is an obese white male lying at 43 in bed without complaints. HEENT exam is negative. Neck is supple with full carotid upstrokes. No obvious bruits. Jugular venous pressure is difficult to assess. Cardiovascular exam reveals a regular rhythm with distant heart sounds. No obvious murmurs. Lungs note bibasilar rales. Abdomen is obese without bruits. Chest reveals a palpable pacemaker in the left subclavicular region. Extremities reveal 1+ pitting edema to the knees bilaterally. Results & Data Vital Signs (Past 12 Hours) Vital Signs Temp Pulse Pulse Resp BP BP Pulse Ox 02/18/19 08:03 36.5 C 61 20 146/74 H 98 02/18/19 04:08 36.6 C 65 20 112/65 96 02/18/19 00:00 61 02/17/19 23:15 36.7 C 71 22 130/66 95 Laboratory Results CBC notes a hemoglobin of 10.2, hematocrit 31.3, white count 7.46, platelet count 146 1000. Electrolytes notice sodium 137, potassium 4.9, chloride 104, bicarb 23, BUN 133, and creatinine 5.14. Diagnostic Findings nurse monitoring notes ventricular pacing. PG Care Time/CCT Total # of Minutes Spent Total Time Spent with Patient: Total time spent is greater than 50% in coordination of care (as documented) at patient's floor/unit and/or counseling patient:
[2019-02-18] MEDS: CYANOCOBALAMIN 500 MCG TABLET (VITAMIN B-12) PO SCH (09:48)
[2019-02-18] MEDS: allopurinoL 100 MG TAB PO SCH (09:48)
[2019-02-18] MEDS: THIAMINE HCL 100 MG TAB PO SCH (09:48)
[2019-02-18] MEDS: CHOLECALCIFEROL 1,000 UNITS TAB PO SCH (09:48)
--- NOTE | 2019-02-18 11:03 | Nephrology Progress Note ---
Date of Service February 18, 2019 Assessment & Plan (1) Acute renal failure: -- Difficult physical exam due to body habitus. Clinically suspect CANDACE related to intravascular volume contraction associated w/ diuretic use -- FeNa < 1%, CXR without overt edema, SaO2 97% on 2 L/NC, echocardiogram w/ normal IVC (not dilated to suggest volume overload), benign urine sediment -- Renal US negative for obstruction -- Continue to hold Furosemide and Lisinopril -- Minimal response to IV fluid bolus yesterday -- Discussed indications/benefits/risks/alternatives to THC insertion and HD w/ patient's today. She is familiar w/ dialysis and indicates that she and her have discussed it in the past. Mr. Pierce had previously stated that he would want dialysis if needed. Renal failure without significant improvement by medical management, severe azotemia and MS changes are indications to proceed. Will consult Vascular Surgery to place IJ THC. (2) CKD (chronic kidney disease), stage III: -- Baseline creatinine ~ 1.8 (3) Acute hyperkalemia: -- Potassium is improved -- KCL supplement has been stopped -- Continue low potassium diet (4) CHF (congestive heart failure): -- Echocardiogram 02/16/19: [id number] - 60% w/ normal IVC. No significant valvular abnormality (5) Altered mental status: -- ABG reviewed. Mild mixed respiratory/metabolic acidosis. Only mild CO2 retention -- Gabapentin stopped due to CANDACE -- Recommend reducing or holding all nonessential medications that may impair cognition: Desyrel, Buspar, Paxil Subjective Mr. Pierce was seen & examined in his hospital room this morning. His was present at bedside during my evaluation. Mr. Pierce was lethargic but would awaken to voice and follow one step commands. He is oriented to self only. Review of Systems Constitutional: + weakness; no fever and no chills Eyes: no worsening vision and no problem reported Ear, Nose, Mouth, Throat: no problem reported Respiratory: + dyspnea Cardiovascular: + edema; no chest pain and no palpitations Gastrointestinal: + diarrhea/loose stools; no abdominal pain, no nausea and no vomiting Genitourinary: no dysuria, no urinary hesitancy and no hematuria Musculoskeletal: no back pain Integumentary: no rash Neurologic: + confusion Physical Exam Constitutional: + obese and + lethargic; not in distress Eyes: PERRL, conjunctivae normal, anicteric sclerae ENMT: external ear and nose normal, oropharynx normal Neck: trachea midline, no thyromegaly Respiratory: normal respiratory effort Auscultation: + crackles (anteriorly) Cardiovascular: Rate/Rhythm: regular rate Extremities: + edema (2+ LE edema) Gastrointestinal (Abdomen): normal bowel sounds, soft, nontender, no hep atosplenomegaly Musculoskeletal: Extremities: no cyanosis Skin: no rashes, warm and dry Neurologic: awake; not confused Results & Data Vital Signs (Past 12 Hours) Vital Signs Temp Pulse Pulse Resp BP BP Pulse Ox 02/18/19 10:40 97 02/18/19 08:03 36.5 C 61 20 146/74 H 98 02/18/19 04:08 36.6 C 65 20 112/65 96 02/18/19 00:00 61 02/17/19 23:15 36.7 C 71 22 130/66 95 Laboratory Tests 02/17/19 02/17/19 02/18/19 06:13 06:13 06:02 WBC 12.27 H 7.46 Hgb 9.9 L 10.2 L Hct 30.6 L 31.3 L Plt Count 162 146 Sodium 136 Potassium 5.4 H Chloride 104 Carbon Dioxide 24 BUN 130 H Creatinine 5.33 H* D Glucose 140 H Calcium 8.2 L 02/18/19 06:02 WBC Hgb Hct Plt Count Sodium 137 Potassium 4.9 Chloride 104 Carbon Dioxide 23 BUN 133 H Creatinine 5.14 H* Glucose 135 H Calcium PG Care Time/CCT Total # of Minutes Spent Total Time Spent with Patient: Total time spent is greater than 50% in coordination of care (as documented) at patient's floor/unit and/or counseling patient: (1) Acute renal failure Acute renal failure type: unspecified Qualified Code(s): N17.9 - Acute kidney failure, unspecified (2) CHF (congestive heart failure) Heart failure chronicity: unspecified Heart failure type: unspecified Qualified Code(s): I50.9 - Heart failure, unspecified
--- NOTE | 2019-02-18 11:11 | Pharmacy Report ---
Pharmacy Glycemic Short Note 2 - Date of Service February 18, 2019 - Glycemic Short BSG Results (Last 24 hours): 02/17/19 02/17/19 02/17/19 11:11 16:46 20:22 Glucose POC Glucose 165 H 189 H 164 H 02/18/19 02/18/19 06:02 07:35 Glucose 135 H POC Glucose 129 H ASSESSMENT: * 68yo T2DM male with adequate degree of outpatient control per recent A1c * Pt is maintained on glipizide as an outpatient - will hold for admission secondary to ADA recs and ARF--> HAWKINS can lead to longstanding hypoglycemia with ARF. * Low stress/weight based SQ basal bolus insulin regimen initiated for moderate hyperglycemia on admission secondary to prednisone. * Pt with minimal risk factors for insulin resistance other than prednisone (pt NPO, ARF, HAWKINS on board {last dose was 02/15/19}). * last dose of prednisone was yesterday- further basal insulin may not be needed w/o steroids based on pt A1c. * Post-prandial BSGs slightly elevated yesterday but most likely d/t prednisone. Since prednisone dc will start to taper insulin regimen in accordance with step down in steroid dosing. PLAN FOR INPATIENT GLYCEMIC CONTROL: * Hold outpatient oral diabetes medications * Basal insulin * DC * Bolus insulin: loosen * NovoLog per scale ACHS * Goal Range: Low 110 mg/dL - High 140 mg/dL {more stringent target used for tight outpatient glycemic control} * Correction Factor: 30 mg/dL/unit * Nutritional / Prandial insulin per carb ratio of 1 unit per 9 grams CHO consumed * Please note that the plan above was derived based on current level of insulin resistance and hospital stress. These recommendations are appropriate for inpatient admission only. Plan of care upon discharge will need to be reassessed to avoid potential outpatient hypo/hyperglycemia.
--- NOTE | 2019-02-18 15:14 | Hospitalist Progress Note ---
Date of Service February 18, 2019 Assessment & Plan (1) Acute renal failure: Creatinine 4.77 on admission with hyperkalemia, creatinine peaked at 5.3 Hold furosemide, lisinopril FeNa < 1% Renal US negative for obstruction Consulted nephrology - patient will have permacath placed and undergo dialysis (2) Acute hyperkalemia: Resolve Given dextrose and insulin in ED Kayexalate x 3 so far this admission with potassium trending down follow on heart monitor hold po potassium Low potassium diet (3) COPD (chronic obstructive pulmonary disease): with recent exacerbation Continue doxycycline/prednisone regimen started in ED 02/13 (4) Paroxysmal atrial fibrillation: Continue apixaban, metoprolol (5) Type 2 diabetes mellitus without complication: hold home glipizide glycemic pharmacist consult (6) Congestive heart failure: Chronic diastolic heart failure BNP over 9,000 CXR showing slight improvement of the patient's congestive failure/pulmonary edema but congestion persists Lower extremity edema Hold diuretics as above Echo with EF 55% Consult cardiology and nephrology (7) Hyperlipidemia: continue statin (8) Hypertension: continue metoprolol, amlodipine, hold lisinopril (9) Metabolic encephalopathy: May be due to azotemia Only mild CO2 retention on ABG CT head wnl Ammonia wnl Hold gabapentin, buspar, trazadone, clonazepam - will leave paroxetine for now (10) Constipation: Xray showing fecal stasis Suppository, prn lactulose qid, miralax (11) Coronary artery disease: continue atorvastatin, asa, isosorbide (12) Morbid obesity: diet and exercise counseling (13) Thiamine deficiency: continue thiamine supplementation (14) Depression: continue paroxetine, hold trazodone for encephalopathy (15) DVT prophylaxis: Apixaban, SCDs Supervising Physician Co-Signing Physician Notes I supervised Laura Marquez NP on this patient's care. I examined the patient today independently of her. I discussed the plan of care with her with the plan being as written in her note except for any following changes/exceptions: None. Worsening kidney function despite IV fluids. Plan to place tunneled line tomorrow and initiate dialysis. Hopefully this will allow him to become more alert and less confused as this is the main concern his has. He is indeed somnolent and has trouble following conversation, though he does wake up easily and answer questions and follow commands. Subjective Mr. Pierce continues to be lethargic with some confusion. He denies any pain Review of Systems Review of Systems: All systems reviewed & are unremarkable except as noted in HPI & below Physical Exam Physical Exam: General: no distress Eyes: normal inspection, PERLL Respiratory: chest non tender, clear to auscultation, normal breath sounds, no respiratory distress, no accessory muscle use Cardiac: regular rate and rhythm, no rub or gallop, no murmur, no edema, no jvd GI/: active bowel sounds, no abd pain or tenderness, soft, distended Extremities: normal range of motion, normal strength, non tender Neuro/Psych: lethargic and oriented to person and place, normal mood and affect Skin: normal color, dry Results & Data Vital Signs (Past 12 Hours) Vital Signs Temp Pulse Pulse Pulse Resp BP Pulse Ox 02/18/19 15:06 60 02/18/19 15:02 36.3 C L 55 L 18 126/68 94 02/18/19 13:05 02/18/19 11:47 36.6 C 60 18 111/62 97 02/18/19 10:40 97 02/18/19 08:03 36.5 C 61 20 146/74 H 98 02/18/19 04:08 36.6 C 65 20 112/65 96 Pulse Ox 02/18/19 15:06 02/18/19 15:02 02/18/19 13:05 95 02/18/19 11:47 02/18/19 10:40 02/18/19 08:03 02/18/19 04:08 PG Care Time/CCT Total # of Minutes Spent Total Time Spent with Patient: Total time spent is greater than 50% in coordination of care (as documented) at patient's floor/unit and/or counseling patient: (1) Acute renal failure Acute renal failure type: unspecified Qualified Code(s): N17.9 - Acute kidney failure, unspecified (2) Congestive heart failure Heart failure chronicity: acute Heart failure type: systolic Qualified Code(s): I50.21 - Acute systolic (congestive) heart failure (3) COPD (chronic obstructive pulmonary disease) COPD type: unspecified COPD Qualified Code(s): J44.9 - Chronic obstructive pulmonary disease, unspecified
[2019-02-18] MEDS ORDERED: bisacodyL 10 MG SUPP PR ONE (15:30)
[2019-02-18] MEDS ORDERED: LACTULOSE SYRUP 30 GM/45 ML UDP PO PRN (18:49)
[2019-02-18] MEDS: ATORVASTATIN 40 MG TAB PO SCH (20:57)
[2019-02-18] MEDS: PARoxetine HCl CONTROLLED REL 12.5 MG TABCR PO SCH (21:00)
[2019-02-19 07:02] LABS: Hematocrit (blood only) 30.6 % (42-52); Hemoglobin 10.1 g/dL (14.0-18.0); Mean Corpuscular Hemoglobin 31.5 pg (25-34); Mean Corpuscular Volume 95.3 fL (80-100); Mean Platelet Volume 12.2 fL (7.4-10.4); Platelet Count 136 K/uL (130-400); RDW Coefficient of Variation 15.8 % (11.5-14.5); RDW Standard Deviation 55.4 fL (36.4-46.3); Red Blood Count 3.21 M/uL (4.7-6.1); White Blood Count 7.39 K/uL (4.8-10.8)
--- NOTE | 2019-02-19 07:37 | Consultation ---
Date of Consultation February 19, 2019 Assessment & Plan (1) Acute renal failure: Patient for insertion of permcath. Patient and family understand the risks options and benefits and both agree to the procedure. Acute renal failure type: unspecified Qualified Code(s): N17.9 - Acute kidney failure, unspecified History of Present Illness Reason for Consultation: Acute renal failure Attending Physician: Lemuel Rizo MD History of Present Illness Patient admitted with dehydration and acute renal failure. He now is in need of dialysis. Permcath was recommended. Allergies Allergy/AdvReac Type Severity Reaction Status Date / Time codeine AdvReac Mild "trips me Verified 02/12/19 23:47 out" promethazine AdvReac Unknown UNCONTROLLED Verified 02/12/19 23:47 MUSCLE MOVEMENTS Home Medications Home Medications Medication Instructions Recorded Confirmed Type allopurinol 300 mg PO QAM 02/05/18 02/15/19 History aspirin [Aspir-81] 81 mg PO QAM 02/05/18 02/15/19 History atorvastatin 80 mg PO HS 02/05/18 02/15/19 History buspirone 20 mg PO BID 02/05/18 02/15/19 History furosemide 40 mg PO AMHS 02/05/18 02/15/19 History loratadine [Claritin] 10 mg PO QAM 02/05/18 02/15/19 History melatonin 10 mg PO HS 02/05/18 02/15/19 History nitroglycerin 0.3 mg SUBLINGUAL DIRECTED PRN 02/05/18 02/15/19 History pantoprazole 40 mg PO QAM 02/05/18 02/15/19 History PreserVision AREDS-2 1 tab PO QAM 02/16/18 02/15/19 History cholecalciferol (vitamin D3) 2,000 unit PO QAM 02/16/18 02/15/19 History [Vitamin D3] clonazepam [Klonopin] 0.5 mg PO DAILY PRN 02/16/18 02/15/19 History cyanocobalamin (vitamin B-12) 1,000 mcg PO QAM 02/16/18 02/15/19 History [Vitamin B-12] paroxetine HCl [Paxil CR] 45 mg PO HS 02/16/18 02/15/19 History trazodone 150 mg PO HS 02/16/18 02/15/19 History metoprolol tartrate 100 mg PO BID #60 tab 02/19/18 02/15/19 Rx hydralazine 25 mg PO TID 05/15/18 02/15/19 History potassium chloride 10 meq PO QAM 09/28/18 02/15/19 History thiamine HCl (vitamin B1) 100 mg 100 mg PO QAM tab 12/22/18 02/15/19 History tablet amlodipine 10 mg PO QAM 01/04/19 02/15/19 History albuterol sulfate 2 puff INHALATION Q4H PRN 02/12/19 02/15/19 History apixaban 5 mg PO BID 02/12/19 02/15/19 History budesonide-formoterol 2 puff INHALATION BID 02/12/19 02/15/19 History fluticasone propionate 1 spray INTRANASAL DAILY PRN 02/12/19 02/15/19 History gabapentin 600 mg PO BID 02/12/19 02/15/19 History hydrophilic cream 1 applic TOPICAL DAILY PRN 02/12/19 02/15/19 History isosorbide mononitrate 30 mg PO QAM 02/12/19 02/15/19 History lisinopril 2.5 mg PO QAM 02/12/19 02/15/19 History docusate sodium 100 mg PO DAILY PRN 02/13/19 02/15/19 History tiotropium bromide 1 cap INHALATION QAM 02/13/19 02/15/19 History glipizide 10 mg PO QAM 02/15/19 02/15/19 History prednisone 60 mg PO QAM 02/15/19 02/15/19 History Patient History Medical History Type 2 diabetes mellitus without complication Recurrent UTI Paroxysmal atrial fibrillation Morbid obesity Essential hypertension CKD (chronic kidney disease), stage III CAD (coronary artery disease), [place] coronary artery Acute on chronic renal insufficiency Chronic obstructive pulmonary disease (Chronic) Sleep apnea (Chronic) CPAP Congestive heart failure (Resolved) Hyperlipidemia (Chronic) Hypertension (Chronic) Atrial fibrillation (Chronic) Pacemaker (Chronic) 2011 IMPLANTED FOR A-FIB Stroke (Resolved) CT SCAN NOVEMBER 2017 SHOWED EVIDENCE OF AN OLD STROKE ? EXACT DATE NOVEMBER 2017 SLURRED SPEECH/LEFT FOOT WEAKNESS CURRENTLY STILL HAS WEAKNESS IN LEFT SIDE/REHAB AFTER HOSPITALIZATION AWAITING TO HEAR BACK FOR GI OFFICE IF SURGEON OK WITH PT REMAINING ON BLOOD THINNER. Transient ischemic attack (TIA) (Resolved) Anxiety (Chronic) Depression (Chronic) Post traumatic stress disorder (Chronic) Macular degeneration (Chronic) Cancer (Resolved) BLADDER PROSTATE GERD (gastroesophageal reflux disease) (Chronic) Hiatal hernia (Chronic) Chronic kidney disease (Chronic) STAGE ? Osteoarthritis (Chronic) Gout (Chronic) Chronic back pain (Chronic) Peripheral neuropathy (Chronic) Diabetes mellitus, type 2 (Chronic) Coronary arteriosclerosis (Chronic) Depression with anxiety (Chronic) stable-continue Paxil and trazodone Thiamine deficiency (Chronic) Acute exacerbation of chronic obstructive pulmonary disease (COPD) (Resolved) Acute respiratory failure with hypoxia (Resolved) Cardiac pacemaker in situ (Resolved) Diabetes mellitus with hyperglycemia, without long-term current use of insulin (Resolved) increase insulin sliding scale and added Lantus 10 units daily -check HgbA1C HTN (hypertension), benign (Resolved) MJ on CPAP (Resolved) Paroxysmal atrial fibrillation (Resolved) Acute kidney injury Acute on chronic diastolic (congestive) heart failure Constipation Gout continue allopurinol for prophylaxis History of CVA (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 Hypomagnesemia Peripheral edema Surgical History History of cardiac cath (Resolved) STENT PLACED 2011 History of heart artery stent (Resolved) History of cataract surgery (Resolved) RT/LEFT History of tooth extraction (Resolved) History of cholecystectomy (Resolved) History of prostatectomy (Resolved) History of biopsy of bladder (Resolved) Presence of urostomy (Chronic) BLADDER REMOVED D/T CANCER STOMA REVISED History of laminectomy (Resolved) LUMBAR Pericardial disease (Resolved) PERICARDIAL WINDOW/MICROSCOPIC ([facility]) 2014 History of urostomy Family History Other Family history non-contributory Social History Preferred Language: Turkish Communication Ability: Effective Pasta Maker Required: No Beliefs That Will Affect Care: None marital status: Current Living Situation: Spouse Current Living Situation Comment: pt and his live with their dtr current occupational status: retired Other Information That Helps Us Care for You: No Feels Safe at Home: Yes Safety Concerns: Feels Safe At This Time Smoking Status: Never smoker Do You Dip or Chew Tobacco: No ; Second Hand Exposure: No ; Tobacco Cessation Education Requested by Patient: No Hx Alcohol Use: No Hx Substance Use: No Review of Systems Constitutional: + weakness Respiratory: + dyspnea Cardiovascular: + edema Gastrointestinal: + diarrhea/loose stools Psychiatric: + confusion Physical Exam Constitutional: + obese and + altered mental status; no acute distress Respiratory: normal respiratory effort; no respiratory distress Cardiovascular: Rate/Rhythm: regular rate and regular rhythm Gastrointestinal (Abdomen): Inspection/Auscultation: abdomen normal to inspection Percussion/Palpation: abdomen soft; abdomen nontender Neurologic: Motor/Sensory: normal movement Psychiatric: Orientation: alert and cooperative; + not oriented to place and + not oriented to time Results & Data Vital Signs (Past 12 Hours) Vital Signs Temp Pulse Pulse Resp BP Pulse Ox 02/19/19 07:14 36.5 C 59 L 20 121/69 95 02/19/19 04:57 36.8 C 60 18 150/64 H 96 02/18/19 23:22 36.4 C L 60 18 145/70 H 98 02/18/19 22:20 60 02/18/19 22:11 65 24 95
[2019-02-19 07:40] LABS: BUN Creatinine Ratio 27.6 (10-20); Calcium 8.2 mg/dl (8.5-10.1); Creatinine Clr Calc Pharmacy 18.4 ml/min; Est GFR (African American) 12.5; Est GFR (Non-African American) 10.8; Potassium 4.5 mmol/L (3.5-5.1)
[2019-02-19] MEDS ORDERED: LIDOCAINE HCL 1% 20 ML VIAL ONE (07:59)
[2019-02-19] MEDS ORDERED: HEPARIN SOD (PORCINE) 5,000 UNITS/ML VIAL ONE (07:59)
[2019-02-19] MEDS ORDERED: CEFAZOLIN 3000MG 72.5 ML IV ONE (08:00)
--- NOTE | 2019-02-19 08:25 | Pre Anesthesia Assessment ---
Date of Service February 19, 2019 Pre Sedation Assessment Vital Signs Temp Pulse Pulse Resp BP Pulse Ox Pulse Ox 02/19/19 08:11 36.4 C L 74 18 140/63 95 02/19/19 07:14 36.5 C 59 L 20 121/69 95 02/19/19 04:57 36.8 C 60 18 150/64 H 96 02/18/19 23:22 36.4 C L 60 18 145/70 H 98 02/18/19 22:20 60 02/18/19 22:11 65 24 95 02/18/19 19:00 36.4 C L 60 16 111/69 96 02/18/19 16:20 36.3 C L 60 18 112/70 95 02/18/19 15:06 60 02/18/19 15:02 36.3 C L 55 L 18 126/68 94 02/18/19 13:05 95 02/18/19 11:47 36.6 C 60 18 111/62 97 02/18/19 10:40 97 Cardiovascular RRR, no murmur, no edema Respiratory normal respiratory effort, lungs clear to auscultation Pre-Sedation Airway Assessment Smoking Status: Never smoker Hx Sleep Apnea: Yes (bipap at night) Short, Thick Neck: Yes Thyromental Distance: > or= 3.5 Finger Breadths Oral Cavity: + WNL Mallampati Class: II ASA: ASA4 NPO Status Date of Last Intake of Fluids: 02/18/19 Time of Last Intake of Fluids: 23:00 Date of Last Intake of Solid Food: 02/18/19 Time of Last Intake of Solid Foods: 21:00 Procedure Planning Contraindications for Sedation: none Current Medications Reviewed: Yes Notes The planned sedation has been discussed with the patient. Informed Consent was obtained. I have identified the patient, determined the appropriateness of sedation and have assessed the patient immediately prior to the procedure. All medicine(s) and interventions are by my order.
[2019-02-19] MEDS ORDERED: fentaNYL citrate 100 MCG/2 ML VIAL ONE (08:38)
[2019-02-19] MEDS ORDERED: MIDAZOLAM HCL 1 MG/ML 2ML VIAL ONE (08:38)
[2019-02-19] MEDS ORDERED: ARISTA ABSORBABLE HEMOSTAT 3GM TOP ONE (08:58)
--- NOTE | 2019-02-19 09:07 | Post Operative Brief Note ---
Immediate Post Op Note v1 Date of Surgery February 19, 2019 Pre & Post Diagnosis Operation Date: 02/19/19 08:30 Pre-Op Diagnosis: acute kidney injury Post-Op Diagnosis: acute kidney injury Procedure Operation Date: 02/19/19 08:30 Actual Procedures p Insertion Of Perm Catheter, Right Internal Jugular Approach, Ultrasound Lo calization Of Right Internal Jugular Vein, Fluoroscopy For Positioning, Moderate Concious Sedation 0845 to 0908(Right) - Damien Jennings MD Surgeon Damien Jennings MD Play Therapist MD Flor Estimated Blood Loss 5 Findings Consistent with Post-Op Diagnosis Anesthesia Type RN Sedation Complications none Disposition Accompanied Patient To Recovery: No Disposition: Recovery Room
--- NOTE | 2019-02-19 09:11 | Operative Report ---
Post Operative Report Pre & Post Diagnosis Operation Date: 02/19/19 08:30 Pre-Op Diagnosis: acute kidney injury Post-Op Diagnosis: acute kidney injury Procedure Operation Date: 02/19/19 08:30 Actual Procedures p Insertion Of Perm Catheter, Right Internal Jugular Approach, Ultrasound Localization Of Right Internal Jugular Vein, Fluoroscopy For Positioning, Moderate Concious Sedation 4845 - 9961 to(Right) - Damien Jennings MD Surgeon Damien Jennings MD Awnings Mechanic Bill Garcia MD Estimated Blood Loss 5 Findings Consistent with Post-Op Diagnosis Specimens None Complications none Disposition Disposition: Recovery Room Indications Rick Pierce is a 68yo gentleman with Acute Renal Failure who now requires dialysis access. He was offered placement of a tunnelled dialysis catheter and agreed to proceed with the procedure. The risks and benefits of the procedure were discussed and consent was signed. Description of Procedure Patient was taken to the angio suite and placed in the supine position. The right side of the neck and chest wall were prepped and draped in a sterile manner. Local anesthesia was then administered to the appropriate areas of the neck and chest wall. Ultrasound was then used to locate the right internal jugular vein. The vein compressed easily, had no filing defects, and was patent. The vein was then punctured under direct ultrasound imaging. A guidewire was then passed centrally under fluoroscopic imaging. A stab wound was then made in the anterior chest wall and a 19 cm permcath was passed from the stab wound on the chest wall to the puncture site on the neck. The puncture site was then dilated till the 14Fr peel away sheath was inserted. The permcath was then inserted through the sheath to a central position in the distal superior vena cava. The peel away sheath was then removed. The catheter was then sutured in place using nylon sutures. The puncture was then closed using a 4-0 Vicryl subcuticular suture. Dermabond was used for a dressing on the puncture site. Both ports aspirated and flushed easily and were then packed with 1.6mL of heparin. A sterile dressing was applied to the catheter. The patient left the angio suite in good condition and tolerated the procedure well. I attest to the content of the Intraoperative Record and any orders documented therein. Any exceptions are noted below.
--- NOTE | 2019-02-19 09:16 | Post Anesthesia Assessment ---
Date of Service February 19, 2019 Post Sedation Assessment Vital Signs Temp Pulse Pulse Resp BP Pulse Ox Pulse Ox 02/19/19 09:08 60 14 112/64 95 02/19/19 09:03 60 14 118/51 L 98 02/19/19 09:00 60 16 97/64 L 95 02/19/19 08:57 60 16 97/50 L 98 02/19/19 08:50 60 16 100/65 95 02/19/19 08:45 61 17 118/72 100 02/19/19 08:40 64 18 112/63 97 02/19/19 08:11 36.4 C L 74 18 140/63 95 02/19/19 07:14 36.5 C 59 L 20 121/69 95 02/19/19 04:57 36.8 C 60 18 150/64 H 96 02/18/19 23:22 36.4 C L 60 18 145/70 H 98 02/18/19 22:20 60 02/18/19 22:11 65 24 95 02/18/19 19:00 36.4 C L 60 16 111/69 96 02/18/19 16:20 36.3 C L 60 18 112/70 95 02/18/19 15:06 60 02/18/19 15:02 36.3 C L 55 L 18 126/68 94 02/18/19 13:05 95 02/18/19 11:47 36.6 C 60 18 111/62 97 02/18/19 10:40 97 Recovery Score Activity: Moves 4 extremities Respiration: Deep Breath/Cough Circulation: +/-20% PreAnes Value Consciousness: Arouseable (by name) Oxygen Saturation: O2 needed for >90% Post Anesthesia Score: 8 Discharge Sedation Level of Care: Fast Track Phase II Post Sedation Plan On clinical assessment, the patient appears to have tolerated the sedation without complications. Patient is recovering as anticipated. Patient will continue to be monitored by nursing and may be discharged when sedation discharge criteria are met per below protocol. Upon Completions of procedure and additional 15 minutes continue every 5 minute vital signs and the P.A.R. score; then discharge to a Phase I or Fast Track to Phase II per the following guidelines: * Discharge Patient to appropriate Phase II area if PAR is 8 or greater or return to pre- procedure baseline. The post - procedure orders will be as directed. * If PAR score is less than 8 or not return to pre-procedure baseline then patient will follow Phase I monitoring till PAR is reached for Phase II. The Phase I may be done in procedure room or may call to secure a Phase I area. * If naloxone or flumazenil are used for reversal, hold in Phase I for continued monitoring from when last reversal dose was given for a minimum of 60 minutes or longer pending the nurse and/or physician discretion of patient condition before discharge to Phase II. Please call the Sedation Physician to re-evaluate and complete post-note for discharge to Phase II area. Do NOT discharge from procedure sedation or Phase 1 until post- sedation evaluation note is complete by procedure /sedation MD Sedation Discharge Instructions to be given to the patient at discharge to home.
[2019-02-19] MEDS: INSULIN ASPART 100 UNITS/ML 3 ML PEN SC SCH ×4 (09:37→20:26)
[2019-02-19] MEDS: ASPIRIN 81 MG ECTAB PO SCH (09:38)
[2019-02-19] MEDS: APIXABAN 5 MG TABLET PO SCH ×2 (09:38→20:28)
[2019-02-19] MEDS: ISOSORBIDE MONO EXTENDED REL 30 MG TABCR PO SCH (09:39)
[2019-02-19] MEDS: PANTOprazole 40 MG TAB PO SCH (09:40)
[2019-02-19] MEDS: METOPROLOL TARTRATE 100 MG TAB PO SCH ×2 (09:40→20:28)
[2019-02-19] MEDS: AMLODIPINE BESYLATE 5 MG TAB PO SCH (09:40)
[2019-02-19] MEDS: CEROVITE ADV FORMULA TAB PO SCH (09:40)
[2019-02-19] MEDS: TIOTROPIUM BROMIDE 5 PUFF/90 MCG INH INH SCH (09:40)
[2019-02-19] MEDS: CYANOCOBALAMIN 500 MCG TABLET (VITAMIN B-12) PO SCH (09:41)
[2019-02-19] MEDS: BUDESONIDE/FORMOTEROL FUMARATE 160/4.5 60 PUFFS/INHALER INH SCH ×2 (09:41→20:27)
[2019-02-19] MEDS: THIAMINE HCL 100 MG TAB PO SCH (09:41)
[2019-02-19] MEDS: CHOLECALCIFEROL 1,000 UNITS TAB PO SCH (09:42)
[2019-02-19] MEDS: allopurinoL 100 MG TAB PO SCH (09:42)
[2019-02-19] MEDS ORDERED: SODIUM CHLORIDE 0.9% 1000ML 1,000 ML IV PRN (10:10)
--- NOTE | 2019-02-19 10:33 | Nephrology Progress Note ---
Date of Service February 19, 2019 Assessment & Plan (1) Acute renal failure: -- Continue to hold Furosemide and Lisinopril -- Progressive azotemia despite IV hydration -- IJ THC now in place. Will provide 1st run HD today -- Will schedule 2nd dialysis treatment for am. Orders have been entered into EMR and HD RN notified -- Will order social service consultation to set up outpatient dialysis at [facility] and evaluate for county transportation (2) CKD (chronic kidney disease), stage III: -- Baseline creatinine ~ 1.8 (3) CHF (congestive heart failure): -- Echocardiogram 02/16/19: [id number] - 60% w/ normal IVC. No significant valvular abnormality (4) Altered mental status: -- ABG reviewed. Mild mixed respiratory/metabolic acidosis. Only mild CO2 retention -- Gabapentin stopped due to CANDACE -- Recommend reducing or holding all nonessential medications that may impair cognition: Ese Johns Paxil Subjective Mr. Pierce was seen & examined in his hospital room this morning. He has just returned from R IJ THC placement. Catheter site has a clean dry dressing in place. Patient is breathing comfortably. He remains lethargic and quickly drifts off to sleep during my exam Review of Systems Constitutional: + weakness; no fever and no chills Eyes: no worsening vision and no problem reported Ear, Nose, Mouth, Throat: no problem reported Respiratory: + dyspnea Cardiovascular: + edema; no chest pain and no palpitations Gastrointestinal: + diarrhea/loose stools; no abdominal pain, no nausea and no vomiting Genitourinary: no dysuria, no urinary hesitancy and no hematuria Musculoskeletal: no back pain Integumentary: no rash Neurologic: + confusion Physical Exam Constitutional: + obese and + lethargic; not in distress Eyes: PERRL, conjunctivae normal, anicteric sclerae ENMT: external ear and nose normal, oropharynx normal Neck: trachea midline, no thyromegaly Respiratory: normal respiratory effort Auscultation: + crackles (anteriorly) Cardiovascular: Rate/Rhythm: regular rate Extremities: + edema (2+ LE edema) Gastrointestinal (Abdomen): normal bowel sounds, soft, nontender, no hepatosplenomegaly Musculoskeletal: Extremities: no cyanosis Skin: no rashes, warm and dry Neurologic: awake; not confused Results & Data Vital Signs (Past 12 Hours) Vital Signs Temp Pulse Pulse Resp BP Pulse Ox 02/19/19 09:49 36.4 C L 60 18 117/60 92 02/19/19 09:35 60 20 117/59 L 98 02/19/19 09:12 36.5 C 60 18 122/65 98 02/19/19 09:08 60 14 112/64 95 02/19/19 09:03 60 14 118/51 L 98 02/19/19 09:00 60 16 97/64 L 95 02/19/19 08:57 60 16 97/50 L 98 02/19/19 08:50 60 16 100/65 95 02/19/19 08:45 61 17 118/72 100 02/19/19 08:40 64 18 112/63 97 02/19/19 08:11 36.4 C L 74 18 140/63 95 02/19/19 07:14 36.5 C 59 L 20 121/69 95 02/19/19 04:57 36.8 C 60 18 150/64 H 96 02/18/19 23:22 36.4 C L 60 18 145/70 H 98 Laboratory Results Laboratory Tests 02/19/19 02/19/19 06:34 06:34 WBC 7.39 Hgb 10.1 L Hct 30.6 L Plt Count 136 Sodium 140 Potassium 4.5 Chloride 108 H Carbon Dioxide 22 BUN 136 H Creatinine 5.02 H* Glucose 88 PG Care Time/CCT Total # of Minutes Spent Total Time Spent with Patient: Total time spent is greater than 50% in coordination of care (as documented) at patient's floor/unit and/or counseling patient: (1) Acute renal failure Acute renal failure type: unspecified Qualified Code(s): N17.9 - Acute kidney failure, unspecified (2) CHF (congestive heart failure) Heart failure chronicity: unspecified Heart failure type: unspecified Qualified Code(s): I50.9 - Heart failure, unspecified
[2019-02-19 10:47] LABS: Hepatitis B Surface Ab Quant < 3.10 mIU/mL (>or=10mIU/mL Immune); Hepatitis B Surface Antibody Non-Immune
[2019-02-19 10:58] LABS: Hepatitis B Surface Antigen Neg (Neg)
--- NOTE | 2019-02-19 14:20 | Hospitalist Progress Note ---
Date of Service February 19, 2019 Assessment & Plan (1) Acute renal failure: Creatinine 4.77 on admission with hyperkalemia, creatinine peaked at 5.3 Hold furosemide, lisinopril FeNa < 1% Renal US negative for obstruction Consulted nephrology - patient will have permacath placed and undergo dialysis 02/19 (2) Acute hyperkalemia: Resolved Given dextrose and insulin in ED Kayexalate x 3 follow on heart monitor hold po potassium Low potassium diet (3) COPD (chronic obstructive pulmonary disease): with recent exacerbation Completed doxycycline/prednisone regimen started in ED 02/13 (4) Paroxysmal atrial fibrillation: Continue apixaban, metoprolol (5) Type 2 diabetes mellitus without complication: hold home glipizide glycemic pharmacist consult (6) Congestive heart failure: Chronic diastolic heart failure BNP over 9,000 CXR showing slight improvement of the patient's congestive failure/pulmonary edema but congestion persists Lower extremity edema Hold diuretics as above Echo with EF 55% Consult cardiology and nephrology (7) Hyperlipidemia: continue statin (8) Hypertension: continue metoprolol, amlodipine, hold lisinopril (9) Metabolic encephalopathy: May be due to azotemia Only mild CO2 retention on ABG CT head wnl Ammonia wnl Hold gabapentin, buspar, trazadone, clonazepam - will leave paroxetine for now (10) Constipation: Xray showing fecal stasis Suppository, prn lactulose qid, miralax BM 02/18 (11) Coronary artery disease: continue atorvastatin, asa, isosorbide (12) Morbid obesity: diet and exercise counseling (13) Thiamine deficiency: continue thiamine supplementation (14) Depression: continue paroxetine, hold trazodone for encephalopathy (15) DVT prophylaxis: Apixaban, SCDs Subjective Mr. Pierce continues to be drowsy but oriented and conversant. No complaints. Review of Systems Review of Systems: All systems reviewed & are unremarkable except as noted in HPI & below Physical Exam Physical Exam: General: no distress Eyes: normal inspection, PERLL Respiratory: chest non tender, clear to auscultation, normal breath sounds, no r espiratory distress, no accessory muscle use Cardiac: regular rate and rhythm, no rub or gallop, no murmur, no edema, no jvd GI/: active bowel sounds, no abd pain or tenderness, soft, non distended Extremities: normal range of motion, normal strength, non tender Neuro/Psych: alert and oriented x 3, normal mood and affect Skin: normal color, dry Results & Data Vital Signs (Past 12 Hours) Vital Signs Temp Pulse Pulse Pulse Resp BP BP 02/19/19 14:00 63 140/66 02/19/19 13:40 66 155/64 H 02/19/19 13:20 63 124/64 02/19/19 13:00 60 136/67 02/19/19 12:40 56 L 126/66 02/19/19 12:30 69 117/64 02/19/19 12:25 37.1 C 70 02/19/19 10:52 36.9 C 57 L 20 113/64 02/19/19 09:49 36.4 C L 60 18 117/60 02/19/19 09:35 60 20 117/59 L 02/19/19 09:12 36.5 C 60 18 122/65 02/19/19 09:08 60 14 112/64 02/19/19 09:03 60 14 118/51 L 02/19/19 09:00 60 16 97/64 L 02/19/19 08:57 60 16 97/50 L 02/19/19 08:50 60 16 100/65 02/19/19 08:45 61 17 118/72 02/19/19 08:40 64 18 112/63 02/19/19 08:11 36.4 C L 74 18 140/63 02/19/19 07:14 36.5 C 59 L 20 121/69 02/19/19 04:57 36.8 C 60 18 150/64 H Pulse Ox 02/19/19 14:00 02/19/19 13:40 02/19/19 13:20 02/19/19 13:00 02/19/19 12:40 02/19/19 12:30 02/19/19 12:25 02/19/19 10:52 94 02/19/19 09:49 92 02/19/19 09:35 98 02/19/19 09:12 98 02/19/19 09:08 95 02/19/19 09:03 98 02/19/19 09:00 95 02/19/19 08:57 98 02/19/19 08:50 95 02/19/19 08:45 100 02/19/19 08:40 97 02/19/19 08:11 95 02/19/19 07:14 95 02/19/19 04:57 96 PG Care Time/CCT Total # of Minutes Spent Total Time Spent with Patient: Total time spent is greater than 50% in coordination of care (as documented) at patient's floor/unit and/or counseling patient: (1) Acute renal failure Acute renal failure type: unspecified Qualified Code(s): N17.9 - Acute kidney failure, unspecified (2) COPD (chronic obstructive pulmonary disease) COPD type: unspecified COPD Qualified Code(s): J44.9 - Chronic obstructive pulmonary disease, unspecified (3) Congestive heart failure Heart failure chronicity: acute Heart failure type: systolic Qualified Code(s): I50.21 - Acute systolic (congestive) heart failure
--- NOTE | 2019-02-19 15:56 | Cardiology Progress Note ---
Date of Service February 19, 2019 Assessment & Plan (1) CHF exacerbation: The patient has a difficult exam. Nephrology feels he is intravascularly depleted. Currently on dialysis. Plan for second treatment tomorrow am. Diuretic and fluid management per Dr. Carter. Furosemide and Lisinopril currently on hold. Continues I&O's. Low sodium diet, less than 2,000 mg daily. Typically follows with the [facility]. (2) CAD (coronary artery disease), [place] coronary artery: The patient had a bare metal stent placed in the proximal RCA in November 2012. He was noted have nonobstructive disease in the proximal LAD and proximal RCA. Continue medical management. (3) Atrial fibrillation: The patient's atrial fibrillation appears to be permanent. He is asymptomatic and rate is well controlled. Eliquis dose was adjusted yesterday realizing his renal insufficiency. (4) Pacemaker: The patient has a dual-chamber Medtronic pacemaker which was placed back in 2011. He follows with the [employer] system at home, a yearly checks at the [facility]. Subjective Mr. anguiano is resting comfortably. He is currently undergoing dialysis. He voices no additional complaints today. Physical Exam Physical Exam: In general this is an obese white male lying at 43 in bed without complaints. HEENT exam is negative. Neck is supple with full carotid upstrokes. No obvious bruits. Jugular venous pressure is difficult to assess. Cardiovascular exam reveals a regular rhythm with distant heart sounds. No obvious murmurs. Lungs note bibasilar rales. Abdomen is obese without bruits. Chest reveals a palpable pacemaker in the left subclavicular region. Extremities reveal 1+ pitting edema to the knees bilaterally. Results & Data Vital Signs (Past 12 Hours) Vital Signs Temp Pulse Pulse Pulse Resp BP BP 02/19/19 15:27 97.5 F L 61 18 128/57 L 02/19/19 14:57 98.8 F 64 130/65 02/19/19 14:00 63 140/66 02/19/19 13:40 66 155/64 H 02/19/19 13:20 63 124/64 02/19/19 13:00 60 136/67 02/19/19 12:40 56 L 126/66 02/19/19 12:30 69 117/64 02/19/19 12:25 98.8 F 70 02/19/19 10:52 98.4 F 57 L 20 113/64 02/19/19 09:49 97.5 F L 60 18 117/60 02/19/19 09:35 60 20 117/59 L 02/19/19 09:12 97.7 F 60 18 122/65 02/19/19 09:08 60 14 112/64 02/19/19 09:03 60 14 118/51 L 02/19/19 09:00 60 16 97/64 L 02/19/19 08:57 60 16 97/50 L 02/19/19 08:50 60 16 100/65 02/19/19 08:45 61 17 118/72 02/19/19 08:40 64 18 112/63 02/19/19 08:11 97.5 F L 74 18 140/63 02/19/19 07:14 97.7 F 59 L 20 121/69 02/19/19 04:57 98.2 F 60 18 150/64 H Pulse Ox 02/19/19 15:27 94 02/19/19 14:57 02/19/19 14:00 02/19/19 13:40 02/19/19 13:20 02/19/19 13:00 02/19/19 12:40 02/19/19 12:30 02/19/19 12:25 02/19/19 10:52 94 02/19/19 09:49 92 02/19/19 09:35 98 02/19/19 09:12 98 02/19/19 09:08 95 02/19/19 09:03 98 02/19/19 09:00 95 02/19/19 08:57 98 02/19/19 08:50 95 02/19/19 08:45 100 02/19/19 08:40 97 02/19/19 08:11 95 02/19/19 07:14 95 02/19/19 04:57 96 PG Care Time/CCT Total # of Minutes Spent Total Time Spent with Patient: Total time spent is greater than 50% in coordination of care (as documented) at patient's floor/unit and/or counseling patient:
[2019-02-19] MEDS: ATORVASTATIN 40 MG TAB PO SCH (20:28)
[2019-02-19] MEDS: PARoxetine HCl CONTROLLED REL 12.5 MG TABCR PO SCH (20:28)
[2019-02-20] MEDS ORDERED: SODIUM CHLORIDE 0.9% 1000ML 1,000 ML IV PRN (07:00)
[2019-02-20] MEDS: AMLODIPINE BESYLATE 5 MG TAB PO SCH (08:22)
[2019-02-20] MEDS: LORATADINE 10 MG TAB PO SCH (08:22)
[2019-02-20] MEDS: METOPROLOL TARTRATE 100 MG TAB PO SCH ×2 (08:22→21:25)
[2019-02-20] MEDS: allopurinoL 100 MG TAB PO SCH (08:22)
[2019-02-20] MEDS: CEROVITE ADV FORMULA TAB PO SCH (08:22)
[2019-02-20] MEDS: PANTOprazole 40 MG TAB PO SCH (08:22)
[2019-02-20] MEDS: APIXABAN 5 MG TABLET PO SCH ×2 (08:23→21:24)
[2019-02-20] MEDS: BUDESONIDE/FORMOTEROL FUMARATE 160/4.5 60 PUFFS/INHALER INH SCH ×2 (08:23→21:27)
[2019-02-20] MEDS: ASPIRIN 81 MG ECTAB PO SCH (08:23)
[2019-02-20] MEDS: ISOSORBIDE MONO EXTENDED REL 30 MG TABCR PO SCH (08:23)
[2019-02-20] MEDS: CYANOCOBALAMIN 500 MCG TABLET (VITAMIN B-12) PO SCH (08:24)
[2019-02-20] MEDS: TIOTROPIUM BROMIDE 5 PUFF/90 MCG INH INH SCH (08:24)
[2019-02-20] MEDS: THIAMINE HCL 100 MG TAB PO SCH (08:24)
[2019-02-20] MEDS: CHOLECALCIFEROL 1,000 UNITS TAB PO SCH (08:24)
[2019-02-20] MEDS: INSULIN ASPART 100 UNITS/ML 3 ML PEN SC SCH ×4 (08:24→21:22)
[2019-02-20 08:37] LABS: Hematocrit (blood only) 30.7 % (42-52); Hemoglobin 10.1 g/dL (14.0-18.0); Mean Corpuscular Hemoglobin 31.4 pg (25-34); Mean Corpuscular Hgb Conc 32.9 g/dL (32-36); Mean Corpuscular Volume 95.3 fL (80-100); Mean Platelet Volume 12.3 fL (7.4-10.4); Platelet Count 133 K/uL (130-400); RDW Coefficient of Variation 15.9 % (11.5-14.5); RDW Standard Deviation 55.2 fL (36.4-46.3); Red Blood Count 3.22 M/uL (4.7-6.1); White Blood Count 7.94 K/uL (4.8-10.8)
[2019-02-20 09:01] LABS: BUN Creatinine Ratio 27.4 (10-20); Calcium 8.4 mg/dl (8.5-10.1); Creatinine Clr Calc Pharmacy 24.6 ml/min; Est GFR (African American) 17.6; Est GFR (Non-African American) 15.2; Potassium 4.4 mmol/L (3.5-5.1)
--- NOTE | 2019-02-20 10:57 | Nephrology Progress Note ---
Date of Service February 20, 2019 Assessment & Plan (1) Acute renal failure: -- Continue to hold Furosemide and Lisinopril -- 2nd run HD today. Orders have been entered into EMR and HD RN notified -- Will order social service consultation to set up outpatient dialysis at [facility] and evaluate for county transportation (2) CKD (chronic kidney disease), stage III: -- Baseline creatinine ~ 1.8 (3) CHF (congestive heart failure): -- Echocardiogram 02/16/19: [id number] - 60% w/ normal IVC. No significant valvular abnormality (4) Altered mental status: -- Improved -- Gabapentin stopped due to CANDACE -- Recommend reducing or holding all nonessential medications that may impair cognition: Ese Johns Paxil Subjective Mr. Pierce was seen & examined in his hospital room this morning. He is being prepared for HD. Mr. Pierce is more alert this am. He is oriented to self and place but not month. He does follow simple commands. Mr. Pierce completed his 1st dialysis treatment yesterday. Review of Systems Constitutional: + weakness; no fever and no chills Eyes: no worsening vision and no problem reported Ear, Nose, Mouth, Throat: no problem reported Respiratory: + dyspnea Cardiovascular: + edema; no chest pain and no palpitations Gastrointestinal: + diarrhea/loose stools; no abdominal pain, no nausea and no vomiting Genitourinary: no dysuria, no urinary hesitancy and no hematuria Musculoskeletal: no back pain Integumentary: no rash Neurologic: + confusion Physical Exam Constitutional: + obese; not in distress Eyes: PERRL, conjunctivae normal, anicteric sclerae ENMT: external ear and nose normal, oropharynx normal Neck: trachea midline, no thyromegaly R IJ THC w/ clean, dry dressing in place Respiratory: normal respiratory effort Auscultation: + crackles (anteriorly) Cardiovascular: Rate/Rhythm: regular rate Extremities: + edema (2+ LE edema) Gastrointestinal (Abdomen): normal bowel sounds, soft, nontender, no hepatosplenomegaly Musculoskeletal: Extremities: no cyanosis Skin: no rashes, warm and dry Neurologic: awake; not confused Results & Data Vital Signs (Past 12 Hours) Vital Signs Temp Pulse Pulse Pulse Resp BP BP 02/20/19 10:40 60 141/67 H 02/20/19 10:20 60 142/72 H 02/20/19 10:00 60 127/65 02/20/19 09:40 68 139/67 02/20/19 09:30 37.0 C 54 L 54 L 144/76 H 02/20/19 07:05 36.7 C 55 L 16 126/65 02/20/19 02:59 36.7 C 60 16 133/68 02/20/19 00:16 36.7 C 61 16 137/56 L Pulse Ox 02/20/19 10:40 02/20/19 10:20 02/20/19 10:00 02/20/19 09:40 02/20/19 09:30 02/20/19 07:05 94 02/20/19 02:59 93 02/20/19 00:16 91 PG Care Time/CCT Total # of Minutes Spent Total Time Spent with Patient: Total time spent is greater than 50% in coordination of care (as documented) at patient's floor/unit and/or counseling patient: (1) Acute renal failure Acute renal failure type: unspecified Qualified Code(s): N17.9 - Acute kidney failure, unspecified (2) CHF (congestive heart failure) Heart failure chronicity: unspecified Heart failure type: unspecified Qualified Code(s): I50.9 - Heart failure, unspecified
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
[2019-02-20] MEDS: ATORVASTATIN 40 MG TAB PO SCH (21:25)
[2019-02-20] MEDS: PARoxetine HCl CONTROLLED REL 12.5 MG TABCR PO SCH (21:26)
[2019-02-21 05:34] LABS: BUN Creatinine Ratio 22.8 (10-20); Calcium 8.3 mg/dl (8.5-10.1); Creatinine Clr Calc Pharmacy 32.8 ml/min; Est GFR (African American) 24.9; Est GFR (Non-African American) 21.5; Potassium 4.3 mmol/L (3.5-5.1)
[2019-02-21] MEDS ORDERED: Nursing to Pharmacy Communication ONE (05:53)
[2019-02-21 06:00] LABS: Hematocrit (blood only) 30.6 % (42-52); Hemoglobin 10.1 g/dL (14.0-18.0); Mean Corpuscular Hemoglobin 31.5 pg (25-34); Mean Corpuscular Volume 95.3 fL (80-100); Mean Platelet Volume 12.7 fL (7.4-10.4); Platelet Count 113 K/uL (130-400); Platelet Estimate Normal (Normal); RDW Coefficient of Variation 15.8 % (11.5-14.5); RDW Standard Deviation 54.9 fL (36.4-46.3); Red Blood Count 3.21 M/uL (4.7-6.1); White Blood Count 8.02 K/uL (4.8-10.8)
--- NOTE | 2019-02-21 09:15 | Pharmacy Report ---
Glycemic Control Progress Note - Date of Service February 21, 2019 - Scope Glycemic Pharmacist consulted for glycemic control to write orders per [facility] inpatient glycemic control protocol. - Objective Accuchecks BSG(last 24 hours):: 02/20/19 02/20/19 02/20/19 13:06 16:22 20:06 Glucose POC Glucose 106 H 122 H 118 H 02/21/19 04:46 Glucose 107 H POC Glucose HbA1c:: Hemoglobin A1c 6.6 % (4.5-5.6) H 02/16/19 06:19 - Recent Pertinent Medications The patient is currently receiving: * Basal insulin: Lantus -- units every -- hours * Correctional Insulin: Novolog Correction per scale ACHS Goal Range: Low 110 mg/dL - High 140 mg/dL Correction Factor: 30 mg/dL/unit * Prandial insulin: Per carb ratio of 1 unit per 12 grams CHO consumed - Outpatient Anti-Diabetic Meds GLIPIZIDE 10 MG DAILY - Assessment & Plan ASSESSMENT: * See progress note from 02/15/19 for more background info, in short: * Pt receiving SQ basal bolus insulin regimen for hyperglycemia secondary to baseline DM (outpatient regimen on hold). Patient is a new start dialysis patient. * Patient is currently receiving an average of 8 units of insulin per day * 0 units of basal insulin * 8 units of prandial/correctional insulin * BSGs ranging 106 - 122 mg/dl over the past 24hrs * Changes needed to insulin regimen: * AM Fasting BSG = 107 mg/dl. This is in goal range for patient based on inpatient targets and co-morbidities. Continue to hold basal * Post-prandial BSGs are very well controlled. Remove carbohydrate ratio as patient trends down after every administration. * Total daily dose = <10 units. PLAN FOR INPATIENT GLYCEMIC CONTROL: * Continuing correction factor of 30 mg/dl/unit * Removing carb ratio * Continuing goal range of Low 110 mg/dL - High 140 mg/dL RECOMMENDATIONS FOR DISCHARGE: * Sulfonylureas are not recommended in kidney dysfunction including dialysis. Patient may not need any coverage as an outpatient. Recommend monitoring blood sugars as an outpatient since HbA1C is not reliable in dialysis patients. * If patient does need an oral option, may consider Januvia 25 mg daily. (SGLT- 2 inhibitors contraindicated). * In cardiac history, liraglutide may also be considered (no renal dose adjustment necessary). * Please note that the plan above was derived based on current level of insulin resistance and hospital stress. These recommendations are appropriate for inpatient admission only. Plan of care upon discharge will need to be reassessed to avoid potential outpatient hypo/hyperglycemia. Thank you.
[2019-02-21] MEDS: INSULIN ASPART 100 UNITS/ML 3 ML PEN SC SCH ×4 (09:40→20:26)
[2019-02-21] MEDS: CYANOCOBALAMIN 500 MCG TABLET (VITAMIN B-12) PO SCH (09:41)
[2019-02-21] MEDS: METOPROLOL TARTRATE 100 MG TAB PO SCH ×2 (09:41→20:25)
[2019-02-21] MEDS: CHOLECALCIFEROL 1,000 UNITS TAB PO SCH (09:41)
[2019-02-21] MEDS: APIXABAN 5 MG TABLET PO SCH ×2 (09:42→20:25)
[2019-02-21] MEDS: ASPIRIN 81 MG ECTAB PO SCH (09:42)
[2019-02-21] MEDS: THIAMINE HCL 100 MG TAB PO SCH (09:42)
[2019-02-21] MEDS: allopurinoL 100 MG TAB PO SCH (09:43)
[2019-02-21] MEDS: CEROVITE ADV FORMULA TAB PO SCH (09:43)
[2019-02-21] MEDS: ISOSORBIDE MONO EXTENDED REL 30 MG TABCR PO SCH (09:43)
[2019-02-21] MEDS: PANTOprazole 40 MG TAB PO SCH (09:43)
[2019-02-21] MEDS: AMLODIPINE BESYLATE 5 MG TAB PO SCH (09:43)
[2019-02-21] MEDS: BUDESONIDE/FORMOTEROL FUMARATE 160/4.5 60 PUFFS/INHALER INH SCH ×2 (09:44→20:26)
--- NOTE | 2019-02-21 09:53 | Nephrology Progress Note ---
Date of Service February 21, 2019 Assessment & Plan (1) Acute renal failure: -- Continue to hold Furosemide and Lisinopril -- Will schedule next HD for Friday -- health services manager has been consulted to set up outpatient dialysis at [facility] and evaluate for county transportation (2) CKD (chronic kidney disease), stage III: -- Baseline creatinine ~ 1.8 (3) CHF (congestive heart failure): -- Echocardiogram 02/16/19: [id number] - 60% w/ normal IVC. No significant valvular abnormality (4) Altered mental status: -- Improved -- Gabapentin stopped due to CANDACE -- Recommend reducing or holding all nonessential medications that may impair cognition: Ese Johns Paxil Subjective Mr. Pierce was seen & examined in his hospital room this morning. He was alert but oriented to self only. and daughter were at bedside. Mr. Pierce completed his 2nd dialysis treatment yesterday. There were no complications. Review of Systems Constitutional: + weakness; no fever and no chills Eyes: no worsening vision and no problem reported Ear, Nose, Mouth, Throat: no problem reported Respiratory: no dyspnea Cardiovascular: + edema; no chest pain and no palpitations Gastrointestinal: no abdominal pain, no nausea, no vomiting and no diarrhea/loose stools Genitourinary: no dysuria, no urinary hesitancy and no hematuria Musculoskeletal: no back pain Integumentary: no rash Neurologic: + confusion Physical Exam Constitutional: + obese; not in distress Eyes: PERRL, conjunctivae normal, anicteric sclerae ENMT: external ear and nose normal, oropharynx normal Neck: trachea midline, no thyromegaly R IJ THC without drainag Respiratory: normal respiratory effort Auscultation: + crackles (anteriorly) Cardiovascular: Rate/Rhythm: regular rate Extremities: + edema (2+ LE edema) Gastrointestinal (Abdomen): normal bowel sounds, soft, nontender, no hepatosplenomegaly Musculoskeletal: Extremities: no cyanosis Skin: no rashes, warm and dry Neurologic: awake; not confused Results & Data Vital Signs (Past 12 Hours) Vital Signs Temp Pulse Pulse Resp BP Pulse Ox 02/21/19 07:11 36.8 C 73 20 174/70 H 96 02/20/19 23:17 36.8 C 56 L 18 156/73 H 93 02/20/19 22:15 61 27 H 96 Laboratory Results Laboratory Tests 02/21/19 02/21/19 04:46 04:46 WBC 8.02 Hgb 10.1 L Hct 30.6 L Plt Count 113 L Sodium 139 Potassium 4.3 Chloride 107 Carbon Dioxide 25 BUN 65 H Creatinine 2.84 H D Glucose 107 H PG Care Time/CCT Total # of Minutes Spent Total Time Spent with Patient: Total time spent is greater than 50% in coordination of care (as documented) at patient's floor/unit and/or counseling patient: (1) Acute renal failure Acute renal failure type: unspecified Qualified Code(s): N17.9 - Acute kidney failure, unspecified (2) CHF (congestive heart failure) Heart failure chronicity: unspecified Heart failure type: unspecified Qualified Code(s): I50.9 - Heart failure, unspecified
[2019-02-21] MEDS: TIOTROPIUM BROMIDE 5 PUFF/90 MCG INH INH SCH (13:10)
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
[2019-02-21] MEDS: ATORVASTATIN 40 MG TAB PO SCH (20:24)
[2019-02-21] MEDS: PARoxetine HCl CONTROLLED REL 12.5 MG TABCR PO SCH (20:25)
[2019-02-21] MEDS: ONDANSETRON INJ 2 MG/ML 2 ML VIAL IV PRN (21:28)
[2019-02-22] MEDS: ZOLPIDEM TARTRATE 5 MG TAB PO PRN (01:38)
[2019-02-22] MEDS ORDERED: SODIUM CHLORIDE 0.9% 1000ML 1,000 ML IV PRN (07:00)
[2019-02-22] MEDS ORDERED: EPOETIN ALFA 10,000 UNITS/ML VIAL IV SCH (07:00)
[2019-02-22 07:18] LABS: Hemoglobin 9.3 g/dL (14.0-18.0); Mean Corpuscular Hemoglobin 31.7 pg (25-34); Mean Corpuscular Hgb Conc 33.2 g/dL (32-36); Mean Corpuscular Volume 95.6 fL (80-100); Mean Platelet Volume 12.2 fL (7.4-10.4); Platelet Count 93 K/uL (130-400); RDW Coefficient of Variation 15.9 % (11.5-14.5); RDW Standard Deviation 55.5 fL (36.4-46.3); Red Blood Count 2.93 M/uL (4.7-6.1); White Blood Count 6.98 K/uL (4.8-10.8)
[2019-02-22 07:50] LABS: BUN Creatinine Ratio 21.4 (10-20); Calcium 8.6 mg/dl (8.5-10.1); Creatinine Clr Calc Pharmacy 31.2 ml/min; Est GFR (Non-African American) 20.7; Potassium 4.3 mmol/L (3.5-5.1)
[2019-02-22] MEDS: INSULIN ASPART 100 UNITS/ML 3 ML PEN SC SCH ×4 (08:40→20:56)
[2019-02-22] MEDS: TIOTROPIUM BROMIDE 5 PUFF/90 MCG INH INH SCH (08:41)
[2019-02-22] MEDS: BUDESONIDE/FORMOTEROL FUMARATE 160/4.5 60 PUFFS/INHALER INH SCH ×2 (08:41→20:54)
--- NOTE | 2019-02-22 10:09 | Nephrology Progress Note ---
Date of Service February 22, 2019 Assessment & Plan (1) Encounter for hemodialysis for ESRD: 68-year-old gentlemen with history of CHF with well preserved EF, requirement of high dose diuretics chronically, admitted to the hospital with volume overload, Hyperkalemia with underlying stage IV CKD most likely secondary to cardiorenal syndrome. Started on hemodialysis on 02/19/2019 via right IJ tunneled dialysis catheter. Had 2nd dialysis treatment Friday. Volume status improved however continues to be volume overloaded, blood pressure above goal. --plan for dialysis today for 3 hours and then continue on Friday, Friday, Friday schedule. Social service consulted for outpatient dialysis set up at [facility]. --will check iron study, may need IV iron or Venofer --check phosphate --left arm nephrology percussion for future AV fistula placement --dose medications for GFR less than 10 Will follow (2) HTN (hypertension): (3) Anemia: Kavitha Cabrera was seen and examined in his room this morning. Overall he feels well, denies any symptom, reports that last 2 dialysis treatment have helped him feel better overall. Denies shortness breath or chest pain. Appetite remains poor. Review of Systems Review of Systems: All systems reviewed & are unremarkable except as noted in HPI & below Physical Exam Constitutional: well developed and well nourished; no acute distress Respiratory: normal respiratory effort, lungs clear to auscultation Cardiovascular: Heart Sounds: normal S1 and normal S2 Extremities: + edema Neurologic: moves all extremities and awake; not confused Psychiatric: A+Ox3, euthymic affect Results & Data Vital Signs (Past 12 Hours) Vital Signs Temp Pulse Pulse Resp BP BP Pulse Ox 02/22/19 09:34 37.1 C 60 02/22/19 07:34 36.9 C 60 18 155/91 H 93 02/21/19 23:03 36.9 C 61 18 145/73 H 91 PG Care Time/CCT Total # of Minutes Spent Total Time Spent with Patient: Total time spent is greater than 50% in coordination of care (as documented) at patient's floor/unit and/or counseling patient: (1) Anemia Anemia type: unspecified type Qualified Code(s): D64.9 - Anemia, unspecified
--- NOTE | 2019-02-22 11:03 | Pharmacy Report ---
Pharmacy Glycemic Short Note 2 - Date of Service February 22, 2019 - Glycemic Short BSG Results (Last 24 hours): 02/21/19 02/21/19 02/21/19 12:29 16:52 20:18 Glucose POC Glucose 188 H 152 H 139 H 02/22/19 02/22/19 06:44 08:05 Glucose 141 H POC Glucose 146 H ASSESSMENT: * 68yo T2DM male with adequate degree of outpatient control per recent A1c * Pt is maintained on glipizide as an outpatient - will hold for admission secondary to ADA recs and ARF--> HAWKINS can lead to longstanding hypoglycemia with ARF. * Patient is new to dialysis (received Friday and Friday) - plan is to continue MWF schedule and will receive today * Patient received 9 units of insulin yesterday (no basal insulin ordered/required at this time) * BSGs ranging 107-188 mg/dL yesterday with fasting BSG this AM of 146 mg/dL PLAN FOR INPATIENT GLYCEMIC CONTROL: * Hold outpatient oral diabetes medications * Basal insulin * BSGs well-controlled without basal insulin - will continue to hold at this time * Bolus insulin: continue current parameters * NovoLog per scale ACHS * Goal Range: Low 110 mg/dL - High 140 mg/dL {more stringent target used for tight outpatient glycemic control} * Correction Factor: 30 mg/dL/unit * Nutritional / Prandial insulin per carb ratio of 1 unit per 12 grams CHO consumed Recommendations for Discharge: * Patient's A1c is controlled (<7%) with current regimen of glipizide. Glipizide is the preferred sulfonylurea in patients with renal impairment. May need to decrease dose to 2.5 mg PO daily and titrate up as tolerated to decrease risk of hypoglycemia. Alternatively, could consider DPP-4 inhibitor such as linagliptin 5 mg PO daily (does NOT require any dosage adjustment in renal dysfunction). * Please note that the plan above was derived based on current level of insulin resistance and hospital stress. These recommendations are appropriate for inpatient admission only. Plan of care upon discharge will need to be reassessed to avoid potential outpatient hypo/hyperglycemia.
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
[2019-02-22] MEDS: CYANOCOBALAMIN 500 MCG TABLET (VITAMIN B-12) PO SCH (14:58)
[2019-02-22] MEDS: allopurinoL 100 MG TAB PO SCH (14:58)
[2019-02-22] MEDS: AMLODIPINE BESYLATE 5 MG TAB PO SCH (14:59)
[2019-02-22] MEDS: CHOLECALCIFEROL 1,000 UNITS TAB PO SCH (14:59)
[2019-02-22] MEDS: ISOSORBIDE MONO EXTENDED REL 30 MG TABCR PO SCH (14:59)
[2019-02-22] MEDS: ASPIRIN 81 MG ECTAB PO SCH (15:00)
[2019-02-22] MEDS: METOPROLOL TARTRATE 100 MG TAB PO SCH ×2 (15:00→20:51)
[2019-02-22] MEDS: CEROVITE ADV FORMULA TAB PO SCH (15:00)
[2019-02-22] MEDS: PANTOprazole 40 MG TAB PO SCH (15:00)
[2019-02-22] MEDS: APIXABAN 5 MG TABLET PO SCH ×2 (15:01→20:50)
[2019-02-22] MEDS: THIAMINE HCL 100 MG TAB PO SCH (15:01)
[2019-02-22] MEDS: ONDANSETRON INJ 2 MG/ML 2 ML VIAL IV PRN (17:12)
[2019-02-22] MEDS: LORATADINE 10 MG TAB PO SCH (18:49)
[2019-02-22] MEDS: GABAPENTIN 300 MG CAP PO SCH (20:48)
[2019-02-22] MEDS: ATORVASTATIN 40 MG TAB PO SCH (20:49)
[2019-02-22] MEDS ORDERED: PAXIL 20 MG PO ONE (21:00)
[2019-02-23] MEDS: ZOLPIDEM TARTRATE 5 MG TAB PO PRN (00:06)
[2019-02-23 06:27] LABS: Hematocrit (blood only) 27.4 % (42-52); Hemoglobin 8.9 g/dL (14.0-18.0); Mean Corpuscular Hemoglobin 31.6 pg (25-34); Mean Corpuscular Hgb Conc 32.5 g/dL (32-36); Mean Corpuscular Volume 97.2 fL (80-100); Platelet Count 105 K/uL (130-400); RDW Coefficient of Variation 15.6 % (11.5-14.5); RDW Standard Deviation 55.8 fL (36.4-46.3); Red Blood Count 2.82 M/uL (4.7-6.1); White Blood Count 6.48 K/uL (4.8-10.8)
[2019-02-23 07:08] LABS: Albumin Level 3.3 gm/dl (3.4-5.0); BUN Creatinine Ratio 15.1 (10-20); Calcium 8.4 mg/dl (8.5-10.1); Creatinine Clr Calc Pharmacy 40.8 ml/min; Est GFR (African American) 33.2; Est GFR (Non-African American) 28.6; Ferritin 506.7 ng/ml (8-388); Phosphorus 2.6 mg/dl (2.5-4.9); Potassium 4.1 mmol/L (3.5-5.1)
[2019-02-23] MEDS: BUDESONIDE/FORMOTEROL FUMARATE 160/4.5 60 PUFFS/INHALER INH SCH ×2 (08:36→20:28)
[2019-02-23] MEDS: TIOTROPIUM BROMIDE 5 PUFF/90 MCG INH INH SCH (08:36)
[2019-02-23] MEDS: GABAPENTIN 300 MG CAP PO SCH ×2 (08:37→20:26)
[2019-02-23] MEDS: INSULIN ASPART 100 UNITS/ML 3 ML PEN SC SCH ×4 (08:42→20:28)
[2019-02-23] MEDS: CYANOCOBALAMIN 500 MCG TABLET (VITAMIN B-12) PO SCH (09:40)
[2019-02-23] MEDS: AMLODIPINE BESYLATE 5 MG TAB PO SCH (09:41)
[2019-02-23] MEDS: ISOSORBIDE MONO EXTENDED REL 30 MG TABCR PO SCH (09:41)
[2019-02-23] MEDS: METOPROLOL TARTRATE 100 MG TAB PO SCH ×2 (09:41→20:26)
[2019-02-23] MEDS: APIXABAN 5 MG TABLET PO SCH ×2 (09:42→20:27)
[2019-02-23] MEDS: allopurinoL 100 MG TAB PO SCH (09:42)
[2019-02-23] MEDS: THIAMINE HCL 100 MG TAB PO SCH (09:43)
[2019-02-23] MEDS: CHOLECALCIFEROL 1,000 UNITS TAB PO SCH (09:43)
[2019-02-23] MEDS: ASPIRIN 81 MG ECTAB PO SCH (09:43)
[2019-02-23] MEDS: PANTOprazole 40 MG TAB PO SCH (09:43)
[2019-02-23] MEDS: CEROVITE ADV FORMULA TAB PO SCH (09:43)
[2019-02-23] MEDS: IRON SUCROSE 200 MG in 0.9 % SODIUM CHLORIDE 100 ML IV SCH (10:33)
--- NOTE | 2019-02-23 12:09 | Nephrology Progress Note ---
Date of Service February 23, 2019 Assessment & Plan (1) Encounter for hemodialysis for ESRD: 68-year-old gentlemen with history of CHF with well preserved EF, requirement of high dose diuretics chronically, admitted to the hospital with volume overload, Hyperkalemia with underlying stage IV CKD most likely secondary to cardiorenal syndrome. Started on hemodialysis on 02/19/2019 via right IJ tunneled dialysis catheter. Had 2nd dialysis treatment Friday. Volume status improved however continues to be volume overloaded, blood pressure above goal. --plan for dialysis tomorrow for 4 hours and then continue on Friday, Friday, Friday schedule. Social service consulted for outpatient dialysis set up at [facility]. --will check iron study, may need IV iron or Venofer --check phosphate --left arm nephrology percussion for future AV fistula placement --dose medications for GFR less than 10 --if he is being discharged to a rehab facility in [facility] he can have dialysis at the facility if there is an patient dialysis there otherwise he can have dialysis at a [facility] in [place] while he is at the rehab there. Will follow Subjective Rick was seen and examined in his room this morning with his at bedside.. He has been very sleepy as his reports he was restless last night and was knee and able to sleep. Overall he feels well, denies any symptom, Denies shortness breath or chest pain. Appetite remains poor. Had dialysis yesterday, currently electrolyte, blood pressure volume status acceptable. Review of Systems Review of Systems: All systems reviewed & are unremarkable except as noted in HPI & below Physical Exam Constitutional: well developed and well nourished; no acute distress Respiratory: normal respiratory effort, lungs clear to auscultation Cardiovascular: Heart Sounds: normal S1 and normal S2 Extremities: + edema Neurologic: moves all extremities and awake; not confused Psychiatric: A+Ox3, euthymic affect Results & Data Vital Signs (Past 12 Hours) Vital Signs Temp Pulse Resp BP BP Pulse Ox 02/23/19 11:11 36.7 C 60 136/73 92 02/23/19 10:54 36.8 C 59 L 148/70 H 90 02/23/19 10:40 36.8 C 62 148/68 H 92 02/23/19 07:10 36.6 C 60 16 168/72 H 96 PG Care Time/CCT Total # of Minutes Spent Total Time Spent with Patient: Total time spent is greater than 50% in coordination of care (as documented) at patient's floor/unit and/or counseling patient:
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
--- NOTE | 2019-02-23 13:57 | Pharmacy Report ---
Pharmacy Glycemic Short Note 2 - Date of Service February 23, 2019 - Glycemic Short BSG Results (Last 24 hours): 02/22/19 02/22/19 02/22/19 14:01 16:35 20:03 Glucose POC Glucose 120 H 142 H 155 H 02/23/19 02/23/19 02/23/19 05:36 07:42 11:27 Glucose 112 H POC Glucose 117 H 188 H ASSESSMENT: * 68yo T2DM male with adequate degree of outpatient control per recent A1c * Pt is maintained on glipizide as an outpatient - will hold for admission secondary to ADA recs and ARF--> [facility] can lead to longstanding hypoglycemia with ARF. * Patient received HD on Friday (02/22) - plan is to continue MWF schedule * Patient's BSGs have been well-controlled throughout hospital stay * BSGs ranging 120-155 mg/dL yesterday with fasting BSG this AM of 117 mg/dL * Received 4 units of correction/prandial insulin yesterday PLAN FOR INPATIENT GLYCEMIC CONTROL: * Hold outpatient oral diabetes medications * Basal insulin * BSGs well-controlled without basal insulin - will continue to hold at this time * Bolus insulin: will slightly tighten CR based on BSG of 188 before lunch (patient appetite appears to be improving) * NovoLog per scale ACHS * Goal Range: Low 110 mg/dL - High 140 mg/dL {more stringent target used for tight outpatient glycemic control} * Correction Factor: 30 mg/dL/unit * Nutritional / Prandial insulin per carb ratio of 1 unit per 10 grams CHO consumed Recommendations for Discharge: * Patient's A1c is controlled (<7%) with current regimen of glipizide. Glipizide is the preferred sulfonylurea in patients with renal impairment. May need to decrease dose to 2.5 mg PO daily and titrate up as tolerated to decrease risk of hypoglycemia. Alternatively, could consider DPP-4 inhibitor such as linagliptin 5 mg PO daily (does NOT require any dosage adjustment in renal dysfunction). * Please note that the plan above was derived based on current level of insulin resistance and hospital stress. These recommendations are appropriate for inpatient admission only. Plan of care upon discharge will need to be reassessed to avoid potential outpatient hypo/hyperglycemia.
[2019-02-23] MEDS: PARoxetine HCl CONTROLLED REL 12.5 MG TABCR PO SCH (20:25)
[2019-02-23] MEDS: ATORVASTATIN 40 MG TAB PO SCH (20:27)
[2019-02-23] MEDS: TRAZODONE HCL 100 MG TAB PO SCH (20:27)
[2019-02-24 05:56] LABS: Hematocrit (blood only) 27.2 % (42-52); Hemoglobin 8.9 g/dL (14.0-18.0); Mean Corpuscular Hemoglobin 31.3 pg (25-34); Mean Corpuscular Hgb Conc 32.7 g/dL (32-36); Mean Corpuscular Volume 95.8 fL (80-100); Mean Platelet Volume 12.8 fL (7.4-10.4); Platelet Count 101 K/uL (130-400); RDW Coefficient of Variation 15.4 % (11.5-14.5); RDW Standard Deviation 54.6 fL (36.4-46.3); Red Blood Count 2.84 M/uL (4.7-6.1); White Blood Count 5.15 K/uL (4.8-10.8)
[2019-02-24 06:12] LABS: Platelet Estimate Decreased (Normal)
[2019-02-24 06:18] LABS: BUN Creatinine Ratio 14.9 (10-20); Calcium 8.6 mg/dl (8.5-10.1); Creatinine Clr Calc Pharmacy 35.6 ml/min; Est GFR (African American) 28.1; Est GFR (Non-African American) 24.3; Potassium 4.1 mmol/L (3.5-5.1)
[2019-02-24] MEDS ORDERED: SODIUM CHLORIDE 0.9% 1000ML 1,000 ML IV PRN (07:00)
[2019-02-24] MEDS: INSULIN ASPART 100 UNITS/ML 3 ML PEN SC SCH ×4 (08:12→22:07)
[2019-02-24] MEDS: TIOTROPIUM BROMIDE 5 PUFF/90 MCG INH INH SCH (08:15)
[2019-02-24] MEDS: PANTOprazole 40 MG TAB PO SCH (08:15)
[2019-02-24] MEDS: BUDESONIDE/FORMOTEROL FUMARATE 160/4.5 60 PUFFS/INHALER INH SCH ×2 (08:15→22:08)
[2019-02-24] MEDS: IRON SUCROSE 200 MG in 0.9 % SODIUM CHLORIDE 100 ML IV SCH (08:25)
[2019-02-24] MEDS ORDERED: EPOETIN ALFA 10,000 UNITS/ML VIAL IV SCH (09:00)
--- NOTE | 2019-02-24 09:54 | Nephrology Progress Note ---
Date of Service February 24, 2019 Assessment & Plan (1) Encounter for hemodialysis for ESRD: 68-year-old gentlemen with history of CHF with well preserved EF, requirement of high dose diuretics chronically, admitted to the hospital with volume overload, Hyperkalemia with underlying stage IV CKD most likely secondary to cardiorenal syndrome. Started on hemodialysis on 02/19/2019 via right IJ tunneled dialysis catheter. Had 2nd dialysis treatment Friday. Volume status improved however continues to be volume overloaded, blood pressure above goal. --plan for dialysis today for 4 hours. Social service consulted for outpatient dialysis set up at [facility]. --continue Venofer --left arm nephrology percussion for future AV fistula placement --dose medications for GFR less than 10 Will follow Subjective Rick was seen and examined in his room this morning. Overall he feels well, denies any symptom, Denies shortness breath or chest pain. Appetite better, currently electrolyte, blood pressure volume status acceptable. Review of Systems Review of Systems: All systems reviewed & are unremarkable except as noted in HPI & below Physical Exam Constitutional: well developed and well nourished; no acute distress Respiratory: normal respiratory effort, lungs clear to auscultation Cardiovascular: Heart Sounds: normal S1 and normal S2 Extremities: + edema Neurologic: moves all extremities and awake; not confused Psychiatric: A+Ox3, euthymic affect Results & Data Vital Signs (Past 12 Hours) Vital Signs Temp Pulse Pulse Pulse Pulse Resp BP 02/24/19 09:42 36.7 C 55 L 02/24/19 07:31 37 C 60 18 123/57 L 02/23/19 23:01 37.3 C 58 L 18 02/23/19 22:32 76 20 BP Pulse Ox 02/24/19 09:42 02/24/19 07:31 93 02/23/19 23:01 149/64 H 92 02/23/19 22:32 95 PG Care Time/CCT Total # of Minutes Spent Total Time Spent with Patient: Total time spent is greater than 50% in coordination of care (as documented) at patient's floor/unit and/or counseling patient:
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
[2019-02-24] MEDS: CYANOCOBALAMIN 500 MCG TABLET (VITAMIN B-12) PO SCH (14:10)
[2019-02-24] MEDS: GABAPENTIN 300 MG CAP PO SCH ×2 (14:11→22:05)
[2019-02-24] MEDS: ISOSORBIDE MONO EXTENDED REL 30 MG TABCR PO SCH (14:11)
[2019-02-24] MEDS: LORATADINE 10 MG TAB PO SCH (14:11)
[2019-02-24] MEDS: APIXABAN 5 MG TABLET PO SCH ×2 (14:12→22:02)
[2019-02-24] MEDS: ASPIRIN 81 MG ECTAB PO SCH (14:12)
[2019-02-24] MEDS: CHOLECALCIFEROL 1,000 UNITS TAB PO SCH (14:12)
[2019-02-24] MEDS: THIAMINE HCL 100 MG TAB PO SCH (14:12)
[2019-02-24] MEDS: CEROVITE ADV FORMULA TAB PO SCH (14:12)
[2019-02-24] MEDS: AMLODIPINE BESYLATE 5 MG TAB PO SCH (14:13)
[2019-02-24] MEDS: allopurinoL 100 MG TAB PO SCH (14:13)
[2019-02-24] MEDS: METOPROLOL TARTRATE 100 MG TAB PO SCH ×2 (14:14→22:03)
[2019-02-24] MEDS: PARoxetine HCl CONTROLLED REL 12.5 MG TABCR PO SCH (22:03)
[2019-02-24] MEDS: TRAZODONE HCL 100 MG TAB PO SCH (22:06)
[2019-02-24] MEDS: ATORVASTATIN 40 MG TAB PO SCH (22:07)
[2019-02-25 07:20] VITALS: TEMP 98.4; O2SAT 96
[2019-02-25 07:36] LABS: Hematocrit (blood only) 25.9 % (42-52); Hemoglobin 8.4 g/dL (14.0-18.0); Mean Corpuscular Hemoglobin 31.1 pg (25-34); Mean Corpuscular Hgb Conc 32.4 g/dL (32-36); Mean Corpuscular Volume 95.9 fL (80-100); Mean Platelet Volume 12.2 fL (7.4-10.4); Platelet Count 106 K/uL (130-400); RDW Coefficient of Variation 15.3 % (11.5-14.5); RDW Standard Deviation 53.8 fL (36.4-46.3); White Blood Count 5.23 K/uL (4.8-10.8)
[2019-02-25 08:07] LABS: BUN Creatinine Ratio 8.4 (10-20); Calcium 8.3 mg/dl (8.5-10.1); Creatinine Clr Calc Pharmacy 41.7 ml/min; Est GFR (African American) 34.5; Est GFR (Non-African American) 29.8; Potassium 3.7 mmol/L (3.5-5.1)
[2019-02-25] MEDS: allopurinoL 100 MG TAB PO SCH (08:15)
[2019-02-25] MEDS: AMLODIPINE BESYLATE 5 MG TAB PO SCH (08:15)
[2019-02-25] MEDS: CEROVITE ADV FORMULA TAB PO SCH (08:16)
[2019-02-25] MEDS: CYANOCOBALAMIN 500 MCG TABLET (VITAMIN B-12) PO SCH (08:16)
[2019-02-25] MEDS: PANTOprazole 40 MG TAB PO SCH (08:16)
[2019-02-25] MEDS: ISOSORBIDE MONO EXTENDED REL 30 MG TABCR PO SCH (08:16)
[2019-02-25] MEDS: GABAPENTIN 300 MG CAP PO SCH (08:16)
[2019-02-25] MEDS: ASPIRIN 81 MG ECTAB PO SCH (08:17)
[2019-02-25] MEDS: APIXABAN 5 MG TABLET PO SCH (08:17)
[2019-02-25] MEDS: THIAMINE HCL 100 MG TAB PO SCH (08:17)
[2019-02-25] MEDS: METOPROLOL TARTRATE 100 MG TAB PO SCH (08:17)
[2019-02-25] MEDS: CHOLECALCIFEROL 1,000 UNITS TAB PO SCH (08:18)
[2019-02-25] MEDS: TIOTROPIUM BROMIDE 5 PUFF/90 MCG INH INH SCH (08:19)
[2019-02-25] MEDS: INSULIN ASPART 100 UNITS/ML 3 ML PEN SC SCH (08:19)
[2019-02-25] MEDS: BUDESONIDE/FORMOTEROL FUMARATE 160/4.5 60 PUFFS/INHALER INH SCH (08:26)
[2019-02-25] MEDS: IRON SUCROSE 200 MG in 0.9 % SODIUM CHLORIDE 100 ML IV SCH (08:28)
--- NOTE | 2019-02-25 09:46 | Nephrology Progress Note ---
Date of Service February 25, 2019 Assessment & Plan (1) Encounter for hemodialysis for ESRD: 68-year-old gentlemen with history of CHF with well preserved EF, requirement of high dose diuretics chronically, admitted to the hospital with volume overload, Hyperkalemia with underlying stage IV CKD most likely secondary to cardiorenal syndrome. Started on hemodialysis on 02/19/2019 via right IJ tunneled dialysis catheter. Volume status improved, blood pressure well controlled. --possible DC to rehab and outpatient dialysis at [facility]. Next HD tomorrow or friday depending on outpt dialysis schedule. --continue Venofer --left arm nephrology percussion for future AV fistula placement --dose medications for GFR less than 10 Will follow Subjective Rick was seen and examined in his room this morning. Had HD yesterday. Overall he feels well, denies any symptom, Denies shortness breath or chest pain. Appetite better, currently electrolyte, blood pressure volume status acceptable. Review of Systems Review of Systems: All systems reviewed & are unremarkable except as noted in HPI & below Physical Exam Constitutional: well developed and well nourished; no acute distress Respiratory: normal respiratory effort, lungs clear to auscultation Cardiovascular: Heart Sounds: normal S1 and normal S2 Extremities: + edema Neurologic: moves all extremities and awake; not confused Psychiatric: A+Ox3, euthymic affect Results & Data Vital Signs (Past 12 Hours) Vital Signs Temp Pulse Pulse Resp BP BP Pulse Ox 02/25/19 07:19 36.9 C 62 20 149/64 H 96 02/24/19 23:19 37.5 C 72 20 128/66 90 PG Care Time/CCT Total # of Minutes Spent Total Time Spent with Patient: Total time spent is greater than 50% in coordination of care (as documented) at patient's floor/unit and/or counseling patient:
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
[2019-02-25 11:09] VITALS: BP 128/66; PULSE 59
--- NOTE | 2019-03-02 12:52 | Coding Query ---
CONGESTIVE HEART FAILURE To Promote full compliance with coding requirements relating to patient care, physician participation is requested in all cases of cigar head piercer uncertainty. Please assist us with the following questions. A diagnosis of Congestive Heart Failure is documented in the patient's medical record. To accurately code this diagnosis and to compare patient severity, we ask that you specify the type of heart failure by placing an X within the parenthesis (x). SYSTOLIC HEART FAILURE ( ) Acute ( ) Chronic ( ) Acute on Chronic ( ) Rheumatic ( ) Unknown DIASTOLIC HEART FAILURE ( ) Acute ( x Chronic ( ) Acute on Chronic ( ) Rheumatic ( ) Unknown COMBINED SYSTOLIC AND DIASTOLIC HEART FAILURE ( ) Acute ( ) Chronic ( ) Acute on Chronic ( ) Rheumatic ( ) Unknown Was the CHF Present On Admission? Please check the appropriate box: ( ) Present on Admission ( ) Not Present On Admission ( ) Clinically undetermined Thank you Arvind ZURITA
--- NOTE | 2019-03-02 12:56 | Coding Query ---
CODING QUERY To promote full compliance with coding requirements relating to patient care, provider participation is requested in all cases of cement railroad car loader uncertainty. Please assist us with the question(s) below: Coding Question(s): Patient admitted with hyperkalemia/ CANDACE. Perm cath dialysis catheter & dialysis during this admission. Progress notes document CANDACE possibly due to Diuretics. Discharge Summary states ESRD as reason for diagnosis. Please check below the reason(s) for admission. Thanks for your help! Physician's Response(s): ___x____ ESRD CANDACE (due to suspected diuretics) Both CANDACE and ESRD Cannot Clinically Correlate Other/ please document : Principal Diagnosis: "that condition established after study, to be chiefly responsible for occasioning the admission of the patient to the hospital for care." Co-Existing Principal Diagnosis: "when two or more diagnoses equally meet the criteria for principal diagnosis as determined by the circumstances of admission, diagnostic work up, and/or therapy provided, and the Alphabetic Index, Tabular List, or another coding guideline does not provide sequencing direction, any one of the diagnoses may be sequenced first." "When the physician has documented what appears to be a current diagnosis in the body of the record, but has not included the diagnosis in the final diagnostic statement, the physician should be asked whether the diagnosis should be added." ([facility] 2 QTR90. p3-4) YUDITH
== END 2019-02-25 12:02 | DRG 683 ==
LOC: ED 10:47 → 2S 14:30 → SUATTDRO 14:30 → 2S 15:17 → 4W 02-20 16:48

== ENCOUNTER 2019-07-09 08:50 | Inpatient (IN) ==
[2019-07-09] MEDS ORDERED: OPTIRAY 320 125ml IV PRN (08:57)
--- NOTE | 2019-07-09 09:14 | CT Scan Report ---
CT angio head wo/w CLINICAL HISTORY: Stroke alert. COMPARISON STUDY: Head CT February 17, 2019. TECHNIQUE: Unenhanced and arterial phase imaging of the head was performed. Intravenous injection 120 cc Optiray 320 IV was uneventful. Sagittal and coronal reconstructions were viewed as well as jazzy l intensity projections on an independent 3-D workstation. Automated exposure control was utilized f or the study. A dose lowering technique was utilized adhering to the principles of ALARA. FINDINGS: No acute intracranial hemorrhage, midline shift or mass effect is present. Ventricular syst em is normal. The basilar cisterns are patent. There are no extra-axial collections. Old left parieta l lobe infarct is noted. There is an old infarct within the left caudate head. White matter hypodensi ty suggests small vessel disease. There are no findings to suggest acute dural sinus thrombosis or ac gary territorial infarct. There are no suspicious osseous lesions. There is minimal sinus mucosal thic kening. The bilateral M1, M2, A1 and A2 segments are patent. There is mild atherosclerotic plaque wit hin the bilateral cavernous carotids. No abrupt vessel cut off is identified. There is no intralumina l thrombus. Posterior circulation is in intact. There is mild to moderate stenosis of the left P1 seg ment. IMPRESSION: 1. No acute intracranial findings. 2. No vessel cut off or intraluminal thrombus within the intracranial circulation. 3. [id number] stenosis of the left P1 segment. 4. Old infarcts within left parietal lobe and left caudate head. ACT 112: Negative or not required by law. Electronically signed by: Moisés Givens M.D. 07/09/2019 9:13 AM
--- NOTE | 2019-07-09 09:35 | CT Scan Report ---
NECK CTA HISTORY: Stroke symptoms. stroke TECHNIQUE: Multiaxial CT images of the neck were performed following the intravenous administration o f contrast to evaluate the major cervical vessels. Maximum intensity projection images were also obta ined. All measurements were calculated based on NASCET criteria. A dose lowering technique was utili zed adhering to the principles of ALARA. COMPARISON STUDY: Carotid Doppler 01/08/2014. FINDINGS: The aortic arch and proximal great vessels are widely patent. Mild calcified plaque within the aortic arch. Emphysema. There is a focal peripheral nodular density abutting the medial border o f the right upper lobe which measures 2.5 x 1.9 cm. This is best seen image 34 of 425. There is a rig ht jugular central venous catheter. Moderate focal narrowing within the mid right subclavian artery o f approximately 60% best seen on image 127. No significant stenosis within the bilateral common carot id arteries or vertebral arteries. Moderate atherosclerotic plaque within the bilateral proximal inte rnal carotid arteries. This results in approximately 60% stenosis within the right carotid bulb and u p to 80-90% focal stenosis within the left carotid bulb best seen on image 275. The bilateral mid to distal internal carotid arteries are patent. IMPRESSION: 1. A focal peripheral nodular density abutting the medial border the right upper lobe which measures 2.5 x 1.9 cm. This could represent an infectious or neoplastic change. One-month chest CT follow-up r ecommended to ensure resolution. In addition, nonemergent pulmonary consultation recommended. 2. Emphysema. 3. Approximately 60% focal narrowing within the right carotid bulb and mid right subclavian artery. 4. Approximately 80-90% focal stenosis within the left carotid bulb. ACT 112: Negative or not required by law. Electronically signed by: James Wilson M.D. 07/09/2019 9:34 AM
[2019-07-09 09:52] LABS: Basophils # (auto) 0.03 K/uL (0-0.2); Basophils % (auto) 0.5 %; Eosinophils # (auto) 0.21 K/uL (0-0.5); Eosinophils % (auto) 3.4 %; Hematocrit (blood only) 35.6 % (42-52); Hemoglobin 11.9 g/dL (14.0-18.0); Immature Granulocytes # (auto) 0.01 K/uL (0.00-0.02); Immature Granulocytes % (auto) 0.2 %; Lymphocytes # (auto) 0.63 K/uL (1.2-3.4); Lymphocytes % (auto) 10.1 %; Mean Corpuscular Hemoglobin 31.2 pg (25-34); Mean Corpuscular Hgb Conc 33.4 g/dL (32-36); Mean Corpuscular Volume 93.4 fL (80-100); Mean Platelet Volume 11.3 fL (7.4-10.4); Monocytes # (auto) 0.58 K/uL (0.11-0.59); Monocytes % (auto) 9.3 %; Neutrophils # (auto) 4.78 K/uL (1.4-6.5); Neutrophils % (auto) 76.5 %; Platelet Count 135 K/uL (130-400); RDW Coefficient of Variation 15.3 % (11.5-14.5); RDW Standard Deviation 51.2 fL (36.4-46.3); Red Blood Count 3.81 M/uL (4.7-6.1); White Blood Count 6.24 K/uL (4.8-10.8)
--- NOTE | 2019-07-09 09:53 | XRay Report ---
XR chest 1V portable HISTORY: Shortness of breath. stroke, diaysis, poss chf COMPARISON: Chest 05/04/2019. FINDINGS: No pneumothorax. No pleural effusions. The heart remains enlarged. There is left-sided dual -chamber pacemaker. Right jugular catheter terminates at the SVC. A few bibasilar linear densities fa vor subsegmental atelectasis. The right upper lobe nodular density seen on the prior chest CTA is not well visualized by this modality. There is mild central pulmonary vascular congestion without overt edema. This has progressed. IMPRESSION: Interval progression of the mild central pulmonary vascular congestion without overt edema. Stable ca rdiomegaly. ACT 112: Negative or not required by law. Electronically signed by: James Wilson M.D. 07/09/2019 9:52 AM
[2019-07-09 10:04] LABS: INR 2.9 (0.9-1.1); Partial Thromboplastin Ratio 1.5; Partial Thromboplastin Time 41.1 Seconds (21.0-31.0)
[2019-07-09 10:29] LABS: Alanine Aminotransferase 22 U/L (12-78); Albumin Globulin Ratio 0.7 (0.9-2); Albumin Level 3.1 gm/dl (3.4-5.0); Alkaline Phosphatase 137 U/L (45-117); Aspartate Aminotransferase 15 U/L (15-37); Bilirubin,Total 0.4 mg/dl (0.2-1); Blood Urea Nitrogen 53 mg/dl (7-18); Calcium 8.2 mg/dl (8.5-10.1); Carbon Dioxide 26 mmol/L (21-32); Chloride 99 mmol/L (98-107); Creatinine Clr Calc Pharmacy 11.7 ml/min; Est GFR (African American) 7.6; Est GFR (Non-African American) 6.6; Globulin 4.2 gm/dl (2.5-4.0); Glucose 110 mg/dl (70-99); Magnesium 1.8 mg/dl (1.8-2.4); Potassium 5.4 mmol/L (3.5-5.1); Sodium 135 mmol/L (136-145); Total Protein 7.3 gm/dl (6.4-8.2); Troponin I < 0.015 ng/ml (0-0.045)
--- NOTE | 2019-07-09 11:00 | History & Physical Report ---
Date of Service July 09, 2019 Assessment & Plan (1) Stroke-like symptoms: Uncertain etiology, possibly CVA vs TIA vs hyperK CTA h/n noted for significant stenosis on L carotid bulb, vascular c/s pending Unable to obtain MRI due to pacer CXR neg for infection with UA pending and WBC WNL, afebrile Will hold on neuro eval to see if sx clear further s/p HD Takes aspirin 81mg at baseline due to hx of prior CVA, continue Lipids, A1c pending (2) Acute hyperkalemia: Monitor s/p HD (3) Hypertension: continue home meds (4) Gout: continue home meds (5) 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 Carter, c/s pending Due for HD on day of admission but came to the ED for above sx and did not receive (9) Paroxysmal atrial fibrillation: continue home meds Coumadin dosing 3.75mg /, 2.5mg other days INR WNL on admission (10) Type 2 diabetes mellitus without complication: Glipizide as outpt, hold given current status A1c pending SSI PRN (11) Pacemaker: Unable to obtain MRI (12) History of stroke: No event time known, dx via CT in the past Aspirin 81mg at baseline (13) PTSD (post-traumatic stress disorder): continue home meds (14) DVT prophylaxis: Coumadin at baseline History of Present Illness Primary Care Provider: Toño Fry MD 69 y/o M c/o slurred speech and weakness. Pt states that he had a usual day yesterday and was able to do his daily activities at his baseline. states that around 9p last night, pt was sitting in a chair and noted to be dizzy. Further questioning notes that this means lightheaded and not room spinning. This happens at times, especially when moving from seated to standing, so it was not very concerning. Pt noted that he was very weak and having difficulty getting out of the chair. He did not sleep well last night until around 2a. This AM, he again noted lightheadedness and he seemed confused with slurred speech to his . He was even more weak than last night, so he was brought to the ED. Pt states he feels very tired. He feels like he is struggling to pick his arms up. He can do it, but it takes more effort than usual. He does not feel confused. feels that his speech is not its usual, but better. No further confusion. Pt has had no other new concerns recently. Pt did not take his AM meds yet. He takes medications for PTSD and if he misses those, he becomes "more emotional", which family feels is happening in the ED. Pt did not have breakfast, but is hungry. Bedside swallow eval WNL per nursing. Today is a usual HD day for pt and sx started prior to leaving for this appt. Pt denies fever, SOB, chest pain, abd pain, n/v/c/d, LE pain or swelling. Allergies Allergy/AdvReac Type Severity Reaction Status Date / Time promethazine Allergy Unknown UNCONTROLLED Verified 07/09/19 09:55 MUSCLE MOVEMENTS codeine AdvReac Unknown "trips me Verified 07/09/19 09:55 out" Home Medications Home Medications Medication Instructions Recorded Confirmed Type allopurinol 300 mg PO QAM 02/05/18 07/09/19 History aspirin [Aspir-81] 81 mg PO QAM 02/05/18 07/09/19 History atorvastatin 80 mg PO 02/05/18 07/09/19 History loratadine [Claritin] 10 mg PO QAM 02/05/18 07/09/19 History melatonin 10 mg PO 02/05/18 07/09/19 History nitroglycerin 0.3 mg SUBLINGUAL DIRECTED PRN 02/05/18 07/09/19 History pantoprazole 40 mg PO QAM 02/05/18 07/09/19 History PreserVision AREDS-2 1 tab PO QAM 02/16/18 07/09/19 History cholecalciferol (vitamin D3) 2,000 unit PO QAM 02/16/18 07/09/19 History [Vitamin D3] cyanocobalamin (vitamin B-12) 1,000 mcg PO QAM 02/16/18 07/09/19 History [Vitamin B-12] trazodone 150 mg PO 02/16/18 07/09/19 History hydralazine 25 mg PO TID 05/15/18 07/09/19 History thiamine HCl (vitamin B1) 100 mg 100 mg PO QAM tab 12/22/18 07/09/19 History tablet albuterol sulfate 2 puff INHALATION Q4H PRN 02/12/19 07/09/19 History budesonide-formoterol 2 puff INHALATION BID 02/12/19 07/09/19 History fluticasone propionate 1 spray INTRANASAL DAILY PRN 02/12/19 07/09/19 History isosorbide mononitrate 30 mg PO QAM 02/12/19 07/09/19 History docusate sodium 100 mg PO UD PRN 02/13/19 07/09/19 History tiotropium bromide 1 cap INHALATION QAM 02/13/19 07/09/19 History glipizide 10 mg PO QAM 04/22/19 07/09/19 History warfarin 2.5 mg PO SUMOWETH@1600 04/22/19 07/09/19 History clonazepam [Klonopin] 0.5 mg PO DAILY PRN 05/03/19 07/09/19 History hydroxyzine HCl 10 mg PO HS 05/04/19 07/09/19 History ascorbic acid (vitamin C) 1,000 mg PO QAM 07/09/19 07/09/19 History sevelamer carbonate 800 mg PO TIDM 07/09/19 07/09/19 History umeclidinium 1 inh INHALATION QAM 07/09/19 07/09/19 History venlafaxine 75 mg PO QAM 07/09/19 07/09/19 History warfarin 5 mg PO TUSA@1600 07/09/19 07/09/19 History Past Med/Surg History Medical History Anxiety (Chronic) Atrial fibrillation (Chronic) DX 2006 - NO HX CARDIOVERSION Cancer (Resolved) HX OF BLADDER HX OF PROSTATE Cardiac pacemaker in situ (Resolved) Chronic back pain (Chronic) Chronic kidney disease (Chronic) ESRD Chronic obstructive pulmonary disease (Chronic) on 2 L continuous O2, 3L HS with BiPAP (not using BiPAP currently due to mask issues) Coronary arteriosclerosis (Chronic) S/P single stent 2013, denies [place]. Depression (Chronic) Diabetes mellitus, type 2 (Chronic) Dialysis patient MON, WED AND FRI (RIGHT SHOULDER AREA CURRENT ACCESS) GERD (gastroesophageal reflux disease) (Chronic) Gout continue allopurinol for prophylaxis Hiatal hernia (Chronic) History of CVA (cerebrovascular accident) 11/2017 CVA. Per pt's pt had TIA 11/2018 (possibly CVA?). Residual left sided weakness History of kidney stones HTN (hypertension), benign (Resolved) Hyperlipidemia (Chronic) Osteoarthritis (Chronic) Pacemaker (Chronic) 2011 IMPLANTED FOR A-FIB Peripheral neuropathy (Chronic) Post traumatic stress disorder (Chronic) Presence of urostomy Sleep apnea (Chronic) BIPAP Stroke (Resolved) CT SCAN NOVEMBER 2017 SHOWED EVIDENCE OF AN OLD STROKE ? EXACT DATE NOVEMBER 2017 SLURRED SPEECH/LEFT FOOT WEAKNESS CURRENTLY STILL HAS WEAKNESS IN LEFT SIDE Transient ischemic attack (TIA) (Resolved) HX "MINI STROKES" Surgical History History of biopsy of bladder (Resolved) History of cardiac cath (Resolved) STENT PLACED 2011 History of cataract surgery (Resolved) RT/LEFT History of cholecystectomy (Resolved) History of colonoscopy History of heart artery stent (Resolved) History of laminectomy (Resolved) LUMBAR History of prostatectomy (Resolved) History of tooth extraction (Resolved) History of urologic surgery FOR KIDNEY STONE History of urostomy BLADDER REMOVED D/T CANCER STOMA REVISED Pericardial disease (Resolved) PERICARDIAL WINDOW/MICROSCOPIC ([facility]) 2013 Family History (Updated 07/09/19 @ 11:06 by Regina Vegas DO) Other Family history non-contributory Social History (Updated 07/09/19 @ 11:06 by Regina Vegas DO) Preferred Language: [place] Communication Ability: Effective 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 Beliefs That Will Affect Care: None marital status: Current Living Situation: Spouse Current Living Situation Comment: pt and his live with their dtr current occupational status: retired Other Information That Helps Us Care for You: No Feels Safe at Home: Yes Safety Concerns: Feels Safe At This Time Smoking Status: Former smoker Tobacco Type: cigarettes ; Smoking End Date: 2000 ; Second Hand Exposure: No ; Hx Alcohol Use: No Hx Substance Use: No Review of Systems Review of Systems: Pertinent positives and negatives reviewed in HPI--all others negative Physical Exam Constitutional: WD/WN, vitals as above Eyes: normal visual baugh by confrontation and + anicteric sclerae Neck: normal visual inspection and trachea midline Respiratory: normal respiratory effort, lungs clear to auscultation Cardiovascular: Rate/Rhythm: regular rate and regular rhythm Gastrointestinal (Abdomen): Inspection/Auscultation: abdomen not distended Percussion/Palpation: abdomen soft; abdomen nontender Musculoskeletal: Head/Neck/Chest: normocephalic and head atraumatic negative for edema, peripheral pulses intact Skin: no rashes, warm and dry Neurologic: CN's II-XI intact bilaterally and awake; not confused Speech / Cognition: + abnormal speech (slightly slurred but dentures are not in place); normal cognition LE strength against resistance 4/5 in all planes, shellfish shucker strength 4/5 b/l Psychiatric: A+Ox3, euthymic affect Results & Data Vital Signs (Past 12 Hours) Vital Signs Temp Pulse Pulse Resp BP BP Pulse Ox 07/09/19 10:31 60 14 178/75 H 07/09/19 10:30 60 12 98 07/09/19 10:20 60 17 99 07/09/19 10:16 60 17 160/72 H 99 07/09/19 10:10 60 17 99 07/09/19 10:01 60 16 148/71 H 99 07/09/19 10:00 60 15 99 07/09/19 09:52 60 22 161/67 H 99 07/09/19 09:50 60 18 100 07/09/19 09:40 71 14 96 07/09/19 09:32 100 07/09/19 09:30 64 12 100 07/09/19 09:23 60 16 98 07/09/19 09:05 36.5 C 62 61 18 127/57 L 127/57 L 100 07/09/19 09:04 68 19 127/57 L Diagnostic Findings CTA head/neck: L carotid bulb 80-90% stenosis R carotid bulb 60% stenosis RUL density of undetermined significance ECG Additional Comments: ventricular paced Code Status & VTE Plan Code Status Full code, although pt states no prolonged mechanical life support, feeding tubes, etc. is present and agrees, states that pt has a living will VTE Prophylaxis Plan VTE Prophylaxis will be ordered: Yes PG Care Time/CCT Total # of Minutes Spent Total Time Spent with Patient: Total time spent is greater than 50% in coordination of care (as documented) at patient's floor/unit and/or counseling patient: Coding Level of Care Code 39360 Initial Inpt Care Lvl 3 Diagnoses Stroke-like symptoms R29.90 Acute hyperkalemia E87.5 Hypertension I10 Gout M10.9 Thiamine deficiency E51.9 Depression with anxiety F41.8 COPD (chronic obstructive pulmonary disease) J44.9 COPD type: unspecified COPD CKD (chronic kidney disease), stage III N18.3 Paroxysmal atrial fibrillation I48.0 Type 2 diabetes mellitus without complication E11.9 Pacemaker Z95.0 History of stroke Z86.73 PTSD (post-traumatic stress disorder) F43.10 DVT prophylaxis Z29.9 (1) COPD (chronic obstructive pulmonary disease) COPD type: unspecified COPD Qualified Code(s): J44.9 - Chronic obstructive pulmonary disease, unspecified
[2019-07-09] MEDS ORDERED: SODIUM CHLORIDE 0.9% 1000ML 1,000 ML IV PRN (11:12)
--- NOTE | 2019-07-09 11:20 | Emergency Department Note ---
Entered by Claude Marcum acting as a scribe for History of Present Illness General Chief complaint: Stroke Alert Source: family and EMS History of Present Illness Onset (ago): hour(s) (last night at 2100) Location: mouth Pain Consistency: + other (worsening) Quality: + other (slurred speech) Associated symptoms: + weakness (left sided facial droop and weakness) and + other (dizzy) The patient is a 69 y/o male who presents to the ED w/ CC of worsening slurred speech beginning last night at 2100. EMS states the patient's last time well known was at 2100 last night, approximately 12 hours ago. They report the patient became ill and dizzy. EMS notes the patient had left sided weakness, slurred speech, and left sided facial droop. They state the patient is a dialysis patient and is due for dialysis today. EMS reports he the patient takes Coumadin. His BSG was 96 for EMS. The patient's states at 2100 he became dizzy and could not get up. She reports he normally does not sleep much before dialysis and sometimes seems loopy. The patient notes he had speech issues last night that worsened this morning. Home Medications Home Medications Medication Instructions Recorded Confirmed Type allopurinol 300 mg PO QAM 02/05/18 07/09/19 History aspirin [Aspir-81] 81 mg PO QA 02/05/18 07/09/19 History atorvastatin 80 mg PO 02/05/18 07/09/19 History loratadine [Claritin] 10 mg PO QAM 02/05/18 07/09/19 History melatonin 10 mg PO 02/05/18 07/09/19 History nitroglycerin 0.3 mg SUBLINGUAL DIRECTED PRN 02/05/18 07/09/19 History pantoprazole 40 mg PO QAM 02/05/18 07/09/19 History PreserVision AREDS-2 1 tab PO QA 02/16/18 07/09/19 History cholecalciferol (vitamin D3) 2,000 unit PO QA 02/16/18 07/09/19 History [Vitamin D3] cyanocobalamin (vitamin B-12) 1,000 mcg PO QAM 02/16/18 07/09/19 History [Vitamin B-12] trazodone 150 mg PO 02/16/18 07/09/19 History hydralazine 25 mg PO TID 05/15/18 07/09/19 History thiamine HCl (vitamin B1) 100 mg 100 mg PO QAM tab 12/22/18 07/09/19 History tablet albuterol sulfate 2 puff INHALATION Q4H PRN 02/12/19 07/09/19 History budesonide-formoterol 2 puff INHALATION BID 02/12/19 07/09/19 History fluticasone propionate 1 spray INTRANASAL DAILY PRN 02/12/19 07/09/19 History isosorbide mononitrate 30 mg PO QAM 02/12/19 07/09/19 History docusate sodium 100 mg PO UD PRN 02/13/19 07/09/19 History tiotropium bromide 1 cap INHALATION QAM 02/13/19 07/09/19 History glipizide 10 mg PO QAM 04/22/19 07/09/19 History warfarin 2.5 mg PO SUMOWETH@1600 04/22/19 07/09/19 History clonazepam [Klonopin] 0.5 mg PO DAILY PRN 05/03/19 07/09/19 History hydroxyzine HCl 10 mg PO HS 05/04/19 07/09/19 History ascorbic acid (vitamin C) 1,000 mg PO QAM 07/09/19 07/09/19 History sevelamer carbonate 800 mg PO TIDM 07/09/19 07/09/19 History umeclidinium 1 inh INHALATION QAM 07/09/19 07/09/19 History venlafaxine 75 mg PO QAM 07/09/19 07/09/19 History warfarin 5 mg PO TUSA@1600 07/09/19 07/09/19 History Allergies Allergy/AdvReac Type Severity Reaction Status Date / Time promethazine Allergy Unknown UNCONTROLLED Verified 07/09/19 09:55 MUSCLE MOVEMENTS codeine AdvReac Unknown "trips me Verified 07/09/19 09:55 out" Past Med/Surg History Medical History (Updated 07/09/19 @ 13:17 by Joseline Freeman PA-C) Anxiety (Chronic) Atrial fibrillation (Chronic) DX 2006 - NO HX CARDIOVERSION Cancer (Resolved) HX OF BLADDER HX OF PROSTATE Cardiac pacemaker in situ (Resolved) Carotid stenosis, bilateral Chronic back pain (Chronic) Chronic kidney disease (Chronic) ESRD Chronic obstructive pulmonary disease (Chronic) on 2 L continuous O2, 3L HS with BiPAP (not using BiPAP currently due to mask issues) Coronary arteriosclerosis (Chronic) S/P single stent 2013, denies NE. Depression (Chronic) Diabetes mellitus, type 2 (Chronic) Dialysis patient MON, WED AND FRI (RIGHT SHOULDER AREA CURRENT ACCESS) ESRD (end stage renal disease) on dialysis GERD (gastroesophageal reflux disease) (Chronic) Gout continue allopurinol for prophylaxis Hiatal hernia (Chronic) History of CVA (cerebrovascular accident) 11/2017 CVA. Per pt's pt had TIA 11/2018 (possibly CVA?). Residual left sided weakness History of kidney stones HTN (hypertension), benign (Resolved) Hyperlipidemia (Chronic) Hypertension Osteoarthritis (Chronic) Pacemaker (Chronic) 2011 IMPLANTED FOR A-FIB Peripheral neuropathy (Chronic) Post traumatic stress disorder (Chronic) Presence of urostomy Sleep apnea (Chronic) BIPAP Stroke (Resolved) CT SCAN NOVEMBER 2017 SHOWED EVIDENCE OF AN OLD STROKE ? EXACT DATE NOVEMBER 2017 SLURRED SPEECH/LEFT FOOT WEAKNESS CURRENTLY STILL HAS WEAKNESS IN LEFT SIDE TIA (transient ischemic attack) Transient ischemic attack (TIA) (Resolved) HX "MINI STROKES" Surgical History History of biopsy of bladder (Resolved) History of cardiac cath (Resolved) STENT PLACED 2011 History of cataract surgery (Resolved) RT/LEFT History of cholecystectomy (Resolved) History of colonoscopy History of heart artery stent (Resolved) History of laminectomy (Resolved) LUMBAR History of prostatectomy (Resolved) History of tooth extraction (Resolved) History of urologic surgery FOR KIDNEY STONE History of urostomy BLADDER REMOVED D/T CANCER STOMA REVISED Pericardial disease (Resolved) PERICARDIAL WINDOW/MICROSCOPIC ([facility]) 2013 Family History Other Family history non-contributory Social History Preferred Language: Bengali Communication Ability: Effective Garbage Man Required: No Beliefs That Will Affect Care: None marital status: Current Living Situation: Spouse Current Living Situation Comment: pt and his live with their dtr current occupational status: retired Feels Safe at Home: Yes Smoking Status: Former smoker Tobacco Type: cigarettes ; Second Hand Exposure: No ; Hx Alcohol Use: No Hx Substance Use: No Review of Systems See HPI for pertinent positives & negatives. and A total of 10 systems reviewed and were otherwise negative Physical Exam Vital Signs Vital Signs - 24 hr 07/09/19 09:04 07/09/19 09:05 07/09/19 09:23 Temperature 36.5 C Temperature Source Oral Pulse Rate 68 62 60 Pulse Rate [Apical] 61 Pulse Rate from SpO2 Sensor 61 61 Respiratory Rate 19 18 16 Blood Pressure 127/57 L 127/57 L Blood Pressure [Left Arm] 127/57 L Blood Pressure Mean 106 80 Blood Pressure Mean [Left Arm] 80 Pulse Oximetry 100 98 Oxygen Delivery Method Nasal Cannula Oxygen Flow Rate 2 Sepsis Recent Fever Within 48 Hours No Sepsis New/Unexplained Change in Mental Status Yes Sepsis Action Taken by Nursing No Action Required 07/09/19 09:30 07/09/19 09:32 07/09/19 09:40 Temperature Temperature Source Pulse Rate 64 71 Pulse Rate [Apical] Pulse Rate from SpO2 Sensor 60 72 Respiratory Rate 12 14 Blood Pressure Blood Pressure [Left Arm] Blood Pressure Mean Blood Pressure Mean [Left Arm] Pulse Oximetry 100 100 96 Oxygen Delivery Method Nasal Cannula Oxygen Flow Rate 2 Sepsis Recent Fever Within 48 Hours Sepsis New/Unexplained Change in Mental Status Sepsis Action Taken by Nursing 07/09/19 09:50 07/09/19 09:52 07/09/19 10:00 Temperature Temperature Source Pulse Rate 60 60 60 Pulse Rate [Apical] Pulse Rate from SpO2 Sensor 60 60 60 Respiratory Rate 18 22 15 Blood Pressure 161/67 H Blood Pressure [Left Arm] Blood Pressure Mean 93 Blood Pressure Mean [Left Arm] Pulse Oximetry 100 99 99 Oxygen Delivery Method Oxygen Flow Rate Sepsis Recent Fever Within 48 Hours Sepsis New/Unexplained Change in Mental Status Sepsis Action Taken by Nursing 07/09/19 10:01 07/09/19 10:10 07/09/19 10:16 Temperature Temperature Source Pulse Rate 60 60 60 Pulse Rate [Apical] Pulse Rate from SpO2 Sensor 60 59 L 60 Respiratory Rate 16 17 17 Blood Pressure 148/71 H 160/72 H Blood Pressure [Left Arm] Blood Pressure Mean 117 117 Blood Pressure Mean [Left Arm] Pulse Oximetry 99 99 99 Oxygen Delivery Method Oxygen Flow Rate Sepsis Recent Fever Within 48 Hours Sepsis New/Unexplained Change in Mental Status Sepsis Action Taken by Nursing 07/09/19 10:20 07/09/19 10:30 07/09/19 10:31 Temperature Temperature Source Pulse Rate 60 60 60 Pulse Rate [Apical] Pulse Rate from SpO2 Sensor 60 60 57 L Respiratory Rate 17 12 14 Blood Pressure 178/75 H Blood Pressure [Left Arm] Blood Pressure Mean 90 Blood Pressure Mean [Left Arm] Pulse Oximetry 99 98 Oxygen Delivery Method Oxygen Flow Rate Sepsis Recent Fever Within 48 Hours Sepsis New/Unexplained Change in Mental Status Sepsis Action Taken by Nursing GENERAL: Patient is in no acute distress. HEENT: No acute trauma, normocephalic atraumatic, mucous membranes moist, no nasal congestion, no scleral icterus. NECK: No stridor, no adenopathy, no meningismus, trachea is midline. LUNGS: Clear to auscultation bilaterally, no wheeze, no rhonchi, breath sounds equal. HEART: Without murmurs gallops or rubs, regular rate and rhythm. ABDOMEN: Soft, nontender, bowel sounds positive, no hernias, no peritonitis. EXTREMITIES: No cyanosis or edema, full range of motion of all the joints without pain or difficulty, no signs for acute trauma. Mild bilateral pedal edema. NEUROLOGIC: Awake. Alert. Left facial droop. Slurred speech with some expressive aphasia. Difficulty with left arm cerebellar function. Left arm appears weaker than the right and the legs appear equally weak. SKIN: No rash, no jaundice, no diaphoresis. Course Course 0849: Past medical records reviewed. The patient was evaluated in room B01. A complete history and physical examination was performed. A STROKE alert was initiated in the field. The patient was taken directly to CT. 0857: I discussed the patient's case with Dr. Adamson, [facility] Neurologist. He will look at the imaging results and then evaluate the patient via the stroke cart. The patient is out of the tPA window but may qualify for a clot retrieval if it is a large vessel occlusion. Transfer may not be available though given the weather conditions. 0948: I spoke with Dr. Adamson again. He notes the patient is not a candidate for tPA or clot retrieval and may be evaluated by the hospitalist for a stroke work- up as an inpatient. 1012: Upon reevaluation, the patient is resting comfortably. I discussed laboratory and radiographic results with him. He verbalized agreement of the treatment plan. The patient will be evaluated for further management and care. 1059: I reviewed the patient's case with Dr. Thomson, [facility] Hospitalist. He will evaluate the patient for further management. 1108: I discussed the patient's case with Dr. Carter, Nephrology. He will evaluate the patient. Administered Medications Allopurinol (Zyloprim) 300 mg PO QAM [facility] Stop: 08/08/19 11:46 Last Admin: 07/09/19 13:56 Dose: Not Given Documented by: [id number] Aspirin (Ecotrin Ectab) 81 mg PO QAM [facility] Stop: 08/08/19 11:46 Last Admin: 07/09/19 13:44 Dose: 81 mg Documented by: [id number] Hydralazine HCl (Apresoline) 25 mg PO TID [facility] Stop: 08/08/19 13:59 Last Admin: 07/09/19 13:57 Dose: Not Given Documented by: [id number] Insulin Aspart (Novolog Flexpen) 0 units SC ACHS [facility] Stop: 08/08/19 11:46 Last Admin: 07/09/19 12:56 Dose: Not Given Documented by: [id number] Cosigned by: [id number] Ioversol (Optiray 320 125ml) 120 ml IV ONCE PRN PRN Reason: Interaction Checking Stop: 07/13/19 08:56 Last Admin: 07/09/19 08:58 Dose: 120 ml Documented by: [id number] Pantoprazole Sodium (Protonix) 40 mg PO QAM [facility] Stop: 08/08/19 11:46 Last Admin: 07/09/19 13:44 Dose: Not Given Documented by: [id number] Sevelamer HCl (Renagel) 800 mg PO TIDM [facility] Stop: 08/08/19 11:59 Last Admin: 07/09/19 12:39 Dose: 800 mg Documented by: [id number] Venlafaxine HCl (Effexor Extended Release) 75 mg PO QAM [facility] Stop: 08/08/19 11:46 Last Admin: 07/09/19 12:39 Dose: 75 mg Documented by: [id number] Critical Care Time Critical Care Time: Yes Total Critical Care Time: 31 Critical Care Note: I have personally spent greater than 31 minutes of critical care time in the direct management of this patient. This includes bedside care, interpretation of diagnostic studies, and testing, discussion with consultants, patient, and family members, and other required patient management activities. This 31 minutes is in excess of all separately billable procedures. Medical Decision Making Differential Diagnosis Differential diagnosis includes: stroke, intracranial bleeding, electrolyte imbalance, metabolic encephalopathy, medication reaction, infection. Medical Records Attestation: I reviewed the patient's medical records. Home Medications Current Medication List: was personally reviewed by me Laboratory Data Attestation: I reviewed the patient's lab results. Result diagrams: 07/09/19 09:40 07/09/19 09:40 Lab Results 07/09/19 07/09/19 07/09/19 Range/Units 09:12 09:40 09:40 WBC 6.24 (4.8-10.8) K/uL RBC 3.81 L (4.7-6.1) M/uL Hgb 11.9 L (14.0-18.0) g/dL Hct 35.6 L (42-52) % MCV 93.4 (80-100) fL MCH 31.2 (25-34) pg MCHC 33.4 (32-36) g/dL RDW Std Deviation 51.2 H (36.4-46.3) fL RDW Coeff of Dacia 15.3 H (11.5-14.5) % Plt Count 135 (130-400) K/uL MPV 11.3 H (7.4-10.4) fL Immature Gran % (Auto) 0.2 % Neut % (Auto) 76.5 % Lymph % (Auto) 10.1 % Hubbard % (Auto) 9.3 % Eos % (Auto) 3.4 % Baso % (Auto) 0.5 % Immature Gran # (Auto) 0.01 (0.00-0.02) K/uL Neut # (Auto) 4.78 (1.4-6.5) K/uL Lymph # (Auto) 0.63 L (1.2-3.4) K/uL Hubbard # (Auto) 0.58 (0.11-0.59) K/uL Eos # (Auto) 0.21 (0-0.5) K/uL Baso # (Auto) 0.03 (0-0.2) K/uL PT 28.0 H (9.0-12.0) Seconds INR 2.9 H (0.9-1.1) APTT 41.1 H (21.0-31.0) Seconds PTT Ratio 1.5 Sodium (136-145) mmol/L Potassium (3.5-5.1) mmol/L Chloride (98-107) mmol/L Carbon Dioxide (21-32) mmol/L Anion Gap (3-11) BUN (7-18) mg/dl Creatinine (0.6-1.4) mg/dl Est Cr Clr Drug Dosing ml/min Est GFR ( Amer) Est GFR (Non-Af Amer) BUN/Creatinine Ratio (10-20) Glucose (70-99) mg/dl POC Glucose 108 H (70-99) mg/dl Calcium (8.5-10.1) mg/dl Magnesium (1.8-2.4) mg/dl Total Bilirubin (0.2-1) mg/dl AST (15-37) U/L ALT (12-78) U/L Alkaline Phosphatase (45-117) U/L Troponin I (0-0.045) ng/ml Total Protein (6.4-8.2) gm/dl Albumin (3.4-5.0) gm/dl Globulin (2.5-4.0) gm/dl Albumin/Globulin Ratio (0.9-2) Blood Type Antibody Screen 07/09/19 07/09/19 Range/Units 09:40 09:40 WBC (4.8-10.8) K/uL RBC (4.7-6.1) M/uL Hgb (14.0-18.0) g/dL Hct (42-52) % MCV (80-100) fL MCH (25-34) pg MCHC (32-36) g/dL RDW Std Deviation (36.4-46.3) fL RDW Coeff of Dacia (11.5-14.5) % Plt Count (130-400) K/uL MPV (7.4-10.4) fL Immature Gran % (Auto) % Neut % (Auto) % Lymph % (Auto) % Hubbard % (Auto) % Eos % (Auto) % Baso % (Auto) % Immature Gran # (Auto) (0.00-0.02) K/uL Neut # (Auto) (1.4-6.5) K/uL Lymph # (Auto) (1.2-3.4) K/uL Hubbard # (Auto) (0.11-0.59) K/uL Eos # (Auto) (0-0.5) K/uL Baso # (Auto) (0-0.2) K/uL PT (9.0-12.0) Seconds INR (0.9-1.1) APTT (21.0-31.0) Seconds PTT Ratio Sodium 135 L (136-145) mmol/L Potassium 5.4 H (3.5-5.1) mmol/L Chloride 99 (98-107) mmol/L Carbon Dioxide 26 (21-32) mmol/L Anion Gap 10.0 (3-11) BUN 53 H (7-18) mg/dl Creatinine 7.53 H* (0.6-1.4) mg/dl Est Cr Clr Drug Dosing 11.7 ml/min Est GFR ( Amer) 7.6 Est GFR (Non-Af Amer) 6.6 BUN/Creatinine Ratio 7.0 L (10-20) Glucose 110 H (70-99) mg/dl POC Glucose (70-99) mg/dl Calcium 8.2 L (8.5-10.1) mg/dl Magnesium 1.8 (1.8-2.4) mg/dl Total Bilirubin 0.4 (0.2-1) mg/dl AST 15 (15-37) U/L ALT 22 (12-78) U/L Alkaline Phosphatase 137 H (45-117) U/L Troponin I < 0.015 (0-0.045) ng/ml Total Protein 7.3 (6.4-8.2) gm/dl Albumin 3.1 L (3.4-5.0) gm/dl Globulin 4.2 H (2.5-4.0) gm/dl Albumin/Globulin Ratio 0.7 L (0.9-2) Blood Type O Negative Antibody Screen NEGATIVE Imaging Data Radiologist's Impression: Radiology results as stated below per my review and the radiologist's interpretation: CT angio head wo/w CLINICAL HISTORY: Stroke alert. COMPARISON STUDY: Head CT February 17, 2019. TECHNIQUE: Unenhanced and arterial phase imaging of the head was performed. Intravenous injection 120 cc Optiray 320 IV was uneventful. Sagittal and coronal reconstructions were viewed as well as maximal intensity projections on an independent 3-D workstation. Automated exposure control was utilized for the study. A dose lowering technique was utilized adhering to the principles of ALARA. FINDINGS: No acute intracranial hemorrhage, midline shift or mass effect is present. Ventricular system is normal. The basilar cisterns are patent. There are no extra-axial collections. Old left parietal lobe infarct is noted. There is an old infarct within the left caudate head. White matter hypodensity suggests small vessel disease. There are no findings to suggest acute dural sinus thrombosis or acute territorial infarct. There are no suspicious osseous lesions. There is minimal sinus mucosal thickening. The bilateral M1, M2, A1 and A2 segments are patent. There is mild atherosclerotic plaque within the bilateral cavernous carotids. No abrupt vessel cut off is identified. There is no intraluminal thrombus. Posterior circulation is in intact. There is mild to moderate stenosis of the left P1 segment. IMPRESSION: 1. No acute intracranial findings. 2. No vessel cut off or intraluminal thrombus within the intracranial circulation. 3. [id number]-[id number] stenosis of the left P1 segment. 4. Old infarcts within left parietal lobe and left caudate head. ACT 112: Negative or not required by law. Electronically signed by: Moisés Givens M.D. 07/09/2019 9:13 AM NECK CTA HISTORY: Stroke symptoms. stroke TECHNIQUE: Multiaxial CT images of the neck were performed following the intravenous administration of contrast to evaluate the major cervical vessels. Maximum intensity projection images were also obtained. All measurements were calculated based on NASCET criteria. A dose lowering technique was utilized adhering to the principles of ALARA. COMPARISON STUDY: Carotid Doppler 01/08/2014. FINDINGS: The aortic arch and proximal great vessels are widely patent. Mild calcified plaque within the aortic arch. Emphysema. There is a focal peripheral nodular density abutting the medial border of the right upper lobe which measures 2.5 x 1.9 cm. This is best seen image 34 of 425. There is a right jugular central venous catheter. Moderate focal narrowing within the mid right subclavian artery of approximately 60% best seen on image 127. No significant stenosis within the bilateral common carotid arteries or vertebral arteries. Mo derate atherosclerotic plaque within the bilateral proximal internal carotid arteries. This results in approximately 60% stenosis within the right carotid bulb and up to 80-90% focal stenosis within the left carotid bulb best seen on image 275. The bilateral mid to distal internal carotid arteries are patent. IMPRESSION: 1. A focal peripheral nodular density abutting the medial border the right upper lobe which measures 2.5 x 1.9 cm. This could represent an infectious or neoplastic change. One-month chest CT follow-up recommended to ensure resolution. In addition, nonemergent pulmonary consultation recommended. 2. Emphysema. 3. Approximately 60% focal narrowing within the right carotid bulb and mid right subclavian artery. 4. Approximately 80-90% focal stenosis within the left carotid bulb. ACT 112: Negative or not required by law. Electronically signed by: James Wilson M.D. 07/09/2019 9:34 AM XR chest 1V portable HISTORY: Shortness of breath. stroke, diaysis, poss chf COMPARISON: Chest 05/04/2019. FINDINGS: No pneumothorax. No pleural effusions. The heart remains enlarged. There is left-sided dual-chamber pacemaker. Right jugular catheter terminates at the SVC. A few bibasilar linear densities favor subsegmental atelectasis. The right upper lobe nodular density seen on the prior chest CTA is not well visualized by this modality. There is mild central pulmonary vascular congestion without overt edema. This has progressed. IMPRESSION: Interval progression of the mild central pulmonary vascular congestion without overt edema. Stable cardiomegaly. ACT 112: Negative or not required by law. Electronically signed by: James Wilson M.D. 07/09/2019 9:52 AM ECG Data Attestation: I personally reviewed and interpreted this ECG as follows: Indication: + weakness Rate (beats per minute): 78 Rhythm: + other (ventricularly paced) ECG ST segments: no ST elevation ECG Findings: + Other (QTc of 551); no PVCs Blood Pressure Blood Pressure Findings: Elevated blood pressure Blood Pressure Disposition: further management by hospitalist [facility] Narrative There is no leukocytosis. The patient is mildly anemic with a hemoglobin of 11.9. There is a normal platelet count. INR is elevated consistent with his Coumadin use. Potassium slightly high at 5.4. Creatinine was elevated consistent with his need for dialysis. No concerning liver enzyme elevation. EKG shows a ventricular pacemaker, no acute ischemia. Cardiac enzyme testing x1 is not consistent with acute cardiac injury. Chest film shows some mild p ulmonary congestion, no pneumonia. Brain CT Angio does not show any evidence for arterial occlusion. There was no bleeding, no acute CVA detected. Some old stroke findings were seen. CTA of the neck does show some stenosis, no acute arterial obstruction. On exam, the patient did have some difficulty with his speech and some speech slur. He appeared to have an expressive aphasia. He also has some LUE cerebellar dysfunction and increased weakness in the left upper extremity. There was a subtle left facial droop. Patient was treated as a stroke alert. I did speak with the [place] neurologist via telemedicine. The patient is not a candidate for TPA or clot retrieval. Hospitalization for further work-up was felt warranted. The patient has made improvement during his ED stay. His speech is improved. He seems to be doing better overall. I did speak to the patient about his findi ngs, case management has been involved. The on-call hospitalist has been consulted. Continuous Cardiac Monitoring: An order was placed for continuous cardiac monitoring. The monitor shows a rate of 71 with a ventricular pacemaker. Impression & Plan Stroke-like symptoms, Slurred speech, Weakness, Expressive aphasia Discharge Plan Visit Data *Final* Discharge Date/Time: 07/09/19 11:13 Chief Complaint: Stroke Alert ED Provider: Asaf López Discharge Problem: Stroke-like symptoms, Slurred speech, Weakness, Expressive aphasia Patient Disposition: Admitted As Inpatient Discharge Instructions Interventions: ED Discharge Assessment Last Done: 07/09/19 11:13 The oumaribe's documentation has been prepared under my direction and personally reviewed by me in its entirety. I confirm that the note above accurately reflects all work, treatment, procedures, and medical decision making performed by me.
--- NOTE | 2019-07-09 11:25 | Nephrology Consultation ---
Date of Consultation July 09, 2019 Assessment & Plan (1) ESRD (end stage renal disease) on dialysis: -- HD indicated today for correction of hyperkalemia and pulmonary edema -- Will provide HD heparin free according to outpatient orders. Target EDW 122 kg. Keep SBP > 100 mm Hg -- Will use IJ THC as vascular access -- Will provide daily dialysis vitamin (2) Hypertension: -- Mild HTN. Expect this to improve w/ HD UF. Will monitor (3) CHF (congestive heart failure): (4) TIA (transient ischemic attack): -- Patient did not receive thrombolytic therapy -- Dysarthria and L arm weakness have resolved by the time of my exam. Will monitor History of Present Illness Reason for Consultation: ESRD on IHD History of Present Illness Mr. Pierce was seen & examined in the ED this morning. Plan of care was discussed w/ both ED attending and hospitalist. Medical records in the EMR were reviewed today and are summarized as follows: Mr. Pierce has ESRD due to CRS. He has been on IHD since 02/18 and dialyzes MWF at [facility] (Dr. Carter - 4hr, 2K 2Ca, F-180NR, EDW 122, access RIJ THC w/ [facility] AVF maturing). Mr. Pierce's medical history is significant for dCHF, tachy-casey syndrome s/p pacer (warfarin), multiple TIA, AODM, HTN, bladder CA s/p cystectomy w/ urostomy, prostate CA s/p prostatectomy, gout, MJ, COPD. Yesterday evening at 2100 hrs Mr. Pierce c/o dizziness. His checked his BP. SBP was 80's. She put him to bed and his BP inproved to ~ 100 systolic. This morning when preparing for dialysis Mr. Pierce was noted to have dysarthria and L sided weakness. He was brought to the ED by EMS and stroke alert was called. Mr. Pierce was assessed by [facility] [place] Neurology. Head CT was negative for mass or bleed. Neck CTA revealed 80 - 90% stenosis of L carotid bulb. Antithrombotic therapy was not felt to be indicated. Symptoms improved w/ time. Speech is now fluent and L sided weakness has resolved. Neurology indicated that HD can be provided today if needed. Mr. Pierce is 4 kg above his EDW. CXR reveals mild CHF. Serum potassium is mildly elevated as well. AVF is maturing. Patient still has R IJ THC in place for HD Allergies Allergy/AdvReac Type Severity Reaction Status Date / Time promethazine Allergy Unknown UNCONTROLLED Verified 07/09/19 09:55 MUSCLE MOVEMENTS codeine AdvReac Unknown "trips me Verified 07/09/19 09:55 out" Home Medications Home Medications Medication Instructions Recorded Confirmed Type allopurinol 300 mg PO QAM 02/05/18 07/09/19 History aspirin [Aspir-81] 81 mg PO QAM 02/05/18 07/09/19 History atorvastatin 80 mg PO HS 02/05/18 07/09/19 History loratadine [Claritin] 10 mg PO QAM 02/05/18 07/09/19 History melatonin 10 mg PO HS 02/05/18 07/09/19 History nitroglycerin 0.3 mg SUBLINGUAL DIRECTED PRN 02/05/18 07/09/19 History pantoprazole 40 mg PO QAM 02/05/18 07/09/19 History PreserVision AREDS-2 1 tab PO QAM 02/16/18 07/09/19 History cholecalciferol (vitamin D3) 2,000 unit PO QAM 02/16/18 07/09/19 History [Vitamin D3] cyanocobalamin (vitamin B-12) 1,000 mcg PO QAM 02/16/18 07/09/19 History [Vitamin B-12] trazodone 150 mg PO HS 02/16/18 07/09/19 History hydralazine 25 mg PO TID 05/15/18 07/09/19 History thiamine HCl (vitamin B1) 100 mg 100 mg PO QAM tab 12/22/18 07/09/19 History tablet albuterol sulfate 2 puff INHALATION Q4H PRN 02/12/19 07/09/19 History budesonide-formoterol 2 puff INHALATION BID 02/12/19 07/09/19 History fluticasone propionate 1 spray INTRANASAL DAILY PRN 02/12/19 07/09/19 History isosorbide mononitrate 30 mg PO QAM 02/12/19 07/09/19 History docusate sodium 100 mg PO UD PRN 02/13/19 07/09/19 History tiotropium bromide 1 cap INHALATION QAM 02/13/19 07/09/19 History glipizide 10 mg PO QAM 04/22/19 07/09/19 History warfarin 2.5 mg PO SUMOWETH@1600 04/22/19 07/09/19 History clonazepam [Klonopin] 0.5 mg PO DAILY PRN 05/03/19 07/09/19 History hydroxyzine HCl 10 mg PO HS 05/04/19 07/09/19 History ascorbic acid (vitamin C) 1,000 mg PO QAM 07/09/19 07/09/19 History sevelamer carbonate 800 mg PO TIDM 07/09/19 07/09/19 History umeclidinium 1 inh INHALATION QAM 07/09/19 07/09/19 History venlafaxine 75 mg PO QAM 07/09/19 07/09/19 History warfarin 5 mg PO TUSA@1600 07/09/19 07/09/19 History Patient History Medical History Anxiety (Chronic) Atrial fibrillation (Chronic) DX 2006 - NO HX CARDIOVERSION Cancer (Resolved) HX OF BLADDER HX OF PROSTATE Cardiac pacemaker in situ (Resolved) Chronic back pain (Chronic) Chronic kidney disease (Chronic) ESRD Chronic obstructive pulmonary disease (Chronic) on 2 L continuous O2, 3L HS with BiPAP (not using BiPAP currently due to mask issues) Coronary arteriosclerosis (Chronic) S/P single stent 2013, denies AL. Depression (Chronic) Diabetes mellitus, type 2 (Chronic) Dialysis patient MON, WED AND FRI (RIGHT SHOULDER AREA CURRENT ACCESS) GERD (gastroesophageal reflux disease) (Chronic) Gout continue allopurinol for prophylaxis Hiatal hernia (Chronic) History of CVA (cerebrovascular accident) 11/2017 CVA. Per pt's pt had TIA 11/2018 (possibly CVA?). Residual left sided weakness History of kidney stones HTN (hypertension), benign (Resolved) Hyperlipidemia (Chronic) Osteoarthritis (Chronic) Pacemaker (Chronic) 2011 IMPLANTED FOR A-FIB Peripheral neuropathy (Chronic) Post traumatic stress disorder (Chronic) Presence of urostomy Sleep apnea (Chronic) BIPAP Stroke (Resolved) CT SCAN NOVEMBER 2017 SHOWED EVIDENCE OF AN OLD STROKE ? EXACT DATE NOVEMBER 2017 SLURRED SPEECH/LEFT FOOT WEAKNESS CURRENTLY STILL HAS WEAKNESS IN LEFT SIDE Transient ischemic attack (TIA) (Resolved) HX "MINI STROKES" Surgical History History of biopsy of bladder (Resolved) History of cardiac cath (Resolved) STENT PLACED 2011 History of cataract surgery (Resolved) RT/LEFT History of cholecystectomy (Resolved) History of colonoscopy History of heart artery stent (Resolved) History of laminectomy (Resolved) LUMBAR History of prostatectomy (Resolved) History of tooth extraction (Resolved) History of urologic surgery FOR KIDNEY STONE History of urostomy BLADDER REMOVED D/T CANCER STOMA REVISED Pericardial disease (Resolved) PERICARDIAL WINDOW/MICROSCOPIC ([facility]) 2013 Family History (Updated 07/09/19 @ 11:06 by Regina Vegas DO) Other Family history non-contributory Social History (Updated 07/09/19 @ 11:06 by Regina Vegas DO) Preferred Language: Puerto Rican Communication Ability: Effective Analog Ic 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 Required: No Beliefs That Will Affect Care: None marital status: Current Living Situation: Spouse Current Living Situation Comment: pt and his live with their dtr current occupational status: retired Other Information That Helps Us Care for You: No Feels Safe at Home: Yes Safety Concerns: Feels Safe At This Time Smoking Status: Former smoker Tobacco Type: cigarettes ; Smoking End Date: 2000 ; Second Hand Exposure: No ; Hx Alcohol Use: No Hx Substance Use: No Review of Systems Constitutional: + weakness; no fever Eyes: no worsening vision and no problem reported Ear, Nose, Mouth, Throat: no problem reported Respiratory: no cough and no dyspnea Cardiovascular: no chest pain, no palpitations and no edema Gastrointestinal: no abdominal pain, no nausea, no vomiting and no diarrhea/loose stools Genitourinary: no dysuria, no urinary hesitancy and no hematuria Musculoskeletal: no back pain Integumentary: no rash Neurologic: + abnormal speech and + problem reported (L arm weakness) Physical Exam Constitutional: + ill appearing; not in distress Eyes: PERRL, conjunctivae normal, anicteric sclerae ENMT: external ear and nose normal, oropharynx normal Neck: trachea midline, no thyromegaly Respiratory: normal respiratory effort, lungs clear to auscultation Cardiovascular: Rate/Rhythm: regular rate and regular rhythm Extremities: + edema (trace LE swelling) and + AV fistula (+ bruit) Gastrointestinal (Abdomen): normal bowel sounds, soft, nontender, no hepatosplenomegaly Musculoskeletal: Extremities: no cyanosis Skin: no rashes, warm and dry Neurologic: awake; not confused Results & Data Vital Signs (Past 12 Hours) Vital Signs Temp Pulse Pulse Resp BP BP Pulse Ox 07/09/19 11:13 60 18 159/75 H 99 07/09/19 10:31 60 14 178/75 H 07/09/19 10:30 60 12 98 07/09/19 10:20 60 17 99 07/09/19 10:16 60 17 160/72 H 99 07/09/19 10:10 60 17 99 07/09/19 10:01 60 16 148/71 H 99 07/09/19 10:00 60 15 99 07/09/19 09:52 60 22 161/67 H 99 07/09/19 09:50 60 18 100 07/09/19 09:40 71 14 96 07/09/19 09:32 100 07/09/19 09:30 64 12 100 07/09/19 09:23 60 16 98 07/09/19 09:05 36.5 C 62 61 18 127/57 L 127/57 L 100 07/09/19 09:04 68 19 127/57 L Laboratory Results Laboratory Tests 07/09/19 07/09/19 09:40 09:40 WBC 6.24 Hgb 11.9 L Hct 35.6 L Plt Count 135 Sodium 135 L Potassium 5.4 H Chloride 99 Carbon Dioxide 26 BUN 53 H Creatinine 7.53 H* Glucose 110 H Calcium 8.2 L Diagnostic Findings HEAD CT: No CVA NECK MRA: 80 - 90% stenosis L carotid bulb. 2 cm mass? near RUL - follow up in 2 months CXR: Mild CHF PG Care Time/CCT Total # of Minutes Spent Total Time Spent with Patient: Total time spent is greater than 50% in coordination of care (as documented) at patient's floor/unit and/or counseling patient: Coding Level of Care Code 89006 Inpt Consult Level 5 Diagnoses ESRD (end stage renal disease) on dialysis N18.6; Z99.2 Hypertension I10 CHF (congestive heart failure) I50.9 TIA (transient ischemic attack) G45.9
[2019-07-09] MEDS ORDERED: GLUCOSE 40% GEL 15 GM TUBE PO PRN (11:47)
[2019-07-09] MEDS ORDERED: GLUCAGON FOR INJ 1 MG VIAL SQ PRN (11:47)
[2019-07-09] MEDS ORDERED: GLUCOSE 10 TABS/TUBE PO PRN (11:47)
[2019-07-09] MEDS ORDERED: ACETAMINOPHEN 325 MG TAB PO PRN (11:47)
[2019-07-09] MEDS ORDERED: UMECLIDINIUM BROMIDE 62.5MCG/BLISTER 7 PUFFS/INHALER INH SCH (11:47)
[2019-07-09] MEDS ORDERED: ALBUTEROL HFA 8 GM INHALER INH PRN (11:47)
[2019-07-09] MEDS ORDERED: FLUTICASONE PROPIONATE NA SPR 16 GM BTL PRN (11:47)
[2019-07-09] MEDS ORDERED: NITROGLYCERIN 0.3 MG/1 TAB 100 TAB BTL SL PRN (11:47)
[2019-07-09] MEDS ORDERED: DEXTROSE 50% 50 ML SYRINGE IV PRN (11:47)
[2019-07-09] MEDS ORDERED: MAGNESIUM HYDROXIDE SUSP 30 ML UDC PO PRN (11:47)
[2019-07-09] MEDS ORDERED: CARBOHYDRATES FOR HYPOGLYCEMIA PO PRN (11:47)
[2019-07-09] MEDS ORDERED: PHARMACIST DISCHARGE MED REC CONSULT PRN (11:47)
[2019-07-09] MEDS: VENLAFAXINE HCL XR 75 MG CAPXR PO SCH (12:39)
[2019-07-09] MEDS: SEVELAMER HCL 800 MG TABLET PO SCH ×2 (12:39→19:38)
[2019-07-09] MEDS: INSULIN ASPART 100 UNITS/ML 3 ML PEN SC SCH ×3 (12:56→21:20)
--- NOTE | 2019-07-09 13:22 | Consultation ---
Date of Consultation July 09, 2019 Assessment & Plan (1) Carotid stenosis, bilateral: Pt with significant BL ICA stenosis and apparent TIA/CVA sx. R side appears to have an intraplaque hemorrhage. CTA head does not demonstrate acute CVA, and MRI contraindicated d/t pacemaker. Recommend repeat CT head in 48 hrs. Depending on results, possible R CEA next week. Recommend consult neurology. Pt seen in conjunction with Dr Jennings today. Patient was seen, examined, and chart reviewed. Agree with exam and treatment plan of the Vascular PA. Will plan on possible CEA of right carotid friday pending neurology consult Present on Admission?: Yes History of Present Illness Reason for Consultation: BL ICA stenosis, possible TIA vs CVA Attending Physician: Regina Vegas, DO History of Present Illness 69 yo m with multuple medical problems, including ESRD on HD, CHF, HTN, CAD, pacemaker, COPD, GOUT, DMII, a fib, and TIA in past, admitted with stroke like sx, seen in consultation today for BL ICA stenosis noted on CTA neck. Pt already known to Dr Jennings for RUE AVF creation and permcath insertion. Pt's states he was confused and generally weak last evening prior to bed. Awoke this AM still confused and slurred speech and generally weak and dizzy, so called ambulance. She also states pt with L sided facial droop and L arm weakness. Feels his sx have improved, but not resolved. Pt himself denies SILVA, amaurosis, dysphagia, chest pain, palpitations, abd pain, N/V, rest pain, claudication, other complaints. Pt continues to dialyze through permcath, just started using his RUE AVF for HD via single needle approx 1 week ago. CTA neck indicates R ICA stenosis with intraplaque hemorrhage and severe L ICA stenosis as well. Allergies Allergy/AdvReac Type Severity Reaction Status Date / Time promethazine Allergy Unknown UNCONTROLLED Verified 07/09/19 09:55 MUSCLE MOVEMENTS codeine AdvReac Unknown "trips me Verified 07/09/19 09:55 out" Home Medications Home Medications Medication Instructions Recorded Confirmed Type allopurinol 300 mg PO QAM 02/05/18 07/09/19 History aspirin [Aspir-81] 81 mg PO QAM 02/05/18 07/09/19 History atorvastatin 80 mg PO HS 02/05/18 07/09/19 History loratadine [Claritin] 10 mg PO QAM 02/05/18 07/09/19 History melatonin 10 mg PO HS 02/05/18 07/09/19 History nitroglycerin 0.3 mg SUBLINGUAL DIRECTED PRN 02/05/18 07/09/19 History pantoprazole 40 mg PO QAM 02/05/18 07/09/19 History PreserVision AREDS-2 1 tab PO QAM 02/16/18 07/09/19 History cholecalciferol (vitamin D3) 2,000 unit PO QAM 02/16/18 07/09/19 History [Vitamin D3] cyanocobalamin (vitamin B-12) 1,000 mcg PO QAM 02/16/18 07/09/19 History [Vitamin B-12] trazodone 150 mg PO HS 02/16/18 07/09/19 History hydralazine 25 mg PO TID 05/15/18 07/09/19 History thiamine HCl (vitamin B1) 100 mg 100 mg PO QAM tab 12/22/18 07/09/19 History tablet albuterol sulfate 2 puff INHALATION Q4H PRN 02/12/19 07/09/19 History budesonide-formoterol 2 puff INHALATION BID 02/12/19 07/09/19 History fluticasone propionate 1 spray INTRANASAL DAILY PRN 02/12/19 07/09/19 History isosorbide mononitrate 30 mg PO QAM 02/12/19 07/09/19 History docusate sodium 100 mg PO UD PRN 02/13/19 07/09/19 History tiotropium bromide 1 cap INHALATION QAM 02/13/19 07/09/19 History glipizide 10 mg PO QAM 04/22/19 07/09/19 History warfarin 2.5 mg PO SUMOWETH@1600 04/22/19 07/09/19 History clonazepam [Klonopin] 0.5 mg PO DAILY PRN 05/03/19 07/09/19 History hydroxyzine HCl 10 mg PO HS 05/04/19 07/09/19 History ascorbic acid (vitamin C) 1,000 mg PO QAM 07/09/19 07/09/19 History sevelamer carbonate 800 mg PO TIDM 07/09/19 07/09/19 History umeclidinium 1 inh INHALATION QAM 07/09/19 07/09/19 History venlafaxine 75 mg PO QAM 07/09/19 07/09/19 History warfarin 5 mg PO TUSA@1600 07/09/19 07/09/19 History Patient History Medical History (Updated 07/09/19 @ 13:17 by Joseline Freeman PA-C) Anxiety (Chronic) Atrial fibrillation (Chronic) DX 2006 - NO HX CARDIOVERSION Cancer (Resolved) HX OF BLADDER HX OF PROSTATE Cardiac pacemaker in situ (Resolved) Carotid stenosis, bilateral Chronic back pain (Chronic) Chronic kidney disease (Chronic) ESRD Chronic obstructive pulmonary disease (Chronic) on 2 L continuous O2, 3L HS with BiPAP (not using BiPAP currently due to mask issues) Coronary arteriosclerosis (Chronic) S/P single stent 2013, denies CT. Depression (Chronic) Diabetes mellitus, type 2 (Chronic) Dialysis patient MON, WED AND FRI (RIGHT SHOULDER AREA CURRENT ACCESS) ESRD (end stage renal disease) on dialysis GERD (gastroesophageal reflux disease) (Chronic) Gout continue allopurinol for prophylaxis Hiatal hernia (Chronic) History of CVA (cerebrovascular accident) 11/2017 CVA. Per pt's pt had TIA 11/2018 (possibly CVA?). Residual left sided weakness History of kidney stones HTN (hypertension), benign (Resolved) Hyperlipidemia (Chronic) Hypertension Osteoarthritis (Chronic) Pacemaker (Chronic) 2011 IMPLANTED FOR A-FIB Peripheral neuropathy (Chronic) Post traumatic stress disorder (Chronic) Presence of urostomy Sleep apnea (Chronic) BIPAP Stroke (Resolved) CT SCAN NOVEMBER 2017 SHOWED EVIDENCE OF AN OLD STROKE ? EXACT DATE NOVEMBER 2017 SLURRED SPEECH/LEFT FOOT WEAKNESS CURRENTLY STILL HAS WEAKNESS IN LEFT SIDE TIA (transient ischemic attack) Transient ischemic attack (TIA) (Resolved) HX "MINI STROKES" Surgical History History of biopsy of bladder (Resolved) History of cardiac cath (Resolved) STENT PLACED 2011 History of cataract surgery (Resolved) RT/LEFT History of cholecystectomy (Resolved) History of colonoscopy History of heart artery stent (Resolved) History of laminectomy (Resolved) LUMBAR History of prostatectomy (Resolved) History of tooth extraction (Resolved) History of urologic surgery FOR KIDNEY STONE History of urostomy BLADDER REMOVED D/T CANCER STOMA REVISED Pericardial disease (Resolved) PERICARDIAL WINDOW/MICROSCOPIC ([facility]) 2014 Family History Other Family history non-contributory Social History Preferred Language: Dominican Communication Ability: Effective 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 Beliefs That Will Affect Care: None marital status: Current Living Situation: Spouse Current Living Situation Comment: pt and his live with their dtr current occupational status: retired Feels Safe at Home: Yes Smoking Status: Former smoker Tobacco Type: cigarettes ; Second Hand Exposure: No ; Hx Alcohol Use: No Hx Substance Use: No Review of Systems Review of Systems: All systems reviewed & are unremarkable except as noted in HPI & below Physical Exam Constitutional: WD/WN, vitals as above + morbidly obese, cooperative and comfortable; not in distress Eyes: PERRL, conjunctivae normal, anicteric sclerae ENMT: external ear and nose normal, oropharynx normal Ears: no hearing impairment Neck: trachea midline, no thyromegaly Respiratory: normal respiratory effort, lungs clear to auscultation Auscultation: + diminished lung sounds Cardiovascular: Rate/Rhythm: + irregularly irregular Vessels: posterior tibial pulses present, dorsalis pedis pulses present and radial pulses present; + abnormal peripheral pulses Extremities: normal capillary refill, + vascular access device (R IJ permcath) and + AV fistula (LUE +thrill/bruit) Gastrointestinal (Abdomen): normal bowel sounds, soft, nontender, no hepatosplenomegaly Musculoskeletal: Extremities: extremities normal to inspection and + abnormal strength (RUE/RLE 4/5, LUE 3/5, LLE 4/5) Skin: no rashes, warm and dry + wound (R wrist healing well, scab noted, smaller than last observed) Neurologic: moves all extremities, + focal motor deficit (L sided facial droop) and + confused (mildly) Speech / Cognition: + abnormal speech (dysarthria, stuttering) Psychiatric: A+Ox3, euthymic affect Results & Data Vital Signs (Past 12 Hours) Vital Signs Temp Pulse Pulse Resp BP BP Pulse Ox 07/09/19 11:50 36.4 C L 74 18 154/76 H 99 07/09/19 11:13 60 18 159/75 H 99 07/09/19 10:31 60 14 178/75 H 07/09/19 10:30 60 12 98 07/09/19 10:20 60 17 99 07/09/19 10:16 60 17 160/72 H 99 07/09/19 10:10 60 17 99 07/09/19 10:01 60 16 148/71 H 99 07/09/19 10:00 60 15 99 07/09/19 09:52 60 22 161/67 H 99 07/09/19 09:50 60 18 100 07/09/19 09:40 71 14 96 07/09/19 09:32 100 07/09/19 09:30 64 12 100 07/09/19 09:23 60 16 98 07/09/19 09:05 36.5 C 62 61 18 127/57 L 127/57 L 100 07/09/19 09:04 68 19 127/57 L
[2019-07-09] MEDS: PANTOprazole 40 MG TAB PO SCH (13:44)
[2019-07-09] MEDS: ASPIRIN 81 MG ECTAB PO SCH (13:44)
[2019-07-09] MEDS: allopurinoL 300 MG TAB PO SCH (13:56)
--- NOTE | 2019-07-09 16:44 | Electrocardiogram Report ---
Test Reason : Blood Pressure : / mmHG Vent. Rate : 078 BPM Atrial Rate : 077 BPM P-R Int : 000 ms QRS Dur : 178 ms QT Int : 484 ms P-R-T Axes : -27 -69 091 degrees QTc Int : 551 ms Ventricular-paced rhythm Abnormal ECG When compared with ECG of 04-MAY-2019 09:43, Premature ventricular complexes are no longer Present Vent. rate has increased BY 4 BPM Confirmed by Eze Hackett ([id number]) on 07/09/2019 4:44:21 PM Referred By: REFERRED SELF Confirmed By:Eze Hackett
[2019-07-09] MEDS: ONDANSETRON INJ 2 MG/ML 2 ML VIAL IV PRN (19:28)
[2019-07-09] MEDS: hydrOXYzine HCl 10 MG TAB PO SCH (21:06)
[2019-07-09] MEDS: ATORVASTATIN 40 MG TAB PO SCH (21:06)
[2019-07-09] MEDS: TRAZODONE HCL 50 MG TAB PO SCH (21:06)
[2019-07-10] MEDS: clonazePAM 0.5 MG TAB PO PRN ×2 (01:54→20:33)
[2019-07-10] MEDS: SEVELAMER HCL 800 MG TABLET PO SCH ×3 (08:04→19:44)
[2019-07-10] MEDS: ISOSORBIDE MONO EXTENDED REL 60 MG TABCR PO SCH (08:05)
[2019-07-10] MEDS: FLUTICASONE/VILANTEROL 100/25MCG 14 PUFFS/INHALER INH SCH (08:05)
[2019-07-10] MEDS: UMECLIDINIUM BROMIDE 62.5MCG/BLISTER 7 PUFFS/INHALER INH SCH (08:07)
[2019-07-10] MEDS: LORATADINE 10 MG TAB PO SCH (08:07)
[2019-07-10] MEDS: PANTOprazole 40 MG TAB PO SCH (08:07)
[2019-07-10] MEDS: THIAMINE HCL 100 MG TAB PO SCH (08:08)
[2019-07-10] MEDS: allopurinoL 300 MG TAB PO SCH (08:08)
[2019-07-10] MEDS: NEPHROCAPS PO SCH (08:08)
[2019-07-10] MEDS: VENLAFAXINE HCL XR 75 MG CAPXR PO SCH (08:08)
[2019-07-10] MEDS: CEROVITE ADV FORMULA TAB PO SCH (08:09)
[2019-07-10] MEDS: CHOLECALCIFEROL 1,000 UNITS 25 MCG TAB PO SCH (08:09)
[2019-07-10] MEDS: ASPIRIN 81 MG ECTAB PO SCH (08:09)
[2019-07-10] MEDS: CYANOCOBALAMIN 500 MCG TABLET (VITAMIN B-12) PO SCH (08:10)
[2019-07-10] MEDS: ASCORBIC ACID 500 MG TAB PO SCH (08:10)
[2019-07-10] MEDS: INSULIN ASPART 100 UNITS/ML 3 ML PEN SC SCH ×4 (08:11→20:44)
[2019-07-10 08:57] LABS: Basophils # (auto) 0.05 K/uL (0-0.2); Basophils % (auto) 0.6 %; Eosinophils # (auto) 0.24 K/uL (0-0.5); Eosinophils % (auto) 2.8 %; Hematocrit (blood only) 35.2 % (42-52); Hemoglobin 11.8 g/dL (14.0-18.0); Immature Granulocytes # (auto) 0.01 K/uL (0.00-0.02); Immature Granulocytes % (auto) 0.1 %; Lymphocytes # (auto) 1.33 K/uL (1.2-3.4); Lymphocytes % (auto) 15.7 %; Mean Corpuscular Hemoglobin 31.7 pg (25-34); Mean Corpuscular Hgb Conc 33.5 g/dL (32-36); Mean Corpuscular Volume 94.6 fL (80-100); Mean Platelet Volume 11.5 fL (7.4-10.4); Monocytes # (auto) 1.04 K/uL (0.11-0.59); Monocytes % (auto) 12.2 %; Neutrophils # (auto) 5.82 K/uL (1.4-6.5); Neutrophils % (auto) 68.6 %; Nucleated RBC # (auto) 0.09 K/uL (0-0); Platelet Count 138 K/uL (130-400); RDW Coefficient of Variation 15.4 % (11.5-14.5); RDW Standard Deviation 52.9 fL (36.4-46.3); Red Blood Count 3.72 M/uL (4.7-6.1); White Blood Count 8.49 K/uL (4.8-10.8)
[2019-07-10] MEDS ORDERED: glipiZIDE 5 MG TAB PO SCH (09:00)
[2019-07-10 09:06] LABS: INR 3.4 (0.9-1.1); Prothrombin Time 31.9 Seconds (9.0-12.0)
[2019-07-10 09:28] LABS: Estimated Average Glucose 166 mg/dl; Hemoglobin A1C 7.4 % (4.5-5.6)
[2019-07-10 09:43] LABS: BUN Creatinine Ratio 5.4 (10-20); Calcium 8.7 mg/dl (8.5-10.1); Creatinine Clr Calc Pharmacy 14.8 ml/min; Est GFR (African American) 10.4; Est GFR (Non-African American) 8.9; Potassium 5.7 mmol/L (3.5-5.1)
--- NOTE | 2019-07-10 10:14 | Neurology Consultation ---
Date of Consultation July 10, 2019 Assessment & Plan (1) TIA (transient ischemic attack): TIA potentially localizing to the right cerebral hemisphere, presenting with dysarthria and a left hemiparesis. His symptoms appear to have resolved. His current neurological examination is nonlocalizing in this regard. In speaking with the patient, it sounds like he may have had a similar episode/TIA over the summer. His CT angiography of the neck does reveal bilateral carotid stenosis, although apparently worse on the left. Nonetheless, his symptoms would localize to the right cerebral hemisphere potentially making the 60% right carotid stenosis symptomatic. Furthermore, although this patient does have a history of atrial fibrillation he has a cardiac pacemaker and appears to be appropriately anticoagulated with a therapeutic pro time/INR. Therefore, cardioembolism is probably less likely. Furthermore, his echocardiogram completed this past January did not suggest an obvious potential source of cardioembolism, at least at that time. At this point, I agree with continuing daily low-dose aspirin, high-dose atorvastatin, and warfarin. It looks like a repeat CT of the head has been recommended for tomorrow. I agree this test would be useful to further evaluate for an evolving infarct although the sensitivity may be low and I note that his neurological examination appears to be significantly improved, if not back to his baseline at this point in time. An MRI may be contraindicated in light of his cardiac pacer. Therefore, proceeding with right carotid endarterectomy to address what is likely a symptomatic lesion would be appropriate. However, he does have an 80 to 90% stenosis within the left carotid bulb that may need to be addressed as well, although in a nonurgent fashion. History of Present Illness Reason for Consultation: TIA versus CVA Requesting Physician: Joseline Freeman PA-C Attending Physician: Regina Vegas DO History of Present Illness The patient is a 69-year-old male who presented to the emergency department yes terday with a chief complaint of slurred speech and left-sided weakness, face arm and leg, that began acutely at around 9 PM, approximately 12 hours prior to his assessment in the emergency department. He had also reported some associated dizziness, no headache, syncope or drop attack. His symptoms were persistent during his assessment in the emergency department and a tele-stroke consultation was obtained. Initial imaging including CT of the head and CT angiography of the head and neck were negative for hemorrhage or acute process but did suggest several old/chronic infarcts and bilateral carotid stenosis. Imaging described in further detail below. TPA was not administered as he was outside of the typical window for TPA administration and he is prescribed an anticoagulant. This patient does have multiple chronic medical comorbidities including end-stage renal disease on hemodialysis, hypertension, hyperlipidemia, atrial fibrillation, cardiac pacemaker, COPD, history of stroke, and diabetic peripheral neuropathy. He was seen by the vascular surgery service yesterday regarding potential right carotid endarterectomy. A neurological assessment was recommended prior to undergoing the surgical procedure. This morning, the patient indicates that his symptoms seem to be improved. He does not complain of any left-sided or focal weakness at this time. He believes his speech is improved as well. He denies headache. He does complain of a vision disturbance affecting both eyes, a blue discoloration although he is able to perceive colors, no visual field defect, diplopia, or actual vision loss. He denies a history of painless binocular vision loss/amaurosis fugax although he is admittedly not a very good historian and states that he typically defers to his for details pertaining to his medical care. His is not present at this time. In reviewing his CT of the head, he does have evidence of a chronic, medium sized posterior left MCA territory/parietal lobe infarct. Yet, the patient does not really recall experiencing any strokes with right sided sensory or motor symptomatology. He denies having any significant difficulty with his visual field off to either side. He does report having a strokelike episode that occurred over the summer. There is mention of a TIA that occurred in late November, during an emergency department assessment for shortness of breath on January 04, 2019. It looks like he was cared for at [facility] for that particular issue and more specific records are not available. The patient does report a TIA that occurred over the summer characterized by left-sided weakness that resolved although he indicates that he was in [place] when this particular event transpired. Allergies Allergy/AdvReac Type Severity Reaction Status Date / Time promethazine Allergy Unknown UNCONTROLLED Verified 07/09/19 09:55 MUSCLE MOVEMENTS codeine AdvReac Unknown "trips me Verified 07/09/19 09:55 out" Home Medications Home Medications Medication Instructions Recorded Confirmed Type allopurinol 300 mg PO QAM 02/05/18 07/09/19 History aspirin [Aspir-81] 81 mg PO QAM 02/05/18 07/09/19 History atorvastatin 80 mg PO HS 02/05/18 07/09/19 History loratadine [Claritin] 10 mg PO QAM 02/05/18 07/09/19 History melatonin 10 mg PO HS 02/05/18 07/09/19 History nitroglycerin 0.3 mg SUBLINGUAL DIRECTED PRN 02/05/18 07/09/19 History pantoprazole 40 mg PO QAM 02/05/18 07/09/19 History PreserVision AREDS-2 1 tab PO QAM 02/16/18 07/09/19 History cholecalciferol (vitamin D3) 2,000 unit PO QAM 02/16/18 07/09/19 History [Vitamin D3] cyanocobalamin (vitamin B-12) 1,000 mcg PO QAM 02/16/18 07/09/19 History [Vitamin B-12] trazodone 150 mg PO HS 02/16/18 07/09/19 History hydralazine 25 mg PO TID 05/15/18 07/09/19 History thiamine HCl (vitamin B1) 100 mg 100 mg PO QAM tab 12/22/18 07/09/19 History tablet albuterol sulfate 2 puff INHALATION Q4H PRN 02/12/19 07/09/19 History budesonide-formoterol 2 puff INHALATION BID 02/12/19 07/09/19 History fluticasone propionate 1 spray INTRANASAL DAILY PRN 02/12/19 07/09/19 History isosorbide mononitrate 30 mg PO QAM 02/12/19 07/09/19 History docusate sodium 100 mg PO UD PRN 02/13/19 07/09/19 History tiotropium bromide 1 cap INHALATION QAM 02/13/19 07/09/19 History glipizide 10 mg PO QAM 04/22/19 07/09/19 History warfarin 2.5 mg PO SUMOWETH@1600 04/22/19 07/09/19 History clonazepam [Klonopin] 0.5 mg PO DAILY PRN 05/03/19 07/09/19 History hydroxyzine HCl 10 mg PO HS 05/04/19 07/09/19 History ascorbic acid (vitamin C) 1,000 mg PO QAM 07/09/19 07/09/19 History sevelamer carbonate 800 mg PO TIDM 07/09/19 07/09/19 History umeclidinium 1 inh INHALATION QAM 07/09/19 07/09/19 History venlafaxine 75 mg PO QAM 07/09/19 07/09/19 History warfarin 5 mg PO TUSA@1600 07/09/19 07/09/19 History Patient History Medical History Anxiety (Chronic) Atrial fibrillation (Chronic) DX 2006 - NO HX CARDIOVERSION Cancer (Resolved) HX OF BLADDER HX OF PROSTATE Cardiac pacemaker in situ (Resolved) Carotid stenosis, bilateral Chronic back pain (Chronic) Chronic kidney disease (Chronic) ESRD Chronic obstructive pulmonary disease (Chronic) on 2 L continuous O2, 3L HS with BiPAP (not using BiPAP currently due to mask issues) Coronary arteriosclerosis (Chronic) S/P single stent 2013, denies [place]. Depression (Chronic) Diabetes mellitus, type 2 (Chronic) Dialysis patient MON, WED AND FRI (RIGHT SHOULDER AREA CURRENT ACCESS) ESRD (end stage renal disease) on dialysis GERD (gastroesophageal reflux disease) (Chronic) Gout continue allopurinol for prophylaxis Hiatal hernia (Chronic) History of CVA (cerebrovascular accident) 11/2017 CVA. Per pt's pt had TIA 11/2018 (possibly CVA?). Residual left sided weakness History of kidney stones HTN (hypertension), benign (Resolved) Hyperlipidemia (Chronic) Hypertension Osteoarthritis (Chronic) Pacemaker (Chronic) 2011 IMPLANTED FOR A-FIB Peripheral neuropathy (Chronic) Post traumatic stress disorder (Chronic) Presence of urostomy Sleep apnea (Chronic) BIPAP Stroke (Resolved) CT SCAN NOVEMBER 2017 SHOWED EVIDENCE OF AN OLD STROKE ? EXACT DATE NOVEMBER 2017 SLURRED SPEECH/LEFT FOOT WEAKNESS CURRENTLY STILL HAS WEAKNESS IN LEFT SIDE TIA (transient ischemic attack) Transient ischemic attack (TIA) (Resolved) HX "MINI STROKES" Surgical History History of biopsy of bladder (Resolved) History of cardiac cath (Resolved) STENT PLACED 2011 History of cataract surgery (Resolved) RT/LEFT History of cholecystectomy (Resolved) History of colonoscopy History of heart artery stent (Resolved) History of laminectomy (Resolved) LUMBAR History of prostatectomy (Resolved) History of tooth extraction (Resolved) History of urologic surgery FOR KIDNEY STONE History of urostomy BLADDER REMOVED D/T CANCER STOMA REVISED Pericardial disease (Resolved) PERICARDIAL WINDOW/MICROSCOPIC ([facility]) 2014 Family History Other Family history non-contributory Social History Preferred Language: Telugu Communication Ability: Effective Drier Feeder Required: No Beliefs That Will Affect Care: None marital status: Current Living Situation: Spouse Current Living Situation Comment: pt and his live with their dtr current occupational status: retired Feels Safe at Home: Yes Smoking Status: Former smoker Tobacco Type: cigarettes ; Second Hand Exposure: No ; Hx Alcohol Use: No Hx Substance Use: No Review of Systems Constitutional: no fever and no chills Eyes: as per Subjective / HPI Ear, Nose, Mouth, Throat: no hearing loss Respiratory: no cough and no dyspnea Cardiovascular: no chest pain and no palpitations Gastrointestinal: no nausea and no vomiting Genitourinary: no urinary incontinence Musculoskeletal: no neck pain and no myalgia Integumentary: no rash and no lesions Neurologic: as per Subjective / HPI; no syncope and no headache(s) Psychiatric: no depression and no anxiety Hematologic / Lymphatic: no easy bleeding and no easy bruising Physical Exam Physical Exam: The patient is a well-developed, well-nourished elderly male. He is alert and fully oriented. Recent and remote memory intact. Attention and concentration normal. Patient exhibits a normal spontaneous speech pattern. He is able to name objects and repeat phrases. Patient exhibits an age-appropriate fund of knowledge and normal comprehension of vocabulary. Visual baguh full to confrontation. Visual acuity normal. Pupils equal round reactive to light and accommodation. Eye movements normal. There is no nystagmus, ptosis, or ophthalmoplegia. Facial sensation intact. There is no facial droop or weakness. Hearing intact. Palate elevates to midline. Shoulder shrug intact. Tongue protrudes to midline. There is a length dependent deficit in all 4 limbs, to all sensory modalities noted. Deep tendon reflexes are diffusely diminished, absent at the Achilles tendons bilaterally. Plantar responses silent bilaterally. There is no dysdiadochokinesia or dysmetria [id number] or [id number] bilaterally. Ophthalmoscopic examination reveals normal- appearing optic disks and posterior segments. No papilledema or hemorrhages. Carotid pulses normal bilaterally. There are bilateral carotid bruits to auscultation. Gait and station normal. Patient exhibits normal muscle strength and tone for all 4 limbs. There is no atrophy. No abnormal movements observed. Results & Data Vital Signs (Past 12 Hours) Vital Signs Temp Pulse Pulse Resp BP Pulse Ox 07/10/19 07:27 36.7 C 71 16 99/63 L 94 07/10/19 07:21 66 07/10/19 04:37 37.1 C 60 19 116/72 97 07/09/19 23:27 79 07/09/19 22:41 37.0 C 63 18 92/54 L 92 Laboratory Results WBC 8.49, hemoglobin 11.8, hematocrit 35.2, platelet count 138, pro time 31.9, INR 3.4, sodium 131, potassium 5.7, BUN 32, creatinine 5.83, glucose 137, hemoglobin A1c 7.4, calcium 8.7, troponin less than 0.015, triglycerides 536, cholesterol 201, HDL [address] of the head is negative for hemorrhage or acute process. There is a chronic posterior left MCA territory infarct, medium size, cortical location. There is a chronic small lacunar infarct within the left caudate head as well. There is evidence of chronic periventricular white matter disease/small vessel disease. I reviewed the images as well as the radiologist's interpretation of this test. A CT angiogram of the head is negative for thrombus or aneurysm within the intracranial circulation. There is mild to moderate stenosis of the left P1 segment. I reviewed the images as well as the radiologist's interpretation of this test. A CT angiogram of the neck reveals an approximate 60% focal narrowing within the right carotid bulb and mid right subclavian artery as well as an approximate 80 to 90% focal stenosis within the left carotid bulb. There is also mention of a focal peripheral nodular density abutting the medial border of the right upper lobe measuring 2.5 x 1.9 cm consistent with either an infectious process or neoplastic change. A [address] of the chest and follow-up as well as non- emergent pulmonary consultation was recommended. I reviewed the images as well as the radiologist interpretation of this test. An electrocardiogram reveals a ventricular paced rhythm, 78 bpm. An echocardiogram completed February 16, 2019 indicates normal left ventricular systolic function, no regional wall motion abnormalities, mild concentric left ventricular hypertrophy, ejection fraction 55 to 60%, no change compared with the previous echo done in January 2018. Coding Level of Care Code 82946 Initial In Care Lvl 3 Diagnoses TIA (transient ischemic attack) G45.9
--- NOTE | 2019-07-10 10:25 | Nephrology Progress Note ---
Date of Service July 10, 2019 Assessment & Plan (1) ESRD (end stage renal disease) on dialysis: -- Dalysis catheter functioned poorly yesterday. Patient was run reversed. K+ has risen from 5.2 to 5.7 -- HD indicated today for correction of hyperkalemia. Will pull from AVF and return via IJ THC. Orders placed in EMR and HD RN notified -- Will provide daily dialysis vitamin -- Vascular surgery to remove IJ THC next week (2) Hypertension: -- Mild HTN. Expect this to improve w/ HD UF. Will monitor (3) CHF (congestive heart failure): (4) TIA (transient ischemic attack): -- Patient did not receive thrombolytic therapy -- Dysarthria and L arm weakness have resolved. Will monitor -- Neurology and Vascular Surgery notes reviewed. Patient may have significant B carotid stenosis. Although R lesion is only ~ 60% this may be symptomatic and require intervention Subjective Mr. Pierce was seen & examined in his hospital room this morning. He was A&O x3 w/ fluent speech. L arm weakness has resolved. Mr. Pierce voiced no new medical concerns. Review of Systems Constitutional: + weakness; no fever Eyes: no worsening vision and no problem reported Ear, Nose, Mouth, Throat: no problem reported Respiratory: no cough and no dyspnea Cardiovascular: no chest pain, no palpitations and no edema Gastrointestinal: no abdominal pain, no nausea, no vomiting and no diarrhea/ loose stools Genitourinary: no dysuria, no urinary hesitancy and no hematuria Musculoskeletal: no back pain Integumentary: no rash Physical Exam Constitutional: not in distress Eyes: PERRL, conjunctivae normal, anicteric sclerae ENMT: external ear and nose normal, oropharynx normal Neck: trachea midline, no thyromegaly Respiratory: normal respiratory effort, lungs clear to auscultation Cardiovascular: Rate/Rhythm: regular rate and regular rhythm Extremities: + edema (trace LE swelling) and + AV fistula (+ bruit) Gastrointestinal (Abdomen): normal bowel sounds, soft, nontender, no hepatosplenomegaly Musculoskeletal: Extremities: no cyanosis Skin: no rashes, warm and dry Neurologic: awake; not confused Results & Data Vital Signs (Past 12 Hours) Vital Signs Temp Pulse Pulse Resp BP Pulse Ox 07/10/19 07:27 36.7 C 71 16 99/63 L 94 02/08/20 07:21 66 07/10/19 04:37 37.1 C 60 19 116/72 97 07/09/19 23:27 79 07/09/19 22:41 37.0 C 63 18 92/54 L 92 Laboratory Results Laboratory Tests 07/10/19 08:32 WBC 8.49 Hgb 11.8 L Hct 35.2 L Plt Count 138 PG Care Time/CCT Total # of Minutes Spent Total Time Spent with Patient: Total time spent is greater than 50% in coordination of care (as documented) at patient's floor/unit and/or counseling patient: Coding Level of Care Code 50838 Subseq Hosp Care Lvl 3 Diagnoses ESRD (end stage renal disease) on dialysis N18.6; Z99.2 Hypertension I10 CHF (congestive heart failure) I50.9 TIA (transient ischemic attack) G45.9
[2019-07-10] MEDS ORDERED: SODIUM CHLORIDE 0.9% 1000ML 1,000 ML IV PRN (10:41)
--- NOTE | 2019-07-10 13:02 | Hospitalist Progress Note ---
Date of Service July 10, 2019 Assessment & Plan (1) Stroke-like symptoms: Uncertain etiology, possibly CVA however unable to obtain MRI and no infarct noted on CTA CTA h/n noted for significant stenosis on L carotid bulb Vascular planning for perm cath removal on 07/12, R CEA on 07/13 Unable to obtain MRI due to pacer CXR neg for infection with UA pending and WBC WNL, afebrile Will hold on neuro eval to see if sx clear further s/p HD Takes aspirin 81mg at baseline due to hx of prior CVA, continue Lipid panel unable to be completed due to TG at 536 A1c 7.4 PT/OT/ST evals pending (2) Acute hyperkalemia: Further elevation noted, defer to renal (3) Hypertension: continue home meds (4) Gout: continue home meds (5) 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 Raul Woo for HD on day of admission but came to the ED for above sx and did not receive (9) Paroxysmal atrial fibrillation: continue home meds Coumadin dosing 3.75mg Tu/Sa, 2.5mg other days INR WNL on admission, slightly supratherapeutic today--hold coumadin (10) Type 2 diabetes mellitus without complication: Glipizide as outpt, hold given current status A1c 7.4 SSI PRN (11) Pacemaker: Unable to obtain MRI due to this (12) History of stroke: No event time known, dx via CT in the past Aspirin 81mg at baseline (13) PTSD (post-traumatic stress disorder): continue home meds (14) DVT prophylaxis: Coumadin at baseline Subjective Pt states he feels much better today. Still a bit weak, but up in the chair and this feels much better to him. Tolerating PO without issue. is present and states that his speech is much improved. No quite normal, but almost. Pt denies fever, SOB, chest pain, abd pain, n/v/c/d, LE pain or swelling. Review of Systems Review of Systems: Pertinent positives and negatives reviewed in HPI--all others negative Physical Exam Constitutional: WD/WN, vitals as above Eyes: normal visual baugh by confrontation and + anicteric sclerae Neck: normal visual inspection and trachea midline Respiratory: normal respiratory effort, lungs clear to auscultation Cardiovascular: Rate/Rhythm: regular rate and regular rhythm Gastrointestinal (Abdomen): Inspection/Auscultation: abdomen not distended Percussion/Palpation: abdomen soft; abdomen nontender Musculoskeletal: Head/Neck/Chest: normocephalic and head atraumatic Skin: no rashes, warm and dry Neurologic: CN's II-XI intact bilaterally and awake; not confused Speech / Cognition: + abnormal speech (answers questions more quickly and fluently, min slurring); normal cognition Psychiatric: A+Ox3, euthymic affect Results & Data ([facility]) Vital Signs (Past 12 Hours) Vital Signs Temp Pulse Pulse Resp BP Pulse Ox 07/10/19 11:27 37.3 C 60 16 128/65 96 07/10/19 07:27 36.7 C 71 16 99/63 L 94 07/10/19 07:21 66 07/10/19 04:37 37.1 C 60 19 116/72 97 PG Care Time/CCT Total # of Minutes Spent Total Time Spent with Patient: Total time spent is greater than 50% in coordination of care (as documented) at patient's floor/unit and/or counseling patient: Coding Level of Care Code 42254 Subseq Hosp Care Lvl 3 Diagnoses Stroke-like symptoms R29.90 Acute hyperkalemia E87.5 Hypertension I10 Gout M10.9 Thiamine deficiency E51.9 Depression with anxiety F41.8 COPD (chronic obstructive pulmonary disease) J44.9 COPD type: unspecified COPD CKD (chronic kidney disease), stage III N18.3 Paroxysmal atrial fibrillation I48.0 Type 2 diabetes mellitus without complication E11.9 Pacemaker Z95.0 History of stroke Z86.73 PTSD (post-traumatic stress disorder) F43.10 DVT prophylaxis Z29.9 (1) COPD (chronic obstructive pulmonary disease) COPD type: unspecified COPD Qualified Code(s): J44.9 - Chronic obstructive pulmonary disease, unspecified
[2019-07-10] MEDS ORDERED: WARFARIN SOD 1.25 MG TAB PO SCH (16:00)
[2019-07-10] MEDS: DOCUSATE SODIUM 100 MG CAP PO PRN (19:51)
[2019-07-10] MEDS: hydrOXYzine HCl 10 MG TAB PO SCH (20:32)
[2019-07-10] MEDS: TRAZODONE HCL 50 MG TAB PO SCH (20:33)
[2019-07-10] MEDS: ATORVASTATIN 40 MG TAB PO SCH (21:09)
[2019-07-11 06:49] LABS: Hematocrit (blood only) 31.9 % (42-52); Mean Corpuscular Hemoglobin 31.5 pg (25-34); Mean Corpuscular Hgb Conc 34.5 g/dL (32-36); Mean Corpuscular Volume 91.4 fL (80-100); Mean Platelet Volume 10.3 fL (7.4-10.4); Nucleated RBC # (auto) 0.03 K/uL (0-0); Nucleated RBC % (auto) 0.5 %; Platelet Count 133 K/uL (130-400); RDW Coefficient of Variation 15.3 % (11.5-14.5); RDW Standard Deviation 50.9 fL (36.4-46.3); Red Blood Count 3.49 M/uL (4.7-6.1); White Blood Count 5.63 K/uL (4.8-10.8)
[2019-07-11 07:01] LABS: INR 2.4 (0.9-1.1); Prothrombin Time 23.5 Seconds (9.0-12.0)
[2019-07-11 07:40] LABS: BUN Creatinine Ratio 4.9 (10-20); Calcium 8.6 mg/dl (8.5-10.1); Creatinine Clr Calc Pharmacy 19.6 ml/min; Est GFR (African American) 14.5; Est GFR (Non-African American) 12.5; Potassium 4.5 mmol/L (3.5-5.1)
[2019-07-11] MEDS: INSULIN ASPART 100 UNITS/ML 3 ML PEN SC SCH ×4 (08:06→21:30)
[2019-07-11] MEDS: UMECLIDINIUM BROMIDE 62.5MCG/BLISTER 7 PUFFS/INHALER INH SCH (08:07)
[2019-07-11] MEDS: FLUTICASONE/VILANTEROL 100/25MCG 14 PUFFS/INHALER INH SCH (08:07)
[2019-07-11] MEDS: THIAMINE HCL 100 MG TAB PO SCH (08:09)
[2019-07-11] MEDS: PANTOprazole 40 MG TAB PO SCH (08:09)
[2019-07-11] MEDS: NEPHROCAPS PO SCH (08:09)
[2019-07-11] MEDS: LORATADINE 10 MG TAB PO SCH (08:09)
[2019-07-11] MEDS: allopurinoL 300 MG TAB PO SCH (08:09)
[2019-07-11] MEDS: ASCORBIC ACID 500 MG TAB PO SCH (08:09)
[2019-07-11] MEDS: CHOLECALCIFEROL 1,000 UNITS 25 MCG TAB PO SCH (08:10)
[2019-07-11] MEDS: ASPIRIN 81 MG ECTAB PO SCH (08:10)
[2019-07-11] MEDS: SEVELAMER HCL 800 MG TABLET PO SCH ×3 (08:11→16:59)
[2019-07-11] MEDS: CYANOCOBALAMIN 500 MCG TABLET (VITAMIN B-12) PO SCH (08:11)
[2019-07-11] MEDS: ISOSORBIDE MONO EXTENDED REL 60 MG TABCR PO SCH (08:12)
[2019-07-11] MEDS: CEROVITE ADV FORMULA TAB PO SCH (08:12)
[2019-07-11] MEDS: VENLAFAXINE HCL XR 75 MG CAPXR PO SCH (08:12)
[2019-07-11] MEDS: DOCUSATE SODIUM 100 MG CAP PO PRN (10:04)
--- NOTE | 2019-07-11 11:19 | Neurology Progress Note ---
Date of Service July 11, 2019 Assessment & Plan (1) TIA (transient ischemic attack): TIA localizing to the right cerebral hemisphere. Bilateral carotid stenosis as below. Patient has been neurologically stable. Plan to continue with daily low-dose aspirin, atorvastatin, and anticoagulation. See discussion below regarding carotid stenosis for further details. Repeat CT of the head to be completed today to further exclude an evolving infarct. Unable to have MRI as patient has a noncompatible cardiac pacer. (2) Carotid stenosis, bilateral: Bilateral carotid stenosis, left greater than right. However, the right sided stenosis is likely symptomatic. Plan for endarterectomy Friday or Friday with Dr. Jennings. Subjective Follow-up for TIA The patient is a 69-year-old male who presented to the emergency department 2 days ago with left-sided weakness and dysarthria beginning about 12 hours prior to his initial assessment. The symptoms have subsequently resolved. His CT angiography suggest bilateral carotid stenosis, left greater than right, although the right carotid narrowing is likely symptomatic. He has been seen by vascular surgery with tentative plans for endarterectomy on Friday or Friday. History also notable for atrial fibrillation/cardiac pacemaker, anticoagulated. Patient denies experiencing any symptomatic relapse or new neurological symptoms since his admission to the hospital. Currently denies headache, vision loss, focal weakness or sensory change. Patient spouse is at bedside. Patient likely at his typical baseline at this point time. Review of Systems Constitutional: no fever, no chills and no fatigue Eyes: no blind spots and no diplopia Neurologic: as per Subjective / HPI; no headache(s) Physical Exam Physical Exam: Patient is alert and fully oriented. Recent and remote memory intact. Attention and concentration normal. Patient able to name objects and repeat phrases. Speech non-dysarthric. Normal fund of knowledge and normal comprehension of vocabulary. Visual baugh full to confrontation. Visual acuity normal. Pupils equal round reactive to light and accommodation. Eye movements normal. There is no facial droop or weakness. Hearing intact. Palate elevates to midline. Shoulder shrug intact. Tongue protrudes to midline. There is no pronator drift with outstretched arms. Strength normal for all 4 limbs proximally and distally. No hemiparesis. Results & Data Vital Signs (Past 12 Hours) Vital Signs Temp Pulse Pulse Resp BP Pulse Ox 07/11/19 07:21 36.9 C 60 20 134/70 97 07/11/19 07:09 60 07/11/19 04:16 36.8 C 62 20 117/60 97 07/10/19 23:35 60 PG Care Time/CCT Total # of Minutes Spent Total Time Spent with Patient: Total time spent is greater than 50% in coordination of care (as documented) at patient's floor/unit and/or counseling patient: Coding Level of Care Code 86699 Subseq Hosp Care Lvl 2 Diagnoses TIA (transient ischemic attack) G45.9 Carotid stenosis, bilateral I65.23
--- NOTE | 2019-07-11 11:49 | Nephrology Progress Note ---
Date of Service July 11, 2019 Assessment & Plan (1) ESRD (end stage renal disease) on dialysis: -- Will provide HD tomorrow to maintain patient's MWF schedule -- Will begin using AVF as vascular access. Patient scheduled for IJ THC this week -- Will provide daily dialysis vitamin (2) Hypertension: -- BP improved w/ UF. Will monitor (3) CHF (congestive heart failure): (4) TIA (transient ischemic attack): -- Patient did not receive thrombolytic therapy -- Dysarthria and L arm weakness have resolved. Will monitor -- Neurology and Vascular Surgery notes reviewed. Patient may have signif icant bilateral carotid stenosis. Although R lesion is only ~ 60% this may be symptomatic and require intervention Subjective Mr. Pierce was seen & examined in his hospital room this morning. He was dialyzed yesterday for correction of hyperkalemia. Serum potassium is 4.5 this morning. Mr. Pierce currently denies SILVA or muscle weakness. Review of Systems Constitutional: no fever and no weakness Eyes: no worsening vision and no problem reported Ear, Nose, Mouth, Throat: no problem reported Respiratory: no cough and no dyspnea Cardiovascular: no chest pain, no palpitations and no edema Gastrointestinal: no abdominal pain, no nausea, no vomiting and no diarrhea/loose stools Genitourinary: no dysuria, no urinary hesitancy and no hematuria Musculoskeletal: no back pain Integumentary: no rash Physical Exam Constitutional: not in distress Eyes: PERRL, conjunctivae normal, anicteric sclerae ENMT: external ear and nose normal, oropharynx normal Neck: trachea midline, no thyromegaly Respiratory: normal respiratory effort, lungs clear to auscultation Cardiovascular: Rate/Rhythm: regular rate and regular rhythm Extremities: + edema (trace LE swelling) and + AV fistula (+ bruit) Gastrointestinal (Abdomen): normal bowel sounds, soft, nontender, no hepatosplenomegaly Musculoskeletal: Extremities: no cyanosis Skin: no rashes, warm and dry Neurologic: awake; not confused Results & Data Vital Signs (Past 12 Hours) Vital Signs Temp Pulse Pulse Resp BP Pulse Ox 07/11/19 07:21 36.9 C 60 20 134/70 97 07/11/19 07:09 60 07/11/19 04:16 36.8 C 62 20 117/60 97 Laboratory Results Laboratory Tests 07/11/19 07/11/19 06:21 06:21 WBC 5.63 Hgb 11.0 L Hct 31.9 L Plt Count 133 Sodium 130 L Potassium 4.5 D Chloride 99 Carbon Dioxide 22 BUN 22 H Creatinine 4.43 H D PG Care Time/CCT Total # of Minutes Spent Total Time Spent with Patient: Total time spent is greater than 50% in coordination of care (as documented) at patient's floor/unit and/or counseling patient: Coding Level of Care Code 82906 Subseq Hosp Care Lvl 3 Diagnoses ESRD (end stage renal disease) on dialysis N18.6; Z99.2 Hypertension I10 CHF (congestive heart failure) I50.9 TIA (transient ischemic attack) G45.9
--- NOTE | 2019-07-11 13:45 | CT Scan Report ---
CT OF THE HEAD WITHOUT CONTRAST CLINICAL HISTORY: TIA, stroke, evaluate for change COMPARISON STUDY: Head CT and CTA of the head July 09, 2019. CT DOSE: 614.27 mGy.cm TECHNIQUE: Helical axial images of the head were obtained without IV contrast. Automated exposure con trol was utilized for the study. A dose lowering technique was utilized adhering to the principles o f ALARA. FINDINGS: No acute intracranial hemorrhage, midline shift or mass effect is present. Ventricular syst em is normal. The basilar cisterns are patent. There are no extra-axial collections. Old infarct with in left parietal lobe is noted. There is an old lacunar infarct within left caudate head. White matte r hypodensity suggests small vessel disease. The appearance of the brain is unchanged. There are no f indings to suggest acute dural sinus thrombosis or acute territorial infarct. There are no significan t caliber abnormality. There is minimal sinus mucosal thickening. IMPRESSION: 1. No acute intracranial findings. 2. No change in appearance of the brain. Old left parietal lobe infarct. ACT 112: Negative or not required by law. Electronically signed by: Moisés Givens M.D. 07/11/2019 1:43 PM
--- NOTE | 2019-07-11 14:28 | Hospitalist Progress Note ---
Date of Service July 11, 2019 Assessment & Plan (1) Stroke-like symptoms: Uncertain etiology, possibly CVA however unable to obtain MRI and no infarct noted on CTA CTA h/n noted for significant stenosis on L carotid bulb Vascular planning for perm cath removal on 07/12, R CEA on 07/13 Unable to obtain MRI due to pacer CXR neg for infection with UA pending and WBC WNL, afebrile Will hold on neuro eval to see if sx clear further s/p HD Takes aspirin 81mg at baseline due to hx of prior CVA, continue Lipid panel unable to be completed due to TG at 536 A1c 7.4 PT/OT/ST evals pending (2) Acute hyperkalemia: resolved s/p addition HD yesterday (3) Hypertension: continue home meds (4) Gout: continue home meds (5) 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 Raul Woo for HD on day of admission but came to the ED for above sx and did not receive (9) Paroxysmal atrial fibrillation: continue home meds Coumadin dosing 3.75mg /, 2.5mg other days INR WNL on admission, held 07/10 for slightly supratherapeutic and will continue to hold for procedure tomorrow (10) Type 2 diabetes mellitus without complication: Glipizide as outpt, hold given current status A1c 7.4 SSI PRN (11) Pacemaker: Unable to obtain MRI due to this (12) History of stroke: No event time known, dx via CT in the past Aspirin 81mg at baseline (13) PTSD (post-traumatic stress disorder): continue home meds (14) Lung nodule: seen on CT, RUL Recs for f/u CT in 1 month (15) DVT prophylaxis: Coumadin at baseline Subjective Pt feels better again today. 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 His voice is stronger today. states that he is s peaking at his baseline. States there is no further confusion. Tolerating PO without issue. Pt denies fever, SOB, chest pain, abd pain, n/v/c/d, LE pain or swelling. Review of Systems Review of Systems: Pertinent positives and negatives reviewed in HPI--all others negative Physical Exam Constitutional: WD/WN, vitals as above Eyes: normal visual baugh by confrontation and + anicteric sclerae Neck: normal visual inspection and trachea midline Respiratory: normal respiratory effort, lungs clear to auscultation Cardiovascular: Rate/Rhythm: regular rate and regular rhythm Gastrointestinal (Abdomen): Inspection/Auscultation: abdomen not distended Percussion/Palpation: abdomen soft; abdomen nontender Musculoskeletal: Head/Neck/Chest: normocephalic and head atraumatic Skin: no rashes, warm and dry Neurologic: CN's II-XI intact bilaterally and awake; not confused Speech / Cognition: normal speech (voice is stronger, no slurring) and normal cognition Psychiatric: A+Ox3, euthymic affect Results & Data ([facility]) Vital Signs (Past 12 Hours) Vital Signs Temp Pulse Pulse Resp BP Pulse Ox 07/11/19 12:12 36.8 C 59 L 18 149/64 H 93 07/11/19 07:21 36.9 C 60 20 134/70 97 07/11/19 07:09 60 07/11/19 04:16 36.8 C 62 20 117/60 97 PG Care Time/CCT Total # of Minutes Spent Total Time Spent with Patient: Total time spent is greater than 50% in coordination of care (as documented) at patient's floor/unit and/or counseling patient: Coding Level of Care Code 26887 Subseq Hosp Care Lvl 2 Diagnoses Stroke-like symptoms R29.90 Acute hyperkalemia E87.5 Hypertension I10 Gout M10.9 Thiamine deficiency E51.9 Depression with anxiety F41.8 COPD (chronic obstructive pulmonary disease) J44.9 COPD type: unspecified COPD CKD (chronic kidney disease), stage III N18.3 Paroxysmal atrial fibrillation I48.0 Type 2 diabetes mellitus without complication E11.9 Pacemaker Z95.0 History of stroke Z86.73 PTSD (post-traumatic stress disorder) F43.10 Lung nodule R91.1 DVT prophylaxis Z29.9 (1) COPD (chronic obstructive pulmonary disease) COPD type: unspecified COPD Qualified Code(s): J44.9 - Chronic obstructive pulmonary disease, unspecified
[2019-07-11] MEDS: TRAZODONE HCL 50 MG TAB PO SCH (21:29)
[2019-07-11] MEDS: ATORVASTATIN 40 MG TAB PO SCH (21:30)
[2019-07-11] MEDS: hydrOXYzine HCl 10 MG TAB PO SCH (21:31)
[2019-07-12] MEDS ORDERED: SODIUM CHLORIDE 0.9% 1000ML 1,000 ML IV PRN (07:00)
[2019-07-12 07:37] LABS: Hematocrit (blood only) 32.8 % (42-52); Hemoglobin 11.3 g/dL (14.0-18.0); Mean Corpuscular Hemoglobin 31.3 pg (25-34); Mean Corpuscular Hgb Conc 34.5 g/dL (32-36); Mean Corpuscular Volume 90.9 fL (80-100); Mean Platelet Volume 11.2 fL (7.4-10.4); Platelet Count 136 K/uL (130-400); RDW Standard Deviation 49.6 fL (36.4-46.3); Red Blood Count 3.61 M/uL (4.7-6.1); White Blood Count 5.41 K/uL (4.8-10.8)
[2019-07-12 07:50] LABS: INR 2.3 (0.9-1.1); Prothrombin Time 21.8 Seconds (9.0-12.0)
[2019-07-12 08:18] LABS: BUN Creatinine Ratio 5.7 (10-20); Calcium 8.7 mg/dl (8.5-10.1); Creatinine Clr Calc Pharmacy 14.1 ml/min; Est GFR (African American) 9.7; Est GFR (Non-African American) 8.3; Potassium 4.5 mmol/L (3.5-5.1)
[2019-07-12] MEDS: INSULIN ASPART 100 UNITS/ML 3 ML PEN SC SCH ×5 (08:25→21:03)
[2019-07-12] MEDS: CYANOCOBALAMIN 500 MCG TABLET (VITAMIN B-12) PO SCH (08:28)
[2019-07-12] MEDS: PANTOprazole 40 MG TAB PO SCH (08:29)
[2019-07-12] MEDS: THIAMINE HCL 100 MG TAB PO SCH (08:29)
[2019-07-12] MEDS: allopurinoL 300 MG TAB PO SCH (08:29)
[2019-07-12] MEDS: UMECLIDINIUM BROMIDE 62.5MCG/BLISTER 7 PUFFS/INHALER INH SCH (08:30)
[2019-07-12] MEDS: FLUTICASONE/VILANTEROL 100/25MCG 14 PUFFS/INHALER INH SCH (08:30)
[2019-07-12] MEDS: ASCORBIC ACID 500 MG TAB PO SCH (08:30)
[2019-07-12] MEDS: LORATADINE 10 MG TAB PO SCH (08:30)
[2019-07-12] MEDS: CHOLECALCIFEROL 1,000 UNITS 25 MCG TAB PO SCH (08:31)
[2019-07-12] MEDS: CEROVITE ADV FORMULA TAB PO SCH (08:31)
[2019-07-12] MEDS: ISOSORBIDE MONO EXTENDED REL 60 MG TABCR PO SCH (08:31)
[2019-07-12] MEDS: NEPHROCAPS PO SCH (08:32)
[2019-07-12] MEDS: SEVELAMER HCL 800 MG TABLET PO SCH ×3 (08:32→15:16)
[2019-07-12] MEDS: VENLAFAXINE HCL XR 75 MG CAPXR PO SCH (08:33)
[2019-07-12] MEDS: ASPIRIN 81 MG ECTAB PO SCH ×2 (08:37→08:39)
--- NOTE | 2019-07-12 11:35 | Nephrology Progress Note ---
Date of Service July 12, 2019 Assessment & Plan (1) ESRD (end stage renal disease) on dialysis: -- HD today to maintain patient's MWF schedule. Orders have been placed in EMR and HD RN notified -- Will ask full time staff interpreter to use AVF as vascular access. Patient scheduled for IJ THC this week -- Will provide daily dialysis vitamin (2) Hypertension: -- BP improved w/ UF. Will monitor (3) CHF (congestive heart failure): (4) TIA (transient ischemic attack): -- Patient did not receive thrombolytic therapy -- Dysarthria and L arm weakness have resolved. Will monitor -- Neurology and Vascular Surgery notes reviewed. Patient may have significant bilateral carotid stenosis. Although R lesion is only ~ 60% this may be symptomatic and require intervention Subjective Mr. Pierce was seen & examined in his hospital room this morning. No complications overnight. Speech remains fluent. Patient denies focal neurologic weakness Review of Systems Constitutional: no fever, no chills and no weakness Eyes: no worsening vision and no problem reported Ear, Nose, Mouth, Throat: no problem reported Respiratory: no cough and no dyspnea Cardiovascular: no chest pain, no palpitations and no edema Gastrointestinal: no abdominal pain, no nausea, no vomiting and no diarrhea/loose stools Genitourinary: no dysuria, no urinary hesitancy and no hematuria Musculoskeletal: no back pain Integumentary: no rash Neurologic: no abnormal speech and no problem reported Physical Exam Constitutional: not in distress Eyes: PERRL, conjunctivae normal, anicteric sclerae ENMT: external ear and nose normal, oropharynx normal Neck: trachea midline, no thyromegaly (R IJ THC in place) Respiratory: normal respiratory effort, lungs clear to auscultation Cardiovascular: Rate/Rhythm: regular rate and regular rhythm Extremities: + edema (trace LE swelling) and + AV fistula (+ bruit) Gastrointestinal (Abdomen): normal bowel sounds, soft, nontender, no hepatosplenomegaly Musculoskeletal: Extremities: no cyanosis Skin: no rashes, warm and dry Neurologic: awake; not confused Results & Data Vital Signs (Past 12 Hours) Vital Signs Temp Pulse Pulse Pulse Resp BP BP 07/12/19 11:00 60 151/55 H 07/12/19 10:40 63 118/52 L 07/12/19 10:20 63 147/71 H 07/12/19 10:00 60 136/50 L 07/12/19 09:40 60 138/59 L 07/12/19 09:20 60 152/62 H 07/12/19 09:11 60 160/56 H 07/12/19 09:00 36.5 C 60 07/12/19 07:20 36.7 C 60 20 134/70 07/12/19 07:00 60 07/12/19 02:58 36.8 C 61 20 134/65 Pulse Ox 07/12/19 11:00 07/12/19 10:40 07/12/19 10:20 07/12/19 10:00 07/12/19 09:40 07/12/19 09:20 07/12/19 09:11 07/12/19 09:00 07/12/19 07:20 97 07/12/19 07:00 07/12/19 02:58 97 PG Care Time/CCT Total # of Minutes Spent Total Time Spent with Patient: Total time spent is greater than 50% in coordination of care (as documented) at patient's floor/unit and/or counseling patient: Coding Level of Care Code 85671 Subseq Hosp Care Lvl 3 Diagnoses ESRD (end stage renal disease) on dialysis N18.6; Z99.2 Hypertension I10 CHF (congestive heart failure) I50.9 TIA (transient ischemic attack) G45.9
--- NOTE | 2019-07-12 15:09 | Anesthesiology Consultation ---
Date of Service July 12, 2019 Assessment & Plan (1) Encounter for pre-operative examination: Chart Review Chart Review: Acceptable Risk for Surgery and Patient NOT seen in Pre Admission Testing Consults Requested none History Surgery Operation Date: 07/12/19 14:40 Proposed Procedures p Perm Catheter Removal - Damien Jennings MD Operation Date: 07/13/19 11:55 Proposed Procedures p Right Carotid Endarterectomy; - Damien Jennings MD s Right Femoral Perm Catheter Insertion - Damien Jennings MD Height/Weight Height: 5 ft 8 in Weight: 124 kg Allergies Allergy/AdvReac Type Severity Reaction Status Date / Time promethazine Allergy Unknown UNCONTROLLED Verified 07/09/19 09:55 MUSCLE MOVEMENTS codeine AdvReac Unknown "trips me Verified 07/09/19 09:55 out" Medications Home Medications Medication Instructions Recorded Confirmed Last Taken allopurinol 300 mg PO QAM 02/05/18 07/09/19 07/08/19 aspirin [Aspir-81] 81 mg PO QAM 02/05/18 07/09/19 07/08/19 atorvastatin 80 mg PO HS 02/05/18 07/09/19 07/08/19 loratadine [Claritin] 10 mg PO QAM 02/05/18 07/09/19 07/08/19 melatonin 10 mg PO 02/05/18 07/09/19 07/08/19 nitroglycerin 0.3 mg SUBLINGUAL DIRECTED PRN 02/05/18 07/09/19 02/12/19 2 tablets pantoprazole 40 mg PO QAM 02/05/18 07/09/19 07/08/19 PreserVision AREDS-2 1 tab PO QAM 02/16/18 07/09/19 07/08/19 cholecalciferol (vitamin D3) 2,000 unit PO QAM 02/16/18 07/09/19 07/08/19 [Vitamin D3] cyanocobalamin (vitamin B-12) 1,000 mcg PO QAM 02/16/18 07/09/19 07/08/19 [Vitamin B-12] trazodone 150 mg PO HS 02/16/18 07/09/19 07/08/19 hydralazine 25 mg PO TID 05/15/18 07/09/19 07/08/19 thiamine HCl (vitamin B1) 100 mg 100 mg PO QAM tab 12/22/18 07/09/19 07/08/19 tablet albuterol sulfate 2 puff INHALATION Q4H PRN 02/12/19 07/09/19 Unknown budesonide-formoterol 2 puff INHALATION BID 02/12/19 07/09/19 07/08/19 fluticasone propionate 1 spray INTRANASAL DAILY PRN 02/12/19 07/09/19 Unknown isosorbide mononitrate 30 mg PO QAM 02/12/19 07/09/19 07/08/19 docusate sodium 100 mg PO UD PRN 02/13/19 07/09/19 Unknown tiotropium bromide 1 cap INHALATION QAM 02/13/19 07/09/19 07/08/19 glipizide 10 mg PO QAM 04/22/19 07/09/19 07/08/19 warfarin 2.5 mg PO SUMOWETH@1600 04/22/19 07/09/19 07/08/19 16:00 clonazepam [Klonopin] 0.5 mg PO DAILY PRN 05/03/19 07/09/19 05/10/19 21:00 hydroxyzine HCl 10 mg PO HS 05/04/19 07/09/19 07/08/19 ascorbic acid (vitamin C) 1,000 mg PO QAM 07/09/19 07/09/19 07/08/19 sevelamer carbonate 800 mg PO TIDM 07/09/19 07/09/19 07/08/19 umeclidinium 1 inh INHALATION QAM 07/09/19 07/09/19 07/08/19 venlafaxine 75 mg PO QAM 07/09/19 07/09/19 07/08/19 warfarin 5 mg PO TUSA@1600 07/09/19 07/09/19 07/06/19 16:00 Active Medications Generic Name Dose Route Start Last Admin Trade Name Freq PRN Reason Stop Dose Admin Acetaminophen 650 mg 07/09/19 11:47 07/09/19 21:05 Tylenol PO 08/08/19 11:46 650 mg Q4H PRN Administration Pain or Fever Allopurinol 300 mg 07/09/19 11:47 07/12/19 08:29 Zyloprim PO 08/08/19 11:46 300 mg QAM BONIFACIO Administration Ascorbic Acid 1,000 mg 07/10/19 09:00 07/12/19 08:30 Vitamin C PO 08/09/19 08:59 1,000 mg QAM BONIFACIO Administration Aspirin 81 mg 07/09/19 11:47 07/12/19 08:39 Ecotrin Ectab PO 08/08/19 11:46 81 mg QAM BONIFACIO Administration Atorvastatin Calcium 80 mg 07/09/19 21:00 07/11/19 21:30 Lipitor PO 08/08/19 20:59 80 mg HS BONIFACIO Administration Clonazepam 0.5 mg 07/09/19 11:47 07/10/19 20:33 Klonopin PO 08/08/19 11:46 0.5 mg DAILY PRN Administration Anxiety Cyanocobalamin 1,000 mcg 07/10/19 09:00 07/12/19 08:28 Vitamin B-12 PO 08/09/19 08:59 1,000 mcg QAM BONIFACIO Administration Docusate Sodium 100 mg 07/09/19 11:47 07/11/19 10:04 Colace PO 08/08/19 11:46 100 mg DAILY PRN Administration Constipation Fluticasone/Vilanterol 1 puffs 07/10/19 09:00 07/12/19 08:30 Breo Ellipta 100/25 Mcg Inh INH 08/09/19 08:59 1 puffs DAILY BONIFACIO Administration Hydralazine HCl 25 mg 07/09/19 14:00 07/12/19 14:30 Apresoline PO 08/08/19 13:59 25 mg TID BONIFACIO Administration Hydroxyzine HCl 10 mg 07/09/19 21:00 07/11/19 21:31 Vistaril PO 08/08/19 20:59 10 mg HS BONIFACIO Administration Insulin Aspart 0 units 07/09/19 11:47 07/12/19 12:43 Novolog Flexpen SC 08/08/19 11:46 Not Given ACHS BONIFACIO Ioversol 120 ml 07/09/19 08:57 07/09/19 08:58 Optiray 320 125ml IV 07/13/19 08:56 120 ml ONCE PRN Administration Interaction Checking Isosorbide Mononitrate 30 mg 07/10/19 09:00 07/12/19 08:31 Imdur Extended Rel PO 08/09/19 08:59 Not Given QAM BONIFACIO Loratadine 10 mg 07/10/19 09:00 07/12/19 08:30 Claritin PO 08/09/19 08:59 10 mg QAM BONIFACIO Administration Magnesium Hydroxide 30 ml 07/09/19 11:47 07/11/19 10:04 Milk Of Magnesia PO 08/08/19 11:46 30 ml Q12H PRN Administration Constipation Multivitamins/Minerals 1 tab 07/10/19 09:00 07/12/19 08:31 Multivitamin W/ Minerals Tab PO 08/09/19 08:59 1 tab QAM BONIFACIO Administration Ondansetron HCl 4 mg 07/09/19 11:47 07/09/19 19:28 Zofran IV 08/08/19 11:46 4 mg Q6H PRN Administration Nausea Pantoprazole Sodium 40 mg 07/09/19 11:47 07/12/19 08:29 Protonix PO 08/08/19 11:46 40 mg QAM BON[facility]ACIO Administration Sevelamer HCl 800 mg 07/09/19 12:00 07/12/19 12:38 Renagel PO 08/08/19 11:59 Not Given TIDM BONIFACIO Thiamine HCl 100 mg 07/10/19 09:00 07/12/19 08:29 Vitamin B-1 PO 08/09/19 08:59 100 mg QAM [facility] Administration Trazodone HCl 150 mg 07/09/19 21:00 07/11/19 21:29 Desyrel PO 08/08/19 20:59 150 mg HS BONIFACIO Administration Umeclidinium [place] 1 puffs 07/10/19 09:00 07/12/19 08:30 Incruse Ellipta INH 08/09/19 08:59 1 puffs QAM [facility] Administration Venlafaxine HCl 75 mg 07/09/19 11:47 07/12/19 08:33 Effexor Extended Release PO 08/08/19 11:46 75 mg QAM [facility] Administration Vitamin B Complex/Folic Acid 1 cap 07/10/19 09:00 07/12/19 08:32 Nephrocaps PO 08/09/19 08:59 1 [facility] Administration Vitamin D 2,000 units 07/10/19 09:00 07/12/19 08:31 Vitamin D3 PO 08/09/19 08:59 2,000 units QAM [facility]ACIO Administration Warfarin Sodium 3.75 mg 07/10/19 16:00 07/10/19 19:45 Coumadin PO 08/09/19 15:59 3.75 mg TUSA@1600 BONIFACIO Administration Past Medical History Medical History Anxiety (Chronic) Atrial fibrillation (Chronic) DX 2006 - NO HX CARDIOVERSION Cancer (Resolved) HX OF BLADDER HX OF PROSTATE Cardiac pacemaker in situ (Resolved) Carotid stenosis, bilateral Chronic back pain (Chronic) Chronic kidney disease (Chronic) ESRD Chronic obstructive pulmonary disease (Chronic) on 2 L continuous O2, 3L HS with BiPAP (not using BiPAP currently due to mask issues) Coronary arteriosclerosis (Chronic) S/P single stent 2013, denies [place]. Depression (Chronic) Diabetes mellitus, type 2 (Chronic) Dialysis patient MON, WED AND FRI (RIGHT SHOULDER AREA CURRENT ACCESS) ESRD (end stage renal disease) on dialysis GERD (gastroesophageal reflux disease) (Chronic) Gout continue allopurinol for prophylaxis Hiatal hernia (Chronic) History of CVA (cerebrovascular accident) 11/2017 CVA. Per pt's pt had TIA 11/2018 (possibly CVA?). Residual left sided weakness History of kidney stones HTN (hypertension), benign (Resolved) Hyperlipidemia (Chronic) Hypertension Osteoarthritis (Chronic) Pacemaker (Chronic) 2011 IMPLANTED FOR A-FIB Peripheral neuropathy (Chronic) Post traumatic stress disorder (Chronic) Presence of urostomy Sleep apnea (Chronic) BIPAP Stroke (Resolved) CT SCAN NOVEMBER 2017 SHOWED EVIDENCE OF AN OLD STROKE ? EXACT DATE NOVEMBER 2017 SLURRED SPEECH/LEFT FOOT WEAKNESS CURRENTLY STILL HAS WEAKNESS IN LEFT SIDE TIA (transient ischemic attack) Transient ischemic attack (TIA) (Resolved) HX "MINI STROKES" Dialysis 07/12/2019. Nephrology following patient during this hospital admission. TIA THIS ADMISSION. DID NOT RECEIVE THROMBOLYTIC THERAPY. DYSARTHRIA AND LEFT ARM WEAKNESS HAVE IMPROVED. STROKE-LIKE SYMPTOMS THIS ADMISSION: Uncertain etiology, possibly CVA however unable to obtain MRI 2/2 pacemaker. Past Family History Family History Other Family history non-contributory Past Surgical History Surgical History History of biopsy of bladder (Resolved) History of cardiac cath (Resolved) STENT PLACED 2011 History of cataract surgery (Resolved) RT/LEFT History of cholecystectomy (Resolved) History of colonoscopy History of heart artery stent (Resolved) History of laminectomy (Resolved) LUMBAR History of prostatectomy (Resolved) History of tooth extraction (Resolved) History of urologic surgery FOR KIDNEY STONE History of urostomy BLADDER REMOVED D/T CANCER STOMA REVISED Pericardial disease (Resolved) PERICARDIAL WINDOW/MICROSCOPIC ([facility]) 2014 Social History Smoking Status: Former smoker tobacco type: cigarettes Smoking End Date: 2000 Hx Alcohol Use: No Hx Substance Use: No substance use type: does not use Physical Exam Vital Signs Last Vital Signs Temp 36.4 C L 07/12/19 14:30 Pulse 62 07/12/19 14:30 Resp 18 07/12/19 14:30 BP 150/68 H 07/12/19 14:30 Pulse Ox 98 07/12/19 14:30 Testing Laboratory Results 07/12/19 07:25 07/12/19 07:25 PT 21.8 Seconds (9.0-12.0) H 07/12/19 07:25 INR 2.3 (0.9-1.1) H 07/12/19 07:25 APTT 41.1 Seconds (21.0-31.0) H 07/09/19 09:40 Hemoglobin A1c 7.4 % (4.5-5.6) H 07/10/19 08:32 Blood Type O Negative 07/09/19 09:40 Antibody Screen NEGATIVE 07/09/19 09:40 07/12/19 07/12/19 11:55 07:32 POC Glucose 105 H 135 H Electrocardiogram Date: 05/04/19 Ventricular-paced rhythm (HR 74) with occasional Premature ventricular complexes Abnormal ECG When compared with ECG of 15-FEB-2019 11:12, Premature ventricular complexes are now Present Vent. rate has increased BY 14 BPM Confirmed by Lionel Blount ([id number]) on 05/04/2019 6:11:28 PM Chest X-Ray Date: 07/09/19 XR chest 1V portable HISTORY: Shortness of breath. stroke, diaysis, poss chf COMPARISON: Chest 05/04/2019. FINDINGS: No pneumothorax. No pleural effusions. The heart remains enlarged. There is left-sided dual-chamber pacemaker. Right jugular catheter terminates at the SVC. A few bibasilar linear densities favor subsegmental atelectasis. The right upper lobe nodular density seen on the prior chest CTA is not well vis ualized by this modality. There is mild central pulmonary vascular congestion without overt edema. This has progressed. IMPRESSION: Interval progression of the mild central pulmonary vascular congestion without overt edema. Stable cardiomegaly. Echocardiogram Date: 02/16/19 LV systolic function is normal. No RWMA Mild LVH EF 55-60% Mild MR, Mild TR Other Testing Head CT 07/09/2019: FINDINGS: No acute intracranial hemorrhage, midline shift or mass effect is present. Ventricular system is normal. The basilar cisterns are patent. There are no extra-axial collections. Old infarct within left parietal lobe is noted. There is an old lacunar infarct within left caudate head. White matter hypodensity suggests small vessel disease. The appearance of the brain is unchanged. There are no findings to suggest acute dural sinus thrombosis or acute territorial infarct. There are no significant caliber abnormality. There is minimal sinus mucosal thickening. IMPRESSION: 1. No acute intracranial findings. 2. No change in appearance of the brain. Old left parietal lobe infarct. Pacemaker Remote Transmission 11/13/18 [employer] Mode: VVIR 97% RV paced Battery: 7 yrs remaining Note: Evaluation done, Carelink monitor given, teaching done, paired in clinic, he will return in 1 yr.
[2019-07-12] MEDS: ONDANSETRON INJ 2 MG/ML 2 ML VIAL IV PRN (15:49)
--- NOTE | 2019-07-12 17:52 | Hospitalist Progress Note ---
Date of Service July 12, 2019 Assessment & Plan (1) Stroke-like symptoms: TIA - had left sided weakness and dysarthria at presentation. Symptoms resolved. Unable to obtain MRI due to MRI incompatible pacemaker. CTA neck with b/l carotid stenosis. Concern that right-sided ICA stenosis contributed to TIA. Vascular (Dr Jennings) planning for perm cath removal today and right-sided CEA on 07/13. Remains on aspirin for secondary prevention. Lipid panel unable to be completed due to TG at 536; remains on high-dose statin but triglyceride lowering agent should be considered (niacin, fibrate, fish oil, etc). PT/OT/ST evals appreciated. Neuro exam remains stable. (2) ESRD (end stage renal disease) on dialysis: Schedule - M/W/F permcath to be removed today has RUE fistula in place - was functioning well prior to admission (3) Acute hyperkalemia: resolved s/p addition HD this admission (4) Hypertension: continue home meds largely controlled (5) Gout: continue home meds no flares at this time (6) Thiamine deficiency: continue thiamine 100mg daily (7) Depression with anxiety: continue home meds no issues (8) COPD (chronic obstructive pulmonary disease): continue home meds no flare at this time (9) Paroxysmal atrial fibrillation: warfarin on hold for upcoming CEA INR in am (10) Type 2 diabetes mellitus without complication: hold oral agent A1c 7.4 SSI PRN (11) Pacemaker: Unable to obtain MRI due to this paced on monitor stable (12) History of stroke: with concurrent TIA see above (13) PTSD (post-traumatic stress disorder): continue home meds (14) Lung nodule: seen on CT, RUL - 2.5cm in size Recs for f/u CT in 1 month pulmonary nodule program can follow (15) Morbid obesity with BMI of 40.0-44.9, adult: BMI 40-41 (16) DVT prophylaxis: Coumadin -- but on hold for upcoming CEA updated at bedside Admission and Anticipated Discharge Date Admission Date: July 09, 2019 Subjective saw patient post-dialysis today he was awaiting permcath removal from right chest NPO had small emesis after HD - dry moyaves only has had this in the past they were unable to access his RUE AV fistula and thus used the permcath HOWEVER - they were able to access the AV fistula 3 times in the last 10 days as outpatient denied any new or recurrent neurological symptoms Review of Systems Constitutional: no fever Respiratory: no cough and no dyspnea Cardiovascular: no chest pain, no dyspnea at rest and no orthopnea Gastrointestinal: no abdominal pain Neurologic: no localized weakness, no numbness and no abnormal speech Physical Exam Constitutional: + morbidly obese; no acute distress and no altered mental status ENMT: external ear and nose normal, oropharynx normal Respiratory: normal respiratory effort, lungs clear to auscultation Cardiovascular: Rate/Rhythm: regular rate and regular rhythm Heart Sounds: normal S1 and normal S2; no murmur Vessels: posterior tibial pulses present and dorsalis pedis pulses present; no JVD Extremities: no edema Gastrointestinal (Abdomen): normal bowel sounds, soft, nontender, no hepatosplenomegaly Skin: AV fistual right arm; permcath right chest clean Neurologic: moves all extremities (strength 5/5 x 4 extremities ); no focal mo tor deficits Speech / Cognition: normal speech no facial droop Results & Data ([facility]) Vital Signs (Past 12 Hours) Vital Signs Temp Pulse Pulse Pulse Resp BP BP 07/12/19 14:30 36.4 C L 62 18 150/68 H 07/12/19 13:00 63 147/53 H 07/12/19 12:40 60 127/52 L 07/12/19 12:20 60 98/67 L 07/12/19 12:00 60 146/54 H 07/12/19 11:40 62 133/62 07/12/19 11:20 60 120/57 L 07/12/19 11:00 60 151/55 H 07/12/19 10:40 63 118/52 L 07/12/19 10:20 63 147/71 H 07/12/19 10:00 60 136/50 L 07/12/19 09:40 60 138/59 L 07/12/19 09:20 60 152/62 H 07/12/19 09:11 60 160/56 H 07/12/19 09:00 36.5 C 60 07/12/19 07:20 36.7 C 60 20 134/70 07/12/19 07:00 60 Pulse Ox 07/12/19 14:30 98 07/12/19 13:00 07/12/19 12:40 07/12/19 12:20 07/12/19 12:00 07/12/19 11:40 07/12/19 11:20 07/12/19 11:00 07/12/19 10:40 07/12/19 10:20 07/12/19 10:00 07/12/19 09:40 07/12/19 09:20 07/12/19 09:11 07/12/19 09:00 07/12/19 07:20 97 07/12/19 07:00 Laboratory Results Laboratory Results - last 24 hr 07/11/19 07/12/19 07/12/19 20:10 07:25 07:25 WBC 5.41 RBC 3.61 L Hgb 11.3 L Hct 32.8 L MCV 90.9 MCH 31.3 MCHC 34.5 RDW Std Deviation 49.6 H RDW Coeff of Dacia 15.0 H Plt Count 136 MPV 11.2 H PT INR Sodium 129 L Potassium 4.5 Chloride 96 L Carbon Dioxide 23 Anion Gap 10.0 BUN 35 H D Creatinine 6.18 H* D Est Cr Clr Drug Dosing 14.1 Est GFR ( Amer) 9.7 Est GFR (Non-Af Amer) 8.3 BUN/Creatinine Ratio 5.7 L Glucose 109 H POC Glucose 137 H Calcium 8.7 07/12/19 07/12/19 07/12/19 07:25 07:32 11:55 WBC RBC Hgb Hct MCV MCH MCHC RDW Std Deviation RDW Coeff of Dacia Plt Count MPV PT 21.8 H INR 2.3 H Sodium Potassium Chloride Carbon Dioxide Anion Gap BUN Creatinine Est Cr Clr Drug Dosing Est GFR ( Amer) Est GFR (Non-Af Amer) BUN/Creatinine Ratio Glucose POC Glucose 135 H 105 H Calcium 07/12/19 16:32 WBC RBC Hgb Hct MCV MCH MCHC RDW Std Deviation RDW Coeff of Dacia Plt Count MPV PT INR Sodium Potassium Chloride Carbon Dioxide Anion Gap BUN Creatinine Est Cr Clr Drug Dosing Est GFR ( Amer) Est GFR (Non-Af Amer) BUN/Creatinine Ratio Glucose POC Glucose 127 H Calcium PG Care Time/CCT Total # of Minutes Spent Total Time Spent with Patient: Total time spent is greater than 50% in coordination of care (as documented) at patient's floor/unit and/or counseling patient: Coding Level of Care Code 53785 Subseq Hosp Care Lvl 3 Diagnoses Stroke-like symptoms R29.90 ESRD (end stage renal disease) on dialysis N18.6; Z99.2 Acute hyperkalemia E87.5 Hypertension I10 Gout M10.9 Thiamine deficiency E51.9 Depression with anxiety F41.8 COPD (chronic obstructive pulmonary disease) J44.9 COPD type: unspecified COPD Paroxysmal atrial fibrillation I48.0 Type 2 diabetes mellitus without complication E11.9 Pacemaker Z95.0 History of stroke Z86.73 PTSD (post-traumatic stress disorder) F43.10 Lung nodule R91.1 Morbid obesity with BMI of 40.0-44.9, adult E66.01; Z68.41 DVT prophylaxis Z29.9 (1) COPD (chronic obstructive pulmonary disease) COPD type: unspecified COPD Qualified Code(s): J44.9 - Chronic obstructive pulmonary disease, unspecified
--- NOTE | 2019-07-12 18:01 | History & Physical Bridge Note ---
Date of Service July 12, 2019 History & Physical Bridge Note Patient for a permcath removal today and carotid endart and replacement of a permcath tomorrow. I have discussed the risks options and benefits of the procedure with the patient. The patient understands the risks options and benefits and agrees to the procedure. I have examined the patient, reviewed the History & Physical and in the interval since the performance of the History & Physical I have noted the following changes of clinical significance: no changes noted
[2019-07-12] MEDS ORDERED: LIDOCAINE HCL 1% 20 ML VIAL ONE (18:27)
[2019-07-12] MEDS ORDERED: ATROPINE SULFATE 0.1 MG/ML 10ML SYR IV PRN (18:33)
[2019-07-12] MEDS ORDERED: fentaNYL citrate 100 MCG/2 ML VIAL IV PRN (18:33)
[2019-07-12] MEDS ORDERED: ePHEDrine sulfate 50 MG/ML AMP IV PRN (18:33)
--- NOTE | 2019-07-12 18:33 | Anesthesiology Consultation ---
Date of Service July 12, 2019 Assessment & Plan ASA ASA4 Proposed Anesthesia Anesthesia Type: MAC Risk / Benefits Reviewed With: PT / POA / Parent / Guardian, Accepts Plan and Informed Consent Obtained History Surgery Operation Date: 07/12/19 14:40 Proposed Procedures p Perm Catheter Removal - Damien Jennings MD Operation Date: 07/13/19 11:55 Proposed Procedures p Right Carotid Endarterectomy; - Damien Jennings MD s Right Femoral Perm Catheter Insertion - Damien Jennings MD Height/Weight Height: 5 ft 8 in Weight: 124 kg Allergies Allergy/AdvReac Type Severity Reaction Status Date / Time promethazine Allergy Unknown UNCONTROLLED Verified 07/09/19 09:55 MUSCLE MOVEMENTS codeine AdvReac Unknown "trips me Verified 07/09/19 09:55 out" Medications Home Medications Medication Instructions Recorded Confirmed Last Taken allopurinol 300 mg PO QAM 02/05/18 07/09/19 07/08/19 aspirin [Aspir-81] 81 mg PO QAM 02/05/18 07/09/19 07/08/19 atorvastatin 80 mg PO HS 02/05/18 07/09/19 07/08/19 loratadine [Claritin] 10 mg PO QAM 02/05/18 07/09/19 07/08/19 melatonin 10 mg PO 02/05/18 07/09/19 07/08/19 nitroglycerin 0.3 mg SUBLINGUAL DIRECTED PRN 02/05/18 07/09/19 02/12/19 2 tablets pantoprazole 40 mg PO QAM 02/05/18 07/09/19 07/08/19 PreserVision AREDS-2 1 tab PO QAM 02/16/18 07/09/19 07/08/19 cholecalciferol (vitamin D3) 2,000 unit PO QAM 02/16/18 07/09/19 07/08/19 [Vitamin D3] cyanocobalamin (vitamin B-12) 1,000 mcg PO QAM 02/16/18 07/09/19 07/08/19 [Vitamin B-12] trazodone 150 mg PO HS 02/16/18 07/09/19 07/08/19 hydralazine 25 mg PO TID 05/15/18 07/09/19 07/08/19 thiamine HCl (vitamin B1) 100 mg 100 mg PO QAM tab 12/22/18 07/09/19 07/08/19 tablet albuterol sulfate 2 puff INHALATION Q4H PRN 02/12/19 07/09/19 Unknown budesonide-formoterol 2 puff INHALATION BID 02/12/19 07/09/19 07/08/19 fluticasone propionate 1 spray INTRANASAL DAILY PRN 02/12/19 07/09/19 Unknown isosorbide mononitrate 30 mg PO QAM 02/12/19 07/09/19 07/08/19 docusate sodium 100 mg PO UD PRN 02/13/19 07/09/19 Unknown tiotropium bromide 1 cap INHALATION QAM 02/13/19 07/09/19 07/08/19 glipizide 10 mg PO QAM 04/22/19 07/09/19 07/08/19 warfarin 2.5 mg PO SUMOWETH@1600 04/22/19 07/09/19 07/08/19 16:00 clonazepam [Klonopin] 0.5 mg PO DAILY PRN 05/03/19 07/09/19 05/10/19 21:00 hydroxyzine HCl 10 mg PO HS 05/04/19 07/09/19 07/08/19 ascorbic acid (vitamin C) 1,000 mg PO QAM 07/09/19 07/09/19 07/08/19 sevelamer carbonate 800 mg PO TIDM 07/09/19 07/09/19 07/08/19 umeclidinium 1 inh INHALATION QAM 07/09/19 07/09/19 07/08/19 venlafaxine 75 mg PO QAM 07/09/19 07/09/19 07/08/19 warfarin 5 mg PO TUSA@1600 07/09/19 07/09/19 07/06/19 16:00 Active Medications Generic Name Dose Route Start Last Admin Trade Name Freq PRN Reason Stop Dose Admin Acetaminophen 650 mg 07/09/19 11:47 07/09/19 21:05 Tylenol PO 08/08/19 11:46 650 mg Q4H PRN Administration Pain or Fever Allopurinol 300 mg 07/09/19 11:47 07/12/19 08:29 Zyloprim PO 08/08/19 11:46 300 mg QAM BONIFACIO Administration Ascorbic Acid 1,000 mg 07/10/19 09:00 07/12/19 08:30 Vitamin C PO 08/09/19 08:59 1,000 mg QAM BONIFACIO Administration Aspirin 81 mg 07/09/19 11:47 07/12/19 08:39 Ecotrin Ectab PO 08/08/19 11:46 81 mg QAM BONIFACIO Administration Atorvastatin Calcium 80 mg 07/09/19 21:00 07/11/19 21:30 Lipitor PO 08/08/19 20:59 80 mg HS BONIFACIO Administration Clonazepam 0.5 mg 07/09/19 11:47 07/10/19 20:33 Klonopin PO 08/08/19 11:46 0.5 mg DAILY PRN Administration Anxiety Cyanocobalamin 1,000 mcg 07/10/19 09:00 07/12/19 08:28 Vitamin B-12 PO 08/09/19 08:59 1,000 mcg QAM BONIFACIO Administration Docusate Sodium 100 mg 07/09/19 11:47 07/11/19 10:04 Colace PO 08/08/19 11:46 100 mg DAILY PRN Administration Constipation Fluticasone/Vilanterol 1 puffs 07/10/19 09:00 07/12/19 08:30 Breo Ellipta 100/25 Mcg Inh INH 08/09/19 08:59 1 puffs DAILY BONIFACIO Administration Hydralazine HCl 25 mg 07/09/19 14:00 07/12/19 14:30 Apresoline PO 08/08/19 13:59 25 mg TID BONIFACIO Administration Hydroxyzine HCl 10 mg 07/09/19 21:00 07/11/19 21:31 Vistaril PO 08/08/19 20:59 10 mg HS BONIFACIO Administration Insulin Aspart 0 units 07/09/19 11:47 07/12/19 17:22 Novolog Flexpen SC 08/08/19 11:46 Not Given ACHS BONIFACIO Ioversol 120 ml 07/09/19 08:57 07/09/19 08:58 Optiray 320 125ml IV 07/13/19 08:56 120 ml ONCE PRN Administration Interaction Checking Isosorbide Mononitrate 30 mg 07/10/19 09:00 07/12/19 08:31 Imdur Extended Rel PO 08/09/19 08:59 Not Given QAM BONIFACIO Loratadine 10 mg 07/10/19 09:00 07/12/19 08:30 Claritin PO 08/09/19 08:59 10 mg QAM BONIFACIO Administration Magnesium Hydroxide 30 ml 07/09/19 11:47 07/11/19 10:04 Milk Of Magnesia PO 08/08/19 11:46 30 ml Q12H PRN Administration Constipation Multivitamins/Minerals 1 tab 07/10/19 09:00 07/12/19 08:31 Multivitamin W/ Minerals Tab PO 08/09/19 08:59 1 tab QAM BONIFACIO Administration Ondansetron HCl 4 mg 07/09/19 11:47 07/12/19 15:49 Zofran IV 08/08/19 11:46 4 mg Q6H PRN Administration Nausea Pantoprazole Sodium 40 mg 07/09/19 11:47 07/12/19 08:29 Protonix PO 08/08/19 11:46 40 mg QAM BONIFACIO Administration Sevelamer HCl 800 mg 07/09/19 12:00 07/12/19 15:16 Renagel PO 08/08/19 11:59 Not Given TIDM BONIFACIO Thiamine HCl 100 mg 07/10/19 09:00 07/12/19 08:29 Vitamin B-1 PO 08/09/19 08:59 100 mg QAM BONIFACIO Administration Trazodone HCl 150 mg 07/09/19 21:00 07/11/19 21:29 Desyrel PO 08/08/19 20:59 150 mg HS BONIFACIO Administration Umeclidinium [place] 1 puffs 07/10/19 09:00 07/12/19 08:30 Incruse Ellipta INH 08/09/19 08:59 1 puffs QAM [facility] Administration Venlafaxine HCl 75 mg 07/09/19 11:47 07/12/19 08:33 Effexor Extended Release PO 08/08/19 11:46 75 mg QAM BONIFACIO Administration Vitamin B Complex/Folic Acid 1 cap 07/10/19 09:00 07/12/19 08:32 Nephrocaps PO 08/09/19 08:59 1 cap QAM [facility] Administration Vitamin D 2,000 units 07/10/19 09:00 07/12/19 08:31 Vitamin D3 PO 08/09/19 08:59 2,000 units QAM BONIFACIO Administration Warfarin Sodium 3.75 mg 07/10/19 16:00 07/10/19 19:45 Coumadin PO 08/09/19 15:59 3.75 mg TUSA@1600 BONIFACIO Administration NPO Date Last Intake of Fluids: 07/12/19 Time Last Intake of Fluids: 17:00 Date Last Intake of Solids: 07/11/19 Time Last Intake of Solids: 17:00 Past Medical History Medical History Anxiety (Chronic) Atrial fibrillation (Chronic) DX 2006 - NO HX CARDIOVERSION Cancer (Resolved) HX OF BLADDER HX OF PROSTATE Cardiac pacemaker in situ (Resolved) Carotid stenosis, bilateral Chronic back pain (Chronic) Chronic kidney disease (Chronic) ESRD Chronic obstructive pulmonary disease (Chronic) on 2 L continuous O2, 3L HS with BiPAP (not using BiPAP currently due to mask issues) Coronary arteriosclerosis (Chronic) S/P single stent 2013, denies NV. Depression (Chronic) Diabetes mellitus, type 2 (Chronic) Dialysis patient MON, WED AND FRI (RIGHT SHOULDER AREA CURRENT ACCESS) ESRD (end stage renal disease) on dialysis GERD (gastroesophageal reflux disease) (Chronic) Gout continue allopurinol for prophylaxis Hiatal hernia (Chronic) History of CVA (cerebrovascular accident) 11/2017 CVA. Per pt's pt had TIA 11/2018 (possibly CVA?). Residual left sided weakness History of kidney stones HTN (hypertension), benign (Resolved) Hyperlipidemia (Chronic) Hypertension Osteoarthritis (Chronic) Pacemaker (Chronic) 2011 IMPLANTED FOR A-FIB Peripheral neuropathy (Chronic) Post traumatic stress disorder (Chronic) Presence of urostomy Sleep apnea (Chronic) BIPAP Stroke (Resolved) CT SCAN NOVEMBER 2017 SHOWED EVIDENCE OF AN OLD STROKE ? EXACT DATE NOVEMBER 2017 SLURRED SPEECH/LEFT FOOT WEAKNESS CURRENTLY STILL HAS WEAKNESS IN LEFT SIDE TIA (transient ischemic attack) Transient ischemic attack (TIA) (Resolved) HX "MINI STROKES" Exercise / Class Metabolic Activity III < 4 Walking/Shop/Light housework Past Family History Family History Other Family history non-contributory Past Surgical History Surgical History History of biopsy of bladder (Resolved) History of cardiac cath (Resolved) STENT PLACED 2011 History of cataract surgery (Resolved) RT/LEFT History of cholecystectomy (Resolved) History of colonoscopy History of heart artery stent (Resolved) History of laminectomy (Resolved) LUMBAR History of prostatectomy (Resolved) History of tooth extraction (Resolved) History of urologic surgery FOR KIDNEY STONE History of urostomy BLADDER REMOVED D/T CANCER STOMA REVISED Pericardial disease (Resolved) PERICARDIAL WINDOW/MICROSCOPIC ([facility]) 2014 Past Anesthesia History No Hx of Anesthesia Complications and No Family Hx of Anesthesia Complications History of PONV No Hx of PONV and No Hx of Motion Sickness Social History Smoking Status: Former smoker tobacco type: cigarettes Smoking End Date: 2000 Hx Alcohol Use: No Hx Substance Use: No substance use type: does not use Review of Systems denies fever/cough/ colds/ chest pain/ SOB/ pt with recent stroke with left leg weakness. hx of TIA Constitutional: no fever and no chills Respiratory: no cough and no dyspnea denies MJ Cardiovascular: no chest pain and no dyspnea on exertion Physical Exam Vital Signs Last Vital Signs Temp 36.7 C 07/12/19 18:17 Pulse 62 07/12/19 18:17 Resp 18 07/12/19 18:17 BP 147/65 H 07/12/19 18:17 Pulse Ox 93 07/12/19 18:17 Constitutional + morbidly obese ENMT Mouth: + edentulous; no TMJ abnormality and no dentition abnormality Thyromental Distance: < 3.5 Finger Breadths Mallampati Class: III Neck + short neck and + thick neck; neck extension not limited Respiratory normal respiratory effort; no respiratory distress Auscultation: lungs clear to auscultation bilaterally Cardiovascular Rate/Rhythm: regular rate and regular rhythm Neurologic moves all extremities Psychiatric Orientation: alert and oriented x 3 Testing Laboratory Results 07/12/19 07:25 07/12/19 07:25 PT 21.8 Seconds (9.0-12.0) H 07/12/19 07:25 INR 2.3 (0.9-1.1) H 07/12/19 07:25 APTT 41.1 Seconds (21.0-31.0) H 07/09/19 09:40 Hemoglobin A1c 7.4 % (4.5-5.6) H 07/10/19 08:32 Blood Type O Negative 07/09/19 09:40 Antibody Screen NEGATIVE 07/09/19 09:40 07/12/19 07/12/19 07/12/19 16:32 11:55 07:32 POC Glucose 127 H 105 H 135 H
[2019-07-12] MEDS ORDERED: fentaNYL citrate 100 MCG/2 ML VIAL ONE (18:36)
[2019-07-12] MEDS ORDERED: MIDAZOLAM HCL 1 MG/ML 2ML VIAL ONE (18:36)
--- NOTE | 2019-07-12 19:09 | Post Operative Brief Note ---
Immediate Post Op Note v1 Date of Surgery July 12, 2019 Pre & Post Diagnosis Operation Date: 07/12/19 14:40 Pre-Op Diagnosis: status post perm cath removal Post-Op Diagnosis: status post perm cath removal Operation Date: 07/13/19 11:55 <No data on this case meets the specified criteria> I identified the patient and participated in the time-out.: Yes Procedure Operation Date: 07/12/19 14:40 Actual Procedures p Perm Catheter Removal(Not Applicable) - Damien Jennings MD Operation Date: 07/13/19 11:55 <No data on this case meets the specified criteria> Surgeon Damien Jennings MD [employer] MD Starr Estimated Blood Loss 0 Findings Consistent with Post-Op Diagnosis Anesthesia Type MAC Complications none Disposition Accompanied Patient To Recovery: No Disposition: Recovery Room
--- NOTE | 2019-07-12 19:10 | Anesthesiology Progress Note ---
Date of Service July 12, 2019 Anesthesia Post Procedure Vital Signs Vital Signs: Temp Pulse Pulse Pulse Resp BP BP 07/12/19 18:17 36.7 C 62 18 147/65 H 07/12/19 14:30 36.4 C L 62 18 150/68 H 07/12/19 13:20 36.7 C 61 142/87 H 07/12/19 13:00 63 147/53 H 07/12/19 12:40 60 127/52 L 07/12/19 12:20 60 98/67 L 07/12/19 12:00 60 146/54 H 07/12/19 11:40 62 133/62 07/12/19 11:20 60 120/57 L 07/12/19 11:00 60 151/55 H 07/12/19 10:40 63 118/52 L 07/12/19 10:20 63 147/71 H 07/12/19 10:00 60 136/50 L 07/12/19 09:40 60 138/59 L 07/12/19 09:20 60 152/62 H 07/12/19 09:11 60 160/56 H 07/12/19 09:00 36.5 C 60 07/12/19 07:20 36.7 C 60 20 134/70 07/12/19 07:00 60 07/12/19 02:58 36.8 C 61 20 134/65 07/11/19 23:26 37 C 63 20 146/61 H 07/11/19 22:00 69 Pulse Ox 07/12/19 18:17 93 07/12/19 14:30 98 07/12/19 13:20 07/12/19 13:00 07/12/19 12:40 07/12/19 12:20 07/12/19 12:00 07/12/19 11:40 07/12/19 11:20 07/12/19 11:00 07/12/19 10:40 07/12/19 10:20 07/12/19 10:00 07/12/19 09:40 07/12/19 09:20 07/12/19 09:11 07/12/19 09:00 07/12/19 07:20 97 07/12/19 07:00 07/12/19 02:58 97 07/11/19 23:26 96 07/11/19 22:00 Transfer of Care Handoff Completed per policy Notes Mental Status: alert / awake / arousable and participated in evaluation Patient Amnestic to Procedure: Yes Nausea / Vomiting: adequately controlled Pain: adequately controlled Airway Patency, RR, SpO2: stable & adequate BP & HR: stable & adequate Hydration State: stable & adequate Anesthetic Complications: no major complications apparent and Pt Satisfied with anesthetic care
--- NOTE | 2019-07-12 19:14 | Operative Report ---
Post Operative Report Pre & Post Diagnosis Operation Date: 07/12/19 14:40 Pre-Op Diagnosis: status post perm cath removal Post-Op Diagnosis: status post perm cath removal Operation Date: 07/13/19 11:55 <No data on this case meets the specified criteria> I identified the patient and participated in the time-out.: Yes Procedure Operation Date: 07/12/19 14:40 Actual Procedures p Perm Catheter Removal(Not Applicable) - Damien Jennings MD Operation Date: 07/13/19 11:55 <No data on this case meets the specified criteria> Surgeon Dr. Jennings Floor Helper MD Starr Estimated Blood Loss 0 Findings Consistent with Post-Op Diagnosis Specimens none Anesthesia Type Local Complications none Disposition Accompanied Patient To Recovery: No Disposition: Recovery Room Indications s/p perm catheter placement with need for R CEA Description of Procedure The patient was taken to the operating room and placed in the supine position. The right side of the neck, chest wall and catheter were prepped and draped in a sterile manner. Local anesthesia was then accomplished. Using sharp and blunt dissection, the cuff of the permcath was freed up from the surrounding fibrous tissue. The permcath and cuff were completely removed. Pressure was then applied and adequate hemostasis was obtained. A sterile dressing was then applied. The patient left the angio suite in good condition and tolerated the procedure well. I attest to the content of the Intraoperative Record and any orders documented therein. Any exceptions are noted below.
[2019-07-12] MEDS: TRAZODONE HCL 50 MG TAB PO SCH (19:52)
[2019-07-12] MEDS: ATORVASTATIN 40 MG TAB PO SCH (19:53)
[2019-07-12] MEDS: hydrOXYzine HCl 10 MG TAB PO SCH (19:53)
[2019-07-13] MEDS ORDERED: CEFAZOLIN 3000MG 72.5 ML IV ONE ×2 (06:00→10:45)
[2019-07-13 06:39] LABS: INR 1.7 (0.9-1.1); Prothrombin Time 16.8 Seconds (9.0-12.0)
[2019-07-13 07:12] LABS: BUN Creatinine Ratio 4.6 (10-20); Calcium 8.5 mg/dl (8.5-10.1); Est GFR (African American) 13.1; Est GFR (Non-African American) 11.3
--- NOTE | 2019-07-13 07:35 | Anesthesiology Progress Note ---
Date of Service July 13, 2019 Anesthesia Post Procedure Vital Signs Vital Signs: Temp Pulse Pulse Pulse Pulse Resp BP 07/13/19 07:24 36.8 C 61 18 07/13/19 07:00 60 07/13/19 04:38 36.8 C 63 18 07/12/19 23:44 60 07/12/19 23:29 36.5 C 60 18 07/12/19 22:03 63 07/12/19 20:02 36.7 C 60 07/12/19 19:15 36.4 C L 60 18 07/12/19 19:05 36.3 C L 69 20 07/12/19 18:17 36.7 C 62 18 07/12/19 14:30 36.4 C L 62 18 07/12/19 13:20 36.7 C 61 07/12/19 13:00 63 147/53 H 07/12/19 12:40 60 127/52 L 07/12/19 12:20 60 98/67 L 07/12/19 12:00 60 146/54 H 07/12/19 11:40 62 133/62 07/12/19 11:20 60 120/57 L 07/12/19 11:00 60 151/55 H 07/12/19 10:40 63 118/52 L 07/12/19 10:20 63 147/71 H 07/12/19 10:00 60 136/50 L 07/12/19 09:40 60 138/59 L 07/12/19 09:20 60 152/62 H 07/12/19 09:11 60 160/56 H 07/12/19 09:00 36.5 C 60 BP Pulse Ox 07/13/19 07:24 136/67 92 07/13/19 07:00 07/13/19 04:38 144/66 H 90 07/12/19 23:44 07/12/19 23:29 138/62 91 07/12/19 22:03 07/12/19 20:02 127/53 L 93 07/12/19 19:15 135/53 L 94 07/12/19 19:05 141/65 H 97 07/12/19 18:17 147/65 H 93 07/12/19 14:30 150/68 H 98 07/12/19 13:20 142/87 H 07/12/19 13:00 07/12/19 12:40 07/12/19 12:20 07/12/19 12:00 07/12/19 11:40 07/12/19 11:20 07/12/19 11:00 07/12/19 10:40 07/12/19 10:20 07/12/19 10:00 07/12/19 09:40 07/12/19 09:20 07/12/19 09:11 07/12/19 09:00 Notes Mental Status: alert / awake / arousable and participated in evaluation Nausea / Vomiting: adequately controlled Pain: adequately controlled Airway Patency, RR, SpO2: stable & adequate BP & HR: stable & adequate Hydration State: stable & adequate
[2019-07-13] MEDS: INSULIN ASPART 100 UNITS/ML 3 ML PEN SC SCH ×4 (07:52→21:05)
[2019-07-13] MEDS: SEVELAMER HCL 800 MG TABLET PO SCH ×3 (07:52→18:31)
[2019-07-13] MEDS: UMECLIDINIUM BROMIDE 62.5MCG/BLISTER 7 PUFFS/INHALER INH SCH (09:09)
[2019-07-13] MEDS: FLUTICASONE/VILANTEROL 100/25MCG 14 PUFFS/INHALER INH SCH (09:10)
--- NOTE | 2019-07-13 10:01 | History & Physical Bridge Note ---
Date of Service July 13, 2019 History & Physical Bridge Note Patient for a right CEA and insertion of femoral permcath for today. I have discussed the risks options and benefits of the procedure with the patient. The patient understands the risks options and benefits and agrees to the procedure. I have examined the patient, reviewed the History & Physical and in the interval since the performance of the History & Physical I have noted the following changes of clinical significance: no changes noted
[2019-07-13] MEDS ORDERED: ATROPINE SULFATE 0.1 MG/ML 10ML SYR IV PRN (10:21)
[2019-07-13] MEDS ORDERED: fentaNYL citrate 100 MCG/2 ML VIAL IV PRN (10:21)
[2019-07-13] MEDS ORDERED: ONDANSETRON INJ 2 MG/ML 2 ML VIAL IV PRN (10:21)
[2019-07-13] MEDS ORDERED: LABETALOL HCL IV 5 MG/ML 20ML IV PRN (10:21)
[2019-07-13] MEDS ORDERED: PHENYLEPHRINE 100MCG/ML 5ML SYR IV PRN (10:21)
[2019-07-13] MEDS ORDERED: ePHEDrine sulfate 50 MG/ML AMP IV PRN (10:21)
--- NOTE | 2019-07-13 10:28 | Nephrology Progress Note ---
Date of Service July 13, 2019 Assessment & Plan (1) ESRD (end stage renal disease) on dialysis: -- HD MWF -- BP and volume status are acceptable -- TDC removed. AVF (2) Hypertension: -- BP improved w/ UF. Will monitor (3) CHF (congestive heart failure): (4) TIA (transient ischemic attack): -- Neurology and Vascular Surgery notes reviewed Subjective No acute events overnight. Tolerated HD well yesterday. Seen and evaluated with his at the bedside this morning. Denies pain. TDC removed. Breathing comfortably. Review of Systems Review of Systems: All systems reviewed & are unremarkable except as noted in HPI & below Physical Exam Constitutional: well developed; no acute distress Eyes: no scleral abnormality and no corneal abnormality ENMT: Mouth: no oral mucosal abnormality and oral mucous membranes not dry Neck: normal visual inspection and trachea midline Respiratory: normal respiratory effort Auscultation: lungs clear to auscult ation bilaterally Cardiovascular: Rate/Rhythm: regular rate Heart Sounds: normal S1 and normal S2 Extremities: no edema Musculoskeletal: Extremities: no cyanosis and no clubbing Skin: normal turgor; no lesions Neurologic: Motor/Sensory: no tremor and no asterixis Psychiatric: Orientation: alert and oriented x 3 Results & Data Vital Signs (Past 12 Hours) Vital Signs Temp Pulse Pulse Resp BP Pulse Ox 07/13/19 07:24 36.8 C 61 18 136/67 92 07/13/19 07:00 60 07/13/19 04:38 36.8 C 63 18 144/66 H 90 07/12/19 23:44 60 07/12/19 23:29 36.5 C 60 18 138/62 91 Laboratory Results Laboratory Results - last 24 hr 07/12/19 07/12/19 07/12/19 11:55 16:32 18:40 PT INR Sodium Potassium Chloride Carbon Dioxide Anion Gap BUN Creatinine Est Cr Clr Drug Dosing Est GFR ( Amer) Est GFR (Non-Af Amer) BUN/Creatinine Ratio Glucose POC Glucose 105 H 127 H 120 H Calcium Blood Type Antibody Screen 07/12/19 07/13/19 07/13/19 20:00 06:13 06:13 PT 16.8 H INR 1.7 H Sodium Potassium Chloride Carbon Dioxide Anion Gap BUN Creatinine Est Cr Clr Drug Dosing Est GFR ( Amer) Est GFR (Non-Af Amer) BUN/Creatinine Ratio Glucose POC Glucose 105 H Calcium Blood Type O Negative Antibody Screen NEGATIVE 07/13/19 07/13/19 07/13/19 06:13 07:03 07:38 PT INR Sodium 129 L Potassium 4.0 Chloride 96 L Carbon Dioxide 24 Anion Gap 9.0 BUN 22 H Creatinine 4.79 H* D Est Cr Clr Drug Dosing 18.0 Est GFR ( Amer) 13.1 Est GFR (Non-Af Amer) 11.3 BUN/Creatinine Ratio 4.6 L Glucose 103 H POC Glucose 122 H 138 H Calcium 8.5 Blood Type Antibody Screen PG Care Time/CCT Total # of Minutes Spent Total Time Spent with Patient: Total time spent is greater than 50% in coor dination of care (as documented) at patient's floor/unit and/or counseling patient: Coding Level of Care Code 07194 Subseq Hosp Care Lvl 3 Diagnoses ESRD (end stage renal disease) on dialysis N18.6; Z99.2 Hypertension I10 CHF (congestive heart failure) I50.9 TIA (transient ischemic attack) G45.9
[2019-07-13] MEDS ORDERED: PHENYLEPHRINE HCL 10 MG/ML VIAL ONE ×2 (10:35→14:24)
[2019-07-13] MEDS ORDERED: GLYCOPYRROLATE 0.2 MG/ML VIAL ONE (10:35)
[2019-07-13] MEDS ORDERED: ONDANSETRON INJ 2 MG/ML 2 ML VIAL ONE (10:35)
[2019-07-13] MEDS ORDERED: DEXAMETHASONE SOD INJ 4 MG/ML VIAL ONE (10:35)
[2019-07-13] MEDS ORDERED: NEOSTIGMINE METHYLSULFATE 5 MG/5 ML SYR ONE (10:35)
[2019-07-13] MEDS ORDERED: fentaNYL citrate 100 MCG/2 ML VIAL ONE (10:35)
[2019-07-13] MEDS ORDERED: PROPOFOL IV EMULSION 10 MG/ML 20 ML VIAL IV ONE (10:35)
[2019-07-13] MEDS ORDERED: ePHEDrine sulfate 50 MG/ML SYR ONE (10:35)
[2019-07-13] MEDS ORDERED: HEPARIN SOD (PORCINE) 1000 UNIT/ML 10 ML VIAL ONE (10:35)
[2019-07-13] MEDS ORDERED: ROCURONIUM BROMIDE 10 MG/ML 5 ML VIAL ONE ×4 (10:35→15:27)
[2019-07-13] MEDS ORDERED: LABETALOL HCL IV 5 MG/ML 20ML IV ONE (10:35)
[2019-07-13] MEDS ORDERED: LARYING-O-JET KIT (LTA) ONE (10:35)
[2019-07-13] MEDS ORDERED: LIDOCAINE HCL 2% 2 ML VIAL/AMP(20MG/ML) INFIL ONE (10:35)
[2019-07-13] MEDS ORDERED: MIDAZOLAM HCL 1 MG/ML 2ML VIAL ONE (10:36)
--- NOTE | 2019-07-13 11:10 | Anesthesiology Consultation ---
Date of Service July 13, 2019 Assessment & Plan (1) Encounter for pre-operative examination: Chart Review Chart Review: Acceptable Risk for Surgery (patient is very high risk but needs surgery) and Patient NOT seen in Pre Admission Testing Consults Requested none History Surgery Operation Date: 07/12/19 14:40 Proposed Procedures p Perm Catheter Removal - Damien Jennings MD Operation Date: 07/13/19 11:55 Proposed Procedures p Right Carotid Endarterectomy; - Damien Jennings MD s Right Femoral Perm Catheter Insertion - Damien Jennings MD Height/Weight Height: 5 ft 8 in Weight: 121.8 kg Allergies Allergy/AdvReac Type Severity Reaction Status Date / Time promethazine Allergy Unknown UNCONTROLLED Verified 07/09/19 09:55 MUSCLE MOVEMENTS codeine AdvReac Unknown "trips me Verified 07/09/19 09:55 out" Medications Home Medications Medication Instructions Recorded Confirmed Last Taken allopurinol 300 mg PO QAM 02/05/18 07/09/19 07/08/19 aspirin [Aspir-81] 81 mg PO QA 02/05/18 07/09/19 07/08/19 atorvastatin 80 mg PO 02/05/18 07/09/19 07/08/19 loratadine [Claritin] 10 mg PO QA 02/05/18 07/09/19 07/08/19 melatonin 10 mg PO 02/05/18 07/09/19 07/08/19 nitroglycerin 0.3 mg SUBLINGUAL DIRECTED PRN 02/05/18 07/09/19 02/12/19 2 tablets pantoprazole 40 mg PO PENDING SALE TO [facility] 02/05/18 07/09/19 07/08/19 PreserVision AREDS-2 1 tab PO PENDING SALE TO [facility] 02/16/18 07/09/19 07/08/19 cholecalciferol (vitamin D3) 2,000 unit PO QAM 02/16/18 07/09/19 07/08/19 [Vitamin D3] cyanocobalamin (vitamin B-12) 1,000 mcg PO QAM 02/16/18 07/09/19 07/08/19 [Vitamin B-12] trazodone 150 mg PO 02/16/18 07/09/19 07/08/19 hydralazine 25 mg PO TID 05/15/18 07/09/19 07/08/19 thiamine HCl (vitamin B1) 100 mg 100 mg PO QAM tab 12/22/18 07/09/19 07/08/19 tablet albuterol sulfate 2 puff INHALATION Q4H PRN 02/12/19 07/09/19 Unknown budesonide-formoterol 2 puff INHALATION BID 02/12/19 07/09/19 07/08/19 fluticasone propionate 1 spray INTRANASAL DAILY PRN 02/12/19 07/09/19 Unknown isosorbide mononitrate 30 mg PO QAM 02/12/19 07/09/19 07/08/19 docusate sodium 100 mg PO UD PRN 02/13/19 07/09/19 Unknown tiotropium bromide 1 cap INHALATION QAM 02/13/19 07/09/19 07/08/19 glipizide 10 mg PO QAM 04/22/19 07/09/19 07/08/19 warfarin 2.5 mg PO SUMOWETH@1600 04/22/19 07/09/19 07/08/19 16:00 clonazepam [Klonopin] 0.5 mg PO DAILY PRN 05/03/19 07/09/19 05/10/19 21:00 hydroxyzine HCl 10 mg PO HS 05/04/19 07/09/19 07/08/19 ascorbic acid (vitamin C) 1,000 mg PO QAM 07/09/19 07/09/19 07/08/19 sevelamer carbonate 800 mg PO TIDM 07/09/19 07/09/19 07/08/19 umeclidinium 1 inh INHALATION QA 07/09/19 07/09/19 07/08/19 venlafaxine 75 mg PO QAM 07/09/19 07/09/19 07/08/19 warfarin 5 mg PO TUSA@1600 07/09/19 07/09/19 07/06/19 16:00 Active Medications Generic Name Dose Route Start Last Admin Trade Name Freq PRN Reason Stop Dose Admin Acetaminophen 650 mg 07/09/19 11:47 07/09/19 21:05 Tylenol PO 08/08/19 11:46 650 mg Q4H PRN Administration Pain or Fever Allopurinol 300 mg 07/09/19 11:47 07/12/19 08:29 Zyloprim PO 08/08/19 11:46 300 mg QAM BONIFACIO Administration Ascorbic Acid 1,000 mg 07/10/19 09:00 07/12/19 08:30 Vitamin C PO 08/09/19 08:59 1,000 mg QAM BONIFACIO Administration Aspirin 81 mg 07/09/19 11:47 07/12/19 08:39 Ecotrin Ectab PO 08/08/19 11:46 81 mg QAM BONIFACIO Administration Atorvastatin Calcium 80 mg 07/09/19 21:00 07/12/19 19:53 Lipitor PO 08/08/19 20:59 80 mg HS BONIFACIO Administration Clonazepam 0.5 mg 07/09/19 11:47 07/10/19 20:33 Klonopin PO 08/08/19 11:46 0.5 mg DAILY PRN Administration Anxiety Cyanocobalamin 1,000 mcg 07/10/19 09:00 07/12/19 08:28 Vitamin B-12 PO 08/09/19 08:59 1,000 mcg QAM BONIFACIO Administration Docusate Sodium 100 mg 07/09/19 11:47 07/11/19 10:04 Colace PO 08/08/19 11:46 100 mg DAILY PRN Administration Constipation Fluticasone/Vilanterol 1 puffs 07/10/19 09:00 07/13/19 09:10 Breo Ellipta 100/25 Mcg Inh INH 08/09/19 08:59 1 puffs DAILY BONIFACIO Administration Hydralazine HCl 25 mg 07/09/19 14:00 07/12/19 19:52 Apresoline PO 08/08/19 13:59 25 mg TID BONIFACIO Administration Hydroxyzine HCl 10 mg 07/09/19 21:00 07/12/19 19:53 Vistaril PO 08/08/19 20:59 10 mg HS BONIFACIO Administration Insulin Aspart 0 units 07/09/19 11:47 07/13/19 07:52 Novolog Flexpen SC 08/08/19 11:46 Not Given ACHS BONIFACIO Isosorbide Mononitrate 30 mg 07/10/19 09:00 07/12/19 08:31 Imdur Extended Rel PO 08/09/19 08:59 Not Given QAM BONIFACIO Loratadine 10 mg 07/10/19 09:00 07/12/19 08:30 Claritin PO 08/09/19 08:59 10 mg QAM BONIFACIO Administration Magnesium Hydroxide 30 ml 07/09/19 11:47 07/11/19 10:04 Milk Of Magnesia PO 08/08/19 11:46 30 ml Q12H PRN Administration Constipation Multivitamins/Minerals 1 tab 07/10/19 09:00 07/12/19 08:31 Multivitamin W/ Minerals Tab PO 08/09/19 08:59 1 tab QAM BONIFACIO Administration Ondansetron HCl 4 mg 07/09/19 11:47 07/12/19 15:49 Zofran IV 08/08/19 11:46 4 mg Q6H PRN Administration Nausea Pantoprazole Sodium 40 mg 07/09/19 11:47 07/12/19 08:29 Protonix PO 08/08/19 11:46 40 mg QAM BONIFACIO Administration Sevelamer HCl 800 mg 07/09/19 12:00 07/13/19 07:52 Renagel PO 08/08/19 11:59 Not Given TIDM BONIFACIO Thiamine HCl 100 mg 07/10/19 09:00 07/12/19 08:29 Vitamin B-1 PO 08/09/19 08:59 100 mg QAM BONIFACIO Administration Trazodone HCl 150 mg 07/09/19 21:00 07/12/19 19:52 Desyrel PO 08/08/19 20:59 150 mg HS BONIFACIO Administration Umeclidinium [place] 1 puffs 07/10/19 09:00 07/13/19 09:09 Incruse Ellipta INH 08/09/19 08:59 1 puffs QAM BONIFACIO Administration Venlafaxine HCl 75 mg 07/09/19 11:47 07/12/19 08:33 Effexor Extended Release PO 08/08/19 11:46 75 mg QAM BONIFACIO Administration Vitamin B Complex/Folic Acid 1 cap 07/10/19 09:00 07/12/19 08:32 Nephrocaps PO 08/09/19 08:59 1 cap QAM BONIFACIO Administration Vitamin D 2,000 units 07/10/19 09:00 07/12/19 08:31 Vitamin D3 PO 08/09/19 08:59 2,000 units QAM BONIFACIO Administration Warfarin Sodium 3.75 mg 07/10/19 16:00 07/10/19 19:45 Coumadin PO 03/09/20 15:59 3.75 mg TUSA@1600 BONIFACIO Administration NPO Date Last Intake of Fluids: 07/12/19 Time Last Intake of Fluids: 23:45 Date Last Intake of Solids: 07/12/19 Time Last Intake of Solids: 19:00 Past Medical History Medical History Anxiety (Chronic) Atrial fibrillation (Chronic) DX 2006 - NO HX CARDIOVERSION Cancer (Resolved) HX OF BLADDER HX OF PROSTATE Cardiac pacemaker in situ (Resolved) Carotid stenosis, bilateral Chronic back pain (Chronic) Chronic kidney disease (Chronic) ESRD Chronic obstructive pulmonary disease (Chronic) on 2 L continuous O2, 3L HS with BiPAP (not using BiPAP currently due to mask issues) Coronary arteriosclerosis (Chronic) S/P single stent 2013, denies MT. Depression (Chronic) Diabetes mellitus, type 2 (Chronic) Dialysis patient MON, WED AND FRI (RIGHT SHOULDER AREA CURRENT ACCESS) ESRD (end stage renal disease) on dialysis GERD (gastroesophageal reflux disease) (Chronic) Gout continue allopurinol for prophylaxis Hiatal hernia (Chronic) History of CVA (cerebrovascular accident) 11/2017 CVA. Per pt's pt had TIA 11/2018 (possibly CVA?). Residual left sided weakness History of kidney stones HTN (hypertension), benign (Resolved) Hyperlipidemia (Chronic) Hypertension Osteoarthritis (Chronic) Pacemaker (Chronic) 2011 IMPLANTED FOR A-FIB Peripheral neuropathy (Chronic) Post traumatic stress disorder (Chronic) Presence of urostomy Sleep apnea (Chronic) BIPAP Stroke (Resolved) CT SCAN NOVEMBER 2017 SHOWED EVIDENCE OF AN OLD STROKE ? EXACT DATE NOVEMBER 2017 SLURRED SPEECH/LEFT FOOT WEAKNESS CURRENTLY STILL HAS WEAKNESS IN LEFT SIDE TIA (transient ischemic attack) Transient ischemic attack (TIA) (Resolved) HX "MINI STROKES" Past Family History Family History Other Family history non-contributory Past Surgical History Surgical History History of biopsy of bladder (Resolved) History of cardiac cath (Resolved) STENT PLACED 2011 History of cataract surgery (Resolved) RT/LEFT History of cholecystectomy (Resolved) History of colonoscopy History of heart artery stent (Resolved) History of laminectomy (Resolved) LUMBAR History of prostatectomy (Resolved) History of tooth extraction (Resolved) History of urologic surgery FOR KIDNEY STONE History of urostomy BLADDER REMOVED D/T CANCER STOMA REVISED Pericardial disease (Resolved) PERICARDIAL WINDOW/MICROSCOPIC ([facility]) 2014 Social History Smoking Status: Former smoker tobacco type: cigarettes Smoking End Date: 2000 Hx Alcohol Use: No Hx Substance Use: No substance use type: does not use Physical Exam Vital Signs Last Vital Signs Temp 36.7 C 07/13/19 10:54 Pulse 63 07/13/19 10:54 Resp 16 07/13/19 10:54 BP 157/76 H 07/13/19 10:54 Pulse Ox 100 07/13/19 10:54 Testing Laboratory Results 07/12/19 07:25 07/13/19 06:13 PT 16.8 Seconds (9.0-12.0) H 07/13/19 06:13 INR 1.7 (0.9-1.1) H 07/13/19 06:13 APTT 41.1 Seconds (21.0-31.0) H 07/09/19 09:40 Hemoglobin A1c 7.4 % (4.5-5.6) H 07/10/19 08:32 Blood Type O Negative 07/13/19 06:13 Antibody Screen NEGATIVE 07/13/19 06:13 07/13/19 07/13/19 07:38 07:03 POC Glucose 138 H 122 H Electrocardiogram Date: 05/04/19 Ventricular-paced rhythm (HR 74) with occasional Premature ventricular complexes Abnormal ECG When compared with ECG of 15-FEB-2019 11:12, Premature ventricular complexes are now Present Vent. rate has increased BY 14 BPM Confirmed by Lionel Blount ([id number]) on 05/04/2019 6:11:28 PM Chest X-Ray Date: 07/09/19 XR chest 1V portable HISTORY: Shortness of breath. stroke, diaysis, poss chf COMPARISON: Chest 05/04/2019. FINDINGS: No pneumothorax. No pleural effusions. The heart remains enlarged. There is left-sided dual-chamber pacemaker. Right jugular catheter terminates at the SVC. A few bibasilar linear densities favor subsegmental atelectasis. The right upper lobe nodular density seen on the prior chest CTA is not well visualized by this modality. There is mild central pulmonary vascular congestion without overt edema. This has progressed. IMPRESSION: Interval progression of the mild central pulmonary vascular congestion without overt edema. Stable cardiomegaly. Echocardiogram Date: 02/16/19 LV systolic function is normal. No RWMA Mild LVH EF 55-60% Mild MR, Mild TR Other Testing Head CT 07/09/2019: FINDINGS: No acute intracranial hemorrhage, midline shift or mass effect is present. Ventricular system is normal. The basilar cisterns are patent. There are no extra-axial collections. Old infarct within left parietal lobe is noted. There is an old lacunar infarct within left caudate head. White matter hypodensity suggests small vessel disease. The appearance of the brain is unchanged. There are no findings to suggest acute dural sinus thrombosis or acute territorial infarct. There are no significant caliber abnormality. There is minimal sinus mucosal thickening. IMPRESSION: 1. No acute intracranial findings. 2. No change in appearance of the brain. Old left parietal lobe infarct. Pacemaker Remote Transmission 11/13/18 [employer] Mode: VVIR 97% RV paced Battery: 7 yrs remaining Note: Evaluation done, Carelink monitor given, teaching done, paired in clinic, he will return in 1 yr.
[2019-07-13] MEDS ORDERED: CEFAZOLIN 250 MG/ML 1 GM VIAL ONE (12:32)
[2019-07-13] MEDS ORDERED: GELATIN SPONGE SZ 100 ONE (12:32)
[2019-07-13] MEDS ORDERED: LIDOCAINE HCL 1% 20 ML VIAL ONE ×2 (12:32→12:34)
[2019-07-13] MEDS ORDERED: HEPARIN (PORCINE) 1000 UNIT/ML 10 ML (CATH LAB USE ONLY) ONE (12:32)
[2019-07-13] MEDS ORDERED: THROMBIN FOR SOLN 20000 UNIT KIT ONE (12:33)
[2019-07-13] MEDS ORDERED: EPINEPHrine INJ 1 MG/ML AMP ONE (12:34)
[2019-07-13] MEDS ORDERED: BUPIVACAINE 0.5 % 5 MG/1 ML MPF 30ML VIAL ONE (12:34)
[2019-07-13] MEDS ORDERED: HEPARIN SOD (PORCINE) 5,000 UNITS/ML VIAL ONE (13:26)
--- NOTE | 2019-07-13 15:36 | Post Operative Brief Note ---
Immediate Post Op Note v1 Date of Surgery July 13, 2019 Pre & Post Diagnosis Operation Date: 07/12/19 14:40 Pre-Op Diagnosis: status post perm cath removal Post-Op Diagnosis: status post perm cath removal Operation Date: 07/13/19 11:55 Pre-Op Diagnosis: 1. Right Carotid artery stenosis 2. End stage renal disease Post-Op Diagnosis: Right carotid stenosis with transient ischemic attack I identified the patient and participated in the time-out.: Yes Procedure Operation Date: 07/12/19 14:40 Actual Procedures p Perm Catheter Removal(Not Applicable) - Damien Jennings MD Operation Date: 07/13/19 11:55 Actual Procedures p Right Carotid Endarterectomy(Right) - Damien Jennings MD s Right Femoral Perm Catheter Insertion(Right), Ultrasound localization of the right common femoral vein, and fluoro for positioning - Damien Jennings MD Surgeon Damien Jennings MD Supervisor Contact Lens MD Starr L.Minarchick,PAC Estimated Blood Loss 100 Findings Consistent with Post-Op Diagnosis Anesthesia Type General Complications none Disposition Accompanied Patient To Recovery: No Disposition: Recovery Room
[2019-07-13] MEDS ORDERED: PROTAMINE SULFATE 10 MG/ML 5 ML VIAL ONE (15:52)
[2019-07-13] MEDS: ISOSORBIDE MONO EXTENDED REL 60 MG TABCR PO SCH (16:21)
[2019-07-13] MEDS: ASPIRIN 81 MG ECTAB PO SCH (16:21)
[2019-07-13] MEDS: LORATADINE 10 MG TAB PO SCH (16:21)
[2019-07-13] MEDS: CEROVITE ADV FORMULA TAB PO SCH (16:21)
[2019-07-13] MEDS: VENLAFAXINE HCL XR 75 MG CAPXR PO SCH (16:21)
[2019-07-13] MEDS: ASCORBIC ACID 500 MG TAB PO SCH (16:24)
[2019-07-13] MEDS: CYANOCOBALAMIN 500 MCG TABLET (VITAMIN B-12) PO SCH (16:24)
[2019-07-13] MEDS: NEPHROCAPS PO SCH (16:24)
[2019-07-13] MEDS: CHOLECALCIFEROL 1,000 UNITS 25 MCG TAB PO SCH (16:24)
[2019-07-13] MEDS: allopurinoL 300 MG TAB PO SCH (16:24)
[2019-07-13] MEDS: THIAMINE HCL 100 MG TAB PO SCH (16:24)
[2019-07-13] MEDS: PANTOprazole 40 MG TAB PO SCH (16:24)
--- NOTE | 2019-07-13 17:03 | Operative Report ---
Post Operative Report Pre & Post Diagnosis Operation Date: 07/12/19 14:40 Pre-Op Diagnosis: status post perm cath removal Post-Op Diagnosis: status post perm cath removal Operation Date: 07/13/19 11:55 Pre-Op Diagnosis: 1. Right Carotid artery stenosis 2. End stage renal disease requiring hemodialysis I identified the patient and participated in the time-out.: Yes Procedure Operation Date: 07/12/19 14:40 Actual Procedures p Perm Catheter Removal(Not Applicable) - Damien Jennings MD Operation Date: 07/13/19 11:55 Actual Procedures p Right Carotid Endarterectomy(Right) - Damien Jennings MD s Right Femoral Perm Catheter Insertion(Right) - Damien Jennings MD Surgeon Dr. Jennings Bag Worker MD Gabby Clements,PAC Estimated Blood Loss 100 Findings Consistent with Post-Op Diagnosis Specimens Carotid plaque Anesthesia Type General Complications none Disposition Accompanied Patient To Recovery: No Disposition: Recovery Room Indications 69 year old male with symptomatic right carotid disease, ESRD, and bilateral severe carotid stenosis Description of Procedure The patient was taken to the operating room and placed in supine position. After general anesthesia was accomplished the right side of the neck was prepped and draped in a sterile manner. A longitudinal neck incision was then made coursing along the medial border of the sternocleidomastoid muscle. The incision was taken down through the platysmal layer. The facial vein was identified, ligated, and divided. The common carotid artery was then seen. It was dissected free down to the omohyoid muscle. The dissection was carried upward until the external carotid artery and superior thyroid artery was seen. The superior thyroid artery was slung with a 2-0 silk suture. The external carotid was slung with a red rubber vessel loop. Next the dissection was carried up along the internal carotid artery. This was carried upward to beyond the area of narrowing. The hypoglossal nerve was seen and preserved. The patient was heparinized. After adequate heparinization was accomplished, the internal, external, and common carotid arteries were clamped. A longitudinal arteriotomy was started on the common carotid artery and extended upward along the internal carotid artery to a point beyond the area of narrowing. There was hemmorhagic plaque of the internal carotid artery origin causing approximately 85-90% narrowing. A Doppler shunt was then placed in the internal, followed by the common carotid artery and held in place with Raza clamps. There was good back bleeding seen from the internal carotid artery. The endarterectomy was then started in the appropriate plane on the common carotid artery. This was carried upward and the external carotid was everted and endarterectomized. The endarterectomy was then carried up along the internal carotid artery till a nice feathering breakoff point was accomplished beyond the end of the plaque. The endarterectomy was then carried down further on the common carotid artery. At end of the arteriotomy, the plaque was then transected. Under loop magnification, all loose debris and flaps were removed. There is no distal flap seen at the end of the endarterectomy site. The arteriotomy then closed using a bovine pericardial patch and a running 6-0 prolene suture. This was done in the usual vascular fashion. Prior to completing the closure, the doppler shunt was removed and the internal and common carotid arteries were reclamped. Backbleeding and forward bleeding was allowed to occur. The flow surface was irrigated with heparinized saline. The final few sutures were then placed and securely tied. Clamps were then removed off the external and common carotid arteries. The clamp was then removed the internal carotid artery. Good distal flow was seen. Adequate hemostasis was seen of the patch. The wound was inspected and adequate hemostasis was obtained. The wound was irrigated with antibiotic solution. It was then closed with a running 3-0 Vicryl suture for the platysmal layer and a 4-0 subcuticular Vicryl suture for the skin edges. Dermabond was used for dressing. Attention was then turned to the insertion of a right femoral tunneled dialysis catheter. After the patient was prepped and draped in a sterile fashion, ultrasound was then used to locate the right femoral vein. The vein compressed easily, had no filing defects, and was patent. The vein was then punctured under direct ultrasound imaging. A guidewire was then passed centrally under fluoroscopic imaging. A stab wound was then made in the anterior thigh and the permcath was passed from the stab wound on the thighl to the puncture site in the groin. The puncture site was then dilated till the 14Fr peel away sheath was inserted. The permcath was then inserted through the sheath to a central position in the distal inferior vena cava. The peel away sheath was then removed. The catheter was then sutured in place using nylon sutures. The puncture was then closed using a 4-0 Vicryl subcuticular suture. Dermabond was used for a dressing on the puncture site. Both ports aspirated and flushed easily and were then packed with heparin. A sterile dressing was applied to the catheter. The patient left the angio suite in good condition and tolerated the procedure well. Joseline Freeman Pac assisted due to lack of resident availability and was necessary for prepping, draping, retraction, wound closure defects, subQ and skin closure and was necessary for the case. I attest to the content of the Intraoperative Record and any orders documented therein. Any exceptions are noted below.
--- NOTE | 2019-07-13 17:36 | Anesthesiology Progress Note ---
Date of Service July 13, 2019 Anesthesia Post Procedure Vital Signs Vital Signs: Temp Pulse Pulse Pulse Resp BP Pulse Ox 07/13/19 17:10 36.0 C L 60 16 124/49 L 99 07/13/19 17:04 36.0 C L 60 16 127/41 L 100 07/13/19 10:54 36.7 C 63 16 157/76 H 100 07/13/19 07:24 36.8 C 61 18 136/67 92 07/13/19 07:00 60 07/13/19 04:38 36.8 C 63 18 144/66 H 90 07/12/19 23:44 60 07/12/19 23:29 36.5 C 60 18 138/62 91 07/12/19 22:03 63 07/12/19 20:02 36.7 C 60 127/53 L 93 07/12/19 19:15 36.4 C L 60 18 135/53 L 94 07/12/19 19:05 36.3 C L 69 20 141/65 H 97 07/12/19 18:17 36.7 C 62 18 147/65 H 93 Transfer of Care Handoff Completed per policy Notes Mental Status: alert / awake / arousable and participated in evaluation Patient Amnestic to Procedure: Yes Nausea / Vomiting: adequately controlled Pain: adequately controlled Airway Patency, RR, SpO2: stable & adequate BP & HR: stable & adequate Hydration State: stable & adequate Anesthetic Complications: no major complications apparent and Pt Satisfied with anesthetic care Notes: will start phenylephrine ggt to keep MAPs around 70 per surgeon. otherwise patient doing well, tongue midline, moves extremities x4.
--- NOTE | 2019-07-13 18:23 | Critical Care Consultation ---
Date of Consultation July 13, 2019 Assessment & Plan (1) Admitted to intensive care unit: Reason Critically Ill: Mr. Pierce is a 69 year old male with a past medical history of ESRD on HD, hypertension, COPD, paroxsymal atrial fibrillation w/pacemaker placement, Type 2 DM, Hx of CVA, PTSD/depression/anxiety and gout who was transferred to the ICU for monitoring after a right carotid endarterectomy and right femoral perm cath insertion. Neuro: TIA -neurological symptoms of left sided weakness and dysarthria resolved -neurology following -s/p right carotid endarterectomy given this was felt to be a potential cause of his TIA -admitted to ICU for post-endarterectomy monitoring -aiming for MAP >70, phenylephrine ordered if needed. Patient currently maintaining MAP of >70 without pressors -continue secondary prevention medications including aspirin, and statin PTSD/Depression/Anxiety -continue home meds Cardiac: PAF -warfarin on hold given recent procedure -check INR with AM labs -s/p pacemaker placement Hypertension -continue home meds Respiratory: History of COPD -continue home inhalers -normally wears O2 ATC, 2L during the day and 3L at night (meant to wear BiPAP at night but he prefers not to) -continue supplemental O2 -lung nodule program as outpatient GI: DM2, renal diet ordered Continue home PPI RENAL/LYTES: ESRD -receives dialysis M/W/F -permcath placed today due to difficulty accessing fistula -nephrology following : No problems noted ENDO: Diabetes Mellitus Type 2 -ISS ordered whilst hospitalized -HbA1c 7.4% TSH 4.1 HEME: H&H stable ID: No infectious process identified Received Ancef for surgical prophylaxis LINES/IV ACCESS: Femoral permcath, arterial line, PIV CODE STATUS: FULL DVT PROPHYLAXIS: Warfarin held due to procedure. INR 1.7 this AM. Recheck tomorrow. SCDs ordered Thank you for allowing us to participate in the care of this patient. Please refer to my attending physician's documentation for any further recommendations. (2) Morbid obesity with BMI of 40.0-44.9, adult: (3) Lung nodule: (4) Carotid stenosis, bilateral: (5) TIA (transient ischemic attack): (6) Hypertension: (7) ESRD (end stage renal disease) on dialysis: (8) PTSD (post-traumatic stress disorder): (9) Expressive aphasia: (10) Weakness: (11) Stroke-like symptoms: (12) Chronic diastolic HF (heart failure): (13) Anemia: (14) Constipation: (15) Metabolic encephalopathy: (16) Altered mental status: (17) Coronary artery disease: (18) Pacemaker: (19) HTN (hypertension): (20) COPD (chronic obstructive pulmonary disease): (21) Type 2 diabetes mellitus without complication: (22) CAD (coronary artery disease), [place] coronary artery: (23) Essential hypertension: Supervising Physician Co-Signing Physician Notes Dr. Molina was resident physician during care of patient. I separately evaluated patient for rodriguez portions of the history and the exam. I was present during the critical portion of medical decision making, and I discussed the case with the resident. I generally agree with the findings and plan. Patient requiring vasoactive's immediately postop given significant peripheral vascular disease in the setting of end-stage renal disease. Close monitoring. Patient had permacath from right chest removed and placed in right groin given nature of his procedures. History of Present Illness Reason for Consultation: Post CEA Monitoring Requesting Physician: Dr. Jennings Attending Physician: Tray Aparicio History of Present Illness Mr. Pierce is a 69 year old male with a past medical history of ESRD on HD, hypertension, COPD, paroxsymal atrial fibrillation w/pacemaker placement, Type 2 DM, Hx of CVA, PTSD/depression/anxiety and gout who was transferred to the ICU for monitoring after a right carotid endarterectomy and right femoral perm cath insertion. Mr. Pierce was admitted to [facility] on 07/09/2019 for a TIA w/left sided weakness and dysarthria. His CTA showed bilateral carotid stenosis, and there was concern that his right sided ICA stenosis contributed to his TIA. MRI was unable to be obtained due to his pacemaker not being compatible with MRI. With regards to his history of ESRD, he receives HD on //. He has a RUE fistula in place, however this was becoming difficult to access, and therefore he had a femoral perm cath placed today. He was seen in the ICU following his procedure. He was still drowsy after the anesthetic, but able to answer questions appropriately. He reported a mild headache, but denied any other complaints. Allergies Allergy/AdvReac Type Severity Reaction Status Date / Time promethazine Allergy Unknown UNCONTROLLED Verified 07/09/19 09:55 MUSCLE MOVEMENTS codeine AdvReac Unknown "trips me Verified 07/09/19 09:55 out" Home Medications Home Medications Medication Instructions Recorded Confirmed Type allopurinol 300 mg PO QAM 02/05/18 07/09/19 History aspirin [Aspir-81] 81 mg PO QAM 02/05/18 07/09/19 History atorvastatin 80 mg PO HS 02/05/18 07/09/19 History loratadine [Claritin] 10 mg PO QAM 02/05/18 07/09/19 History melatonin 10 mg PO HS 02/05/18 07/09/19 History nitroglycerin 0.3 mg SUBLINGUAL DIRECTED PRN 02/05/18 07/09/19 History pantoprazole 40 mg PO QAM 02/05/18 07/09/19 History PreserVision AREDS-2 1 tab PO QAM 02/16/18 07/09/19 History cholecalciferol (vitamin D3) 2,000 unit PO QAM 02/16/18 07/09/19 History [Vitamin D3] cyanocobalamin (vitamin B-12) 1,000 mcg PO QAM 02/16/18 07/09/19 History [Vitamin B-12] trazodone 150 mg PO HS 02/16/18 07/09/19 History hydralazine 25 mg PO TID 05/15/18 07/09/19 History thiamine HCl (vitamin B1) 100 mg 100 mg PO QAM tab 12/22/18 07/09/19 History tablet albuterol sulfate 2 puff INHALATION Q4H PRN 02/12/19 07/09/19 History budesonide-formoterol 2 puff INHALATION BID 02/12/19 07/09/19 History fluticasone propionate 1 spray INTRANASAL DAILY PRN 02/12/19 07/09/19 History isosorbide mononitrate 30 mg PO QAM 02/12/19 07/09/19 History docusate sodium 100 mg PO UD PRN 02/13/19 07/09/19 History tiotropium bromide 1 cap INHALATION QAM 02/13/19 07/09/19 History glipizide 10 mg PO QAM 04/22/19 07/09/19 History warfarin 2.5 mg PO SUMOWETH@1600 04/22/19 07/09/19 History clonazepam [Klonopin] 0.5 mg PO DAILY PRN 05/03/19 07/09/19 History hydroxyzine HCl 10 mg PO HS 05/04/19 07/09/19 History ascorbic acid (vitamin C) 1,000 mg PO QAM 07/09/19 07/09/19 History sevelamer carbonate 800 mg PO TIDM 07/09/19 07/09/19 History umeclidinium 1 inh INHALATION QAM 07/09/19 07/09/19 History venlafaxine 75 mg PO QAM 07/09/19 07/09/19 History warfarin 5 mg PO TUSA@1600 07/09/19 07/09/19 History Patient History Medical History Anxiety (Chronic) Atrial fibrillation (Chronic) DX 2006 - NO HX CARDIOVERSION Cancer (Resolved) HX OF BLADDER HX OF PROSTATE Cardiac pacemaker in situ (Resolved) Carotid stenosis, bilateral Chronic back pain (Chronic) Chronic kidney disease (Chronic) ESRD Chronic obstructive pulmonary disease (Chronic) on 2 L continuous O2, 3L HS with BiPAP (not using BiPAP currently due to mask issues) Coronary arteriosclerosis (Chronic) S/P single stent 2013, denies [place]. Depression (Chronic) Diabetes mellitus, type 2 (Chronic) Dialysis patient MON, WED AND FRI (RIGHT SHOULDER AREA CURRENT ACCESS) ESRD (end stage renal disease) on dialysis GERD (gastroesophageal reflux disease) (Chronic) Gout continue allopurinol for prophylaxis Hiatal hernia (Chronic) History of CVA (cerebrovascular accident) 11/2017 CVA. Per pt's pt had TIA 11/2018 (possibly CVA?). Residual left sided weakness History of kidney stones HTN (hypertension), benign (Resolved) Hyperlipidemia (Chronic) Hypertension Osteoarthritis (Chronic) Pacemaker (Chronic) 2011 IMPLANTED FOR A-FIB Peripheral neuropathy (Chronic) Post traumatic stress disorder (Chronic) Presence of urostomy Sleep apnea (Chronic) BIPAP Stroke (Resolved) CT SCAN NOVEMBER 2017 SHOWED EVIDENCE OF AN OLD STROKE ? EXACT DATE NOVEMBER 2017 SLURRED SPEECH/LEFT FOOT WEAKNESS CURRENTLY STILL HAS WEAKNESS IN LEFT SIDE TIA (transient ischemic attack) Transient ischemic attack (TIA) (Resolved) HX "MINI STROKES" Surgical History History of biopsy of bladder (Resolved) History of cardiac cath (Resolved) STENT PLACED 2011 History of cataract surgery (Resolved) RT/LEFT History of cholecystectomy (Resolved) History of colonoscopy History of heart artery stent (Resolved) History of laminectomy (Resolved) LUMBAR History of prostatectomy (Resolved) History of tooth extraction (Resolved) History of urologic surgery FOR KIDNEY STONE History of urostomy BLADDER REMOVED D/T CANCER STOMA REVISED Pericardial disease (Resolved) PERICARDIAL WINDOW/MICROSCOPIC ([facility]) 2013 Family History Other Family history non-contributory Social History Preferred Language: [place] Communication Ability: Effective 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 Required: No Beliefs That Will Affect Care: None marital status: Current Living Situation: Spouse Current Living Situation Comment: pt and his live with their dtr current occupational status: retired Feels Safe at Home: Yes Smoking Status: Former smoker Tobacco Type: cigarettes ; Second Hand Exposure: No ; Hx Alcohol Use: No Hx Substance Use: No Review of Systems Constitutional: + fatigue; no fever and no chills Respiratory: no cough and no dyspnea Cardiovascular: no chest pain Gastrointestinal: no abdominal pain, no nausea and no vomiting Neurologic: + headache(s) Physical Exam Constitutional: WD/WN, vitals as above + morbidly obese fatigued, frequently falling asleep Eyes: PERRL, conjunctivae normal, anicteric sclerae Respiratory: normal respiratory effort, lungs clear to auscultation Cardiovascular: Rate/Rhythm: regular rate and regular rhythm Heart Sounds: no murmur Gastrointestinal (Abdomen): Percussion/Palpation: abdomen soft; abdomen nontender Skin: no rashes, warm and dry Neurologic: PERRL, EOMI, accommodation nl, no face palsy, no dysarthria b/l equal wrapper 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 operator strength 5/5 power in LE Psychiatric: A+Ox3, euthymic affect Results & Data Vital Signs (Past 12 Hours) Vital Signs Temp Pulse Pulse Pulse Resp BP Pulse Ox 07/13/19 17:40 37.1 C 60 15 129/53 L 100 07/13/19 17:30 37.1 C 60 21 113/58 L 97 07/13/19 17:20 36.0 C L 61 12 116/49 L 100 07/13/19 17:10 36.0 C L 60 16 124/49 L 99 07/13/19 17:04 36.0 C L 60 16 127/41 L 100 07/13/19 15:50 37.1 C 60 16 136/48 L 100 07/13/19 10:54 36.7 C 63 16 157/76 H 100 07/13/19 07:24 36.8 C 61 18 136/67 92 07/13/19 07:00 60 Resident Activity Tracking Resident Involvement: Resident Care Provided Care Provided: Adult Hospital Medicine (1) COPD (chronic obstructive pulmonary disease) COPD type: unspecified COPD Qualified Code(s): J44.9 - Chronic obstructive pulmonary disease, unspecified
[2019-07-13] MEDS ORDERED: SODIUM CHLORIDE 0.9% 1000ML 1,000 ML IV SCH (18:30)
[2019-07-13] MEDS: PHENYLEPHRINE HCL 20 MG in DEXTROSE 5% 500 ML IV SCH (20:58)
[2019-07-13] MEDS: CEFAZOLIN 2000MG 2,000 MG/15 ML SYR IV SCH (21:03)
[2019-07-13] MEDS: hydrOXYzine HCl 10 MG TAB PO SCH (21:04)
[2019-07-13] MEDS: ATORVASTATIN 40 MG TAB PO SCH (21:04)
[2019-07-13] MEDS: TRAZODONE HCL 50 MG TAB PO SCH (21:04)
--- NOTE | 2019-07-13 21:26 | Hospitalist Progress Note ---
Date of Service July 13, 2019 Assessment & Plan (1) Carotid stenosis, bilateral: s/p right-sided CEA today by Dr Jennings. also has left-sided ICA stenosis - to be addressed in the future. defer management of this issue to Dr Jennings/vascular team. (2) Stroke-like symptoms: TIA - had left sided weakness and dysarthria at presentation. Symptoms resolved. Unable to obtain MRI due to MRI incompatible pacemaker. CTA neck with b/l carotid stenosis. Concern that right-sided ICA stenosis contributed to TIA. Hence - right-sided CEA today by Dr Jennings. Remains on aspirin for secondary prevention. Lipid panel unable to be completed due to TG at 536; remains on high-dose statin but triglyceride lowering agent should be considered (niacin, fish oil, etc). Pharmacy suggested prescription fish oil at d/c - I agree as long as cost is not a factor. PT/OT/ST evals appreciated. Neuro exam post-CEA - ?mild dysarthria, but arms/legs were symmetric strength; slightly slurred speech may have been due to recent anesthesia/sedation. Follow carefully. (3) ESRD (end stage renal disease) on dialysis: Schedule - M/W/F permcath right chest removed, POD #1 placement of right femoral permcath today in the event his RUE fistula does not function well post-operatively (4) Acute hyperkalemia: resolved s/p addition HD this admission (5) Hypertension: continue home meds largely controlled (6) Gout: continue home meds no flares this admission (7) Thiamine deficiency: continue thiamine 100mg daily (8) Depression with anxiety: continue home meds no issues (9) COPD (chronic obstructive pulmonary disease): continue home meds no flare at this time (10) Paroxysmal atrial fibrillation: warfarin on hold INR in am paced on tele this admission (11) Type 2 diabetes mellitus without complication: hold oral agent A1c 7.4 SSI PRN while in ICU the ICU glycemic protocol will be in place (12) Pacemaker: paced on monitor stable (13) History of stroke: with concurrent TIA see above (14) PTSD (post-traumatic stress disorder): continue home meds (15) Lung nodule: seen on CT, RUL - 2.5cm in size Recs for f/u CT in 1 month pulmonary nodule program can follow (16) Morbid obesity with BMI of 40.0-44.9, adult: BMI 40-41 (17) Hyponatremia: in setting of ESRD mildly low but has been stable (18) DVT prophylaxis: Coumadin -- but on hold for CEA updated at bedside Admission and Anticipated Discharge Date Admission Date: July 09, 2019 Subjective saw patient in the ICU post-CEA was at bedside he was not able to offer much in way of history due to pain and still waking up from the procedure he moaned much of the visit due to pain he was able to follow commands however Review of Systems Respiratory: no dyspnea Cardiovascular: no chest pain Gastrointestinal: no abdominal pain Neurologic: no localized weakness Physical Exam Constitutional: + acute distress (due to pain) and + morbidly obese ENMT: external ear and nose normal, oropharynx normal Neck: incision right neck; ecchymoses and swelling right neck Respiratory: normal respiratory effort, lungs clear to auscultation Auscultation: + diminished lung sounds (bases) Cardiovascular: Rate/Rhythm: regular rate and regular rhythm Heart Sounds: normal S1 and normal S2; no murmur Vessels: posterior tibial pulses present and dorsalis pedis pulses present; no JVD Extremities: no edema Gastrointestinal (Abdomen): normal bowel sounds, soft, nontender, no hepatosplenomegaly Skin: right femoral permcath in place Neurologic: moves all extremities (strength 5/5 x 4 extremities ); no focal motor deficits Speech / Cognition: + abnormal speech (slightly slurry) facial muscles seem symmetric Results & Data ([facility]) Vital Signs (Past 12 Hours) Vital Signs Temp Pulse Pulse Pulse Resp BP BP 07/13/19 20:00 37 C 60 16 137/58 L 07/13/19 19:00 60 18 117/56 L 07/13/19 18:38 60 16 144/54 H 07/13/19 18:00 36.9 C 60 19 07/13/19 17:58 61 22 147/54 H 07/13/19 17:40 37.1 C 60 15 129/53 L 07/13/19 17:30 37.1 C 60 21 113/58 L 07/13/19 17:20 36.0 C L 61 12 116/49 L 07/13/19 17:10 36.0 C L 60 16 124/49 L 07/13/19 17:04 36.0 C L 60 16 127/41 L 07/13/19 15:50 37.1 C 60 16 136/48 L 07/13/19 10:54 36.7 C 63 16 157/76 H Pulse Ox 07/13/19 20:00 100 07/13/19 19:00 97 07/13/19 18:38 97 07/13/19 18:00 97 07/13/19 17:58 98 07/13/19 17:40 100 07/13/19 17:30 97 07/13/19 17:20 100 07/13/19 17:10 99 07/13/19 17:04 100 07/13/19 15:50 100 07/13/19 10:54 100 Laboratory Results Laboratory Results - last 24 hr 07/12/19 07/13/19 07/13/19 20:00 06:13 06:13 PT 16.8 H INR 1.7 H Sodium Potassium Chloride Carbon Dioxide Anion Gap BUN Creatinine Est Cr Clr Drug Dosing Est GFR ( Amer) Est GFR (Non-Af Amer) BUN/Creatinine Ratio Glucose POC Glucose 105 H Calcium Nasal Screen MRSA (PCR) Blood Type O Negative Antibody Screen NEGATIVE 07/13/19 07/13/19 07/13/19 06:13 07:03 07:38 PT INR Sodium 129 L Potassium 4.0 Chloride 96 L Carbon Dioxide 24 Anion Gap 9.0 BUN 22 H Creatinine 4.79 H* D Est Cr Clr Drug Dosing 18.0 Est GFR ( Amer) 13.1 Est GFR (Non-Af Amer) 11.3 BUN/Creatinine Ratio 4.6 L Glucose 103 H POC Glucose 122 H 138 H Calcium 8.5 Nasal Screen MRSA (PCR) Blood Type Antibody Screen 07/13/19 07/13/19 18:06 21:03 PT INR Sodium Potassium Chloride Carbon Dioxide Anion Gap BUN Creatinine Est Cr Clr Drug Dosing Est GFR ( Amer) Est GFR (Non-Af Amer) BUN/Creatinine Ratio Glucose POC Glucose 109 H Calcium Nasal Screen MRSA (PCR) Negative Blood Type Antibody Screen PG Care Time/CCT Total # of Minutes Spent Total Time Spent with Patient: Total time spent is greater than 50% in coordination of care (as documented) at patient's floor/unit and/or counseling patient: Coding Level of Care Code 30737 Subseq Hosp Care Lvl 1 Diagnoses Carotid stenosis, bilateral I65.23 Stroke-like symptoms R29.90 ESRD (end stage renal disease) on dialysis N18.6; Z99.2 Acute hyperkalemia E87.5 Hypertension I10 Gout M10.9 Thiamine deficiency E51.9 Depression with anxiety F41.8 COPD (chronic obstructive pulmonary disease) J44.9 COPD type: unspecified COPD Paroxysmal atrial fibrillation I48.0 Type 2 diabetes mellitus without complication E11.9 Pacemaker Z95.0 History of stroke Z86.73 PTSD (post-traumatic stress disorder) F43.10 Lung nodule R91.1 Morbid obesity with BMI of 40.0-44.9, adult E66.01; Z68.41 Hyponatremia E87.1 DVT prophylaxis Z29.9 (1) COPD (chronic obstructive pulmonary disease) COPD type: unspecified COPD Qualified Code(s): J44.9 - Chronic obstructive pulmonary disease, unspecified
[2019-07-13] MEDS: OXYCODONE/ACETAMINOPHEN 5mg/325mg TAB PO PRN (22:55)
[2019-07-14] MEDS: PHENYLEPHRINE HCL 20 MG in DEXTROSE 5% 500 ML IV SCH ×5 (00:03→18:27)
[2019-07-14] MEDS: OXYCODONE/ACETAMINOPHEN 5mg/325mg TAB PO PRN ×2 (04:02→08:13)
[2019-07-14] MEDS: clonazePAM 0.5 MG TAB PO PRN (04:02)
[2019-07-14 04:40] LABS: Hematocrit (blood only) 28.9 % (42-52); Mean Corpuscular Hemoglobin 31.9 pg (25-34); Mean Corpuscular Hgb Conc 34.6 g/dL (32-36); Mean Corpuscular Volume 92.3 fL (80-100); Mean Platelet Volume 11.3 fL (7.4-10.4); Platelet Count 137 K/uL (130-400); RDW Coefficient of Variation 15.9 % (11.5-14.5); RDW Standard Deviation 52.4 fL (36.4-46.3); Red Blood Count 3.13 M/uL (4.7-6.1); White Blood Count 6.11 K/uL (4.8-10.8)
[2019-07-14 04:48] LABS: INR 1.6 (0.9-1.1); Prothrombin Time 15.8 Seconds (9.0-12.0)
[2019-07-14 05:12] LABS: BUN Creatinine Ratio 4.5 (10-20); Calcium 8.2 mg/dl (8.5-10.1); Creatinine Clr Calc Pharmacy 12.7 ml/min; Est GFR (African American) 8.7; Est GFR (Non-African American) 7.5; Phosphorus 6.2 mg/dl (2.5-4.9); Potassium 4.6 mmol/L (3.5-5.1)
[2019-07-14] MEDS: CEFAZOLIN 2000MG 2,000 MG/15 ML SYR IV SCH (05:25)
[2019-07-14] MEDS ORDERED: SODIUM CHLORIDE 0.9% 1000ML 1,000 ML IV PRN ×2 (07:00→10:00)
--- NOTE | 2019-07-14 07:14 | Critical Care Progress Note ---
Date of Service July 14, 2019 Assessment & Plan (1) Admitted to intensive care unit: Reason Critically Ill: Mr. Pierce is a 69 year old male with a past medical history of ESRD on HD, hypertension, COPD, paroxsymal atrial fibrillation w/pacemaker placement, Type 2 DM, Hx of CVA, PTSD/depression/anxiety and gout who was transferred to the ICU for monitoring after a right carotid endarterectomy and right femoral perm cath insertion. Neuro: TIA -new onset neurological symptoms of left sided weakness and dysarthria resolved - patient has some mild left sided weakness from prior CVA -neurology following -s/p right carotid endarterectomy on 07/13/2019 given this was felt to be a potential cause of his TIA -patient has remained stable throughout post-operative monitoring - stable for downgrade out of ICU -continue secondary prevention medications including aspirin, and statin PTSD/Depression/Anxiety -continue home meds Cardiac: PAF -warfarin was on hold given recent procedure -INR 1.6 this AM - can restart warfarin -s/p pacemaker placement Hypertension -continue home meds Respiratory: History of COPD -continue home inhalers -normally wears O2 ATC, 2L during the day and 3L at night (meant to wear BiPAP at night but he prefers not to) -continue supplemental O2 -lung nodule program as outpatient GI: DM2, renal diet ordered Continue home PPI RENAL/LYTES: ESRD -receives dialysis M/W/F - scheduled for today. Will receive venofer with dialysis -permcath placed on 07/13/2019 due to difficulty accessing fistula -nephrology following : s/p urostomy placement due to hx of bladder ca ENDO: Diabetes Mellitus Type 2 -ISS ordered whilst hospitalized -HbA1c 7.4% TSH 4.1 HEME: H&H stable ID: No infectious process identified LINES/IV ACCESS: Femoral permcath, PIV, d/c A line CODE STATUS: FULL DVT PROPHYLAXIS: Warfarin held due to procedure. INR 1.6 this AM. Warfarin restarted, will trend INR. SCDs ordered Thank you for allowing us to participate in the care of this patient. Please refer to my attending physician's documentation for any further recommendations. (2) Morbid obesity with BMI of 40.0-44.9, adult: (3) Lung nodule: (4) Carotid stenosis, bilateral: (5) TIA (transient ischemic attack): (6) Hypertension: (7) ESRD (end stage renal disease) on dialysis: (8) PTSD (post-traumatic stress disorder): (9) Expressive aphasia: (10) Weakness: (11) Stroke-like symptoms: (12) Chronic diastolic HF (heart failure): (13) Anemia: (14) Constipation: (15) Metabolic encephalopathy: (16) Altered mental status: (17) Coronary artery disease: (18) Pacemaker: (19) COPD (chronic obstructive pulmonary disease): (20) Type 2 diabetes mellitus without complication: (21) CAD (coronary artery disease), [place] coronary artery: (22) Essential hypertension: Admission and Anticipated Discharge Date Admission Date: July 09, 2019 Supervising Physician Co-Signing Physician Notes Dr. Molina was resident physician during care of patient. I separately evaluated patient for rodriguez portions of the history and the exam. I was present during the critical portion of medical decision making, and I discussed the case with the resident. I generally agree with the findings and plan. Patient was discussed on multidisciplinary rounds. Off vasoactive's largely asymptomatic, no headache. Tolerated dialysis well, stable for downgrade out of ICU. Subjective Mr. Pierce reports he feels improved this morning. He is eager to have breakfast. He states his headache has improved, but he generally feels fatigued. Review of Systems Constitutional: + fatigue; no fever and no chills Respiratory: no cough and no dyspnea Cardiovascular: no chest pain Gastrointestinal: no abdominal pain, no nausea, no vomiting and no change in bowel habits Physical Exam Constitutional: WD/WN, vitals as above + morbidly obese Eyes: PERRL, conjunctivae normal, anicteric sclerae Respiratory: normal respiratory effort, lungs clear to auscultation Cardiovascular: Rate/Rhythm: regular rate and regular rhythm Heart Sounds: no murmur Gastrointestinal (Abdomen): Percussion/Palpation: abdomen soft; abdomen nontender Neurologic: moves all extremities and awake Results & Data ([facility]) Vital Signs (Past 12 Hours) Vital Signs Temp Pulse Pulse Pulse Resp BP BP 07/14/19 06:00 60 148/56 H 07/14/19 05:00 60 18 156/61 H 07/14/19 04:00 60 14 144/63 H 07/14/19 03:00 60 16 151/53 H 07/14/19 02:00 60 17 157/56 H 07/14/19 01:00 60 16 160/55 H 07/14/19 00:00 60 19 143/61 H 07/13/19 23:00 60 16 150/37 H 07/13/19 22:00 36.9 C 60 16 150/54 H 07/13/19 21:00 60 60 18 148/77 H 07/13/19 20:00 37 C 60 16 137/58 L BP Pulse Ox 07/14/19 06:00 97 07/14/19 05:00 97 07/14/19 04:00 99 07/14/19 03:00 99 07/14/19 02:00 100 07/14/19 01:00 100 07/14/19 00:00 99 07/13/19 23:00 100 07/13/19 22:00 99 07/13/19 21:00 129/34 L 100 07/13/19 20:00 100 Resident Activity Tracking Resident Involvement: Resident Care Provided Care Provided: Adult Hospital Medicine (1) COPD (chronic obstructive pulmonary disease) COPD type: unspecified COPD Qualified Code(s): J44.9 - Chronic obstructive pulmonary disease, unspecified
[2019-07-14] MEDS: NEPHROCAPS PO SCH (08:06)
[2019-07-14] MEDS: LORATADINE 10 MG TAB PO SCH (08:06)
[2019-07-14] MEDS: THIAMINE HCL 100 MG TAB PO SCH (08:06)
[2019-07-14] MEDS: PANTOprazole 40 MG TAB PO SCH (08:06)
[2019-07-14] MEDS: CHOLECALCIFEROL 1,000 UNITS 25 MCG TAB PO SCH (08:06)
[2019-07-14] MEDS: ISOSORBIDE MONO EXTENDED REL 60 MG TABCR PO SCH (08:06)
[2019-07-14] MEDS: ASCORBIC ACID 500 MG TAB PO SCH (08:06)
[2019-07-14] MEDS: CYANOCOBALAMIN 500 MCG TABLET (VITAMIN B-12) PO SCH (08:06)
[2019-07-14] MEDS: allopurinoL 300 MG TAB PO SCH (08:06)
[2019-07-14] MEDS: ASPIRIN 81 MG ECTAB PO SCH (08:07)
[2019-07-14] MEDS: SEVELAMER HCL 800 MG TABLET PO SCH ×3 (08:07→18:25)
[2019-07-14] MEDS: FLUTICASONE/VILANTEROL 100/25MCG 14 PUFFS/INHALER INH SCH (08:07)
[2019-07-14] MEDS: VENLAFAXINE HCL XR 75 MG CAPXR PO SCH (08:07)
[2019-07-14] MEDS: CEROVITE ADV FORMULA TAB PO SCH (08:07)
[2019-07-14] MEDS: UMECLIDINIUM BROMIDE 62.5MCG/BLISTER 7 PUFFS/INHALER INH SCH (08:08)
[2019-07-14] MEDS: INSULIN ASPART 100 UNITS/ML 3 ML PEN SC SCH ×4 (08:11→21:37)
--- NOTE | 2019-07-14 10:09 | Nephrology Progress Note ---
Date of Service July 14, 2019 Assessment & Plan (1) ESRD (end stage renal disease) on dialysis: -- HD today: orders entered into EMR and discussed with dialysis nurse -- 1-3 L UF goal, 2 K bath -- AVF use with 17 g as tolerated vs. femoral TDC -- Venofer 100 mg to be provide with HD today for anemia (2) Hypertension: -- BP acceptable (3) CHF (congestive heart failure): (4) TIA (transient ischemic attack): -- POD #1 s/p R carotid endarterectomy Subjective No acute events overnight. Rick tolerated surgery well. Pain control is adequate. He is breathing comfortably. No fevers or chills. Review of Systems Review of Systems: All systems reviewed & are unremarkable except as noted in HPI & below Physical Exam Constitutional: well developed; no acute distress Eyes: no scleral abnormality and no corneal abnormality ENMT: Mouth: no oral mucosal abnormality and oral mucous membranes not dry Neck: normal visual inspection and trachea midline Respiratory: normal respiratory effort Auscultation: lungs clear to auscultation bilaterally Cardiovascular: Rate/Rhythm: regular rate Heart Sounds: normal S1 and normal S2 Extremities: + AV fistula; no edema R femoral TDC Musculoskeletal: Extremities: no cyanosis and no clubbing Skin: normal turgor; no lesions Neurologic: Motor/Sensory: no tremor and no asterixis Psychiatric: Orientation: alert and oriented x 3 Results & Data Vital Signs (Past 12 Hours) Vital Signs Temp Pulse Resp BP Pulse Ox 07/14/19 09:00 60 15 94 07/14/19 08:58 61 16 157/51 H 96 07/14/19 08:00 36.7 C 61 15 96 07/14/19 07:58 62 14 141/54 H 97 07/14/19 07:00 60 17 93 07/14/19 06:00 60 148/56 H 97 07/14/19 05:00 60 18 156/61 H 97 07/14/19 04:00 60 14 144/63 H 99 07/14/19 03:00 60 16 151/53 H 99 07/14/19 02:00 60 17 157/56 H 100 07/14/19 01:00 60 16 160/55 H 100 07/14/19 00:00 60 19 143/61 H 99 07/13/19 23:00 60 16 150/37 H 100 Laboratory Results Laboratory Results - last 24 hr 07/13/19 07/13/19 07/14/19 18:06 21:03 04:13 WBC RBC Hgb Hct MCV MCH MCHC RDW Std Deviation RDW Coeff of [place]acia Plt Count MPV PT 15.8 H INR 1.6 H Sodium Potassium Chloride Carbon Dioxide Anion Gap BUN Creatinine Est Cr Clr Drug Dosing Est GFR ( Amer) Est GFR (Non-Af Amer) BUN/Creatinine Ratio Glucose POC Glucose 109 H Calcium Phosphorus Magnesium Nasal Screen MRSA (PCR) Negative 07/14/19 07/14/19 04:13 04:13 WBC 6.11 RBC 3.13 L Hgb 10.0 L Hct 28.9 L MCV 92.3 MCH 31.9 MCHC 34.6 RDW Std Deviation 52.4 H RDW Coeff of [place]acia 15.9 H Plt Count 137 MPV 11.3 H PT INR Sodium 130 L Potassium 4.6 Chloride 97 L Carbon Dioxide 21 Anion Gap 12.0 H BUN 31 H Creatinine 6.75 H* D Est Cr Clr Drug Dosing 12.7 Est GFR ( Amer) 8.7 Est GFR (Non-Af Amer) 7.5 BUN/Creatinine Ratio 4.5 L Glucose 103 H POC Glucose Calcium 8.2 L Phosphorus 6.2 H Magnesium 2.0 Nasal Screen MRSA (PCR) PG Care Time/CCT Total # of Minutes Spent Total Time Spent with Patient: Total time spent is greater than 50% in coordination of care (as documented) at patient's floor/unit and/or counseling patient: Coding Level of Care Code 51866 Subseq Hosp Care Lvl 3 Diagnoses ESRD (end stage renal disease) on dialysis N18.6; Z99.2 Hypertension I10 CHF (congestive heart failure) I50.9 TIA (transient ischemic attack) G45.9
[2019-07-14] MEDS ORDERED: IRON SUCROSE 100 MG in SYRINGE 0 ML IV SCH (10:15)
[2019-07-14] MEDS: ONDANSETRON INJ 2 MG/ML 2 ML VIAL IV PRN ×2 (11:18→18:24)
--- NOTE | 2019-07-14 13:16 | Surgery Progress Note ---
Date of Service July 14, 2019 Assessment & Plan (1) Status post carotid endarterectomy: Patient is is day 1 after his right carotid enterectomy. He is doing well. We will see him in the office in 2 weeks after discharge. From vascular standpoint he could leave the hospital whenever medicine sees fit. Subjective Patient is awake alert. He has no difficulty swallowing food he does have some irritation in his throat which is causing presented to be slightly sore. He denies any new focal deficits. Physical Exam Physical Exam: On exam he is awake alert oriented x3. Incision is dry and clean. There is minimal neck swelling the right side. His neurologic exam is back to baseline. He has slight weakness of his left hand only. His tongue is midline. Constitutional: WD/WN, vitals as above Results & Data Vital Signs (Past 12 Hours) Vital Signs Temp Pulse Resp BP Pulse Ox 07/14/19 10:58 36.5 C 61 16 107/34 L 92 07/14/19 10:00 61 12 94 07/14/19 09:58 61 18 115/71 94 07/14/19 09:00 60 15 94 07/14/19 08:58 61 16 157/51 H 96 07/14/19 08:00 36.7 C 61 15 96 07/14/19 07:58 62 14 141/54 H 97 07/14/19 07:00 60 17 93 07/14/19 06:00 60 148/56 H 97 07/14/19 05:00 60 18 156/61 H 97 07/14/19 04:00 60 14 144/63 H 99 07/14/19 03:00 60 16 151/53 H 99 07/14/19 02:00 60 17 157/56 H 100
--- NOTE | 2019-07-14 18:22 | Billing Data ---
Date of Service July 13, 2019 Coding Level of Care Code 05209 Inpt Consult Level 5
--- NOTE | 2019-07-14 18:24 | Billing Data ---
Date of Service July 14, 2019 Coding Level of Care Code 70257 Subseq Hosp Care Lvl 3
[2019-07-14] MEDS: WARFARIN SOD 2.5 MG TAB PO SCH (19:54)
[2019-07-14] MEDS: ATORVASTATIN 40 MG TAB PO SCH (19:55)
--- NOTE | 2019-07-14 21:33 | Hospitalist Progress Note ---
Date of Service July 14, 2019 Assessment & Plan (1) Carotid stenosis, bilateral: POD #1 - s/p right-sided CEA by Dr Jennings. also has left-sided ICA stenosis - to be addressed in the future. defer management of this issue to Dr Jennings/vascular team. stable post-operatively today. left radial art line has been d/c. H/H stable post-op. (2) Stroke-like symptoms: TIA - present on admission. Had left sided weakness and dysarthria at presentation. Symptoms resolved. Unable to obtain MRI due to MRI incompatible pacemaker. CTA neck with b/l carotid stenosis. Concern that right-sided ICA stenosis contributed to TIA. Thus underwent right-sided CEA by Dr Jennings as above. Remains on aspirin for secondary prevention. Lipid panel unable to be completed due to TG at 536; remains on high-dose statin but triglyceride lowering agent should be considered (niacin, fish oil, etc). Pharmacy suggested prescription fish oil at d/c - I agree as long as cost is not a factor. PT/OT/ST evals appreciated. Neuro exam today - again 5/5 strength x 4 exts; speech slurry. feels it is due to being very tired. If this persists low threshold for repeating a CT head. (3) ESRD (end stage renal disease) on dialysis: Schedule - M/W/F permcath right chest removed, POD #2 new permcath placed in right femoral vein, POD #1 volume status appropriate today (4) Hypertension: continue home meds controlled (5) Gout: continue home meds no flares this admission (6) Thiamine deficiency: continue thiamine 100mg daily (7) Depression with anxiety: continue home meds no issues (8) COPD (chronic obstructive pulmonary disease): continue home meds no flare at this time (9) Paroxysmal atrial fibrillation: warfarin resumed today INR in am once again paced on tele (10) Type 2 diabetes mellitus without complication: holding oral agent A1c 7.4 SSI PRN control adequate at this time (11) Pacemaker: paced on monitor stable (12) History of stroke: with concurrent TIA see above (13) PTSD (post-traumatic stress disorder): continue home meds (14) Lung nodule: seen on CT, RUL - 2.5cm in size Recs for f/u CT in 1 month pulmonary nodule program can follow (15) Morbid obesity with BMI of 40.0-44.9, adult: BMI 40-41 (16) Hyponatremia: in setting of ESRD mildly low but cont to be stable (17) DVT prophylaxis: Coumadin - resume today updated at bedside if tolerates HD can move from ICU to PCU Admission and Anticipated Discharge Date Admission Date: July 09, 2019 Subjective saw pt in ICU just before HD was about to begin c/o fatigue- has not slept well in several days states speech has largely been ok ate fair this am no focal weakness of arms/legs mild discomfort of right neck from CEA yesterday was cracking jokes throughout the visit Review of Systems Respiratory: no dyspnea Cardiovascular: no chest pain, no orthopnea and no paroxysmal nocturnal dyspnea Gastrointestinal: no abdominal pain no flatus since his surgery Physical Exam Constitutional: + morbidly obese; no acute distress speech slightly slurry but he is sleepy/tired; no facial droop ENMT: external ear and nose normal, oropharynx normal Neck: swelling/ecchymoses right neck; incision clean Respiratory: normal respiratory effort, lungs clear to auscultation Auscultation: + diminished lung sounds (bases) Cardiovascular: Rate/Rhythm: regular rate and regular rhythm Heart Sounds: normal S1 and normal S2; no murmur Vessels: posterior tibial pulses present and dorsalis pedis pulses present; no JVD Extremities: no edema Gastrointestinal (Abdomen): normal bowel sounds, soft, nontender, no hepatosplenomegaly Neurologic: moves all extremities (strength 5/5 x 4 extremities ); no focal motor deficits Speech / Cognition: + abnormal speech (slightly slurry) Psychiatric: Orientation: alert and oriented x 3 Results & Data ([facility]) Vital Signs (Past 12 Hours) Vital Signs Temp Pulse Pulse Resp BP BP Pulse Ox 07/14/19 18:42 60 15 135/49 L 96 07/14/19 18:37 60 16 125/46 L 95 07/14/19 18:30 60 17 96 07/14/19 18:20 36.6 C 60 60 147/63 H 147/63 H 07/14/19 18:00 60 125/64 07/14/19 17:40 60 158/55 H 07/14/19 17:20 60 153/53 H 07/14/19 17:12 60 15 153/53 H 93 07/14/19 17:00 60 160/56 H 02/12/20 16:57 60 16 160/56 H 98 07/14/19 16:42 60 12 143/60 H 99 07/14/19 16:40 60 132/65 07/14/19 16:20 60 136/53 L 07/14/19 16:00 60 128/61 07/14/19 15:40 60 138/60 07/14/19 15:20 60 152/54 H 07/14/19 15:00 60 134/62 07/14/19 14:40 60 149/58 H 07/14/19 14:27 61 16 149/58 H 98 07/14/19 14:23 36.6 C 97 H 97 H 148/57 H 07/14/19 14:00 60 14 97 07/14/19 13:58 61 14 148/57 H 97 07/14/19 13:48 65 17 118/50 L 93 07/14/19 12:58 60 16 130/54 L 95 07/14/19 12:00 60 12 97 07/14/19 11:59 60 12 157/64 H 96 07/14/19 10:58 36.5 C 61 16 107/34 L 92 07/14/19 10:00 61 12 94 07/14/19 09:58 61 18 115/71 94 Laboratory Results Laboratory Results - last 24 hr 07/14/19 07/14/19 07/14/19 04:13 04:13 04:13 WBC 6.11 RBC 3.13 L Hgb 10.0 L Hct 28.9 L MCV 92.3 MCH 31.9 MCHC 34.6 RDW Std Deviation 52.4 H RDW Coeff of Dacia 15.9 H Plt Count 137 MPV 11.3 H PT 15.8 H INR 1.6 H Sodium 130 L Potassium 4.6 Chloride 97 L Carbon Dioxide 21 Anion Gap 12.0 H BUN 31 H Creatinine 6.75 H* D Est Cr Clr Drug Dosing 12.7 Est GFR ( Amer) 8.7 Est GFR (Non-Af Amer) 7.5 BUN/Creatinine Ratio 4.5 L Glucose 103 H POC Glucose Calcium 8.2 L Phosphorus 6.2 H Magnesium 2.0 07/14/19 07/14/19 07/14/19 10:53 18:24 20:14 WBC RBC Hgb Hct MCV MCH MCHC RDW Std Deviation RDW Coeff of [place]acia Plt Count MPV PT INR Sodium Potassium Chloride Carbon Dioxide Anion Gap BUN Creatinine Est Cr Clr Drug Dosing Est GFR ( Amer) Est GFR (Non-Af Amer) BUN/Creatinine Ratio Glucose POC Glucose 130 H 185 H 179 H Calcium Phosphorus Magnesium PG Care Time/CCT Total # of Minutes Spent Total Time Spent with Patient: Total time spent is greater than 50% in coordination of care (as documented) at patient's floor/unit and/or counseling patient: Coding Level of Care Code 55712 Subseq Hosp Care Lvl 2 Diagnoses Carotid stenosis, bilateral I65.23 Stroke-like symptoms R29.90 ESRD (end stage renal disease) on dialysis N18.6; Z99.2 Hypertension I10 Gout M10.9 Thiamine deficiency E51.9 Depression with anxiety F41.8 COPD (chronic obstructive pulmonary disease) J44.9 COPD type: unspecified COPD Paroxysmal atrial fibrillation I48.0 Type 2 diabetes mellitus without complication E11.9 Pacemaker Z95.0 History of stroke Z86.73 PTSD (post-traumatic stress disorder) F43.10 Lung nodule R91.1 Morbid obesity with BMI of 40.0-44.9, adult E66.01; Z68.41 Hyponatremia E87.1 DVT prophylaxis Z29.9 (1) COPD (chronic obstructive pulmonary disease) COPD type: unspecified COPD Qualified Code(s): J44.9 - Chronic obstructive pulmonary disease, unspecified
[2019-07-14] MEDS: hydrOXYzine HCl 10 MG TAB PO SCH (21:37)
[2019-07-14] MEDS: TRAZODONE HCL 50 MG TAB PO SCH (21:37)
[2019-07-15 06:14] LABS: Appearance Urine Turbid (Clear); Bilirubin Urine Negative (Negative); Blood Urine 2+ (Negative); Color Urine Yellow; Glucose Urine UA Negative (Negative); Ketones Urine Trace (Negative); Leukocyte Esterase Urine 2+ (Negative); Nitrite Urine Negative (Negative); Protein Urine 2+ (Negative); Specific Gravity Urine >= 1.030 (1.000-1.030); Urobilinogen Urine Negative (Negative)
[2019-07-15 06:23] LABS: Hematocrit (blood only) 29.4 % (42-52); Hemoglobin 10.1 g/dL (14.0-18.0); Mean Corpuscular Hgb Conc 34.4 g/dL (32-36); Mean Platelet Volume 11.5 fL (7.4-10.4); Platelet Count 127 K/uL (130-400); RDW Coefficient of Variation 15.8 % (11.5-14.5); RDW Standard Deviation 52.2 fL (36.4-46.3); Red Blood Count 3.16 M/uL (4.7-6.1); White Blood Count 5.04 K/uL (4.8-10.8)
[2019-07-15 06:30] LABS: Prothrombin Time 19.8 Seconds (9.0-12.0)
[2019-07-15 06:47] LABS: Bacteria Urine 3+ (Negative); WBC Urine >30 /hpf (0-5)
[2019-07-15 07:04] LABS: BUN Creatinine Ratio 3.4 (10-20); Calcium 8.6 mg/dl (8.5-10.1); Creatinine Clr Calc Pharmacy 16.2 ml/min; Est GFR (African American) 11.7; Est GFR (Non-African American) 10.1
[2019-07-15] MEDS: ISOSORBIDE MONO EXTENDED REL 60 MG TABCR PO SCH (08:26)
[2019-07-15] MEDS: CEROVITE ADV FORMULA TAB PO SCH (08:26)
[2019-07-15] MEDS: PANTOprazole 40 MG TAB PO SCH (08:27)
[2019-07-15] MEDS: ASPIRIN 81 MG ECTAB PO SCH (08:27)
[2019-07-15] MEDS: VENLAFAXINE HCL XR 75 MG CAPXR PO SCH (08:27)
[2019-07-15] MEDS: CYANOCOBALAMIN 500 MCG TABLET (VITAMIN B-12) PO SCH (08:27)
[2019-07-15] MEDS: NEPHROCAPS PO SCH (08:27)
[2019-07-15] MEDS: SEVELAMER HCL 800 MG TABLET PO SCH ×3 (08:27→16:54)
[2019-07-15] MEDS: CHOLECALCIFEROL 1,000 UNITS 25 MCG TAB PO SCH (08:27)
[2019-07-15] MEDS: allopurinoL 300 MG TAB PO SCH (08:27)
[2019-07-15] MEDS: THIAMINE HCL 100 MG TAB PO SCH (08:28)
[2019-07-15] MEDS: LORATADINE 10 MG TAB PO SCH (08:28)
[2019-07-15] MEDS: FLUTICASONE/VILANTEROL 100/25MCG 14 PUFFS/INHALER INH SCH (08:29)
[2019-07-15] MEDS: INSULIN ASPART 100 UNITS/ML 3 ML PEN SC SCH ×4 (08:31→21:25)
[2019-07-15] MEDS: UMECLIDINIUM BROMIDE 62.5MCG/BLISTER 7 PUFFS/INHALER INH SCH (08:32)
[2019-07-15] MEDS: ASCORBIC ACID 500 MG TAB PO SCH (08:37)
--- NOTE | 2019-07-15 15:06 | Nephrology Progress Note ---
Date of Service July 15, 2019 Assessment & Plan (1) ESRD (end stage renal disease) on dialysis: -- HD MWF schedule -- BP, volume status, electrolytes are acceptable -- Femoral HD catheter used for treatment yesterday -- AVF use with 17 g as tolerated vs. femoral TDC if unable to access AVF -- Venofer 100 mg provided with HD yesterday for anemia which may have contributed to nausea (2) Hypertension: -- BP acceptable (3) CHF (congestive heart failure): -- Volume status acceptable (4) TIA (transient ischemic attack): -- POD #2 s/p R carotid endarterectomy Subjective No acute events overnight. Rick feels well today. He hopes to be discharged home. Tolerated HD yesterday with some nausea and vomiting at the end of treatment. Treatment stopped 5 minutes early. Net UF 2 L. Review of Systems Review of Systems: All systems reviewed & are unremarkable except as noted in HPI & below Physical Exam Constitutional: well developed; no acute distress Eyes: no scleral abnormality and no corneal abnormality ENMT: Mouth: no oral mucosal abnormality and oral mucous membranes not dry Neck: normal visual inspection and trachea midline surgical incision CDI Respiratory: normal respiratory effort Auscultation: lungs clear to auscultation bilaterally Cardiovascular: Rate/Rhythm: regular rate Heart Sounds: normal S1 and normal S2 Extremities: + AV fistula; no edema Musculoskeletal: Extremities: no cyanosis and no clubbing Skin: normal turgor; no lesions Neurologic: Motor/Sensory: no tremor and no asterixis Psychiatric: Orientation: alert and oriented x 3 Results & Data Vital Signs (Past 12 Hours) Vital Signs Temp Pulse Resp BP Pulse Ox 07/15/19 13:45 60 112/54 L 07/15/19 11:25 36.5 C 60 18 142/62 H 97 07/15/19 07:39 36.8 C 61 20 106/62 95 Laboratory Results Laboratory Results - last 24 hr 07/14/19 07/14/19 07/15/19 18:24 20:14 05:54 WBC RBC Hgb Hct MCV MCH MCHC RDW Std Deviation RDW Coeff of [place]acia Plt Count MPV PT INR Sodium Potassium Chloride Carbon Dioxide Anion Gap BUN Creatinine Est Cr Clr Drug Dosing Est GFR ( Amer) Est GFR (Non-Af Amer) BUN/Creatinine Ratio Glucose POC Glucose 185 H 179 H Calcium Urine Color Yellow Urine Appearance Turbid A Urine pH 5.0 Ur Specific [place] >= 1.030 Urine Protein 2+ H Urine Glucose (UA) Negative Urine Ketones Trace H Urine Blood 2+ H Urine Nitrite Negative Urine Bilirubin Negative Urine Urobilinogen Negative Ur Leukocyte Esterase 2+ H Urine RBC 5-10 H Urine WBC >30 H Ur Epithelial Cells 10-20 H Urine Bacteria 3+ H 07/15/19 07/15/19 07/15/19 06:10 06:10 06:10 WBC 5.04 RBC 3.16 L Hgb 10.1 L Hct 29.4 L MCV 93.0 MCH 32.0 MCHC 34.4 RDW Std Deviation 52.2 H RDW Coeff of Dacia 15.8 H Plt Count 127 L MPV 11.5 H PT 19.8 H INR 2.0 H Sodium 129 L Potassium 4.0 Chloride 97 L Carbon Dioxide 23 Anion Gap 9.0 BUN 18 Creatinine 5.27 H* D Est Cr Clr Drug Dosing 16.2 Est GFR ( Amer) 11.7 Est GFR (Non-Af Amer) 10.1 BUN/Creatinine Ratio 3.4 L Glucose 113 H POC Glucose Calcium 8.6 Urine Color Urine Appearance Urine pH Ur Specific [place] Urine Protein Urine Glucose (UA) Urine Ketones Urine Blood Urine Nitrite Urine Bilirubin Urine Urobilinogen Ur Leukocyte Esterase Urine RBC Urine WBC Ur Epithelial Cells Urine Bacteria 07/15/19 07/15/19 07:37 11:15 WBC RBC Hgb Hct MCV MCH MCHC RDW Std Deviation RDW Coeff of [place] Plt Count MPV PT INR Sodium Potassium Chloride Carbon Dioxide Anion Gap BUN Creatinine Est Cr Clr Drug Dosing Est GFR ( Amer) Est GFR (Non-Af Amer) BUN/Creatinine Ratio Glucose POC Glucose 129 H 135 H Calcium Urine Color Urine Appearance Urine pH Ur Specific [place] Urine Protein Urine Glucose (UA) Urine Ketones Urine Blood Urine Nitrite Urine Bilirubin Urine Urobilinogen Ur Leukocyte Esterase Urine RBC Urine WBC Ur Epithelial Cells Urine Bacteria PG Care Time/CCT Total # of Minutes Spent Total Time Spent with Patient: Total time spent is greater than 50% in coordination of care (as documented) at patient's floor/unit and/or counseling patient: Coding Level of Care Code 12674 Subseq Hosp Care Lvl 3 Diagnoses ESRD (end stage renal disease) on dialysis N18.6; Z99.2 Hypertension I10 CHF (congestive heart failure) I50.9 TIA (transient ischemic attack) G45.9
[2019-07-15] MEDS: WARFARIN SOD 2.5 MG TAB PO SCH (16:52)
[2019-07-15] MEDS: ONDANSETRON INJ 2 MG/ML 2 ML VIAL IV PRN (17:07)
[2019-07-15] MEDS: ATORVASTATIN 40 MG TAB PO SCH (20:54)
[2019-07-15] MEDS: TRAZODONE HCL 50 MG TAB PO SCH (21:14)
[2019-07-15] MEDS: hydrOXYzine HCl 10 MG TAB PO SCH (21:25)
--- NOTE | 2019-07-15 21:52 | Hospitalist Progress Note ---
Date of Service July 15, 2019 Assessment & Plan (1) Carotid stenosis, bilateral: POD #2 - s/p right-sided CEA by Dr Jennings. also has left-sided ICA stenosis - to be addressed in the future. stable post-operatively with stable H/H. will need to see Dr Jennings in 2 weeks post-d/c. (2) Stroke-like symptoms: TIA - present on admission. Had left sided weakness and dysarthria at presentation. Symptoms resolved. Unable to obtain MRI due to MRI incompatible pacemaker. CTA neck with b/l carotid stenosis. Concern that right-sided ICA stenosis contributed to TIA. Thus underwent right-sided CEA by Dr Jennings as above. Remains on aspirin for secondary prevention. Lipid panel unable to be completed due to TG at 536; remains on high-dose statin but triglyceride lowering agent should be considered (niacin, fish oil, etc). Pharmacy suggested prescription fish oil at d/c - I agree as long as cost is not a factor. PT/OT/ST evals appreciated. neuro exam stable today (speech is hoarse but continues to say consistently that this is not unusual for him). good symmetric strength b/l. (3) ESRD (end stage renal disease) on dialysis: Schedule - M/W/F permcath right chest removed, POD 3 new permcath placed in right femoral vein, POD 2 volume status appropriate today HD tomorrow (4) Hypertension: continue home meds controlled (5) Gout: continue home meds no flares this admission (6) Thiamine deficiency: continue thiamine 100mg daily (7) Depression with anxiety: continue home meds no issues (8) COPD (chronic obstructive pulmonary disease): continue home meds no flare at this time (9) Paroxysmal atrial fibrillation: cont warfarin INR in am once again paced on tele (10) Type 2 diabetes mellitus without complication: holding oral agent A1c 7.4 SSI PRN control adequate at this time (11) Pacemaker: paced on monitor stable (12) History of stroke: with concurrent TIA see above (13) PTSD (post-traumatic stress disorder): continue home meds (14) Lung nodule: seen on CT, RUL - 2.5cm in size Recs for f/u CT in 1 month pulmonary nodule program can follow (15) Morbid obesity with BMI of 40.0-44.9, adult: BMI 40-41 (16) Hyponatremia: in setting of ESRD mildly low but cont to be stable BMP in am (17) Vomiting: obtain x-rays of abd - r/o ileus vs impaction vs constipation downgrade diet if this persists (18) DVT prophylaxis: Coumadin updated at bedside this am PT/OT advising rehab but patient ADAMANTLY REFUSES bowel function is rate-limiting step to d/c Admission and Anticipated Discharge Date Admission Date: July 09, 2019 Anticipated date of discharge: 07/17/19 Subjective saw pt twice today first visit this am during rounds - no complaints, feeling good, hoping to go home soon still no flatus or stool however but denied any nausea and reported good appeti te very little activity since his CEA 2nd visit was after dinner he had refused dinner because he had nausea/emesis reported poor appetite this evening Review of Systems Constitutional: no fever and no chills Respiratory: no cough, no dyspnea and no wheezing Cardiovascular: no chest pain Physical Exam Constitutional: + morbidly obese; no acute distress ENMT: external ear and nose normal, oropharynx normal Respiratory: normal respiratory effort, lungs clear to auscultation Auscultation: + diminished lung sounds (bases) Cardiovascular: Rate/Rhythm: regular rate and regular rhythm Heart Sounds: normal S1 and normal S2; no murmur Vessels: posterior tibial pulses present and dorsalis pedis pulses present; no JVD Extremities: no edema Gastrointestinal (Abdomen): normal bowel sounds, soft, nontender, no hepatosplenomegaly Inspection/Auscultation: + abdomen distended (mild) Neurologic: moves all extremities (strength 5/5 x 4 extremities ); no focal motor deficits Speech / Cognition: + abnormal speech (slurry / hoarse - no change from prior exams ) Psychiatric: Orientation: alert and oriented x 3 Results & Data ([facility]) Vital Signs (Past 12 Hours) Vital Signs Temp Pulse Resp BP BP Pulse Ox 07/15/19 18:55 36.8 C 61 16 154/54 H 95 07/15/19 16:12 98 07/15/19 15:18 36.4 C L 60 20 115/60 95 07/15/19 13:45 60 112/54 L 07/15/19 11:25 36.5 C 60 18 142/62 H 97 Laboratory Results Laboratory Results - last 24 hr 07/15/19 07/15/19 07/15/19 05:54 06:10 06:10 WBC 5.04 RBC 3.16 L Hgb 10.1 L Hct 29.4 L MCV 93.0 MCH 32.0 MCHC 34.4 RDW Std Deviation 52.2 H RDW Coeff of Dacia 15.8 H Plt Count 127 L MPV 11.5 H PT 19.8 H INR 2.0 H Sodium Potassium Chloride Carbon Dioxide Anion Gap BUN Creatinine Est Cr Clr Drug Dosing Est GFR ( Amer) Est GFR (Non-Af Amer) BUN/Creatinine Ratio Glucose POC Glucose Calcium Urine Color Yellow Urine Appearance Turbid A Urine pH 5.0 Ur Specific [place] >= 1.030 Urine Protein 2+ H Urine Glucose (UA) Negative Urine Ketones Trace H Urine Blood 2+ H Urine Nitrite Negative Urine Bilirubin Negative Urine Urobilinogen Negative Ur Leukocyte Esterase 2+ H Urine RBC 5-10 H Urine WBC >30 H Ur Epithelial Cells 10-20 H Urine Bacteria 3+ H 07/15/19 07/15/19 07/15/19 06:10 07:37 11:15 WBC RBC Hgb Hct MCV MCH MCHC RDW Std Deviation RDW Coeff of [place]acia Plt Count MPV PT INR Sodium 129 L Potassium 4.0 Chloride 97 L Carbon Dioxide 23 Anion Gap 9.0 BUN 18 Creatinine 5.27 H* D Est Cr Clr Drug Dosing 16.2 Est GFR ( Amer) 11.7 Est GFR (Non-Af Amer) 10.1 BUN/Creatinine Ratio 3.4 L Glucose 113 H POC Glucose 129 H 135 H Calcium 8.6 Urine Color Urine Appearance Urine pH Ur Specific [place] Urine Protein Urine Glucose (UA) Urine Ketones Urine Blood Urine Nitrite Urine Bilirubin Urine Urobilinogen Ur Leukocyte Esterase Urine RBC Urine WBC Ur Epithelial Cells Urine Bacteria 07/15/19 07/15/19 16:28 20:04 WBC RBC Hgb Hct MCV MCH MCHC RDW Std Deviation RDW Coeff of [place] Plt Count MPV PT INR Sodium Potassium Chloride Carbon Dioxide Anion Gap BUN Creatinine Est Cr Clr Drug Dosing Est GFR ( Amer) Est GFR (Non-Af Amer) BUN/Creatinine Ratio Glucose POC Glucose 160 H 211 H Calcium Urine Color Urine Appearance Urine pH Ur Specific [place] Urine Protein Urine Glucose (UA) Urine Ketones Urine Blood Urine Nitrite Urine Bilirubin Urine Urobilinogen Ur Leukocyte Esterase Urine RBC Urine WBC Ur Epithelial Cells Urine Bacteria PG Care Time/CCT Total # of Minutes Spent Total Time Spent with Patient: Total time spent is greater than 50% in coordination of care (as documented) at patient's floor/unit and/or counseling patient: Coding Level of Care Code 90357 Subseq Hosp Care Lvl 3 Diagnoses Carotid stenosis, bilateral I65.23 Stroke-like symptoms R29.90 ESRD (end stage renal disease) on dialysis N18.6; Z99.2 Hypertension I10 Gout M10.9 Thiamine deficiency E51.9 Depression with anxiety F41.8 COPD (chronic obstructive pulmonary disease) J44.9 COPD type: unspecified COPD Paroxysmal atrial fibrillation I48.0 Type 2 diabetes mellitus without complication E11.9 Pacemaker Z95.0 History of stroke Z86.73 PTSD (post-traumatic stress disorder) F43.10 Lung nodule R91.1 Morbid obesity with BMI of 40.0-44.9, adult E66.01; Z68.41 Hyponatremia E87.1 Vomiting R11.10 DVT prophylaxis Z29.9 (1) COPD (chronic obstructive pulmonary disease) COPD type: unspecified COPD Qualified Code(s): J44.9 - Chronic obstructive pulmonary disease, unspecified
--- NOTE | 2019-07-15 21:54 | XRay Report ---
XR abdomen 2V w PA chest CLINICAL HISTORY: Constipation COMPARISON STUDY: No previous studies for comparison. FINDINGS: There is a right-sided femoral catheter. There are multiple surgical clips within the pelvi s consistent with a prior lymph node dissection. There are surgical clips within the right upper quad rant consistent with a prior cholecystectomy. There is a nonobstructive bowel gas pattern. There is s cattered stool within the colon. Direct chest reveals cardiomegaly. There is no free air. There is a left subclavian dual-chamber central venous pacemaker. There is no focal pulmonary consolidation. IMPRESSION: No evidence of bowel obstruction. No evidence of free air. ACT 112: Negative or not required by law. Electronically signed by: Rafa Durant M.D. 07/15/2019 9:53 PM
[2019-07-16] MEDS ORDERED: SODIUM CHLORIDE 0.9% 1000ML 1,000 ML IV PRN (07:00)
[2019-07-16 07:10] LABS: Hematocrit (blood only) 28.7 % (42-52); Hemoglobin 9.9 g/dL (14.0-18.0)
[2019-07-16 07:23] LABS: INR 2.4 (0.9-1.1)
[2019-07-16 07:42] LABS: Calcium 8.9 mg/dl (8.5-10.1); Creatinine Clr Calc Pharmacy 11.6 ml/min; Est GFR (African American) 7.8; Est GFR (Non-African American) 6.8; Potassium 3.8 mmol/L (3.5-5.1)
[2019-07-16] MEDS: INSULIN ASPART 100 UNITS/ML 3 ML PEN SC SCH ×4 (07:43→20:52)
[2019-07-16] MEDS: VENLAFAXINE HCL XR 75 MG CAPXR PO SCH (07:44)
[2019-07-16] MEDS: SEVELAMER HCL 800 MG TABLET PO SCH ×3 (07:44→17:16)
[2019-07-16] MEDS: CEROVITE ADV FORMULA TAB PO SCH (07:44)
[2019-07-16] MEDS: ASCORBIC ACID 500 MG TAB PO SCH (07:44)
[2019-07-16] MEDS: ASPIRIN 81 MG ECTAB PO SCH (07:45)
[2019-07-16] MEDS: CYANOCOBALAMIN 500 MCG TABLET (VITAMIN B-12) PO SCH (07:45)
[2019-07-16] MEDS: LORATADINE 10 MG TAB PO SCH (07:45)
[2019-07-16] MEDS: PANTOprazole 40 MG TAB PO SCH (07:45)
[2019-07-16] MEDS: allopurinoL 300 MG TAB PO SCH (07:45)
[2019-07-16] MEDS: ISOSORBIDE MONO EXTENDED REL 60 MG TABCR PO SCH (07:45)
[2019-07-16] MEDS: CHOLECALCIFEROL 1,000 UNITS 25 MCG TAB PO SCH (07:45)
[2019-07-16] MEDS: NEPHROCAPS PO SCH (07:46)
[2019-07-16] MEDS: FLUTICASONE/VILANTEROL 100/25MCG 14 PUFFS/INHALER INH SCH (07:46)
[2019-07-16] MEDS: UMECLIDINIUM BROMIDE 62.5MCG/BLISTER 7 PUFFS/INHALER INH SCH (07:46)
[2019-07-16] MEDS: THIAMINE HCL 100 MG TAB PO SCH (07:46)
[2019-07-16] MEDS ORDERED: bisacodyL 5 MG TABEC PO ONE ×2 (09:46→15:58)
[2019-07-16] MEDS: POLYETHYLENE (MIRALAX) 17 GM PACK PO SCH ×3 (13:33→16:39)
[2019-07-16] MEDS ORDERED: bisacodyL 10 MG SUPP PR STA (17:05)
[2019-07-16] MEDS: hydrOXYzine HCl 10 MG TAB PO SCH (20:49)
[2019-07-16] MEDS: ATORVASTATIN 40 MG TAB PO SCH (20:50)
[2019-07-16] MEDS: clonazePAM 0.5 MG TAB PO PRN (21:47)
[2019-07-16] MEDS: TRAZODONE HCL 50 MG TAB PO SCH (21:47)
--- NOTE | 2019-07-16 22:45 | Hospitalist Progress Note ---
Date of Service July 16, 2019 Assessment & Plan (1) Vomiting: occurred last pm. none since. obtained abdominal x-rays - no ileus, no SBO; I saw large amount of well-formed stool on the film. gave 3 doses of miralax and PO dulcolax with results. dulcolax suppos x 1. if no improvement with such -- then enema. can advance diet since vomiting has resolved. (2) Carotid stenosis, bilateral: POD #3 - s/p right-sided CEA by Dr Jennings. also has left-sided ICA stenosis - to be addressed in the future. will need to see Dr Jennings in 2 weeks post-d/c. needs bowel movement as he has had none since the AM of surgery. (3) Stroke-like symptoms: TIA - present on admission. Had left sided weakness and dysarthria at presentation. Symptoms resolved. Unable to obtain MRI due to MRI incompatible pacemaker. CTA neck with b/l carotid stenosis. Concern that right-sided ICA stenosis contributed to TIA. Thus underwent right-sided CEA by Dr Jennings as above. Remains on aspirin for secondary prevention. Lipid panel unable to be completed due to TG at 536; remains on high-dose statin but triglyceride lowering agent should be considered (niacin, fish oil, etc). Pharmacy suggested prescription fish oil at d/c - I agree as long as cost is not a factor. PT/OT/ST evals appreciated. neuro exam stable today (speech is clear & fluent today). (4) ESRD (end stage renal disease) on dialysis: Schedule - M/W/F permcath right chest removed, POD 4 new permcath placed in right femoral vein, POD 3 volume status appropriate today following HD spoke with Dr Jennings - hopefully right femoral permcath can be removed next couple of weeks (5) Hypertension: continue home meds controlled (6) Gout: continue home meds no flares this admission (7) Thiamine deficiency: continue thiamine 100mg daily (8) Depression with anxiety: continue home meds no issues (9) COPD (chronic obstructive pulmonary disease): continue home meds no flare at this time (10) Paroxysmal atrial fibrillation: cont warfarin INR therapeutic paced on tele INR in am (11) Type 2 diabetes mellitus without complication: holding oral agent A1c 7.4 SSI PRN control adequate at this time (12) Pacemaker: paced on monitor stable (13) History of stroke: with concurrent TIA see above (14) PTSD (post-traumatic stress disorder): continue home meds (15) Lung nodule: seen on CT, RUL - 2.5cm in size Recs for f/u CT in 1 month pulmonary nodule program can follow (16) Morbid obesity with BMI of 40.0-44.9, adult: BMI 40-41 (17) Hyponatremia: 2nd ESRD stable Na level today (18) DVT prophylaxis: Coumadin updated at bedside PT/OT advising rehab but patient ADAMANTLY REFUSES once again today needs to move bowels prior to d/c Admission and Anticipated Discharge Date Admission Date: July 09, 2019 Anticipated date of discharge: 07/17/19 Subjective patient feeling well hopeful for d/c home today IS passing flatus but no stool yet no further emesis denies abd pain again restates that he will not go to inpatient rehab in any location Review of Systems Constitutional: no fever, no chills, no fatigue and no anorexia Respiratory: no cough and no dyspnea Cardiovascular: no chest pain Gastrointestinal: no abdominal pain, no bloating, no nausea and no vomiting Physical Exam Constitutional: + obese; no acute distress and no altered mental status ENMT: external ear and nose normal, oropharynx normal Respiratory: normal respiratory effort, lungs clear to auscultation Cardiovascular: Rate/Rhythm: regular rate and regular rhythm Heart Sounds: normal S1 and normal S2; no murmur Vessels: posterior tibial pulses present and dorsalis pedis pulses present; no JVD Extremities: no edema Gastrointestinal (Abdomen): normal bowel sounds, soft, nontender, no hepatosplenomegaly Inspection/Auscultation: + abdomen distended (mild) Skin: incision right neck clean; less swelling/ecchymoses; right femoral permcath site clean/dry Psychiatric: A+Ox3, euthymic affect Results & Data ([facility]) Vital Signs (Past 12 Hours) Vital Signs Temp Pulse Pulse Pulse Resp BP BP 07/16/19 19:42 36.5 C 60 20 07/16/19 16:00 63 07/16/19 15:16 36.3 C L 65 18 148/54 H 07/16/19 13:20 36.0 C L 63 60 18 158/58 H 07/16/19 12:40 60 132/59 L 07/16/19 12:20 60 132/51 L 07/16/19 12:00 60 159/54 H 07/16/19 11:40 60 112/53 L 07/16/19 11:20 60 145/51 H 07/16/19 11:00 60 112/41 L 07/16/19 10:40 60 124/54 L BP Pulse Ox 07/16/19 19:42 106/60 96 07/16/19 16:00 07/16/19 15:16 97 07/16/19 13:20 149/60 H 100 07/16/19 12:40 07/16/19 12:20 07/16/19 12:00 07/16/19 11:40 07/16/19 11:20 07/16/19 11:00 07/16/19 10:40 Laboratory Results Laboratory Results - last 24 hr 07/16/19 07/16/19 07/16/19 06:43 06:43 06:43 Hgb 9.9 L Hct 28.7 L PT 23.0 H INR 2.4 H Sodium 129 L Potassium 3.8 Chloride 94 L Carbon Dioxide 23 Anion Gap 12.0 H BUN 29 H D Creatinine 7.34 H* D Est Cr Clr Drug Dosing 11.6 Est GFR ( Amer) 7.8 Est GFR (Non-Af Amer) 6.8 BUN/Creatinine Ratio 4.0 L Glucose 117 H POC Glucose Calcium 8.9 07/16/19 07/16/19 07/16/19 07:17 13:21 16:16 Hgb Hct PT INR Sodium Potassium Chloride Carbon Dioxide Anion Gap BUN Creatinine Est Cr Clr Drug Dosing Est GFR ( Amer) Est GFR (Non-Af Amer) BUN/Creatinine Ratio Glucose POC Glucose 132 H 126 H 209 H Calcium 07/16/19 19:59 Hgb Hct PT INR Sodium Potassium Chloride Carbon Dioxide Anion Gap BUN Creatinine Est Cr Clr Drug Dosing Est GFR ( Amer) Est GFR (Non-Af Amer) BUN/Creatinine Ratio Glucose POC Glucose 169 H Calcium PG Care Time/CCT Total # of Minutes Spent Total Time Spent with Patient: Total time spent is greater than 50% in coordination of care (as documented) at patient's floor/unit and/or counseling patient: Coding Level of Care Code 48980 Subseq Hosp Care Lvl 3 Diagnoses Vomiting R11.10 Carotid stenosis, bilateral I65.23 Stroke-like symptoms R29.90 ESRD (end stage renal disease) on dialysis N18.6; Z99.2 Hypertension I10 Gout M10.9 Thiamine deficiency E51.9 Depression with anxiety F41.8 COPD (chronic obstructive pulmonary disease) J44.9 COPD type: unspecified COPD Paroxysmal atrial fibrillation I48.0 Type 2 diabetes mellitus without complication E11.9 Pacemaker Z95.0 History of stroke Z86.73 PTSD (post-traumatic stress disorder) F43.10 Lung nodule R91.1 Morbid obesity with BMI of 40.0-44.9, adult E66.01; Z68.41 Hyponatremia E87.1 DVT prophylaxis Z29.9 (1) COPD (chronic obstructive pulmonary disease) COPD type: unspecified COPD Qualified Code(s): J44.9 - Chronic obstructive pulmonary disease, unspecified
[2019-07-17 05:54] LABS: Prothrombin Time 28.7 Seconds (9.0-12.0)
[2019-07-17] MEDS: INSULIN ASPART 100 UNITS/ML 3 ML PEN SC SCH ×2 (08:34→12:54)
[2019-07-17] MEDS: FLUTICASONE/VILANTEROL 100/25MCG 14 PUFFS/INHALER INH SCH (08:36)
[2019-07-17] MEDS: LORATADINE 10 MG TAB PO SCH (08:36)
[2019-07-17] MEDS: SEVELAMER HCL 800 MG TABLET PO SCH ×2 (08:36→12:53)
[2019-07-17] MEDS: VENLAFAXINE HCL XR 75 MG CAPXR PO SCH (08:37)
[2019-07-17] MEDS: ASPIRIN 81 MG ECTAB PO SCH (08:37)
[2019-07-17] MEDS: THIAMINE HCL 100 MG TAB PO SCH (08:38)
[2019-07-17] MEDS: ASCORBIC ACID 500 MG TAB PO SCH (08:38)
[2019-07-17] MEDS: CYANOCOBALAMIN 500 MCG TABLET (VITAMIN B-12) PO SCH (08:38)
[2019-07-17] MEDS: CEROVITE ADV FORMULA TAB PO SCH (08:38)
[2019-07-17] MEDS: NEPHROCAPS PO SCH (08:39)
[2019-07-17] MEDS: PANTOprazole 40 MG TAB PO SCH (08:39)
[2019-07-17] MEDS: CHOLECALCIFEROL 1,000 UNITS 25 MCG TAB PO SCH (08:39)
[2019-07-17] MEDS: UMECLIDINIUM BROMIDE 62.5MCG/BLISTER 7 PUFFS/INHALER INH SCH (08:40)
[2019-07-17] MEDS: allopurinoL 300 MG TAB PO SCH (08:40)
[2019-07-17] MEDS: ISOSORBIDE MONO EXTENDED REL 60 MG TABCR PO SCH (08:40)
[2019-07-17 08:52] LABS: Hepatitis B Surface Ab Quant < 3.10 mIU/mL (>or=10mIU/mL Immune); Hepatitis B Surface Antibody Non-Immune
[2019-07-17 09:03] LABS: Hepatitis B Surface Antigen Neg (Neg)
[2019-07-17] MEDS ORDERED: POLYETHYLENE (MIRALAX) 17 GM PACK PO SCH (10:30)
[2019-07-17] MEDS ORDERED: bisacodyL 5 MG TABEC PO ONE (10:30)
--- NOTE | 2019-07-17 12:15 | Nephrology Progress Note ---
Date of Service July 17, 2019 Assessment & Plan (1) ESRD (end stage renal disease) on dialysis: -- HD MWF schedule -- BP, volume status, electrolytes are acceptable -- Femoral HD catheter used for treatment yesterday -- AVF use with 17 g as tolerated vs. femoral TDC if unable to access AVF -- Venofer 100 mg provided with HD yesterday for anemia which may have contributed to nausea --getting enema and waiting to have bowel movement before discharge Will follow (2) Hypertension: -- BP acceptable (3) CHF (congestive heart failure): -- Volume status acceptable (4) TIA (transient ischemic attack): -- POD #2 s/p R carotid endarterectomy Subjective Rick was seen and examined in his room this morning. Overall he is feeling fine although he still did not have bowel movement despite getting stool softener, concerned with that. Blood pressure , electrolyte volume status acceptable. Review of Systems Review of Systems: All systems reviewed & are unremarkable except as noted in HPI & below Physical Exam Constitutional: well developed and well nourished; no acute distress Respiratory: normal respiratory effort, lungs clear to auscultation Cardiovascular: RRR, no murmur, no edema Neurologic: moves all extremities and awake; not confused Psychiatric: A+Ox3, euthymic affect Results & Data Vital Signs (Past 12 Hours) Vital Signs Temp Pulse Pulse Resp BP Pulse Ox 07/17/19 11:21 36.4 C L 60 18 150/62 H 100 07/17/19 08:52 60 07/17/19 07:33 36.5 C 67 18 152/68 H 96 07/17/19 04:07 36.8 C 72 19 126/64 95 07/17/19 00:23 36.6 C 63 19 99/58 L 92 PG Care Time/CCT Total # of Minutes Spent Total Time Spent with Patient: Total time spent is greater than 50% in coordination of care (as documented) at patient's floor/unit and/or counseling patient: Coding Level of Care Code 02543 Subseq Hosp Care Lvl 2 Diagnoses ESRD (end stage renal disease) on dialysis N18.6; Z99.2 Hypertension I10 CHF (congestive heart failure) I50.9 TIA (transient ischemic attack) G45.9
[2019-07-17] MEDS ORDERED: STROKE PATIENT DISCHARGE STA (14:10)
--- NOTE | 2019-07-17 15:39 | Pharmacy Report ---
Pharmacist Stroke Counseling - Date of Service July 17, 2019 - Scope: Pharmacy has been consulted to provide medication discharge counseling for this patient admitted with transient ischemic attack as per the Pharmacist Discharge Counseling for Stroke Patients Protocol. - Medications on Discharge: Home Medications Medication Instructions Recorded Confirmed allopurinol 300 mg PO QAM 02/05/18 07/09/19 aspirin [Aspir-81] 81 mg PO QAM 02/05/18 07/09/19 atorvastatin 80 mg PO HS 02/05/18 07/09/19 loratadine [Claritin] 10 mg PO QAM 02/05/18 07/09/19 melatonin 10 mg PO HS 02/05/18 07/09/19 nitroglycerin 0.3 mg SUBLINGUAL DIRECTED PRN 02/05/18 07/09/19 pantoprazole 40 mg PO QAM 02/05/18 07/09/19 PreserVision AREDS-2 1 tab PO QAM 02/16/18 07/09/19 cholecalciferol (vitamin D3) 2,000 unit PO QAM 02/16/18 07/09/19 [Vitamin D3] cyanocobalamin (vitamin B-12) 1,000 mcg PO QAM 02/16/18 07/09/19 [Vitamin B-12] trazodone 150 mg PO HS 02/16/18 07/09/19 hydralazine 25 mg PO TID 05/15/18 07/09/19 thiamine HCl (vitamin B1) 100 mg 100 mg PO QAM tab 12/22/18 07/09/19 tablet albuterol sulfate 2 puff INHALATION Q4H PRN 02/12/19 07/09/19 budesonide-formoterol 2 puff INHALATION BID 02/12/19 07/09/19 fluticasone propionate 1 spray INTRANASAL DAILY PRN 02/12/19 07/09/19 isosorbide mononitrate 30 mg PO QAM 02/12/19 07/09/19 tiotropium bromide 1 cap INHALATION QAM 02/13/19 07/09/19 glipizide 10 mg PO QAM 04/22/19 07/09/19 clonazepam [Klonopin] 0.5 mg PO DAILY PRN 05/03/19 07/09/19 hydroxyzine HCl 10 mg PO HS 05/04/19 07/09/19 ascorbic acid (vitamin C) 1,000 mg PO QAM 07/09/19 07/09/19 sevelamer carbonate 800 mg PO TIDM 07/09/19 07/09/19 umeclidinium 1 inh INHALATION QAM 07/09/19 07/09/19 venlafaxine 75 mg PO QAM 07/09/19 07/09/19 New Rx's Medication Instructions Recorded polyethylene glycol 3350 [Miralax] 17 g PO BID #1 ea 07/17/19 sennosides [senna] 17.2 mg PO DAILY #60 tab 07/17/19 warfarin 2.5 mg PO DAILY #0 tab 07/17/19 - Action: The above medications, specifically ones for stroke treatment/prophylaxis, have been reviewed in detail with the patient and/or patient healthcare sales representative(s) prior to discharge. This includes indication, common adverse reactions, drug interactions, and medication administration. Medication counseling has been employed using the teach-back method to ensure understanding. - Outcome: The patient and/or patient healthcare sales representative(s) have demonstrated understanding of the medications. Please note, they are aware that the pharmacist will call them within 72 hours post-discharge to confirm that the appropriate medications are being taken and answer any further medication related questions the patient might have at that time. Contact information Individual to be contacted: Pat Relationship to patient (if applicable): Phone number: [phone] Best time to call: Friday Additional comments: Met with patient and his 07/17/19 prior to discharge. Reviewed medication changes- specifically those to prevent stroke. Discussed how/when to take medications, what to do if a dose is missed, common drug interactions, possible side effects, and things to watch out for. Advised [facility] starting TG lowering agent per my discussion with hospitalist. Patient and verbalized understanding. Thank you for allowing pharmacy to be involved in the care of this patient. Please call [phone] with any additional questions
--- NOTE | 2019-07-19 14:06 | Pharmacy Report ---
Pharmacist Post D/C Phone Note - Phone Note: Date of phone call: July 19, 2019. Individual with whom pharmacist spoke to: Mónica () The following questions were reviewed during the phone call with responses listed below each: Can you tell me the medications that you are currently taking as well as when and how you take each medication? -See Table Below When have you missed any doses of your medications? - None What side effects are you having from your medications, specifically, the new medications you were started on? - None - bowels did move today (started Miralax and Senna) What questions do you have about your medications? - None What problems are you having obtaining your medications? - None When is your next appointment with your primary care doctor? - Pat to schedule appt with PCP later on today (running late today), INR to be checked on Additional comments: - Reiterated having a discussion with Rick's PCP regarding possible treatment for high triglycerides. Mónica said that she would do so. As per the Pharmacist Discharge Counseling for Stroke Patients Protocol, this phone call has been completed within 72 hours of discharge. Thank you for allowing us to be involved in the care of this patient. - Home Medications: Home Medications Medication Instructions Recorded Confirmed allopurinol 300 mg PO QAM 02/05/18 07/09/19 aspirin [Aspir-81] 81 mg PO QAM 02/05/18 07/09/19 atorvastatin 80 mg PO 02/05/18 07/09/19 loratadine [Claritin] 10 mg PO QAM 02/05/18 07/09/19 melatonin 10 mg PO 02/05/18 07/09/19 nitroglycerin 0.3 mg SUBLINGUAL DIRECTED PRN 02/05/18 07/09/19 pantoprazole 40 mg PO QAM 02/05/18 07/09/19 PreserVision AREDS-2 1 tab PO QAM 02/16/18 07/09/19 cholecalciferol (vitamin D3) 2,000 unit PO QAM 02/16/18 07/09/19 [Vitamin D3] cyanocobalamin (vitamin B-12) 1,000 mcg PO QAM 02/16/18 07/09/19 [Vitamin B-12] trazodone 150 mg PO 02/16/18 07/09/19 hydralazine 25 mg PO TID 05/15/18 07/09/19 thiamine HCl (vitamin B1) 100 mg 100 mg PO QAM tab 12/22/18 07/09/19 tablet albuterol sulfate 2 puff INHALATION Q4H PRN 02/12/19 07/09/19 budesonide-formoterol 2 puff INHALATION BID 02/12/19 07/09/19 fluticasone propionate 1 spray INTRANASAL DAILY PRN 02/12/19 07/09/19 isosorbide mononitrate 30 mg PO QAM 02/12/19 07/09/19 tiotropium bromide 1 cap INHALATION QAM 02/13/19 07/09/19 glipizide 10 mg PO QAM 04/22/19 07/09/19 clonazepam [Klonopin] 0.5 mg PO DAILY PRN 05/03/19 07/09/19 hydroxyzine HCl 10 mg PO HS 05/04/19 07/09/19 ascorbic acid (vitamin C) 1,000 mg PO QAM 07/09/19 07/09/19 sevelamer carbonate 800 mg PO TIDM 07/09/19 07/09/19 umeclidinium 1 inh INHALATION QAM 07/09/19 07/09/19 venlafaxine 75 mg PO QAM 07/09/19 07/09/19 New Rx's Medication Instructions Recorded polyethylene glycol 3350 [Miralax] 17 g PO BID #1 ea 07/17/19 sennosides [senna] 17.2 mg PO DAILY #60 tab 07/17/19 warfarin 2.5 mg PO DAILY #0 tab 07/17/19
--- NOTE | 2019-07-22 05:04 | Discharge Summary ---
Date of Service date of admission - July 09, 2019 date of discharge - July 17, 2019 Admission HPI Per Admitting Provider 69 y/o M c/o slurred speech and weakness. Pt states that he had a usual day yesterday and was able to do his daily activities at his baseline. states that around 9p last night, pt was sitting in a chair and noted to be dizzy. Further questioning notes that this means lightheaded and not room spinning. This happens at times, especially when moving from seated to standing, so it was not very concerning. Pt noted that he was very weak and having difficulty getting out of the chair. He did not sleep well last night until around 2a. This AM, he again noted lightheadedness and he seemed confused with slurred speech to his . He was even more weak than last night, so he was brought to the ED. Pt states he feels very tired. He feels like he is struggling to pick his arms up. He can do it, but it takes more effort than usual. He does not feel confused. feels that his speech is not its usual, but better. No further confusion. Pt has had no other new concerns recently. Pt did not take his AM meds yet. He takes medications for PTSD and if he misses those, he becomes "more emotional", which family feels is happening in the ED. Pt did not have breakfast, but is hungry. Bedside swallow eval WNL per nursing. Today is a usual HD day for pt and sx started prior to leaving for this appt. Pt denies fever, SOB, chest pain, abd pain, n/v/c/d, LE pain or swelling. Principal Diagnosis transient ischemic attack Discharge Exam Constitutional + morbidly obese; no acute distress and no altered mental status ENMT external ear and nose normal, oropharynx normal Respiratory normal respiratory effort, lungs clear to auscultation Auscultation: + diminished lung sounds (bases) Cardiovascular Rate/Rhythm: regular rate and regular rhythm Heart Sounds: normal S1 and normal S2; no murmur Vessels: posterior tibial pulses present and dorsalis pedis pulses present; no JVD Extremities: no edema Gastrointestinal (Abdomen) normal bowel sounds, soft, nontender, no hepatosplenomegaly Inspection/Auscultation: + abdomen distended (mild) Skin right neck - CEA incision clean; mild swelling and ecchymoses but improved from prior exams. Right femoral permcath clean. No hematoma or drainage. Neurologic moves all extremities (strength 5/5 x 4 extremities ); no focal motor deficits Speech / Cognition: normal speech (fluent/clear; no slurriness) Psychiatric A+Ox3, euthymic affect Discharge Data Allergies Allergy/AdvReac Type Severity Reaction Status Date / Time promethazine Allergy Unknown UNCONTROLLED Verified 07/09/19 09:55 MUSCLE MOVEMENTS codeine AdvReac Unknown "trips me Verified 07/09/19 09:55 out" Consultations [facility] Vascular Surgery - [facility] - Dilan Jennings MD [facility] PT, OT, Speech therapy Director [employer] Lung Nodule Program Procedures Performed 1. Operation Date: 07/12/19 Actual Procedures Right IJ Perm Catheter Removal- Damien Jennings MD 2. Operation Date: 07/13/19 Actual Procedures Right Carotid Endarterectomy - Damien Jennings MD Right Femoral Perm Catheter Insertion - Damien Jennings MD Ordered Studies CT angio head - 1. No acute intracranial findings. 2. No vessel cut off or intraluminal thrombus within the intracranial circulation. 3. Dgmb-co-qgibqird stenosis of the left P1 segment. 4. Old infarcts within left parietal lobe and left caudate head. CT angio neck - 1. A focal peripheral nodular density abutting the medial border the right upper lobe which measures 2.5 x 1.9 cm. This could represent an infectious or neoplastic change. One-month chest CT follow-up recommended to ensure resolution. In addition, nonemergent pulmonary consultation recommended. 2. Emphysema. 3. Approximately 60% focal narrowing within the right carotid bulb and mid right subclavian artery. 4. Approximately 80-90% focal stenosis within the left carotid bulb. CT head/brain - negative for acute stroke abdominal x-rays Hospital Course (1) Stroke-like symptoms: TIA - present on admission. Had left sided weakness and dysarthria at presentation. Symptoms resolved. Unable to obtain MRI due to MRI incompatible pacemaker. CTA neck with b/l carotid stenosis. Neurology was consulted, and the concern was that his right-sided ICA stenosis contributed to the TIA. Thus underwent right-sided CEA by Dr Jennings as noted below. Remains on aspirin for secondary prevention. He also remains on coumadin for history of paroxysmal a.fib. Lipid panel unable to be completed due to TG at 536; remains on high-dose statin but triglyceride lowering agent should be considered (niacin, fish oil, etc). Pharmacy suggested prescription fish oil at d/c - could consider initiating this as outpatient as long as cost is not a factor. PT/OT/ST evals were completed; PT/OT strongly advised inpatient rehab post- discharge. Patient ADAMANTLY refused rehab on multiple occasions, often becoming upset when discussing this proposition. Neuro exam was stable in the days leading up to discharge. (2) Carotid stenosis, bilateral: See discussion above re: implication of carotid stenosis in his presenting TIA. He was seen in consult by Dr Jennings from vascular and ultimately underwent right-sided CEA by Dr Jennings while hospitalized. Post-op he spent 24 hours in the ICU for observation purposes. He remained stable while there and was transitioned back to the telemetry unit. The patient's right CEA incision is clean at time of discharge. He will follow- up with Dr Jennings 2 weeks post-discharge. The patient also has left-sided ICA stenosis - to be addressed in the future. He will remain on aspirin and statin agent as previous. (3) ESRD (end stage renal disease) on dialysis: Schedule - //. Patient has RUE AV fistula. There were some issues accessing the fistula during this stay. He had a pre-existing right IJ permcath at time of admission. The patient's right IJ permcath was removed PRIOR TO his CEA procedure. He had a new permcath placed in right femoral vein and this was functioning well for HD purposes. It is hoped that the right femoral permcath can be removed within the next couple of weeks as an outpatient. Volume status is appropriate at time of discharge. (4) Hypertension: continue home meds controlled (5) Gout: continue home meds no flares this admission (6) Thiamine deficiency: continue thiamine 100mg daily (7) Depression with anxiety: continue home meds no issues (8) COPD (chronic obstructive pulmonary disease): continue home meds no flare at this time (9) Paroxysmal atrial fibrillation: cont warfarin INR therapeutic at 3 on day of discharge paced on telemetry his entire stay no a.fib seen (10) Type 2 diabetes mellitus without complication: A1c 7.4 SSI PRN control adequate during the visit oral DM agents were resumed at discharge (11) Pacemaker: paced on monitor during the hospital stay pacemaker appears to be functioning well (12) History of stroke: with concurrent TIA see above (13) PTSD (post-traumatic stress disorder): continue home meds (14) Lung nodule: seen on CT, RUL - 2.5cm in size will need f/u CT in 1 month as per radiology [facility] pulmonary nodule program to follow up post-discharge (15) Morbid obesity with BMI of 40.0-44.9, adult: BMI 40-41 (16) Hyponatremia: 2nd ESRD stable Na level at discharge (129, which is baseline) (17) DVT prophylaxis: remained on Coumadin the entire stay (18) Constipation: significant, especially following his CEA. x-rays did not show ileus. required copious amounts of oral and rectal agents after discharge will likely need a combination of miralax with senna for bowel maintenance (19) Physical deconditioning: Received PT/OT services while here. It was strongly advised for patient to consider inpatient rehab. Again he was ADAMANTLY AGAINST such, opting for home with home health. He remains at high risk of readmission due to his numerous comorbidities and significant deconditioning. Total Time Total Time Spent Total Time Spent (In Minutes): 45 Total Time Includes: Examination of the Patient, Discharge Planning, Medication Reconciliation and Communication With Other Providers Discharge Plan Discharge Items Patient Disposition: Home - Home Health Services Reason For Visit: Concern for STROKE Discharge Diagnosis: 1. transient ischemic attack (TIA) - no stroke found 2. carotid stenosis of both carotid arteries 3. carotid endarterectomy procedure on the right by Dr Jennings 4. constipation 5. kidney failure on dialysis Activity: Per Instructions section Non-emergency contact: Primary Care Provider, Surgeon and Research Clerk Call non-emergency contact if: you have any medication questions, your symptoms worsen, your pain is not controlled, your pain is worsening, your pain is unusual for you, you have a fever, your wound has increased redness, your wound has increased drainage and your wound pain has increased Follow-up/Referrals: Damien Jennings MD [Physician] - (Call [phone] to schedule a two week follow-up appointment. ) Toño Fry MD [Primary Care Provider] - 07/22/19 9:00 am ([facility] ) Diet: Carb Consistent or DM2 and Dialysis Renal Fluids: 1800ml (7 cups) Addtl Attending Provider Instructions: You likely had a "TIA" (transient ischemic attack) at time of admission. This is NOT the same thing as a stroke but it is a well-known risk factor for future stroke. We were concerned that the plaque build-up in your carotid arteries may have caused the TIA and thus Dr Jennings performed surgery on your right carotid. You did well with the surgery and you are recovering nicely. Dr Jennings took out the old catheter from the chest and placed a new one in the right groin. DO NOT TAKE A BATH AT ANY TIME. Recommendations: 1. SKIP your coumadin today. 2. RESUME coumadin tomorrow (take 2.5mg) on 07/18. 3. Take coumadin 2.5mg daily - your dose has been lowered for now. 4. Have a repeat INR blood test for your coumadin on 07/19/19. 5. Your INR on 07/17 is 2. 6. constipation - * miralax once-twice daily * sennakot 2 tablets once daily * both are [id number] * if not having success with your bowels then you can try a suppository OR increase the sennakot to 4 tabs/day * if your bowels are stopped up, you can't eat, or you are vomiting please seek medical attention 7. follow any instructions from Dr Jennings. 8. Continue your oxygen as previous - bedtime and as needed. 9. Report for dialysis on Friday, 07/19 as scheduled. follow-up - see Dr Jennings in 2 weeks Return to [facility] if - * you have any concerns about your right neck incision or your catheter in the right groin * you have worsening shortness of breath or chest pains * you have worsening abdominal pain, severe constipation, etc * you have fever over 100.5 degrees * any other concerns Additional stroke/TIA instructions - Risk Factors for Stroke: You can reduce your chances of stroke by working with your medical provider to adopt a healthy lifestyle. Some specific ways to lower your chance of stroke are: * If you are a smoker, now is the time to stop smoking cigarettes * If you are diabetic, improve the control of your blood sugars * Avoid excessive amounts of alcohol * Control high blood pressure * Lose weight if you are overweight * Be sure to lead an active lifestyle * Eat a healthy diet low in salt, cholesterol and fat You should know about other risk factors for stroke that you are unable to control. These include: * Age 55 years or older * Male gender * Certain racial groups: , or / * Family History of Stroke, Mini stroke or Heart Attack * Sickle Cell Disease Who to Call and When: Medical Emergencies: Call 911 immediately if you experience any of the following warning signs and symptoms of Stroke: * Sudden numbness or weakness of the face, arm or leg, especially on one side of the body * Sudden confusion, trouble speaking or understanding * Sudden trouble seeing in one or both eyes * Sudden trouble walking, dizziness, loss of balance or coordination * Sudden severe headache with no cause Do not delay calling 911 if you experience any warning signs or symptoms of a stroke. Delay in seeking medical attention may affect what treatments can be given to you. . Addtl Linux Unix System Administrator Provider Instructions: SPECIAL CARE INSTRUCTIONS from Dr Jennings - vascular surgery - Medications: * Continue to take Aspirin as directed. Incision Care: * You may shower, but do not rub incision. You may let the warm soapy water run over it. Be sure to dry the incision well after bathing. * Do not shave directly over the incision until it is healed. * DO NOT IMMERSE THE INCISION IN A TUB/POOL/etc. UNTIL HEALED. Restrictions: * Do not drive for at least one week or if you are still taking any narcotic pain medication. * Do not lift anything heavier than a gallon of milk for one week after going home. Possible Complications: * Numbness - It is normal to have some numbness around the incision. Numbness can extend beyond the incision to areas of the neck, ear and face. The numbness is due to bruising of nerves during the surgery and will gradually improve over a period of months. * Hoarseness/Difficulty Speaking and Swallowing - The bruising of nerves in the neck can also cause a hoarse voice, difficulty speaking or swallowing. This may improve over time, HOWEVER, if it continues for more than a few days please contact our office ([phone]). * Excessive Swelling - There will be some swelling immediately after surgery which usually resolves within one week. If you notice that the swelling is gett ing worse, notify your surgeon ([phone]). * Drainage/Bleeding - If there is any drainage or bleeding, it should be a very small amount (less than a teaspoon per day). If you have excessive bleeding or drainage from the incision, call your surgeon ([phone]) right away. ACTIVATION OF EMERGENCY MEDICAL SYSTEM: Call 911, immediately, if you experience any of the following: Warning Signs and Symptoms of Stroke: * Sudden numbness or weakness of the face, arm or leg, especially on one side of the body * Sudden confusion, trouble speaking or understanding * Sudden trouble seeing in one or both eyes * Sudden trouble walking, dizziness, loss of balance or coordination * Sudden severe headache with no cause Do not delay calling 911 if you experience any warning signs or symptoms of a stroke. Delay in seeking medical attention may affect what treatments can be given to you. Risk Factors for Stroke: You can reduce your chances of stroke by working with your medical provider to adopt a healthy lifestyle. Some specific ways to lower your chance of stroke a re: * If you are a smoker, now is the time to stop smoking cigarettes * If you are diabetic, improve the control of your blood sugars * Avoid excessive amounts of alcohol * Control high blood pressure * Lose weight if you are overweight * Be sure to lead an active lifestyle * Eat a healthy diet low in salt, cholesterol and fat You should know about other risk factors for stroke that you are unable to control. These include: * Age 55 years or older * Male gender * Certain racial groups: , or / * Family History of Stroke, Mini stroke or Heart Attack * Sickle Cell Disease You will be receiving a call from the Vascular Surgery Nurse after you are discharged. FOLLOW UP VISIT: Call [phone] to schedule a 2-week follow up appointment with Dr Jennings Pending Studies at Discharge: No Stand-Alone Forms: Medications to Prevent Stroke, My [facility], Smoking Cessation Medications and DC Order Prescriptions: New polyethylene glycol 3350 [Miralax] 17 gram Powder In Packet 17 g PO BID Qty: 1 RF: 0 sennosides [senna] 8.6 mg tablet 17.2 mg PO DAILY Qty: 60 RF: 2 Continued thiamine HCl (vitamin B1) 100 mg tablet 100 mg PO QAM RF: 0 atorvastatin 80 mg Tablet 80 mg PO HS RF: 0 nitroglycerin 0.3 mg Tablet, Sublingual 0.3 mg Sublingual DIRECTED PRN (Reason: Chest Pain) RF: 0 aspirin [Aspir-81] 81 mg Tablet,Delayed Release (Dr/Ec) 81 mg PO QAM RF: 0 pantoprazole 40 mg Tablet,Delayed Release (Dr/Ec) 40 mg PO QAM RF: 0 allopurinol 300 mg Tablet 300 mg PO QAM RF: 0 loratadine [Claritin] 10 mg Tablet 10 mg PO QAM RF: 0 melatonin 10 mg Tablet 10 mg PO HS RF: 0 cyanocobalamin (vitamin B-12) [Vitamin B-12] 1,000 mcg Tablet 1,000 mcg PO QAM RF: 0 trazodone 100 mg Tablet 150 mg PO HS RF: 0 cholecalciferol (vitamin D3) [Vitamin D3] 1,000 unit Tablet 2,000 unit PO QAM RF: 0 PreserVision AREDS-2 [phone] [id number] Capsule 1 tab PO QAM RF: 0 hydralazine 25 mg tablet 25 mg PO TID RF: 0 albuterol sulfate 90 mcg/actuation Hfa Aerosol Inhaler 2 puff INHALATION Q4H PRN (Reason: sob) RF: 0 budesonide-formoterol 160-4.5 mcg/actuation Hfa Aerosol Inhaler 2 puff INHALATION BID RF: 0 fluticasone propionate 50 mcg/actuation [place],Suspension 1 spray INTRANASAL DAILY PRN (Reason: Congestion) RF: 0 isosorbide mononitrate 60 mg Tablet Extended Release 24 Hr 30 mg PO QAM RF: 0 tiotropium bromide 18 mcg Capsule, W/Inhalation Device 1 cap INHALATION QAM RF: 0 clonazepam [Klonopin] 0.5 mg tablet 0.5 mg PO DAILY PRN (Reason: Anxiety) RF: 0 sevelamer carbonate 800 mg tablet 800 mg PO TIDM RF: 0 ascorbic acid (vitamin C) 500 mg Capsule 1,000 mg PO QAM RF: 0 venlafaxine 37.5 mg tablet extended release 24hr 75 mg PO QAM RF: 0 umeclidinium 62.5 mcg/actuation Blister With Device 1 inh INHALATION QAM RF: 0 glipizide 10 mg tablet 10 mg PO QAM RF: 0 hydroxyzine HCl 10 mg Tablet 10 mg PO HS RF: 0 Changed warfarin 2.5 mg Tablet 2.5 mg PO DAILY Qty: 0 RF: 0 Discontinued docusate sodium 100 mg Capsule 100 mg PO UD PRN (Reason: Constipation) RF: 0 warfarin 2.5 mg Tablet 5 mg PO TUSA@1600 RF: 0 Discharge Orders: Discharge Order (Routine); Ordered 07/17/19 Ordered By: Tray Boothe/Other Patient Handouts: Stroke Sx, Endarterectomy Carotid, Endarterectomy Carotid Home, Central Line Central Venous Access Device, Endarterectomy Carotid Dc, Polyethylene Glycol powder, Senna tablets or capsules Admission Data Admit Date/Time: 07/09/19 10:53 Attending Provider: Tray Aparicio Admit Provider: Regina Vegas Primary Care Provider: Toño Fry Other Providers: Lemuel Rizo ; Tray Thomson ; Vitor Carter ; Damien Jennings ; Sean Beck ; Gino Carlisle III ; Hope Tillman ; Junie May ; Bobby Lara ; Asaf Hollins ; Sean Jernigan ; Dung Vee ; Javier Aldrich ; Castro Lindsay ; Osmani Serra ; Trupti Esteban ; Michael Frazier ; [place] Other Interventions: Discharge Summary Assessment (RN) Last Done: 07/17/19 14:26 DC Date/Time DO NOT enter until pt leaves facility: 07/17/19 15:32 Coding Level of Care Code D/C Day Management >30 mins Diagnoses Stroke-like symptoms R29.90 Carotid stenosis, bilateral I65.23 ESRD (end stage renal disease) on dialysis N18.6; Z99.2 Hypertension I10 Gout M10.9 Thiamine deficiency E51.9 Depression with anxiety F41.8 COPD (chronic obstructive pulmonary disease) J44.9 COPD type: unspecified COPD Paroxysmal atrial fibrillation I48.0 Type 2 diabetes mellitus without complication E11.9 Pacemaker Z95.0 History of stroke Z86.73 PTSD (post-traumatic stress disorder) F43.10 Lung nodule R91.1 Morbid obesity with BMI of 40.0-44.9, adult E66.01; Z68.41 Hyponatremia E87.1 DVT prophylaxis Z29.9 Constipation K59.00 Physical deconditioning R53.81
== END 2019-07-17 15:32 | disposition home health service (06) | DRG 25 ==
LOC: ED 08:50 → 2W 10:53 → SUATTDRO 10:53 → 2W 11:13 → 1E 07-13 15:26 → 2S 07-14 18:35

== ENCOUNTER 2019-08-17 07:15 | Inpatient (IN) ==
--- NOTE | 2019-08-06 08:12 | Anesthesiology Consultation ---
Date of Service August 06, 2019 Assessment & Plan (1) Encounter for pre-operative examination: Chart Review Chart Review: Pending: Refer to Additional Notes / Consult section (updated labs, updated pacer check and most recent [facility] note ) and Patient NOT seen in Pre Admission Testing Will attempt to get updated labs, updated pacer check, and most recent PCP note Right CEA 07/09/19= GA - Grade 2 view with MAC #3.0. ETT # 8.0- atraumatic. A line inserted to left left side. Last seen [facility] 05/06/19= Reviewed 01/2019 ECHO. Pt at time of appt seemed stable and euvolemic- had slow 30lb weight loss since starting dialysis. Dialysis had been started in Jan 2019. CAD with stent, Jun 2018 stress test showed no ischemia and EF of 56%. Hyperlipidemia is controlled. Pt struggles with diet control and fluid restriction. "Patient stable from cardiac standpoint and should be cleared for hemodialysis access site creation surgery. Beta bertin should be continued throughout the perioperative period." Pt will f/u in 3-6 months History Surgery Operation Date: 08/17/19 09:50 Proposed Procedures p Left Carotid Endarterectomy - Damien Jennings MD Height/Weight Height: 5 ft 8 in Weight: 121.109 kg Allergies Allergy/AdvReac Type Severity Reaction Status Date / Time promethazine Allergy Unknown UNCONTROLLED Verified 08/04/19 16:15 MUSCLE MOVEMENTS codeine AdvReac Unknown "trips me Verified 08/04/19 16:15 out" Medications Home Medications Medication Instructions Recorded Confirmed Last Taken allopurinol 300 mg PO QAM 02/05/18 08/04/19 07/08/19 aspirin [Aspir-81] 81 mg PO QAM 02/05/18 08/04/19 07/08/19 atorvastatin 80 mg PO 02/05/18 08/04/19 07/08/19 loratadine [Claritin] 10 mg PO QAM 02/05/18 08/04/19 07/08/19 melatonin 10 mg PO 02/05/18 08/04/19 07/08/19 nitroglycerin 0.3 mg SUBLINGUAL DIRECTED PRN 02/05/18 08/04/19 02/12/19 2 tablets pantoprazole 40 mg PO QAM 02/05/18 08/04/19 07/08/19 PreserVision AREDS-2 1 tab PO QAM 02/16/18 08/04/19 07/08/19 cholecalciferol (vitamin D3) 2,000 unit PO QAM 02/16/18 08/04/19 07/08/19 [Vitamin D3] cyanocobalamin (vitamin B-12) 1,000 mcg PO QAM 02/16/18 08/04/19 07/08/19 [Vitamin B-12] hydralazine 25 mg PO TID 05/15/18 08/04/19 07/08/19 thiamine HCl (vitamin B1) 100 mg 100 mg PO QAM tab 12/22/18 08/04/19 07/08/19 tablet albuterol sulfate 2 puff INHALATION Q4H PRN 02/12/19 08/04/19 Unknown budesonide-formoterol [Symbicort] 2 puff INHALATION BID 02/12/19 08/04/19 07/08/19 fluticasone propionate 1 spray INTRANASAL DAILY PRN 02/12/19 08/04/19 Unknown isosorbide mononitrate 30 mg PO QAM 02/12/19 08/04/19 07/08/19 tiotropium bromide [Spiriva with 1 cap INHALATION QAM 02/13/19 08/04/19 07/08/19 HandiHaler] glipizide 5 mg PO QAM 04/22/19 08/04/19 07/08/19 clonazepam [Klonopin] 0.5 mg PO DAILY PRN 05/03/19 08/04/19 05/10/19 21:00 ascorbic acid (vitamin C) 1,000 mg PO QAM 07/09/19 08/04/19 07/08/19 sevelamer carbonate [Renvela] 800 mg PO TIDM 07/09/19 08/04/19 07/08/19 venlafaxine 75 mg PO QAM 07/09/19 08/04/19 07/08/19 warfarin 2.5 mg PO DAILY #0 tab 07/17/19 08/04/19 07/08/19 16:00 hydroxyzine HCl 25 mg PO HS 08/04/19 08/04/19 Unknown polyethylene glycol 3350 [Miralax] 17 g PO BID PRN 08/04/19 08/04/19 Unknown sennosides [senna] 17.2 mg PO DAILY PRN 08/04/19 08/04/19 Unknown trazodone 150 mg PO HS 08/04/19 08/04/19 Unknown Past Medical History Medical History (Updated 08/06/19 @ 16:40 by Anjelica Rodriguez PA-C) Anemia Anxiety Atrial fibrillation DX 2006 - NO HX CARDIOVERSION Cancer HX OF BLADDER HX OF PROSTATE Carotid stenosis, bilateral CHF (congestive heart failure) Chronic back pain Chronic obstructive pulmonary disease on 2 L O2 prn, 3L HS with BiPAP (not using BiPAP currently due to mask issues) Coronary arteriosclerosis S/P BMS to RCA November 2012 Depression Diabetes mellitus, type 2 NIDDM Dialysis patient MON, WED AND FRI (RIGHT SHOULDER AREA CURRENT ACCESS) ESRD (end stage renal disease) on dialysis GERD (gastroesophageal reflux disease) Gout continue allopurinol for prophylaxis Hiatal hernia History of kidney stones Hyperlipidemia Hypertension Morbid obesity Osteoarthritis Pacemaker 2011 IMPLANTED FOR A-FIB Peripheral neuropathy Post traumatic stress disorder Presence of urostomy Sleep apnea BIPAP Stroke NOVEMBER 2017- SLURRED SPEECH/LEFT FOOT WEAKNESS- CT SCAN SHOWED EVIDENCE OF AN OLD STROKE- ? EXACT DATE RESIDUAL LEFT SIDED WEAKNESS TIA (transient ischemic attack) 07/09/2019 during hospital admission- did not receive thrombolytic therapy- dysarthria and left arm weakness improved. Unable to obtain MRI due to pacemaker Past Family History Family History Other Family history non-contributory Denies family history of Stroke Past Surgical History Surgical History History of biopsy of bladder (Resolved) History of cardiac cath (Resolved) STENT PLACED 2011 History of carotid endarterectomy right carotid 07/13/[address] Jennings History of cataract surgery (Resolved) RT/LEFT History of cholecystectomy (Resolved) History of colonoscopy History of laminectomy (Resolved) LUMBAR History of prostatectomy (Resolved) History of tooth extraction (Resolved) History of urologic surgery FOR KIDNEY STONE History of urostomy BLADDER REMOVED D/T CANCER STOMA REVISED History of vascular access device right femoral line in currently. Pericardial disease (Resolved) PERICARDIAL WINDOW/MICROSCOPIC ([facility]) 2013 S/P arteriovenous (AV) fistula creation right arm (05/2019) Social History Smoking Status: Former smoker tobacco type: cigarettes Do You Dip or Chew Tobacco: No Smoking End Date: 2000 Hx Alcohol Use: No Hx Substance Use: No substance use type: does not use Testing Electrocardiogram Date: 07/09/19 Ventricular paced rhythm at 78bpm. Compared to 05/04/19 EKG- PVCs no longer present, vent rate decreased by 4bpm Chest X-Ray Date: 07/15/19 XR abdomen 2V w PA chest = Direct chest reveals cardiomegaly. There is no free air. There is a left subclavian dual-chamber central venous pacemaker. There is no focal pulmonary consolidation. Echocardiogram Date: 02/16/19 EF: 55 to 60% LV Function: normal RWMA: + none Other Findings: + LVH (Mild/concentric) Apical wall motion abnormality may reflect pacemaker activation. Left atrium mildly dilated. Mild TR. Mild MR. Compared to study on 02/16/2018, no significant change. Other Testing Head CT 07/11/19= No acute intracranial findings. No change in appearance of the brain. Old left parietal lobe infarct. (: No acute intracranial hemorrhage, midline shift or mass effect is present. Ventricular system is normal. The basilar cisterns are patent. There are no extra-axial collections. Old infarct within left parietal lobe is noted. There is an old lacunar infarct within left caudate head. White matter hypodensity suggests small vessel disease. The appearance of the brain is unchanged. There are no findings to suggest acute dural sinus thrombosis or acute territorial infarct.) Neck CTA 07/09/19= Approximately 60% focal narrowing within the right carotid bulb and mid right subclavian artery. Approximately 80-90% focal stenosis within the left carotid bulb. A focal peripheral nodular density abutting the medial border the right upper lobe which measures 2.5 x 1.9 cm. This could represent an infectious or neoplastic change. One-month chest CT follow-up recommended to ensure resolution. In addition, nonemergent pulmonary consultation recommended. Emphysema.
[~2019-08-17 07:15] MED LIST changes: -ALLO100T PO; -ASPI-319 PO; -ATOR-26 PO; +BUPIVACAINE/EPINEPHRINE 0.5% MPF 1:200,000 10 ML VIAL ONE; -BUSP-8 PO; +CEFAZOLIN 250 MG/ML 1 GM VIAL ONE; +CEFAZOLIN 3000MG 72.5 ML IV SCH; -CHOL100027 PO; -CLON1TAB10 PO; -CLOP1TAB15 PO; -CLR10 PO; -CYAN1TAB17 PO; -FRS/40 PO; -GABA-113 PO; +GELATIN SPONGE SZ 100 ONE; -GLIP5TAB11 PO; +HEPARIN (PORCINE) 1000 UNIT/ML 10 ML (CATH LAB USE ONLY) ONE; -IPRA-64 INH; +LIDOCAINE HCL 1% 20 ML VIAL ONE; -LISI-730 PO; -MELA1CAP9 PO; -METO50TA16 PO; -MULT60CA PO; -NTRSL3 UT; -PANT40TA PO; -PXL/40 PO; +SODIUM CHLORIDE 0.9% 1000ML IV SCH; -SYMIN/8045 INH; +THROMBIN FOR SOLN 20000 UNIT KIT ONE; -TRAZ100T29 PO
[2019-08-17 08:05] LABS: INR 1.1 (0.9-1.1); Partial Thromboplastin Time 28.3 Seconds (21.0-31.0); Prothrombin Time 11.6 Seconds (9.0-12.0)
[2019-08-17 08:09] LABS: BUN Creatinine Ratio 3.6 (10-20); Calcium 8.6 mg/dl (8.5-10.1); Creatinine Clr Calc Pharmacy 19.3 ml/min; Est GFR (African American) 14.5; Est GFR (Non-African American) 12.5; Potassium 3.8 mmol/L (3.5-5.1)
--- NOTE | 2019-08-17 08:41 | History & Physical Report ---
Date of Service August 17, 2019 Assessment & Plan (1) Stenosis of left internal carotid artery: Patient is admitted for left carotid endarterectomy. I have discussed the risks options and benefits of the procedure with the patient. The patient understands the risks options and benefits and agrees to the procedure. History of Present Illness Chief Complaint: Left internal carotid artery stenosis Primary Care Provider: Toño Fry MD 69 yo m with multuple medical problems, including ESRD on HD, CHF, HTN, CAD, pacemaker, COPD, GOUT, DMII, a fib, and TIA in past, admitted with stroke like sx in July and underwent a right CEA which was uneventful. He also has a severe Left ICA stenosis He is now admitted for a left CEA. Pt continues to dialyze through permcath, just started using his RUE AVF for HD via single needle but it is not functioning normally. Allergies Allergy/AdvReac Type Severity Reaction Status Date / Time promethazine Allergy Intermediate UNCONTROLLED Verified 08/17/19 07:52 MUSCLE MOVEMENTS codeine AdvReac Intermediate "trips me Verified 08/17/19 07:52 out" Home Medications Home Medications Medication Instructions Recorded Confirmed Type allopurinol 300 mg PO QAM 02/05/18 08/17/19 History aspirin [Aspir-81] 81 mg PO QAM 02/05/18 08/17/19 History atorvastatin 80 mg PO HS 02/05/18 08/17/19 History loratadine [Claritin] 10 mg PO QAM 02/05/18 08/17/19 History melatonin 10 mg PO HS 02/05/18 08/17/19 History nitroglycerin 0.3 mg SUBLINGUAL DIRECTED PRN 02/05/18 08/17/19 History pantoprazole 40 mg PO QAM 02/05/18 08/17/19 History PreserVision AREDS-2 1 tab PO QAM 02/16/18 08/17/19 History cholecalciferol (vitamin D3) 2,000 unit PO QAM 02/16/18 08/17/19 History [Vitamin D3] cyanocobalamin (vitamin B-12) 1,000 mcg PO QAM 02/16/18 08/17/19 History [Vitamin B-12] hydralazine 25 mg PO TID 05/15/18 08/17/19 History thiamine HCl (vitamin B1) 100 mg 100 mg PO QAM tab 12/22/18 08/17/19 History tablet albuterol sulfate 2 puff INHALATION Q4H PRN 02/12/19 08/17/19 History budesonide-formoterol [Symbicort] 2 puff INHALATION BID 02/12/19 08/17/19 History fluticasone propionate 1 spray INTRANASAL DAILY PRN 02/12/19 08/17/19 History isosorbide mononitrate 30 mg PO QAM 02/12/19 08/17/19 History tiotropium bromide [Spiriva with 1 cap INHALATION QAM 02/13/19 08/17/19 History HandiHaler] glipizide 5 mg PO QAM 04/22/19 08/17/19 History clonazepam [Klonopin] 0.5 mg PO DAILY PRN 05/03/19 08/17/19 History ascorbic acid (vitamin C) 1,000 mg PO QAM 07/09/19 08/17/19 History sevelamer carbonate [Renvela] 800 mg PO TIDM 07/09/19 08/17/19 History venlafaxine 75 mg PO QAM 07/09/19 08/17/19 History warfarin 2.5 mg PO DAILY #0 tab 07/17/19 08/17/19 Rx hydroxyzine HCl 25 mg PO HS 08/04/19 08/17/19 History polyethylene glycol 3350 [Miralax] 17 g PO BID PRN 08/04/19 08/17/19 History sennosides [senna] 17.2 mg PO DAILY PRN 08/04/19 08/17/19 History trazodone 150 mg PO HS 08/04/19 08/17/19 History enoxaparin [Lovenox] 80 mg SUBCUT DAILY 08/17/19 08/17/19 History metoprolol tartrate 50 mg PO BID 08/17/19 08/17/19 History Past Med/Surg History Medical History Anemia Anxiety Atrial fibrillation DX 2006 - NO HX CARDIOVERSION Cancer HX OF BLADDER HX OF PROSTATE Carotid stenosis, bilateral CHF (congestive heart failure) Chronic back pain Chronic obstructive pulmonary disease on 2 L O2 prn, 3L HS with BiPAP (not using BiPAP currently due to mask issues) Coronary arteriosclerosis S/P BMS to RCA November 2012 Depression Diabetes mellitus, type 2 NIDDM Dialysis patient MON, WED AND FRI (RIGHT SHOULDER AREA CURRENT ACCESS) ESRD (end stage renal disease) on dialysis GERD (gastroesophageal reflux disease) Gout continue allopurinol for prophylaxis Hiatal hernia History of kidney stones Hyperlipidemia Hypertension Morbid obesity Osteoarthritis Pacemaker 2011 IMPLANTED FOR A-FIB Peripheral neuropathy Post traumatic stress disorder Presence of urostomy Sleep apnea BIPAP Stroke NOVEMBER 2017- SLURRED SPEECH/LEFT FOOT WEAKNESS- CT SCAN SHOWED EVIDENCE OF AN OLD STROKE- ? EXACT DATE RESIDUAL LEFT SIDED WEAKNESS TIA (transient ischemic attack) 07/09/2019 during hospital admission- did not receive thrombolytic therapy- dysarthria and left arm weakness improved. Unable to obtain MRI due to pacemaker Surgical History History of biopsy of bladder (Resolved) History of cardiac cath (Resolved) STENT PLACED 2011 History of carotid endarterectomy right carotid 07/13/[address] Jennings History of cataract surgery (Resolved) RT/LEFT History of cholecystectomy (Resolved) History of colonoscopy History of laminectomy (Resolved) LUMBAR History of prostatectomy (Resolved) History of tooth extraction (Resolved) History of urologic surgery FOR KIDNEY STONE History of urostomy BLADDER REMOVED D/T CANCER STOMA REVISED History of vascular access device right femoral line in currently. Pericardial disease (Resolved) PERICARDIAL WINDOW/MICROSCOPIC ([facility]) 2013 S/P arteriovenous (AV) fistula creation right arm (05/2019) Family History Other Family history non-contributory Denies family history of Stroke Social History Preferred Language: Portuguese Communication Ability: Effective Communication Ability Comment: short term memory loss (per ). A&Ox3 Tree Pruner Required: No Beliefs That Will Affect Care: None marital status: Current Living Situation: Spouse Current Living Situation Comment: pt and his live with their dtr current occupational status: retired Other Information That Helps Us Care for You: No Feels Safe at Home: Yes Safety Concerns: Feels Safe At This Time Smoking Status: Former smoker Tobacco Type: cigarettes ; Do You Dip or Chew Tobacco: No ; Smoking End Date: 2000 ; Second Hand Exposure: Yes (hx) ; Tobacco Cessation Education Requested by Patient: No Hx Alcohol Use: No Hx Substance Use: No Review of Systems All systems reviewed & are unremarkable except as noted in HPI & below Physical Exam Physical Exam: Constitutional: WD/WN, vitals as above + morbidly obese, cooperative and comfortable; not in distress Eyes: PERRL, conjunctivae normal, anicteric sclerae ENMT: external ear and nose normal, oropharynx normal Ears: no hearing impairment Neck: trachea midline, no thyromegaly Respiratory: normal respiratory effort, lungs clear to auscultation Auscultation: + diminished lung sounds Cardiovascular: Rate/Rhythm: + irregularly irregular Vessels: posterior tibial pulses present, dorsalis pedis pulses present and radial pulses present; + abnormal peripheral pulses Extremities: normal capillary refill, + vascular access device (R IJ permcath) and + AV fistula (LUE +thrill/bruit) Gastrointestinal (Abdomen): normal bowel sounds, soft, nontender, no hepatosplenomegaly Musculoskeletal: Extremities: extremities normal to inspection and + abnormal strength (RUE/RLE 4/5, LUE 3/5, LLE 4/5) Skin: no rashes, warm and dry + wound (R wrist healing well, scab noted, smaller than last observed) Neurologic: moves all extremities, + focal motor deficit (L sided facial droop) and + confused (mildly) Speech / Cognition: + abnormal speech (dysarthria, stuttering) Psychiatric: A+Ox3, euthymic affectConstitutional: WD/WN, vitals as above + morbidly obese, cooperative and comfortable; not in distress Eyes: PERRL, conjunctivae normal, anicteric sclerae ENMT: external ear and nose normal, oropharynx normal Ears: no hearing impairment Neck: trachea midline, no thyromegaly Respiratory: normal respiratory effort, lungs clear to auscultation Auscultation: + diminished lung sounds Cardiovascular: Rate/Rhythm: + irregularly irregular Vessels: posterior tibial pulses present, dorsalis pedis pulses present and radial pulses present; + abnormal peripheral pulses Extremities: normal capillary refill, + vascular access device (R IJ permcath) and + AV fistula (LUE +thrill/bruit) Gastrointestinal (Abdomen): normal bowel sounds, soft, nontender, no hepatosplenomegaly Musculoskeletal: Extremities: extremities normal to inspection and + abnormal strength (RUE/RLE 4/5, LUE 3/5, LLE 4/5) Skin: no rashes, warm and dry + wound (R wrist healing well, scab noted, smaller than last observed) Neurologic: moves all extremities, + focal motor deficit (L sided facial droop) and + confused (mildly) Speech / Cognition: + abnormal speech (dysarthria, stuttering) Psychiatric: A+Ox3, euthymic affect Results & Data Vital Signs (Past 12 Hours) Vital Signs Temp Pulse Resp BP Pulse Ox 08/17/19 07:48 36.5 C 89 18 178/76 H 92
[2019-08-17] MEDS ORDERED: fentaNYL citrate 100 MCG/2 ML VIAL ONE ×2 (09:12→11:50)
[2019-08-17] MEDS ORDERED: ONDANSETRON INJ 2 MG/ML 2 ML VIAL IV PRN (09:34)
[2019-08-17] MEDS ORDERED: LABETALOL HCL IV 5 MG/ML 20ML IV PRN ×2 (09:34→21:17)
[2019-08-17] MEDS ORDERED: ATROPINE SULFATE 0.1 MG/ML 10ML SYR IV PRN (09:34)
[2019-08-17] MEDS ORDERED: HYDROmorphone INJ 1 MG/ML SYRINGE IV PRN (09:34)
[2019-08-17] MEDS ORDERED: DEXAMETHASONE SOD INJ 4 MG/ML VIAL ONE (10:33)
[2019-08-17] MEDS ORDERED: LIDOCAINE HCL 2% 2 ML VIAL/AMP(20MG/ML) INFIL ONE (10:33)
[2019-08-17] MEDS ORDERED: ePHEDrine sulfate 50 MG/ML SYR ONE (10:33)
[2019-08-17] MEDS ORDERED: PHENYLEPHRINE HCL 10 MG/ML VIAL ONE (10:33)
[2019-08-17] MEDS ORDERED: SUCCINYLCHOLINE CHLORIDE 20 MG/ML 10 ML VIAL ONE (10:33)
[2019-08-17] MEDS ORDERED: PROPOFOL IV EMULSION 10 MG/ML 20 ML VIAL IV ONE (10:33)
[2019-08-17] MEDS ORDERED: ONDANSETRON INJ 2 MG/ML 2 ML VIAL ONE (10:33)
[2019-08-17] MEDS ORDERED: HEPARIN SOD (PORCINE) 1000 UNIT/ML 10 ML VIAL ONE (10:55)
[2019-08-17] MEDS ORDERED: PROTAMINE SULFATE 10 MG/ML 5 ML VIAL ONE (12:18)
--- NOTE | 2019-08-17 13:04 | Operative Report ---
Post Operative Report Pre & Post Diagnosis Operation Date: 08/17/19 09:50 Pre-Op Diagnosis: Left Internal Carotid Artery Stenosis Post-Op Diagnosis: Left Internal Carotid Artery Stenosis I identified the patient and participated in the time-out.: Yes Procedure Operation Date: 08/17/19 09:50 Actual Procedures p Left Carotid Endarterectomy with bovine Patch Graft(Left) - Damien Jennings MD Surgeon Damien Jennings MD Business Administration Professor Gabby,PAC Estimated Blood Loss 100 Findings Consistent with Post-Op Diagnosis Specimens plaque Anesthesia Type General Complications none Disposition Accompanied Patient To Recovery: No Disposition: Recovery Room Indications 69male with severe left carotid stenosis. Recommended carotid endart. I have discussed the risks options and benefits of the procedure with the patient. The patient understands the risks options and benefits and agrees to the procedure. Description of Procedure The patient was taken to the operating room and placed in supine position. After general anesthesia was accomplished the left side of the neck was prepped and draped in a sterile manner. The patient was identified and a timeout performed. A longitudinal neck incision was then made coursing along the medial border of the sternocleidomastoid muscle. The incision was taken down through the platysmal layer. The facial vein was identified, ligated, and divided. The common carotid artery was then seen. It was dissected free down to the omohyoid muscle. The dissection was carried upward until the external carotid artery and superior thyroid artery was seen. The superior thyroid artery was slung with a 2-0 silk suture. The external carotid was slung with a red rubber vessel loop. Next the dissection was carried up along the internal carotid artery. This was carried upward to beyond the area of narrowing. The hypoglossal nerve was seen and preserved. We had to divide the posterior border of the digastric muscle and expose the internal carotid above the hypoglossal nerve. The patient was heparinized. After adequate heparinization was accomplished, the internal, external, and common carotid arteries were clamped. A longitudinal arteriotomy was started on the common carotid artery and extended upward along the internal carotid artery to a point beyond the area of narrowing. There was calcified lester que of the internal carotid artery origin causing approximately 85-90% narrowing. A Doppler shunt was then placed in the internal, followed by the common carotid artery and held in place with Raza clamps. There was good back bleeding seen from the internal carotid artery. The endarterectomy was then started in the appropriate plane on the common carotid artery. This was carried upward and the external carotid was everted and endarterectomized. The endarterectomy was then carried up along the internal carotid artery beneath the hypoglossal nerve till a nice feathering breakoff point was accomplished beyond the end of the plaque. The endarterectomy was then carried down further on the common carotid artery. At end of the arteriotomy, the plaque was then transected. Under loop magnification, all loose debris and flaps werer removed. There is no distal flap seen at the end of the endarterectomy site. The arteriotomy then closed using an bovine patch and a running 6-0 prolene suture. This was done in the usual vascular fashion. Prior to completing the closure, the doppler shunt was removed and the internal and common carotid arteries were reclamped. Backbleeding and forward bleeding was allowed to occur. The flow surface was irrigated with heparinized saline. The final few sutures were then placed and securely tied. Clamps were then removed off the external and common carotid arteries. The clamp was then removed the internal carotid artery. Good distal flow was seen. Adequate hemostasis was seen of the patch. The wound was inspected and adequate hemostasis was obtained. The wound was irrigated with antibiotic solution. It was then closed with a running 3-0 Vicryl suture for the platysmal layer and a 4-0 subcuticular Vicryl suture for the skin edges. De rmabond was used for dressing. The patient left the operation room in satisfactory condition and tolerated the procedure well. All needle and sponge counts were correct at the end of the procedure. Joseline Freeman Pac assisted due to lack of resident availability and was necessary for prepping, draping, retraction, wound closure defects, subQ and skin closure and was necessary for the case. I attest to the content of the Intraoperative Record and any orders documented therein. Any exceptions are noted below.
[2019-08-17] MEDS ORDERED: HEPARIN (PORCINE) 1000 UNIT/ML 10 ML (CATH LAB USE ONLY) ONE (13:47)
[2019-08-17] MEDS ORDERED: THROMBIN FOR SOLN 20000 UNIT KIT ONE (13:48)
[2019-08-17] MEDS ORDERED: BUPIVACAINE/EPINEPHRINE 0.5% MPF 1:200,000 10 ML VIAL ONE (13:48)
[2019-08-17] MEDS ORDERED: CEFAZOLIN 250 MG/ML 1 GM VIAL ONE (13:48)
[2019-08-17] MEDS ORDERED: GELATIN SPONGE SZ 100 ONE (13:48)
[2019-08-17] MEDS ORDERED: LIDOCAINE HCL 1% 20 ML VIAL ONE (13:48)
[2019-08-17] MEDS ORDERED: ETOMIDATE 2 MG/ML 20 ML VIAL IV ONE (14:07)
[2019-08-17] MEDS ORDERED: SUCCINYLCHOLINE 100MG/5ML SYR ONE (14:07)
[2019-08-17] MEDS ORDERED: CISATRACURIUM BESYLATE IV SOLN 2 MG/ML 10 ML VIAL IV ONE (14:07)
[2019-08-17] MEDS ORDERED: SENNA 8.6 MG TAB PO PRN (14:17)
[2019-08-17] MEDS ORDERED: FLUTICASONE PROPIONATE NA SPR 16 GM BTL PRN (14:17)
[2019-08-17] MEDS ORDERED: POLYETHYLENE (MIRALAX) 17 GM PACK PO PRN (14:17)
[2019-08-17] MEDS ORDERED: ALBUTEROL HFA 8 GM INHALER INH PRN (14:17)
[2019-08-17] MEDS ORDERED: MoRPHine SULFATE 4 MG/ML 1 ML CARP\\VIAL IV PRN (14:17)
[2019-08-17] MEDS ORDERED: clonazePAM 0.5 MG TAB PO PRN (14:17)
[2019-08-17] MEDS ORDERED: SODIUM CHLORIDE 0.9% 1000ML 1,000 ML IV SCH (14:17)
[2019-08-17] MEDS ORDERED: OXYCODONE/ACETAMINOPHEN 5mg/325mg TAB PO PRN (14:17)
[2019-08-17] MEDS ORDERED: NITROGLYCERIN 0.3 MG/1 TAB 100 TAB BTL SL PRN (14:17)
--- NOTE | 2019-08-17 14:25 | Post Operative Brief Note ---
Immediate Post Op Note v1 Date of Surgery August 17, 2019 Pre & Post Diagnosis Operation Date: 08/17/19 09:50 Pre-Op Diagnosis: Acute cerebrovascular accident post endarterectomy Post-Op Diagnosis: Acute cerebrovascular accident post endarterectomy I identified the patient and participated in the time-out.: Yes Procedure Operation Date: 08/17/19 09:50 Actual Procedures; Left neck exploration with Cerberal and carotid arteriogram(Left) - Damien Jennings MD Surgeon Damien Jennings MD Document Control Supervisor none Estimated Blood Loss 0 Findings Consistent with Post-Op Diagnosis Anesthesia Type General Complications none Disposition Accompanied Patient To Recovery: No Disposition: Surgical ICU
[2019-08-17] MEDS ORDERED: OPTIRAY 320 125ml IV PRN (14:44)
--- NOTE | 2019-08-17 14:51 | CT Scan Report ---
CT head/brain wo con CT DOSE: HISTORY: Mental status change Acute CVA TECHNIQUE: Multiaxial CT images of the head were performed without the use of intravenous contrast. A dose lowering technique was utilized adhering to the principles of ALARA. Comparison: 08/17/2019 Findings: The paranasal sinuses and mastoid air cells are clear. Old left posterior parietal infarct. Mild age-related atrophy and chronic small vessel change. No evidence for acute intracranial hemorrhage. No midline shift. Impression: No acute intracranial abnormality. Old left cerebral infarct. ACT 112: Negative or not required by law. The above report was generated using voice recognition software. It may contain grammatical, syntax or spelling errors. Electronically signed by: Armen Fierro M.D. 08/17/2019 2:49 PM
--- NOTE | 2019-08-17 14:53 | CT Scan Report ---
HEAD CTA HISTORY: Post carotid endarterectomy. Stroke symptoms. TECHNIQUE: Multiaxial CT images of the head were performed both before and after the intravenous admi nistration of contrast to evaluate the major cerebral vessels. Maximum intensity projection images we re also obtained. A dose lowering technique was utilized adhering to the principles of ALARA. COMPARISON: Head CT 8 07/09/2019. FINDINGS: There is no mass, hematoma, midline shift, or acute infarct. Visualized intracranial international affairs vice president al carotid arteries, distal vertebral arteries, and basilar artery are widely patent. There is no sig nificant stenosis, occlusion, or aneurysm seen within the bilateral ACAs, MCAs, or manager portable. [id number] rate calcified plaque within the bilateral carotid siphons. Old left parietal infarct is again noted. The major dural venous sinuses appear patent. An endotracheal tube is partially visualized. Small am ount of soft tissue gas within the left neck consistent with postoperative change. IMPRESSION: No significant stenosis, occlusion, or aneurysm within the [place] of [place]. ACT 112: Negative or not required by law. Electronically signed by: James Wilson M.D. 08/17/2019 2:52 PM
--- NOTE | 2019-08-17 14:57 | CT Scan Report ---
CT angio neck with con HISTORY: Mental status change cva post carotid endart TECHNIQUE: Multiaxial CT angiography of the neck was performed IV contrast: 100 cc All measurements were calculated based on NASCET criteria. Maximum intensity projection images were also obtained. A dose lowering technique was utilized adhering to the principles of ALARA. COMPARISON STUDY: 07/09/2019 FINDINGS: The aortic arch and proximal great vessels are widely patent. Evidence for an interval lef t sided endarterectomy. Expected soft tissue postoperative change. Small amount of subcutaneous air w ithin the left neck again considered postoperative. High degree of stenotic change previously described is no longer present. Moderate plaque formation p ersists. All remaining components of the study are unchanged compared to the prior exam. IMPRESSION: 1. Interval left endarterectomy. 2. The left carotid system is now patent with no significant stenosis. 3. Expected postoperative soft tissue change as described. 4. No change of the right carotid system compared to the prior exam. ACT 112: Negative or not required by law. The above report was generated using voice recognition software. It may contain grammatical, syntax or spelling errors. Electronically signed by: Armen Fierro M.D. 08/17/2019 2:56 PM
--- NOTE | 2019-08-17 15:14 | Anesthesiology Progress Note ---
Date of Service August 17, 2019 Anesthesia Post Procedure Vital Signs Vital Signs: Temp Pulse Resp BP Pulse Ox 08/17/19 15:03 62 20 157/46 H 96 08/17/19 14:57 62 20 147/51 H 96 08/17/19 14:52 62 24 132/97 98 08/17/19 14:46 37 C 78 16 156/66 H 100 08/17/19 07:48 36.5 C 89 18 178/76 H 92 Transfer of Care Handoff Completed per policy Notes Mental Status: see notes below Nausea / Vomiting: adequately controlled Pain: adequately controlled Airway Patency, RR, SpO2: see Notes below BP & HR: stable & adequate Hydration State: stable & adequate Notes: End of case when extubated and waking , patient was not moving right side. Ultrasound doppler equivocal so we put the patient back to sleep so that Dr Jennings could do an angiogram. Following this we transported the patient with oxygen, ambu, and monitors to the CT scanner for a CT angiogram and we then took him to the ICU. He is beginning to wake again, and still is not moving his right extremities the way he is using the left. He is and has been hemodynamically stable, and his oxygen saturation has continually been 100% while intubated. Spoke with ICU doctor. BSG 174.
--- NOTE | 2019-08-17 15:18 | Critical Care Consultation ---
Date of Consultation August 17, 2019 Assessment & Plan (1) Stenosis of left internal carotid artery: Rick Carlson is a 69 yo M with PMH significant for ESRD on HD, CHF, HTN, CAD, pacemaker, COPD, GOUT, DMII, a fib, and TIA in past; admitted for L CEA, following the procedure and being extubated, had R sided weakness and inability to move those limbs. Neuro: - [facility] ICU: unable to assess due to reduced consciousness - after extubation in post-operative side, had R sided hemiplegia; at that time re-intubated - intra-operative angiogram did not visualize occlusions in L cerebral vessels - CT head did not demonstrate an acute intracranial abnormality - CTA Head did not demonstrate significant stenosis, occlusion, or aneurysm within the [place] - CTA Neck demonstrated left carotid system patent without significant stenosis - Systolic BP range 140-180 - 5mg IV Lopressor available Cardiac/Vascular: - patient with pacemaker in place for control of A. fib - prior to procedure was consistently V-paced - patient is currently still V-paced on telemetry Respiratory: - patient has COPD, supposed to be on BiPAP nightly at home, and O2 support throughout the day, but he does not utilize either - ABG: pH 7.36, pCO2 42.2 pO2 86 - currently extubated with NC, maintaining sats >90% - patient continuing to attempt to clear oral secretions on his own, scant oropharyngeal discharge suctioned GI/Nutrition: - NPO Renal/Lytes: - patient has ESRD, : - patient has urostomy over abdomen - still produces scant amount of urine despite ESRD ENDO: - T2DM on oral glipizide at home - holding home regimen - ICU hyperglycemia protocol HEME: - H&H ID: - given Cefazolin in post-operative period - no concerns for infectious disease at this point Lines/IV Access: - L radial arterial line - peripheral IVs DVT Prophylaxis: - SCDs (2) Stroke: (3) Pacemaker: (4) Hyperlipidemia: (5) GERD (gastroesophageal reflux disease): (6) Diabetes mellitus, type 2: (7) Chronic obstructive pulmonary disease: (8) Morbid obesity: (9) CHF (congestive heart failure): (10) ESRD (end stage renal disease): Supervising Physician Co-Signing Physician Notes Dr. Oates was resident physician during care of patient. I separately evaluated patient for rodriguez portions of the history and the exam. I was present during the critical portion of medical decision making, and I discussed the case with the resident. I generally agree with the findings and plan. Patient aggressively clearing throat. Attempted to redirect patient several times to minimize risk of irritating surgical site. This is complicated given short-term memory issues. We will continue to redirect asking for assistance with family present at bedside to minimize throat clearing. No evidence of hematoma formation or acute airway obstruction. History of Present Illness Attending Physician: Damien Jennings MD History of Present Illness Rick Carlson is a 69 yo M with PMH significant for ESRD on HD, CHF, HTN, CAD, pacemaker, COPD, GOUT, DMII, a fib, and TIA in past, admitted with stroke like symptoms in July and underwent a right CEA. He also has a severe Left ICA stenosis; admitted for L CEA, following the procedure and being extubated, had R sided weakness and inability to move those limbs. Pt continues to dialyze through permcath, just started using his RUE AVF for HD via single needle but it is not functioning. Allergies Allergy/AdvReac Type Severity Reaction Status Date / Time promethazine Allergy Intermediate UNCONTROLLED Verified 08/17/19 07:52 MUSCLE MOVEMENTS codeine AdvReac Intermediate "trips me Verified 08/17/19 07:52 out" Home Medications Home Medications Medication Instructions Recorded Confirmed Type allopurinol 300 mg PO QAM 02/05/18 08/17/19 History aspirin [Aspir-81] 81 mg PO QAM 02/05/18 08/17/19 History atorvastatin 80 mg PO HS 02/05/18 08/17/19 History loratadine [Claritin] 10 mg PO QAM 02/05/18 08/17/19 History melatonin 10 mg PO HS 02/05/18 08/17/19 History nitroglycerin 0.3 mg SUBLINGUAL DIRECTED PRN 02/05/18 08/17/19 History pantoprazole 40 mg PO QAM 02/05/18 08/17/19 History PreserVision AREDS-2 1 tab PO QAM 02/16/18 08/17/19 History cholecalciferol (vitamin D3) 2,000 unit PO QAM 02/16/18 08/17/19 History [Vitamin D3] cyanocobalamin (vitamin B-12) 1,000 mcg PO QAM 02/16/18 08/17/19 History [Vitamin B-12] hydralazine 25 mg PO TID 05/15/18 08/17/19 History thiamine HCl (vitamin B1) 100 mg 100 mg PO QAM tab 12/22/18 08/17/19 History tablet albuterol sulfate 2 puff INHALATION Q4H PRN 02/12/19 08/17/19 History budesonide-formoterol [Symbicort] 2 puff INHALATION BID 02/12/19 08/17/19 History fluticasone propionate 1 spray INTRANASAL DAILY PRN 02/12/19 08/17/19 History isosorbide mononitrate 30 mg PO QAM 02/12/19 08/17/19 History tiotropium bromide [Spiriva with 1 cap INHALATION QAM 02/13/19 08/17/19 History HandiHaler] glipizide 5 mg PO QAM 04/22/19 08/17/19 History clonazepam [Klonopin] 0.5 mg PO DAILY PRN 05/03/19 08/17/19 History ascorbic acid (vitamin C) 1,000 mg PO QAM 07/09/19 08/17/19 History sevelamer carbonate [Renvela] 800 mg PO TIDM 07/09/19 08/17/19 History venlafaxine 75 mg PO QAM 07/09/19 08/17/19 History warfarin 2.5 mg PO DAILY #0 tab 07/17/19 08/17/19 Rx hydroxyzine HCl 25 mg PO HS 08/04/19 08/17/19 History polyethylene glycol 3350 [Miralax] 17 g PO BID PRN 08/04/19 08/17/19 History sennosides [senna] 17.2 mg PO DAILY PRN 08/04/19 08/17/19 History trazodone 150 mg PO HS 08/04/19 08/17/19 History enoxaparin [Lovenox] 80 mg SUBCUT DAILY 08/17/19 08/17/19 History metoprolol tartrate 50 mg PO BID 08/17/19 08/17/19 History Patient History Medical History Anemia Anxiety Atrial fibrillation DX 2006 - NO HX CARDIOVERSION Cancer HX OF BLADDER HX OF PROSTATE Carotid stenosis, bilateral CHF (congestive heart failure) Chronic back pain Chronic obstructive pulmonary disease on 2 L O2 prn, 3L HS with BiPAP (not using BiPAP currently due to mask issues) Coronary arteriosclerosis S/P BMS to RCA November 2012 Depression Diabetes mellitus, type 2 NIDDM Dialysis patient MON, WED AND FRI (RIGHT SHOULDER AREA CURRENT ACCESS) ESRD (end stage renal disease) on dialysis GERD (gastroesophageal reflux disease) Gout continue allopurinol for prophylaxis Hiatal hernia History of kidney stones Hyperlipidemia Hypertension Morbid obesity Osteoarthritis Pacemaker 2011 IMPLANTED FOR A-FIB Peripheral neuropathy Post traumatic stress disorder Presence of urostomy Sleep apnea BIPAP Stroke NOVEMBER 2017- SLURRED SPEECH/LEFT FOOT WEAKNESS- CT SCAN SHOWED EVIDENCE OF AN OLD STROKE- ? EXACT DATE RESIDUAL LEFT SIDED WEAKNESS TIA (transient ischemic attack) 07/09/2019 during hospital admission- did not receive thrombolytic therapy- dysarthria and left arm weakness improved. Unable to obtain MRI due to pacemaker Surgical History History of biopsy of bladder (Resolved) History of cardiac cath (Resolved) STENT PLACED 2011 History of carotid endarterectomy right carotid 07/13/[address] Jennings History of cataract surgery (Resolved) RT/LEFT History of cholecystectomy (Resolved) History of colonoscopy History of laminectomy (Resolved) LUMBAR History of prostatectomy (Resolved) History of tooth extraction (Resolved) History of urologic surgery FOR KIDNEY STONE History of urostomy BLADDER REMOVED D/T CANCER STOMA REVISED History of vascular access device right femoral line in currently. Pericardial disease (Resolved) PERICARDIAL WINDOW/MICROSCOPIC ([facility]) 2013 S/P arteriovenous (AV) fistula creation right arm (05/2019) Family History Other Family history non-contributory Denies family history of Stroke Social History Preferred Language: Faroese Communication Ability: Impaired Communication Ability Comment: Need to re-assess with evolution of process Statistical Developer Required: No Beliefs That Will Affect Care: None marital status: Current Living Situation: Spouse Current Living Situation Comment: pt and his live with their dtr current occupational status: retired Other Information That Helps Us Care for You: No Feels Safe at Home: Yes Safety Concerns: Feels Safe At This Time Smoking Status: Former smoker Tobacco Type: cigarettes ; Do You Dip or Chew Tobacco: No ; Smoking End Date: 06/2000 ; Second Hand Exposure: No ; Tobacco Cessation Education Requested by Patient: No Hx Alcohol Use: No Hx Substance Use: No Review of Systems Review of Systems: Unobtainable due to reduced consciousness Physical Exam Constitutional: WD/WN, vitals as above + morbidly obese Eyes: PERRL and normal accommodation ENMT: external ear and nose normal, oropharynx normal Neck: old healed incision from R carotid endartectomy, left neck with surgical dressing over intact incision Respiratory: normal respiratory effort Auscultation: no crackles, no rales, no rhonchi and no wheezes Cardiovascular: Rate/Rhythm: regular rate and regular rhythm Heart Sounds: normal S1 and normal S2; no gallop, no murmur and no cardiac rub Vessels: no JVD Extremities: no pedal edema AV fistula in R antecubital fossa; R distal femoral dialysis catheter Gastrointestinal (Abdomen): normal bowel sounds, soft, nontender, no hepatosplenomegaly Musculoskeletal: Head/Neck/Chest: normocephalic and head atraumatic Extrem ities: + abnormal strength (5/5 strength of LUE & LLE; 0/5 strength of RUE & RLE) Skin: no rashes, warm and dry Neurologic: awake and + confused Motor/Sensory: + abnormal movement (0/5 of RUE & RLE) Cranial Nerves: EOM intact bilaterally, tongue midline and able to rotate head bilaterally Psychiatric: Orientation: alert; + not oriented to person, + not oriented to place and + not oriented to time Genitourinary: urostomy bag present over mid-abdomen with urine present Lymphatic: no cervical or axillary lymphadenopathy Results & Data Vital Signs (Past 12 Hours) Vital Signs Temp Pulse Pulse Resp BP Pulse Ox 08/17/19 15:12 37.1 C 63 18 169/60 H 100 08/17/19 15:07 66 24 154/76 H 100 08/17/19 15:06 72 20 100 08/17/19 15:03 62 20 157/46 H 96 08/17/19 14:57 62 20 147/51 H 96 08/17/19 14:52 62 24 132/97 98 08/17/19 14:46 37 C 78 16 156/66 H 100 08/17/19 07:48 36.5 C 89 18 178/76 H 92 Laboratory Results 08/17/19 08/17/19 08/17/19 Range/Units 17:46 16:29 15:08 POC Hgb 8.5 L (14.0-18.0) g/dl POC Hct 25 L (42-52) % PT (9.0-12.0) Seconds INR (0.9-1.1) APTT (21.0-31.0) Seconds PTT Ratio Sample Site Art Line POC pH 7.37 (7.35-7.45) POC pCO2 42 (35-46) mmHg POC pO2 86 (80-95) mmHg POC HCO3 24 (19-24) mita/L POC Total CO2 26 (24-31) mmol/L POC Base Excess -1.0 (-9-1.8) mita/L ABG pH (Temp Correct) 7.369 (7.35-7.45) ABG pCO2 (Temp Corrct 42 (35-46) mmHg POC ABG pO2 at Pt Temp 86 [place] Test Pass POC Sodium 138 (135-144) mmol/L Sodium (136-145) mmol/L POC Potassium 5.0 (3.3-5.0) mmol/L Potassium (3.5-5.1) mmol/L Chloride (98-107) mmol/L Carbon Dioxide (21-32) mmol/L Anion Gap (3-11) BUN (7-18) mg/dl Creatinine (0.6-1.4) mg/dl Est Cr Clr Drug Dosing ml/min Est GFR ( Amer) Est GFR (Non-Af Amer) BUN/Creatinine Ratio (10-20) Glucose (70-99) mg/dl POC Glucose 156 H 174 H (70-99) mg/dl Calcium (8.5-10.1) mg/dl Nasal Screen MRSA (PCR) Blood Type Antibody Screen 08/17/19 08/17/19 08/17/19 Range/Units 14:55 07:48 07:37 POC Hgb (14.0-18.0) g/dl POC Hct (42-52) % PT 11.6 (9.0-12.0) Seconds INR 1.1 (0.9-1.1) APTT 28.3 (21.0-31.0) Seconds PTT Ratio 1.0 Sample Site POC pH (7.35-7.45) POC pCO2 (35-46) mmHg POC pO2 (80-95) mmHg POC HCO3 (19-24) mita/L POC Total CO2 (24-31) mmol/L POC Base Excess (-9-1.8) mita/L ABG pH (Temp Correct) (7.35-7.45) ABG pCO2 (Temp Corrct (35-46) mmHg POC ABG pO2 at Pt Temp [place] Test POC Sodium (135-144) mmol/L Sodium (136-145) mmol/L POC Potassium (3.3-5.0) mmol/L Potassium (3.5-5.1) mmol/L Chloride (98-107) mmol/L Carbon Dioxide (21-32) mmol/L Anion Gap (3-11) BUN (7-18) mg/dl Creatinine (0.6-1.4) mg/dl Est Cr Clr Drug Dosing ml/min Est GFR ( Amer) Est GFR (Non-Af Amer) BUN/Creatinine Ratio (10-20) Glucose (70-99) mg/dl POC Glucose 116 H (70-99) mg/dl Calcium (8.5-10.1) mg/dl Nasal Screen MRSA (PCR) Pending Blood Type Antibody Screen 08/17/19 08/17/19 Range/Units 07:37 07:37 POC Hgb (14.0-18.0) g/dl POC Hct (42-52) % PT (9.0-12.0) Seconds INR (0.9-1.1) APTT (21.0-31.0) Seconds PTT Ratio Sample Site POC pH (7.35-7.45) POC pCO2 (35-46) mmHg POC pO2 (80-95) mmHg POC HCO3 (19-24) mita/L POC Total CO2 (24-31) mmol/L POC Base Excess (-9-1.8) mita/L ABG pH (Temp Correct) (7.35-7.45) ABG pCO2 (Temp Corrct (35-46) mmHg POC ABG pO2 at Pt Temp [place] Test POC Sodium (135-144) mmol/L Sodium 141 (136-145) mmol/L POC Potassium (3.3-5.0) mmol/L Potassium 3.8 (3.5-5.1) mmol/L Chloride 104 (98-107) mmol/L Carbon Dioxide 31 (21-32) mmol/L Anion Gap 6.0 (3-11) BUN 16 (7-18) mg/dl Creatinine 4.42 H (0.6-1.4) mg/dl Est Cr Clr Drug Dosing 19.3 ml/min Est GFR ( Amer) 14.5 Est GFR (Non-Af Amer) 12.5 BUN/Creatinine Ratio 3.6 L (10-20) Glucose 113 H (70-99) mg/dl POC Glucose (70-99) mg/dl Calcium 8.6 (8.5-10.1) mg/dl Nasal Screen MRSA (PCR) Blood Type O Negative Antibody Screen NEGATIVE Medications Administered Current Inpatient Medications Albuterol (Ventolin Hfa) 2 puffs INH Q4H PRN PRN Reason: sob Stop: 09/16/19 14:16 Allopurinol (Zyloprim) 300 mg PO QAM [facility] Stop: 09/17/19 08:59 Ascorbic Acid (Vitamin C) 1,000 mg PO QAM [facility] Stop: 09/17/19 08:59 Aspirin (Ecotrin Ectab) 81 mg PO QAM [facility] Stop: 09/17/19 08:59 Atorvastatin Calcium (Lipitor) 80 mg PO HS [facility] Stop: 09/16/19 20:59 Clonazepam (Klonopin) 0.5 mg PO DAILY PRN PRN Reason: Anxiety Stop: 09/16/19 14:16 Cyanocobalamin (Vitamin B-12) 1,000 mcg PO QAM [facility] Stop: 09/17/19 08:59 Enoxaparin Sodium (Lovenox) 80 mg SQ DAILY [facility] Stop: 09/17/19 08:59 Fluticasone Propionate (Flonase) 1 sprays NA DAILY PRN PRN Reason: Congestion Stop: 09/16/19 14:16 Fluticasone/Vilanterol (Breo Ellipta 100/25 Mcg Inh) 1 puffs INH DAILY [facility] Stop: 09/17/19 08:59 Glipizide (Glucotrol) 5 mg PO DAILYBB [facility] Stop: 09/17/19 06:29 Hydralazine HCl (Apresoline) 25 mg PO TID [facility] Stop: 09/16/19 14:59 Last Admin: 08/17/19 15:58 Dose: Not Given Documented by: Hydroxyzine HCl (Vistaril) 25 mg PO HS [facility] Stop: 09/16/19 20:59 Sodium Chloride (Nss 1000ml) 1,000 mls @ 15 mls/hr IV .Q24H [facility] Stop: 08/18/19 05:59 Last Infusion: 08/17/19 09:47 Dose: Infused Documented by: Cefazolin Sodium (Ancef 2000mg) 2,000 mg in 15 mls @ 3.75 mls/min IV Q8H [facility]; Protocol Stop: 08/18/19 01:03 Last Admin: 08/17/19 16:42 Dose: 3.75 mls/min Documented by: Sodium Chloride (Nss 1000ml) 1,000 mls @ 125 mls/hr IV .Q8H [facility] Stop: 09/16/19 14:16 Last Admin: 08/17/19 15:57 Dose: 125 mls/hr Documented by: Ioversol (Optiray 320 125ml) 118 ml IV ONCE PRN PRN Reason: Interaction Checking Stop: 08/21/19 14:43 Last Admin: 08/17/19 14:45 Dose: 118 ml Documented by: Isosorbide Mononitrate (Imdur Extended Rel) [facility] Stop: 09/17/19 08:59 Loratadine (Claritin) 10 mg PO QAM [facility] Stop: 09/17/19 08:59 Metoprolol Tartrate (Lopressor) 50 mg PO BID [facility] Stop: 09/16/19 20:59 Metoprolol Tartrate (Lopressor) 5 mg IV Q4H PRN PRN Reason: systolic BP >180 Stop: 09/16/19 16:18 Miscellaneous (Icu Protocol For Hyperglycemia) 1 ea N/A [facility] Stop: 08/20/19 08:59 Morphine Sulfate (Morphine Sulfate) 1 - 4 mg IV Q2H PRN PRN Reason: Severe Pain Stop: 08/31/19 14:16 Multivitamins/Minerals (Multivitamin W/ Minerals Tab) 1 tab [facility] Stop: 09/17/19 08:59 Nitroglycerin (Nitrostat) 0.3 mg SL UD PRN PRN Reason: Chest Pain Stop: 09/16/19 14:16 Oxycodone/Acetaminophen (Percocet 5mg/325mg) 1 - 2 tab PO Q4H PRN PRN Reason: Moderate Pain Stop: 08/31/19 14:16 Pantoprazole Sodium (Protonix) 40 mg PO QAM [facility] Stop: 09/17/19 08:59 Polyethylene Glycol (Miralax Powder Packet) 17 gm PO BID PRN PRN Reason: Constipation Stop: 09/16/19 14:16 Sennosides (Senokot) 17.2 mg PO DAILY PRN PRN Reason: Constipation Stop: 09/16/19 14:16 Sevelamer HCl (Renagel) 800 mg PO TIDM [facility] Stop: 09/16/19 16:59 Last Admin: 08/17/19 15:58 Dose: Not Given Documented by: Thiamine HCl (Vitamin B-1) 100 mg PO QAM [facility] Stop: 09/17/19 08:59 Trazodone HCl (Desyrel) 150 mg PO [facility] Stop: 09/16/19 20:59 Umeclidinium Susan (Incruse Ellipta) 1 puffs INH [facility] Stop: 09/17/19 08:59 Venlafaxine HCl (Effexor Extended Release) 75 mg [facility] Stop: 09/17/19 08:59 Vitamin D (Vitamin D3) 2,000 units PO QAM [facility] Stop: 09/17/19 08:59 Warfarin Sodium (Coumadin) 5 mg PO DAILY@1600 [facility] Stop: 09/17/19 15:59 Resident Activity Tracking Resident Involvement: Resident Care Provided Care Provided: Adult Hospital Medicine (1) CHF (congestive heart failure) Heart failure chronicity: unspecified Heart failure type: unspecified Qualified Code(s): I50.9 - Heart failure, unspecified
[2019-08-17] MEDS: SEVELAMER HCL 800 MG TABLET PO SCH (15:58)
[2019-08-17] MEDS ORDERED: METOPROLOL TARTRATE 1 MG/ML VIAL IV PRN (16:19)
[2019-08-17 16:40] LABS: iSTAT Allen Test Pass; iSTAT Art Bld Gas pCO2 Correct 42 mmHg (35-46); iSTAT Art Bld Gas pH Corrected 7.369 (7.35-7.45); iSTAT Arterial Blood Gas HCO3 24 meg/L (19-24); iSTAT Arterial Blood Gas pCO2 42 mmHg (35-46); iSTAT Arterial Blood Gas pH 7.37 (7.35-7.45); iSTAT Arterial Blood Gas pO2 86 mmHg (80-95); iSTAT Arterial Blood Gas pO2 C 86; iSTAT Carbon Dioxide 26 mmol/L (24-31); iSTAT Hematocrit 25 % (42-52); iSTAT Hemoglobin 8.5 g/dl (14.0-18.0); iSTAT Site Art Line; iSTAT Sodium 138 mmol/L (135-144)
[2019-08-17] MEDS: CEFAZOLIN 2000MG 2,000 MG/15 ML SYR IV SCH (16:42)
[2019-08-17] MEDS ORDERED: LORazepam 2 MG/4 ML VIAL ONE (19:32)
[2019-08-17] MEDS ORDERED: HydrALAZINE HCL 20 MG/ML VIAL ONE (19:36)
[2019-08-17] MEDS ORDERED: HydrALAZINE HCL 20 MG/ML VIAL IV STA (19:39)
--- NOTE | 2019-08-17 20:12 | Communication Note ---
Date of Service: August 17, 2019 At approximately 1925 I was called to the bedside by the primary RN with concern for seizure activity. On arrival to the bedside, patient appeared to have monoclonal jerks of the left upper extremity and left facial twitching. At that time he was completely nonverbal which was a change from previous dysarthria when I had seen the patient. The symptoms lasted for approximately 1 minute and there was no intervention during that timeframe. Patient is currently maintaining his airway, will hold reintubation for now. Dr. Jernigan and Dr. Jennings were contacted with this event. New blood pressure parameters for SBP less than 140 as patient was hypertensive at the time and concern for hyperperfusion. Will load with Keppra and start twice daily. EEG in the a.m., consult to neurology. 08/17 1999: Patient's speech has returned back to previous dysarthria. No change in neurological status currently from previous neurological exam prior to seizu re. I have personally spent 30 minutes of critical care time in the direct management of this patient. This is a life/limb threatening event. This includes time spent evaluating patient, direct bedside care, chart review, placing orders, interpretation of diagnostic studies, discussion with consultants, patient, and family members, as well as other required patient management activities. This time is exclusive of all separately billable procedures, and teaching time and separate from and in addition to any other critical care service time. Thank you for allowing us to participate in the care of this patient. Please refer to my attending physician's documentation for any further recommendations. I was notified of the events listed above via telephone. I concur with the documentation. Coding Level of Care Code None
[2019-08-17] MEDS: METOPROLOL TARTRATE 50 MG TAB PO SCH (20:15)
[2019-08-17] MEDS: methylPREDNISolone 40 MG in SYRINGE 0 ML IV SCH (20:16)
[2019-08-17] MEDS ORDERED: TRAZODONE HCL 50 MG TAB PO SCH (21:00)
[2019-08-17] MEDS ORDERED: ATORVASTATIN 40 MG TAB PO SCH (21:00)
[2019-08-17] MEDS: LABETALOL HCL IV 5 MG/ML 20ML IV PRN (22:14)
[2019-08-18] MEDS: HydrALAZINE HCL 20 MG/ML VIAL IV PRN ×5 (00:05→20:21)
[2019-08-18] MEDS: CEFAZOLIN 2000MG 2,000 MG/15 ML SYR IV SCH (00:05)
[2019-08-18] MEDS: LABETALOL HCL IV 5 MG/ML 20ML IV PRN ×4 (04:08→18:00)
[2019-08-18 04:48] LABS: Hematocrit (blood only) 32.1 % (42-52); Hemoglobin 10.3 g/dL (14.0-18.0); Immature Granulocytes # (auto) 0.04 K/uL (0.00-0.02); Immature Granulocytes % (auto) 0.5 %; Lymphocytes # (auto) 0.33 K/uL (1.2-3.4); Lymphocytes % (auto) 3.8 %; Mean Corpuscular Hemoglobin 32.9 pg (25-34); Mean Corpuscular Hgb Conc 32.1 g/dL (32-36); Mean Corpuscular Volume 102.6 fL (80-100); Mean Platelet Volume 11.6 fL (7.4-10.4); Monocytes # (auto) 0.18 K/uL (0.11-0.59); Monocytes % (auto) 2.1 %; Neutrophils # (auto) 8.06 K/uL (1.4-6.5); Neutrophils % (auto) 93.6 %; Nucleated RBC # (auto) 0.02 K/uL (0-0); Nucleated RBC % (auto) 0.2 %; Platelet Count 163 K/uL (130-400); RDW Coefficient of Variation 16.7 % (11.5-14.5); RDW Standard Deviation 62.4 fL (36.4-46.3); Red Blood Count 3.13 M/uL (4.7-6.1); White Blood Count 8.61 K/uL (4.8-10.8)
[2019-08-18 05:13] LABS: INR 1.1 (0.9-1.1); Prothrombin Time 11.6 Seconds (9.0-12.0)
[2019-08-18 05:21] LABS: BUN Creatinine Ratio 4.4 (10-20); Calcium 8.6 mg/dl (8.5-10.1); Creatinine Clr Calc Pharmacy 13.6 ml/min; Est GFR (African American) 9.5; Est GFR (Non-African American) 8.2; Potassium 5.1 mmol/L (3.5-5.1)
[2019-08-18] MEDS ORDERED: GLUCAGON FOR INJ 1 MG VIAL SQ PRN (05:29)
[2019-08-18] MEDS ORDERED: GLUCOSE 40% GEL 15 GM TUBE PO PRN (05:29)
[2019-08-18] MEDS ORDERED: GLUCOSE 10 TABS/TUBE PO PRN (05:29)
[2019-08-18] MEDS ORDERED: CARBOHYDRATES FOR HYPOGLYCEMIA PO PRN (05:29)
[2019-08-18] MEDS ORDERED: DEXTROSE 50% 50 ML SYRINGE IV PRN (05:29)
[2019-08-18] MEDS ORDERED: Nursing to Pharmacy Communication ONE (05:36)
[2019-08-18] MEDS ORDERED: PHARMACY GLYCEMIC MGMT CONSULT PRN (05:40)
[2019-08-18] MEDS ORDERED: ONDANSETRON INJ 2 MG/ML 2 ML VIAL IV PRN (05:50)
[2019-08-18] MEDS ORDERED: ONDANSETRON INJ 2 MG/ML 2 ML VIAL ONE (05:50)
[2019-08-18] MEDS: INSULIN ASPART 100 UNITS/ML 3 ML PEN SC SCH ×4 (05:56→23:12)
[2019-08-18] MEDS ORDERED: FAMOTIDINE 20 MG in SYRINGE 3 ML IV ONE (06:00)
[2019-08-18] MEDS ORDERED: glipiZIDE 5 MG TAB PO SCH (06:30)
--- NOTE | 2019-08-18 06:36 | Critical Care Progress Note ---
Date of Service August 18, 2019 Assessment & Plan (1) Stenosis of left internal carotid artery: Rick Carlson is a 69 yo M with PMH significant for ESRD on HD, CHF, HTN, CAD, pacemaker, COPD, GOUT, DMII, a fib, and TIA in past; admitted for L CEA, following the procedure and being extubated, had R sided weakness and inability to move those limbs. Neuro: - [facility] ICU: unable to assess due to cognitive status, only responds in grunts and nods or shakes of the head - after extubation in post-operative side, had R sided hemiplegia - intra-operative Fluoro did not visualize occlusions in L cerebral vessels - CT head did not demonstrate an acute intracranial abnormality - CTA Head did not demonstrate significant stenosis, occlusion, or aneurysm within the [place] of [place] - CTA Neck demonstrated left carotid system patent without significant stenosis - goal Systolic BP<140 - Neurology consulted - repeat CT head pending - EEG per report demonstrated high amplitude focal slowing overlying the left posterior head regions suggesting an underlying structural or functional abnormality. There is no evidence of seizure activity at this time - PT/OT consulted Cardiac/Vascular: - patient with pacemaker in place for control of A. fib - prior to procedure was consistently V-paced - patient is currently still V-paced on telemetry - goal for systolic BP<140; started on 5mg Metoprolol IV Q6h BON[facility]ACIO - for systolic >140 Labetalol 10mg Q2h PRN; Hydralazine 10mg IV Q4h PRN available Respiratory: - patient has COPD, supposed to be on BiPAP nightly at home, and O2 support throughout the day, but he does not utilize either - 08/16 ABG: pH 7.36, pCO2 42.2 pO2 86 - maintaining sats >90% with 2L NC - patient continuing to attempt to clear oral secretions on his own, scant thick oropharyngeal discharge suctioned GI/Nutrition: - NPO - Speech eval: remain NPO, recommended video swallow study Renal/Lytes: - patient has ESRD, gets HD MWF - Hemodialysis today 1.5L off - Nephrology consulted : - patient has urostomy over abdomen - still produces scant amount of urine despite ESRD ENDO: - T2DM on oral glipizide at home - holding home regimen - ICU hyperglycemia protocol HEME: - H&H stable as compared to previous hospitalizations ID: - given Cefazolin in post-operative period - no concerns for infectious disease at this point Lines/IV Access: - peripheral IVs - R femoral permacath DVT Prophylaxis: - Heparin SQ Admission and Anticipated Discharge Date Admission Date: August 17, 2019 Supervising Physician Co-Signing Physician Notes Dr. Oates was resident physician during care of patient. I separately evaluated patient for rodriguez portions of the history and the exam. I was present during the critical portion of medical decision making, and I discussed the case with the resident. I generally agree with the findings and plan. Reviewed neurology recommendations. I had an extensive discussion with the patient's and daughter via telephone, they felt that the patient would not want heroic measures undertaken in event of cardiac arrest given the significant comorbidities: End-stage renal disease, right hand dominance and recent brain injury, baseline short-term memory loss, accordingly I have changed the patient's CODE STATUS to DNR and DNI in event of cardiac arrest. Patient tolerated hemodialysis today. Subjective Overnight continued to attempt to clear his throat without producing sputum; at approximately 1930 had seizure-like activity with decreased verbal response; this has improved as of this morning however he continues to attempt to clear his throat. Is able to confirm that he understands what is being said, but generally only responds in grunts and nodding or shaking of his head. Review of Systems Review of Systems: Unobtainable due to cognitive status Physical Exam Constitutional: WD/WN, vitals as above + morbidly obese Eyes: PERRL and normal accommodation ENMT: external ear and nose normal, oropharynx normal Respiratory: normal respiratory effort Auscultation: no crackles, no rales, no rhonchi and no wheezes Cardiovascular: Rate/Rhythm: regular rate and regular rhythm Heart Sounds: normal S1 and normal S2; no gallop, no murmur and no cardiac rub Vessels: no JVD Extremities: no pedal edema Gastrointestinal (Abdomen): normal bowel sounds, soft, nontender, no hepatosplenomegaly Musculoskeletal: Head/Neck/Chest: normocephalic and head atraumatic 5/5 strength of LUE & LLE; 2/5 strength of RUE & RLE withdrawing to pain at both knee and elbow Skin: no rashes, warm and dry Neurologic: awake and + confused Motor/Sensory: + abnormal movement (2/5 of RUE & RLE) Cranial Nerves: EOM intact bilaterally, tongue midline and able to rotate head bilaterally Psychiatric: Orientation: alert; + not oriented to person, + not oriented to place and + not oriented to time Lymphatic: no cervical or axillary lymphadenopathy Results & Data ([facility]) Vital Signs (Past 12 Hours) Vital Signs Temp Pulse Resp BP Pulse Ox 08/18/19 06:00 60 16 97 08/18/19 05:56 60 17 155/58 H 99 08/18/19 05:30 60 26 H 100 08/18/19 05:00 60 22 95 08/18/19 04:55 60 23 104/45 L 95 08/18/19 03:54 61 17 159/64 H 96 08/18/19 03:48 37.1 C 08/18/19 03:30 62 18 93 08/18/19 03:00 62 15 97 08/18/19 02:55 60 14 162/53 H 98 08/18/19 02:30 61 24 95 08/18/19 02:00 60 23 96 08/18/19 01:55 60 13 136/59 L 96 08/18/19 01:30 60 16 95 08/18/19 01:00 60 14 97 08/18/19 00:55 64 12 161/41 H 98 08/18/19 00:30 67 18 98 08/18/19 00:02 63 18 169/59 H 98 08/18/19 00:00 37.1 C 69 18 100 08/17/19 23:55 65 20 163/100 H 100 08/17/19 23:30 60 14 96 08/17/19 23:24 60 21 125/40 L 95 08/17/19 23:06 60 08/17/19 23:00 60 20 96 08/17/19 22:54 60 17 125/40 L 91 08/17/19 22:53 60 18 122/39 L 93 08/17/19 22:39 62 21 159/53 H 96 08/17/19 22:30 71 18 95 08/17/19 22:15 69 22 100 08/17/19 22:08 63 13 163/51 H 97 08/17/19 22:00 81 24 100 08/17/19 21:54 62 18 175/52 H 97 08/17/19 21:45 64 27 H 97 08/17/19 21:39 69 22 145/98 H 100 08/17/19 21:30 60 24 99 08/17/19 21:23 60 27 H 156/43 H 100 08/17/19 21:15 60 16 100 08/17/19 21:08 60 16 133/37 L 99 08/17/19 21:00 60 14 98 08/17/19 20:53 60 24 122/36 L 93 08/17/19 20:45 60 21 97 08/17/19 20:39 61 21 98 08/17/19 20:38 62 19 106/31 L 98 08/17/19 20:23 60 17 112/32 L 98 08/17/19 20:22 60 22 100/49 L 98 08/17/19 20:00 37.1 C 08/17/19 19:54 65 16 177/44 H 98 08/17/19 19:52 168/81 H 98 08/17/19 19:45 65 20 08/17/19 19:30 65 14 08/17/19 19:15 60 17 94 08/17/19 19:05 60 15 167/98 H 08/17/19 19:00 60 14 95 Laboratory Results 08/18/19 08/18/19 08/18/19 Range/Units 05:53 04:28 04:28 WBC (4.8-10.8) K/uL RBC (4.7-6.1) M/uL Hgb (14.0-18.0) g/dL POC Hgb (14.0-18.0) g/dl Hct (42-52) % POC Hct (42-52) % MCV (80-100) fL MCH (25-34) pg MCHC (32-36) g/dL RDW Std Deviation (36.4-46.3) fL RDW Coeff of Dacia (11.5-14.5) % Plt Count (130-400) K/uL MPV (7.4-10.4) fL Immature Gran % (Auto) % Neut % (Auto) % Lymph % (Auto) % Barnes % (Auto) % Eos % (Auto) % Baso % (Auto) % Immature Gran # (Auto) (0.00-0.02) K/uL Neut # (Auto) (1.4-6.5) K/uL Lymph # (Auto) (1.2-3.4) K/uL Barnes # (Auto) (0.11-0.59) K/uL Eos # (Auto) (0-0.5) K/uL Baso # (Auto) (0-0.2) K/uL Absolute Nucleated RBC (0-0) K/uL Nucleated RBC % (auto) % PT 11.6 (9.0-12.0) Seconds INR 1.1 (0.9-1.1) APTT (21.0-31.0) Seconds PTT Ratio Sample Site POC pH (7.35-7.45) POC pCO2 (35-46) mmHg POC pO2 (80-95) mmHg POC HCO3 (19-24) mita/L POC Total CO2 (24-31) mmol/L POC Base Excess (-9-1.8) mita/L ABG pH (Temp Correct) (7.35-7.45) ABG pCO2 (Temp Corrct (35-46) mmHg POC ABG pO2 at Pt Temp [place] Test POC Sodium (135-144) mmol/L Sodium 137 (136-145) mmol/L POC Potassium (3.3-5.0) mmol/L Potassium 5.1 D (3.5-5.1) mmol/L Chloride 104 (98-107) mmol/L Carbon Dioxide 26 (21-32) mmol/L Anion Gap 7.0 (3-11) BUN 27 H D (7-18) mg/dl Creatinine 6.26 H* D (0.6-1.4) mg/dl Est Cr Clr Drug Dosing 13.6 ml/min Est GFR ( Amer) 9.5 Est GFR (Non-Af Amer) 8.2 BUN/Creatinine Ratio 4.4 L (10-20) Glucose 180 H (70-99) mg/dl POC Glucose 214 H (70-99) mg/dl Calcium 8.6 (8.5-10.1) mg/dl Nasal Screen MRSA (PCR) (Negative) Blood Type Antibody Screen 08/18/19 08/17/19 08/17/19 Range/Units 04:28 23:56 17:46 WBC 8.61 (4.8-10.8) K/uL RBC 3.13 L (4.7-6.1) M/uL Hgb 10.3 L (14.0-18.0) g/dL POC Hgb (14.0-18.0) g/dl Hct 32.1 L (42-52) % POC Hct (42-52) % MCV 102.6 H (80-100) fL MCH 32.9 (25-34) pg MCHC 32.1 (32-36) g/dL RDW Std Deviation 62.4 H (36.4-46.3) fL RDW Coeff of Dacia 16.7 H (11.5-14.5) % Plt Count 163 (130-400) K/uL MPV 11.6 H (7.4-10.4) fL Immature Gran % (Auto) 0.5 % Neut % (Auto) 93.6 % Lymph % (Auto) 3.8 % Barnes % (Auto) 2.1 % Eos % (Auto) 0.0 % Baso % (Auto) 0.0 % Immature Gran # (Auto) 0.04 H (0.00-0.02) K/uL Neut # (Auto) 8.06 H (1.4-6.5) K/uL Lymph # (Auto) 0.33 L (1.2-3.4) K/uL Barnes # (Auto) 0.18 (0.11-0.59) K/uL Eos # (Auto) 0.00 (0-0.5) K/uL Baso # (Auto) 0.00 (0-0.2) K/uL Absolute Nucleated RBC 0.02 H (0-0) K/uL Nucleated RBC % (auto) 0.2 % PT (9.0-12.0) Seconds INR (0.9-1.1) APTT (21.0-31.0) Seconds PTT Ratio Sample Site POC pH (7.35-7.45) POC pCO2 (35-46) mmHg POC pO2 (80-95) mmHg POC HCO3 (19-24) mita/L POC Total CO2 (24-31) mmol/L POC Base Excess (-9-1.8) mita/L ABG pH (Temp Correct) (7.35-7.45) ABG pCO2 (Temp Corrct (35-46) mmHg POC ABG pO2 at Pt Temp [place] Test POC Sodium (135-144) mmol/L Sodium (136-145) mmol/L POC Potassium (3.3-5.0) mmol/L Potassium (3.5-5.1) mmol/L Chloride (98-107) mmol/L Carbon Dioxide (21-32) mmol/L Anion Gap (3-11) BUN (7-18) mg/dl Creatinine (0.6-1.4) mg/dl Est Cr Clr Drug Dosing ml/min Est GFR ( Amer) Est GFR (Non-Af Amer) BUN/Creatinine Ratio (10-20) Glucose (70-99) mg/dl POC Glucose 189 H 156 H (70-99) mg/dl Calcium (8.5-10.1) mg/dl Nasal Screen MRSA (PCR) (Negative) Blood Type Antibody Screen 08/17/19 08/17/19 08/17/19 Range/Units 16:29 15:08 14:55 WBC (4.8-10.8) K/uL RBC (4.7-6.1) M/uL Hgb (14.0-18.0) g/dL POC Hgb 8.5 L (14.0-18.0) g/dl Hct (42-52) % POC Hct 25 L (42-52) % MCV (80-100) fL MCH (25-34) pg MCHC (32-36) g/dL RDW Std Deviation (36.4-46.3) fL RDW Coeff of Dacia (11.5-14.5) % Plt Count (130-400) K/uL MPV (7.4-10.4) fL Immature Gran % (Auto) % Neut % (Auto) % Lymph % (Auto) % Barnes % (Auto) % Eos % (Auto) % Baso % (Auto) % Immature Gran # (Auto) (0.00-0.02) K/uL Neut # (Auto) (1.4-6.5) K/uL Lymph # (Auto) (1.2-3.4) K/uL Barnes # (Auto) (0.11-0.59) K/uL Eos # (Auto) (0-0.5) K/uL Baso # (Auto) (0-0.2) K/uL Absolute Nucleated RBC (0-0) K/uL Nucleated RBC % (auto) % PT (9.0-12.0) Seconds INR (0.9-1.1) APTT (21.0-31.0) Seconds PTT Ratio Sample Site Art Line POC pH 7.37 (7.35-7.45) POC pCO2 42 (35-46) mmHg POC pO2 86 (80-95) mmHg POC HCO3 24 (19-24) mita/L POC Total CO2 26 (24-31) mmol/L POC Base Excess -1.0 (-9-1.8) mita/L ABG pH (Temp Correct) 7.369 (7.35-7.45) ABG pCO2 (Temp Corrct 42 (35-46) mmHg POC ABG pO2 at Pt Temp 86 [place] Test Pass POC Sodium 138 (135-144) mmol/L Sodium (136-145) mmol/L POC Potassium 5.0 (3.3-5.0) mmol/L Potassium (3.5-5.1) mmol/L Chloride (98-107) mmol/L Carbon Dioxide (21-32) mmol/L Anion Gap (3-11) BUN (7-18) mg/dl Creatinine (0.6-1.4) mg/dl Est Cr Clr Drug Dosing ml/min Est GFR ( Amer) Est GFR (Non-Af Amer) BUN/Creatinine Ratio (10-20) Glucose (70-99) mg/dl POC Glucose 174 H (70-99) mg/dl Calcium (8.5-10.1) mg/dl Nasal Screen MRSA (PCR) Negative (Negative) Blood Type Antibody Screen 08/17/19 08/17/19 08/17/19 Range/Units 07:37 07:37 07:37 WBC (4.8-10.8) K/uL RBC (4.7-6.1) M/uL Hgb (14.0-18.0) g/dL POC Hgb (14.0-18.0) g/dl Hct (42-52) % POC Hct (42-52) % MCV (80-100) fL MCH (25-34) pg MCHC (32-36) g/dL RDW Std Deviation (36.4-46.3) fL RDW Coeff of Dacia (11.5-14.5) % Plt Count (130-400) K/uL MPV (7.4-10.4) fL Immature Gran % (Auto) % Neut % (Auto) % Lymph % (Auto) % Barnes % (Auto) % Eos % (Auto) % Baso % (Auto) % Immature Gran # (Auto) (0.00-0.02) K/uL Neut # (Auto) (1.4-6.5) K/uL Lymph # (Auto) (1.2-3.4) K/uL Barnes # (Auto) (0.11-0.59) K/uL Eos # (Auto) (0-0.5) K/uL Baso # (Auto) (0-0.2) K/uL Absolute Nucleated RBC (0-0) K/uL Nucleated RBC % (auto) % PT 11.6 (9.0-12.0) Seconds INR 1.1 (0.9-1.1) APTT 28.3 (21.0-31.0) Seconds PTT Ratio 1.0 Sample Site POC pH (7.35-7.45) POC pCO2 (35-46) mmHg POC pO2 (80-95) mmHg POC HCO3 (19-24) mita/L POC Total CO2 (24-31) mmol/L POC Base Excess (-9-1.8) mita/L ABG pH (Temp Correct) (7.35-7.45) ABG pCO2 (Temp Corrct (35-46) mmHg POC ABG pO2 at Pt Temp [place] Test POC Sodium (135-144) mmol/L Sodium 141 (136-145) mmol/L POC Potassium (3.3-5.0) mmol/L Potassium 3.8 (3.5-5.1) mmol/L Chloride 104 (98-107) mmol/L Carbon Dioxide 31 (21-32) mmol/L Anion Gap 6.0 (3-11) BUN 16 (7-18) mg/dl Creatinine 4.42 H (0.6-1.4) mg/dl Est Cr Clr Drug Dosing 19.3 ml/min Est GFR ( Amer) 14.5 Est GFR (Non-Af Amer) 12.5 BUN/Creatinine Ratio 3.6 L (10-20) Glucose 113 H (70-99) mg/dl POC Glucose (70-99) mg/dl Calcium 8.6 (8.5-10.1) mg/dl Nasal Screen MRSA (PCR) (Negative) Blood Type O Negative Antibody Screen NEGATIVE Medications Administered Current Inpatient Medications Albuterol (Ventolin Hfa) 2 puffs INH Q4H PRN PRN Reason: sob Stop: 09/16/19 14:16 Allopurinol (Zyloprim) 300 mg PO QAM [facility] Stop: 09/17/19 08:59 Ascorbic Acid (Vitamin C) 1,000 mg PO QAM [facility] Stop: 09/17/19 08:59 Aspirin (Ecotrin Ectab) 81 mg PO QAM [facility] Stop: 09/17/19 08:59 Atorvastatin Calcium (Lipitor) 80 mg PO HS [facility] Stop: 09/16/19 20:59 Last Admin: 08/17/19 20:14 Dose: Not Given Documented by: Clonazepam (Klonopin) 0.5 mg PO DAILY PRN PRN Reason: Anxiety Stop: 09/16/19 14:16 Cyanocobalamin (Vitamin B-12) 1,000 mcg PO QAM [facility] Stop: 09/17/19 08:59 Dextrose (Dextrose 50%) 25 - 50 ml IV UD PRN; Protocol PRN Reason: Hypoglycemia Protocol Stop: 09/17/19 05:28 Enoxaparin Sodium (Lovenox) 80 mg SQ DAILY [facility] Stop: 09/17/19 08:59 Fluticasone Propionate (Flonase) 1 sprays NA DAILY PRN PRN Reason: Congestion Stop: 09/16/19 14:16 Fluticasone/Vilanterol (Breo Ellipta 100/25 Mcg Inh) 1 puffs INH DAILY [facility] Stop: 09/17/19 08:59 Glipizide (Glucotrol) 5 mg PO DAILYBB [facility] Stop: 09/17/19 06:29 Last Admin: 08/18/19 05:32 Dose: Not Given Documented by: Glucagon (Glucagen) 1 mg SQ UD PRN; Protocol PRN Reason: Hypoglycemia Protocol Stop: 09/17/19 05:28 Glucose (Dex4 Glucose) 4 - 8 tabs PO UD PRN; Protocol PRN Reason: Hypoglycemia Protocol Stop: 09/17/19 05:28 Glucose (Glucose 40%) 15 - 30 gm PO UD PRN; Protocol PRN Reason: Hypoglycemia Protocol Stop: 09/17/19 05:28 Hydralazine HCl (Apresoline) 25 mg PO TID [facility] Stop: 09/16/19 14:59 Last Admin: 08/17/19 20:14 Dose: Not Given Documented by: Hydralazine HCl (Hydralazine Hcl) 10 mg IV Q4H PRN PRN Reason: Hypertension Stop: 09/16/19 21:16 Last Admin: 08/18/19 07:26 Dose: 10 mg Documented by: Hydroxyzine HCl (Vistaril) 25 mg PO HS [facility] Stop: 09/16/19 20:59 Last Admin: 08/17/19 20:15 Dose: Not Given Documented by: Levetiracetam 500 mg/ Sodium (Chloride) 105 mls @ 420 mls/hr IV Q12H [facility] Stop: 09/17/19 08:59 Methylprednisolone 40 mg/ (Syringe) 0.64 mls @ 1.5 mls/min IV BID [facility] Stop: 09/16/19 20:59 Last Admin: 08/17/19 20:16 Dose: 1.5 mls/min Documented by: Famotidine 20 mg/ Syringe 5 mls @ 2.5 mls/min IV BID [facility] Stop: 09/17/19 20:59 Insulin Aspart (Novolog Flexpen) 0 units SC Q6 [facility] Stop: 09/17/19 05:59 Last Admin: 08/18/19 05:56 Dose: 2 units Documented by: Ioversol (Optiray 320 125ml) 118 ml IV ONCE PRN PRN Reason: Interaction Checking Stop: 08/21/19 14:43 Last Admin: 08/17/19 14:45 Dose: 118 ml Documented by: Isosorbide Mononitrate (Imdur Extended Rel) 30 mg PO QAM [facility] Stop: 09/17/19 08:59 Labetalol HCl (Normodyne) 10 mg IV Q2H PRN PRN Reason: Hypertension Stop: 09/16/19 21:16 Last Admin: 08/18/19 06:13 Dose: 10 mg Documented by: Loratadine (Claritin) 10 mg PO QAM [facility] Stop: 09/17/19 08:59 Metoprolol Tartrate (Lopressor) 50 mg PO BID [facility] Stop: 09/16/19 20:59 Last Admin: 08/17/19 20:15 Dose: Not Given Documented by: Miscellaneous (Carbohydrates For Hypoglycemia) 15 - 30 gm PO UD PRN PRN Reason: Hypoglycemia Protocol Stop: 09/17/19 05:28 Miscellaneous Information (Consult Glycemic Management Pharmacy) 1 ea N/A UD PRN; Protocol PRN Reason: Consult Stop: 09/17/19 05:39 Morphine Sulfate (Morphine Sulfate) 1 - 4 mg IV Q2H PRN PRN Reason: Severe Pain Stop: 08/31/19 14:16 Multivitamins/Minerals (Multivitamin W/ Minerals Tab) 1 tab PO QAM [facility] Stop: 09/17/19 08:59 Nitroglycerin (Nitrostat) 0.3 mg SL UD PRN PRN Reason: Chest Pain Stop: 09/16/19 14:16 Ondansetron HCl (Zofran) 4 mg IV Q6H PRN PRN Reason: Nausea Stop: 09/17/19 05:49 Oxycodone/Acetaminophen (Percocet 5mg/325mg) 1 - 2 tab PO Q4H PRN PRN Reason: Moderate Pain Stop: 08/31/19 14:16 [facility]oprazole S[facility] ([facility]) [facility]: 09/17/19 08:59 Polyethylene Glycol (Miralax Powder Packet) 17 gm PO BID PRN PRN Reason: Constipation Stop: 09/16/19 14:16 Sennosides (Senokot) 17.2 mg PO DAILY PRN PRN Reason: Constipation Stop: 09/16/19 14:16 Sevelamer HCl (Renagel) 800 mg PO TIDM [facility] Stop: 09/16/19 16:59 Last Admin: 08/17/19 15:58 Dose: Not Given Documented by: Thiamine HCl (Vitamin B-1) 100 mg PO QAM [facility] Stop: 09/17/19 08:59 Trazodone HCl (Desyrel) 150 mg PO HS [facility] Stop: 09/16/19 20:59 Last Admin: 08/17/19 20:14 Dose: Not Given Documented by: Umeclidinium [place] (Incruse Ellipta) 1 puffs [facility] [place] Stop: 09/17/19 08:59 Venlafaxine HCl (Effexor Extended Release) 75 [facility] [place] Stop: 09/17/19 08:59 Vitamin D (Vitamin D3) 2,000 [facility] [place] Stop: 09/17/19 08:59 Warfarin Sodium (Coumadin) 5 mg PO DAILY@1600 [facility] Stop: 09/17/19 15:59 Resident Activity Tracking Resident Involvement: Resident Care Provided Care Provided: Adult Hospital Medicine
[2019-08-18] MEDS: SEVELAMER HCL 800 MG TABLET PO SCH (08:39)
[2019-08-18] MEDS ORDERED: SODIUM CHLORIDE 0.9% 1000ML 1,000 ML IV PRN (08:50)
[2019-08-18] MEDS: levETIRAcetam 500 MG in 0.9 % SODIUM CHLORIDE 100 ML IV SCH ×2 (08:53→21:28)
[2019-08-18] MEDS: FLUTICASONE/VILANTEROL 100/25MCG 14 PUFFS/INHALER INH SCH (08:53)
[2019-08-18] MEDS: methylPREDNISolone 40 MG in SYRINGE 0 ML IV SCH ×2 (08:53→20:22)
[2019-08-18] MEDS: UMECLIDINIUM BROMIDE 62.5MCG/BLISTER 7 PUFFS/INHALER INH SCH (08:54)
[2019-08-18] MEDS ORDERED: CEROVITE ADV FORMULA TAB PO SCH (09:00)
[2019-08-18] MEDS ORDERED: ISOSORBIDE MONO EXTENDED REL 30 MG TABCR PO SCH (09:00)
[2019-08-18] MEDS ORDERED: ICU PROTOCOL FOR HYPERGLYCEMIA SCH (09:00)
[2019-08-18] MEDS ORDERED: allopurinoL 300 MG TAB PO SCH (09:00)
[2019-08-18] MEDS ORDERED: CYANOCOBALAMIN 500 MCG TABLET (VITAMIN B-12) PO SCH (09:00)
[2019-08-18] MEDS ORDERED: THIAMINE HCL 100 MG TAB PO SCH (09:00)
[2019-08-18] MEDS ORDERED: LANTUS PER UNIT CHARGE SQ ONE ×2 (09:00→21:00)
[2019-08-18] MEDS ORDERED: CHOLECALCIFEROL 1,000 UNITS 25 MCG TAB PO SCH (09:00)
[2019-08-18] MEDS ORDERED: VENLAFAXINE HCL XR 75 MG CAPXR PO SCH (09:00)
[2019-08-18] MEDS ORDERED: LORATADINE 10 MG TAB PO SCH (09:00)
[2019-08-18] MEDS ORDERED: ENOXAPARIN 80 MG/0.8 ML SYR SQ SCH (09:00)
[2019-08-18] MEDS ORDERED: ASPIRIN 81 MG ECTAB PO SCH (09:00)
[2019-08-18] MEDS ORDERED: ASCORBIC ACID 500 MG TAB PO SCH (09:00)
[2019-08-18] MEDS ORDERED: PANTOprazole 40 MG TAB PO SCH (09:00)
--- NOTE | 2019-08-18 09:05 | Electroencephalogram ---
EEG Procedure Note Date of Service August 18, 2019 Start / End Times Start Time: 6:23 AM End Time: 6:43 AM Referring Physician JULIUS Esparza History Seizure, status post left carotid endarterectomy, history of stroke Home Medication List Home Medications Medication Instructions Recorded Confirmed Type allopurinol 300 mg PO QAM 02/05/18 08/17/19 History aspirin [Aspir-81] 81 mg PO QAM 02/05/18 08/17/19 History atorvastatin 80 mg PO HS 02/05/18 08/17/19 History loratadine [Claritin] 10 mg PO QAM 02/05/18 08/17/19 History melatonin 10 mg PO HS 02/05/18 08/17/19 History nitroglycerin 0.3 mg SUBLINGUAL DIRECTED PRN 02/05/18 08/17/19 History pantoprazole 40 mg PO QAM 02/05/18 08/17/19 History PreserVision AREDS-2 1 tab PO QAM 02/16/18 08/17/19 History cholecalciferol (vitamin D3) 2,000 unit PO QAM 02/16/18 08/17/19 History [Vitamin D3] cyanocobalamin (vitamin B-12) 1,000 mcg PO QAM 02/16/18 08/17/19 History [Vitamin B-12] hydralazine 25 mg PO TID 05/15/18 08/17/19 History thiamine HCl (vitamin B1) 100 mg 100 mg PO QAM tab 12/22/18 08/17/19 History tablet albuterol sulfate 2 puff INHALATION Q4H PRN 02/12/19 08/17/19 History budesonide-formoterol [Symbicort] 2 puff INHALATION BID 02/12/19 08/17/19 History fluticasone propionate 1 spray INTRANASAL DAILY PRN 02/12/19 08/17/19 History isosorbide mononitrate 30 mg PO QAM 02/12/19 08/17/19 History tiotropium bromide [Spiriva with 1 cap INHALATION QAM 02/13/19 08/17/19 History HandiHaler] glipizide 5 mg PO QAM 04/22/19 08/17/19 History clonazepam [Klonopin] 0.5 mg PO DAILY PRN 05/03/19 08/17/19 History ascorbic acid (vitamin C) 1,000 mg PO QAM 07/09/19 08/17/19 History sevelamer carbonate [Renvela] 800 mg PO TIDM 07/09/19 08/17/19 History venlafaxine 75 mg PO QAM 07/09/19 08/17/19 History warfarin 2.5 mg PO DAILY #0 tab 07/17/19 08/17/19 Rx hydroxyzine HCl 25 mg PO HS 08/04/19 08/17/19 History polyethylene glycol 3350 [Miralax] 17 g PO BID PRN 08/04/19 08/17/19 History sennosides [senna] 17.2 mg PO DAILY PRN 08/04/19 08/17/19 History trazodone 150 mg PO HS 08/04/19 08/17/19 History enoxaparin [Lovenox] 80 mg SUBCUT DAILY 08/17/19 08/17/19 History metoprolol tartrate 50 mg PO BID 08/17/19 08/17/19 History Inpatient Medication List Atorvastatin Calcium (Lipitor) 80 mg PO [facility] Stop: 09/16/19 20:59 Last Admin: 08/17/19 20:14 Dose: Not Given Documented by: [id number] Glipizide (Glucotrol) 5 mg PO DAILYBB [facility] Stop: 09/17/19 06:29 Last Admin: 08/18/19 05:32 Dose: Not Given Documented by: [id number] Hydralazine HCl (Apresoline) 25 mg PO TID [facility] Stop: 09/16/19 14:59 Last Admin: 08/17/19 20:14 Dose: Not Given Documented by: [id number] Admin: 08/17/19 15:58 Dose: Not Given Documented by: [id number] Hydralazine HCl (Hydralazine Hcl) 10 mg IV Q4H PRN PRN Reason: Hypertension Stop: 09/16/19 21:16 Last Admin: 08/18/19 07:26 Dose: 10 mg Documented by: [id number] Admin: 08/18/19 03:04 Dose: 10 mg Documented by: [id number] Admin: 08/18/19 00:05 Dose: 10 mg Documented by: [id number] Hydroxyzine HCl (Vistaril) 25 mg PO [facility] Stop: 09/16/19 20:59 Last Admin: 08/17/19 20:15 Dose: Not Given Documented by: [id number] Methylprednisolone 40 mg/ (Syringe) 0.64 mls @ 1.5 mls/min IV BID [facility] Stop: 09/16/19 20:59 Last Admin: 08/17/19 20:16 Dose: 1.5 mls/min Documented by: [id number] Insulin Aspart (Novolog Flexpen) 0 units SC Q6 [facility] Stop: 09/17/19 05:59 Last Admin: 08/18/19 05:56 Dose: 2 units Documented by: [id number] Cosigned by: [id number] Ioversol (Optiray 320 125ml) 118 ml IV ONCE PRN PRN Reason: Interaction Checking Stop: 08/21/19 14:43 Last Admin: 08/17/19 14:45 Dose: 118 ml Documented by: [id number] Labetalol HCl (Normodyne) 10 mg IV Q2H PRN PRN Reason: Hypertension Stop: 09/16/19 21:16 Last Admin: 08/18/19 08:10 Dose: 10 mg Documented by: [id number] Cosigned by: [id number] Admin: 08/18/19 06:13 Dose: 10 mg Documented by: [id number] Cosigned by: [id number] Admin: 08/18/19 04:08 Dose: 10 mg Documented by: [id number] Cosigned by: [id number] Admin: 08/17/19 22:14 Dose: 10 mg Documented by: [id number] Cosigned by: [id number] Metoprolol Tartrate (Lopressor) 50 mg PO BID [facility] Stop: 09/16/19 20:59 Last Admin: 08/17/19 20:15 Dose: Not Given Documented by: [id number] Sevelamer HCl (Renagel) 800 mg PO TIDM [facility] Stop: 09/16/19 16:59 Last Admin: 08/18/19 08:39 Dose: Not Given Documented by: [id number] Admin: 08/17/19 15:58 Dose: Not Given Documented by: [id number] Trazodone HCl (Desyrel) 150 mg PO HS [facility] Stop: 09/16/19 20:59 Last Admin: 08/17/19 20:14 Dose: Not Given Documented by: [id number] Discontinued Medications Bupivacaine HCl/Epinephrine Bitart (Sensorcaine/Epinephrine 0.5% Mpf 1:200,000) Confirm Administered Dose 30 ml .ROUTE .ST-MED ONE Stop: 08/17/19 07:03 Last Admin: 08/17/19 14:22 Dose: Not Given Documented by: [id number] Bupivacaine HCl/Epinephrine Bitart (Sensorcaine/Epinephrine 0.5% Mpf 1:200,000) Confirm Administered Dose 30 ml .ROUTE .ST-MED ONE Stop: 08/17/19 13:49 Last Admin: 08/17/19 14:23 Dose: Not Given Documented by: [id number] Cefazolin Sodium (Ancef) Confirm Administered Dose 1,000 mg .ROUTE .ST-MED ONE Stop: 08/17/19 07:02 Last Admin: 08/17/19 12:53 Dose: 1,000 mg Documented by: [id number] Cefazolin Sodium (Ancef) Confirm Administered Dose 1,000 mg .ROUTE .ST-MED ONE Stop: 08/17/19 13:49 Last Admin: 08/17/19 14:22 Dose: Not Given Documented by: [id number] Gelatin (Surgifoam Sponge 100 (Large)) Confirm Administered Dose 1 ea .ROUTE .ST-MED ONE Stop: 08/17/19 07:02 Last Admin: 08/17/19 10:39 Dose: 1 ea Documented by: [id number] Gelatin (Surgifoam Sponge 100 (Large)) Confirm Administered Dose 1 ea .ROUTE .ST-MED ONE Stop: 08/17/19 13:49 Last Admin: 08/17/19 14:23 Dose: 1 ea Documented by: [id number] Heparin Sodium (Porcine) (Heparin Iv Bolus (Design Manager Use Only)) Confirm Administered Dose 10,000 units .ROUTE .ST-MED ONE Stop: 08/17/19 07:02 Last Admin: 08/17/19 12:52 Dose: 10,000 units Documented by: [id number] Heparin Sodium (Porcine) (Heparin Iv Bolus (Design Manager Use Only)) Confirm Administered Dose 10,000 units .ROUTE .STK-MED ONE Stop: 08/17/19 13:48 Last Admin: 08/17/19 14:22 Dose: 10,000 units Documented by: [id number] Hydralazine HCl (Hydralazine Hcl) Confirm Administered Dose 20 mg .ROUTE .ST- MED ONE Stop: 08/17/19 19:37 Last Increment: 03/17/20 19:58 Dose: 10 mg Documented by: [id number] Sodium Chloride (Nss 1000ml) 1,000 mls @ 15 mls/hr IV .Q24H [facility] Stop: 08/18/19 05:59 Last Infusion: 08/17/19 09:47 Dose: 0 mls/hr Documented by: [id number] Admin: 08/17/19 08:13 Dose: 15 mls/hr Documented by: [id number] Cefazolin Sodium (Ancef 3000mg) 72.5 mls @ 130 mls/hr IV PREOP [facility]; Protocol Stop: 08/17/19 18:00 Last Infusion: 08/18/19 08:42 Dose: 0 mls/hr Documented by: [id number] Admin: 08/17/19 09:41 Dose: 130 mls/hr Documented by: [id number] Cefazolin Sodium (Ancef 2000mg) 2,000 mg in 15 mls @ 3.75 mls/min IV Q8H [facility]; Protocol Stop: 08/18/19 01:03 Last Admin: 08/18/19 00:05 Dose: 3.75 mls/min Documented by: [id number] Admin: 08/17/19 16:42 Dose: 3.75 mls/min Documented by: [id number] Sodium Chloride (Nss 1000ml) 1,000 mls @ 125 mls/hr IV .Q8H [facility] Stop: 09/16/19 14:16 Last Infusion: 08/17/19 20:15 Dose: 0 mls/hr Documented by: [id number] Admin: 08/17/19 15:57 Dose: 125 mls/hr Documented by: [id number] Levetiracetam 2,000 mg/ Sodium (Chloride) 270 mls @ 999 mls/hr IV NOW STA Stop: 08/17/19 19:58 Last Infusion: 08/17/19 20:27 Dose: 0 mls/hr Documented by: [id number] Admin: 08/17/19 19:58 Dose: 999 mls/hr Documented by: [id number] Famotidine 20 mg/ Syringe 5 mls @ 2.5 mls/min IV ONE ONE Stop: 08/18/19 06:01 Last Admin: 08/18/19 06:04 Dose: 2.5 mls/min Documented by: [id number] Lidocaine HCl (Xylocaine 1% (Local)) Confirm Administered Dose 20 ml .ROUTE .STK-MED ONE Stop: 08/17/19 07:02 Last Admin: 08/17/19 12:56 Dose: Not Given Documented by: [id number] Lidocaine HCl (Xylocaine 1% (Local)) Confirm Administered Dose 20 ml .ROUTE .STK-MED ONE Stop: 08/17/19 13:49 Last Admin: 08/17/19 14:23 Dose: Not Given Documented by: [id number] Lorazepam (Ativan) Confirm Administered Dose 2 mg .ROUTE .STK-MED ONE Stop: 08/17/19 19:33 Last Admin: 08/17/19 19:59 Dose: Not Given Documented by: [id number] Ondansetron HCl (Zofran) Confirm Administered Dose 4 mg .ROUTE .STK-MED ONE Stop: 08/18/19 05:51 Last Admin: 08/18/19 05:57 Dose: 4 mg Documented by: [id number] Thrombin (Recothrom Kit) Confirm Administered Dose 20,000 units .ROUTE .STK-MED ONE Stop: 08/17/19 07:02 Last Admin: 08/17/19 12:53 Dose: 20,000 units Documented by: [id number] Thrombin (Recothrom Kit) Confirm Administered Dose 20,000 units .ROUTE .STK-MED ONE Stop: 08/17/19 13:49 Last Admin: 08/17/19 14:22 Dose: 1,000 units Documented by: [id number] Description This is a 21 electrode EEG with a single channel dedicated to limited EKG. The electrodes were placed in accordance with the International 10-20 system. There is a poorly organized low amplitude background rhythm of 8 to 9 Hz. Photic stimulation is unremarkable. Hyperventilation is not performed. There is admixed generalized theta slowing. There is high amplitude focal 6 Hz slowing seen left posterior region. There are no sharps, spikes, or spike-wave abnormalities. There is intermittent movement artifact throughout the study. Interpretation This is an abnormal sleep/drowsy EEG revealing high amplitude focal slowing overlying the left posterior head regions suggesting an underlying structural or functional abnormality. There is no evidence of seizure activity at this time. The study also reveals changes suggestive of a moderate diffuse encephalopathy. Further clinical correlation needed. [facility] EEG Procedure Codes Indication for Procedure (1) Seizure: Neurology Neurology: [id number] EEG include record awake & drowsy
[2019-08-18] MEDS: METOPROLOL TARTRATE 50 MG TAB PO SCH (09:14)
--- NOTE | 2019-08-18 10:01 | Nephrology Consultation ---
Date of Consultation August 18, 2019 Assessment & Plan (1) ESRD (end stage renal disease): -- HD today for clearance and UF -- HD orders entered into EMR and reviewed with nurse; 2K bath -- UF goal 1-2 L as tolerated -- Close BP monitoring due to acute CVA -- R femoral HD catheter for access -- Medications appropriate for kidney function, Keppra per pharmacy -- BP and volume status currently appropriate -- Chronic stable anemia, maintained on Micera as outpatient. Epogen held today -- s/p CEA, additional heparin held with treatment -- Maintained on warfarin for Afib History of Present Illness Reason for Consultation: ESRD on HD Requesting Physician: Damien Jennings MD Attending Physician: Damien Jennings MD History of Present Illness Mr. Pierce was seen & examined in the ICU this morning. Plan of care was discussed w/ the paedodontist and dialysis nurse. Mr. Pierce has ESRD due to CRS. He has been on IHD since 02/18 and dialyzes MWF at [facility] (4hr, 2K 2Ca, F-180NR, EDW 122). The RUE BC AVF recently infiltrated after initial use. It has been rested. A RIJ TDC has been used for treatment without complications. The patient's last treatment was on Friday. Mr. Pierce's medical history is significant for dCHF, tachy-casey syndrome s/p pacer (warfarin), multiple TIA, AODM, HTN, bladder CA s/p cystectomy w/ urostomy, prostate CA s/p prostatectomy, gout, MJ, COPD. Mr. Pierce was recently admitted to [facility] with acute CVA in July and underwent a right CEA which was uneventful. He also had severe Left ICA stenosis He was admitted for a left CEA yesterday. The patient was found to have right sided weakness following the procedure. He was admitted to the ICU for observation and monitoring. Allergies Allergy/AdvReac Type Severity Reaction Status Date / Time promethazine Allergy Intermediate UNCONTROLLED Verified 08/17/19 07:52 MUSCLE MOVEMENTS codeine AdvReac Intermediate "trips me Verified 08/17/19 07:52 out" Home Medications Home Medications Medication Instructions Recorded Confirmed Type allopurinol 300 mg PO QAM 02/05/18 08/17/19 History aspirin [Aspir-81] 81 mg PO QAM 02/05/18 08/17/19 History atorvastatin 80 mg PO HS 02/05/18 08/17/19 History loratadine [Claritin] 10 mg PO QAM 02/05/18 08/17/19 History melatonin 10 mg PO HS 02/05/18 08/17/19 History nitroglycerin 0.3 mg SUBLINGUAL DIRECTED PRN 02/05/18 08/17/19 History pantoprazole 40 mg PO QAM 02/05/18 08/17/19 History PreserVision AREDS-2 1 tab PO QAM 02/16/18 08/17/19 History cholecalciferol (vitamin D3) 2,000 unit PO QAM 02/16/18 08/17/19 History [Vitamin D3] cyanocobalamin (vitamin B-12) 1,000 mcg PO QAM 02/16/18 08/17/19 History [Vitamin B-12] hydralazine 25 mg PO TID 05/15/18 08/17/19 History thiamine HCl (vitamin B1) 100 mg 100 mg PO QAM tab 12/22/18 08/17/19 History tablet albuterol sulfate 2 puff INHALATION Q4H PRN 02/12/19 08/17/19 History budesonide-formoterol [Symbicort] 2 puff INHALATION BID 02/12/19 08/17/19 History fluticasone propionate 1 spray INTRANASAL DAILY PRN 02/12/19 08/17/19 History isosorbide mononitrate 30 mg PO QAM 02/12/19 08/17/19 History tiotropium bromide [Spiriva with 1 cap INHALATION QAM 02/13/19 08/17/19 History HandiHaler] glipizide 5 mg PO QAM 04/22/19 08/17/19 History clonazepam [Klonopin] 0.5 mg PO DAILY PRN 05/03/19 08/17/19 History ascorbic acid (vitamin C) 1,000 mg PO QAM 07/09/19 08/17/19 History sevelamer carbonate [Renvela] 800 mg PO TIDM 07/09/19 08/17/19 History venlafaxine 75 mg PO QAM 07/09/19 08/17/19 History warfarin 2.5 mg PO DAILY #0 tab 07/17/19 08/17/19 Rx hydroxyzine HCl 25 mg PO HS 08/04/19 08/17/19 History polyethylene glycol 3350 [Miralax] 17 g PO BID PRN 08/04/19 08/17/19 History sennosides [senna] 17.2 mg PO DAILY PRN 08/04/19 08/17/19 History trazodone 150 mg PO HS 08/04/19 08/17/19 History enoxaparin [Lovenox] 80 mg SUBCUT DAILY 08/17/19 08/17/19 History metoprolol tartrate 50 mg PO BID 08/17/19 08/17/19 History Patient History Medical History Anemia Anxiety Atrial fibrillation DX 2006 - NO HX CARDIOVERSION Cancer HX OF BLADDER HX OF PROSTATE Carotid stenosis, bilateral CHF (congestive heart failure) Chronic back pain Chronic obstructive pulmonary disease on 2 L O2 prn, 3L HS with BiPAP (not using BiPAP currently due to mask issues) Coronary arteriosclerosis S/P BMS to RCA November 2012 Depression Diabetes mellitus, type 2 NIDDM Dialysis patient MON, WED AND FRI (RIGHT SHOULDER AREA CURRENT ACCESS) ESRD (end stage renal disease) on dialysis GERD (gastroesophageal reflux disease) Gout continue allopurinol for prophylaxis Hiatal hernia History of kidney stones Hyperlipidemia Hypertension Morbid obesity Osteoarthritis Pacemaker 2011 IMPLANTED FOR A-FIB Peripheral neuropathy Post traumatic stress disorder Presence of urostomy Sleep apnea BIPAP Stroke NOVEMBER 2017- SLURRED SPEECH/LEFT FOOT WEAKNESS- CT SCAN SHOWED EVIDENCE OF AN OLD STROKE- ? EXACT DATE RESIDUAL LEFT SIDED WEAKNESS TIA (transient ischemic attack) 07/09/2019 during hospital admission- did not receive thrombolytic therapy- dysarthria and left arm weakness improved. Unable to obtain MRI due to pacemaker Surgical History History of biopsy of bladder (Resolved) History of cardiac cath (Resolved) STENT PLACED 2011 History of carotid endarterectomy right carotid 07/13/[address] Jennings History of cataract surgery (Resolved) RT/LEFT History of cholecystectomy (Resolved) History of colonoscopy History of laminectomy (Resolved) LUMBAR History of prostatectomy (Resolved) History of tooth extraction (Resolved) History of urologic surgery FOR KIDNEY STONE History of urostomy BLADDER REMOVED D/T CANCER STOMA REVISED History of vascular access device right femoral line in currently. Pericardial disease (Resolved) PERICARDIAL WINDOW/MICROSCOPIC ([facility]) 2014 S/P arteriovenous (AV) fistula creation right arm (05/2019) Family History Other Family history non-contributory Denies family history of Stroke Social History Preferred Language: [place] Island[place] Communication Ability: Impaired Communication Ability Comment: Need to re-assess with evolution of process Engagement Quality Consultant Required: No Beliefs That Will Affect Care: None marital status: Current Living Situation: Spouse Current Living Situation Comment: pt and his live with their dtr current occupational status: retired Other Information That Helps Us Care for You: No Feels Safe at Home: Yes Safety Concerns: Feels Safe At This Time Smoking Status: Former smoker Tobacco Type: cigarettes ; Do You Dip or Chew Tobacco: No ; Smoking End Date: 06/2000 ; Second Hand Exposure: No ; Tobacco Cessation Education Requested by Patient: No Hx Alcohol Use: No Hx Substance Use: No Review of Systems Review of Systems: All systems reviewed & are unremarkable except as noted in HPI & below Physical Exam Constitutional: well developed and + physical limitations; no acute distress and not edematous Eyes: + anicteric sclerae; no corneal abnormality ENMT: Mouth: no oral mucosal abnormality and oral mucous membranes not dry Neck: normal visual inspection, trachea midline and + thick neck Respiratory: normal respiratory effort Auscultation: lungs clear to auscultation bilaterally and + rales few basilar Cardiovascular: Rate/Rhythm: regular rate Heart Sounds: normal S1 and normal S2 Extremities: no edema Gastrointestinal (Abdomen): Percussion/Palpation: abdomen soft; abdomen nontender Musculoskeletal: Extremities: no cyanosis and no clubbing R femoral TDC Skin: normal turgor; no lesions Neurologic: Motor/Sensory: no tremor and no asterixis Psychiatric: Orientation: alert and oriented x 3 Results & Data Vital Signs (Past 12 Hours) Vital Signs Temp Pulse Resp BP Pulse Ox 08/18/19 09:08 68 22 144/73 H 100 08/18/19 08:55 60 14 155/58 H 96 08/18/19 07:54 62 16 167/54 H 95 08/18/19 07:10 37.1 C 62 16 148/43 H 99 08/18/19 06:54 62 10 L 180/56 H 99 08/18/19 06:00 60 16 97 08/18/19 05:56 60 17 155/58 H 99 08/18/19 05:30 60 26 H 100 08/18/19 05:00 60 22 95 08/18/19 04:55 60 23 104/45 L 95 08/18/19 03:54 61 17 159/64 H 96 08/18/19 03:48 37.1 C 08/18/19 03:30 62 18 93 08/18/19 03:00 62 15 97 08/18/19 02:55 60 14 162/53 H 98 08/18/19 02:30 61 24 95 08/18/19 02:00 60 23 96 08/18/19 01:55 60 13 136/59 L 96 08/18/19 01:30 60 16 95 08/18/19 01:00 60 14 97 08/18/19 00:55 64 12 161/41 H 98 08/18/19 00:30 67 18 98 08/18/19 00:02 63 18 169/59 H 98 08/18/19 00:00 37.1 C 69 18 100 08/17/19 23:55 65 20 163/100 H 100 08/17/19 23:30 60 14 96 08/17/19 23:24 60 21 125/40 L 95 08/17/19 23:06 60 08/17/19 23:00 60 20 96 08/17/19 22:54 60 17 125/40 L 91 08/17/19 22:53 60 18 122/39 L 93 08/17/19 22:39 62 21 159/53 H 96 08/17/19 22:30 71 18 95 08/17/19 22:15 69 22 100 08/17/19 22:08 63 13 163/51 H 97 08/17/19 22:00 81 24 100 Laboratory Results Laboratory Results - last 24 hr 08/17/19 08/17/19 08/17/19 14:55 15:08 16:29 WBC RBC Hgb POC Hgb 8.5 L Hct POC Hct 25 L MCV MCH MCHC RDW Std Deviation RDW Coeff of Dacia Plt Count MPV Immature Gran % (Auto) Neut % (Auto) Lymph % (Auto) Glasscock % (Auto) Eos % (Auto) Baso % (Auto) Immature Gran # (Auto) Neut # (Auto) Lymph # (Auto) [place]cock # (Auto) Eos # (Auto) Baso # (Auto) Absolute Nucleated RBC Nucleated RBC % (auto) PT INR Sample Site Art Line POC pH 7.37 POC pCO2 42 POC pO2 86 POC HCO3 24 POC Total CO2 26 POC Base Excess -1.0 ABG pH (Temp Correct) 7.369 ABG pCO2 (Temp Corrct 42 POC ABG pO2 at Pt Temp 86 Tyler Test Pass POC Sodium 138 Sodium POC Potassium 5.0 Potassium Chloride Carbon Dioxide Anion Gap BUN Creatinine Est Cr Clr Drug Dosing Est GFR ( Amer) Est GFR (Non-Af Amer) BUN/Creatinine Ratio Glucose POC Glucose 174 H Calcium Nasal Screen MRSA (PCR) Negative 08/17/19 08/17/19 08/18/19 17:46 23:56 04:28 WBC 8.61 RBC 3.13 L Hgb 10.3 L POC Hgb Hct 32.1 L POC Hct MCV 102.6 H MCH 32.9 MCHC 32.1 RDW Std Deviation 62.4 H RDW Coeff of Dacia 16.7 H Plt Count 163 MPV 11.6 H Immature Gran % (Auto) 0.5 Neut % (Auto) 93.6 Lymph % (Auto) 3.8 Glasscock % (Auto) 2.1 Eos % (Auto) 0.0 Baso % (Auto) 0.0 Immature Gran # (Auto) 0.04 H Neut # (Auto) 8.06 H Lymph # (Auto) 0.33 L Glasscock # (Auto) 0.18 Eos # (Auto) 0.00 Baso # (Auto) 0.00 Absolute Nucleated RBC 0.02 H Nucleated RBC % (auto) 0.2 PT INR Sample Site POC pH POC pCO2 POC pO2 POC HCO3 POC Total CO2 POC Base Excess ABG pH (Temp Correct) ABG pCO2 (Temp Corrct POC ABG pO2 at Pt Temp Tyler Test POC Sodium Sodium POC Potassium Potassium Chloride Carbon Dioxide Anion Gap BUN Creatinine Est Cr Clr Drug Dosing Est GFR ( Amer) Est GFR (Non-Af Amer) BUN/Creatinine Ratio Glucose POC Glucose 156 H 189 H Calcium Nasal Screen MRSA (PCR) 08/18/19 08/18/19 08/18/19 04:28 04:28 05:53 WBC RBC Hgb POC Hgb Hct POC Hct MCV MCH MCHC RDW Std Deviation RDW Coeff of Dacia Plt Count MPV Immature Gran % (Auto) Neut % (Auto) Lymph % (Auto) [place]cock % (Auto) Eos % (Auto) Baso % (Auto) Immature Gran # (Auto) Neut # (Auto) Lymph # (Auto) [place] # (Auto) Eos # (Auto) Baso # (Auto) Absolute Nucleated RBC Nucleated RBC % (auto) PT 11.6 INR 1.1 Sample Site POC pH POC pCO2 POC pO2 POC HCO3 POC Total CO2 POC Base Excess ABG pH (Temp Correct) ABG pCO2 (Temp Corrct POC ABG pO2 at Pt Temp Tyler Test POC Sodium Sodium 137 POC Potassium Potassium 5.1 D Chloride 104 Carbon Dioxide 26 Anion Gap 7.0 BUN 27 H D Creatinine 6.26 H* D Est Cr Clr Drug Dosing 13.6 Est GFR ( Amer) 9.5 Est GFR (Non-Af Amer) 8.2 BUN/Creatinine Ratio 4.4 L Glucose 180 H POC Glucose 214 H Calcium 8.6 Nasal Screen MRSA (PCR) PG Care Time/CCT Total # of Minutes Spent Total Time Spent with Patient: Total time spent is greater than 50% in coordination of care (as documented) at patient's floor/unit and/or counseling patient: Coding Level of Care Code 15235 Inpt Consult Level 4 Diagnoses ESRD (end stage renal disease) N18.6
[2019-08-18] MEDS ORDERED: METOPROLOL TARTRATE 1 MG/ML VIAL IV ONE (10:54)
[2019-08-18] MEDS: METOPROLOL TARTRATE 1 MG/ML VIAL IV SCH ×3 (10:56→23:11)
--- NOTE | 2019-08-18 11:10 | Neurology Consultation ---
Date of Consultation August 18, 2019 Assessment & Plan (1) Seizure: Observed focal seizure activity following left carotid endarterectomy complicated by a probable perioperative left hemispheric stroke. Interestingly, the observed jerking of the left arm and twitching of the left side of the face would localize to the right cerebral hemisphere. Patient's EEG this morning reveals left posterior focal slowing consistent with his chronic left hemispheric infarct, no epileptiform abnormalities. Continue with Keppra 500 mg IV every 12 hours. (2) Stroke: Dense right hemiplegia and associated expressive aphasia following extubation status post left carotid endarterectomy yesterday. Suspect perioperative left MCA infarct, more anterior to his known chronic posterior left MCA infarct. A post ictal/Napoleon's paralysis is also possible but would not really be consistent with the observed focal seizure activity that would localize to the right cerebral hemisphere, as reported by nursing staff and the critical care physician. If his right hemiplegia and aphasia are due to a Napoleon's paralysis than I would expect improvement over the next 24 to 48 hours. However, his examination seems much more consistent with interval development of a left hemispheric infarct. As he is unable to have an MRI due to his cardiac pacer I would recommend a repeat CT of the head to be completed tonight. Avoid aggressive reduction in blood pressure to prevent hypoperfusion injury. Current systolic blood pressure goal 140 to 160 mmHg. Resume warfarin, aspirin and statin therapy when medically appropriate. History of Present Illness Reason for Consultation: Seizure and stroke Requesting Physician: JULIUS Esparza Attending Physician: Damien Jennings MD History of Present Illness The patient is a 69-year-old male who underwent left carotid endarterectomy yesterday and unfortunately was found to have a severe right hemiplegia affecting the face arm and leg following extubation. A CT of the head at that time revealed a chronic left cerebral infarct. A CT angiogram of the neck revealed interval left endarterectomy with the left carotid system now patent, without significant stenosis. At around 7:25 last night, the patient was observed to have seizure-like activity described as jerking type movements of the left upper extremity, left facial twitching, and a period of verbal nonresponsiveness. Symptoms persisted for about 1 minute and resolved. He was started on Keppra. An EEG completed this morning revealed focal left posterior slowing and a generalized encephalopathy. This morning, the patient continues to display a significant right hemiplegia affecting the face arm and leg as well as a significant expressive aphasia. No abnormal movements or seizure-like activity observed at the time of my assessment. He is able to follow simple commands with the left side of the body, will track objects, and seems to have intact language comprehension. Past medical history is notable for a right carotid endarterectomy on July 13, 2019 for a symptomatic stenosis that had presented with a TIA localizing to the right cerebral hemisphere. History also notable for a moderately large sized chronic posterior left MCA infarct discovered on imaging, atrial fibrillation, with cardiac pacer, diabetic peripheral neuropathy, hypertension, hyperlipidemia, end-stage renal disease on hemodialysis and COPD. I had evaluated this patient during his last admission to the [facility] on July 10 in the context of transient dysarthria and left hemiparesis consistent with a TIA localizing to the right cerebral hemisphere. At that time, he was found to have bilateral stenosis of the internal carotid arteries with the right carotid 60% but likely symptomatic in light of his TIA, and the left carotid 80 to 90%, but not causing symptoms at that time. Please see my consultation report from July 10, 2019 for further details regarding this initial evaluation. Allergies Allergy/AdvReac Type Severity Reaction Status Date / Time promethazine Allergy Intermediate UNCONTROLLED Verified 08/17/19 07:52 MUSCLE MOVEMENTS codeine AdvReac Intermediate "trips me Verified 08/17/19 07:52 out" Home Medications Home Medications Medication Instructions Recorded Confirmed Type allopurinol 300 mg PO QAM 02/05/18 08/17/19 History aspirin [Aspir-81] 81 mg PO QAM 02/05/18 08/17/19 History atorvastatin 80 mg PO HS 02/05/18 08/17/19 History loratadine [Claritin] 10 mg PO QAM 02/05/18 08/17/19 History melatonin 10 mg PO 02/05/18 08/17/19 History nitroglycerin 0.3 mg SUBLINGUAL DIRECTED PRN 02/05/18 08/17/19 History pantoprazole 40 mg PO QAM 02/05/18 08/17/19 History PreserVision AREDS-2 1 tab PO QAM 02/16/18 08/17/19 History cholecalciferol (vitamin D3) 2,000 unit PO QAM 02/16/18 08/17/19 History [Vitamin D3] cyanocobalamin (vitamin B-12) 1,000 mcg PO QAM 02/16/18 08/17/19 History [Vitamin B-12] hydralazine 25 mg PO TID 05/15/18 08/17/19 History thiamine HCl (vitamin B1) 100 mg 100 mg PO QAM tab 12/22/18 08/17/19 History tablet albuterol sulfate 2 puff INHALATION Q4H PRN 02/12/19 08/17/19 History budesonide-formoterol [Symbicort] 2 puff INHALATION BID 02/12/19 08/17/19 History fluticasone propionate 1 spray INTRANASAL DAILY PRN 02/12/19 08/17/19 History isosorbide mononitrate 30 mg PO QAM 02/12/19 08/17/19 History tiotropium bromide [Spiriva with 1 cap INHALATION QAM 02/13/19 08/17/19 History HandiHaler] glipizide 5 mg PO QAM 04/22/19 08/17/19 History clonazepam [Klonopin] 0.5 mg PO DAILY PRN 05/03/19 08/17/19 History ascorbic acid (vitamin C) 1,000 mg PO QAM 07/09/19 08/17/19 History sevelamer carbonate [Renvela] 800 mg PO TIDM 07/09/19 08/17/19 History venlafaxine 75 mg PO QAM 07/09/19 08/17/19 History warfarin 2.5 mg PO DAILY #0 tab 07/17/19 08/17/19 Rx hydroxyzine HCl 25 mg PO HS 08/04/19 08/17/19 History polyethylene glycol 3350 [Miralax] 17 g PO BID PRN 08/04/19 08/17/19 History sennosides [senna] 17.2 mg PO DAILY PRN 08/04/19 08/17/19 History trazodone 150 mg PO HS 08/04/19 08/17/19 History enoxaparin [Lovenox] 80 mg SUBCUT DAILY 08/17/19 08/17/19 History metoprolol tartrate 50 mg PO BID 08/17/19 08/17/19 History Patient History Medical History Anemia Anxiety Atrial fibrillation DX 2006 - NO HX CARDIOVERSION Cancer HX OF BLADDER HX OF PROSTATE Carotid stenosis, bilateral CHF (congestive heart failure) Chronic back pain Chronic obstructive pulmonary disease on 2 L O2 prn, 3L HS with BiPAP (not using BiPAP currently due to mask issues) Coronary arteriosclerosis S/P BMS to RCA November 2012 Depression Diabetes mellitus, type 2 NIDDM Dialysis patient MON, WED AND FRI (RIGHT SHOULDER AREA CURRENT ACCESS) ESRD (end stage renal disease) on dialysis GERD (gastroesophageal reflux disease) Gout continue allopurinol for prophylaxis Hiatal hernia History of kidney stones Hyperlipidemia Hypertension Morbid obesity Osteoarthritis Pacemaker 2011 IMPLANTED FOR A-FIB Peripheral neuropathy Post traumatic stress disorder Presence of urostomy Sleep apnea BIPAP Stroke NOVEMBER 2017- SLURRED SPEECH/LEFT FOOT WEAKNESS- CT SCAN SHOWED EVIDENCE OF AN OLD STROKE- ? EXACT DATE RESIDUAL LEFT SIDED WEAKNESS TIA (transient ischemic attack) 07/09/2019 during hospital admission- did not receive thrombolytic therapy- dysarthria and left arm weakness improved. Unable to obtain MRI due to pacemaker Surgical History History of biopsy of bladder (Resolved) History of cardiac cath (Resolved) STENT PLACED 2011 History of carotid endarterectomy right carotid 07/13/[address] Jennings History of cataract surgery (Resolved) RT/LEFT History of cholecystectomy (Resolved) History of colonoscopy History of laminectomy (Resolved) LUMBAR History of prostatectomy (Resolved) History of tooth extraction (Resolved) History of urologic surgery FOR KIDNEY STONE History of urostomy BLADDER REMOVED D/T CANCER STOMA REVISED History of vascular access device right femoral line in currently. Pericardial disease (Resolved) PERICARDIAL WINDOW/MICROSCOPIC ([facility]) 2013 S/P arteriovenous (AV) fistula creation right arm (05/2019) Family History Other Family history non-contributory Denies family history of Stroke Social History Preferred Language: [place] Communication Ability: Impaired Communication Ability Comment: Need to re-assess with evolution of process Industrial Accountant Required: No Beliefs That Will Affect Care: None marital status: Current Living Situation: Spouse Current Living Situation Comment: pt and his live with their dtr current occupational status: retired Other Information That Helps Us Care for You: No Feels Safe at Home: Yes Safety Concerns: Feels Safe At This Time Smoking Status: Former smoker Tobacco Type: cigarettes ; Do You Dip or Chew Tobacco: No ; Smoking End Date: 06/2000 ; Second Hand Exposure: No ; Tobacco Cessation Education Requested by Patient: No Hx Alcohol Use: No Hx Substance Use: No Review of Systems Review of Systems: Unobtainable due to cognitive status Physical Exam Physical Exam: The patient is a well-developed, well-nourished elderly male. He is moderately inattentive. He is able to follow simple commands and appears to have intact language comprehension. Otherwise, however, memory, concentration, and fund of knowledge cannot be assessed due to a significant expressive aphasia. He is unable to name objects or repeat phrases. Visual baugh full to threat. Visual acuity cannot be reliably assessed. Pupils equal round reactive to light and accommodation. Eye movements intact. There is no gaze preference, ophthalmoplegia, or nystagmus. Facial sensation intact. There is a right lower facial droop noted. Hearing grossly intact. Palate elevates to midline. There is weakness of right shoulder shrug. Tongue protrudes to midline. Sensory examination cannot be reliably assessed due to poor attention and altered mental status. Deep tendon reflexes are relatively increased for the right arm and leg with an associated upgoing toe on the right. Left toe equivocal with plantar stimulation. DTRs for the left arm and leg normal. Patient is able to perform [id number] and [id number] on the left without obvious dysmetria. Unable to perform these maneuvers on the right due to a dense hemiplegia. Ophthalmoscopic examination reveals normal-appearing optic disks and posterior segments. No papilledema or hemorrhages. Carotid pulse normal on the right, with no associated bruit to auscultation. Unable to assess left due to postsurgical dressing. Gait and station cannot be assessed due to dense hemiplegia, current medical condition. Patient exhibits a dense right hemiplegia affecting the face arm and leg, strength 0 out of 5 for the arm and leg. Tone flaccid for the right arm and leg, normal for the left arm and leg. No abnormal movements observed. Results & Data Vital Signs (Past 12 Hours) Vital Signs Temp Pulse Resp BP Pulse Ox 08/18/19 09:08 68 22 144/73 H 100 08/18/19 08:55 60 14 155/58 H 96 08/18/19 07:54 62 16 167/54 H 95 08/18/19 07:10 37.1 C 62 16 148/43 H 99 08/18/19 06:54 62 10 L 180/56 H 99 08/18/19 06:00 60 16 97 08/18/19 05:56 60 17 155/58 H 99 08/18/19 05:30 60 26 H 100 08/18/19 05:00 60 22 95 08/18/19 04:55 60 23 104/45 L 95 08/18/19 03:54 61 17 159/64 H 96 08/18/19 03:48 37.1 C 08/18/19 03:30 62 18 93 08/18/19 03:00 62 15 97 08/18/19 02:55 60 14 162/53 H 98 08/18/19 02:30 61 24 95 08/18/19 02:00 60 23 96 08/18/19 01:55 60 13 136/59 L 96 08/18/19 01:30 60 16 95 08/18/19 01:00 60 14 97 08/18/19 00:55 64 12 161/41 H 98 08/18/19 00:30 67 18 98 08/18/19 00:02 63 18 169/59 H 98 08/18/19 00:00 37.1 C 69 18 100 08/17/19 23:55 65 20 163/100 H 100 08/17/19 23:30 60 14 96 08/17/19 23:24 60 21 125/40 L 95 08/17/19 23:06 60 08/17/19 23:00 60 20 96 08/17/19 22:54 60 17 125/40 L 91 08/17/19 22:53 60 18 122/39 L 93 08/17/19 22:39 62 21 159/53 H 96 08/17/19 22:30 71 18 95 Laboratory Results WBC 8.61, hemoglobin 10.3, hematocrit 32.1, platelet count 163, sodium 137, potassium 5.1, BUN 27, creatinine 6.26, glucose [address] of the head completed yesterday is negative for hemorrhage or acute process. There is a chronic left posterior parietal infarct as well as chronic small vessel ischemic disease. I reviewed the images as well as the radiologist's interpretation of this test. A CT angiogram of the head is negative for stenosis, occlusion, or aneurysm. A CT angiogram of the neck reveals changes consistent with interval left endarterectomy, the left carotid system is now patent with no significant stenosis. No change in the right carotid system compared with the prior examination. An EEG completed this morning reveals high amplitude focal slowing overlying the left posterior head region consistent with an underlying structural or functional abnormality. There are also changes suggestive of a moderate diffuse encephalopathy. No evidence of seizure activity at this time. Coding Level of Care Code 74347 Initial In Care Lvl 3 Diagnoses Seizure R56.9 Stroke I63.9
--- NOTE | 2019-08-18 12:19 | Surgery Progress Note ---
Date of Service August 18, 2019 Assessment & Plan (1) S/P carotid endarterectomy: Incision site without complication (2) Cerebrovascular accident (CVA): He may be slightly improved from immediately post op. Will need PT/OT and speech therapy. Will need rehab placement. Will continue steroids and anticonvulsants in case he has post endarterectomy reperfusion injury. Subjective Patient is awake. Can not answer questions appropriately due to expressive aphasia. He is in bed moving his left side. Physical Exam Constitutional: WD/WN, vitals as above ENMT: tongue midline Neck: trachea midline incision dry and clean. minimal swelling Neurologic: CN's II-XI intact bilaterally and + focal motor deficit (right side paralysis) Speech / Cognition: + abnormal speech (expressive aphasia) no seizure activity seen at this time Results & Data Vital Signs (Past 12 Hours) Vital Signs Temp Pulse Resp BP Pulse Ox 08/18/19 10:56 66 168/64 H 08/18/19 09:54 60 17 157/70 H 96 08/18/19 09:08 68 22 144/73 H 100 08/18/19 08:55 60 14 155/58 H 96 08/18/19 07:54 62 16 167/54 H 95 08/18/19 07:10 37.1 C 62 16 148/43 H 99 08/18/19 06:54 62 10 L 180/56 H 99 08/18/19 06:00 60 16 97 08/18/19 05:56 60 17 155/58 H 99 08/18/19 05:30 60 26 H 100 08/18/19 05:00 60 22 95 08/18/19 04:55 60 23 104/45 L 95 08/18/19 03:54 61 17 159/64 H 96 08/18/19 03:48 37.1 C 08/18/19 03:30 62 18 93 08/18/19 03:00 62 15 97 08/18/19 02:55 60 14 162/53 H 98 08/18/19 02:30 61 24 95 08/18/19 02:00 60 23 96 08/18/19 01:55 60 13 136/59 L 96 08/18/19 01:30 60 16 95 08/18/19 01:00 60 14 97 08/18/19 00:55 64 12 161/41 H 98 08/18/19 00:30 67 18 98
--- NOTE | 2019-08-18 12:51 | Anesthesiology Progress Note ---
Date of Service August 18, 2019 Patient able to answer yes and no questions. Hx of CVA preoperatively. VSS. Awake, alert cooperative. Unable to verbalize without slurring. Anesthesia Post Procedure Vital Signs Vital Signs: Temp Pulse Pulse Resp BP BP Pulse Ox 08/18/19 12:30 60 156/74 H 08/18/19 12:15 60 176/68 H 08/18/19 12:00 62 178/81 H 08/18/19 11:35 36.7 C 62 08/18/19 10:56 66 168/64 H 08/18/19 09:54 60 17 157/70 H 96 08/18/19 09:08 68 22 144/73 H 100 08/18/19 08:55 60 14 155/58 H 96 08/18/19 07:54 62 16 167/54 H 95 08/18/19 07:10 37.1 C 62 16 148/43 H 99 08/18/19 06:54 62 10 L 180/56 H 99 08/18/19 06:00 60 16 97 08/18/19 05:56 60 17 155/58 H 99 08/18/19 05:30 60 26 H 100 08/18/19 05:00 60 22 95 08/18/19 04:55 60 23 104/45 L 95 08/18/19 03:54 61 17 159/64 H 96 08/18/19 03:48 37.1 C 08/18/19 03:30 62 18 93 08/18/19 03:00 62 15 97 08/18/19 02:55 60 14 162/53 H 98 08/18/19 02:30 61 24 95 08/18/19 02:00 60 23 96 08/18/19 01:55 60 13 136/59 L 96 08/18/19 01:30 60 16 95 08/18/19 01:00 60 14 97 08/18/19 00:55 64 12 161/41 H 98 08/18/19 00:30 67 18 98 08/18/19 00:02 63 18 169/59 H 98 08/18/19 00:00 37.1 C 69 18 100 08/17/19 23:55 65 20 163/100 H 100 08/17/19 23:30 60 14 96 08/17/19 23:24 60 21 125/40 L 95 08/17/19 23:06 60 03/17/20 23:00 60 20 96 08/17/19 22:54 60 17 125/40 L 91 08/17/19 22:53 60 18 122/39 L 93 08/17/19 22:39 62 21 159/53 H 96 08/17/19 22:30 71 18 95 08/17/19 22:15 69 22 100 08/17/19 22:08 63 13 163/51 H 97 08/17/19 22:00 81 24 100 08/17/19 21:54 62 18 175/52 H 97 08/17/19 21:45 64 27 H 97 08/17/19 21:39 69 22 145/98 H 100 08/17/19 21:30 60 24 99 08/17/19 21:23 60 27 H 156/43 H 100 08/17/19 21:15 60 16 100 08/17/19 21:08 60 16 133/37 L 99 08/17/19 21:00 60 14 98 08/17/19 20:53 60 24 122/36 L 93 08/17/19 20:45 60 21 97 08/17/19 20:39 61 21 98 08/17/19 20:38 62 19 106/31 L 98 08/17/19 20:23 60 17 112/32 L 98 08/17/19 20:22 60 22 100/49 L 98 08/17/19 20:00 37.1 C 08/17/19 19:54 65 16 177/44 H 98 08/17/19 19:52 168/81 H 98 08/17/19 19:45 65 20 08/17/19 19:30 65 14 08/17/19 19:15 60 17 94 08/17/19 19:05 60 15 167/98 H 08/17/19 19:00 60 14 95 08/17/19 18:15 37.1 C 60 18 170/58 H 97 08/17/19 17:46 60 17 166/64 H 97 08/17/19 16:45 60 13 162/59 H 99 08/17/19 16:15 60 14 151/57 H 99 08/17/19 16:00 60 08/17/19 15:45 60 19 152/85 H 100 08/17/19 15:12 37.1 C 63 18 169/60 H 100 08/17/19 15:07 66 24 154/76 H 100 08/17/19 15:06 72 20 100 08/17/19 15:03 62 20 157/46 H 96 08/17/19 14:57 62 20 147/51 H 96 08/17/19 14:52 62 24 132/97 98 08/17/19 14:46 37 C 78 16 156/66 H 100 Notes Mental Status: alert / awake / arousable Nausea / Vomiting: adequately controlled Pain: adequately controlled Airway Patency, RR, SpO2: stable & adequate BP & HR: stable & adequate Hydration State: stable & adequate
--- NOTE | 2019-08-18 13:22 | Billing Data ---
Date of Service August 17, 2019 Coding Level of Care Code 24587 Inpt Consult Level 5
--- NOTE | 2019-08-18 14:03 | Pharmacy Report ---
Pharmacy Glycemic Short Note 2 - Date of Service August 18, 2019 - Glycemic Short BSG Results (Last 24 hours): 08/17/19 08/17/19 08/17/19 15:08 17:46 23:56 Glucose POC Glucose 174 H 156 H 189 H 08/18/19 08/18/19 08/18/19 04:28 05:53 11:54 Glucose 180 H POC Glucose 214 H 162 H OUTPATIENT ANTIDIABETIC REGIMEN: * glipizide 5mg daily * A1C: 7.4% 07/10/19 ASSESSMENT: * Patient presenting to the icu post L CEA, now experiencing hyperglycemia likely exacerbated by IV steroids * Patient NPO for now. Will utilize a more aggressive NovoLog scale but conservative lantus dose this morning. If patient is ordered a diet and/or evening BSG elevated, may consider giving an additional lantus dose. * Noon BSG downtrended nicely. PLAN FOR INPATIENT GLYCEMIC CONTROL: * Hold outpatient oral diabetes medications * Basal insulin * Lantus 10 units SQ this morning * Bolus insulin * NovoLog per scale ACHS or Q6hrs while NPO * Goal Range: Low 110 mg/dL - High 150 mg/dL * Correction Factor: 20 mg/dL/unit * Nutritional / Prandial insulin per carb ratio of 1 unit per 7 grams CHO consumed
[2019-08-18] MEDS: HEPARIN SOD 5,000 UNIT/0.5 ML VIAL SQ SCH ×2 (14:35→20:58)
[2019-08-18] MEDS: FAMOTIDINE 20 MG in SYRINGE 3 ML IV SCH (14:35)
[2019-08-18] MEDS ORDERED: WARFARIN SOD 5 MG TAB PO SCH (16:00)
--- NOTE | 2019-08-18 20:26 | Billing Data ---
Date of Service August 18, 2019 Coding Level of Care Code 03697 Subseq Hosp Care Lvl 3
--- NOTE | 2019-08-18 20:51 | CT Scan Report ---
CT head/brain wo con CLINICAL HISTORY: 69 years-old Male with R hemiplegia. Acute strokelike symptoms TECHNIQUE: Multiple axial CT images of the head were obtained without contrast. A dose lowering tech nique was utilized adhering to the principles of ALARA. CT DOSE: 614.27 mGy.cm COMPARISON: Head CT, CTA head and neck 08/17/2019, head CT 07/11/1999 FINDINGS: No acute intracranial hemorrhage, midline shift, intracranial mass, hydrocephalus, or abnormal extra- axial collection. Encephalomalacia from remote left parietal infarct. Ill-defined area of decreased a ttenuation with blurring the kwon-white interface involves the left parietal lobe anterior to the are a of remote infarct, image 23 series 2 compatible with cytotoxic edema associated with acute infarct which measures up to approximately 4.1 x 5.0 cm. Age-related involutional changes. Patchy white matte r hypodensities suggest chronic microvascular ischemic disease. The calvarium is intact. Prior bilateral lens replacement. The paranasal sinuses, mastoid air cells, and middle ear cavities are clear. IMPRESSION: Acute infarct of the left parietal lobe measures up to 5.0 cm anterior to the area of en cephalomalacia related to remote infarct. No midline shift or intracranial hemorrhage. ACT 112: Negative or not required by law. The above report was generated using voice recognition software. It may contain grammatical, syntax o r spelling errors. Electronically signed by: Theo Noel M.D. 08/18/2019 8:50 PM
[2019-08-18] MEDS ORDERED: FAMOTIDINE 20 MG in SYRINGE 3 ML IV SCH (21:00)
[2019-08-19] MEDS: LABETALOL HCL IV 5 MG/ML 20ML IV PRN (01:06)
[2019-08-19] MEDS: HydrALAZINE HCL 20 MG/ML VIAL IV PRN (04:11)
[2019-08-19 04:20] LABS: Hematocrit (blood only) 31.9 % (42-52); Immature Granulocytes # (auto) 0.03 K/uL (0.00-0.02); Immature Granulocytes % (auto) 0.3 %; Lymphocytes # (auto) 0.34 K/uL (1.2-3.4); Lymphocytes % (auto) 3.1 %; Mean Corpuscular Hemoglobin 32.1 pg (25-34); Mean Corpuscular Hgb Conc 31.3 g/dL (32-36); Mean Corpuscular Volume 102.2 fL (80-100); Mean Platelet Volume 11.1 fL (7.4-10.4); Monocytes # (auto) 0.45 K/uL (0.11-0.59); Monocytes % (auto) 4.1 %; Neutrophils # (auto) 10.04 K/uL (1.4-6.5); Neutrophils % (auto) 92.5 %; Nucleated RBC # (auto) 0.02 K/uL (0-0); Nucleated RBC % (auto) 0.2 %; Platelet Count 188 K/uL (130-400); RDW Coefficient of Variation 16.5 % (11.5-14.5); RDW Standard Deviation 61.9 fL (36.4-46.3); Red Blood Count 3.12 M/uL (4.7-6.1); White Blood Count 10.86 K/uL (4.8-10.8)
[2019-08-19 04:31] LABS: INR 1.3 (0.9-1.1); Prothrombin Time 13.5 Seconds (9.0-12.0)
[2019-08-19 04:39] LABS: BUN Creatinine Ratio 5.2 (10-20); Calcium 9.2 mg/dl (8.5-10.1); Creatinine Clr Calc Pharmacy 19.7 ml/min; Est GFR (African American) 14.8; Est GFR (Non-African American) 12.7; Magnesium 2.1 mg/dl (1.8-2.4)
[2019-08-19 04:40] LABS: Potassium 4.1 mmol/L (3.5-5.1)
[2019-08-19] MEDS: HEPARIN SOD 5,000 UNIT/0.5 ML VIAL SQ SCH ×3 (05:58→20:37)
[2019-08-19] MEDS: METOPROLOL TARTRATE 1 MG/ML VIAL IV SCH ×4 (05:59→23:31)
[2019-08-19] MEDS: INSULIN ASPART 100 UNITS/ML 3 ML PEN SC SCH ×4 (06:11→23:31)
[2019-08-19] MEDS ORDERED: STAT IV Infusion **Titration per Protocol STA (07:27)
--- NOTE | 2019-08-19 07:30 | Critical Care Progress Note ---
Date of Service August 19, 2019 Assessment & Plan (1) Stenosis of left internal carotid artery: Rick Carlson is a 69 yo M with PMH significant for ESRD on HD, CHF, HTN, CAD, pacemaker, COPD, GOUT, DMII, a fib, and TIA in past; admitted for L CEA, following the procedure and being extubated, had R sided weakness and inability to move those limbs. Neuro: - [facility] ICU: unable to assess due to cognitive status, only responds in grunts and nods or shakes of the head - after extubation in post-operative side, had R sided hemiplegia - intra-operative Fluoro did not visualize occlusions in L cerebral vessels - CT head did not demonstrate an acute intracranial abnormality - CTA Head did not demonstrate significant stenosis, occlusion, or aneurysm within the [place] - CTA Neck demonstrated left carotid system patent without significant stenosis - goal Systolic BP<140 - Neurology consulted - CT Head: demonstrated an acute infarct of the left parietal lobe measuring up to 5.0 cm - EEG per report demonstrated high amplitude focal slowing overlying the left posterior head regions suggesting an underlying structural or functional abnormality. There is no evidence of seizure activity at this time - PT/OT consulted Cardiac/Vascular: - patient with pacemaker in place for control of A. fib - prior to procedure was consistently V-paced - patient is currently still V-paced on telemetry - goal for systolic BP<140; persistent SBP>160 despite 5mg Lopressor BONIFACIO, and regular PRN medication - started on Nicardipine drip, and increased Lopressor to 10mg Q6h - discontinued Labetalol & Hydralazine Respiratory: - patient has COPD, supposed to be on BiPAP nightly at home, and O2 support throughout the day, but he does not utilize either - 08/16 ABG: pH 7.36, pCO2 42.2 pO2 86 - maintaining sats >90% with 2L NC - patient continuing to attempt to clear oral secretions on his own, scant thick oropharyngeal discharge suctioned GI/Nutrition: - NPO - Speech eval: remain NPO - Video swallow study scheduled for 830 08/19 Renal/Lytes: - patient has ESRD, gets HD MWF - Hemodialysis today 0.5L removed - Nephrology consulted : - patient has urostomy over abdomen - still produces scant amount of urine despite ESRD ENDO: - T2DM on oral glipizide at home - holding home regimen - ICU hyperglycemia protocol HEME: - H&H stable as compared to previous hospitalizations ID: - given Cefazolin in post-operative period - no concerns for infectious disease at this point Lines/IV Access: - peripheral IVs - R femoral permacath DVT Prophylaxis: - Heparin SQ Admission and Anticipated Discharge Date Admission Date: August 17, 2019 Supervising Physician Co-Signing Physician Notes Dr. Oates was resident physician during care of patient. I separately evaluated patient for rodriguez portions of the history and the exam. I was present during the critical portion of medical decision making, and I discussed the case with the resident. I generally agree with the findings and plan. Reviewed neurology recommendations. Awaiting formal swallow study, patient critically ill due to need for nicardipine for blood pressure control to prevent hemorrhagic transformation. Subjective Patient is awake, and arousable to verbal stimulation, continues to respond in verbal grunts and moans. Has had reduced frequency of grunting/hacking overnight. Systolic BP consistently >160 overnight despite PRN medications. Review of Systems Review of Systems: Unobtainable due to cognitive status Physical Exam Constitutional: WD/WN, vitals as above + morbidly obese Eyes: PERRL and normal accommodation ENMT: external ear and nose normal, oropharynx normal Respiratory: normal respiratory effort Auscultation: no crackles, no rales, no rhonchi and no wheezes Cardiovascular: Rate/Rhythm: regular rate and regular rhythm Heart Sounds: normal S1 and normal S2; no gallop, no murmur and no cardiac rub Vessels: no JVD Extremities: no pedal edema Gastrointestinal (Abdomen): normal bowel sounds, soft, nontender, no hepatosplenomegaly Musculoskeletal: Head/Neck/Chest: normocephalic and head atraumatic Extremities: + abnormal strength Skin: no rashes, warm and dry Neurologic: awake and + confused Speech / Cognition: + expressive aphasia (continues to attempt communication but only grunts and moans) Motor/Sensory: + abnormal movement (2/5 of RUE & RLE) Cranial Nerves: EOM intact bilaterally, tongue midline and able to rotate head bilaterally pain proprioception abnormal in all extremities Psychiatric: Orientation: alert; + not oriented to person, + not oriented to place and + not oriented to time Lymphatic: no cervical or axillary lymphadenopathy Results & Data ([facility]) Vital Signs (Past 12 Hours) Vital Signs Temp Pulse Pulse Resp BP BP Pulse Ox 08/19/19 06:00 60 15 199/74 H 100 08/19/19 05:59 65 199/74 H 08/19/19 05:00 65 20 155/51 H 94 08/19/19 04:00 36.8 C 70 18 162/59 H 95 08/19/19 03:00 63 20 161/54 H 96 08/19/19 02:00 67 14 185/61 H 95 08/19/19 01:00 61 17 167/60 H 94 08/19/19 00:00 36.8 C 66 12 178/79 H 97 08/18/19 23:11 63 164/53 H 08/18/19 23:00 61 18 164/53 H 96 08/18/19 22:00 65 14 132/59 L 95 08/18/19 21:30 72 21 93 08/18/19 21:00 72 19 171/84 H 95 08/18/19 20:30 63 19 96 08/18/19 20:00 37.4 C 72 20 156/72 H 99 Laboratory Results 08/19/19 08/19/19 08/19/19 Range/Units 06:08 04:08 04:08 WBC 10.86 H (4.8-10.8) K/uL RBC 3.12 L (4.7-6.1) M/uL Hgb 10.0 L (14.0-18.0) g/dL Hct 31.9 L (42-52) % MCV 102.2 H (80-100) fL MCH 32.1 (25-34) pg MCHC 31.3 L (32-36) g/dL RDW Std Deviation 61.9 H (36.4-46.3) fL RDW Coeff of Dacia 16.5 H (11.5-14.5) % Plt Count 188 (130-400) K/uL MPV 11.1 H (7.4-10.4) fL Immature Gran % (Auto) 0.3 % Neut % (Auto) 92.5 % Lymph % (Auto) 3.1 % [place]rack[place] % (Auto) 4.1 % Eos % (Auto) 0.0 % Baso % (Auto) 0.0 % Immature Gran # (Auto) 0.03 H (0.00-0.02) K/uL Neut # (Auto) 10.04 H (1.4-6.5) K/uL Lymph # (Auto) 0.34 L (1.2-3.4) K/uL [place] # (Auto) 0.45 (0.11-0.59) K/uL Eos # (Auto) 0.00 (0-0.5) K/uL Baso # (Auto) 0.00 (0-0.2) K/uL Absolute Nucleated RBC 0.02 H (0-0) K/uL Nucleated RBC % (auto) 0.2 % PT (9.0-12.0) Seconds INR (0.9-1.1) Sodium 136 (136-145) mmol/L Potassium 4.1 D (3.5-5.1) mmol/L Chloride 103 (98-107) mmol/L Carbon Dioxide 24 (21-32) mmol/L Anion Gap 9.0 (3-11) BUN 23 H (7-18) mg/dl Creatinine 4.35 H D (0.6-1.4) mg/dl Est Cr Clr Drug Dosing 19.7 ml/min Est GFR ( Amer) 14.8 Est GFR (Non-Af Amer) 12.7 BUN/Creatinine Ratio 5.2 L (10-20) Glucose 176 H (70-99) mg/dl POC Glucose 185 H (70-99) mg/dl Calcium 9.2 (8.5-10.1) mg/dl Magnesium 2.1 (1.8-2.4) mg/dl 08/19/19 08/18/19 08/18/19 Range/Units 04:08 23:09 20:54 WBC (4.8-10.8) K/uL RBC (4.7-6.1) M/uL Hgb (14.0-18.0) g/dL Hct (42-52) % MCV (80-100) fL MCH (25-34) pg MCHC (32-36) g/dL RDW Std Deviation (36.4-46.3) fL RDW Coeff of [place]acia (11.5-14.5) % Plt Count (130-400) K/uL MPV (7.4-10.4) fL Immature Gran % (Auto) % Neut % (Auto) % Lymph % (Auto) % [place] % (Auto) % Eos % (Auto) % Baso % (Auto) % Immature Gran # (Auto) (0.00-0.02) K/uL Neut # (Auto) (1.4-6.5) K/uL Lymph # (Auto) (1.2-3.4) K/uL [place] # (Auto) (0.11-0.59) K/uL Eos # (Auto) (0-0.5) K/uL Baso # (Auto) (0-0.2) K/uL Absolute Nucleated RBC (0-0) K/uL Nucleated RBC % (auto) % PT 13.5 H (9.0-12.0) Seconds INR 1.3 H (0.9-1.1) Sodium (136-145) mmol/L Potassium (3.5-5.1) mmol/L Chloride (98-107) mmol/L Carbon Dioxide (21-32) mmol/L Anion Gap (3-11) BUN (7-18) mg/dl Creatinine (0.6-1.4) mg/dl Est Cr Clr Drug Dosing ml/min Est GFR ( Amer) Est GFR (Non-Af Amer) BUN/Creatinine Ratio (10-20) Glucose (70-99) mg/dl POC Glucose 140 H 144 H (70-99) mg/dl Calcium (8.5-10.1) mg/dl Magnesium (1.8-2.4) mg/dl 08/18/19 08/18/19 Range/Units 17:38 11:54 WBC (4.8-10.8) K/uL RBC (4.7-6.1) M/uL Hgb (14.0-18.0) g/dL Hct (42-52) % MCV (80-100) fL MCH (25-34) pg MCHC (32-36) g/dL RDW Std Deviation (36.4-46.3) fL RDW Coeff of [place]acia (11.5-14.5) % Plt Count (130-400) K/uL MPV (7.4-10.4) fL Immature Gran % (Auto) % Neut % (Auto) % Lymph % (Auto) % [place] % (Auto) % Eos % (Auto) % Baso % (Auto) % Immature Gran # (Auto) (0.00-0.02) K/uL Neut # (Auto) (1.4-6.5) K/uL Lymph # (Auto) (1.2-3.4) K/uL [place] # (Auto) (0.11-0.59) K/uL Eos # (Auto) (0-0.5) K/uL Baso # (Auto) (0-0.2) K/uL Absolute Nucleated RBC (0-0) K/uL Nucleated RBC % (auto) % PT (9.0-12.0) Seconds INR (0.9-1.1) Sodium (136-145) mmol/L Potassium (3.5-5.1) mmol/L Chloride (98-107) mmol/L Carbon Dioxide (21-32) mmol/L Anion Gap (3-11) BUN (7-18) mg/dl Creatinine (0.6-1.4) mg/dl Est Cr Clr Drug Dosing ml/min Est GFR ( Amer) Est GFR (Non-Af Amer) BUN/Creatinine Ratio (10-20) Glucose (70-99) mg/dl POC Glucose 162 H 162 H (70-99) mg/dl Calcium (8.5-10.1) mg/dl Magnesium (1.8-2.4) mg/dl Medications Administered Current Inpatient Medications Albuterol (Ventolin Hfa) 2 puffs INH Q4H PRN PRN Reason: sob Stop: 09/16/19 14:16 Allopurinol (Zyloprim) 300 mg PO [facility] Stop: 09/17/19 08:59 Last Admin: 08/18/19 09:15 Dose: Not Given Documented by: Ascorbic Acid (Vitamin C) [facility] Stop: 09/17/19 08:59 Last Admin: 08/18/19 09:14 Dose: Not Given Documented by: Aspirin (Ecotrin Ectab) 81 [facility] Stop: 09/17/19 08:59 Last Admin: 08/18/19 09:13 Dose: Not Given Documented by: Atorvastatin Calcium (Lipitor) 80 mg PO [facility] Stop: 09/16/19 20:59 Last Admin: 08/17/19 20:14 Dose: Not Given Documented by: Clonazepam (Klonopin) 0.5 mg PO DAILY PRN PRN Reason: Anxiety Stop: 09/16/19 14:16 Cyanocobalamin (Vitamin B-12) 1,000 mcg PO QAM [facility] Stop: 09/17/19 08:59 Last Admin: 08/18/19 09:14 Dose: Not Given Documented by: Dextrose (Dextrose 50%) 25 - 50 ml IV UD PRN; Protocol PRN Reason: Hypoglycemia Protocol Stop: 09/17/19 05:28 Fluticasone Propionate (Flonase) 1 sprays NA DAILY PRN PRN Reason: Congestion Stop: 09/16/19 14:16 Fluticasone/Vilanterol (Breo Ellipta 100/25 Mcg Inh) 1 puffs INH DAILY [facility] Stop: 09/17/19 08:59 Last Admin: 08/18/19 08:53 Dose: 1 puffs Documented by: Glipizide (Glucotrol) 5 mg PO DAILYBB [facility] Stop: 09/17/19 06:29 Last Admin: 08/18/19 05:32 Dose: Not Given Documented by: Glucagon (Glucagen) 1 mg SQ UD PRN; Protocol PRN Reason: Hypoglycemia Protocol Stop: 09/17/19 05:28 Glucose (Dex4 Glucose) 4 - 8 tabs PO UD PRN; Protocol PRN Reason: Hypoglycemia Protocol Stop: 09/17/19 05:28 Glucose (Glucose 40%) 15 - 30 gm PO UD PRN; Protocol PRN Reason: Hypoglycemia Protocol Stop: 09/17/19 05:28 Heparin Sodium (Porcine) (Heparin Sodium (Porcine)) 5,000 units SQ Q8 [facility] Stop: 09/17/19 13:59 Last Admin: 08/19/19 05:58 Dose: 5,000 units Documented by: Hydralazine HCl (Apresoline) 25 mg PO TID [facility] Stop: 09/16/19 14:59 Last Admin: 08/18/19 09:13 Dose: Not Given Documented by: Hydralazine HCl (Hydralazine Hcl) 10 mg IV Q4H PRN PRN Reason: systolic >140 Stop: 09/16/19 21:16 Last Admin: 08/19/19 04:11 Dose: 10 mg Documented by: Hydroxyzine HCl (Vistaril) 25 mg PO HS [facility] Stop: 09/16/19 20:59 Last Admin: 08/17/19 20:15 Dose: Not Given Documented by: Levetiracetam 500 mg/ Sodium (Chloride) 105 mls @ 420 mls/hr IV Q12H [facility] Stop: 09/17/19 08:59 Last Infusion: 08/18/19 22:00 Dose: Infused Documented by: Methylprednisolone 40 mg/ (Syringe) 0.64 mls @ 1.5 mls/min IV BID [facility] Stop: 09/16/19 20:59 Last Admin: 08/18/19 20:22 Dose: 1.5 mls/min Documented by: Famotidine 20 mg/ Syringe 5 mls @ 2.5 mls/min IV Q24H [facility] Stop: 09/17/19 14:59 Last Admin: 08/18/19 14:35 Dose: 2.5 mls/min Documented by: Nicardipine HCl 25 mg/ Sodium (Chloride) 250 mls @ 50 mls/hr IV .Q5H [facility]; Protocol Stop: 09/18/19 07:29 Insulin Aspart (Novolog Flexpen) 0 units SC Q6 [facility] Stop: 09/17/19 05:59 Last Admin: 08/19/19 06:11 Dose: 2 units Documented by: Ioversol (Optiray 320 125ml) 118 ml IV ONCE PRN PRN Reason: Interaction Checking Stop: 08/21/19 14:43 Last Admin: 08/17/19 14:45 Dose: 118 ml Documented by: Isosorbide Mononitrate (Imdur Extended Rel) [facility] Stop: 09/17/19 08:59 Last Admin: 08/18/19 09:14 Dose: Not Given Documented by: Labetalol HCl (Normodyne) 10 mg IV Q2H PRN PRN Reason: systolic >140 Stop: 09/16/19 21:16 Last Admin: 08/19/19 01:06 Dose: 10 mg Documented by: Loratadine (Claritin) 10 mg PO QAM [facility] Stop: 09/17/19 08:59 Last Admin: 08/18/19 09:13 Dose: Not Given Documented by: Metoprolol Tartrate (Lopressor) 50 mg PO BID [facility] Stop: 09/16/19 20:59 Last Admin: 08/18/19 09:14 Dose: Not Given Documented by: Metoprolol Tartrate (Lopressor) 5 mg IV Q6 [facility] Stop: 09/17/19 11:59 Last Admin: 08/19/19 05:59 Dose: 5 mg Documented by: Miscellaneous (Carbohydrates For Hypoglycemia) 15 - 30 gm PO UD PRN PRN Reason: Hypoglycemia Protocol Stop: 09/17/19 05:28 Miscellaneous Information (Consult Glycemic Management Pharmacy) 1 ea N/A UD PRN; Protocol PRN Reason: Consult Stop: 09/17/19 05:39 Morphine Sulfate (Morphine Sulfate) 1 - 4 mg IV Q2H PRN PRN Reason: Severe Pain Stop: 08/31/19 14:16 Last Admin: 08/18/19 20:22 Dose: 2 mg Documented by: Multivitamins/Minerals (Multivitamin W/ Minerals Tab) 1 tab PO QAM [facility] Stop: 09/17/19 08:59 Last Admin: 08/18/19 09:14 Dose: Not Given Documented by: Nitroglycerin (Nitrostat) 0.3 mg SL UD PRN PRN Reason: Chest Pain Stop: 09/16/19 14:16 Ondansetron HCl (Zofran) 4 mg IV Q6H PRN PRN Reason: Nausea Stop: 09/17/19 05:49 Oxycodone/Acetaminophen (Percocet 5mg/325mg) 1 - 2 tab PO Q4H PRN PRN Reason: Moderate Pain Stop: 08/31/19 14:16 Pantoprazole Sodium (Protonix) 40 mg PO QAM [facility] Stop: 09/17/19 08:59 Last Admin: 08/18/19 09:14 Dose: Not Given Documented by: Polyethylene Glycol (Miralax Powder Packet) 17 gm PO BID PRN PRN Reason: Constipation Stop: 09/16/19 14:16 Sennosides (Senokot) 17.2 mg PO DAILY PRN PRN Reason: Constipation Stop: 09/16/19 14:16 Sevelamer HCl (Renagel) 800 mg PO TIDM [facility] Stop: 09/16/19 16:59 Last Admin: 08/18/19 08:39 Dose: Not Given Documented by: Thiamine HCl (Vitamin B-1) 100 mg PO QAM [facility] Stop: 09/17/19 08:59 Last Admin: 08/18/19 09:14 Dose: Not Given Documented by: Trazodone HCl (Desyrel) 150 mg PO HS [facility] Stop: 09/16/19 20:59 Last Admin: 08/17/19 20:14 Dose: Not Given Documented by: Umeclidinium [place] (Incruse Ellipta) 1 puffs INH QAM [facility] Stop: 09/17/19 08:59 Last Admin: 08/18/19 08:54 Dose: 1 puffs Documented by: Venlafaxine HCl (Effexor Extended Release) 75 mg PO QAM [facility] Stop: 09/17/19 08:59 Last Admin: 08/18/19 09:13 Dose: Not Given Documented by: Vitamin D (Vitamin D3) 2,000 units PO QAM [facility] Stop: 09/17/19 08:59 Last Admin: 08/18/19 09:15 Dose: Not Given Documented by: Warfarin Sodium (Coumadin) 5 mg PO DAILY@1600 [facility] Stop: 09/17/19 15:59 Critical Care Time Critical Care Time: Yes Total Critical Care Time: 35 I have personally spent 35 minutes of critical care time in the direct management of this patient. This is a life/limb threatening event. This includes time spent evaluating patient, direct bedside care, chart review, placing orders, interpretation of diagnostic studies, discussion with consultants, patient, and/or family members regarding treatment decisions, as well as other required patient management activities. This time is exclusive of all separately billable procedures, and teaching time and separate from and in addition to any other critical care service time. Resident Activity Tracking Resident Involvement: Resident Care Provided Care Provided: Adult [facility] Medicine
--- NOTE | 2019-08-19 07:54 | Surgery Progress Note ---
Date of Service August 19, 2019 Assessment & Plan (1) S/P carotid endarterectomy: Incision site without complication (2) Cerebrovascular accident (CVA): Has significant new stroke of left hemisphere. Continue present tx. Subjective Patient is awake. Does answer questions but speech somewhat garbled. Physical Exam Constitutional: WD/WN, vitals as above He continues to be hypertensive Neck: trachea midline Incision dry and clean Neurologic: CN's II-XI intact bilaterally and + focal motor deficit (right side paralysis) Speech / Cognition: + abnormal speech (expressive aphasia) Results & Data Vital Signs (Past 12 Hours) Vital Signs Temp Pulse Pulse Resp BP BP Pulse Ox 08/19/19 06:00 60 15 199/74 H 100 08/19/19 05:59 65 199/74 H 08/19/19 05:00 65 20 155/51 H 94 08/19/19 04:00 36.8 C 70 18 162/59 H 95 08/19/19 03:00 63 20 161/54 H 96 08/19/19 02:00 67 14 185/61 H 95 08/19/19 01:00 61 17 167/60 H 94 08/19/19 00:00 36.8 C 66 12 178/79 H 97 08/18/19 23:11 63 164/53 H 08/18/19 23:00 61 18 164/53 H 96 08/18/19 22:00 65 14 132/59 L 95 08/18/19 21:30 72 21 93 08/18/19 21:00 72 19 171/84 H 95 08/18/19 20:30 63 19 96 08/18/19 20:00 37.4 C 72 20 156/72 H 99
[2019-08-19] MEDS: UMECLIDINIUM BROMIDE 62.5MCG/BLISTER 7 PUFFS/INHALER INH SCH (08:18)
[2019-08-19] MEDS: FLUTICASONE/VILANTEROL 100/25MCG 14 PUFFS/INHALER INH SCH (08:18)
[2019-08-19] MEDS: methylPREDNISolone 40 MG in SYRINGE 0 ML IV SCH (08:21)
[2019-08-19] MEDS: levETIRAcetam 500 MG in 0.9 % SODIUM CHLORIDE 100 ML IV SCH ×2 (08:21→20:37)
[2019-08-19] MEDS ORDERED: FAMOTIDINE 20 MG in SYRINGE 3 ML IV SCH (09:00)
[2019-08-19] MEDS ORDERED: LANTUS PER UNIT CHARGE SQ ONE (09:00)
--- NOTE | 2019-08-19 09:26 | Neurology Progress Note ---
Date of Service August 19, 2019 Assessment & Plan (1) Cerebrovascular accident (CVA): Acute, evolving, left MCA territory infarct measuring about 5 cm, involving the cerebral cortex, just anterior to this patient's previous, more posterior left MCA infarct. His acute infarct occurs perioperatively in the context of a left carotid endarterectomy done 2 days ago with clinical symptoms noted upon extubation. He has a dense right hemiplegia and associated mixed aphasia, expressive greater than receptive. He is inattentive and mildly agitated as well. He remains hypertensive and is receiving several IV antihypertensives on an as-needed basis. No evidence of hemorrhagic transformation of his acute infarct although there is some associated cytotoxic edema, without shift. Continue blood pressure management. Would be careful not to drop systolic blood pressure much below 140 mmHg in the context of his acute left MCA stroke to avoid hypoperfusion injury. Of course, blood pressure reductions are necessary to potentially mitigate risk for hemorrhagic transformation. Current IV an tihypertensive parameters per sinter feeder. Patient currently on subcutaneous heparin for DVT prophylaxis. Plan on restarting his anticoagulant in light of his history of atrial fibrillation when medically appropriate. Would also restart his antiplatelet therapy and statin at that time as well. I would recommend completion of a repeat CT of the head at around 8 PM tonight to furthe r exclude interval hemorrhage and/or progression in associated cytotoxic edema. (2) Seizure: Observed seizure activity occurring 2 nights ago, currently stable with Keppra 500 mg IV every 12 hours. Continue with this medication at the current dosage. As described below, no evidence for persistent seizure activity on yesterday morning's EEG. Going forward, patient will likely need to remain on this anticonvulsant long-term as I believe his risk for seizure recurrence is now significantly elevated as he has 2 moderately sized cortically based infarct s involving the left cerebral hemisphere. When this patient clinically stabilizes would switch from IV Keppra to p.o. formulations when medically appropriate and if appropriately cleared for swallowing. Subjective Follow-up for stroke and seizure The patient is a 69-year-old male who is 2 days status post left carotid endarterectomy unfortunately complicated by a moderate sized left MCA territory infarct located just anterior to a chronic infarct on that side as well. He has a persistent severe right hemiplegia and associated mixed aphasia, expressive greater than receptive. He did have some witnessed seizure activity as well 2 nights ago and was started on Keppra. He has completed the follow-up CT of the head as requested. The study reveals an evolving acute infarct in the left parietal lobe measuring about 5 cm in size, just anterior to the previous left MCA infarct. There is some associated cytotoxic edema, no shift. No hemor rhage. I reviewed the images as well as the radiologist's interpretation of this test. His EEG completed yesterday revealed some left parietal slowing, superimposed on a generalized moderate encephalopathy. No epileptiform abnormalities were observed, however. He has not had any further seizure activity since the witnessed episode 2 nights ago. He remains lethargic, aphasic, and with a significant right hemiplegia. He is mildly agitated as well with a tendency to roll onto his side and perhaps attempt to get up out of bed on his own. Nursing staff has been monitoring this issue. Review of Systems Review of Systems: Unobtainable due to cognitive status Physical Exam Physical Exam: The patient is lethargic. He continues to display a significant mixed aphasia, expressive greater than receptive. He is unable to name objects or repeat phrases. He also displays moderately dysarthric speech. He is able to follow simple commands, but does so with moderate difficulty and repeated cueing. Attention wanes easily. Visual baugh grossly full to threat. Pupils equal round reactive to light and accommodation. Eye movements grossly full. No gaze preference or deviation. No nystagmus, ophthalmoplegia, or ptosis. Patient exhibits a moderate right lower facial droop. Tongue and palate are midline. Patient continues to exhibit a significant right hemiplegia affecting the right face arm and leg. Right upper extremity tone is flaccid. Strength of the right arm 0 out of 5. No movement of the right hand. No ability to grasp. Patient able to lift the left arm and hand out of the bed with repeated requests and cueing. No obvious pronator drift of this limb. Strength for the left leg also normal. No tremors or dyskinetic movements observed. No facial twitching or obvious clinical seizure activity observed at this time. Results & Data Vital Signs (Past 12 Hours) Vital Signs Temp Pulse Pulse Resp BP BP Pulse Ox 08/19/19 06:00 60 15 199/74 H 100 08/19/19 05:59 65 199/74 H 08/19/19 05:00 65 20 155/51 H 94 08/19/19 04:00 36.8 C 70 18 162/59 H 95 08/19/19 03:00 63 20 161/54 H 96 08/19/19 02:00 67 14 185/61 H 95 08/19/19 01:00 61 17 167/60 H 94 08/19/19 00:00 36.8 C 66 12 178/79 H 97 08/18/19 23:11 63 164/53 H 08/18/19 23:00 61 18 164/53 H 96 08/18/19 22:00 65 14 132/59 L 95 08/18/19 21:30 72 21 93 Laboratory Results WBC 10.86, hemoglobin 10.0, hematocrit 31.9, platelet count 188, sodium 136, potassium 4.1, BUN 23, creatinine 4.35, glucose 176, calcium 9.2, magnesium 2.1 Diagnostic Findings Follow-up CT of the head completed yesterday reviewed and is as described above. I reviewed the images as well as the radiologist notation of this test. There is an acute evolving infarct within the left MCA territory measuring about 5 cm, just anterior to the previous/chronic posterior left MCA infarct. There is some associated cytotoxic edema, no shift. No acute hemorrhage. Yesterday morning's EEG had revealed a generalized moderate diffuse/nonspecific encephalopathy and superimposed left posterior hemispheric slowing. No epileptiform abnormalities. PG Care Time/CCT Total # of Minutes Spent Total Time Spent with Patient: Total time spent is greater than 50% in coordination of care (as documented) at patient's floor/unit and/or counseling patient: Coding Level of Care Code 97788 Subseq Hosp Care Lvl 3 Diagnoses Cerebrovascular accident (CVA) I63.9 Seizure R56.9
[2019-08-19] MEDS ORDERED: SODIUM CHLORIDE 0.9% 1000ML 1,000 ML IV PRN (09:40)
--- NOTE | 2019-08-19 10:01 | Nephrology Progress Note ---
Date of Service August 19, 2019 Assessment & Plan (1) ESRD (end stage renal disease): -- HD today for additional UF today -- Orders for treatment today entered into the EMR and discussed with HD nurse, 3 hrs + UF goal 1 L -- Close BP monitoring due to acute CVA -- R femoral HD catheter for access -- Medications appropriate for kidney function -- BP and volume status currently appropriate -- Chronic stable anemia, maintained on Micera as outpatient. Epogen held again today -- s/p CEA POD#2, additional heparin held with treatment -- CT demonstrated acute left parietal lobe measuring infarct -- Noted seizure activity following procedure, defer Keppra to pharmacy Subjective No acute events overnight. Tolerated HD reasonably well. UF 1.5 L. BP accelerated. Answering 'yes/no'. Denies pain. No fevers or chills. Review of Systems Review of Systems: All systems reviewed & are unremarkable except as noted in HPI & below Physical Exam Constitutional: well developed and + physical limitations Eyes: + anicteric sclerae; no corneal abnormality ENMT: Mouth: no oral mucosal abnormality and oral mucous membranes not dry Neck: normal visual inspection, trachea midline and + thick neck Respiratory: normal respiratory effort Auscultation: lungs clear to auscultation bilaterally and + rales Cardiovascular: Rate/Rhythm: regular rate Heart Sounds: normal S1 and normal S2 Extremities: no edema Gastrointestinal (Abdomen): Percussion/Palpation: abdomen soft; abdomen nontender Musculoskeletal: Extremities: no cyanosis and no clubbing Skin: normal turgor; no lesions Neurologic: Motor/Sensory: no tremor and no asterixis Psychiatric: Orientation: alert and cooperative Results & Data Vital Signs (Past 12 Hours) Vital Signs Temp Pulse Pulse Resp BP BP Pulse Ox 08/19/19 06:00 60 15 199/74 H 100 08/19/19 05:59 65 199/74 H 08/19/19 05:00 65 20 155/51 H 94 08/19/19 04:00 36.8 C 70 18 162/59 H 95 08/19/19 03:00 63 20 161/54 H 96 08/19/19 02:00 67 14 185/61 H 95 08/19/19 01:00 61 17 167/60 H 94 08/19/19 00:00 36.8 C 66 12 178/79 H 97 08/18/19 23:11 63 164/53 H 08/18/19 23:00 61 18 164/53 H 96 08/18/19 22:00 65 14 132/59 L 95 Laboratory Results Laboratory Results - last 24 hr 08/18/19 08/18/19 08/18/19 11:54 17:38 20:54 WBC RBC Hgb Hct MCV MCH MCHC RDW Std Deviation RDW Coeff of Dacia Plt Count MPV Immature Gran % (Auto) Neut % (Auto) Lymph % (Auto) [place] % (Auto) Eos % (Auto) Baso % (Auto) Immature Gran # (Auto) Neut # (Auto) Lymph # (Auto) [place] # (Auto) Eos # (Auto) Baso # (Auto) Absolute Nucleated RBC Nucleated RBC % (auto) PT INR Sodium Potassium Chloride Carbon Dioxide Anion Gap BUN Creatinine Est Cr Clr Drug Dosing Est GFR ( Amer) Est GFR (Non-Af Amer) BUN/Creatinine Ratio Glucose POC Glucose 162 H 162 H 144 H Calcium Magnesium 08/18/19 08/19/19 08/19/19 23:09 04:08 04:08 WBC 10.86 H RBC 3.12 L Hgb 10.0 L Hct 31.9 L MCV 102.2 H MCH 32.1 MCHC 31.3 L RDW Std Deviation 61.9 H RDW Coeff of Dacia 16.5 H Plt Count 188 MPV 11.1 H Immature Gran % (Auto) 0.3 Neut % (Auto) 92.5 Lymph % (Auto) 3.1 [place] % (Auto) 4.1 Eos % (Auto) 0.0 Baso % (Auto) 0.0 Immature Gran # (Auto) 0.03 H Neut # (Auto) 10.04 H Lymph # (Auto) 0.34 L [place] # (Auto) 0.45 Eos # (Auto) 0.00 Baso # (Auto) 0.00 Absolute Nucleated RBC 0.02 H Nucleated RBC % (auto) 0.2 PT 13.5 H INR 1.3 H Sodium Potassium Chloride Carbon Dioxide Anion Gap BUN Creatinine Est Cr Clr Drug Dosing Est GFR ( Amer) Est GFR (Non-Af Amer) BUN/Creatinine Ratio Glucose POC Glucose 140 H Calcium Magnesium 08/19/19 08/19/19 04:08 06:08 WBC RBC Hgb Hct MCV MCH MCHC RDW Std Deviation RDW Coeff of Dacia Plt Count MPV Immature Gran % (Auto) Neut % (Auto) Lymph % (Auto) [place] % (Auto) Eos % (Auto) Baso % (Auto) Immature Gran # (Auto) Neut # (Auto) Lymph # (Auto) [place] # (Auto) Eos # (Auto) Baso # (Auto) Absolute Nucleated RBC Nucleated RBC % (auto) PT INR Sodium 136 Potassium 4.1 D Chloride 103 Carbon Dioxide 24 Anion Gap 9.0 BUN 23 H Creatinine 4.35 H D Est Cr Clr Drug Dosing 19.7 Est GFR ( Amer) 14.8 Est GFR (Non-Af Amer) 12.7 BUN/Creatinine Ratio 5.2 L Glucose 176 H POC Glucose 185 H Calcium 9.2 Magnesium 2.1 PG Care Time/CCT Total # of Minutes Spent Total Time Spent with Patient: Total time spent is greater than 50% in coordination of care (as documented) at patient's floor/unit and/or counseling patient: Coding Level of Care Code 00759 Subseq Hosp Care Lvl 3 Diagnoses ESRD (end stage renal disease) N18.6
[2019-08-19 14:44] LABS: Hepatitis B Surface Ab Quant < 3.10 mIU/mL (>or=10mIU/mL Immune); Hepatitis B Surface Antibody Non-Immune
[2019-08-19 14:55] LABS: Hepatitis B Surface Antigen Neg (Neg)
[2019-08-19] MEDS: FAMOTIDINE 20 MG in SYRINGE 3 ML IV SCH (18:31)
[2019-08-19] MEDS ORDERED: LANTUS PER UNIT CHARGE SQ SCH (21:00)
[2019-08-20 04:36] LABS: Hematocrit (blood only) 30.1 % (42-52); Hemoglobin 9.5 g/dL (14.0-18.0); Immature Granulocytes # (auto) 0.04 K/uL (0.00-0.02); Immature Granulocytes % (auto) 0.3 %; Lymphocytes # (auto) 0.56 K/uL (1.2-3.4); Lymphocytes % (auto) 4.8 %; Mean Corpuscular Hemoglobin 31.8 pg (25-34); Mean Corpuscular Hgb Conc 31.6 g/dL (32-36); Mean Corpuscular Volume 100.7 fL (80-100); Mean Platelet Volume 10.8 fL (7.4-10.4); Monocytes # (auto) 1.07 K/uL (0.11-0.59); Monocytes % (auto) 9.2 %; Neutrophils # (auto) 10.01 K/uL (1.4-6.5); Neutrophils % (auto) 85.7 %; Nucleated RBC # (auto) 0.03 K/uL (0-0); Nucleated RBC % (auto) 0.3 %; Platelet Count 178 K/uL (130-400); RDW Coefficient of Variation 15.9 % (11.5-14.5); RDW Standard Deviation 59.4 fL (36.4-46.3); Red Blood Count 2.99 M/uL (4.7-6.1); White Blood Count 11.68 K/uL (4.8-10.8)
[2019-08-20 04:51] LABS: INR 1.7 (0.9-1.1); Prothrombin Time 17.9 Seconds (9.0-12.0)
[2019-08-20 04:55] LABS: BUN Creatinine Ratio 6.8 (10-20); Calcium 9.2 mg/dl (8.5-10.1); Creatinine Clr Calc Pharmacy 20.2 ml/min; Est GFR (African American) 15.6; Est GFR (Non-African American) 13.5; Magnesium 2.1 mg/dl (1.8-2.4); Phosphorus 3.6 mg/dl (2.5-4.9)
[2019-08-20] MEDS: METOPROLOL TARTRATE 1 MG/ML VIAL IV SCH ×5 (05:44→23:49)
[2019-08-20] MEDS: HEPARIN SOD 5,000 UNIT/0.5 ML VIAL SQ SCH (05:44)
[2019-08-20] MEDS: INSULIN ASPART 100 UNITS/ML 3 ML PEN SC SCH ×2 (05:50→12:38)
--- NOTE | 2019-08-20 06:47 | Critical Care Progress Note ---
Date of Service August 20, 2019 Assessment & Plan (1) Stenosis of left internal carotid artery: Rick Carlson is a 69 yo M with PMH significant for ESRD on HD, CHF, HTN, CAD, pacemaker, COPD, GOUT, DMII, a fib, and TIA in past; admitted for L CEA, following the procedure and being extubated, had R sided weakness and inability to move those limbs. Brielle called, and came to visit; after further conversations they have elected to go with comfort measures only given the severity of his condition. Neuro: - [facility] ICU: unable to assess due to cognitive status, only responds in grunts and nods or shakes of the head - after extubation in post-operative side, had R sided hemiplegia - intra-operative Fluoro did not visualize occlusions in L cerebral vessels - 08/16 CT head did not demonstrate an acute intracranial abnormality - CTA Head did not demonstrate significant stenosis, occlusion, or aneurysm within the [place] of [place] - CTA Neck demonstrated left carotid system patent without significant stenosis - goal Systolic BP<140 - 08/17 CT Head: demonstrated an acute infarct of the left parietal lobe measuring up to 5.0 cm - EEG per report demonstrated high amplitude focal slowing overlying the left posterior head regions suggesting an underlying structural or functional abnormality. There is no evidence of seizure activity at this time - 08/19 CT Head: demonstrated expected evolution of the acute left frontoparietal infarct. - Patient and have elected to go comfort care measures only - Palliative consult Cardiac/Vascular: - patient with pacemaker in place for control of A. fib - prior to procedure was consistently V-paced - patient is currently still V-paced on telemetry - discontinued regimen in favor of less invasive 15 mg Lopressor Q6h Respiratory: - patient has COPD, supposed to be on BiPAP nightly at home, and O2 support throughout the day, but he does not utilize either - maintaining sats >90% with 2L NC - comfort measures only GI/Nutrition: - regular diet for comfort measures Renal/Lytes: - patient has ESRD, gets HD MWF - Nephrology consulted - will stop dialysis treatments at this time : - patient has urostomy over abdomen ENDO: - T2DM: holding home regimen HEME: - H&H stable as compared to previous hospitalizations ID: - no concerns for infectious disease at this point Lines/IV Access: - peripheral IVs - R femoral permacath Admission and Anticipated Discharge Date Admission Date: August 17, 2019 Supervising Physician Co-Signing Physician Notes Dr. Oates was resident physician during care of patient. I separately evaluated patient for rodriguez portions of the history and the exam. I was present during the critical portion of medical decision making, and I discussed the case with the resident. I generally agree with the findings and plan. I met with the patient's . Patient would not want to continue dialysis and prefers to focus on comfort. Family all in agreement that in his current state he would not desire continued ongoing life-sustaining treatment. I discussed the case with Dr. Jennings he also is in agreement. Patient is critically ill requiring IV antihypertensives; however, we are now transitioning to pure comfort measures and will discontinue these medications and the patient is stable for downgrade out of the ICU. Subjective Extensive discussions today, regarding the continued care of this patient. Patient has declined hemodialysis this morning, and desires no further testing. Brielle called, and came to visit; after further conversations they have elected to go with comfort measures only given the severity of his condition. Review of Systems Review of Systems: Unobtainable due to cognitive status Physical Exam Constitutional: WD/WN, vitals as above + morbidly obese Eyes: PERRL and normal accommodation ENMT: external ear and nose normal, oropharynx normal Respiratory: normal respiratory effort Auscultation: no crackles, no rales, no rhonchi and no wheezes Cardiovascular: Rate/Rhythm: regular rate and regular rhythm Heart Sounds: normal S1 and normal S2; no gallop, no murmur and no cardiac rub Vessels: no JVD Extremities: no pedal edema Gastrointestinal (Abdomen): normal bowel sounds, soft, nontender, no hepatosplenomegaly Musculoskeletal: Head/Neck/Chest: normocephalic and head atraumatic Extremities: + abnormal strength Skin: no rashes, warm and dry Neurologic: awake and + confused Speech / Cognition: + expressive aphasia (continues to attempt communication but only grunts and moans) Motor/Sensory: + abnormal movement (2/5 of RUE & RLE) Cranial Nerves: EOM intact bilaterally, tongue midline and able to rotate head bilaterally Psychiatric: Orientation: alert; + not oriented to person, + not oriented to place and + not oriented to time Lymphatic: no cervical or axillary lymphadenopathy Results & Data ([facility]) Vital Signs (Past 12 Hours) Vital Signs Temp Pulse Resp BP Pulse Ox 08/20/19 05:00 68 14 135/64 96 08/20/19 04:00 37.1 C 70 21 155/74 H 97 08/20/19 03:00 67 19 155/77 H 98 08/20/19 02:35 62 14 89 L 08/20/19 02:00 80 26 H 165/55 H 96 08/20/19 01:00 62 12 159/65 H 98 08/20/19 00:05 36.7 C 77 20 152/56 H 98 08/19/19 23:34 64 13 153/62 H 100 08/19/19 23:31 63 174/45 H 08/19/19 23:04 61 12 140/44 L 96 08/19/19 23:00 62 18 83 L 08/19/19 22:49 61 15 126/79 81 L 08/19/19 22:43 65 18 161/43 H 92 08/19/19 22:30 68 16 97 08/19/19 22:28 72 17 162/70 H 97 08/19/19 22:20 80 16 86/61 L 98 08/19/19 22:04 68 16 146/48 H 94 08/19/19 22:00 69 15 99 08/19/19 21:49 68 19 149/76 H 95 08/19/19 21:34 66 15 152/66 H 98 08/19/19 21:30 66 16 100 08/19/19 21:21 68 12 154/47 H 96 08/19/19 21:04 64 17 150/70 H 96 08/19/19 21:00 67 20 95 08/19/19 20:50 66 12 162/63 H 97 08/19/19 20:35 71 22 147/87 H 95 08/19/19 20:30 60 16 95 08/19/19 20:23 62 14 151/55 H 94 08/19/19 20:04 64 15 173/78 H 98 08/19/19 20:00 37.4 C 60 25 H 94 08/19/19 19:49 60 19 159/48 H 96 08/19/19 19:43 70 24 188/43 H 96 08/19/19 19:30 72 13 99 08/19/19 19:19 74 18 138/90 98 08/19/19 19:15 80 12 173/88 H 98 08/19/19 19:03 65 15 185/54 H 93 08/19/19 19:00 67 10 L 94 Laboratory Results 08/20/19 08/20/19 08/20/19 Range/Units 05:47 04:07 04:07 WBC 11.68 H (4.8-10.8) K/uL RBC 2.99 L (4.7-6.1) M/uL Hgb 9.5 L (14.0-18.0) g/dL Hct 30.1 L (42-52) % MCV 100.7 H (80-100) fL MCH 31.8 (25-34) pg MCHC 31.6 L (32-36) g/dL RDW Std Deviation 59.4 H (36.4-46.3) fL RDW Coeff of Dacia 15.9 H (11.5-14.5) % Plt Count 178 (130-400) K/uL MPV 10.8 H (7.4-10.4) fL Immature Gran % (Auto) 0.3 % Neut % (Auto) 85.7 % Lymph % (Auto) 4.8 % [place] % (Auto) 9.2 % Eos % (Auto) 0.0 % Baso % (Auto) 0.0 % Immature Gran # (Auto) 0.04 H (0.00-0.02) K/uL Neut # (Auto) 10.01 H (1.4-6.5) K/uL Lymph # (Auto) 0.56 L (1.2-3.4) K/uL [place] # (Auto) 1.07 H (0.11-0.59) K/uL Eos # (Auto) 0.00 (0-0.5) K/uL Baso # (Auto) 0.00 (0-0.2) K/uL Absolute Nucleated RBC 0.03 H (0-0) K/uL Nucleated RBC % (auto) 0.3 % PT (9.0-12.0) Seconds INR (0.9-1.1) Sodium 140 (136-145) mmol/L Potassium 4.0 (3.5-5.1) mmol/L Chloride 107 (98-107) mmol/L Carbon Dioxide 23 (21-32) mmol/L Anion Gap 10.0 (3-11) BUN 28 H (7-18) mg/dl Creatinine 4.16 H (0.6-1.4) mg/dl Est Cr Clr Drug Dosing 20.2 ml/min Est GFR ( Amer) 15.6 Est GFR (Non-Af Amer) 13.5 BUN/Creatinine Ratio 6.8 L (10-20) Glucose 132 H (70-99) mg/dl POC Glucose 140 H (70-99) mg/dl Calcium 9.2 (8.5-10.1) mg/dl Phosphorus 3.6 (2.5-4.9) mg/dl Magnesium 2.1 (1.8-2.4) mg/dl Hep Bs Antigen (Neg) Hep Bs Antibody Hep Bs Antibody, Quant (>or=10mIU/mL Immune) mIU/mL 08/20/19 08/19/19 08/19/19 Range/Units 04:07 23:26 20:36 WBC (4.8-10.8) K/uL RBC (4.7-6.1) M/uL Hgb (14.0-18.0) g/dL Hct (42-52) % MCV (80-100) fL MCH (25-34) pg MCHC (32-36) g/dL RDW Std Deviation (36.4-46.3) fL RDW Coeff of Dacia (11.5-14.5) % Plt Count (130-400) K/uL MPV (7.4-10.4) fL Immature Gran % (Auto) % Neut % (Auto) % Lymph % (Auto) % [place] % (Auto) % Eos % (Auto) % Baso % (Auto) % Immature Gran # (Auto) (0.00-0.02) K/uL Neut # (Auto) (1.4-6.5) K/uL Lymph # (Auto) (1.2-3.4) K/uL [place] # (Auto) (0.11-0.59) K/uL Eos # (Auto) (0-0.5) K/uL Baso # (Auto) (0-0.2) K/uL Absolute Nucleated RBC (0-0) K/uL Nucleated RBC % (auto) % PT 17.9 H (9.0-12.0) Seconds INR 1.7 H (0.9-1.1) Sodium (136-145) mmol/L Potassium (3.5-5.1) mmol/L Chloride (98-107) mmol/L Carbon Dioxide (21-32) mmol/L Anion Gap (3-11) BUN (7-18) mg/dl Creatinine (0.6-1.4) mg/dl Est Cr Clr Drug Dosing ml/min Est GFR ( Amer) Est GFR (Non-Af Amer) BUN/Creatinine Ratio (10-20) Glucose (70-99) mg/dl POC Glucose 132 H 134 H (70-99) mg/dl Calcium (8.5-10.1) mg/dl Phosphorus (2.5-4.9) mg/dl Magnesium (1.8-2.4) mg/dl Hep Bs Antigen (Neg) Hep Bs Antibody Hep Bs Antibody, Quant (>or=10mIU/mL Immune) mIU/mL 08/19/19 08/19/19 08/19/19 Range/Units 18:15 13:44 13:32 WBC (4.8-10.8) K/uL RBC (4.7-6.1) M/uL Hgb (14.0-18.0) g/dL Hct (42-52) % MCV (80-100) fL MCH (25-34) pg MCHC (32-36) g/dL RDW Std Deviation (36.4-46.3) fL RDW Coeff of Dacia (11.5-14.5) % Plt Count (130-400) K/uL MPV (7.4-10.4) fL Immature Gran % (Auto) % Neut % (Auto) % Lymph % (Auto) % [place] % (Auto) % Eos % (Auto) % Baso % (Auto) % Immature Gran # (Auto) (0.00-0.02) K/uL Neut # (Auto) (1.4-6.5) K/uL Lymph # (Auto) (1.2-3.4) K/uL [place] # (Auto) (0.11-0.59) K/uL Eos # (Auto) (0-0.5) K/uL Baso # (Auto) (0-0.2) K/uL Absolute Nucleated RBC (0-0) K/uL Nucleated RBC % (auto) % PT (9.0-12.0) Seconds INR (0.9-1.1) Sodium (136-145) mmol/L Potassium (3.5-5.1) mmol/L Chloride (98-107) mmol/L Carbon Dioxide (21-32) mmol/L Anion Gap (3-11) BUN (7-18) mg/dl Creatinine (0.6-1.4) mg/dl Est Cr Clr Drug Dosing ml/min Est GFR ( Amer) Est GFR (Non-Af Amer) BUN/Creatinine Ratio (10-20) Glucose (70-99) mg/dl POC Glucose 183 H 181 H (70-99) mg/dl Calcium (8.5-10.1) mg/dl Phosphorus (2.5-4.9) mg/dl Magnesium (1.8-2.4) mg/dl Hep Bs Antigen Neg (Neg) Hep Bs Antibody Non-Immune Hep Bs Antibody, Quant < 3.10 L (>or=10mIU/mL Immune) mIU/mL 08/19/19 Range/Units 12:19 WBC (4.8-10.8) K/uL RBC (4.7-6.1) M/uL Hgb (14.0-18.0) g/dL Hct (42-52) % MCV (80-100) fL MCH (25-34) pg MCHC (32-36) g/dL RDW Std Deviation (36.4-46.3) fL RDW Coeff of Dacia (11.5-14.5) % Plt Count (130-400) K/uL MPV (7.4-10.4) fL Immature Gran % (Auto) % Neut % (Auto) % Lymph % (Auto) % [place] % (Auto) % Eos % (Auto) % Baso % (Auto) % Immature Gran # (Auto) (0.00-0.02) K/uL Neut # (Auto) (1.4-6.5) K/uL Lymph # (Auto) (1.2-3.4) K/uL [place] # (Auto) (0.11-0.59) K/uL Eos # (Auto) (0-0.5) K/uL Baso # (Auto) (0-0.2) K/uL Absolute Nucleated RBC (0-0) K/uL Nucleated RBC % (auto) % PT (9.0-12.0) Seconds INR (0.9-1.1) Sodium (136-145) mmol/L Potassium (3.5-5.1) mmol/L Chloride (98-107) mmol/L Carbon Dioxide (21-32) mmol/L Anion Gap (3-11) BUN (7-18) mg/dl Creatinine (0.6-1.4) mg/dl Est Cr Clr Drug Dosing ml/min Est GFR ( Amer) Est GFR (Non-Af Amer) BUN/Creatinine Ratio (10-20) Glucose (70-99) mg/dl POC Glucose 137 H (70-99) mg/dl Calcium (8.5-10.1) mg/dl Phosphorus (2.5-4.9) mg/dl Magnesium (1.8-2.4) mg/dl Hep Bs Antigen (Neg) Hep Bs Antibody Hep Bs Antibody, Quant (>or=10mIU/mL Immune) mIU/mL Medications Administered Current Inpatient Medications Albuterol (Ventolin Hfa) 2 puffs INH Q4H PRN PRN Reason: sob Stop: 09/16/19 14:16 Allopurinol (Zyloprim) 300 mg PO [facility] Stop: 09/17/19 08:59 Last Admin: 08/18/19 09:15 Dose: Not Given Documented by: Ascorbic Acid (Vitamin C) 1,000 mg PO [facility] Stop: 09/17/19 08:59 Last Admin: 08/18/19 09:14 Dose: Not Given Documented by: Aspirin (Ecotrin Ectab) 81 mg PO [facility] Stop: 09/17/19 08:59 Last Admin: 08/18/19 09:13 Dose: Not Given Documented by: Atorvastatin Calcium (Lipitor) 80 mg PO [facility] Stop: 09/16/19 20:59 Last Admin: 08/17/19 20:14 Dose: Not Given Documented by: Clonazepam (Klonopin) 0.5 mg PO DAILY PRN PRN Reason: Anxiety Stop: 09/16/19 14:16 Cyanocobalamin (Vitamin B-12) 1,000 mcg PO [facility] Stop: 09/17/19 08:59 Last Admin: 08/18/19 09:14 Dose: Not Given Documented by: Dextrose (Dextrose 50%) 25 - 50 ml IV UD PRN; Protocol PRN Reason: Hypoglycemia Protocol Stop: 09/17/19 05:28 Fluticasone Propionate (Flonase) 1 sprays NA DAILY PRN PRN Reason: Congestion Stop: 09/16/19 14:16 Fluticasone/Vilanterol (Breo Ellipta 100/25 Mcg Inh) 1 puffs INH DAILY [facility] Stop: 09/17/19 08:59 Last Admin: 08/19/19 08:18 Dose: 1 puffs Documented by: Glipizide (Glucotrol) 5 mg PO DAILYBB [facility] Stop: 09/17/19 06:29 Last Admin: 08/18/19 05:32 Dose: Not Given Documented by: Glucagon (Glucagen) 1 mg SQ UD PRN; Protocol PRN Reason: Hypoglycemia Protocol Stop: 09/17/19 05:28 Glucose (Dex4 Glucose) 4 - 8 tabs PO UD PRN; Protocol PRN Reason: Hypoglycemia Protocol Stop: 09/17/19 05:28 Glucose (Glucose 40%) 15 - 30 gm PO UD PRN; Protocol PRN Reason: Hypoglycemia Protocol Stop: 09/17/19 05:28 Heparin Sodium (Porcine) (Heparin Sodium (Porcine)) 5,000 units SQ Q8 [facility] Stop: 09/17/19 13:59 Last Admin: 08/20/19 05:44 Dose: 5,000 units Documented by: Hydralazine HCl (Apresoline) 25 mg PO TID [facility] Stop: 09/16/19 14:59 Last Admin: 08/18/19 09:13 Dose: Not Given Documented by: Hydroxyzine HCl (Vistaril) 25 mg PO HS [facility] Stop: 09/16/19 20:59 Last Admin: 08/17/19 20:15 Dose: Not Given Documented by: Levetiracetam 500 mg/ Sodium (Chloride) 105 mls @ 420 mls/hr IV Q12H [facility] Stop: 09/17/19 08:59 Last Infusion: 08/19/19 22:23 Dose: Infused Documented by: Famotidine 20 mg/ Syringe 5 mls @ 2.5 mls/min IV Q24H [facility] Stop: 09/17/19 14:59 Last Admin: 08/19/19 18:31 Dose: 2.5 mls/min Documented by: Nicardipine HCl 25 mg/ Sodium (Chloride) 250 mls @ 50 mls/hr IV .Q5H [facility]; Protocol Stop: 09/18/19 07:29 Last Admin: 08/20/19 06:32 Dose: 5 mg/hr, 50 mls/hr Documented by: Insulin Aspart (Novolog Flexpen) 0 units SC Q6 [facility] Stop: 09/17/19 05:59 Last Admin: 08/20/19 05:50 Dose: Not Given Documented by: Ioversol (Optiray 320 125ml) 118 ml IV ONCE PRN PRN Reason: Interaction Checking Stop: 08/21/19 14:43 Last Admin: 08/17/19 14:45 Dose: 118 ml Documented by: Isosorbide Mononitrate (Imdur Extended Rel) 30 mg PO [facility] Stop: 09/17/19 08:59 Last Admin: 08/18/19 09:14 Dose: Not Given Documented by: Loratadine (Claritin) 10 mg PO [facility] Stop: 09/17/19 08:59 Last Admin: 08/18/19 09:13 Dose: Not Given Documented by: Metoprolol Tartrate (Lopressor) 50 mg PO BID [facility] Stop: 09/16/19 20:59 Last Admin: 08/18/19 09:14 Dose: Not Given Documented by: Metoprolol Tartrate (Lopressor) 10 mg IV Q6 [facility] Stop: 09/18/19 11:59 Last Admin: 08/20/19 05:44 Dose: 10 mg Documented by: Miscellaneous (Carbohydrates For Hypoglycemia) 15 - 30 gm PO UD PRN PRN Reason: Hypoglycemia Protocol Stop: 09/17/19 05:28 Miscellaneous Information (Consult Glycemic Management Pharmacy) 1 ea N/A UD PRN; Protocol PRN Reason: Consult Stop: 09/17/19 05:39 Multivitamins/Minerals (Multivitamin W/ Minerals Tab) 1 tab PO [facility] Stop: 09/17/19 08:59 Last Admin: 08/18/19 09:14 Dose: Not Given Documented by: Nitroglycerin (Nitrostat) 0.3 mg SL UD PRN PRN Reason: Chest Pain Stop: 09/16/19 14:16 Ondansetron HCl (Zofran) 4 mg IV Q6H PRN PRN Reason: Nausea Stop: 09/17/19 05:49 Oxycodone/Acetaminophen (Percocet 5mg/325mg) 1 - 2 tab PO Q4H PRN PRN Reason: Moderate Pain Stop: 08/31/19 14:16 Pantoprazole Sodium (Protonix) 40 mg PO QAM [facility] Stop: 09/17/19 08:59 Last Admin: 08/18/19 09:14 Dose: Not Given Documented by: Polyethylene Glycol (Miralax Powder Packet) 17 gm PO BID PRN PRN Reason: Constipation Stop: 09/16/19 14:16 Sennosides (Senokot) 17.2 mg PO DAILY PRN PRN Reason: Constipation Stop: 09/16/19 14:16 Sevelamer HCl (Renagel) [facility] Stop: 09/16/19 16:59 Last Admin: 08/18/19 08:39 Dose: Not Given Documented by: Thiamine HCl (Vitamin B-1) 100 mg PO QAM [facility] Stop: 09/17/19 08:59 Last Admin: 08/18/19 09:14 Dose: Not Given Documented by: Trazodone HCl (Desyrel) 150 mg PO [facility] Stop: 09/16/19 20:59 Last Admin: 08/17/19 20:14 Dose: Not Given Documented by: Umeclidinium [place] (Incruse Ellipta) [facility] [place] Stop: 09/17/19 08:59 Last Admin: 08/19/19 08:18 Dose: 1 puffs Documented by: Venlafaxine HCl (Effexor Extended Release) 75 [facility] [place] [facility] Stop: 09/17/19 08:59 Last Admin: 08/18/19 09:13 Dose: Not Given Documented by: Vitamin D (Vitamin D3) 2,000 units PO QAM [facility] Stop: 09/17/19 08:59 Last Admin: 08/18/19 09:15 Dose: Not Given Documented by: Warfarin Sodium (Coumadin) 5 mg PO DAILY@1600 [facility] Stop: 09/17/19 15:59 Critical Care Time Critical Care Time: Yes Total Critical Care Time: 40 I have personally spent 40 minutes of critical care time in the direct management of this patient. This is a life/limb threatening event. This includes time spent evaluating patient, direct bedside care, chart review, placing orders, interpretation of diagnostic studies, discussion with consultants, patient, and/or family members regarding treatment decisions, as well as other required patient management activities. This time is exclusive of all separately billable procedures, and teaching time and separate from and in addition to any other critical care service time. Resident Activity Tracking Resident Involvement: Resident Care Provided Care Provided: Adult [facility] Medicine
[2019-08-20] MEDS ORDERED: SODIUM CHLORIDE 0.9% 1000ML 1,000 ML IV PRN (08:15)
[2019-08-20] MEDS: UMECLIDINIUM BROMIDE 62.5MCG/BLISTER 7 PUFFS/INHALER INH SCH (09:04)
[2019-08-20] MEDS: FLUTICASONE/VILANTEROL 100/25MCG 14 PUFFS/INHALER INH SCH (09:04)
[2019-08-20] MEDS: levETIRAcetam 500 MG in 0.9 % SODIUM CHLORIDE 100 ML IV SCH ×2 (09:05→20:25)
--- NOTE | 2019-08-20 09:24 | Nephrology Progress Note ---
Date of Service August 20, 2019 Assessment & Plan (1) ESRD (end stage renal disease): -- I would suggest HD today to continue with MWF schedule and plan for daily dialysis to void large fluctuations in fluid and solute between treatments -- Rick has refused at this time -- Palliative care consultation to assist with goals of care has been requested -- I reviewed the patient's current condition with his -- Close BP monitoring -- R femoral HD catheter for access -- Medications appropriate for kidney function -- BP and volume status currently appropriate -- Chronic stable anemia, maintained on Micera as outpatient. Epogen held again today -- s/p CEA POD#3, additional heparin held with treatment -- CT demonstrated acute left parietal lobe measuring infarct -- Noted seizure activity following procedure, defer Keppra to pharmacy Subjective Rick was agitated this morning. Tolerated HD well yesterday. Net UF 0.5 L. No fevers or chills. Unfortunately neurologic defects including aphasia persist. Good 'yes/no' response and some garbled speech. Rick was refusing dialysis this morning. I called and discussed this with his today. She feels strongly that he will change his mind once he is more calm. Review of Systems Review of Systems: Unobtainable due to cognitive status Physical Exam Constitutional: well developed and + physical limitations Eyes: + anicteric sclerae; no corneal abnormality ENMT: Mouth: no oral mucosal abnormality and oral mucous membranes not dry Neck: normal visual inspection, trachea midline and + thick neck Respiratory: normal respiratory effort Auscultation: lungs clear to auscultation bilaterally and + rales Cardiovascular: Rate/Rhythm: regular rate Heart Sounds: normal S1 and normal S2 Extremities: no edema Gastrointestinal (Abdomen): Percussion/Palpation: abdomen soft; abdomen nontender Musculoskeletal: Extremities: no cyanosis and no clubbing R femoral TDC Skin: normal turgor; no lesions Neurologic: Motor/Sensory: no tremor and no asterixis Psychiatric: Orientation: alert and cooperative Results & Data Vital Signs (Past 12 Hours) Vital Signs Temp Pulse Resp BP Pulse Ox 08/20/19 08:35 63 23 140/49 L 99 08/20/19 08:21 74 14 130/48 L 98 08/20/19 08:06 72 14 161/53 H 97 08/20/19 07:50 68 12 155/85 H 96 08/20/19 07:35 71 22 180/64 H 95 08/20/19 07:20 66 14 192/71 H 96 08/20/19 07:04 69 20 180/62 H 95 08/20/19 07:00 70 15 96 08/20/19 06:50 73 19 172/79 H 94 08/20/19 06:00 67 29 H 170/77 H 94 08/20/19 05:00 68 14 135/64 96 08/20/19 04:00 37.1 C 70 21 155/74 H 97 08/20/19 03:00 67 19 155/77 H 98 08/20/19 02:35 62 14 89 L 08/20/19 02:00 80 26 H 165/55 H 96 08/20/19 01:00 62 12 159/65 H 98 08/20/19 00:05 36.7 C 77 20 152/56 H 98 08/19/19 23:34 64 13 153/62 H 100 08/19/19 23:31 63 174/45 H 08/19/19 23:04 61 12 140/44 L 96 08/19/19 23:00 62 18 83 L 08/19/19 22:49 61 15 126/79 81 L 08/19/19 22:43 65 18 161/43 H 92 08/19/19 22:30 68 16 97 08/19/19 22:28 72 17 162/70 H 97 08/19/19 22:20 80 16 86/61 L 98 08/19/19 22:04 68 16 146/48 H 94 08/19/19 22:00 69 15 99 08/19/19 21:49 68 19 149/76 H 95 08/19/19 21:34 66 15 152/66 H 98 08/19/19 21:30 66 16 100 08/19/19 21:21 68 12 154/47 H 96 Laboratory Results Laboratory Results - last 24 hr 08/19/19 08/19/19 08/19/19 12:19 13:32 13:44 WBC RBC Hgb Hct MCV MCH MCHC RDW Std Deviation RDW Coeff of [place]acia Plt Count MPV Immature Gran % (Auto) Neut % (Auto) Lymph % (Auto) [place] % (Auto) Eos % (Auto) Baso % (Auto) Immature Gran # (Auto) Neut # (Auto) Lymph # (Auto) [place] # (Auto) Eos # (Auto) Baso # (Auto) Absolute Nucleated RBC Nucleated RBC % (auto) PT INR Sodium Potassium Chloride Carbon Dioxide Anion Gap BUN Creatinine Est Cr Clr Drug Dosing Est GFR ( Amer) Est GFR (Non-Af Amer) BUN/Creatinine Ratio Glucose POC Glucose 137 H 181 H Calcium Phosphorus Magnesium Hep Bs Antigen Neg Hep Bs Antibody Non-Immune Hep Bs Antibody, Quant < 3.10 L 08/19/19 08/19/19 08/19/19 18:15 20:36 23:26 WBC RBC Hgb Hct MCV MCH MCHC RDW Std Deviation RDW Coeff of [place] Plt Count MPV Immature Gran % (Auto) Neut % (Auto) Lymph % (Auto) [place] % (Auto) Eos % (Auto) Baso % (Auto) Immature Gran # (Auto) Neut # (Auto) Lymph # (Auto) [place] # (Auto) Eos # (Auto) Baso # (Auto) Absolute Nucleated RBC Nucleated RBC % (auto) PT INR Sodium Potassium Chloride Carbon Dioxide Anion Gap BUN Creatinine Est Cr Clr Drug Dosing Est GFR ( Amer) Est GFR (Non-Af Amer) BUN/Creatinine Ratio Glucose POC Glucose 183 H 134 H 132 H Calcium Phosphorus Magnesium Hep Bs Antigen Hep Bs Antibody Hep Bs Antibody, Quant 08/20/19 08/20/19 08/20/19 04:07 04:07 04:07 WBC 11.68 H RBC 2.99 L Hgb 9.5 L Hct 30.1 L MCV 100.7 H MCH 31.8 MCHC 31.6 L RDW Std Deviation 59.4 H RDW Coeff of [place]acia 15.9 H Plt Count 178 MPV 10.8 H Immature Gran % (Auto) 0.3 Neut % (Auto) 85.7 Lymph % (Auto) 4.8 [place] % (Auto) 9.2 Eos % (Auto) 0.0 Baso % (Auto) 0.0 Immature Gran # (Auto) 0.04 H Neut # (Auto) 10.01 H Lymph # (Auto) 0.56 L [place] # (Auto) 1.07 H Eos # (Auto) 0.00 Baso # (Auto) 0.00 Absolute Nucleated RBC 0.03 H Nucleated RBC % (auto) 0.3 PT 17.9 H INR 1.7 H Sodium 140 Potassium 4.0 Chloride 107 Carbon Dioxide 23 Anion Gap 10.0 BUN 28 H Creatinine 4.16 H Est Cr Clr Drug Dosing 20.2 Est GFR ( Amer) 15.6 Est GFR (Non-Af Amer) 13.5 BUN/Creatinine Ratio 6.8 L Glucose 132 H POC Glucose Calcium 9.2 Phosphorus 3.6 Magnesium 2.1 Hep Bs Antigen Hep Bs Antibody Hep Bs Antibody, Quant 08/20/19 05:47 WBC RBC Hgb Hct MCV MCH MCHC RDW Std Deviation RDW Coeff of [place] Plt Count MPV Immature Gran % (Auto) Neut % (Auto) Lymph % (Auto) [place] % (Auto) Eos % (Auto) Baso % (Auto) Immature Gran # (Auto) Neut # (Auto) Lymph # (Auto) [place] # (Auto) Eos # (Auto) Baso # (Auto) Absolute Nucleated RBC Nucleated RBC % (auto) PT INR Sodium Potassium Chloride Carbon Dioxide Anion Gap BUN Creatinine Est Cr Clr Drug Dosing Est GFR ( Amer) Est GFR (Non-Af Amer) BUN/Creatinine Ratio Glucose POC Glucose 140 H Calcium Phosphorus Magnesium Hep Bs Antigen Hep Bs Antibody Hep Bs Antibody, Quant PG Care Time/CCT Total # of Minutes Spent Total Time Spent with Patient: Total time spent is greater than 50% in coordination of care (as documented) at patient's floor/unit and/or counseling patient: Coding Level of Care Code 22553 Subseq Hosp Care Lvl 3 Diagnoses ESRD (end stage renal disease) N18.6
--- NOTE | 2019-08-20 09:47 | CT Scan Report ---
CT OF THE HEAD WITHOUT CONTRAST CLINICAL HISTORY: R hemiplegia COMPARISON STUDY: Head CT August 18, 2019. CT DOSE: 921.40 mGy.cm TECHNIQUE: Helical axial images of the head were obtained without IV contrast. Automated exposure con trol was utilized for the study. A dose lowering technique was utilized adhering to the principles o f ALARA. FINDINGS: Note is again made of a 5.5 cm hypodense focus with loss of kwon differentiation within the left frontoparietal region. This represents expected evolution of the acute infarct shown on CT of 2019. There is no mass effect. No hemorrhage is present. Adjacent encephalomalacia represent s an old infarct. The ventricular system is stable. No midline shift is present. The basilar cisterns are patent. There are no extra axial collection. White matter hypodensity suggests small vessel dise ase. IMPRESSION: Expected evolution of the acute left frontoparietal infarct. No hemorrhage. No significa nt mass effect. ACT 112: Negative or not required by law. Electronically signed by: Moisés Givens M.D. 08/20/2019 9:46 AM
--- NOTE | 2019-08-20 11:59 | Billing Data ---
Date of Service August 19, 2019 Coding Level of Care Code Critical Care 1st - mins
[2019-08-20] MEDS ORDERED: LORazepam 0.5 MG TAB PO PRN (12:04)
[2019-08-20] MEDS ORDERED: ONDANSETRON INJ 2 MG/ML 2 ML VIAL IV PRN (12:04)
[2019-08-20] MEDS ORDERED: ACETAMINOPHEN 325 MG TAB PO PRN (12:04)
[2019-08-20] MEDS ORDERED: LORazepam 0.5 MG/1 ML VIAL IV PRN (12:04)
[2019-08-20] MEDS ORDERED: ATROPINE SULFATE 1% OP SOLN 2 ML BTL SL PRN (12:04)
[2019-08-20] MEDS ORDERED: ONDANSETRON 4 MG OD TAB SL PRN (12:04)
--- NOTE | 2019-08-20 12:04 | Billing Data ---
Date of Service August 20, 2019 Coding Level of Care Code Critical Care 1st - mins
--- NOTE | 2019-08-20 13:02 | Hospitalist Consultation ---
Date of Consultation August 20, 2019 Assessment & Plan (1) Comfort measures only status: - S/p Left carotid endarterectomy pt suffered acute left MCA infarct - measuring 5.5 cm large involving the cerebral cortex on repeat CT today 08/20/2019. Pt had a previous posterior MCA infarct in November 2018. - Palliative care is on board- and appreciate assistance with transition to home on hospice. - Stop all non-essential medications including IV medications - Will try to give some meds as able with carrier. - Pain control and medications for air hunger if needed - Scopolamine patch prn for oral secretions - Frequent turn and repo q2h as pt is no longer ambulatory s/p stroke as it affected R side. - Perform activity ad radhika/as tolerated - oral hygiene (2) Cerebrovascular accident (CVA): - Pt continues with mixed aphasia, expressive greater than receptive. (3) S/P carotid endarterectomy: - Left, Competed on 08/[address] Jennings (4) Seizure: - Hx of such, had been previously maintained on keppra - D/c all unnecessary medications (5) Chronic obstructive pulmonary disease: - may continue O2 via 2L as pt is comfortable wearing it. (6) Atrial fibrillation: - Stop all medications at this time (7) CHF (congestive heart failure): (8) Morbid obesity: - BMI of 39.5 (9) Anemia: - Stable (10) Diabetes mellitus, type 2: - Holding all medications (11) Hyperlipidemia: (12) GERD (gastroesophageal reflux disease): (13) Pacemaker: (14) Peripheral neuropathy: (15) Osteoarthritis: (16) Depression: CODE: DNR/DNI Dispo: Unfortunately poor prognosis, CM assisting with home on hospice care/planning/setup. Supervising Physician Co-Signing Physician Notes I supervised Whit Malik PA-C on this patient's care. I examined the patient today independently of her. I discussed the plan of care with her with the plan being as written in her note except for any following changes/exceptions: None. 69yo w/ hx of PAD who is a medical consult for palliative care after a stroke after his CEA. Presently aspirating after his stroke. Will try to get him home on hospice when able. History of Present Illness Attending Physician: Damien Jennings MD History of Present Illness This is a 69 yo M with PMHx of ESRD on HD, last session was on 08/18, CHF, HTN, CAD, pacemaker, COPD, afib, TIA, admitted for L CEA by Dr. Jennings on 08/17, following the procedure where he was intubated and extubated, had R sided weakness and difficulty moving those limbs, where he had been found to have an acute infarct of the left parietal lobe measuring up to 5.0 cm on 08/18. A this time, the patient and family have decided to proceed with comfort care and plan to transition home with hospice. The patient and his are at bedside. He denies any acute complaints currently but his speech is very garbled and has a wet cough intermittently. notes that he had a lot of difficulty with swallowing a few bites of pudding earlier for lunch, and that he seemed to choke on it, the the patient wanted to try a type of soup for lunch instead. His asked about medications and how they would be administered, so we discussed that at this time we are planning on stopping medications other than those that are for comfort. They were a bit tearful during our meeting, but are agreeable to these steps towards getting him home on hospice as per CM and palliative help. Allergies Allergy/AdvReac Type Severity Reaction Status Date / Time promethazine Allergy Intermediate UNCONTROLLED Verified 08/17/19 07:52 MUSCLE MOVEMENTS codeine AdvReac Intermediate "trips me Verified 08/17/19 07:52 out" Home Medications Home Medications Medication Instructions Recorded Confirmed Type allopurinol 300 mg PO QAM 02/05/18 08/17/19 History aspirin [Aspir-81] 81 mg PO QAM 02/05/18 08/17/19 History atorvastatin 80 mg PO HS 02/05/18 08/17/19 History loratadine [Claritin] 10 mg PO QAM 02/05/18 08/17/19 History melatonin 10 mg PO HS 02/05/18 08/17/19 History nitroglycerin 0.3 mg SUBLINGUAL DIRECTED PRN 02/05/18 08/17/19 History pantoprazole 40 mg PO QAM 02/05/18 08/17/19 History PreserVision AREDS-2 1 tab PO QAM 02/16/18 08/17/19 History cholecalciferol (vitamin D3) 2,000 unit PO QAM 02/16/18 08/17/19 History [Vitamin D3] cyanocobalamin (vitamin B-12) 1,000 mcg PO QAM 02/16/18 08/17/19 History [Vitamin B-12] hydralazine 25 mg PO TID 05/15/18 08/17/19 History thiamine HCl (vitamin B1) 100 mg 100 mg PO QAM tab 12/22/18 08/17/19 History tablet albuterol sulfate 2 puff INHALATION Q4H PRN 02/12/19 08/17/19 History budesonide-formoterol [Symbicort] 2 puff INHALATION BID 02/12/19 08/17/19 History fluticasone propionate 1 spray INTRANASAL DAILY PRN 02/12/19 08/17/19 History isosorbide mononitrate 30 mg PO QAM 02/12/19 08/17/19 History tiotropium bromide [Spiriva with 1 cap INHALATION QAM 02/13/19 08/17/19 History HandiHaler] glipizide 5 mg PO QAM 04/22/19 08/17/19 History clonazepam [Klonopin] 0.5 mg PO DAILY PRN 05/03/19 08/17/19 History ascorbic acid (vitamin C) 1,000 mg PO QAM 07/09/19 08/17/19 History sevelamer carbonate [Renvela] 800 mg PO TIDM 07/09/19 08/17/19 History venlafaxine 75 mg PO QAM 07/09/19 08/17/19 History warfarin 2.5 mg PO DAILY #0 tab 07/17/19 08/17/19 Rx hydroxyzine HCl 25 mg PO HS 08/04/19 08/17/19 History polyethylene glycol 3350 [Miralax] 17 g PO BID PRN 08/04/19 08/17/19 History sennosides [senna] 17.2 mg PO DAILY PRN 08/04/19 08/17/19 History trazodone 150 mg PO HS 08/04/19 08/17/19 History enoxaparin [Lovenox] 80 mg SUBCUT DAILY 08/17/19 08/17/19 History metoprolol tartrate 50 mg PO BID 08/17/19 08/17/19 History Patient History Medical History Anemia Anxiety Atrial fibrillation DX 2006 - NO HX CARDIOVERSION Cancer HX OF BLADDER HX OF PROSTATE Carotid stenosis, bilateral CHF (congestive heart failure) Chronic back pain Chronic obstructive pulmonary disease on 2 L O2 prn, 3L HS with BiPAP (not using BiPAP currently due to mask issues) Coronary arteriosclerosis S/P BMS to RCA November 2012 Depression Diabetes mellitus, type 2 NIDDM Dialysis patient MON, WED AND FRI (RIGHT SHOULDER AREA CURRENT ACCESS) ESRD (end stage renal disease) on dialysis GERD (gastroesophageal reflux disease) Gout continue allopurinol for prophylaxis Hiatal hernia History of kidney stones Hyperlipidemia Hypertension Morbid obesity Osteoarthritis Pacemaker 2011 IMPLANTED FOR A-FIB Peripheral neuropathy Post traumatic stress disorder Presence of urostomy Sleep apnea BIPAP Stroke NOVEMBER 2017- SLURRED SPEECH/LEFT FOOT WEAKNESS- CT SCAN SHOWED EVIDENCE OF AN OLD STROKE- ? EXACT DATE RESIDUAL LEFT SIDED WEAKNESS TIA (transient ischemic attack) 07/09/2019 during hospital admission- did not receive thrombolytic therapy- dysarthria and left arm weakness improved. Unable to obtain MRI due to pacemaker Surgical History History of biopsy of bladder (Resolved) History of cardiac cath (Resolved) STENT PLACED 2011 History of carotid endarterectomy right carotid 07/13/[address] Jennings History of cataract surgery (Resolved) RT/LEFT History of cholecystectomy (Resolved) History of colonoscopy History of laminectomy (Resolved) LUMBAR History of prostatectomy (Resolved) History of tooth extraction (Resolved) History of urologic surgery FOR KIDNEY STONE History of urostomy BLADDER REMOVED D/T CANCER STOMA REVISED History of vascular access device right femoral line in currently. Pericardial disease (Resolved) PERICARDIAL WINDOW/MICROSCOPIC ([facility]) 2013 S/P arteriovenous (AV) fistula creation right arm (05/2019) Family History Other Family history non-contributory Denies family history of Stroke Social History Preferred Language: Kazakh Communication Ability: Effective Communication Ability Comment: Need to re-assess with evolution of process Cigar Patcher Required: No Beliefs That Will Affect Care: None marital status: Current Living Situation: Spouse Current Living Situation Comment: pt and his live with their dtr current occupational status: retired Other Information That Helps Us Care for You: No Feels Safe at Home: Yes Safety Concerns: Feels Safe At This Time Smoking Status: Former smoker Tobacco Type: cigarettes ; Do You Dip or Chew Tobacco: No ; Smoking End Date: 06/2000 ; Second Hand Exposure: No ; Tobacco Cessation Education Requested by Patient: No Hx Alcohol Use: No Hx Substance Use: No Review of Systems Review of Systems: Deferred as on comfort measures only. Pt denies any pain or discomfort at this time. Physical Exam Physical Exam: General: awake, alert, no apparent distress, + tearful at times, + obese Head: Normocephalic, atraumatic ENT: + Keeps eyes closed during majority of exam, neck left side with javier, surrounding erythema s/p carotid endarterectomy Psych: Depressed mood and sad affect Neuro: AAO x 3, speech is garbled, +expressive aphasia Results & Data ([facility]) Vital Signs (Past 12 Hours) Vital Signs Temp Pulse Resp BP Pulse Ox 08/20/19 11:06 64 19 146/43 H 99 08/20/19 10:51 72 21 107/73 100 08/20/19 10:35 66 29 H 152/76 H 100 08/20/19 10:20 60 17 155/49 H 100 08/20/19 10:05 68 18 167/53 H 98 08/20/19 09:50 73 18 180/66 H 95 08/20/19 09:20 61 25 H 176/52 H 99 08/20/19 09:05 60 22 164/45 H 85 L 08/20/19 08:50 17 156/51 H 96 08/20/19 08:35 63 23 140/49 L 99 08/20/19 08:21 74 14 130/48 L 98 08/20/19 08:06 72 14 161/53 H 97 08/20/19 07:50 68 12 155/85 H 96 08/20/19 07:35 71 22 180/64 H 95 08/20/19 07:20 66 14 192/71 H 96 08/20/19 07:04 69 20 180/62 H 95 08/20/19 07:00 70 15 96 08/20/19 06:50 73 19 172/79 H 94 08/20/19 06:00 67 29 H 170/77 H 94 08/20/19 05:00 68 14 135/64 96 08/20/19 04:00 37.1 C 70 21 155/74 H 97 08/20/19 03:00 67 19 155/77 H 98 08/20/19 02:35 62 14 89 L 08/20/19 02:00 80 26 H 165/55 H 96 08/20/19 01:00 62 12 159/65 H 98 PG Care Time/CCT Total # of Minutes Spent Total Time Spent with Patient: Total time spent is greater than 50% in coordination of care (as documented) at patient's floor/unit and/or counseling patient: Coding Level of Care Code 66396 Inpt Consult Level 4 Diagnoses Comfort measures only status Z51.5 Cerebrovascular accident (CVA) I63.9 S/P carotid endarterectomy Z98.890 Seizure R56.9 Chronic obstructive pulmonary disease J44.9 Atrial fibrillation I48.91 CHF (congestive heart failure) I50.9 Heart failure chronicity: unspecified Heart failure type: unspecified Morbid obesity E66.01 Anemia D64.9 Anemia type: unspecified type Diabetes mellitus, type 2 E11.9 Hyperlipidemia E78.5 GERD (gastroesophageal reflux disease) K21.9 Pacemaker Z95.0 Peripheral neuropathy G62.9 Osteoarthritis M19.90 Depression F32.9 (1) CHF (congestive heart failure) Heart failure chronicity: unspecified Heart failure type: unspecified Qualified Code(s): I50.9 - Heart failure, unspecified (2) Anemia Anemia type: unspecified type Qualified Code(s): D64.9 - Anemia, unspecified
--- NOTE | 2019-08-20 13:39 | Neurology Progress Note ---
Date of Service August 20, 2019 Assessment & Plan (1) Cerebrovascular accident (CVA): Dense right hemiplegia and associated aphasia due to recent left MCA territory infarct. Prognosis for recovery poor. Discussed implications of this patient's infarct with patient spouse who was at bedside this morning. (2) Seizure: No further seizure activity. Stable with Keppra. (3) Comfort measures only status: Palliative care has been consulted, comfort measures in place. Patient has considerable medical comorbidities. Plan for home hospice. No further immediate neurological recommendations. Subjective Follow-up for stroke and seizure The patient continues to exhibit a significant right hemiplegia, expressive greater than receptive aphasia, and dysarthria. Patient did complete a follow- up CT of the head this morning. The study continues to reveal interval evolutionary change of the recent left MCA territory infarct, currently measuring 5.5 cm in diameter, without associated hemorrhagic transformation or significant mass-effect. This infarct is adjacent to a previous left MCA infarct. I reviewed the images as well as the radiologist interpretation of this test. The patient has not had any further episodes of seizure-like activity. Palliative care has been consulted for this patient with plans for comfort measure only status. Patient plans to stop hemodialysis sessions as well. Review of Systems Review of Systems: Unable due to severe mixed aphasia Physical Exam Physical Exam: The patient exhibits impaired attention and concentration. His speech is profoundly dysarthric. He is unable to name objects or repeat phrases. Language comprehension is perhaps modestly spared as he is able to follow simple commands with the left arm and leg within the context of his limited attention and concentration, however. He does exhibit some irritability of affect, probably pseudo-bulbar affect. He is able to track the examiner with gaze. Pupils equal round reactive to light. Eye movements normal. There is a right lower facial droop. Hearing grossly intact. Patient continues to exhibit a significant right hemiplegia affecting the face arm and leg with 0 out of 5 strength for the arm and leg. Tone is flaccid for the right arm. Strength for the left arm and leg appear to be normal. Patient able to lift these limbs out of the bed to command. He is mildly agitated. Results & Data Vital Signs (Past 12 Hours) Vital Signs Temp Pulse Resp BP Pulse Ox 08/20/19 12:58 60 153/52 H 08/20/19 11:06 64 19 146/43 H 99 08/20/19 10:51 72 21 107/73 100 03/20/20 10:35 66 29 H 152/76 H 100 08/20/19 10:20 60 17 155/49 H 100 08/20/19 10:05 68 18 167/53 H 98 08/20/19 09:50 73 18 180/66 H 95 08/20/19 09:20 61 25 H 176/52 H 99 08/20/19 09:05 60 22 164/45 H 85 L 08/20/19 08:50 17 156/51 H 96 08/20/19 08:35 63 23 140/49 L 99 08/20/19 08:21 74 14 130/48 L 98 08/20/19 08:06 72 14 161/53 H 97 08/20/19 07:50 68 12 155/85 H 96 08/20/19 07:35 71 22 180/64 H 95 08/20/19 07:20 66 14 192/71 H 96 08/20/19 07:04 69 20 180/62 H 95 08/20/19 07:00 70 15 96 08/20/19 06:50 73 19 172/79 H 94 08/20/19 06:00 67 29 H 170/77 H 94 08/20/19 05:00 68 14 135/64 96 08/20/19 04:00 37.1 C 70 21 155/74 H 97 08/20/19 03:00 67 19 155/77 H 98 08/20/19 02:35 62 14 89 L 08/20/19 02:00 80 26 H 165/55 H 96 Laboratory Results WBC 11.68, hemoglobin 9.5, hematocrit 30.1, platelet count 178, sodium 140, potassium 4.0, BUN 28, creatinine 4.16 Diagnostic Findings Follow-up CT of the head completed this morning. Images and radiologist interpretation reviewed and described above. PG Care Time/CCT Total # of Minutes Spent Total Time Spent with Patient: Total time spent is greater than 50% in coordination of care (as documented) at patient's floor/unit and/or counseling patient: Coding Level of Care Code 42703 Subseq Hosp Care Lvl 2 Diagnoses Cerebrovascular accident (CVA) I63.9 Seizure R56.9 Comfort measures only status Z51.5
--- NOTE | 2019-08-20 15:15 | Palliative Care Consultation ---
Date of Consultation August 20, 2019 Assessment & Plan (1) Comfort measures only status: -69 year old male patient with PMH afib, multiple cancers (not current), carotid endarterectomy, CHF, back pain, COPD on 2LNC PRN, CAD, depression/anxiety, ESRD on dialysis, GERD, pacemaker, CVA in July 2019, and others, presented to the hospital to have his left carotid endarterectomy performed. Patient has been on dialysis since January 2019. He lives at home with his . Patient presented to the hospital in July with TIA/CVA. Had left arm weakness and dysarthria, was not given tPA and symptoms improved. He was found to have carotid stenosis and had right sided carotid endarterectomy performed. Patient did fairly well and returned home with his with the support of home health. He presented now to have his left carotid done. Unfortunately, patient developed stroke like symptoms post-op, and has been found to have a significant left sided stroke. He has severe dysarthria and right sided hemiplegia. Speech saw patient and deemed him high risk for aspiration and is now NPO. Patient is now voicing that he wants to convert to comfort measures only and wants to stop dialysis as well. He refused dialysis today. The stuffed casing tier called and spoke with patient's . Palliative care is now consulted to discuss goals of care. -Met with patient this morning in room 104. He is awake and alert. Crying at times. He is dysarthric, but is oriented x4. His speech is comprehensible when he talks slowly. Patient states he does not want dialysis, he does not want a feeding tube, he wants to go home to . -Called patient's , Mónica, on phone. She has been granted permission to visit patient in the hospital during our time of restricted visitation. -Met with patient's Mónica and Dr. Jernigan. Full medical update given, including the fact that patient now has a stroke in the same place he likely had one before. He is unable to safely swallow without aspiration risk, he is crying and saying he does not want to continue full treatment. -Mónica and I then went into patient's room to discuss with him. He is fully able to understand and answer open-ended questions. Patient stated to his , "I don't want to live like this." "I want to be able to eat on my own." "I want to go home to live the rest of my life." -Patient's is tearful, but she is supportive of her 's wishes. We then called brady's daughter Raisa, who lives with the patient and his . I gave her an updated as well as what her father is saying. She is also supportive of bringing patient's wishes and bringing him home on hospice. -All are in agree with the plan: Comfort measures only. Stop all lab work and oral medications unrelated to comfort. Stop dialysis. Plan for home with hospice once it is set up. Allow comfort feeding despite the risk of aspiration-- no feeding tube. -Has PRN lorazepam. Will order Roxanol 5mg SL Q3h PRN pain or SOB as well. -Case management and lighthouse keeper updated. Case management will set up home hospice. -We will follow. -PPS 30%. (2) Cerebrovascular accident (CVA): (3) S/P carotid endarterectomy: (4) ESRD (end stage renal disease): History of Present Illness Attending Physician: Damien Jennings MD History of Present Illness This 69 year old male patient with PMH afib, multiple cancers (not current), carotid endarterectomy, CHF, back pain, COPD on 2LNC PRN, CAD, depression/anxiety, ESRD on dialysis, GERD, pacemaker, CVA in July 2019, and others, presented to the hospital to have his left carotid endarterectomy performed. Patient has been on dialysis since January 2019. He lives at home with his . Patient presented to the hospital in July with TIA/CVA. Had left arm weakness and dysarthria, was not given tPA and symptoms improved. He was found to have carotid stenosis and had right sided carotid endarterectomy performed. Patient did fairly well and returned home with his with the support of home health. He presented now to have his left carotid done. Unfortunately, patient developed stroke like symptoms post-op, and has been found to have a significant left sided stroke. He has severe dysarthria and right sided hemiplegia. Speech saw patient and deemed him high risk for aspiration and is now NPO. Patient is now voicing that he wants to convert to comfort measures only and wants to stop dialysis as well. He refused dialysis today. The stuffed casing tier called and spoke with patient's . Palliative care is now consulted to discuss goals of care. Thank you kindly for this consult. Palliative care team will follow as needed. Allergies Allergy/AdvReac Type Severity Reaction Status Date / Time promethazine Allergy Intermediate UNCONTROLLED Verified 08/17/19 07:52 MUSCLE MOVEMENTS codeine AdvReac Intermediate "trips me Verified 08/17/19 07:52 out" Home Medications Home Medications Medication Instructions Recorded Confirmed Type allopurinol 300 mg PO QAM 02/05/18 08/17/19 History aspirin [Aspir-81] 81 mg PO QAM 02/05/18 08/17/19 History atorvastatin 80 mg PO HS 02/05/18 08/17/19 History loratadine [Claritin] 10 mg PO QAM 02/05/18 08/17/19 History melatonin 10 mg PO HS 02/05/18 08/17/19 History nitroglycerin 0.3 mg SUBLINGUAL DIRECTED PRN 02/05/18 08/17/19 History pantoprazole 40 mg PO QAM 02/05/18 08/17/19 History PreserVision AREDS-2 1 tab PO QAM 02/16/18 08/17/19 History cholecalciferol (vitamin D3) 2,000 unit PO QAM 02/16/18 08/17/19 History [Vitamin D3] cyanocobalamin (vitamin B-12) 1,000 mcg PO QAM 02/16/18 08/17/19 History [Vitamin B-12] hydralazine 25 mg PO TID 05/15/18 08/17/19 History thiamine HCl (vitamin B1) 100 mg 100 mg PO QAM tab 12/22/18 08/17/19 History tablet albuterol sulfate 2 puff INHALATION Q4H PRN 02/12/19 08/17/19 History budesonide-formoterol [Symbicort] 2 puff INHALATION BID 02/12/19 08/17/19 History fluticasone propionate 1 spray INTRANASAL DAILY PRN 02/12/19 08/17/19 History isosorbide mononitrate 30 mg PO QAM 02/12/19 08/17/19 History tiotropium bromide [Spiriva with 1 cap INHALATION QAM 02/13/19 08/17/19 History HandiHaler] glipizide 5 mg PO QAM 11/21/19 03/17/20 History clonazepam [Klonopin] 0.5 mg PO DAILY PRN 05/03/19 08/17/19 History ascorbic acid (vitamin C) 1,000 mg PO QAM 07/09/19 08/17/19 History sevelamer carbonate [Renvela] 800 mg PO TIDM 07/09/19 08/17/19 History venlafaxine 75 mg PO QAM 07/09/19 08/17/19 History warfarin 2.5 mg PO DAILY #0 tab 07/17/19 08/17/19 Rx hydroxyzine HCl 25 mg PO HS 08/04/19 08/17/19 History polyethylene glycol 3350 [Miralax] 17 g PO BID PRN 08/04/19 08/17/19 History sennosides [senna] 17.2 mg PO DAILY PRN 08/04/19 08/17/19 History trazodone 150 mg PO HS 08/04/19 08/17/19 History enoxaparin [Lovenox] 80 mg SUBCUT DAILY 08/17/19 08/17/19 History metoprolol tartrate 50 mg PO BID 08/17/19 08/17/19 History Patient History Medical History Anemia Anxiety Atrial fibrillation DX 2006 - NO HX CARDIOVERSION Cancer HX OF BLADDER HX OF PROSTATE Carotid stenosis, bilateral CHF (congestive heart failure) Chronic back pain Chronic obstructive pulmonary disease on 2 L O2 prn, 3L HS with BiPAP (not using BiPAP currently due to mask issues) Coronary arteriosclerosis S/P BMS to RCA November 2012 Depression Diabetes mellitus, type 2 NIDDM Dialysis patient MON, WED AND FRI (RIGHT SHOULDER AREA CURRENT ACCESS) ESRD (end stage renal disease) on dialysis GERD (gastroesophageal reflux disease) Gout continue allopurinol for prophylaxis Hiatal hernia History of kidney stones Hyperlipidemia Hypertension Morbid obesity Osteoarthritis Pacemaker 2011 IMPLANTED FOR A-FIB Peripheral neuropathy Post traumatic stress disorder Presence of urostomy Sleep apnea BIPAP Stroke NOVEMBER 2017- SLURRED SPEECH/LEFT FOOT WEAKNESS- CT SCAN SHOWED EVIDENCE OF AN OLD STROKE- ? EXACT DATE RESIDUAL LEFT SIDED WEAKNESS TIA (transient ischemic attack) 07/09/2019 during hospital admission- did not receive thrombolytic therapy- dysarthria and left arm weakness improved. Unable to obtain MRI due to pacemaker Surgical History History of biopsy of bladder (Resolved) History of cardiac cath (Resolved) STENT PLACED 2011 History of carotid endarterectomy right carotid 07/13/[address] Jennings History of cataract surgery (Resolved) RT/LEFT History of cholecystectomy (Resolved) History of colonoscopy History of laminectomy (Resolved) LUMBAR History of prostatectomy (Resolved) History of tooth extraction (Resolved) History of urologic surgery FOR KIDNEY STONE History of urostomy BLADDER REMOVED D/T CANCER STOMA REVISED History of vascular access device right femoral line in currently. Pericardial disease (Resolved) PERICARDIAL WINDOW/MICROSCOPIC ([facility]) 2013 S/P arteriovenous (AV) fistula creation right arm (05/2019) Family History Other Family history non-contributory Denies family history of Stroke Social History Preferred Language: Serbian Communication Ability: Effective Communication Ability Comment: Need to re-assess with evolution of process Territory Representative Required: No Beliefs That Will Affect Care: None marital status: Current Living Situation: Spouse Current Living Situation Comment: pt and his live with their dtr current occupational status: retired Other Information That Helps Us Care for You: No Feels Safe at Home: Yes Safety Concerns: Feels Safe At This Time Smoking Status: Former smoker Tobacco Type: cigarettes ; Do You Dip or Chew Tobacco: No ; Smoking End Date: 06/2000 ; Second Hand Exposure: No ; Tobacco Cessation Education Requested by Patient: No Hx Alcohol Use: No Hx Substance Use: No Review of Systems Review of Systems: + right sided weakness no pain no SOB Physical Exam 2 Constitutional: + uncomfortable (restless) ENMT: external ear and nose normal, oropharynx normal Respiratory: normal respiratory effort, lungs clear to auscultation Auscultation: + diminished lung sounds Cardiovascular: Rate/Rhythm: regular rate and regular rhythm Extremities: no edema Gastrointestinal (Abdomen): Inspection/Auscultation: normal bowel sounds Percussion/Palpation: abdomen nontender Neurologic: awake; + does not move all extremities (right arm and leg flaccid) Speech / Cognition: + abnormal speech (garbled speec) Psychiatric: Orientation: alert, oriented to person, oriented to place and skinny ented to time Affect: + anxious affect and + tearful affect Insight: good insight Results & Data Vital Signs (Past 12 Hours) Vital Signs Temp Pulse Resp BP Pulse Ox 08/20/19 12:58 60 153/52 H 08/20/19 11:06 64 19 146/43 H 99 08/20/19 10:51 72 21 107/73 100 08/20/19 10:35 66 29 H 152/76 H 100 08/20/19 10:20 60 17 155/49 H 100 08/20/19 10:05 68 18 167/53 H 98 08/20/19 09:50 73 18 180/66 H 95 08/20/19 09:20 61 25 H 176/52 H 99 08/20/19 09:05 60 22 164/45 H 85 L 08/20/19 08:50 17 156/51 H 96 08/20/19 08:35 63 23 140/49 L 99 08/20/19 08:21 74 14 130/48 L 98 08/20/19 08:06 72 14 161/53 H 97 08/20/19 07:50 68 12 155/85 H 96 08/20/19 07:35 71 22 180/64 H 95 08/20/19 07:20 66 14 192/71 H 96 08/20/19 07:04 69 20 180/62 H 95 08/20/19 07:00 70 15 96 08/20/19 06:50 73 19 172/79 H 94 08/20/19 06:00 67 29 H 170/77 H 94 08/20/19 05:00 68 14 135/64 96 08/20/19 04:00 37.1 C 70 21 155/74 H 97 PG Care Time/CCT Total # of Minutes Spent Total Time Spent with Patient: Total time spent is greater than 50% in coordination of care (as documented) at patient's floor/unit and/or counseling patient: 70 minutes Coding Level of Care Code 97563 Inpt Consult Level 3 Diagnoses Comfort measures only status Z51.5 Cerebrovascular accident (CVA) I63.9 S/P carotid endarterectomy Z98.890 ESRD (end stage renal disease) N18.6 Time Spent (min) 70
[2019-08-20] MEDS ORDERED: LORazepam 0.5 MG TAB SL PRN (15:58)
[2019-08-20] MEDS ORDERED: HALOPERIDOL LACTATE 5 MG/ML 1 ML VIAL IV PRN (16:27)
[2019-08-20] MEDS ORDERED: HALOPERIDOL 2 MG/1 ML UDP PO PRN (16:52)
[2019-08-20] MEDS ORDERED: LANTUS PER UNIT CHARGE SQ SCH ×2 (18:00)
[2019-08-20] MEDS ORDERED: HALOPERIDOL ORAL SOLN 2 MG/ML PO ONE (18:30)
[2019-08-20] MEDS ORDERED: TRAZODONE HCL 50 MG TAB PO SCH (21:00)
[2019-08-20] MEDS: HALOPERIDOL 2 MG/1 ML UDP PO PRN ×2 (21:37→23:06)
[2019-08-20] MEDS ORDERED: MoRPHine SULFATE 5 MG/0.25 ML UDP PO PRN (23:28)
[2019-08-21] MEDS: METOPROLOL TARTRATE 1 MG/ML VIAL IV SCH (04:30)
[2019-08-21] MEDS: levETIRAcetam 500 MG in 0.9 % SODIUM CHLORIDE 100 ML IV SCH (08:11)
--- NOTE | 2019-08-21 14:43 | Discharge Summary ---
Date of Service August 21, 2019 Admission HPI Per Admitting Provider 69 yo m with multuple medical problems, including ESRD on HD, CHF, HTN, CAD, pacemaker, COPD, GOUT, DMII, a fib, and TIA in past, admitted with stroke like sx in July and underwent a right CEA which was uneventful. He also has a severe Left ICA stenosis He is now admitted for a left CEA. Pt continues to dialyze through permcath, just started using his RUE AVF for HD via single needle but it is not functioning normally. Principal Diagnosis Stroke Discharge Exam Constitutional WD/WN, vitals as above well developed, + morbidly obese, + obese and + physical limitations; no acute distress, + uncomfortable (restless) and not edematous Eyes + anicteric sclerae, PERRL and normal accommodation; no corneal abnormality ENMT external ear and nose normal, oropharynx normal Mouth: + dentures; no oral mucosal abnormality and oral mucous membranes not dry Mallampati Class: II Neck normal visual inspection, trachea midline, + shortened thyromental distance, + short neck, + thick neck and + limited neck extension Respiratory normal respiratory effort, lungs clear to auscultation normal respiratory effort Auscultation: lungs clear to auscultation bilaterally, + diminished lung sounds and + rales; no crackles, no rhonchi and no wheezes Cardiovascular Rate/Rhythm: regular rate and regular rhythm Heart Sounds: normal S1 and normal S2; no gallop, no murmur and no cardiac rub Vessels: no JVD Extremities: no pedal edema and no edema Gastrointestinal (Abdomen) normal bowel sounds, soft, nontender, no hepatosplenomegaly Inspection/Auscultation: normal bowel sounds Percussion/Palpation: abdomen soft; abdomen nontender Musculoskeletal Head/Neck/Chest: normocephalic and head atraumatic Extremities: + abnormal strength; no cyanosis and no clubbing Skin no rashes, warm and dry normal turgor; no lesions Neurologic CN's II-XI intact bilaterally, + focal motor deficit (right side paralysis), awake and + confused; + does not move all extremities (right arm and leg flaccid) Speech / Cognition: + abnormal speech (garbled speec) and + expressive aphasia (continues to attempt communication but only grunts and moans) Motor/Sensory: + abnormal movement (2/5 of RUE & RLE); no tremor and no asterixis Cranial Nerves: EOM intact bilaterally, tongue midline and able to rotate head bilaterally Psychiatric Orientation: alert, oriented x 3, oriented to person, oriented to place, oriented to time and cooperative Affect: + anxious affect and + tearful affect Insight: good insight Lymphatic no cervical or axillary lymphadenopathy Discharge Data Allergies Allergy/AdvReac Type Severity Reaction Status Date / Time promethazine Allergy Intermediate UNCONTROLLED Verified 08/17/19 07:52 MUSCLE MOVEMENTS codeine AdvReac Intermediate "trips me Verified 08/17/19 07:52 out" Consultations 08/17/19 14:17 Consult Provider Network Analyst Routine 08/17/19 19:45 Consult Neurology Routine 08/18/19 05:33 Consult Nephrology Routine 08/20/19 09:09 Consult Palliative Care Routine 08/20/19 12:04 Consult Case Management - Discharge Planning Routine Procedures Performed Operation Date: 08/17/19 09:50 Actual Procedures p Left Carotid Endarterectomy with Patch Graft ; Left neck exploration with Cerberal arteriogram(Left) - Damien Jennings MD Ordered Studies 08/17/19 13:59 CT head/brain wo con Stat 08/17/19 14:21 CT angio head w con Stat CT angio neck with con Stat 08/17/19 14:37 FL fluoroscopy <1hr Routine 08/18/19 20:12 CT head/brain wo con Urgent 08/20/19 09:30 CT head/brain wo con Routine Hospital Course (1) Comfort measures only status: - S/p Left carotid endarterectomy pt suffered acute left MCA infarct - measuring 5.5 cm large involving the cerebral cortex on repeat CT today 08/20/2019. Pt had a previous posterior MCA infarct in November 2018. - Palliative care is on board- and appreciate assistance with transition to home on hospice. (2) Cerebrovascular accident (CVA): - Pt continues with mixed aphasia, expressive greater than receptive. (3) S/P carotid endarterectomy: - Left, Competed on 08/[address] Jennings (4) Seizure: - Hx of such, had been previously maintained on keppra - D/c all unnecessary medications (5) Chronic obstructive pulmonary disease: - may continue O2 via 2L as pt is comfortable wearing it. (6) Atrial fibrillation: - Stop all medications at this time (7) CHF (congestive heart failure): (8) Morbid obesity: - BMI of 39.5 (9) Anemia: - Stable (10) Diabetes mellitus, type 2: - Holding all medications (11) Hyperlipidemia: (12) GERD (gastroesophageal reflux disease): (13) Pacemaker: (14) Peripheral neuropathy: (15) Osteoarthritis: (16) Depression: CODE: DNR/DNI Dispo: Unfortunately poor prognosis, CM assisting with home on hospice c are/planning/setup. Total Time Total Time Spent Total Time Spent (In Minutes): 35 Discharge Plan Discharge Items Patient Disposition: Hospice - Home Reason For Visit: Left Internal Carotid Artery Stenosis Discharge Diagnosis: Stroke Activity: Resume your previous activity Non-emergency contact: Primary Care Provider Call non-emergency contact if: your symptoms worsen Follow-up/Referrals: Toño Fry MD [Primary Care Provider] - Diet: Regular Diet Texture: Easy to Chew Addtl Attending Provider Instructions: Mr. Pierce had a stroke that caused aspiration with any eating or drinking. He did not wish to have a feeding tube and wants to eat, as such, he is going to have comfort feedings and will go home with hospice. Of note, he did not do well with Ativan and became agitated and upset. He did fairly well with Haldol oral solution at 2 mg dose. Given his PTSD and trouble with sleeping, I did probation counselor the that his normal sleeping medications could be tried crushed with a carrier. Pending Studies at Discharge: No Stand-Alone Forms: My [facility] Medications and DC Order Prescriptions: New haloperidol lactate 2 mg/mL Concentrate 2 mg PO Q1HWA PRN (Reason: agitation) Qty: 15 RF: 0 morphine concentrate 100 mg/5 mL (20 mg/mL) Solution 5 mg PO Q3H PRN (Reason: Pain or shortness of breath) Qty: 15 RF: 0 atropine 1 % Drops 4 drp sublingual Q1H PRN (Reason: secretions) Qty: 2 RF: 0 ondansetron 4 mg Tablet,Disintegrating 4 mg sublingual Q4H PRN (Reason: nausea and vomiting) Qty: 5 RF: 0 Continued melatonin 10 mg Tablet 10 mg PO HS RF: 0 albuterol sulfate 90 mcg/actuation Hfa Aerosol Inhaler 2 puff INHALATION Q4H PRN (Reason: sob) RF: 0 budesonide-formoterol [Symbicort] 160-4.5 mcg/actuation Hfa Aerosol Inhaler 2 puff INHALATION BID RF: 0 fluticasone propionate 50 mcg/actuation [place],Suspension 1 spray INTRANASAL DAILY PRN (Reason: Congestion) RF: 0 Spiriva with HandiHaler 18 mcg Capsule, W/Inhalation Device 1 cap INHALATION QAM RF: 0 clonazepam [Klonopin] 0.5 mg tablet 0.5 mg PO DAILY PRN (Reason: Anxiety) RF: 0 trazodone 150 mg Tablet 150 mg PO HS RF: 0 hydroxyzine HCl 25 mg Tablet 25 mg PO HS RF: 0 Discontinued thiamine HCl (vitamin B1) 100 mg tablet 100 mg PO QAM RF: 0 atorvastatin 80 mg Tablet 80 mg PO HS RF: 0 nitroglycerin 0.3 mg Tablet, Sublingual 0.3 mg Sublingual DIRECTED PRN (Reason: Chest Pain) RF: 0 aspirin [Aspir-81] 81 mg Tablet,Delayed Release (Dr/Ec) 81 mg PO QAM RF: 0 pantoprazole 40 mg Tablet,Delayed Release (Dr/Ec) 40 mg PO QAM RF: 0 allopurinol 300 mg Tablet 300 mg PO QAM RF: 0 loratadine [Claritin] 10 mg Tablet 10 mg PO QAM RF: 0 cyanocobalamin (vitamin B-12) [Vitamin B-12] 1,000 mcg Tablet 1,000 mcg PO QAM RF: 0 cholecalciferol (vitamin D3) [Vitamin D3] 1,000 unit Tablet 2,000 unit PO QAM RF: 0 PreserVision AREDS-2 [id number] Capsule 1 tab PO QAM RF: 0 hydralazine 25 mg tablet 25 mg PO TID RF: 0 isosorbide mononitrate 60 mg Tablet Extended Release 24 Hr 30 mg PO QAM RF: 0 sevelamer carbonate [Renvela] 800 mg tablet 800 mg PO TIDM RF: 0 ascorbic acid (vitamin C) 500 mg Capsule 1,000 mg PO QAM RF: 0 venlafaxine 37.5 mg tablet extended release 24hr 75 mg PO QAM RF: 0 warfarin 2.5 mg Tablet 2.5 mg PO DAILY Qty: 0 RF: 0 glipizide 10 mg tablet 5 mg PO QAM RF: 0 sennosides [senna] 8.6 mg tablet 17.2 mg PO DAILY PRN (Reason: Constipation) RF: 0 polyethylene glycol 3350 [Miralax] 17 gram powder in packet 17 g PO BID PRN (Reason: Constipation) RF: 0 metoprolol tartrate 50 mg Tablet 50 mg PO BID RF: 0 enoxaparin [Lovenox] 80 mg/0.8 mL Syringe 80 mg SUBCUT DAILY RF: 0 Discharge Orders: Discharge Order (Routine); Ordered 08/21/19 Ordered By: Lemuel Rizo Admission Data Admit Date/Time: 08/17/19 08:50 Attending Provider: Damien Jennings Admit Provider: Damien Jennings Primary Care Provider: Toño Fry Other Providers: [facility] ; Asaf Hollins ; Sean Jernigan ; Dung Vee ; Javier Aldrich ; Castro Lindsay ; Osmani Serra ; Trupti Esteban ; Sean Beck ; Julián Luong ; Mariel Brian Other Interventions: Discharge Summary Assessment (RN) Last Done: 08/21/19 10:22 DC Date/Time DO NOT enter until pt leaves facility: 08/21/19 11:47 Coding Level of Care Code D/C Day Management >30 mins Diagnoses Comfort measures only status Z51.5 Cerebrovascular accident (CVA) I63.9 S/P carotid endarterectomy Z98.890 Seizure R56.9 Chronic obstructive pulmonary disease J44.9 Atrial fibrillation I48.91 CHF (congestive heart failure) I50.9 Heart failure chronicity: unspecified Heart failure type: unspecified Morbid obesity E66.01 Anemia D64.9 Anemia type: unspecified type Diabetes mellitus, type 2 E11.9 Hyperlipidemia E78.5 GERD (gastroesophageal reflux disease) K21.9 Pacemaker Z95.0 Peripheral neuropathy G62.9 Osteoarthritis M19.90 Depression F32.9
== END 2019-08-21 11:47 | disposition hospice, home (50) | DRG 25 ==
LOC: ASU 07:15 → 1E 08:50 → 4W 08-20 13:40